=== PATIENT | female | born 1965 | race Caucasian/White ===

== ENCOUNTER 2016-03-07 11:01 | Day surgery (SDC) | payer MEDICARE ==
[2016-03-06 09:43] VITALS: BMI 30.4
[~2016-03-07 11:01] MED LIST: ALBUTEROL NEB (CONC) 2.5 MG/0.5 ML INHALATION ONE; ATROPINE SULFATE 0.4 MG/ML 1 ML VIAL IM ONE; LACTATED RINGERS 1,000 ML IV ONE; LACTATED RINGERS 1,000 ML IV SCH; LIDOCAINE 2% (PF) 20 MG/ML 10ML INHALATION ONE
[2016-03-07] MEDS ORDERED: PROPOFOL 10 MG/ML 20 ML VIAL IV ONE (12:11)
[2016-03-07] MEDS ORDERED: LIDOCAINE 2% INJ 20 MG/ML INTRATRACH ONE (12:19)
[2016-03-07] MEDS: HYDROmorphone 1 MG/ML 1 ML SYRINGE IVP ONE ×2 (13:18→13:24)
[2016-03-07] MEDS ORDERED: LEVALBUTEROL NEB 1.25 MG/3 ML AMP INHALATION PRN (13:38)
[2016-03-07] MEDS: SODIUM CHLORIDE 0.9% 1,000 ML IV SCH (14:06)
--- NOTE | 2016-03-07 14:12 | XR ---
EXAMINATION TYPE: XR chest 2V DATE OF EXAM: 03/07/2016 2:01 PM COMPARISON: 12/11/2015 HISTORY: asthma exacerbation TECHNIQUE: Frontal and lateral views of the chest are obtained. FINDINGS: There is no focal air space opacity, pleural effusion, or pneumothorax seen. The cardiac silhouette size is within normal limits. The osseous structures are intact. Right-sided MediPort ca theter is unchanged in position. IMPRESSION: No acute cardiopulmonary process.
[2016-03-07] MEDS: LEVOFLOXACIN 500 MG TAB PO SCH (14:33)
[2016-03-07] MEDS: methylPREDNISolone SOD SUCCI 125 MG/2 ML VIAL IV SCH ×3 (14:34→23:16)
[2016-03-07 14:54] LABS: Anisocytosis Slight; Basophils % (A) 0 %; CH 28.8; CHCM 31.4; Eosinophils % (A) 1 %; HCT 40.8 % (34.0-46.0); HDW 2.24; HGB 12.5 gm/dL (11.4-16.0); Luc # (Auto) 0.16; Luc % (Auto) 2; Lymphocytes # (A) 1.1 k/uL (1.0-4.8); Lymphocytes % (A) 17 %; MCH 28.2 pg (25.0-35.0); MCHC 30.7 g/dL (31.0-37.0); MCV 92.2 fL (80.0-100.0); Mean Platelet Volume 6.3; Monocytes # (A) 0.5 k/uL (0-1.0); Monocytes % (A) 8 %; Neutrophils # (A) 4.7 k/uL (1.3-7.7); Neutrophils % (A) 72 %; RBC 4.42 m/uL (3.80-5.40); RDW 16.2 % (11.5-15.5); WBC 6.6 k/uL (3.8-10.6); WBC (Perox) 6.67
[2016-03-07 15:08] LABS: Anion Gap 10 mmol/L; Blood Urea Nitrogen 14 mg/dL (7-17); Carbon Dioxide 23 mmol/L (22-30); Chloride 107 mmol/L (98-107); Glucose 82 mg/dL (74-99); Non-African American GFR(MDRD) >60 (>60 ml/min/1.73 sqM); Potassium 4.3 mmol/L (3.5-5.1); Sodium 140 mmol/L (137-145)
[2016-03-07] MEDS ORDERED: PILOCARPINE 5 MG TAB PO PRN (15:43)
[2016-03-07] MEDS ORDERED: MECLIZINE 12.5 MG TAB PO PRN (15:43)
[2016-03-07] MEDS ORDERED: FLUCONAZOLE 100 MG TAB PO PRN (15:43)
[2016-03-07] MEDS: BENZONATATE 100 MG CAP PO SCH ×2 (17:02→21:08)
[2016-03-07] MEDS: clonazePAM 0.5 MG TAB PO SCH ×2 (17:02→21:05)
[2016-03-07 17:18] LABS: RBC, Body Fluid 160 /uL
[2016-03-07] MEDS ORDERED: NON-FORMULARY DRUG (Dimethyl Fumarate [Tecfidera] 240 MG) PO SCH (17:30)
[2016-03-07] MEDS: LEVALBUTEROL NEB 1.25 MG/3 ML AMP INHALATION SCH (19:35)
[2016-03-07] MEDS: BUDESONIDE 1 MG/2 ML NEBU INHALATION SCH (19:35)
[2016-03-07] MEDS: CHOLESTYRAMINE (WITH SUGAR) 4 GM PACKET PO SCH (20:05)
--- NOTE | 2016-03-07 20:29 | PCN ---
DATE OF PROCEDURE: PROCEDURE PERFORMED: Bronchoscopy, airway examination, therapeutic lavage, BAL right middle lobe. PREOPERATIVE DIAGNOSIS: Severe asthma. POSTOPERATIVE DIAGNOSIS: Severe asthma. There was informed consent. There was universal timeout. The patient's procedure took place in Room #1 of [facility]. Provided IV conscious sedation. After the patient was adequately sedated and being fully monitored, the bronchoscope was inserted through the right nostril. It passed through the right nasopharynx into the oropharynx. The hypopharynx was identified and topicalized. The hypopharyngeal structures, including anterior commissure, true cords, false cords, arytenoids, piriform sinuses, right and left vallecula and epiglottis all appeared normal. After topicalization, bronchoscope was pushed through the glottic opening into the trachea. Trachea appeared relatively normal. There were thick secretions noted in the distal trachea and some of the secretions were saddling the tracheal pastor. The right and left mainstem were topicalized. The right upper lobe and its 3 segments, the right middle lobe and its 2 segments, the right lower lobe and its 5 segments, the left upper lobe proper and its 2 segments, the lingula and its 2 segments, and the left lower lobe and its 4 segments all had similar findings of diffuse erythema and bronchitis. There was hyperemia of the airways. The airways were friable. They bled easily. There were thick, yellow secretions noted throughout. They were mostly noted in the right lower lobe and left lower lobe. After they were suctioned, the bronchoscope was wedged into the right middle lobe and the BAL took place. The patient tolerated the procedure well. Additional topicalization took place and the patient's airways were cleansed further. There were no major complications or issues. The patient will be recovered.
[2016-03-07] MEDS: PRAMIPEXOLE 1 MG TAB PO SCH (21:08)
[2016-03-07] MEDS: MONTELUKAST 10 MG TAB PO SCH (21:08)
[2016-03-07] MEDS: HYDROmorphone 2 MG TAB PO PRN (21:09)
[2016-03-07] MEDS: PROMETHAZ-COD 6.25-10 MG/5 ML 5 ML CUP PO PRN (21:10)
[2016-03-08] MEDS: SODIUM CHLORIDE 0.9% 1,000 ML IV SCH ×2 (02:23→17:23)
[2016-03-08] MEDS: HYDROmorphone 2 MG TAB PO PRN ×4 (02:43→19:40)
[2016-03-08] MEDS: methylPREDNISolone SOD SUCCI 125 MG/2 ML VIAL IV SCH ×2 (05:59→11:05)
[2016-03-08] MEDS: PROMETHAZ-COD 6.25-10 MG/5 ML 5 ML CUP PO PRN ×3 (08:04→19:40)
[2016-03-08] MEDS: CHOLECALCIFEROL 1,000 UNIT TAB PO SCH (08:05)
[2016-03-08] MEDS: PRAMIPEXOLE 1 MG TAB PO SCH ×2 (08:05→20:57)
[2016-03-08] MEDS: HYDROCORTISONE 10 MG TAB PO SCH ×2 (08:06→11:06)
[2016-03-08] MEDS: PANTOPRAZOLE 40 MG TABLET PO SCH (08:06)
[2016-03-08] MEDS: clonazePAM 0.5 MG TAB PO SCH ×3 (08:07→20:56)
[2016-03-08] MEDS: CHOLESTYRAMINE (WITH SUGAR) 4 GM PACKET PO SCH ×2 (08:08→19:44)
[2016-03-08] MEDS: FLUDROCORTISONE 0.1 MG TAB PO SCH (08:08)
[2016-03-08] MEDS: FERROUS SULFATE 325 MG TAB PO SCH (08:08)
[2016-03-08] MEDS: BENZONATATE 100 MG CAP PO SCH ×3 (08:08→20:57)
[2016-03-08] MEDS: LEVALBUTEROL NEB 1.25 MG/3 ML AMP INHALATION SCH ×3 (09:05→19:20)
[2016-03-08] MEDS: BUDESONIDE 1 MG/2 ML NEBU INHALATION SCH ×2 (09:05→19:19)
[2016-03-08] MEDS: VORTIOXETINE HYDROBROMIDE 20 MG PO SCH (11:05)
--- NOTE | 2016-03-08 12:43 | P.HPIM ---
History of Present Illness H&P Date: 03/08/16 50-year-old female being seen at the request of pulmonary service for medical management. Patient underwent a bronchoscopy airway exam therapeutic lavage BAL the right middle lobe on March [address] Dougherty Patient states her last bronchoscopy was done in December 2015. Patient does have a history of severe asthma with difficulty clearing airway due to patient's history of multiple sclerosis patient states diagnosed with severe asthma in 2007 and has been followed closely by pulmonology service who is been managing her asthma symptoms. Patient additionally states in 2004 was diagnosed with multiple sclerosis does see a neurology Dr. Currently is resting comfortably in bed appears in no acute distress pulmonology participating in the plan of care Review of Systems Essentially unremarkable except as mentioned at the present illness Past Medical History Past Medical History: Asthma, COPD, Fibromyalgia, GERD/Reflux, Neurologic Disorder, Osteoarthritis (OA), Sleep Apnea/CPAP/BIPAP, Supraventricular Tachycardia (SVT) Additional Past Medical History / Comment(s): multiple sclerosis,optic neuritis, anemia,migraines,adrenal insufficiency,auto immune hepatitis, uses c-pap machine , avascular necrosis, uses cane and has knee brace. History of Any Multi-Drug Resistant Organisms: None Reported Past Surgical History: Bowel Resection, Cholecystectomy, Heart Catheterization, Hysterectomy, Joint Replacement, Orthopedic Surgery, Tonsillectomy Additional Past Surgical History / Comment(s): sinus surgery,blepharoplasty jayleen eyes,POWER PORT -IMPLANTABLE PORT-under right clavicle-bowel adhesions, rt knee replacement , 8 INCH BOWEL REMOVED, jayleen total hip replacement.03-07-16 BRONCHOSCOPY Past Anesthesia/Blood Transfusion Reactions: Blood Transfusion Reaction Additional Past Anesthesia/Blood Transfusion Reaction / Comment(s): HX OF BLOOD TRANSFUSION : HAS CARD STATING K ANTIBODY AFTER RECEIVING A TRANSFUSION Past Psychological History: Anxiety, Depression Smoking Status: Never smoker Past Alcohol Use History: Rare Past Drug Use History: None Reported - Past Family History Mother Family Medical History: Hypertension Father Family Medical History: Hypertension Brother(s) Additional Family Medical History / Comment(s): Brother-[place] X2 Medications and Allergies Home Medications Medication Instructions Recorded Confirmed Type Albuterol Inhaler [Ventolin Hfa 2 puff INHALATION RT-QID PRN 07/14/13 03/06/16 History Inhaler] Fluconazole [Diflucan] 100 mg PO DAILY PRN 07/14/13 03/06/16 History Montelukast [Singulair] 10 mg PO HS 07/14/13 03/06/16 History HYDROmorphone [Dilaudid] 4 mg PO Q4-6H PRN 08/03/13 03/06/16 History Cholecalciferol [Vitamin D3] 12,000 unit PO DAILY 07/22/14 03/06/16 History Meclizine [Antivert] 12.5 mg PO Q8HR PRN 08/28/14 03/06/16 History clonazePAM [KlonoPIN] 0.5 mg PO TID 01/25/15 03/06/16 History Cholestyramine (with Sugar) 4 gm PO BID 07/25/15 03/06/16 History [Questran Packet] Esomeprazole Magnesium [NexIUM] 40 mg PO QAM 07/25/15 03/06/16 History Dimethyl Fumarate [Tecfidera] 240 mg PO BID 11/19/15 03/06/16 History Ferrous Sulfate [Iron (65 MG 325 mg PO DAILY 11/19/15 03/06/16 History Elemental)] Fluticasone/Vilanterol [Breo 1 puff INHALATION RT-DAILY 11/19/15 03/06/16 History Ellipta 200-25 Mcg INH] Hydrocortisone [Cortef] 5 mg PO W/LUNCH 11/19/15 03/06/16 History Hydrocortisone [Cortef] 15 mg PO DAILY 11/19/15 03/06/16 History hydrOXYzine PAMOATE [Vistaril] 100 mg PO DAILY PRN 11/19/15 03/06/16 History Pilocarpine [Salagen] 5 mg PO QID PRN 12/11/15 03/06/16 History Vortioxetine Hydrobromide 20 mg PO QAM 12/11/15 03/06/16 History [Trintellix] Xeomin Inj 1 injection IM Q90D 12/11/15 03/06/16 History Benzonatate [Tessalon Perles] 200 mg PO TID 03/06/16 03/06/16 History Fludrocortisone [Florinef] 0.1 mg PO QAM 03/06/16 03/06/16 History Pramipexole Di-HCl [Mirapex] 1 mg PO BID 03/06/16 03/06/16 History Promethaz-Cod 6.25-10 mg/5 ml 5 ml PO DIRECTED PRN 03/06/16 03/06/16 History [Phenergan with Codeine] QUEtiapine [SEROquel] 50 mg PO HS 03/06/16 03/06/16 History Esomeprazole Magnesium [NexIUM] 40 mg PO DAILY 03/07/16 03/07/16 History Mometasone Inhalr 220 Mcg/Puff 2 puff INHALATION 03/07/16 History [Asmanex] Allergies Allergy/AdvReac Type Severity Reaction Status Date / Time bupropion HCl Allergy Severe Rash/Hives Verified 03/06/16 09:12 [From Wellbutrin] lamotrigine [From Lamictal] Allergy Severe Rash/Hives Verified 03/06/16 09:12 milk Allergy Severe Nausea & Verified 03/06/16 09:12 Vomiting oxaprozin [From Daypro] Allergy Severe Rash/Hives Verified 03/06/16 09:12 Penicillins Allergy Severe Rash/Hives Verified 03/06/16 09:12 soy Allergy Severe Nausea & Verified 03/06/16 09:12 Vomiting & Diarrhea Sulfa (Sulfonamide Allergy Severe Anaphylaxis Verified 03/06/16 09:12 Antibiotics) apple Allergy Unknown diarrhea, Verified 03/06/16 09:12 bloating, upset stomach. azithromycin Allergy Unknown Rash/Hives, Verified 03/06/16 09:12 RED SKING, ITCHING banana Allergy Unknown diarrhea, Verified 03/06/16 09:12 bloating, upset stomach doxycycline Allergy Unknown Rash/Hives Verified 03/06/16 09:12 latex Allergy Unknown Blisters Verified 03/06/16 09:12 albumin human Allergy Rash/Hives Verified 03/07/16 11:31 [From Rebif (with albumin)] dicyclomine [From Bentyl] Allergy Rash/Hives Verified 03/07/16 11:29 duloxetine [From Cymbalta] Allergy Rash/Hives Verified 03/07/16 11:30 wheat Allergy Nausea & Verified 03/06/16 09:12 Vomiting & Diarrhea Beef Containing Products AdvReac Severe bloating, Verified 03/06/16 09:12 abd pain, nasal congestion corn [[place]] AdvReac Severe Nausea & Verified 03/06/16 09:12 Vomiting & Diarrhea Egg Derived AdvReac Severe bloating, Verified 03/06/16 09:12 abd pain, nasal congestion gluten AdvReac Severe Nausea & Verified 03/06/16 09:12 Vomiting & Diarrhea interferon beta AdvReac Severe Rash/Hives Verified 03/06/16 09:12 interferon beta-1a AdvReac Severe Rash/Hives Verified 03/06/16 09:12 [From Avonex] peanut AdvReac Severe bloating, Verified 03/06/16 09:12 abd pain, nasal congestion tomato [Tomato] AdvReac Severe bloating, Verified 03/06/16 09:12 abd pain, nasal congestion Pork/Porcine Containing AdvReac Mild Abdominal Verified 03/06/16 09:15 Products Pain, bloating, nasal congestion ADHESIVE Allergy Severe BLISTERS Uncoded 03/06/16 09:12 TO SKIN MASTISOL Allergy Severe BLISTERS Uncoded 03/06/16 09:12 TO SKIN STERISTRIPS Allergy Severe BLISTERS Uncoded 03/06/16 09:12 TO SKIN METAL Allergy Unknown RASH AND Uncoded 03/06/16 09:12 BLISTERS TO SKIN obrien's yeast AdvReac Severe bloating, Uncoded 03/06/16 09:12 abd pain, nasal congestion Physical Exam Vitals: Vital Signs Temp Pulse Pulse Pulse Resp BP BP 03/08/16 09:29 116 H 03/08/16 09:05 104 H 03/08/16 07:00 96.7 F L 73 18 124/75 03/07/16 22:49 98.2 F 91 20 123/78 03/07/16 19:51 88 03/07/16 19:35 88 03/07/16 15:00 97.4 F L 84 22 125/76 03/07/16 14:07 16 03/07/16 13:15 68 16 145/86 03/07/16 13:00 65 18 135/90 03/07/16 12:45 70 20 133/85 03/07/16 12:28 97.5 F L 72 20 117/73 Pulse Ox 03/08/16 09:29 03/08/16 09:05 03/08/16 07:00 97 03/07/16 22:49 97 03/07/16 19:51 03/07/16 19:35 03/07/16 15:00 96 03/07/16 14:07 03/07/16 13:15 97 03/07/16 13:00 93 L 03/07/16 12:45 96 03/07/16 12:28 95 Intake and Output 03/07/16 03/08/16 03/08/16 22:59 06:59 14:59 Intake Total 200 Balance 200 Intake: Oral 200 Other: # Voids 1 GENERAL APPEARANCE: 50-year-old female patient is alert, oriented, in no acute distress. Sitting up in bed pleasant cooperative talkative appearing in no acute respiratory distress VITAL SIGNS reviewed: HEENT: Head is normocephalic and atraumatic. Pupils are equal and reactive. The nares are patent. Oropharynx is clear without lesions. NECK: Supple without lymphadenopathy. Traches midline. HEART: S1, S2. Regular rate and rhythm. No murmur noted denying chest pain Chest MediPort in place right anterior chest wall patent LUNGS: Posterior diminished at the bases bilateral coarse prolonged expiratory wheezing noted occasional dry nonproductive cough noted. Sats on 2 L are 97% ABDOMEN: Soft, nontender, nondistended with good bowel sounds. No peritoneal signs. No palpable organomegaly or masses. EXTREMITIES: Normal skin color and turgor. No cyanosis, rash, ulceration, clubbing or edema. Radial pedal pulses are 2/4 bilaterally. Results CBC & Chem 7: 03/07/16 14:31 03/07/16 14:31 Labs: Abnormal Lab Results - Last 24 Hours (Table) 03/07/16 Range/Units 14:31 MCHC 30.7 L (31.0-37.0) g/dL RDW 16.2 H (11.5-15.5) % Microbiology - Last 24 Hours (Table) 03/07/16 12:15 Gram Stain - Preliminary Bronchial Washings - Left Bronchial Washings Culture - Preliminary 03/07/16 12:15 Fungal Culture - Preliminary Bronchial Washings - Left 03/07/16 12:15 Acid Fast Bacilli Culture - Preliminary Bronchial Washings - Left Thrombosis Risk Factor Assmnt - Choose All That Apply Each Factor Represents 1 point: Abnormal pulmonary function (COPD), Age 41-60 years, Obesity (BMI >25) Other Risk Factors: No Thrombosis Risk Factor Assessment Total Risk Factor Score: 3 Thrombosis Risk Factor Assessment Level: Moderate Risk Assessment and Plan Plan: Impression History of severe asthma History of multiple sclerosis diagnosed in 2004 Physical debilitated due to chronic illness History of severe asthma with reoccurring bronchoscopy Status post March 07 bronchoscopic airway exam therapeutic lavage BAL right middle lobe due to severe asthma Obstructive sleep apnea moderate in severity within AHI of 17 Chronic bronchial asthma Chronic anemia Hypothyroid Hyperlipidemia History of adrenal insufficiency Plan Resume home meds as appropriate Pulmonary management defer to DVT and GI prophylaxis Titrate the O2 keep sats greater than 90% Further recommendations pending will follow medical course addressing medical issues as they arise The above dictated assessment and findings were discussed with dr santiago . Impression and the plan of care have been dictated as directed. Zeny Paige nurse practitioner acting as a scribe for dr santiago
[2016-03-08] MEDS: LEVOFLOXACIN 500 MG TAB PO SCH (13:03)
--- NOTE | 2016-03-08 13:05 | P.CNPUL ---
History of Present Illness Consult date: 03/08/16 Requesting physician: Marzena Quintanilla Reason for consult: asthma Chief complaint: Shortness of breath, cough congestion. History of present illness: This is a very pleasant 50-year-old female patient who follows with Dr. Dougherty as her primary care physician. She has a history of multiple sclerosis, obstructive sleep apnea, avascular necrosis of the left hip status post left hip arthroplasty, SVT, hypothyroidism, anemia, adrenal insufficiency, autoimmune hepatitis, pots. She presented here yesterday for an outpatient bronchoscopy with Dr. Dougherty and subsequently admitted after failing outpatient therapy for acute exacerbation of her asthma. She is seen today in consultation. She is on the regular medical floor. She is awake and alert in no acute distress. She denies any worsening shortness of breath, cough or congestion. She is not quite back to her baseline. She's been maintained on Levaquin. Her chest x-ray reveals no acute pulmonary process. She is maintaining good O2 saturations in the upper 90s on room air. She's been afebrile. No leukocytosis. Bronchial wash cultures are pending. Review of Systems 14 point review of system was conducted. All negative other than his medications the HPI. Past Medical History Past Medical History: Asthma, COPD, Fibromyalgia, GERD/Reflux, Neurologic Disorder, Osteoarthritis (OA), Sleep Apnea/CPAP/BIPAP, Supraventricular Tachycardia (SVT) Additional Past Medical History / Comment(s): multiple sclerosis,optic neuritis, anemia,migraines,adrenal insufficiency,auto immune hepatitis, uses c-pap machine , avascular necrosis, uses cane and has knee brace. History of Any Multi-Drug Resistant Organisms: None Reported Past Surgical History: Bowel Resection, Cholecystectomy, Heart Catheterization, Hysterectomy, Joint Replacement, Orthopedic Surgery, Tonsillectomy Additional Past Surgical History / Comment(s): sinus surgery,blepharoplasty jayleen eyes,POWER PORT -IMPLANTABLE PORT-under right clavicle-bowel adhesions, rt knee replacement , 8 INCH BOWEL REMOVED, jayleen total hip replacement.03-07-16 BRONCHOSCOPY Past Anesthesia/Blood Transfusion Reactions: Blood Transfusion Reaction Additional Past Anesthesia/Blood Transfusion Reaction / Comment(s): HX OF BLOOD TRANSFUSION : HAS CARD STATING K ANTIBODY AFTER RECEIVING A TRANSFUSION Past Psychological History: Anxiety, Depression Smoking Status: Never smoker Past Alcohol Use History: Rare Past Drug Use History: None Reported - Past Family History Mother Family Medical History: Hypertension Father Family Medical History: Hypertension Brother(s) Additional Family Medical History / Comment(s): Brother-[place] X2 Medications and Allergies Home Medications Medication Instructions Recorded Confirmed Type Albuterol Inhaler [Ventolin Hfa 2 puff INHALATION RT-QID PRN 07/14/13 03/06/16 History Inhaler] Fluconazole [Diflucan] 100 mg PO DAILY PRN 07/14/13 03/06/16 History Montelukast [Singulair] 10 mg PO HS 07/14/13 03/06/16 History HYDROmorphone [Dilaudid] 4 mg PO Q4-6H PRN 08/03/13 03/06/16 History Cholecalciferol [Vitamin D3] 12,000 unit PO DAILY 07/22/14 03/06/16 History Meclizine [Antivert] 12.5 mg PO Q8HR PRN 08/28/14 03/06/16 History clonazePAM [KlonoPIN] 0.5 mg PO TID 01/25/15 03/06/16 History Cholestyramine (with Sugar) 4 gm PO BID 07/25/15 03/06/16 History [Questran Packet] Esomeprazole Magnesium [NexIUM] 40 mg PO QAM 07/25/15 03/06/16 History Dimethyl Fumarate [Tecfidera] 240 mg PO BID 11/19/15 03/06/16 History Ferrous Sulfate [Iron (65 MG 325 mg PO DAILY 11/19/15 03/06/16 History Elemental)] Fluticasone/Vilanterol [Breo 1 puff INHALATION RT-DAILY 11/19/15 03/06/16 History Ellipta 200-25 Mcg INH] Hydrocortisone [Cortef] 5 mg PO W/LUNCH 11/19/15 03/06/16 History Hydrocortisone [Cortef] 15 mg PO DAILY 11/19/15 03/06/16 History hydrOXYzine PAMOATE [Vistaril] 100 mg PO DAILY PRN 11/19/15 03/06/16 History Pilocarpine [Salagen] 5 mg PO QID PRN 12/11/15 03/06/16 History Vortioxetine Hydrobromide 20 mg PO QAM 12/11/15 03/06/16 History [Trintellix] Xeomin Inj 1 injection IM Q90D 12/11/15 03/06/16 History Benzonatate [Tessalon Perles] 200 mg PO TID 03/06/16 03/06/16 History Fludrocortisone [Florinef] 0.1 mg PO QAM 03/06/16 03/06/16 History Pramipexole Di-HCl [Mirapex] 1 mg PO BID 03/06/16 03/06/16 History Promethaz-Cod 6.25-10 mg/5 ml 5 ml PO DIRECTED PRN 03/06/16 03/06/16 History [Phenergan with Codeine] QUEtiapine [SEROquel] 50 mg PO HS 03/06/16 03/06/16 History Esomeprazole Magnesium [NexIUM] 40 mg PO DAILY 03/07/16 03/07/16 History Mometasone Inhalr 220 Mcg/Puff 2 puff INHALATION 03/07/16 History [Asmanex] Allergies Allergy/AdvReac Type Severity Reaction Status Date / Time bupropion HCl Allergy Severe Rash/Hives Verified 03/06/16 09:12 [From Wellbutrin] lamotrigine [From Lamictal] Allergy Severe Rash/Hives Verified 03/06/16 09:12 milk Allergy Severe Nausea & Verified 03/06/16 09:12 Vomiting oxaprozin [From Daypro] Allergy Severe Rash/Hives Verified 03/06/16 09:12 Penicillins Allergy Severe Rash/Hives Verified 03/06/16 09:12 soy Allergy Severe Nausea & Verified 03/06/16 09:12 Vomiting & Diarrhea Sulfa (Sulfonamide Allergy Severe Anaphylaxis Verified 03/06/16 09:12 Antibiotics) apple Allergy Unknown diarrhea, Verified 03/06/16 09:12 bloating, upset stomach. azithromycin Allergy Unknown Rash/Hives, Verified 03/06/16 09:12 RED SKING, ITCHING banana Allergy Unknown diarrhea, Verified 03/06/16 09:12 bloating, upset stomach doxycycline Allergy Unknown Rash/Hives Verified 03/06/16 09:12 latex Allergy Unknown Blisters Verified 03/06/16 09:12 albumin human Allergy Rash/Hives Verified 03/07/16 11:31 [From Rebif (with albumin)] dicyclomine [From Bentyl] Allergy Rash/Hives Verified 03/07/16 11:29 duloxetine [From Cymbalta] Allergy Rash/Hives Verified 03/07/16 11:30 wheat Allergy Nausea & Verified 03/06/16 09:12 Vomiting & Diarrhea Beef Containing Products AdvReac Severe bloating, Verified 03/06/16 09:12 abd pain, nasal congestion corn [[place]] AdvReac Severe Nausea & Verified 03/06/16 09:12 Vomiting & Diarrhea Egg Derived AdvReac Severe bloating, Verified 03/06/16 09:12 abd pain, nasal congestion gluten AdvReac Severe Nausea & Verified 03/06/16 09:12 Vomiting & Diarrhea interferon beta AdvReac Severe Rash/Hives Verified 03/06/16 09:12 interferon beta-1a AdvReac Severe Rash/Hives Verified 03/06/16 09:12 [From Avonex] peanut AdvReac Severe bloating, Verified 03/06/16 09:12 abd pain, nasal congestion tomato [Tomato] AdvReac Severe bloating, Verified 03/06/16 09:12 abd pain, nasal congestion Pork/Porcine Containing AdvReac Mild Abdominal Verified 03/06/16 09:15 Products Pain, bloating, nasal congestion ADHESIVE Allergy Severe BLISTERS Uncoded 03/06/16 09:12 TO SKIN MASTISOL Allergy Severe BLISTERS Uncoded 03/06/16 09:12 TO SKIN STERISTRIPS Allergy Severe BLISTERS Uncoded 03/06/16 09:12 TO SKIN METAL Allergy Unknown RASH AND Uncoded 03/06/16 09:12 BLISTERS TO SKIN obrien's yeast AdvReac Severe bloating, Uncoded 03/06/16 09:12 abd pain, nasal congestion Physical Exam Vitals: Vital Signs Temp Pulse Pulse Pulse Resp BP BP 03/08/16 09:29 116 H 03/08/16 09:05 104 H 03/08/16 07:00 96.7 F L 73 18 124/75 03/07/16 22:49 98.2 F 91 20 123/78 03/07/16 19:51 88 03/07/16 19:35 88 03/07/16 15:00 97.4 F L 84 22 125/76 03/07/16 14:07 16 03/07/16 13:15 68 16 145/86 03/07/16 13:00 65 18 135/90 Pulse Ox 03/08/16 09:29 03/08/16 09:05 03/08/16 07:00 97 03/07/16 22:49 97 03/07/16 19:51 03/07/16 19:35 03/07/16 15:00 96 03/07/16 14:07 03/07/16 13:15 97 03/07/16 13:00 93 L Intake and Output 03/07/16 03/08/16 03/08/16 22:59 06:59 14:59 Intake Total 200 Balance 200 Intake: Oral 200 Other: # Voids 1 GENERAL EXAM: Alert, active, comfortable in no apparent distress. HEAD: Normocephalic. EYES: Normal reaction of pupils, equal size. NOSE: Clear with pink turbinates. THROAT: No erythema or exudates. NECK: No masses, no JVD. CHEST: No chest wall deformity. LUNGS: Equal air entry with no crackles, wheeze, rhonchi or dullness. CVS: S1 and S2 normal with no audible mumurs, regular rhythm. ABDOMEN: No hepatosplenomegaly, normal bowel sounds, no guarding or rigidity. SPINE: No scoliosis or deformity SKIN: No rashes CENTRAL NERVOUS SYSTEM: No focal deficits, tone is normal in all 4 extremities. Extremities: There is no significant peripheral edema. No clubbing, no cyanosis. Peripheral pulses are intact. Results - Laboratory Findings CBC and BMP: 03/07/16 14:31 03/07/16 14:31 Abnormal lab findings: Abnormal Labs 03/07/16 03/07/16 12:15 14:31 MCHC 30.7 L RDW 16.2 H Viral Test See Below H - Diagnostic Findings Chest x-ray: image reviewed (No acute pulmonary process.) Assessment and Plan Plan: Impression: #1 Acute exacerbation of severe persistent chronic bronchial asthma. Status post bronchoscopy with BAL, cultures of which are pending. #2 Obstructive sleep apnea, moderate in severity with an AHI of 17. #3 Multiple sclerosis with a history of optic neuritis. #4 History of autoimmune hepatitis. #5 Adrenal insufficiency. #6 Chronic anemia. #7 Hypothyroidism. #8 Hyperlipidemia. #9 History of avascular necrosis of the left hip, status post total left hip arthroplasty. Plan: The patient's case was reviewed and discussed with Dr. Irwin. We'll continue with her current medications including Pulmicort inhalations twice a day, Tessalon Perles, Xopenex inhalations 3 times a day and when necessary, Singulair, empiric antibiotics in the form of Levaquin. She'll remain on her usual dose of Cortef. She does complain of insomnia. We'll discontinue the IV Solu-Medrol. Will increase her activity as tolerated. We'll continue to follow make further recommendations based on her clinical status.
--- NOTE | 2016-03-08 13:09 | P.PN ---
Progress Note - Text Patient seen and examined by me H&P dictated by Zeny Paige nurse practionner working with me today.
[2016-03-08] MEDS: HEPARIN SODIUM,PORCINE 5,000 UNIT/ML 1 ML VIAL SQ SCH ×2 (15:16→22:59)
[2016-03-08] MEDS: MONTELUKAST 10 MG TAB PO SCH (20:57)
[2016-03-08] MEDS ORDERED: traZODone HCL 50 MG TAB PO SCH (21:00)
[2016-03-09] MEDS: SODIUM CHLORIDE 0.9% 1,000 ML IV SCH (05:20)
[2016-03-09 07:34] VITALS: BP 122/82; RESP 18; TEMP 96.4
[2016-03-09] MEDS: clonazePAM 0.5 MG TAB PO SCH (08:03)
[2016-03-09] MEDS: HEPARIN SODIUM,PORCINE 5,000 UNIT/ML 1 ML VIAL SQ SCH (08:03)
[2016-03-09] MEDS: HYDROmorphone 2 MG TAB PO PRN (08:04)
[2016-03-09] MEDS: PROMETHAZ-COD 6.25-10 MG/5 ML 5 ML CUP PO PRN (08:04)
[2016-03-09] MEDS: BENZONATATE 100 MG CAP PO SCH (08:04)
[2016-03-09] MEDS: CHOLESTYRAMINE (WITH SUGAR) 4 GM PACKET PO SCH (08:05)
[2016-03-09] MEDS: PANTOPRAZOLE 40 MG TABLET PO SCH (08:05)
[2016-03-09] MEDS: VORTIOXETINE HYDROBROMIDE 20 MG PO SCH (08:05)
[2016-03-09] MEDS: CHOLECALCIFEROL 1,000 UNIT TAB PO SCH (08:05)
[2016-03-09] MEDS: HYDROCORTISONE 10 MG TAB PO SCH ×2 (08:05→11:45)
[2016-03-09] MEDS: FERROUS SULFATE 325 MG TAB PO SCH (08:05)
[2016-03-09] MEDS: FLUDROCORTISONE 0.1 MG TAB PO SCH (08:05)
[2016-03-09] MEDS: PRAMIPEXOLE 1 MG TAB PO SCH (08:05)
[2016-03-09] MEDS: BUDESONIDE 1 MG/2 ML NEBU INHALATION SCH (08:55)
[2016-03-09] MEDS: LEVALBUTEROL NEB 1.25 MG/3 ML AMP INHALATION SCH ×2 (08:55→13:41)
--- NOTE | 2016-03-09 10:28 | P.PN ---
Subjective 50-year-old being seen on rounds this morning currently sitting up in bed. Patient states breathing has improved. no new events. Patient is being followed by pulmonology service. Patient was admitted on Thursday outpatient bronchoscopy Dr. terry subsequently admitted being treated currently for an acute exacerbation of asthma patient has been afebrile and is sitting up in the bed does not appear to be any acute distress talkative bronchial washings pending blood cultures pending no growth 24 hours bronchial washings acid fast bacilli are negative Objective - Vital Signs Vital signs: Vital Signs Temp 96.4 F L 03/09/16 07:00 Pulse 96 03/09/16 09:14 Resp 18 03/09/16 07:00 BP 122/82 03/09/16 07:00 Pulse Ox 95 03/09/16 07:00 Intake & Output 03/08/16 03/09/16 03/09/16 18:59 06:59 18:59 Intake Total 600 Balance 600 Intake: IV 600 Sodium Chloride 0.9% 1, 600 000 ml @ 75 mls/hr IV . [id number] [facility] Rx#:[id number] Other: # Voids 3 1 - Exam Physical exam 50-year-old female pleasant cooperative oriented 3 talkative watching television sitting up in bed Lungs bilateral adequate air entry. Not able to appreciate any wheezing this morning no cough noted on room air sats are 95 -96% Heart S1-S2 audible regular Abdomen soft nontender reports no nausea vomiting Extremities no edema tenderness - Labs CBC & Chem 7: 03/07/16 14:31 03/07/16 14:31 Labs: Abnormal Lab Results - Last 24 Hours (Table) 03/07/16 Range/Units 12:15 Viral Test See Below H Microbiology - Last 24 Hours (Table) 03/07/16 12:15 Acid Fast Bacilli Smear - Final Bronchial Washings - Left Acid Fast Bacilli Culture - Preliminary 03/07/16 14:31 Blood Culture - Preliminary Blood No Growth after 24 hours 03/07/16 14:23 Blood Culture - Preliminary Blood No Growth after 24 hours Assessment and Plan Plan: Impression History of severe asthma History of multiple sclerosis diagnosed in 2004 Physical debilitated due to chronic illness History of severe asthma with reoccurring bronchoscopy Status post March 07 bronchoscopic airway exam therapeutic lavage BAL right middle lobe due to severe asthma Obstructive sleep apnea moderate in severity within AHI of 17 Chronic bronchial asthma Chronic anemia Hypothyroid Hyperlipidemia History of adrenal insufficiency History of avascular necrosis of the left hip status post total left hip arthroplasty Plan Pulmonary to follow-up on the bronchial washings continue with current plan of care per pulmonology service Resume home meds as appropriate DVT and GI prophylaxis Titrate the O2 keep sats greater than 90% Continue the Levaquin 500 mg daily as ordered Continue Cortef home dose Further recommendations pending will follow medical course addressing medical issues as they arise The above dictated assessment and findings were discussed with dr santiago . Impression and the plan of care have been dictated as directed. Zeny Paige nurse practitioner acting as a scribe for dr santiago
[2016-03-09 13:44] VITALS: PULSE 100
--- NOTE | 2016-03-09 13:52 | P.DS ---
Providers Expected date of discharge: 03/09/16 Attending physician: Josselin Gloria Consults: 03/07/16 13:10 Consult Physician Routine Consulting Provider: Seferino Dougherty Consult Reason/Comments: post bronch Do you want consulting provider notified?: Already Contacted Primary care physician: Seferino Dougherty Hospital Course: Diagnoses on discharge #1 acute asthma exacerbation, patient underwent bronchoscopy with BAL. Culture results pending #2 underlying history of obstructive sleep apnea #3 underlying history of multiple sclerosis #4 underlying history of autoimmune hepatitis #5 underlying history of adrenal insufficiency #6 underlying history of chronic anemia #7 hypothyroidism #8 hyperlipidemia #9 and underlying history of avascular necrosis of the left hip with history of left total hip arthroplasty Hospital course Patient is a 50-year-old female who follows with Dr. Irwin and Dr. Lucia as outpatient who had worsening cough and shortness of breath she underwent bronchoscopy with BAL. Culture results are still pending. Patient improved significantly after bronchoscopy, she was evaluated today by Dr. Irwin and was cleared for discharge. During this admission patient was maintained on Levaquin and Diflucan. Per Dr. Irwin recommendation discontinue Levaquin and discontinue Diflucan. No need for antibiotic at the time of discharge. Patient will be discharged home on . She follows with Dr. Dougherty as her primary care physician she was instructed to follow-up with him within 2-3 days Plan - Discharge Summary Discharge Medication List Albuterol Inhaler [Ventolin Hfa Inhaler] 2 puff INHALATION RT-QID PRN 07/14/13 [ History] Montelukast [Singulair] 10 mg PO HS 07/14/13 [History] HYDROmorphone [Dilaudid] 4 mg PO Q4-6H PRN 08/03/13 [History] Cholecalciferol [Vitamin D3] 12,000 unit PO DAILY 07/22/14 [History] Meclizine [Antivert] 12.5 mg PO Q8HR PRN 08/28/14 [History] clonazePAM [KlonoPIN] 0.5 mg PO TID 01/25/15 [History] Cholestyramine (with Sugar) [Questran Packet] 4 gm PO BID 07/25/15 [History] Esomeprazole Magnesium [NexIUM] 40 mg PO QAM 07/25/15 [History] Dimethyl Fumarate [Tecfidera] 240 mg PO BID 11/19/15 [History] Ferrous Sulfate [Iron (65 MG Elemental)] 325 mg PO DAILY 11/19/15 [History] Fluticasone/Vilanterol [Breo Ellipta 200-25 Mcg INH] 1 puff INHALATION RT-DAILY 11/19/15 [History] Hydrocortisone [Cortef] 5 mg PO W/LUNCH 11/19/15 [History] Hydrocortisone [Cortef] 15 mg PO DAILY 11/19/15 [History] hydrOXYzine PAMOATE [Vistaril] 100 mg PO DAILY PRN 11/19/15 [History] Pilocarpine [Salagen] 5 mg PO QID PRN 12/11/15 [History] Vortioxetine Hydrobromide [Trintellix] 20 mg PO QAM 12/11/15 [History] Xeomin Inj 1 injection IM Q90D 12/11/15 [History] Benzonatate [Tessalon Perles] 200 mg PO TID 03/06/16 [History] Fludrocortisone [Florinef] 0.1 mg PO QAM 03/06/16 [History] Pramipexole Di-HCl [Mirapex] 1 mg PO BID 03/06/16 [History] Promethaz-Cod 6.25-10 mg/5 ml [Phenergan with Codeine] 5 ml PO DIRECTED PRN 03/06/16 [History] QUEtiapine [SEROquel] 50 mg PO HS 03/06/16 [History] Esomeprazole Magnesium [NexIUM] 40 mg PO DAILY 03/07/16 [History] Mometasone Inhalr 220 Mcg/Puff [Asmanex] 2 puff INHALATION 03/07/16 [History]
[2016-03-09] MEDS: LEVOFLOXACIN 500 MG TAB PO SCH (13:54)
== END 2016-03-09 14:14 | disposition home or self-care (01) ==
LOC: ORWHC2ENDO 11:01 → 4MS4W 12:26 → ORWHC2ENDO 03-09 14:14
PROVIDERS: ATTEND Internal Medicine
DX: J45.901 Unspecified asthma with (acute) exacerbation (principal); J81.1 Chronic pulmonary edema; M79.7 Fibromyalgia; M19.90 Unspecified osteoarthritis, unspecified site; G47.33 Obstructive sleep apnea (adult) (pediatric); F51.9 Sleep disorder not due to a substance or known physiological condition, unspecified; Z99.89 Dependence on other enabling machines and devices; G35 Multiple sclerosis; H46.9 Unspecified optic neuritis; F41.9 Anxiety disorder, unspecified; E27.40 Unspecified adrenocortical insufficiency; F32.9 Major depressive disorder, single episode, unspecified; Z79.51 Long term (current) use of inhaled steroids; Z79.52 Long term (current) use of systemic steroids; Z79.899 Other long term (current) drug therapy; Z88.1 Allergy status to other antibiotic agents; Z91.040 Latex allergy status; Z91.011 Allergy to milk products; Z88.0 Allergy status to penicillin; Z88.8 Allergy status to other drugs, medicaments and biological substances; Z91.018 Allergy to other foods; Z91.012 Allergy to eggs; Z91.010 Allergy to peanuts; Z91.09 Other allergy status, other than to drugs and biological substances
CPT/HCPCS: 94640 ×6; 94760; 87798 ×4; 87496; 87498; 87529 ×2; 88108; 88305; 80048; 89050; 85025; 87040; 87252; 87502 ×2; 87070; 87205; 87116; 87102; 87206; 71020; 31624; J2001 ×2; J0461; J1644 ×2; J2930 ×2; J1170; J1642; J2704

== ENCOUNTER → 2016-03-21 | Outpatient (CLI) | payer MEDICARE | END | disposition home or self-care (01) | LOC: LABWHC1 06:57 | PROVIDERS: ATTEND Internal Medicine Critical Care Medicine | DX: R53.83 Other fatigue (principal); R61 Generalized hyperhidrosis | CPT/HCPCS: 36415; 86308 ==

== ENCOUNTER → 2016-04-25 | Outpatient (CLI) | payer MEDICARE ==
[2016-04-28 21:32] LABS: Pork IgG 3.1 mcg/mL (< 2.0)
[2016-04-28 21:33] LABS: Beef IgG 7.2 mcg/mL (< 2.0); Chicken Meat IgG < 2.0 mcg/mL (< 2.0); Corn IgG 4.5 mcg/mL (< 2.0); Cow's Milk IgG 70.7 mcg/mL (< 2.0); Potato IgG 2.1 mcg/mL (< 2.0); Soybean IgG 2.6 mcg/mL (< 2.0); Tomato IgG < 2.0 mcg/mL (< 2.0); Wheat IgG 4.9 mcg/mL (< 2.0)
== END | disposition home or self-care (01) ==
LOC: LABWHC1 07:57
PROVIDERS: ATTEND Otolaryngology
DX: J30.89 Other allergic rhinitis (principal)
CPT/HCPCS: 36415; 86001

== ENCOUNTER 2016-06-09 12:11 | Inpatient (IN) | payer MEDICARE ==
[2016-06-09] MEDS ORDERED: MECLIZINE 12.5 MG TAB PO PRN (17:00)
[2016-06-09] MEDS ORDERED: PILOCARPINE 5 MG TAB PO PRN (17:00)
[2016-06-09] MEDS ORDERED: ALBUTEROL NEBULIZED 2.5 MG/3 ML INHALATION PRN (17:00)
[2016-06-09] MEDS ORDERED: ACETAMINOPHEN TAB 325 MG TAB PO PRN (17:02)
[2016-06-09] MEDS: HYDROmorphone 2 MG TAB PO PRN (17:16)
[2016-06-09] MEDS: hydrOXYzine PAMOATE 25 MG CAP PO PRN (17:17)
[2016-06-09] MEDS: BENZONATATE 100 MG CAP PO SCH ×2 (17:25→21:59)
[2016-06-09 17:40] LABS: Glucose,Whole Blood 105 mg/dL (75-99)
[2016-06-09] MEDS: LEVALBUTEROL NEB (CONC) 1.25 MG/0.5 ML AMP INHALATION PRN ×2 (17:40→23:32)
[2016-06-09] MEDS: IPRATROPIUM 0.5 MG/2.5 ML NEBU INHALATION PRN ×2 (17:40→23:32)
[2016-06-09] MEDS: INSULIN LISPRO (humaLOG) 300 UNIT/3 ML VIAL SQ SCH ×2 (18:26→21:25)
[2016-06-09] MEDS: SODIUM CHLORIDE 0.9% 1,000 ML IV SCH (18:26)
[2016-06-09] MEDS: methylPREDNISolone SOD SUCCI 125 MG/2 ML VIAL IV SCH ×2 (18:29→23:11)
[2016-06-09] MEDS: FORMOTEROL FUMARATE 20 MCG/2 ML NEBU INHALATION SCH (19:32)
[2016-06-09] MEDS: BUDESONIDE 1 MG/2 ML NEBU INHALATION SCH (19:32)
[2016-06-09] MEDS: LEVALBUTEROL NEB (CONC) 1.25 MG/0.5 ML AMP INHALATION SCH (19:33)
[2016-06-09] MEDS: IPRATROPIUM 0.5 MG/2.5 ML NEBU INHALATION SCH (19:33)
[2016-06-09] MEDS ORDERED: MOMETASONE INHALATION SCH (20:00)
[2016-06-09] MEDS ORDERED: NON-FORMULARY DRUG (Dimethyl Fumarate [Tecfidera] 240 MG) PO SCH (21:00)
[2016-06-09 21:13] LABS: Glucose,Whole Blood 151 mg/dL (75-99)
[2016-06-09] MEDS: CHOLESTYRAMINE (WITH SUGAR) 4 GM PACKET PO SCH (21:24)
[2016-06-09] MEDS: TECFIDERA 240 MG PO SCH (21:24)
[2016-06-09] MEDS: CEFDINIR 300 MG CAP PO SCH (21:25)
[2016-06-09] MEDS: PRAMIPEXOLE 1 MG TAB PO SCH (21:25)
[2016-06-09] MEDS: MONTELUKAST 10 MG TAB PO SCH (21:25)
[2016-06-09] MEDS: traZODone HCL 100 MG TAB PO SCH (21:25)
[2016-06-09] MEDS: clonazePAM 0.5 MG TAB PO SCH (21:25)
[2016-06-09] MEDS: PROMETHAZ-COD 6.25-10 MG/5 ML 5 ML CUP PO PRN (22:00)
[2016-06-09 23:12] LABS: Basophils % (A) 0 %; CH 30.6; CHCM 31.9; Eosinophils % (A) 0 %; HCT 39.1 % (34.0-46.0); HDW 2.32; HGB 12.6 gm/dL (11.4-16.0); Luc # (Auto) 0.14; Luc % (Auto) 3; Lymphocytes # (A) 0.4 k/uL (1.0-4.8); Lymphocytes % (A) 9 %; MCH 31.1 pg (25.0-35.0); MCHC 32.3 g/dL (31.0-37.0); MCV 96.5 fL (80.0-100.0); Mean Platelet Volume 6.6; Monocytes # (A) 0.1 k/uL (0-1.0); Monocytes % (A) 2 %; Neutrophils % (A) 86 %; RBC 4.05 m/uL (3.80-5.40); RDW 13.2 % (11.5-15.5); WBC 4.7 k/uL (3.8-10.6); WBC (Perox) 4.96
[2016-06-09] MEDS: LORATADINE-PSEUDOEPH 5-120 MG 1 EACH TAB.ER.12H PO SCH (23:12)
[2016-06-09 23:25] LABS: ALT 485 U/L (9-52); AST 524 U/L (14-36); Alkaline Phosphatase 161 U/L (38-126); Anion Gap 11 mmol/L; Blood Urea Nitrogen 15 mg/dL (7-17); Calcium 9.1 mg/dL (8.4-10.2); Carbon Dioxide 21 mmol/L (22-30); Chloride 107 mmol/L (98-107); Glucose 181 mg/dL (74-99); Non-African American GFR(MDRD) >60 (>60 ml/min/1.73 sqM); Potassium 4.2 mmol/L (3.5-5.1); Sodium 139 mmol/L (137-145); Total Bilirubin 0.3 mg/dL (0.2-1.3); Total Protein 7.2 g/dL (6.3-8.2)
[2016-06-10] MEDS: methylPREDNISolone SOD SUCCI 125 MG/2 ML VIAL IV SCH ×4 (05:28→22:59)
--- NOTE | 2016-06-10 05:48 | HP ---
DATE OF ADMISSION: 06/09/2016 PRESENTING COMPLAINT: Short of breath, wheezing. HISTORY OF PRESENTING COMPLAINT: This is a pleasant 51-year-old patient who follows with Dr. 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 Patient has a rather extensive medical history. Patient's chronic stable medical conditions include fibromyalgia, GERD, osteoarthritis, multiple sclerosis, optic neuritis, chronic anemia, migraines, adrenal insufficiency, autoimmune hepatitis. Does use CPAP at home. Patient also has go avascular necrosis of both hips with surgery. Patient has been following with Dr. Dougherty in the office getting troubled with sinus symptoms with a course of at least 4 weeks. Patient has tried antibiotics, steroids not really helping. The patient also got a cough and wheezing that has gotten worse now being admitted for the same. Denies any fever. Hepatitis ( ) down. Patient was sent in by Dr. Irwin from the office. REVIEW OF SYSTEMS: CONSTITUTIONAL: Tired. HEENT: As above. RESPIRATORY: As above. CARDIOVASCULAR: None. GASTROINTESTINAL: Heartburn. GENITOURINARY: None. MUSCULOSKELETAL: Aches and pains in multiple joints. DERMATOLOGICAL: None. HEMATOLOGICAL: None. LYMPHATIC: None. PSYCHIATRY: None. NEUROLOGICAL: She has got multiple sclerosis. Past medical history of asthma, fibromyalgia, GERD, osteoarthritis, supraventricular tachycardia, thyroid disorder, multiple sclerosis, optic neuritis, chronic anemia, migraines, adrenal insufficiency, autoimmune hepatitis, uses CPAP. avascular necrosis of both hips. PAST SURGICAL HISTORY: Bowel resection, cholecystectomy, cardiac cath, hysterectomy, tonsillectomy, sinus surgery, blepharoplasty, implantable port under the right clavicle, bowel twisted and 8 inches of bowel had to be removed, right knee replacement, bilateral total hip replacement, bronchoscopy. PSYCH HISTORY: Anxiety, depression. SOCIAL HISTORY: Lives with her . Sometimes uses a cane. Has a knee brace. No smoking. Alcohol rarely. FAMILY HISTORY: Hypertension. Brother had 2 heart attacks. HOME MEDICATIONS: 1. Trazodone 100 mg q.h.s. 2. Vistaril 100 mg p.o. daily p.r.n. 3. Klonopin 0.5 p.o. t.i.d. 4. Xeomin injection IM every 90 days. 5. Trintellix 20 mg p.o. daily. 6. Phenergan with codeine 5 mL p.o. q.12 p.r.n. 7. Mirapex 1 mg p.o. b.i.d. 8. Salagen 5 mg p.o. q.i.d. p.r.n. 9. Singulair 10 mg p.o. q.h.s. 10. Asmanex 220 mcg 2 puffs q.h.s. 11. Antivert 12.5 mg p.o. q.8 p.r.n. 12. Cortef 5 mg p.o. with lunch, 15 mg p.o. daily. 13. Dilaudid 4 mg p.o. q.4 p.r.n. 14. Breo Ellipta 200/25 one puff daily. 15. Nexium 40 mg p.o. daily. 16. Tecfidera 240 mg p.o. b.i.d. 17. Questran 4 grams p.o. b.i.d. 18. Vitamin D3, ( ) mg p.o. daily. 19. Omnicef 300 mg p.o. q.12. 20. Tessalon Perles 200 mg p.o. t.i.d. 21. Ventolin HFA 2 puffs q.i.d. p.r.n. Allergy list is long including SULFA, WELLBUTRIN, EGG DERIVED, GLUTEN, INTERFERON BETA from AVONEX, LAMICTAL, MILK, DAYPRO, PENICILLIN, SOY, BEEF PRODUCTS, CORN, PEANUTS, PORK, TOMATO, APPLE, AZITHROMYCIN, BANANA, DOXYCYCLINE, LATEX, ALBUMIN, CYMBALTA, WHEAT, ADHESIVE, MASTISOL, STERI-STRIPS, GRIMES'S YEAST, METAL. On examination, temperature 97.9, pulse 110, respirations 20, blood pressure 104/41, pulse ox 96% on room air. GENERAL APPEARANCE: Well built, BMI of 33.2, lying in bed, tired appearing. EYES: Pupils equal. Conjunctivae pale. HENT: Oral cavity normal. NECK: JVD not raised. Mass not palpable. RESPIRATORY: Effort increased. LUNGS: Decreased breath sounds, some expiratory wheezing. CARDIOVASCULAR: First and second sounds normal. No edema. ABDOMEN: Soft, nontender. Liver and spleen not palpable. LYMPHATIC: No lymph node palpable in neck or axillae. PSYCHIATRY: Alert and oriented x3. Mood and affect anxious appearing. NEUROLOGICAL: Pupils equal. Cranial nerves grossly intact. Power and sensation grossly intact. INVESTIGATIONS: Blood work pending. Chest x-ray pending. ASSESSMENT: 1. Severe persistent asthma with acute exacerbation having failed outpatient treatment. 2. Chronic fibromyalgia. 3. Gastroesophageal reflux disease. 4. Autoimmune liver disorder. 5. Primary osteoarthritis multiple joints. 6. Multiple sclerosis. 7. Chronic sinus infection, ( ) . 8. Depression and anxiety, not otherwise specified. PLAN: Patient's home medications are resumed. Patient is put on nebulized bronchodilator, IV Solu-Medrol. Consultation with Dr. Dougherty is done. Care was discussed with the patient. Patient also told to do salt water gargle and rather warm liquids like tea as opposed to cold liquids. Will also add Claritin D and add baseline blood work.
--- NOTE | 2016-06-10 07:27 | XR ---
EXAMINATION TYPE: XR chest 2V DATE OF EXAM: 06/10/2016 7:19 AM COMPARISON: 03/07/2016 INDICATION: Asthma cough history of MS TECHNIQUE: Single frontal view of the chest is obtained. FINDINGS: The heart size is normal. The pulmonary vasculature is normal. The lungs are clear. A port is present on the right with the tip in the proximal right atrium. There is elevation of the r ight diaphragm. IMPRESSION: 1. No acute pulmonary process.
[2016-06-10 07:31] LABS: Glucose,Whole Blood 170 mg/dL (75-99)
[2016-06-10] MEDS ORDERED: SYMBICORT 160-4.5 MCG INHALER INHALATION SCH (08:00)
[2016-06-10] MEDS: INSULIN LISPRO (humaLOG) 300 UNIT/3 ML VIAL SQ SCH ×4 (08:15→21:31)
[2016-06-10] MEDS: PROMETHAZ-COD 6.25-10 MG/5 ML 5 ML CUP PO PRN ×3 (08:39→22:58)
[2016-06-10] MEDS: BENZONATATE 100 MG CAP PO SCH ×3 (08:40→21:36)
[2016-06-10] MEDS: LORATADINE-PSEUDOEPH 5-120 MG 1 EACH TAB.ER.12H PO SCH ×2 (08:40→21:35)
[2016-06-10] MEDS: CEFDINIR 300 MG CAP PO SCH ×2 (08:40→21:35)
[2016-06-10] MEDS: PRAMIPEXOLE 1 MG TAB PO SCH ×2 (08:40→21:36)
[2016-06-10] MEDS: CHOLESTYRAMINE (WITH SUGAR) 4 GM PACKET PO SCH ×2 (08:40→21:35)
[2016-06-10] MEDS: PANTOPRAZOLE 40 MG TABLET PO SCH (08:41)
[2016-06-10] MEDS: CHOLECALCIFEROL 1,000 UNIT TAB PO SCH (08:41)
[2016-06-10] MEDS: clonazePAM 0.5 MG TAB PO SCH ×3 (08:41→21:36)
[2016-06-10] MEDS: IPRATROPIUM 0.5 MG/2.5 ML NEBU INHALATION SCH ×4 (08:45→21:16)
[2016-06-10] MEDS: BUDESONIDE 1 MG/2 ML NEBU INHALATION SCH ×2 (08:45→21:17)
[2016-06-10] MEDS: LEVALBUTEROL NEB (CONC) 1.25 MG/0.5 ML AMP INHALATION SCH ×4 (08:45→21:17)
[2016-06-10] MEDS: FORMOTEROL FUMARATE 20 MCG/2 ML NEBU INHALATION SCH ×2 (08:45→21:17)
[2016-06-10] MEDS ORDERED: HYDROCORTISONE 10 MG TAB PO SCH ×2 (09:00→12:30)
[2016-06-10] MEDS: TECFIDERA 240 MG PO SCH ×3 (09:44→17:31)
[2016-06-10] MEDS: hydrOXYzine PAMOATE 25 MG CAP PO PRN (11:22)
[2016-06-10] MEDS: HYDROmorphone 2 MG TAB PO PRN ×3 (11:25→22:58)
[2016-06-10 11:47] LABS: Glucose,Whole Blood 185 mg/dL (75-99)
[2016-06-10 13:21] LABS: Hemoglobin A1C 5.4 % (4.2-6.1)
--- NOTE | 2016-06-10 13:41 | P.CNPUL ---
History of Present Illness Consult date: 06/10/16 Requesting physician: Manuel Finch Reason for consult: dyspnea Chief complaint: Shortness of breath, cough, congestion History of present illness: This is a very pleasant 51-year-old female patient who follows with Dr. Dougherty as her primary care physician. She has a history of chronic moderate persistent asthma, multiple sclerosis, obstructive sleep apnea, avascular necrosis of the left hip status post left hip arthroplasty, SVT, hypothyroidism , anemia, adrenal insufficiency, autoimmune hepatitis, POTS. She presented to our office yesterday with complaints of increasing shortness of breath, cough and congestion. She had recently traveled to [place] and began getting short of breath while there. She was quite bronchospastic and wheezy and was referred here to the emergency room for the same. She was admitted for an asthma exacerbation. Her chest x-ray shows no acute pulmonary process. She is seen today in consultation on the regular medical floor. She is awake and alert in no acute distress. She is still dyspneic with minimal exertion. She has a dry nonproductive cough. No chills or night sweats. She remains afebrile. She is maintaining good O2 saturations in the upper 90s on room air. Review of Systems 14 point review of system was conducted. All negative other than as mentioned in HPI. Past Medical History Past Medical History: Asthma, COPD, Fibromyalgia, GERD/Reflux, Liver Disease, Musculoskeletal Disorder, Neurologic Disorder, Osteoarthritis (OA), Supraventricular Tachycardia (SVT), Thyroid Disorder Additional Past Medical History / Comment(s): Recent sinus infection, multiple sclerosis, optic neuritis,chronic anemia, migraines, adrenal insufficiency, auto immune hepatitis, uses c-pap machine, avascular necrosis bilateral hips with sx, vertigo History of Any Multi-Drug Resistant Organisms: None Reported Past Surgical History: Bowel Resection, Cholecystectomy, Heart Catheterization, Hysterectomy, Joint Replacement, Orthopedic Surgery, Tonsillectomy Additional Past Surgical History / Comment(s): sinus surgery,blepharoplasty jalyeen eyes,POWER PORT -IMPLANTABLE PORT-under right clavicle-bowel twisted and had to have resection-8 inches removed, rt knee replacement , 8 INCH BOWEL REMOVED, jayleen total hip replacement.03-07-16 BRONCHOSCOPY, colonoscopies. Past Anesthesia/Blood Transfusion Reactions: Blood Transfusion Reaction Additional Past Anesthesia/Blood Transfusion Reaction / Comment(s): HX OF BLOOD TRANSFUSION : HAS CARD STATING K ANTIBODY AFTER RECEIVING A TRANSFUSION Past Psychological History: Anxiety, Depression Additional Psychological History / Comment(s): Pt resides with her spouse. She has a cane/walker that she uses prn. She has a knee brace which currently doesn 't fit due to wt gain with steroid use. Smoking Status: Never smoker Past Alcohol Use History: Rare Past Drug Use History: None Reported - Past Family History Mother Family Medical History: Hypertension Father Family Medical History: COPD, Hypertension Additional Family Medical History / Comment(s): Father at the age of 69 yrs. Brother(s) Additional Family Medical History / Comment(s): Brother-MS X2 Medications and Allergies Home Medications Medication Instructions Recorded Confirmed Type Albuterol Inhaler [Ventolin Hfa 2 puff INHALATION RT-QID PRN 07/14/13 06/09/16 History Inhaler] Montelukast [Singulair] 10 mg PO HS 07/14/13 06/09/16 History HYDROmorphone [Dilaudid] 4 mg PO Q4-6H PRN 08/03/13 06/09/16 History Cholecalciferol [Vitamin D3] 12,000 unit PO DAILY 07/22/14 06/09/16 History Meclizine [Antivert] 12.5 mg PO Q8HR PRN 08/28/14 06/09/16 History clonazePAM [KlonoPIN] 0.5 mg PO TID 01/25/15 06/09/16 History Cholestyramine (with Sugar) 4 gm PO BID 07/25/15 06/09/16 History [Questran Packet] Dimethyl Fumarate [Tecfidera] 240 mg PO BID 11/19/15 06/09/16 History Fluticasone/Vilanterol [Breo 1 puff INHALATION RT-DAILY 11/19/15 06/09/16 History Ellipta 200-25 Mcg INH] Hydrocortisone [Cortef] 5 mg PO W/LUNCH 11/19/15 06/09/16 History Hydrocortisone [Cortef] 15 mg PO DAILY 11/19/15 06/09/16 History hydrOXYzine PAMOATE [Vistaril] 100 mg PO DAILY PRN 11/19/15 06/09/16 History Pilocarpine [Salagen] 5 mg PO QID PRN 12/11/15 06/09/16 History Vortioxetine Hydrobromide 20 mg PO QAM 12/11/15 06/09/16 History [Trintellix] Xeomin Inj 1 injection IM Q90D 12/11/15 06/09/16 History Benzonatate [Tessalon Perles] 200 mg PO TID 03/06/16 06/09/16 History Pramipexole Di-HCl [Mirapex] 1 mg PO BID 03/06/16 06/09/16 History Promethaz-Cod 6.25-10 mg/5 ml 5 ml PO Q12H PRN 03/06/16 06/09/16 History [Phenergan with Codeine] Esomeprazole Magnesium [NexIUM] 40 mg PO DAILY 03/07/16 06/09/16 History Mometasone Inhalr 220 Mcg/Puff 2 puff INHALATION RT-HS 03/07/16 06/09/16 History [Asmanex] Cefdinir [Omnicef] 300 mg PO Q12HR 06/02/16 06/09/16 History traZODone HCL 100 mg PO HS 06/02/16 06/09/16 History Allergies Allergy/AdvReac Type Severity Reaction Status Date / Time Sulfa (Sulfonamide Allergy Severe Anaphylaxis Verified 06/09/16 14:21 Antibiotics) bupropion HCl AdvReac Severe Rash/Hives Verified 06/09/16 14:21 [From Wellbutrin] Egg Derived AdvReac Severe bloating, Verified 06/09/16 14:21 abd pain, nasal congestion gluten AdvReac Severe Nausea & Verified 06/09/16 14:21 Vomiting & Diarrhea interferon beta AdvReac Severe Rash/Hives Verified 06/09/16 14:21 interferon beta-1a AdvReac Severe Rash/Hives Verified 06/09/16 14:21 [From Avonex] lamotrigine [From Lamictal] AdvReac Severe Rash/Hives Verified 06/09/16 14:21 milk AdvReac Severe Nausea & Verified 06/09/16 14:21 Vomiting oxaprozin [From Daypro] AdvReac Severe Rash/Hives Verified 06/09/16 14:21 Penicillins AdvReac Severe Rash/Hives Verified 06/09/16 14:21 soy AdvReac Severe Nausea & Verified 06/09/16 14:21 Vomiting & Diarrhea Beef Containing Products AdvReac Mild none Verified 06/09/16 14:21 corn [[place]] AdvReac Mild none Verified 06/09/16 14:21 peanut AdvReac Mild none Verified 06/09/16 14:21 Pork/Porcine Containing AdvReac Mild none Verified 06/09/16 14:21 Products tomato [Tomato] AdvReac Mild none Verified 06/09/16 14:21 apple AdvReac Unknown none Verified 06/09/16 14:21 azithromycin AdvReac Unknown Rash/Hives, Verified 06/09/16 14:21 RED SKING, ITCHING banana AdvReac Unknown none Verified 06/09/16 14:21 doxycycline AdvReac Unknown Rash/Hives Verified 06/09/16 14:21 latex AdvReac Unknown Blisters Verified 06/09/16 14:21 albumin human AdvReac Rash/Hives Verified 06/09/16 14:21 [From Rebif (with albumin)] dicyclomine [From Bentyl] AdvReac Rash/Hives Verified 06/09/16 14:21 duloxetine [From Cymbalta] AdvReac Rash/Hives Verified 06/09/16 14:21 wheat AdvReac Nausea & Verified 06/09/16 14:21 Vomiting & Diarrhea ADHESIVE AdvReac Severe BLISTERS Uncoded 06/09/16 14:21 TO SKIN MASTISOL AdvReac Severe BLISTERS Uncoded 06/09/16 14:21 TO SKIN STERISTRIPS AdvReac Severe BLISTERS Uncoded 06/09/16 14:21 TO SKIN obrien's yeast AdvReac Mild none Uncoded 06/09/16 14:06 METAL AdvReac Unknown RASH AND Uncoded 06/09/16 14:21 BLISTERS TO SKIN Physical Exam Vitals: Vital Signs Temp Pulse Pulse Resp BP Pulse Ox 06/10/16 12:25 112 H 18 06/10/16 12:14 110 H 18 06/10/16 09:11 112 H 06/10/16 08:58 110 H 06/10/16 08:57 110 H 06/10/16 08:47 114 H 06/10/16 07:00 97.1 F L 91 16 122/84 96 06/09/16 23:38 90 06/09/16 23:32 108 H 06/09/16 23:00 97.1 F L 94 20 110/67 94 L 06/09/16 20:53 110 H 06/09/16 19:43 112 H 06/09/16 19:42 104 H 06/09/16 19:32 110 H 06/09/16 17:50 110 H 06/09/16 17:40 110 H 06/09/16 15:00 97.9 F 92 20 104/41 96 Intake and Output 06/09/16 06/10/16 06/10/16 22:59 06:59 14:59 Intake Total 300 100 Balance 300 100 Intake: Oral 300 100 Other: # Voids 2 Results - Laboratory Findings CBC and BMP: 06/09/16 22:35 06/09/16 22:35 Abnormal lab findings: Abnormal Labs 06/09/16 06/09/16 06/09/16 17:38 21:04 22:35 Lymphocytes # 0.4 L Carbon Dioxide Glucose POC Glucose (mg/dL) 105 H 151 H AST ALT Alkaline Phosphatase 06/09/16 06/10/16 06/10/16 22:35 07:25 11:45 Lymphocytes # Carbon Dioxide 21 L Glucose 181 H POC Glucose (mg/dL) 170 H 185 H AST 524 H ALT 485 H Alkaline Phosphatase 161 H - Diagnostic Findings Chest x-ray: image reviewed Assessment and Plan Plan: Impression: #1 Acute exacerbation of moderate persistent chronic bronchial asthma. #2 Obstructive sleep apnea, moderate in severity with an AHI of 17. #3 Multiple sclerosis with a history of optic neuritis. #4 History of autoimmune hepatitis. #5 Adrenal insufficiency. #6 Chronic anemia. #7 Hypothyroidism. #8 Hyperlipidemia. #9 History of avascular necrosis of the left hip, status post total left hip arthroplasty. Plan: The patient was seen and evaluated by Dr. Dougherty. We'll continue with her current medications including Xopenex inhalations 3 times a day and when necessary, Singulair, empiric Antibiotics, Pulmicort inhalations twice a day, Tessalon Perles. We'll change her promethazine cough syrup to every 6 hours. Continue her Solu-Medrol. If she does not make significant improvement in the next 24 hours we'll probably plan on a bronchoscopy with BAL within 48 hours. We'll continue to follow. Time with Patient: Greater than 30
[2016-06-10] MEDS: SODIUM CHLORIDE 0.9% 1,000 ML IV SCH (17:33)
[2016-06-10 17:38] LABS: Glucose,Whole Blood 117 mg/dL (75-99)
[2016-06-10 21:03] LABS: Glucose,Whole Blood 124 mg/dL (75-99)
[2016-06-10] MEDS: MONTELUKAST 10 MG TAB PO SCH (21:36)
[2016-06-10] MEDS: traZODone HCL 100 MG TAB PO SCH (21:36)
[2016-06-11] MEDS: methylPREDNISolone SOD SUCCI 125 MG/2 ML VIAL IV SCH ×4 (05:35→23:04)
--- NOTE | 2016-06-11 07:07 | PN ---
DATE OF SERVICE: 06/10/2016 PRESENTING COMPLAINT: Short of breath, wheezing. INTERVAL HISTORY: This is a patient admitted with severe persistent asthma acute exacerbation having failed outpatient treatment, still has got a wheezing, cough, getting antibiotics. Did tolerate some diet. Has been out of bed. Though still is quite tired. Review of systems done for constitutional, cardiovascular, GI, pulmonary; relevant findings as above. Current medications are reviewed that include IV Solu-Medrol and nebulized bronchodilators. Patient is also on oral Omnicef. On examination, temperature 97.9, pulse 113, respiration 16, blood pressure 140/63, pulse ox 93% on room air. GENERAL APPEARANCE: Sitting up, tired appearing. EYES: Pupils equal. Conjunctivae normal. NECK: JVD not raised. Mass not palpable. RESPIRATORY: Effort increased. LUNGS: Decreased breath sounds, prolonged expiration and wheezing. CARDIOVASCULAR: First and second sounds normal. No edema. ABDOMEN: Soft, nontender. Liver and spleen not palpable. PSYCHIATRY: Alert and oriented x3. Mood and affect anxious appearing. INVESTIGATIONS: Accu-Cheks are noted. AST is 524, ALT is 485. ASSESSMENT: 1. Severe persistent asthma with acute exacerbation, having outpatient treatment, slow to respond. 2. Chronic fibromyalgia. 3. Gastroesophageal reflux disease. 4. Autoimmune liver disease disorder. 5. Primary osteoarthritis of multiple joints. 6. Multiple sclerosis. 7. Chronic sinus infection, probably viral. 8. Depression and anxiety, not otherwise specified. PLAN: Continue current medication and treatment plan. Supportive care. Will follow. Patient was seen by Dr. Dougherty from pulmonary. He is contemplating a bronchoscopy if patient does not respond in the next 24 hours.
[2016-06-11] MEDS: LEVALBUTEROL NEB (CONC) 1.25 MG/0.5 ML AMP INHALATION SCH ×4 (07:10→20:56)
[2016-06-11] MEDS: BUDESONIDE 1 MG/2 ML NEBU INHALATION SCH ×2 (07:10→20:56)
[2016-06-11] MEDS: FORMOTEROL FUMARATE 20 MCG/2 ML NEBU INHALATION SCH ×2 (07:10→20:56)
[2016-06-11] MEDS: IPRATROPIUM 0.5 MG/2.5 ML NEBU INHALATION SCH ×4 (07:10→20:56)
[2016-06-11 07:26] LABS: Glucose,Whole Blood 134 mg/dL (75-99)
[2016-06-11] MEDS: PROMETHAZ-COD 6.25-10 MG/5 ML 5 ML CUP PO PRN ×3 (08:05→23:02)
[2016-06-11] MEDS: clonazePAM 0.5 MG TAB PO SCH ×3 (08:06→21:41)
[2016-06-11] MEDS: CEFDINIR 300 MG CAP PO SCH ×2 (08:08→21:39)
[2016-06-11] MEDS: BENZONATATE 100 MG CAP PO SCH ×3 (08:08→21:41)
[2016-06-11] MEDS: PANTOPRAZOLE 40 MG TABLET PO SCH (08:08)
[2016-06-11] MEDS: CHOLESTYRAMINE (WITH SUGAR) 4 GM PACKET PO SCH ×2 (08:08→21:39)
[2016-06-11] MEDS: CHOLECALCIFEROL 1,000 UNIT TAB PO SCH (08:08)
[2016-06-11] MEDS: TECFIDERA 240 MG PO SCH ×2 (08:09→17:35)
[2016-06-11] MEDS: PRAMIPEXOLE 1 MG TAB PO SCH ×2 (08:09→21:40)
[2016-06-11] MEDS: LORATADINE-PSEUDOEPH 5-120 MG 1 EACH TAB.ER.12H PO SCH ×2 (08:09→21:40)
[2016-06-11] MEDS: INSULIN LISPRO (humaLOG) 300 UNIT/3 ML VIAL SQ SCH ×4 (08:10→21:40)
[2016-06-11] MEDS: TRINTELLIX 20 MG TABLET PO SCH ×2 (10:00→12:52)
[2016-06-11] MEDS: hydrOXYzine PAMOATE 25 MG CAP PO PRN (10:07)
[2016-06-11] MEDS: HYDROmorphone 2 MG TAB PO PRN ×4 (10:08→23:02)
[2016-06-11 11:49] LABS: Glucose,Whole Blood 114 mg/dL (75-99)
--- NOTE | 2016-06-11 15:12 | P.PN ---
Subjective Progress note dated 06/11/2016 This is a 51-year-old female well-known to our service. She has a history of multiple medical problems including severe chronic bronchial asthma sleep apnea syndrome optic neuritis with multiple sclerosis autoimmune hepatitis adrenal insufficiency chronic anemia hypothyroidism hyperlipidemia and avascular necrosis of the left hip. The patient was seen by my partner yesterday in the office. She was admitted to the hospital. We will get her scheduled for bronchoscopy tomorrow. She likely can be discharged home on Thursday. She asked for an ENT consult. I don't believe he'll do a consult on this patient because his routine nonemergent consult but will try anyway. Dr. Matthew will go ahead and get her on the Andi scheduled for tomorrow probably at about 11:00 or so. Objective - Vital Signs Vital signs: Vital Signs Temp 96.9 F L 06/11/16 15:00 Pulse 104 H 06/11/16 15:00 Resp 16 06/11/16 15:00 BP 138/80 06/11/16 15:00 Pulse Ox 98 06/11/16 15:00 Intake & Output 06/10/16 06/11/16 06/11/16 18:59 06:59 18:59 Intake Total 200 Balance 200 Weight 99 kg Intake: Oral 200 Other: Voiding Method Toilet # Voids 1 2 4 - Exam No acute distress, oriented 3. HEENT examination is grossly unremarkable. Mucous membranes are moist. No oral lesions. She get a tse face. Neck supple. Full range of motion. No adenopathy or thyromegaly. Neck veins are flat. Cardiovascular examination reveals regular rhythm rate. S1-S2 normal. No S3- S4 or murmur. Lungs reveal coarse expiratory dysmotility rhonchi. Some expiratory wheezes. Breath sounds are equal but diminished. There is prolongation on forced maneuver. Abdomen soft bowel sounds are heard. Extremities are intact. No cyanosis clubbing or edema. Skin without lesion. Brief neurologic examination is nonfocal. - Labs CBC & Chem 7: 06/09/16 22:35 06/09/16 22:35 Labs: Abnormal Lab Results - Last 24 Hours (Table) 06/10/16 06/10/16 06/11/16 Range/Units :17 21:01 07:22 POC Glucose (mg/dL) 117 H 124 H 134 H (75-99) mg/dL 06/11/16 Range/Units 11:48 POC Glucose (mg/dL) 114 H (75-99) mg/dL Assessment and Plan (1) Adrenal insufficiency Status: Acute (2) Sleep apnea Status: Acute (3) Autoimmune hepatitis Status: Acute (4) Hypothyroidism Status: Acute (5) Hyperlipidemia Status: Acute (6) Anemia of chronic disease Status: Acute (7) Asthma exacerbation Status: Acute (8) Avascular necrosis of bone of left hip Status: Acute (9) Status post total hip replacement, left Status: Acute Plan: Plan dated 06/11/2016 The patient will be scheduled for bronchoscopy tomorrow. We'll try to get it done mid to late morning. We'll also ask her nose and throat to see her for her chronic sinus disease. She'll continue on her current medications. This include short acting beta agonist short acting muscarinic antagonist long- acting beta agonist inhaled corticosteroids and systemic corticosteroids on with oral antibiotics. She'll apply probably be discharged home on Thursday. Bronchoscopy on . Time with Patient: Less than 30
[2016-06-11 17:14] LABS: Glucose,Whole Blood 141 mg/dL (75-99)
[2016-06-11] MEDS: SODIUM CHLORIDE 0.9% 1,000 ML IV SCH (17:37)
--- NOTE | 2016-06-11 20:40 | CT ---
EXAMINATION TYPE: CT sinus wo con DATE OF EXAM: 06/11/2016 8:27 PM COMPARISON: 05/28/2016 HISTORY: continued congestion CT DLP: 584 mGycm Automated exposure control for dose reduction was used. FINDINGS: The orbital margins are intact. There is no sign of retro-orbital mass. There is normal aeration of t he paranasal sinuses. I see no bony destructive process. Maxilla is intact. There is normal aeration of the mastoid sinuses. IMPRESSION: NEGATIVE CT SCAN OF THE PARANASAL SINUSES. NO CHANGE COMPARED TO OLD EXAM.
[2016-06-11 21:02] LABS: Glucose,Whole Blood 129 mg/dL (75-99)
[2016-06-11] MEDS: MONTELUKAST 10 MG TAB PO SCH (21:40)
[2016-06-11] MEDS: traZODone HCL 100 MG TAB PO SCH (21:40)
[2016-06-12] MEDS: methylPREDNISolone SOD SUCCI 125 MG/2 ML VIAL IV SCH ×3 (05:32→18:26)
[2016-06-12] MEDS: HYDROmorphone 2 MG TAB PO PRN (06:34)
[2016-06-12] MEDS: PROMETHAZ-COD 6.25-10 MG/5 ML 5 ML CUP PO PRN ×2 (06:34→21:27)
[2016-06-12 07:41] LABS: Glucose,Whole Blood 126 mg/dL (75-99)
[2016-06-12] MEDS: IPRATROPIUM 0.5 MG/2.5 ML NEBU INHALATION SCH ×3 (07:55→16:27)
[2016-06-12] MEDS: LEVALBUTEROL NEB (CONC) 1.25 MG/0.5 ML AMP INHALATION SCH ×3 (07:55→16:27)
[2016-06-12] MEDS: FORMOTEROL FUMARATE 20 MCG/2 ML NEBU INHALATION SCH ×2 (07:55→19:50)
[2016-06-12] MEDS: BUDESONIDE 1 MG/2 ML NEBU INHALATION SCH ×2 (07:55→19:40)
[2016-06-12] MEDS: INSULIN LISPRO (humaLOG) 300 UNIT/3 ML VIAL SQ SCH ×4 (08:05→20:54)
[2016-06-12] MEDS: TECFIDERA 240 MG PO SCH ×3 (08:05→18:16)
[2016-06-12] MEDS: CHOLESTYRAMINE (WITH SUGAR) 4 GM PACKET PO SCH ×3 (08:06→21:27)
[2016-06-12] MEDS: TRINTELLIX 20 MG TABLET PO SCH (08:06)
[2016-06-12] MEDS: PRAMIPEXOLE 1 MG TAB PO SCH ×2 (08:07→21:27)
[2016-06-12] MEDS: BENZONATATE 100 MG CAP PO SCH ×3 (08:07→22:01)
[2016-06-12] MEDS: CEFDINIR 300 MG CAP PO SCH ×2 (08:07→21:26)
[2016-06-12] MEDS: clonazePAM 0.5 MG TAB PO SCH ×3 (08:08→22:02)
[2016-06-12] MEDS: LORATADINE-PSEUDOEPH 5-120 MG 1 EACH TAB.ER.12H PO SCH ×2 (08:08→21:27)
[2016-06-12] MEDS: CHOLECALCIFEROL 1,000 UNIT TAB PO SCH ×2 (08:08→13:59)
[2016-06-12] MEDS: PANTOPRAZOLE 40 MG TABLET PO SCH (08:08)
[2016-06-12 08:26] VITALS: RESP 16
--- NOTE | 2016-06-12 09:00 | PN ---
DATE OF SERVICE: 06/11/2016 PRESENTING COMPLAINT: Short of breath, wheezing. INTERVAL HISTORY: Patient admitted with severe persistent asthma acute exacerbation, having failed outpatient treatment, still wheezing quite a bit. Has got a cough. Pulmonary decided to proceed with a bronchoscopy lavage tomorrow which I think will be quite beneficial. Patient is tolerating a diet. Bowels are good. Review of systems done for constitutional, cardiovascular, GI, pulmonary; relevant findings as above. Current medications are reviewed that include IV Solu-Medrol, Omnicef. On examination, temperature 96.9, pulse 104, respirations 16, blood pressure 130/80, pulse ox 98% on room air. GENERAL APPEARANCE: Sitting up, comfortable. EYES: Pupils equal. Conjunctivae normal. NECK: JVD not raised. Mass not palpable. Respiratory effort normal. Lungs decreased breath sounds, expiratory wheezing, prolonged expiration. CARDIOVASCULAR: First and second sounds normal. No edema. ABDOMEN: Soft, nontender. Liver and spleen not palpable. PSYCHIATRY: Alert and oriented x3, mood and affect normal. INVESTIGATIONS: Accu-Cheks are noted. ASSESSMENT: 1. Severe persistent asthma with acute exacerbation, having failed outpatient treatment. 2. Chronic fibromyalgia. 3. Gastroesophageal reflux disease. 4. Autoimmune liver disease disorder. 5. Primary osteoarthritis of multiple joints. 6. Multiple sclerosis, stable. 7. Chronic sinus infection, probably viral. 8. Depression, anxiety not otherwise specified. PLAN: Patient is slow to respond. Continue with the current medication and treatment plan. Awaiting bronchoscopy.
[2016-06-12] MEDS ORDERED: GLYCOPYRROLATE 0.2 MG/ML 2 ML VIAL ONE (10:44)
[2016-06-12] MEDS ORDERED: MIDAZOLAM 2 MG/2 ML VIAL ONE (10:44)
[2016-06-12] MEDS ORDERED: PROPOFOL 10 MG/ML 20 ML VIAL IV ONE (10:44)
[2016-06-12] MEDS ORDERED: fentaNYL (PF) 50 MCG/ML 2 ML AMP ONE (10:44)
[2016-06-12] MEDS ORDERED: IV FLUID CONTINUATION 500 ML IV ONE (10:44)
[2016-06-12] MEDS ORDERED: KETAMINE 10 MG/ML 20 ML VIAL ONE (10:44)
--- NOTE | 2016-06-12 10:49 | P.PN ---
Subjective Progress note dated 06/11/2016 This is a 51-year-old female well-known to our service. She has a history of multiple medical problems including severe chronic bronchial asthma sleep apnea syndrome optic neuritis with multiple sclerosis autoimmune hepatitis adrenal insufficiency chronic anemia hypothyroidism hyperlipidemia and avascular necrosis of the left hip. The patient was seen by my partner yesterday in the office. She was admitted to the hospital. We will get her scheduled for bronchoscopy tomorrow. She likely can be discharged home on Thursday. She asked for an ENT consult. I don't believe he'll do a consult on this patient because his routine nonemergent consult but will try anyway. Dr. Matthew will go ahead and get her on the Andi scheduled for tomorrow probably at about 11:00 or so. Progress note dated 06/12/2016 51-year-old female with history of severe chronic bronchial asthma as well as sleep apnea multiple sclerosis optic neuritis autoimmune hepatitis adrenal insufficiency chronic anemia hypothyroidism hyperlipidemia and avascular necrosis of the left hip. She is going to have a bronchoscopy today. This will help with removal of secretions. The CAT scan of her sinuses were negative. We did ask for ENT consultation. Anyway, the patient is doing about the same. We'll hoping that this bronchoscopy helps her the hospital more quickly. Objective - Vital Signs Vital signs: Vital Signs Temp 96.9 F L 06/12/16 07:00 Pulse 96 06/12/16 08:20 Resp 16 06/12/16 07:00 BP 119/80 06/12/16 07:00 Pulse Ox 96 06/12/16 07:00 Intake & Output 06/11/16 06/12/16 06/12/16 18:59 06:59 18:59 Intake Total 300 Balance 300 Weight 99 kg Intake: Oral 300 Other: Voiding Method Toilet # Voids 4 1 - Exam No acute distress, oriented 3. HEENT examination is grossly unremarkable. Mucous membranes are moist. No oral lesions. She get a tse face. Neck supple. Full range of motion. No adenopathy or thyromegaly. Neck veins are flat. Cardiovascular examination reveals regular rhythm rate. S1-S2 normal. No S3- S4 or murmur. Lungs reveal coarse expiratory dysmotility rhonchi. Some expiratory wheezes. Breath sounds are equal but diminished. There is prolongation on forced maneuver. Abdomen soft bowel sounds are heard. Extremities are intact. No cyanosis clubbing or edema. Skin without lesion. Brief neurologic examination is nonfocal. - Labs CBC & Chem 7: 06/09/16 22:35 06/09/16 22:35 Labs: Abnormal Lab Results - Last 24 Hours (Table) 06/11/16 06/11/16 06/11/16 Range/Units 11:48 17:12 21:01 POC Glucose (mg/dL) 114 H 141 H 129 H (75-99) mg/dL 06/12/16 Range/Units 07:37 POC Glucose (mg/dL) 126 H (75-99) mg/dL Assessment and Plan (1) Adrenal insufficiency Status: Acute (2) Sleep apnea Status: Acute (3) Autoimmune hepatitis Status: Acute (4) Hypothyroidism Status: Acute (5) Hyperlipidemia Status: Acute (6) Anemia of chronic disease Status: Acute (7) Asthma exacerbation Status: Acute (8) Avascular necrosis of bone of left hip Status: Acute (9) Status post total hip replacement, left Status: Acute Plan: Plan dated 06/11/2016 The patient will be scheduled for bronchoscopy tomorrow. We'll try to get it done mid to late morning. We'll also ask her nose and throat to see her for her chronic sinus disease. She'll continue on her current medications. This include short acting beta agonist short acting muscarinic antagonist long- acting beta agonist inhaled corticosteroids and systemic corticosteroids on with oral antibiotics. She'll apply probably be discharged home on Thursday. Bronchoscopy on . Plan dated 06/12/2016 The patient will have a bronch today. We will continue to follow closely. Hopeful discharge on Thursday. Await ENT input. CAT scan of the sinuses was dictated as being normal. Time with Patient: Less than 30
[2016-06-12] MEDS ORDERED: LIDOCAINE 2% INJ 20 MG/ML INTRATRACH ONE (10:59)
[2016-06-12 11:39] LABS: Glucose,Whole Blood 125 mg/dL (75-99)
--- NOTE | 2016-06-12 16:39 | P.GSCN ---
History of Present Illness Consult date: 06/12/16 Reason for Consult: Sinus problems Requesting physician: Manuel Finch History of present illness: This patient is a 51-year-old white female who has had many year history of sinonasal symptoms. Over the last 3-1/2 months she's been worse. She complains of postnasal drainage facial pressure drainage etc. she does have some watery eyes and sneezing at times. She underwent ALLERGY testing the past and I do not have those results available to me she's had previous sinus surgery by Dr. Audie Catherine and by Dr. Kiser. She is here today for evaluation. I did review the results of the patient's CAT scan demonstrating no signs of any chronic infectious issues. In the past she has gone through ALLERGY immunotherapy testing Xolair etc. with no improvement long-term. Review of Systems All 14 review of systems performed see H&P Past Medical History Past Medical History: Asthma, COPD, Fibromyalgia, GERD/Reflux, Liver Disease, Musculoskeletal Disorder, Neurologic Disorder, Osteoarthritis (OA), Supraventricular Tachycardia (SVT), Thyroid Disorder Additional Past Medical History / Comment(s): Recent sinus infection, multiple sclerosis, optic neuritis,chronic anemia, migraines, adrenal insufficiency, auto immune hepatitis, uses c-pap machine, avascular necrosis bilateral hips with sx, vertigo History of Any Multi-Drug Resistant Organisms: None Reported Past Surgical History: Bowel Resection, Cholecystectomy, Heart Catheterization, Hysterectomy, Joint Replacement, Orthopedic Surgery, Tonsillectomy Additional Past Surgical History / Comment(s): sinus surgery,blepharoplasty jayleen eyes,POWER PORT -IMPLANTABLE PORT-under right clavicle-bowel twisted and had to have resection-8 inches removed, rt knee replacement , 8 INCH BOWEL REMOVED, jayleen total hip replacement.03-07-16 BRONCHOSCOPY, colonoscopies. Past Anesthesia/Blood Transfusion Reactions: Blood Transfusion Reaction Additional Past Anesthesia/Blood Transfusion Reaction / Comm: HX OF BLOOD TRANSFUSION : HAS CARD STATING K ANTIBODY AFTER RECEIVING A TRANSFUSION Past Psychological History: Anxiety, Depression Additional Psychological History / Comment(s): Pt resides with her spouse. She has a cane/walker that she uses prn. She has a knee brace which currently doesn 't fit due to wt gain with steroid use. Smoking Status: Never smoker Past Alcohol Use History: Rare Past Drug Use History: None Reported - Past Family History Mother Family Medical History: Hypertension Father Family Medical History: COPD, Hypertension Additional Family Medical History / Comment(s): Father at the age of 69 yrs. Brother(s) Additional Family Medical History / Comment(s): Brother-MT X2 Medications and Allergies Home Medications Medication Instructions Recorded Confirmed Type Albuterol Inhaler [Ventolin Hfa 2 puff INHALATION RT-QID PRN 07/14/13 06/09/16 History Inhaler] Montelukast [Singulair] 10 mg PO HS 07/14/13 06/09/16 History HYDROmorphone [Dilaudid] 4 mg PO Q4-6H PRN 08/03/13 06/09/16 History Cholecalciferol [Vitamin D3] 12,000 unit PO DAILY 07/22/14 06/09/16 History Meclizine [Antivert] 12.5 mg PO Q8HR PRN 08/28/14 06/09/16 History clonazePAM [KlonoPIN] 0.5 mg PO TID 01/25/15 06/09/16 History Cholestyramine (with Sugar) 4 gm PO BID 07/25/15 06/09/16 History [Questran Packet] Dimethyl Fumarate [Tecfidera] 240 mg PO BID 11/19/15 06/09/16 History Fluticasone/Vilanterol [Breo 1 puff INHALATION RT-DAILY 11/19/15 06/09/16 History Ellipta 200-25 Mcg INH] Hydrocortisone [Cortef] 5 mg PO W/LUNCH 11/19/15 06/09/16 History Hydrocortisone [Cortef] 15 mg PO DAILY 11/19/15 06/09/16 History hydrOXYzine PAMOATE [Vistaril] 100 mg PO DAILY PRN 11/19/15 06/09/16 History Pilocarpine [Salagen] 5 mg PO QID PRN 12/11/15 06/09/16 History Vortioxetine Hydrobromide 20 mg PO QAM 12/11/15 06/09/16 History [Trintellix] Xeomin Inj 1 injection IM Q90D 12/11/15 06/09/16 History Benzonatate [Tessalon Perles] 200 mg PO TID 03/06/16 06/09/16 History Pramipexole Di-HCl [Mirapex] 1 mg PO BID 03/06/16 06/09/16 History Promethaz-Cod 6.25-10 mg/5 ml 5 ml PO Q12H PRN 03/06/16 06/09/16 History [Phenergan with Codeine] Esomeprazole Magnesium [NexIUM] 40 mg PO DAILY 03/07/16 06/09/16 History Mometasone Inhalr 220 Mcg/Puff 2 puff INHALATION RT-HS 03/07/16 06/09/16 History [Asmanex] Cefdinir [Omnicef] 300 mg PO Q12HR 06/02/16 06/09/16 History traZODone HCL 100 mg PO HS 06/02/16 06/09/16 History Allergies Allergy/AdvReac Type Severity Reaction Status Date / Time Sulfa (Sulfonamide Allergy Severe Anaphylaxis Verified 06/09/16 14:21 Antibiotics) bupropion HCl AdvReac Severe Rash/Hives Verified 06/09/16 14:21 [From Wellbutrin] gluten AdvReac Severe Nausea & Verified 06/09/16 14:21 Vomiting & Diarrhea interferon beta AdvReac Severe Rash/Hives Verified 06/09/16 14:21 interferon beta-1a AdvReac Severe Rash/Hives Verified 06/09/16 14:21 [From Avonex] lamotrigine [From Lamictal] AdvReac Severe Rash/Hives Verified 06/09/16 14:21 milk AdvReac Severe Nausea & Verified 06/09/16 14:21 Vomiting oxaprozin [From Daypro] AdvReac Severe Rash/Hives Verified 06/09/16 14:21 Penicillins AdvReac Severe Rash/Hives Verified 06/09/16 14:21 soy AdvReac Severe Nausea & Verified 06/09/16 14:21 Vomiting & Diarrhea azithromycin AdvReac Unknown Rash/Hives, Verified 06/09/16 14:21 RED SKING, ITCHING doxycycline AdvReac Unknown Rash/Hives Verified 06/09/16 14:21 latex AdvReac Unknown Blisters Verified 06/09/16 14:21 albumin human AdvReac Rash/Hives Verified 06/09/16 14:21 [From Rebif (with albumin)] dicyclomine [From Bentyl] AdvReac Rash/Hives Verified 06/09/16 14:21 duloxetine [From Cymbalta] AdvReac Rash/Hives Verified 06/09/16 14:21 wheat AdvReac Nausea & Verified 06/09/16 14:21 Vomiting & Diarrhea ADHESIVE AdvReac Severe BLISTERS Uncoded 06/09/16 14:21 TO SKIN MASTISOL AdvReac Severe BLISTERS Uncoded 06/09/16 14:21 TO SKIN STERISTRIPS AdvReac Severe BLISTERS Uncoded 06/09/16 14:21 TO SKIN METAL AdvReac Unknown RASH AND Uncoded 06/09/16 14:21 BLISTERS TO SKIN Surgical - Exam Osteopathic Statement: *. No significant issues noted on an osteopathic structural exam other than those noted in the History and Physical/Consult. Vital Signs Temp Pulse Resp BP Pulse Ox 97.9 F 92 20 104/41 96 06/09/16 15:00 06/09/16 15:00 06/09/16 15:00 06/09/16 15:00 06/09/16 15:00 - General Head is normocephalic the face is symmetric there's no abnormal movements is no tenderness to the sinuses are mastoids ears are well-formed canals clear nose shows generalized edema mouth and throat no oral lesions are noted neck is unremarkable - Eyes PERRL - ENT normal pinna, normal nares - Neck no masses Results - Labs 06/09/16 22:35 06/09/16 22:35 Abnormal Lab Results - Last 24 Hours (Table) 06/11/16 06/11/16 06/12/16 Range/Units 17:12 21:01 07:37 POC Glucose (mg/dL) 141 H 129 H 126 H (75-99) mg/dL 06/12/16 Range/Units 11:23 POC Glucose (mg/dL) 125 H (75-99) mg/dL Assessment and Plan (1) Acute allergic rhinitis due to pollen Narrative/Plan: After a long discussion, we've decided to perform specialty food testing. She will come to the office after discharge for a food ALLERGY assessment. Her sinus CAT scan does not reveal any chronic sinus infections, her symptoms are primarily ALLERGIC in etiology. Wider control of her ALLERGIES is recommended. We will be making further recommendations after food ALLERGY testing is available. In the meantime, ALLERGY avoidance, medical therapy and immunotherapy were discussed. Food ALLERGY testing is pending. She is to return to the office for Dr. Kiser for an evaluation of her continued symptoms. Status: Acute (2) Allergic rhinitis due to mold Status: Acute (3) Allergy, food Status: Acute
[2016-06-12 16:48] LABS: Glucose,Whole Blood 120 mg/dL (75-99)
[2016-06-12] MEDS: SODIUM CHLORIDE 0.9% 1,000 ML IV SCH (17:18)
[2016-06-12] MEDS: IPRATROPIUM 0.5 MG/2.5 ML NEBU INHALATION PRN (19:40)
[2016-06-12] MEDS: IPRATROPIUM-ALBUTEROL 3 ML NEB INHALATION SCH (19:51)
[2016-06-12 20:03] LABS: RBC, Body Fluid 1140 /uL
[2016-06-12 21:12] LABS: Glucose,Whole Blood 129 mg/dL (75-99)
[2016-06-12] MEDS: MONTELUKAST 10 MG TAB PO SCH (21:27)
[2016-06-12] MEDS: traZODone HCL 100 MG TAB PO SCH (21:27)
[2016-06-13] MEDS: PROMETHAZ-COD 6.25-10 MG/5 ML 5 ML CUP PO PRN (06:15)
[2016-06-13 07:07] LABS: Glucose,Whole Blood 102 mg/dL (75-99)
[2016-06-13 07:54] VITALS: BP 121/88; TEMP 96.7
[2016-06-13] MEDS: BUDESONIDE 1 MG/2 ML NEBU INHALATION SCH (08:21)
[2016-06-13] MEDS: FORMOTEROL FUMARATE 20 MCG/2 ML NEBU INHALATION SCH (08:21)
[2016-06-13] MEDS: IPRATROPIUM-ALBUTEROL 3 ML NEB INHALATION SCH ×2 (08:21→13:50)
[2016-06-13 08:34] VITALS: PULSE 84
[2016-06-13] MEDS: TRINTELLIX 20 MG TABLET PO SCH (08:41)
[2016-06-13] MEDS: INSULIN LISPRO (humaLOG) 300 UNIT/3 ML VIAL SQ SCH ×2 (08:41→12:19)
[2016-06-13] MEDS: CHOLECALCIFEROL 1,000 UNIT TAB PO SCH (08:41)
[2016-06-13] MEDS: LORATADINE-PSEUDOEPH 5-120 MG 1 EACH TAB.ER.12H PO SCH (08:43)
[2016-06-13] MEDS: BENZONATATE 100 MG CAP PO SCH (08:43)
[2016-06-13] MEDS: PRAMIPEXOLE 1 MG TAB PO SCH (08:43)
[2016-06-13] MEDS: CHOLESTYRAMINE (WITH SUGAR) 4 GM PACKET PO SCH (08:44)
[2016-06-13] MEDS: PANTOPRAZOLE 40 MG TABLET PO SCH (08:44)
[2016-06-13] MEDS: TECFIDERA 240 MG PO SCH (08:46)
[2016-06-13] MEDS: clonazePAM 0.5 MG TAB PO SCH (08:56)
[2016-06-13] MEDS ORDERED: predniSONE 20 MG TAB PO SCH (09:00)
--- NOTE | 2016-06-13 10:09 | PN ---
DATE OF SERVICE: 06/12/2016 PRESENTING COMPLAINT: Short of breath, wheezing. INTERVAL HISTORY: This is a patient with severe persistent asthma, acute exacerbation, having failed outpatient treatment, underwent a bronchoscopy with lavage today. Feeling much improved. A lot of thick secretions were taken off. Patient is feeling remarkably better. Sitting up and smiling. Review of systems done for constitutional, cardiovascular, GI, pulmonary; relevant findings as above. Current medications are reviewed and include IV Solu-Medrol, nebulized bronchodilators. On examination, temperature 97.5, pulse 94, respiration 16, blood pressure 137/77, pulse ox 98% on room air. GENERAL APPEARANCE: Sitting up, comfortable. EYES: Pupils equal normal. NECK: JVD not raised. Mass not palpable. RESPIRATORY: Effort normal. LUNGS: Much improved air entry, wheezing greatly improved. CARDIOVASCULAR: First and second sounds. No edema. ABDOMEN: Soft, nontender. Liver and spleen not palpable. PSYCHIATRY: Alert and oriented x3. Mood and affect normal. INVESTIGATIONS: Accu-Cheks are noted. ASSESSMENT: 1. Severe persistent asthma with acute exacerbation having failed outpatient treatment, responded very well to bronchoscopy with lavage with thick secretions removed. 2. Chronic fibromyalgia. 3. Gastroesophageal reflux disease. 4. Autoimmune liver disease disorder. 5. Primary osteoarthritis in multiple joints. 6. Multiple sclerosis stable. 7. Chronic allergic rhinitis per Dr. Kuo. 8. Depression and anxiety, not otherwise specified. PLAN: Patient is doing much better. Will switch over to oral prednisone. Probably discharge the patient tomorrow.
[2016-06-13 10:13] LABS: Anion Gap 12 mmol/L; Blood Urea Nitrogen 30 mg/dL (7-17); Calcium 9.3 mg/dL (8.4-10.2); Carbon Dioxide 21 mmol/L (22-30); Chloride 107 mmol/L (98-107); Glucose 127 mg/dL (74-99); Non-African American GFR(MDRD) >60 (>60 ml/min/1.73 sqM); Potassium 4.3 mmol/L (3.5-5.1); Sodium 140 mmol/L (137-145)
--- NOTE | 2016-06-13 10:19 | P.PN ---
Subjective Progress note dated 06/11/2016 This is a 51-year-old female well-known to our service. She has a history of multiple medical problems including severe chronic bronchial asthma sleep apnea syndrome optic neuritis with multiple sclerosis autoimmune hepatitis adrenal insufficiency chronic anemia hypothyroidism hyperlipidemia and avascular necrosis of the left hip. The patient was seen by my partner yesterday in the office. She was admitted to the hospital. We will get her scheduled for bronchoscopy tomorrow. She likely can be discharged home on Thursday. She asked for an ENT consult. I don't believe he'll do a consult on this patient because his routine nonemergent consult but will try anyway. Dr. Matthew will go ahead and get her on the Andi scheduled for tomorrow probably at about 11:00 or so. Progress note dated 06/12/2016 51-year-old female with history of severe chronic bronchial asthma as well as sleep apnea multiple sclerosis optic neuritis autoimmune hepatitis adrenal insufficiency chronic anemia hypothyroidism hyperlipidemia and avascular necrosis of the left hip. She is going to have a bronchoscopy today. This will help with removal of secretions. The CAT scan of her sinuses were negative. We did ask for ENT consultation. Anyway, the patient is doing about the same. We'll hoping that this bronchoscopy helps her the hospital more quickly. Progress note dated 06/13/2016 51-year-old female with a history of severe chronic bronchial asthma as well as sleep apnea syndrome. Also suffers some multiple sclerosis, optic neuritis, autoimmune hepatitis, adrenal insufficiency, chronic anemia, hypothyroidism, hyperlipidemia, and avascular necrosis of the left hip. She was seen by the ear nose and throat doctor yesterday. We did do bronchoscopy yesterday. Feeling much better. I did ask her to call the office and get in to see us this week. She still not completely back to baseline and I did ask her to lay low this weekend. She should be discharged on a prednisone burst and taper and/ or she go back on her cortef. In addition she should be discharged home on some antibiotics. Objective - Vital Signs Vital signs: Vital Signs Temp 96.7 F L 06/13/16 07:00 Pulse 84 06/13/16 08:38 Resp 16 06/13/16 07:00 BP 121/88 06/13/16 07:00 Pulse Ox 95 06/13/16 07:00 Intake & Output 06/12/16 06/13/16 06/13/16 18:59 06:59 18:59 Intake Total 250 Balance 250 Intake: IV 50 Intake, IV Titration 200 Amount Sodium Chloride 0.9% 1, 200 000 ml @ 20 mls/hr IV . Q24H YANIV Rx#:[id number] Other: Voiding Method Toilet Toilet Toilet # Voids 3 1 - Exam No acute distress, oriented 3. HEENT examination is grossly unremarkable. Mucous membranes are moist. No oral lesions. She get a tse face. Neck supple. Full range of motion. No adenopathy or thyromegaly. Neck veins are flat. Cardiovascular examination reveals regular rhythm rate. S1-S2 normal. No S3- S4 or murmur. Lungs reveal coarse expiratory rhonchi. Lung sounds have improved. A few scattered mild wheezes. Breath sounds are equal. All all, lung sounds have been much improved since admission. Abdomen soft bowel sounds are heard. Extremities are intact. No cyanosis clubbing or edema. Skin without lesion. Brief neurologic examination is nonfocal. - Labs CBC & Chem 7: 06/09/16 22:35 06/09/16 22:35 Labs: Abnormal Lab Results - Last 24 Hours (Table) 06/12/16 06/12/16 06/12/16 Range/Units 11:23 16:35 20:50 POC Glucose (mg/dL) 125 H 120 H 129 H (75-99) mg/dL 06/13/16 Range/Units 07:00 POC Glucose (mg/dL) 102 H (75-99) mg/dL Microbiology - Last 24 Hours (Table) 06/12/16 10:45 Gram Stain - Preliminary Bronchial Washings - Right Bronchial Washings Culture - Preliminary 06/12/16 10:45 Fungal Culture - Preliminary Bronchial Washings - Right 06/12/16 10:45 Acid Fast Bacilli Culture - Preliminary Bronchial Washings - Right Assessment and Plan (1) Adrenal insufficiency Status: Acute (2) Sleep apnea Status: Acute (3) Autoimmune hepatitis Status: Acute (4) Hypothyroidism Status: Acute (5) Hyperlipidemia Status: Acute (6) Anemia of chronic disease Status: Acute (7) Asthma exacerbation Status: Acute (8) Avascular necrosis of bone of left hip Status: Acute (9) Status post total hip replacement, left Status: Acute Plan: Plan dated 06/11/2016 The patient will be scheduled for bronchoscopy tomorrow. We'll try to get it done mid to late morning. We'll also ask her nose and throat to see her for her chronic sinus disease. She'll continue on her current medications. This include short acting beta agonist short acting muscarinic antagonist long- acting beta agonist inhaled corticosteroids and systemic corticosteroids on with oral antibiotics. She'll apply probably be discharged home on Thursday. Bronchoscopy on . Plan dated 06/12/2016 The patient will have a bronch today. We will continue to follow closely. Hopeful discharge on Thursday. Await ENT input. CAT scan of the sinuses was dictated as being normal. Plan dated 06/13/2016. The patient is doing much better. Possible discharge today. We'll leave that up to the hospitalist. I asked her to come in and see me in the office this week. She did see ear nose and throat doctor. CAT scan of the sinuses was discussed with her by that doctor. She should be discharged home on some steroids and some antibiotics. She'll follow-up with me this week either Thursday or . Time with Patient: Less than 30
[2016-06-13 12:17] LABS: Glucose,Whole Blood 102 mg/dL (75-99)
--- NOTE | 2016-06-16 15:03 | DS ---
DATE OF ADMISSION: 06/09/2016 DATE OF DISCHARGE: 06/13/2016 FINAL DIAGNOSIS(ES): 1. Severe persistent asthma with acute exacerbation having outpatient treatment, responded well to bronchoscopy, ( ) lavage with thick secretions removed. 2. Chronic fibromyalgia. 3. Gastroesophageal reflux disease. 4. Autoimmune liver disease disorder. 5. Primary osteoarthritis of multiple joints. 6. Multiple sclerosis, stable. 7. Chronic allergic rhinitis per Dr. Kuo. 8. Depression, anxiety, not otherwise specified. HOSPITAL COURSE: The patient presented with acute exacerbation of severe persistent asthma having a lot of crackles in the chest. On examination, the patient did undergo bronchoscopy with lavage that really helped. The patient otherwise treated with antibiotics and steroids, nebulized bronchodilators./ Cytology was negative and Gram stain was negative. AFB initially was negative. Fungal cultures are pending. On examination, lungs improved air entry. CARDIOVASCULAR: First and second sounds normal. PSYCH: Alert and oriented x3. Consultations: Dr. Dougherty from pulmonary; Dr. Kuo from ENT. DISCHARGE MEDICATIONS: 1. Ventolin 2 puffs q.i.d. p.r.n. 2. Singulair 10 mg q.h.s. 3. Dilaudid 4 mg q.4 p.r.n. 4. Vitamin D3 1000 units p.o. daily. 5. Klonopin 0.5 p.o. t.i.d., 6. Questran 4 grams p.o. b.i.d. 7. Tecfidera 240 mg p.o. b.i.d. 8. Breo Ellipta 200/25 1 puff daily. 9. Cortef 5 mg with lunch 15 mg in the morning. 10. Zestril 100 mg p.o. daily p.r.n. 11. Salagen 5 mg p.o. q.i.d. p.r.n. 12. Trintallix 20 mg p.o. daily. 13. ( ) injection every 90 days intramuscular. 14. Tessalon Perles 200 mg p.o. t.i.d. 15. Mirapex 100 mg p.o. b.i.d. 16. Phenergan with codeine 5 mL p.o. q.12 p.r.n. 17. Nexium 40 mg p.o. daily. 18. Asmanax 2 puffs q.h.s. 19. Trazodone 100 mg p.o. q.h.s. 20. Omnicef 300 mg p.o. q.12. 21. Claritin-D 1 tablet p.o. q.12. Follow-up with Dr. Kuo as scheduled. Follow-up with Dr. Dougherty in one week. Discharge planning more than 35 minutes.
--- NOTE | 2016-06-20 21:39 | PCN ---
DATE OF PROCEDURE: PROCEDURE: Bronchoscopy, airway examination, therapeutic lavage, bronchoalveolar lavage. PREOPERATIVE DIAGNOSIS: Retained secretions, severe chronic bronchial asthma. POSTOPERATIVE DIAGNOSIS: Retained secretions, severe chronic bronchial asthma. There was informed consent. There was universal timeout. D[employer] TR[employer]ER provided unconscious sedation with general anesthesia. After the patient was adequately sedated and being fully monitored, the bronchoscope was inserted through the right nostril. It passed through the right nasopharynx into the oropharynx. The hypopharynx was identified and topicalized. The hypopharyngeal structures, including the anterior commissure, true cords, false cords, piriform sinuses, right and left valleculae and epiglottis all appeared relatively normal. There were some secretions noted in the hypopharynx. They were suctioned. The hypopharynx and glottic opening were topicalized with lidocaine. The bronchoscope was pushed through the glottic opening into the trachea. Trachea appeared relatively normal. There were some secretions noted in the distal trachea. Tracheal pastor was sharp. The lungs were then thoroughly evaluated after the right and left mainstem were topicalized. The right upper lobe and its 3 segments, the right middle lobe and its 2 segments, the right lower lobe and its 5 segments, the left upper lobe proper and its 2 segments, the lingula and its 2 segments, and the left lower lobe and its 4 segments all had similar findings of diffuse airway edema, bronchitis, erythema and hyperemia. There was mucosal friability. There were thick secretions noted throughout. They were mostly noted in the lower lobes but were seen throughout the lungs. They were suctioned with some difficulty, as they were quite viscid and tenacious. Next the bronchoscope was wedged into the right middle lobe. The BAL took place. The patient tolerated the procedure well. I did one final look-through of the airways. Any additional secretions or mucus was suctioned and removed. The patient tolerated the procedure well. There was no immediate complication. The patient will be recovered. The findings will be reported back to the patient.
== END 2016-06-13 15:25 | disposition home or self-care (01) | DRG 167 ==
LOC: 4MS4W 13:12
PROVIDERS: ADMIT Hospitalist; ATTEND Hospitalist
PROC: 0B9D8ZX Drainage of Right Middle Lung Lobe, Via Natural or Artificial Opening Endoscopic, Diagnostic (ICD-10-PCS; principal; 2016-06-12 07:30)
DX: J45.51 Severe persistent asthma with (acute) exacerbation (principal); E27.40 Unspecified adrenocortical insufficiency; K75.4 Autoimmune hepatitis; H46.9 Unspecified optic neuritis; G35 Multiple sclerosis; F32.9 Major depressive disorder, single episode, unspecified; K21.9 Gastro-esophageal reflux disease without esophagitis; M79.7 Fibromyalgia; M19.91 Primary osteoarthritis, unspecified site; F41.9 Anxiety disorder, unspecified; G47.33 Obstructive sleep apnea (adult) (pediatric); D63.8 Anemia in other chronic diseases classified elsewhere; E03.9 Hypothyroidism, unspecified; E78.5 Hyperlipidemia, unspecified; J44.9 Chronic obstructive pulmonary disease, unspecified; G43.909 Migraine, unspecified, not intractable, without status migrainosus; J31.0 Chronic rhinitis; J30.1 Allergic rhinitis due to pollen; Z96.643 Presence of artificial hip joint, bilateral; Z96.651 Presence of right artificial knee joint; Z91.010 Allergy to peanuts; Z88.0 Allergy status to penicillin; Z88.1 Allergy status to other antibiotic agents; Z91.012 Allergy to eggs; Z91.040 Latex allergy status; Z88.2 Allergy status to sulfonamides; Z91.018 Allergy to other foods; Z82.5 Family history of asthma and other chronic lower respiratory diseases; Z79.899 Other long term (current) drug therapy
CPT/HCPCS: 31624; 70486; 71020; 80048; 80053; 83036; 85025; 87070; 87102; 87116; 87205; 87206; 87252; 87496; 87498; 87502; 87529; 87798; 88108; 88305; 89050; 94640; 94760

== ENCOUNTER → 2016-06-16 | Outpatient (CLI) | payer MEDICARE | END | disposition home or self-care (01) | LOC: LABWHC1 10:22 | PROVIDERS: ATTEND Otolaryngology | DX: J30.9 Allergic rhinitis, unspecified (principal) | CPT/HCPCS: 36415 ==

== ENCOUNTER → 2016-08-30 | Outpatient (CLI) | payer MEDICARE ==
--- NOTE | 2016-08-30 11:01 | MR ---
EXAMINATION TYPE: MR brain wo/w con DATE OF EXAM: 08/30/2016 COMPARISON: 09/08/2014 HISTORY: 51-year-old female MS, headaches, insomnia, hx pituitary adenoma TECHNIQUE: Multiplanar, multisequence images of the brain and brainstem is performed without and wit h utilizing 20 mL intravenous MultiHance gadolinium contrast. Demyelinating disease protocol with ad ditional Sagittal Flair sequence performed. Additional coronal pre and postcontrast T1 fat sat sequen devorah for assessment of the pituitary gland. FINDINGS: T2 Lesions Present : Yes Approximate Number of Lesions: 16 in the left cerebral hemisphere and 8 in the right cerebral hemisph ere. Locations Identified : Primarily subcortical, a couple periventricular. Size of Reference Lesion(s): 1. 5 mm anterior right subinsular white matter. Enhancing Lesion(s) Present: No T1 Hypointense Lesion(s) Present: No Change from Prior: None. Diffusion weighted images demonstrate no evidence of a recent infarct or other diffusion abnormality. There is no worrisome extra-axial fluid collection. The ventricular system and cisternal spaces ar e normal in size and appearance. The brain volume is age appropriate. Midline structures demonstrate normal morphology. No sellar or suprasellar mass is seen. The pituitar y stalk is midline. Pituitary gland shows normal volume for patient's age. The craniocervical junctio n appears within normal limits. Post contrast images demonstrate no abnormal enhancement. The dural venous sinuses appear patent. Mild mucosal thickening ethmoid air cells. Globes are intact. IMPRESSION: 1. Stable chronic T2 bright white matter changes primarily in the subcortical regions with mild overa ll burden. 2. No sellar mass is identified.
== END | disposition home or self-care (01) ==
LOC: RADMRIMAIN 09:41
PROVIDERS: ATTEND Psychiatry & Neurology Neurology
DX: R90.82 White matter disease, unspecified (principal)
CPT/HCPCS: 70553; A9577

== ENCOUNTER → 2016-10-07 | Outpatient (CLI) | payer MEDICARE ==
--- NOTE | 2016-10-08 06:41 | PN ---
Tiarra is 51 years old with known history of obstructive sleep apnea and insomnia. The patient's obstructive sleep apnea is mild to moderate in nature with an AHI of 17.2 and she is still on CPAP therapy at a pressure of 9 cm of water. She is wearing her CPAP every night without any major difficulties. She is looking for an alternative mask. She had chronic and recurrent sinus infection which prevented her from wearing the AirFit P10 nasal pillows. As such, she is contemplating a full face mask. We trialed various different masks on her and I think the one that she chose today is an AirFit F20 full face mask , which fits her very good. She also has chronic issues with insomnia. She is on a combination of trazodone 150 mg at bedtime and Klonopin 1 mg at bedtime. She is also on a fentanyl patch for chronic pain. She goes to bed around 11:00 and it takes her around 20 minutes to fall asleep. She wakes up occasionally in the middle of the night and she ultimately gets out of bed around 6 to 7 a.m. She needs to be more compliant with her CPAP therapy. No recent weight gain. The suboptimal compliance on the CPAP therapy was due to the recurrent sinus infection. BP is 112/67, pulse 92, respiratory rate 16, temperature 98.1, saturation 95% on room air. Weight is 226. BMI is 34.8. [place] score is 15. GENERAL APPEARANCE: Calm, comfortable. HEENT: Short neck, crowding of posterior pharynx. There is no goiter or neck masses. LUNGS: Clear to auscultation. HEART SOUNDS: Regular rate and rhythm. Normal S1, S2. No S3. No murmurs. ABDOMEN: Soft, nontender. No organomegaly. EXTREMITIES: No edema, no cyanosis or clubbing. IMPRESSION: 1. Obstructive sleep apnea, moderate severity. AHI of 17. Currently on CPAP pressure of 9. 2. Difficulty in tolerating nasal pillows due to recurrent and chronic sinus infections. 3. Chronic insomnia, maintained on a combination of Klonopin and trazodone. 4. Multiple sclerosis. 5. Adrenal insufficiency. 6. Chronic pain. PLAN: 1. Encourage weight loss. 2. Continue CPAP at the same level of pressure. 3. Switch this patient on AirFit F20 full face mask. 4. See me back if there is any difficulties with her CPAP use. 5. Anticipate improvement in compliance with above mentioned adjustment and changes. Will continue to follow and make further recommendations accordingly. TAO
== END ==
LOC: SLEEP 15:03
PROVIDERS: ATTEND Internal Medicine Critical Care Medicine
DX: G47.33 Obstructive sleep apnea (adult) (pediatric) (principal); G47.00 Insomnia, unspecified; G35 Multiple sclerosis; E27.40 Unspecified adrenocortical insufficiency

== ENCOUNTER → 2016-12-01 | Outpatient (CLI) | payer MEDICARE | END | disposition home or self-care (01) | LOC: LABWHC1 14:04 | PROVIDERS: ATTEND Internal Medicine Endocrinology, Diabetes & Metabolism | DX: E27.3 Drug-induced adrenocortical insufficiency (principal) | CPT/HCPCS: 36415; 82024; 82533 ==

== ENCOUNTER 2017-01-01 10:45 | Day surgery (SDC) | payer MEDICARE ==
[2016-12-31 09:12] VITALS: BMI 33.1
[~2017-01-01 10:45] MED LIST changes: +LIDOCAINE 1% 20 ML VIAL (10MG/ML) FOR IV START INTRADERMA PRN; +LIDOCAINE 2% (PF) 20 MG/ML 10 ML AMP INHALATION ONE; -LIDOCAINE 2% (PF) 20 MG/ML 10ML INHALATION ONE
[2017-01-01] MEDS ORDERED: MIDAZOLAM 2 MG/2 ML VIAL ONE (12:09)
[2017-01-01] MEDS ORDERED: LIDOCAINE 1% INJ 10MG/ML (20 ML MDV) ONE (12:09)
[2017-01-01] MEDS ORDERED: GLYCOPYRROLATE 0.2 MG/ML 2 ML VIAL ONE (12:09)
[2017-01-01] MEDS ORDERED: PROPOFOL 10 MG/ML 20 ML VIAL IV ONE (12:09)
[2017-01-01] MEDS ORDERED: fentaNYL (PF) 50 MCG/ML 2 ML AMP ONE (12:09)
[2017-01-01] MEDS ORDERED: ONDANSETRON 4 MG/2 ML VIAL ONE (12:09)
[2017-01-01] MEDS ORDERED: LIDOCAINE 2% SYG (PF) 100 MG/5 ML MISCELLANE ONE (12:22)
[2017-01-01] MEDS ORDERED: VANCOMYCIN 1,000 MG in SODIUM CHLORIDE 0.9% 250 ML IVPB STA (12:33)
[2017-01-01] MEDS ORDERED: methylPREDNISolone SOD SUCCI 125 MG/2 ML VIAL IV STA (12:35)
--- NOTE | 2017-01-01 13:03 | PCN ---
PROCEDURE NOTE PROCEDURE: Bronchoscopy, BAL, airway examination, therapeutic lavage. PREOPERATIVE DIAGNOSIS: Asthma, retained secretions. POSTOPERATIVE DIAGNOSIS: Asthma, retained secretions. There was informed consent. There was a universal timeout. provided unconscious sedation and general anesthesia. The patient's procedure was done in room #1 with . After the patient was adequately sedated and being fully monitored, the bronchoscope was inserted through the right nostril. It passed through the right nasopharynx into the oropharynx. The hypopharynx was identified and topicalized. The hypopharyngeal structures including anterior commissure, true cords, false cords, arytenoids, piriform sinuses, right and left vallecula and epiglottis all appeared normal. After topicalization, the bronchoscope was placed through the glottic opening into the trachea. There were some secretions noted in the trachea. The trachea was otherwise normal. Tracheal pastor was sharp. Right and left mainstem were topicalized. Right upper lobe and its three segments, the right middle lobe and its two segments, right lower lobe and its five segments and left upper lobe proper and its two segments, the lingula and its two segments and the left lower lobe and its four segments all appeared relatively normal and all had similar findings of diffuse moderate bronchitis. There was mucosal erythema and hyperemia. There was some foamy secretions noted throughout. Not much color to the secretions. No bleeding. There was some degree of mucosal friability. No dominant mass or lesion. The bronchoscope was wedged into the right middle lobe. BAL took place. The bronchoscope was withdrawn. There was no major complication. The patient will be recovered. MMODL / IJN: [id number] /
[2017-01-01 13:14] VITALS: RESP 18
[2017-01-01] MEDS ORDERED: MEROPENEM 1 GM in SODIUM CHLORIDE 0.9% 100 ML IVPB STA (14:33)
[2017-01-01] MEDS ORDERED: SODIUM CHLORIDE 0.9% 100 ML IV ONE (15:24)
[2017-01-01 15:51] VITALS: TEMP 98.1
[2017-01-01] MEDS ORDERED: HEPARIN SODIUM,PORCINE 100 UNIT/ML 5 ML VIAL IV ONE (16:20)
[2017-01-01 16:40] VITALS: BP 100/66; PULSE 100
[2017-01-01 16:46] LABS: RBC, Body Fluid 1120 /uL
== END 2017-01-01 16:25 | disposition home or self-care (01) ==
LOC: ORWHC2ENDO 10:45
PROVIDERS: ATTEND Internal Medicine Critical Care Medicine
DX: J45.30 Mild persistent asthma, uncomplicated (principal); J81.1 Chronic pulmonary edema; E03.9 Hypothyroidism, unspecified; E27.40 Unspecified adrenocortical insufficiency; G47.33 Obstructive sleep apnea (adult) (pediatric); G35 Multiple sclerosis; I47.1 Supraventricular tachycardia; K75.4 Autoimmune hepatitis; R00.0 Tachycardia, unspecified; K21.9 Gastro-esophageal reflux disease without esophagitis; M79.7 Fibromyalgia; Z79.51 Long term (current) use of inhaled steroids; Z79.52 Long term (current) use of systemic steroids; Z79.899 Other long term (current) drug therapy; Z88.6 Allergy status to analgesic agent; Z88.1 Allergy status to other antibiotic agents; Z91.02 Food additives allergy status; Z91.040 Latex allergy status; Z88.0 Allergy status to penicillin; Z88.2 Allergy status to sulfonamides; Z88.8 Allergy status to other drugs, medicaments and biological substances; Z91.018 Allergy to other foods; Z91.09 Other allergy status, other than to drugs and biological substances
CPT/HCPCS: 94640; 87798 ×4; 87496; 87498; 87529 ×2; 88108; 88305; 89050; 87252; 87502; 87070; 87205; 87116; 87102; 87206; 31624; J2250; J3370; J0461; J1642; J2930; J2001 ×3; J2405; J3010; J2704

== ENCOUNTER 2017-01-05 08:48 | Inpatient (IN) | payer MEDICARE ==
[2017-01-05] MEDS ORDERED: IPRATROPIUM-ALBUTEROL 3 ML NEB INHALATION PRN (10:31)
[2017-01-05] MEDS ORDERED: VANCOMYCIN IV PER PHARMACY 1 EACH MISC MISCELLANE PRN (10:32)
[2017-01-05] MEDS ORDERED: VANCOMYCIN 1,750 MG in SODIUM CHLORIDE 0.9% 250 ML IVPB STA (10:39)
--- NOTE | 2017-01-05 10:51 | P.CNPUL ---
History of Present Illness Consult date: 01/05/17 Reason for consult: dyspnea, cough, asthma, hypoxemia Chief complaint: Shortness of breath History of present illness: Consult dated 01/05/2017 This is a 51-year-old female who I know very well. I service her primary doctor. Among other things, she has a history of severe asthma multiple sclerosis optic neuritis adrenal insufficiency chronic pain syndrome optic neuritis postural orthostatic tachycardia syndrome, etc. The patient has not been doing well from her asthma. She recently had a bronchoscopy done last week. After the procedure, we placed her on some IV Solu-Medrol and some IV antibiotics in the form of vancomycin and meropenem. They will be administered [facility] and she will receive them on Thursday and Thursday. The plan was that we would try to keep her out of the hospital. Her procedure was done last Thursday. Unfortunately, she did not respond to outpatient antibiotics and steroids and so she was admitted directly from the office today. She's not feeling much better. His shortness of breath cough wheezing chest tightness and phlegm production. No fever or chills. No nausea vomiting or diarrhea. No chest pain. So far, all her specimens from the bronchoscopy have been negative or pending. Review of Systems A 12 point review of system is positive for shortness of breath chest tightness wheezing cough weakness and fatigue. She is coughing up some phlegm not a lot. No fever or chills. No chest pain or chest discomfort. No nausea vomiting or diarrhea. Past Medical History Past Medical History: Asthma, COPD, Fibromyalgia, GERD/Reflux, Neurologic Disorder, Osteoarthritis (OA), Sleep Apnea/CPAP/BIPAP, Supraventricular Tachycardia (SVT) Additional Past Medical History / Comment(s): increased cough over a week, multiple sclerosis,optic neuritis,anemia,migraines,adrenal insufficiency,auto immune hepatitis, uses c-pap machine, avascular necrosis, uses cane as needed, daily steroid History of Any Multi-Drug Resistant Organisms: None Reported Past Surgical History: Bowel Resection, Cholecystectomy, Heart Catheterization, Hysterectomy, Joint Replacement, Orthopedic Surgery, Tonsillectomy Additional Past Surgical History / Comment(s): sinus surgery,blepharoplasty jayleen eyes,POWER PORT -IMPLANTABLE PORT-under right clavicle-bowel adhesions, rt knee replacement , 8 INCH BOWEL REMOVED, jayleen total hip replacement. several BRONCHOSCOPY Past Anesthesia/Blood Transfusion Reactions: Blood Transfusion Reaction Additional Past Anesthesia/Blood Transfusion Reaction / Comment(s): HX OF BLOOD TRANSFUSION : HAS CARD STATING K ANTIBODY AFTER RECEIVING A TRANSFUSION Smoking Status: Never smoker - Past Family History Mother Family Medical History: Hypertension Father Family Medical History: COPD, Hypertension Additional Family Medical History / Comment(s): Father at the age of 69 yrs from emphysema Brother(s) Additional Family Medical History / Comment(s): Brother-DE X2 Medications and Allergies Home Medications Medication Instructions Recorded Confirmed Type Albuterol Inhaler [Ventolin Hfa 2 puff INHALATION RT-QID PRN 07/14/13 01/03/17 History Inhaler] Montelukast [Singulair] 10 mg PO HS 07/14/13 01/05/17 History HYDROmorphone [Dilaudid] 4 mg PO Q4-6H PRN 08/03/13 01/05/17 History Cholecalciferol [Vitamin D3] 12,000 unit PO DAILY 07/22/14 01/05/17 History clonazePAM [KlonoPIN] 0.5 mg PO TID 01/25/15 01/05/17 History Dimethyl Fumarate [Tecfidera] 240 mg PO BID 11/19/15 01/05/17 History Fluticasone/Vilanterol [Breo 1 puff INHALATION RT-DAILY 11/19/15 01/05/17 History Ellipta 200-25 Mcg INH] Hydrocortisone [Cortef] 5 mg PO 0700,1200 11/19/15 01/05/17 History hydrOXYzine PAMOATE [Vistaril] 100 mg PO DAILY PRN 11/19/15 01/05/17 History Xeomin Inj 1 injection IM Q90D 12/11/15 01/05/17 History Benzonatate [Tessalon Perles] 200 mg PO TID 03/06/16 01/03/17 History Pramipexole Di-HCl [Mirapex] 1 mg PO BID 03/06/16 01/03/17 History Promethaz-Cod 6.25-10 mg/5 ml 5 ml PO Q12H PRN 03/06/16 01/05/17 History [Phenergan with Codeine] Esomeprazole Magnesium [NexIUM] 40 mg PO QAM 03/07/16 01/05/17 History Mometasone Inhalr 220 Mcg/Puff 2 puff INHALATION RT-HS 03/07/16 01/05/17 History [Asmanex] traZODone HCL 100 mg PO HS 06/02/16 01/05/17 History Loratadine-Pseudoeph 5-120 mg 1 each PO Q12HR tab.er.12h 06/13/16 01/03/17 Rx [Claritin-D 12 Hour] DULoxetine HCL [Cymbalta] 60 mg PO QAM 11/13/16 01/05/17 History Methocarbamol [Robaxin] 1,000 mg PO TID 11/13/16 01/03/17 History Allergies Allergy/AdvReac Type Severity Reaction Status Date / Time Sulfa (Sulfonamide Allergy Severe Rash/Hives Verified 01/03/17 09:54 Antibiotics) bupropion HCl AdvReac Severe Rash/Hives Verified 01/03/17 09:54 [From Wellbutrin] gluten AdvReac Severe Nausea & Verified 01/03/17 09:54 Vomiting & Diarrhea interferon beta AdvReac Severe Rash/Hives Verified 01/03/17 09:54 interferon beta-1a AdvReac Severe Rash/Hives Verified 01/03/17 09:54 [From Avonex] lamotrigine [From Lamictal] AdvReac Severe Rash/Hives Verified 01/03/17 09:54 milk AdvReac Severe Nausea & Verified 01/03/17 09:54 Vomiting oxaprozin [From Daypro] AdvReac Severe Rash/Hives Verified 01/03/17 09:54 Penicillins AdvReac Severe Rash/Hives Verified 01/03/17 09:54 soy AdvReac Severe Nausea & Verified 01/03/17 09:54 Vomiting & Diarrhea azithromycin AdvReac Unknown Rash/Hives, Verified 01/03/17 09:54 RED SKIN, ITCHING doxycycline AdvReac Unknown Rash/Hives Verified 01/03/17 09:54 latex AdvReac Unknown Blisters Verified 01/03/17 09:54 albumin human AdvReac Rash/Hives Verified 01/03/17 09:54 [From Rebif (with albumin)] dicyclomine [From Bentyl] AdvReac Rash/Hives Verified 01/03/17 09:54 wheat AdvReac Nausea & Verified 01/03/17 09:54 Vomiting & Diarrhea surgical yusra Allergy Rash/Hives Uncoded 01/03/17 09:54 ADHESIVE AdvReac Severe BLISTERS Uncoded 01/03/17 09:54 TO SKIN MASTISOL AdvReac Severe BLISTERS Uncoded 01/03/17 09:54 TO SKIN STERISTRIPS AdvReac Severe BLISTERS Uncoded 01/03/17 09:54 TO SKIN Physical Exam Osteopathic Statement: *. No significant issues noted on an osteopathic structural exam other than those noted in the History and Physical/Consult. Vitals: Vital Signs Temp Pulse Resp BP Pulse Ox 01/05/17 10:00 97.6 F 87 18 122/76 95 Intake and Output 01/04/17 01/05/17 01/05/17 22:59 06:59 14:59 Other: Weight 86.5 kg Patient Weight 01/06/17 06:59 Weight 86.5 kg No acute distress, oriented 3. HEENT examination is grossly unremarkable. Mucous membranes are moist. No oral lesions. Neck supple. Full range of motion. No adenopathy or thyromegaly. Neck veins are flat. Cardiovascular examination reveals regular rhythm rate. S1-S2 normal. No S3- S4 or murmur. Lungs reveal some expiratory wheezes and rhonchi. Breath sounds are diminished. There is prolongation on forced maneuver. The patient wheezes and coughs on forced maneuver. Abdomen soft bowel sounds are heard. No masses or tenderness. Extremities are intact. No cyanosis clubbing or edema. Skin is without rash. Neurologic examination is nonfocal. Assessment and Plan (1) POTS (postural orthostatic tachycardia syndrome) Current Visit: Yes Status: Acute Code(s): R00.0 - TACHYCARDIA, UNSPECIFIED; I95.1 - ORTHOSTATIC HYPOTENSION SNOMED Code(s): 089547812 (2) Multiple sclerosis Current Visit: Yes Status: Acute Code(s): G35 - MULTIPLE SCLEROSIS SNOMED Code(s): 27324815 (3) Optic neuritis Current Visit: Yes Status: Acute Code(s): H46.9 - UNSPECIFIED OPTIC NEURITIS SNOMED Code(s): 65218685 (4) Tracheobronchitis Current Visit: Yes Status: Acute Code(s): J40 - BRONCHITIS, NOT SPECIFIED ACUTE OR CHRONIC SNOMED Code(s): 46717804 (5) Adrenal insufficiency Current Visit: No Status: Acute Code(s): E27.40 - UNSPECIFIED ADRENOCORTICAL INSUFFICIENCY SNOMED Code(s): 431894176 (6) Allergic rhinitis due to mold Current Visit: No Status: Acute Code(s): J30.89 - OTHER ALLERGIC RHINITIS SNOMED Code(s): 76355994915519537 (7) Asthma exacerbation Current Visit: No Status: Acute Code(s): J45.901 - UNSPECIFIED ASTHMA WITH ( ACUTE) EXACERBATION SNOMED Code(s): 124662130 (8) Sleep apnea Current Visit: No Status: Acute Code(s): G47.30 - SLEEP APNEA, UNSPECIFIED SNOMED Code(s): 53832071 Plan: Plan dated 01/05/2017 The patient will get the usual cocktails including DuoNeb 4 times a day and when necessary Pulmicort 1 mg along with formoterol twice a day, Solu-Medrol 60 mg every 6 hours, and a combination of both vancomycin 1 g every 24 and Merrem 1 g every 8 hours. In addition, chest x-ray and blood work will be done. The primary hospitalist will be responsible for the other medications. I Vertie spoken to the nurse practitioner who works with him. We'll continue to follow. Cultures done. Time with Patient: Greater than 30
[2017-01-05 11:03] LABS: Basophils % (A) 0 %; CH 29.7; CHCM 31.9; Eosinophils % (A) 1 %; HCT 38.3 % (34.0-46.0); HDW 2.05; HGB 12.1 gm/dL (11.4-16.0); Luc # (Auto) 0.12; Luc % (Auto) 2; Lymphocytes # (A) 1.5 k/uL (1.0-4.8); Lymphocytes % (A) 22 %; MCH 29.5 pg (25.0-35.0); MCHC 31.6 g/dL (31.0-37.0); MCV 93.3 fL (80.0-100.0); Mean Platelet Volume 7.5; Monocytes # (A) 0.7 k/uL (0-1.0); Monocytes % (A) 11 %; Neutrophils # (A) 4.4 k/uL (1.3-7.7); Neutrophils % (A) 65 %; RBC 4.11 m/uL (3.80-5.40); RDW 12.9 % (11.5-15.5); WBC 6.8 k/uL (3.8-10.6); WBC (Perox) 6.87
[2017-01-05 11:13] LABS: ALT 30 U/L (9-52); AST 16 U/L (14-36); Alkaline Phosphatase 79 U/L (38-126); Anion Gap 10 mmol/L; Blood Urea Nitrogen 12 mg/dL (7-17); Calcium 8.6 mg/dL (8.4-10.2); Carbon Dioxide 25 mmol/L (22-30); Chloride 105 mmol/L (98-107); Glucose 90 mg/dL (74-99); Non-African American GFR(MDRD) >60 (>60 ml/min/1.73 sqM); Potassium 3.6 mmol/L (3.5-5.1); Sodium 140 mmol/L (137-145); Total Bilirubin 0.2 mg/dL (0.2-1.3); Total Protein 6.5 g/dL (6.3-8.2)
[2017-01-05] MEDS: IPRATROPIUM-ALBUTEROL 3 ML NEB INHALATION SCH ×3 (11:34→20:28)
[2017-01-05] MEDS: methylPREDNISolone SOD SUCCI 125 MG/2 ML VIAL IV SCH ×2 (11:59→17:17)
[2017-01-05] MEDS: VANCOMYCIN 1,500 MG in SODIUM CHLORIDE 0.9% 250 ML IVPB SCH (12:00)
[2017-01-05] MEDS: SODIUM CHLORIDE 0.9% 1,000 ML IV SCH (12:05)
[2017-01-05 12:22] LABS: Glucose,Whole Blood 70 mg/dL (75-99)
--- NOTE | 2017-01-05 12:31 | XR ---
EXAMINATION TYPE: XR chest 2V DATE OF EXAM: 01/05/2017 COMPARISON: 06/10/2016 HISTORY: 51 year-old female chronic asthma exacerbation TECHNIQUE: Frontal and lateral views FINDINGS: Right anterior chest wall subclavian access injection port with catheter tip at the cavoatrial juncti on. The cardiomediastinal silhouette, aorta, and pulmonary vasculature are within normal limits. Lung s and pleural spaces are clear. IMPRESSION: No acute cardiopulmonary process.
--- NOTE | 2017-01-05 13:34 | HP ---
HISTORY AND PHYSICAL DATE OF ADMISSION: 01/05/2017 PRESENTING COMPLAINT: Short of breath, wheezing. This is a 51-year-old patient admitted by Dr. Dougherty, who has got a history of chronic stable conditions including chronic fibromyalgia, GERD, autoimmune liver disease, primary osteoarthritis, multiple sclerosis, chronic allergic rhinitis, depression, anxiety. The patient has a history of severe persistent asthma. With Dr. Dougherty, she did undergo a bronchoscopy with lavage last week by Dr. Dougherty. All the cultures have been looking negative. The patient for 1 week has been increasing amount of cough, short of breath, wheezing, congested, some chills. The patient for 3 days since last Thursday was sent home on IV vancomycin and meropenem by Dr. Dougherty and admitted for the same. The patient's appetite has gone down. The patient has some stuffy nose, tired, run down. REVIEW OF SYSTEMS: CONSTITUTIONAL: Tired. HEENT: As above. RESPIRATORY: As above. CARDIOVASCULAR: None. GASTROINTESTINAL: Heartburn. GENITOURINARY: None. MUSCULOSKELETAL: Aches and pains in the joints. DERMATOLOGICAL: None. HEMATOLOGICAL: None. LYMPHATIC: None. PSYCHIATRY: Depression controlled. NEUROLOGICAL: None. PAST MEDICAL HISTORY: Past medical history of depression, anxiety, chronic allergic rhinitis, multiple sclerosis, primary osteoarthritis, autoimmune liver disease, GERD, chronic fibromyalgia, severe persistent asthma, sleep apnea, bilateral optic neuritis, chronic anemia. The patient has not been using a CPAP. Bilateral hip avascular necrosis with surgery. PAST SURGICAL HISTORY: Bowel resection, cholecystectomy, cardiac catheterization, tonsillectomy, sinus surgery, blepharoplasty, right knee replacement, 8 inches of bowel removed due to twisting of the bowel, bilateral total hip replacement, bilateral breast benign biopsy, back injections, several bronchoscopies. PAST PSYCH HISTORY: Anxiety, depression. SOCIAL HISTORY: . No smoking. Alcohol rarely. FAMILY HISTORY: Brother having heart attack x2 and hypertension. HOME MEDICATIONS: 1. Trazodone 150 mg q.h.s. 2. Vistaril 100 mg p.o. q.4 p.r.n. 3. Klonopin 0.5 p.o. t.i.d. p.r.n. 4. Xeomin 1 injection IM every 90 days. 5. Vitamin D3, 12.000 units p.o. daily. 6. Phenergan with codeine 5 mL p.o. q.12 p.r.n. 7. Compazine 10 mg q.8 p.r.n. 8. Singulair 10 mg q.h.s. 9. Asmanex 2 puffs daily. 10.Remeron 15 mg p.o. t.i.d. p.r.n. 11.Robaxin 500 mg p.o. t.i.d. p.r.n. 12.Mobic 15 mg p.o. daily. 13.Antivert 12.5 p.o. q.8 p.r.n. 14.Cortef 5 mg p.o. b.i.d. 15.Dilaudid 4 mg p.o. q.4 to 6 p.r.n. 16.Breo Ellipta 1 puff daily. 17.Flonase 2 puffs b.i.d. 18.Diflucan 200 mg p.o. daily p.r.n. 19.Renetta D 1 tablet p.o. daily. 20.Iron 325 p.o. with supper. 21.Nexium 40 mg p.o. daily. 22.Tecfidera 240 mg p.o. b.i.d. 23.Cymbalta 60 mg p.o. daily. 24.Questran 4 gram p.o. b.i.d. 25.Ventolin HFA 2 puffs q.i.d. p.r.n. ALLERGIES: List is long to include SULFA, ADHESIVE, ALCOHOL, AMOXICILLIN, , COPAXONE, GUM MASTIC, INTERFERON BETA, METHYL SALICYLATES, STORAX, BACTRIM, WELLBUTRIN, GLUTEN, LAMICTAL, MILK, DAYPRO, PENICILLIN, SOY, AZITHROMYCIN, DOXYCYCLINE, LATEX, HUMAN ALBUMIN, WHEAT, COWS MILK, SURGICAL SAMANTHA, STERI-STRIPS. PHYSICAL EXAMINATION: On examination, temperature 97.6, pulse 87, respiratory 18, blood pressure 122/76, pulse ox 95% on room air. GENERAL APPEARANCE: Well built, BMI 32.2, sitting up, tired appearing. EYES: Pupils equal. Conjunctivae normal. HENT: Oral cavity normal. NECK: JVD not raised. Mass not palpable. RESPIRATORY: Effort increased. LUNGS: Decreased breath sounds. Prolonged expiration. Wheezing specially anteriorly. CARDIOVASCULAR: First and second sounds normal. No edema. ABDOMEN: Soft, nontender. Liver and spleen not palpable. LYMPHATIC: No lymph node palpable in the neck or axillae. PSYCHIATRY: Alert and oriented x3. Mood and affect normal. NEUROLOGICAL: Pupils equal. Cranial nerves grossly intact. Power and sensation grossly intact. INVESTIGATIONS: White count 6.8, hemoglobin 12.1. Potassium 3.6. BUN and creatinine normal. Chest x- ray reviewed by me appears to be unremarkable. The patient's micro from bronch last week not available. ASSESSMENT: 1. Acute severe persistent asthma exacerbation could be from viral bronchitis. 2. Chronic fibromyalgia. 3. Gastroesophageal reflux disease. 4. Autoimmune liver disease. 5. Primary osteoarthritis multiple joints. 6. Multiple sclerosis, stable. 7. Chronic allergic rhinitis. 8. Depression, anxiety, not otherwise specified. 9. Postural orthostatic tachycardia syndrome. 10.Chronic optic neuritis, stable. 11.Chronic adrenal insufficiency. PLAN: The patient is seen by Dr. Dougherty from Pulmonary. He has the patient on DuoNeb, Pulmicort, Brovana, IV Solu-Medrol, and also has the patient on vancomycin and Merrem. Home medications are resumed. The patient also being bothered by restless leg syndrome. Will add Mirapex for the same. Care was discussed with the patient. MMODL / IJN: [id number] /
[2017-01-05 14:02] LABS: Appearance,Urine Clear (Clear); Bilirubin,Urine Negative (Negative); Glucose,Urine (UA) Negative (Negative); Ketones,Urine Negative (Negative); Leukocyte Esterase,Urine Negative (Negative); Nitrite,Urine Negative (Negative); Protein,Urine Negative (Negative); Specific Gravity,Urine 1.003 (1.001-1.035); Urobilinogen,Urine <2.0 mg/dL (<2.0)
[2017-01-05 14:03] LABS: UA Billing (MACRO vs. MICRO) CHEM
[2017-01-05] MEDS ORDERED: MIRTAZAPINE 15 MG TAB PO PRN (14:15)
[2017-01-05] MEDS ORDERED: PROCHLORPERAZINE 10 MG TAB PO PRN (14:15)
[2017-01-05] MEDS ORDERED: hydrOXYzine PAMOATE 25 MG CAP PO PRN (14:15)
[2017-01-05] MEDS ORDERED: METHOCARBAMOL 500 MG TAB PO PRN (14:15)
[2017-01-05] MEDS ORDERED: MECLIZINE 12.5 MG TAB PO PRN (14:15)
[2017-01-05] MEDS ORDERED: FLUCONAZOLE 100 MG TAB PO PRN (14:15)
[2017-01-05 14:52] VITALS: BMI 29.0
[2017-01-05] MEDS: PROMETHAZ-COD 6.25-10 MG/5 ML 5 ML CUP PO PRN (14:56)
[2017-01-05] MEDS: MEROPENEM 1 GM in SODIUM CHLORIDE 0.9% 100 ML IVPB SCH (16:35)
[2017-01-05] MEDS: FERROUS SULFATE 325 MG TAB PO SCH (16:37)
[2017-01-05 17:19] LABS: Glucose,Whole Blood 155 mg/dL (75-99)
[2017-01-05] MEDS: INSULIN ASPART 100 UNIT/ML 1 ML 10 ML VIAL SQ SCH ×2 (17:36→21:10)
[2017-01-05] MEDS: BUDESONIDE 1 MG/2 ML NEBU INHALATION SCH (20:28)
[2017-01-05] MEDS: FORMOTEROL FUMARATE 20 MCG/2 ML NEBU INHALATION SCH (20:28)
[2017-01-05] MEDS: traZODone HCL 100 MG TAB PO SCH (21:08)
[2017-01-05] MEDS: CHOLESTYRAMINE (WITH SUGAR) 4 GM PACKET PO SCH (21:09)
[2017-01-05] MEDS: MONTELUKAST 10 MG TAB PO SCH (21:09)
[2017-01-05] MEDS: DIMETHYL FUMARATE 240 MG PO SCH (21:10)
[2017-01-05 21:11] LABS: Glucose,Whole Blood 125 mg/dL (75-99)
[2017-01-05] MEDS: FLUTICASONE 50MCG/SPRAY NASAL 16GM NASAL SCH (21:11)
[2017-01-05] MEDS: clonazePAM 0.5 MG TAB PO PRN (21:15)
[2017-01-06] MEDS: methylPREDNISolone SOD SUCCI 125 MG/2 ML VIAL IV SCH ×5 (00:15→22:20)
[2017-01-06] MEDS: MEROPENEM 1 GM in SODIUM CHLORIDE 0.9% 100 ML IVPB SCH ×4 (00:15→22:19)
[2017-01-06] MEDS: VANCOMYCIN 1,500 MG in SODIUM CHLORIDE 0.9% 250 ML IVPB SCH ×3 (01:17→22:20)
[2017-01-06] MEDS: PROMETHAZ-COD 6.25-10 MG/5 ML 5 ML CUP PO PRN ×3 (01:20→17:36)
[2017-01-06] MEDS: SODIUM CHLORIDE 0.9% 1,000 ML IV SCH ×2 (02:16→14:20)
[2017-01-06] MEDS: HYDROmorphone 2 MG TAB PO PRN ×4 (03:30→22:18)
[2017-01-06 07:20] LABS: Glucose,Whole Blood 116 mg/dL (75-99)
[2017-01-06] MEDS: INSULIN ASPART 100 UNIT/ML 1 ML 10 ML VIAL SQ SCH ×4 (07:30→20:35)
[2017-01-06] MEDS: IPRATROPIUM-ALBUTEROL 3 ML NEB INHALATION SCH ×4 (07:56→19:44)
[2017-01-06] MEDS: FORMOTEROL FUMARATE 20 MCG/2 ML NEBU INHALATION SCH ×2 (07:56→19:44)
[2017-01-06] MEDS: BUDESONIDE 1 MG/2 ML NEBU INHALATION SCH ×2 (07:56→19:44)
[2017-01-06] MEDS: FLUTICASONE 50MCG/SPRAY NASAL 16GM NASAL SCH ×2 (07:58→20:34)
[2017-01-06] MEDS: PANTOPRAZOLE 40 MG TABLET PO SCH (07:58)
[2017-01-06] MEDS: DULoxetine HCL 60 MG CAPSULE.DR PO SCH (07:58)
[2017-01-06] MEDS: MELOXICAM 7.5 MG TAB PO SCH (07:58)
[2017-01-06] MEDS: LORATADINE-PSEUDOEPH 5-120 MG 1 EACH TAB.ER.12H PO SCH ×2 (07:58→21:02)
[2017-01-06] MEDS: CHOLESTYRAMINE (WITH SUGAR) 4 GM PACKET PO SCH ×2 (07:59→20:38)
[2017-01-06] MEDS: DIMETHYL FUMARATE 240 MG PO SCH ×2 (07:59→20:34)
[2017-01-06] MEDS ORDERED: NON-FORMULARY DRUG (Fluticasone/Vilanterol [Breo Ellipta 200-25 Mcg Inh] 1 PUFF) INHALATION SCH (08:00)
[2017-01-06] MEDS ORDERED: MOMETASONE INHALATION SCH (08:00)
[2017-01-06] MEDS: clonazePAM 0.5 MG TAB PO PRN ×2 (10:44→21:02)
[2017-01-06] MEDS: CHOLECALCIFEROL 1,000 UNIT TAB PO SCH (11:50)
[2017-01-06 12:25] LABS: Glucose,Whole Blood 106 mg/dL (75-99)
--- NOTE | 2017-01-06 12:37 | P.PN ---
Subjective Progress Note Date: 01/06/17 Principal diagnosis: Acute severe persistent asthma exacerbation This is a 51-year-old female who I know very well. I service her primary doctor. Among other things, she has a history of severe asthma multiple sclerosis optic neuritis adrenal insufficiency chronic pain syndrome optic neuritis postural orthostatic tachycardia syndrome, etc. The patient has not been doing well from her asthma. She recently had a bronchoscopy done last week. After the procedure, we placed her on some IV Solu-Medrol and some IV antibiotics in the form of vancomycin and meropenem. They will be administered her over to [facility] and she will receive them on Thursday and Thursday. The plan was that we would try to keep her out of the hospital. Her procedure was done last Thursday. Unfortunately, she did not respond to outpatient antibiotics and steroids and so she was admitted directly from the office today. She's not feeling much better. His shortness of breath cough wheezing chest tightness and phlegm production. No fever or chills. No nausea vomiting or diarrhea. No chest pain. So far, all her specimens from the bronchoscopy have been negative or pending. On 01/06/2017 patient seen in follow-up medical surgical floor. She states there is improvement in her wheezing, dyspnea and chest tightness. She denies any fever or chills, she is on room air with O2 sat at 94%. Afebrile since admission, no significant phlegm production. Lung sounds are coarse, but no wheezing, no rhonchi, no rales. She continues on empiric antibiotic coverage with ankle and meropenem. Continue with IV Solu-Medrol 60 every 6, Singulair, Pulmicort, Perforomist and DuoNeb nebulized treatments. She complains of leg restlessness, she was placed on Requip twice a day. Overall she has improved, we'll continue with current medical treatment. Objective - Vital Signs Vital signs: Vital Signs Temp 97.2 F L 01/06/17 07:00 Pulse 100 01/06/17 11:58 Resp 18 01/06/17 07:00 BP 135/65 01/06/17 07:00 Pulse Ox 94 L 01/06/17 07:00 Intake & Output 01/05/17 01/06/17 01/06/17 18:59 06:59 18:59 Output Total 600 Balance -600 Weight 86.5 kg Output: Urine 600 Other: Voiding Method Toilet Toilet # Voids 1 1 - Exam No acute distress, oriented 3. HEENT examination is grossly unremarkable. Mucous membranes are moist. No oral lesions. Neck supple. Full range of motion. No adenopathy or thyromegaly. Neck veins are flat. Cardiovascular examination reveals regular rhythm rate. S1-S2 normal. No S3- S4 or murmur. Lungs sounds are coarse. There is prolongation on forced maneuver. The patient wheezes and coughs on forced maneuver. Abdomen soft bowel sounds are heard. No masses or tenderness. Extremities are intact. No cyanosis clubbing or edema. Skin is without rash. Neurologic examination is nonfocal. - Labs CBC & Chem 7: 01/05/17 10:41 01/05/17 10:41 Labs: Abnormal Lab Results - Last 24 Hours (Table) 01/05/17 01/05/17 01/05/17 Range/Units 10:41 17:10 20:51 POC Glucose (mg/dL) 155 H 125 H (75-99) mg/dL Hemoglobin A1c 6.2 H (4.0-6.0) % 01/06/17 01/06/17 Range/Units 07:10 12:16 POC Glucose (mg/dL) 116 H 106 H (75-99) mg/dL Hemoglobin A1c (4.0-6.0) % Microbiology - Last 24 Hours (Table) 01/05/17 13:50 Urine Culture - Preliminary Urine,Clean Catch Assessment and Plan Plan: Assessment: #1. Acute exacerbation of severe persistent asthma with failed outpatient treatment #2. Acute tracheobronchitis #3. History of multiple sclerosis #4. Optic neuritis #5. Adrenal insufficiency #6. ALLERGIC rhinitis due to mold #7. Sleep apnea Plan: Patient is slightly improved, less wheezing and congestion. Lung sounds remain coarse, but overall less chest tightness and improvement in her pulmonary status noted. Continue current medical treatment, continue empiric antibiotics vancomycin and meropenem. Chest x-ray from 01/05/[address] has been reviewed [address] Dr[address] Dougherty and shows no acute cardiopulmonary process. I performed a history & physical examination of the patient and discussed their management with my nurse practitioner, Vibha Spivey. I reviewed the nurse practitioner's note and agree with the documented findings and plan of care. Lung sounds are coarse, but no wheezes, no rhonchi. Continue with same medical treatment. The findings and the impression was discussed with the patient. I attest to the documentation by the nurse practitioner. Time with Patient: Less than 30
[2017-01-06 17:17] LABS: Glucose,Whole Blood 122 mg/dL (75-99)
[2017-01-06] MEDS: FERROUS SULFATE 325 MG TAB PO SCH (17:26)
--- NOTE | 2017-01-06 20:09 | P.PN ---
Progress Note - Text Progress Note Date: 01/06/17 DATE OF SERVICE: 01/06/2017 PRESENTING COMPLAINT: Short of breath wheezing HISTORY OF PRESENT ILLNESS: 51-year-old female who recently underwent a bronchoscopy with lavage with Dr. Dougherty had increasing amount of cough and short of breath wheezing congested with some chills since the bronchoscopy. Patient was seen in the office by INTERVAL HISTORY: 01/06/2017: Patient seen in follow-up today, lying in bed appears comfortable. Breathing is improved since admission yesterday. States she did not sleep well last night due to restless legs and disturbances in the room from her roommate. States she takes her Mirapex twice to 3 times a day and we have only ordered it for her once daily. Tolerating her diet ambulatory in the room. REVIEW OF SYSTEMS: Done for constitutional ,cardiovascular, GI, pulmonary with relevant findings as above. CURRENT MEDICATIONS DuoNeb, Pulmicort, Solu-Medrol, Requip, vancomycin, meropenem PHYSICAL EXAM VITAL SIGNS: Temperature 98.1, pulse 77, respiratory rate 20, blood pressure 131/68, oxygen saturation 98% on room air. GENERAL APPEARANCE: Lying in bed, not in distress. EYES: Pupils equal. Conjunctiva normal. NECK: JVD not raised. Mass not palpable. RESPIRATORY: Respiratory effort increased Lungs diminished mild expiratory wheezing with prolonged expiration to auscultation. CARDIOVASCULAR: First and second sounds normal. No edema. ABDOMEN: Soft. Liver and spleen not palpable. No tenderness. No mass palpable. PSYCHIATRY: Alert and oriented x3. Mood and affect normal. INVESTIGATIONS: Labs: None new ASSESSMENT: -Acute severe persistent asthma exacerbation could be from viral bronchitis -Chronic fibromyalgia. -Gastroesophageal reflux disease. -Autoimmune liver disease. -Primary osteoarthritis multiple joints. -Multiple sclerosis, stable. -Chronic ALLERGIC rhinitis. -Depression, anxiety, not otherwise specified. -Postural orthostatic tachycardia syndrome. -Chronic optic neuritis, stable. -Chronic adrenal insufficiency. PLAN: Continue current antibiotics in the form of meropenem and vancomycin. Nebulized bronchodilators, IV steroids. Requip increased to twice a day. Plan of care discussed with the patient bedside we'll continue to follow closely. HOTEL SERVICE SUPERVISOR statement: Patient was seen and examined by nurse practitioner Lo Rey and all elements of the case discussed with attending Dr. Finch
[2017-01-06 20:28] LABS: Glucose,Whole Blood 129 mg/dL (75-99)
[2017-01-06] MEDS: MONTELUKAST 10 MG TAB PO SCH (20:35)
[2017-01-06] MEDS: traZODone HCL 100 MG TAB PO SCH (20:37)
[2017-01-06] MEDS ORDERED: VANCOMYCIN TROUGH DUE 1 EACH MISC MISCELLANE ONE (23:00)
--- NOTE | 2017-01-07 02:23 | PN ---
PROGRESS NOTE DATE OF SERVICE: 01/06/2017 ATTENDING NOTE: The patient is seen and examined by me. I discussed with my nurse practitioner, Noéclarita. This is a patient admitted with asthma exacerbation. Breathing is better. Tolerating a diet. He has a slight cough. Restless leg is better, but requesting the dose to be increased. EXAMINATION: Afebrile, pulse 77, respirations 20, blood pressure 113/68, 98% on room air. LUNGS: Mild wheezing anteriorly, posteriorly much improved. CARDIOVASCULAR: First and second sounds normal. Some anxiety present. INVESTIGATIONS: Accu-Cheks are noted. ASSESSMENT: 1. Severe persistent asthma with acute exacerbation, clinically improved. 2. Restless legs syndrome. PLAN: Patient is on IV meropenem and vancomycin by Dr. Dougherty and steroids, nebulized bronchodilators. Will cut back on the Solu-Medrol. Requip dose was increased. MMODL / IJN: [id number] /
[2017-01-07] MEDS: methylPREDNISolone SOD SUCCI 40 MG/ML 1 ML VIAL IV SCH ×2 (03:48→08:25)
[2017-01-07] MEDS: SODIUM CHLORIDE 0.9% 1,000 ML IV SCH (06:20)
[2017-01-07] MEDS: HYDROmorphone 2 MG TAB PO PRN (06:20)
[2017-01-07] MEDS: PROMETHAZ-COD 6.25-10 MG/5 ML 5 ML CUP PO PRN ×2 (06:22→13:13)
[2017-01-07] MEDS: clonazePAM 0.5 MG TAB PO PRN (06:24)
[2017-01-07 07:39] VITALS: BP 154/72; RESP 18; TEMP 97.2
[2017-01-07 07:43] LABS: Glucose,Whole Blood 101 mg/dL (75-99)
[2017-01-07] MEDS: INSULIN ASPART 100 UNIT/ML 1 ML 10 ML VIAL SQ SCH ×2 (07:57→12:26)
[2017-01-07] MEDS: BUDESONIDE 1 MG/2 ML NEBU INHALATION SCH (08:14)
[2017-01-07] MEDS: IPRATROPIUM-ALBUTEROL 3 ML NEB INHALATION SCH ×2 (08:14→12:14)
[2017-01-07] MEDS: FORMOTEROL FUMARATE 20 MCG/2 ML NEBU INHALATION SCH (08:14)
[2017-01-07 08:22] LABS: Anion Gap 8 mmol/L; Blood Urea Nitrogen 14 mg/dL (7-17); Carbon Dioxide 23 mmol/L (22-30); Chloride 109 mmol/L (98-107); Glucose 107 mg/dL (74-99); Non-African American GFR(MDRD) >60 (>60 ml/min/1.73 sqM); Potassium 4.4 mmol/L (3.5-5.1); Sodium 140 mmol/L (137-145)
[2017-01-07] MEDS: DULoxetine HCL 60 MG CAPSULE.DR PO SCH (08:22)
[2017-01-07] MEDS: CHOLESTYRAMINE (WITH SUGAR) 4 GM PACKET PO SCH (08:23)
[2017-01-07] MEDS: LORATADINE-PSEUDOEPH 5-120 MG 1 EACH TAB.ER.12H PO SCH (08:23)
[2017-01-07] MEDS: PANTOPRAZOLE 40 MG TABLET PO SCH (08:23)
[2017-01-07] MEDS: FLUTICASONE 50MCG/SPRAY NASAL 16GM NASAL SCH (08:23)
[2017-01-07] MEDS: MELOXICAM 7.5 MG TAB PO SCH (08:23)
[2017-01-07] MEDS: DIMETHYL FUMARATE 240 MG PO SCH (08:24)
[2017-01-07 08:27] VITALS: PULSE 84
[2017-01-07] MEDS: MEROPENEM 1 GM in SODIUM CHLORIDE 0.9% 100 ML IVPB SCH (08:42)
[2017-01-07] MEDS ORDERED: VANCOMYCIN 1,500 MG in SODIUM CHLORIDE 0.9% 250 ML IVPB SCH (10:00)
[2017-01-07 12:15] LABS: Glucose,Whole Blood 103 mg/dL (75-99)
--- NOTE | 2017-01-07 12:34 | P.PN ---
Subjective Progress Note Date: 01/07/17 Principal diagnosis: Acute severe persistent asthma exacerbation This is a 51-year-old female who I know very well. I service her primary doctor. Among other things, she has a history of severe asthma multiple sclerosis optic neuritis adrenal insufficiency chronic pain syndrome optic neuritis postural orthostatic tachycardia syndrome, etc. The patient has not been doing well from her asthma. She recently had a bronchoscopy done last week. After the procedure, we placed her on some IV Solu-Medrol and some IV antibiotics in the form of vancomycin and meropenem. They will be administered her over to [facility] and she will receive them on Thursday and Thursday. The plan was that we would try to keep her out of the hospital. Her procedure was done last Thursday. Unfortunately, she did not respond to outpatient antibiotics and steroids and so she was admitted directly from the office today. She's not feeling much better. His shortness of breath cough wheezing chest tightness and phlegm production. No fever or chills. No nausea vomiting or diarrhea. No chest pain. So far, all her specimens from the bronchoscopy have been negative or pending. On 01/06/2017 patient seen in follow-up medical surgical floor. She states there is improvement in her wheezing, dyspnea and chest tightness. She denies any fever or chills, she is on room air with O2 sat at 94%. Afebrile since admission, no significant phlegm production. Lung sounds are coarse, but no wheezing, no rhonchi, no rales. She continues on empiric antibiotic coverage with ankle and meropenem. Continue with IV Solu-Medrol 60 every 6, Singulair, Pulmicort, Perforomist and DuoNeb nebulized treatments. She complains of leg restlessness, she was placed on Requip twice a day. Overall she has improved, we'll continue with current medical treatment. On 01/07/2017 patient seen in follow-up on medical surgical floor. She continues to improve, she thinks she is improving enough to go home today. Lung sounds are coarse, but no wheezing, no rhonchi or rales auscultated. No significant sputum production. She continues on vancomycin and meropenem. She has been afebrile. She has been on room air, she has been up ambulating in the room and in the hallway without any significant respiratory distress. From pulmonary standpoint she is stable for discharge home today on 7 day course of Omnicef 300 mg by mouth twice a day and prednisone 40 mg daily by mouth until seen in the office by Dr. Dougherty, continue her home inhalers and treatments for her asthma. She has an appointment with Dr. Dougherty on Thursday. Objective - Vital Signs Vital signs: Vital Signs Temp 97.2 F L 01/07/17 07:00 Pulse 84 01/07/17 08:38 Resp 18 01/07/17 07:00 BP 154/72 01/07/17 07:00 Pulse Ox 94 L 01/07/17 07:00 Intake & Output 01/06/17 01/07/17 01/07/17 18:59 06:59 18:59 Other: Voiding Method Toilet # Voids 1 1 - Exam No acute distress, oriented 3. HEENT examination is grossly unremarkable. Mucous membranes are moist. No oral lesions. Neck supple. Full range of motion. No adenopathy or thyromegaly. Neck veins are flat. Cardiovascular examination reveals regular rhythm rate. S1-S2 normal. No S3- S4 or murmur. Lungs sounds are coarse. There is prolongation on forced maneuver. Abdomen soft bowel sounds are heard. No masses or tenderness. Extremities are intact. No cyanosis clubbing or edema. Skin is without rash. Neurologic examination is nonfocal. - Labs CBC & Chem 7: 01/05/17 10:41 01/07/17 07:42 Labs: Abnormal Lab Results - Last 24 Hours (Table) 01/06/17 01/06/17 01/07/17 Range/Units 16:59 20:27 07:28 Chloride (98-107) mmol/L Glucose (74-99) mg/dL POC Glucose (mg/dL) 122 H 129 H 101 H (75-99) mg/dL 01/07/17 01/07/17 Range/Units 07:42 11:55 Chloride 109 H (98-107) mmol/L Glucose 107 H (74-99) mg/dL POC Glucose (mg/dL) 103 H (75-99) mg/dL Microbiology - Last 24 Hours (Table) 01/05/17 13:50 Urine Culture - Final Urine,Clean Catch 01/05/17 10:41 Blood Culture - Preliminary Blood No Growth after 24 hours Assessment and Plan Plan: Assessment: #1. Acute exacerbation of severe persistent asthma with failed outpatient treatment, improved #2. Acute tracheobronchitis #3. History of multiple sclerosis #4. Optic neuritis #5. Adrenal insufficiency #6. ALLERGIC rhinitis due to mold #7. Sleep apnea Plan: Patient continues to improve, able to tolerate increased activity, ambulation without any significant rest or distress. Lung sounds remain coarse, but overall less chest tightness and improvement in her pulmonary status noted. Patient is stable for discharge home from pulmonary standpoint, on Omnicef 300 mg by mouth twice a day for 7 days, prednisone 40 mg daily until seen in the office by Dr. Dougherty. Continue all current inhalers and treatments for asthma. I performed a history & physical examination of the patient and discussed their management with my nurse practitioner, Vibha Spivey. I reviewed the nurse practitioner's note and agree with the documented findings and plan of care. Lung sounds are coarse, but no wheezes, no rhonchi. Continue with same medical treatment. The findings and the impression was discussed with the patient. I attest to the documentation by the nurse practitioner. Time with Patient: Less than 30
[2017-01-07] MEDS: CHOLECALCIFEROL 1,000 UNIT TAB PO SCH (13:07)
--- NOTE | 2017-01-07 20:39 | DS ---
DISCHARGE SUMMARY FINAL DIAGNOSES: 1. Acute severe persistent bronchial asthma exacerbation from acute tracheobronchitis. 2. Chronic fibromyalgia. 3. Gastroesophageal reflux disease. 4. Autoimmune liver disease. 5. Primary osteoarthritis in multiple joints. 6. Multiple sclerosis, stable. 7. Chronic allergic rhinitis. 8. Depression and anxiety not otherwise specified. 9. Postural orthostatic tachycardia syndrome. 10.Chronic optic neuritis, stable. 11.Chronic adrenal insufficiency. CONSULTATION: Dr. Dougherty from Pulmonary. HOSPITAL COURSE: This is a pleasant 51-year-old patient admitted by Dr. Dougherty who has multiple medical problems. About a week ago she underwent a bronchoscopy with lavage by Dr. Dougherty. The cultures came back to be negative. The patient presented with asthma exacerbation and maybe she had a bronchitis element. Initially she was put on IV vancomycin and meropenem by Dr. Dougherty. Doing much better by the time of discharge PHYSICAL EXAMINATION: LUNGS: Improved air entry. CARDIOVASCULAR: First and second sounds normal. Care was discussed with the patient. She is happy to go home. Discussed with Dr. Dougherty. The patient's blood cultures were negative. DISCHARGE MEDICATIONS: 1. Ventolin 2 puffs q.i.d. p.r.n. 2. Singulair 10 mg at bedtime. 3. Dilaudid 4 mg q.4 p.r.n. 4. Klonopin 0.5 mg p.o. t.i.d. p.r.n. 5. Tecfidera 240 mg p.o. b.i.d. 6. Breo Ellipta 200/25 one puff daily. 7. Vistaril 100 mg q.4 p.r.n. 8. Xeomin injection IM q.90 days. 9. Phenergan with codeine 5 mL p.o. q.12 p.r.n. 10.Asmanex 2 puffs daily. 11.Cymbalta 60 mg p.o. daily. 12.Questran 4 grams p.o. b.i.d. 13.Nexium 40 mg p.o. daily. 14.Iron 325 p.o. with supper. 15.Renetta D 1 tablet p.o. daily. 16.Diflucan 200 mg p.o. daily p.r.n. 17.Flonase. 18.Antivert 12.5 p.o. q.8 p.r.n. 19.Mobic 15 mg p.o. daily. 20.Robaxin 500 mg p.o. t.i.d. p.r.n. 21.Remeron 15 mg p.o. t.i.d. p.r.n. 22.Compazine 10 mg p.o. q.8 p.r.n. 23.Vitamin D3, 12,000 units p.o. daily. 24.Trazodone 150 mg p.o. at bedtime. 25.Omnicef 300 mg q.12 for 7 days. 26.Prednisone taper. DISCHARGE INSTRUCTIONS: Follow up with Dr. Dougherty on 01/12/17. MMODL / IJN: [id number] /
== END 2017-01-07 15:14 | disposition home or self-care (01) | DRG 202 ==
LOC: 4MS4W 09:48
PROVIDERS: ADMIT Hospitalist; ATTEND Hospitalist
DX: J45.51 Severe persistent asthma with (acute) exacerbation (principal); J44.0 Chronic obstructive pulmonary disease with (acute) lower respiratory infection; E27.40 Unspecified adrenocortical insufficiency; H46.9 Unspecified optic neuritis; F32.9 Major depressive disorder, single episode, unspecified; K76.89 Other specified diseases of liver; F41.9 Anxiety disorder, unspecified; G25.81 Restless legs syndrome; G35 Multiple sclerosis; G47.30 Sleep apnea, unspecified; G89.4 Chronic pain syndrome; I49.8 Other specified cardiac arrhythmias; J20.9 Acute bronchitis, unspecified; J31.0 Chronic rhinitis; K21.9 Gastro-esophageal reflux disease without esophagitis; M15.9 Polyosteoarthritis, unspecified; M79.7 Fibromyalgia; R09.02 Hypoxemia; D64.9 Anemia, unspecified; G43.909 Migraine, unspecified, not intractable, without status migrainosus; Z79.899 Other long term (current) drug therapy; Z96.651 Presence of right artificial knee joint; Z96.643 Presence of artificial hip joint, bilateral; Z82.49 Family history of ischemic heart disease and other diseases of the circulatory system
CPT/HCPCS: 71020; 80048; 80053; 80202; 81003; 83036; 85025; 87040; 87086; 94640; 96365; 96367; 96375

== ENCOUNTER → 2017-03-16 | Outpatient (CLI) | payer MEDICARE ==
--- NOTE | 2017-03-16 15:19 | CT ---
EXAMINATION TYPE: CT soft tissue neck w con DATE OF EXAM: 03/16/2017 2:53 PM COMPARISON: NONE HISTORY: Dysphagia, pain and tenderness in neck and swelling. CT DLP: 523.70 mGycm Automated exposure control for dose reduction was used. CONTRAST: CT scan of the neck is performed following with IV Contrast, patient injected with 100 mL of Omnipaqu e 300. Axial images are obtained, coronal and sagittal reformatted images are reviewed. FINDINGS: Airway: No gross abnormality seen. Parotid/submandibular glands: Submandibular gland on the right appears atrophic as compared to the l eft. Carotid/Vascular Structures: Patent common, internal and external carotid arteries. Patent vertebral arteries. Jugular veins are patent. Osseous Structures: Thoracic scoliosis thought present in the upper thoracic spine convex right. Ther e is a port present over the right chest, catheter courses towards the superior vena cava. Cervical v ertebral bodies show preserved height, alignment, and bone mineralization. Disc spaces are maintained . Other: Minimal inflammatory change present in the sphenoid sinus. IMPRESSION: Atrophic right sublingual gland. No abnormality evident to account for patient's symptom s. Mild sinus disease.
== END | disposition home or self-care (01) ==
LOC: RADPROMAIN 14:11
PROVIDERS: ATTEND Internal Medicine Critical Care Medicine
DX: K11.0 Atrophy of salivary gland (principal); R13.10 Dysphagia, unspecified
CPT/HCPCS: 70491; Q9967; J1642

== ENCOUNTER 2017-03-26 11:51 | Day surgery (SDC) | payer MEDICARE ==
[~2017-03-26 11:51] MED LIST changes: -ATROPINE SULFATE 0.4 MG/ML 1 ML VIAL IM ONE; -LACTATED RINGERS 1,000 ML IV SCH; -LIDOCAINE 1% 20 ML VIAL (10MG/ML) FOR IV START INTRADERMA PRN; -LIDOCAINE 2% (PF) 20 MG/ML 10 ML AMP INHALATION ONE; +LIDOCAINE 2% (PF) 20 MG/ML 2 ML AMP INHALATION ONE
[2017-03-26 12:30] VITALS: TEMP 97.7
[2017-03-26 12:42] LABS: Glucose,Whole Blood 93 mg/dL (75-99)
[2017-03-26] MEDS ORDERED: fentaNYL (PF) 50 MCG/ML 2 ML AMP ONE (13:41)
[2017-03-26] MEDS ORDERED: PROPOFOL 10 MG/ML 20 ML VIAL IV ONE (13:41)
[2017-03-26] MEDS ORDERED: LIDOCAINE 1% INJ 10MG/ML (20 ML MDV) ONE (13:41)
[2017-03-26] MEDS ORDERED: GLYCOPYRROLATE 0.2 MG/ML 2 ML VIAL ONE (13:41)
[2017-03-26] MEDS ORDERED: LIDOCAINE 2% INJ 20 MG/ML INTRATRACH ONE (13:56)
[2017-03-26 14:09] VITALS: RESP 16
--- NOTE | 2017-03-26 14:43 | PCN ---
PROCEDURE NOTE PROCEDURE: Bronchoscopy and bronchial washings. PREOPERATIVE DIAGNOSIS: Severe persistent asthma and secretions, difficult to clear on her own. POSTOPERATIVE DIAGNOSIS: Severe persistent asthma and secretions, difficult to clear on her own. ANESTHESIA USED: IV conscious sedation. Please refer to the TOP TILE DECORATOR documentation. PROCEDURE DESCRIPTION: Patient was placed in the supine position, O2 was applied via Ventimask, and we monitored her O2 saturation continuously, blood pressure was intermittently monitored, and cardiac rhythm was continuously monitored. After adequate IV conscious sedation, the right naris was anesthetized with the lidocaine, then the bronchoscope was advanced through the right naris down to the area of the vocal cords. Lidocaine was applied over the vocal cords, and these were noted to be very patent. Bronchoscope was advanced further down, and thorough examination was done of the trachea, pastor, right upper lobe, right middle lobe, right lower lobe, left upper lobe, lingula and left lower lobe. There was clearly evidence of significant purulent secretions noted throughout the whole bronchial tree. These were washed and suctioned from the different lobes including the right upper lobe, right middle lobe, right lower lobe, also left upper lobe, lingula and left lower lobe. Secretions were sent for different diagnostic studies and patient tolerated the procedure well, no evidence of any complications. MMODL / IJN: [id number] /
[2017-03-26 15:37] VITALS: BP 109/65; PULSE 97
[2017-03-26 19:55] LABS: Appearance,BF Cloudy; Color,BF Colorless; Nucleated Cells, Body Fluid 1480 /uL; RBC, Body Fluid 100 /uL
[2017-03-26 19:59] LABS: Mononuclear WBC,Body Fluid 66 %; Polynuclear WBC,Body Fluid 34 %; Total Cells Counted,Body Fluid 100
== END 2017-03-26 14:58 | disposition home or self-care (01) ==
LOC: ORWHC2ENDO 11:51
PROVIDERS: ATTEND Internal Medicine
DX: J44.1 Chronic obstructive pulmonary disease with (acute) exacerbation (principal); J45.901 Unspecified asthma with (acute) exacerbation; K75.4 Autoimmune hepatitis; E03.9 Hypothyroidism, unspecified; I47.1 Supraventricular tachycardia; G47.33 Obstructive sleep apnea (adult) (pediatric); M79.7 Fibromyalgia; Z99.89 Dependence on other enabling machines and devices; E27.40 Unspecified adrenocortical insufficiency; K21.9 Gastro-esophageal reflux disease without esophagitis; G35 Multiple sclerosis; G89.29 Other chronic pain; Z79.2 Long term (current) use of antibiotics; Z79.1 Long term (current) use of non-steroidal anti-inflammatories (NSAID); Z79.51 Long term (current) use of inhaled steroids; Z79.52 Long term (current) use of systemic steroids; Z79.899 Other long term (current) drug therapy; Z88.6 Allergy status to analgesic agent; Z88.1 Allergy status to other antibiotic agents; Z91.040 Latex allergy status; Z88.0 Allergy status to penicillin; Z88.2 Allergy status to sulfonamides; Z91.018 Allergy to other foods; Z91.09 Other allergy status, other than to drugs and biological substances
CPT/HCPCS: 94640; 87798 ×3; 87496; 87498; 87529; 89050; 87252; 87502; 87634; 87070; 87205; 87116; 87102; 87206; 31624; J2001 ×3; J3010; J2704; 31645

== ENCOUNTER 2017-03-31 17:10 | Observation (INO) | payer MEDICARE ==
[2017-03-31] MEDS ORDERED: IPRATROPIUM-ALBUTEROL 3 ML NEB INHALATION STA (18:21)
[2017-03-31] MEDS ORDERED: methylPREDNISolone SOD SUCCI 125 MG/2 ML VIAL IV STA (18:21)
[2017-03-31] MEDS ORDERED: LEVOFLOXACIN 500MG-D5W PMX 500 MG in DEXTROSE/WATER 1 100ML.BAG IVPB STA (18:49)
[2017-03-31] MEDS ORDERED: OSELTAMIVIR 75 MG CAP PO STA (18:51)
[2017-03-31 19:18] LABS: Basophils % (A) 1 %; Eosinophils # (A) 0.1 k/uL (0-0.7); Eosinophils % (A) 1 %; HCT 38.9 % (34.0-46.0); HGB 12.4 gm/dL (11.4-16.0); Lymphocytes # (A) 1.4 k/uL (1.0-4.8); Lymphocytes % (A) 31 %; MCH 30.8 pg (25.0-35.0); MCV 96.1 fL (80.0-100.0); Mean Platelet Volume 6.6; Monocytes # (A) 0.4 k/uL (0-1.0); Monocytes % (A) 8 %; Neutrophils # (A) 2.6 k/uL (1.3-7.7); Neutrophils % (A) 56 %; Platelet Count 331 k/uL (150-450); RBC 4.05 m/uL (3.80-5.40); RDW 13.9 % (11.5-15.5); WBC 4.7 k/uL (3.8-10.6)
--- NOTE | 2017-03-31 19:22 | ED ---
General Adult HPI - General Chief complaint: Recheck/Abnormal Lab/Rx Stated complaint: Sob/congestion Time Seen by Provider: 03/31/17 18:11 Source: patient Mode of arrival: ambulatory Limitations: no limitations - History of Present Illness Initial comments: This is a 51-year-old female with a history of COPD and severe asthma who presents emergency department for cough, fevers, generalized body aches, and general the lays. The patient recently had a bronchoscopy done where secretions were sent to the lab and she was found to have influenza B. She's been on Tamiflu for the last 4 days however states that her symptoms have gradually worsened. She is also been on Levaquin as an outpatient. She went to Dr. uLcia's office earlier today and was evaluated there with a chest x-ray that was unremarkable for pneumonia however she was persistently wheezy and she was advised come emergency department for admission for IV medications. The patient denies any nausea or vomiting. She states that she's had a couple episodes of diarrhea that she attributes to the Tamiflu. She denies any chest pain. No other acute complaints. - Related Data Home Medications Medication Instructions Recorded Confirmed Montelukast [Singulair] 10 mg PO HS 07/14/13 03/31/17 HYDROmorphone [Dilaudid] 4 mg PO Q4-6H PRN 08/03/13 03/31/17 clonazePAM [KlonoPIN] 0.5 mg PO TID PRN 01/25/15 03/31/17 Fluticasone/Vilanterol [Breo 1 puff INHALATION RT-DAILY 11/19/15 03/31/17 Ellipta 200-25 Mcg INH] hydrOXYzine PAMOATE [Vistaril] 100 mg PO Q4-6H PRN 11/19/15 03/31/17 Xeomin Inj 1 injection IM Q90D 12/11/15 03/31/17 Promethaz-Cod 6.25-10 mg/5 ml 5 ml PO Q4-6H PRN 03/06/16 03/31/17 [Phenergan with Codeine] Mometasone Inhalr 220 Mcg/Puff 2 puff INHALATION RT-DAILY 03/07/16 03/31/17 [Asmanex] DULoxetine HCL [Cymbalta] 60 mg PO DAILY 11/13/16 03/31/17 Cholestyramine (with Sugar) 4 gm PO BID 01/05/17 03/31/17 [Questran Packet] Esomeprazole Magnesium [NexIUM] 40 mg PO DAILY 01/05/17 03/31/17 Fexofenadine/Pseudoephedrine 1 tab PO DAILY 01/05/17 03/31/17 [Renetta-D 24 Hour Tablet] Fluconazole [Diflucan] 200 mg PO DAILY PRN 01/05/17 03/31/17 Fluticasone Nasal [place] [Flonase 2 puff NASAL BID 01/05/17 03/31/17 Nasal [place]] Meclizine [Antivert] 12.5 mg PO Q8HR PRN 01/05/17 03/31/17 Meloxicam [Mobic] 15 mg PO DAILY 01/05/17 03/31/17 Prochlorperazine [Compazine] 10 mg PO Q8H PRN 01/05/17 03/31/17 Vitamin D3 12,000iu 12,000 unit PO DAILY 01/05/17 03/31/17 traZODone HCL 150 mg PO HS 01/05/17 03/31/17 Levofloxacin [Levaquin] 500 mg PO DAILY 03/26/17 03/31/17 Hydrocodone/Chlorphen P-Stirex 5 ml PO Q12HR PRN 03/31/17 03/31/17 [Tussionex] Hydrocortisone [Cortef] 5 mg PO DAILY 03/31/17 03/31/17 Oseltamivir [Tamiflu] 75 mg PO Q12HR 03/31/17 03/31/17 Pramipexole [Mirapex] 2 mg PO TID 03/31/17 03/31/17 Allergies Allergy/AdvReac Type Severity Reaction Status Date / Time Sulfa (Sulfonamide Allergy Severe Rash/Hives Verified 03/31/17 18:49 Antibiotics) adhesive Allergy Rash/Hives Verified 03/31/17 18:49 alcohol Allergy Rash/Hives Verified 03/31/17 18:49 [From Mastisol Adhesive] amoxicillin Allergy Rash/Hives Verified 03/31/17 18:49 glatiramer (copolymer 1) Allergy Unknown Verified 03/31/17 18:49 [From Copaxone] gum mastic Allergy Rash/Hives Verified 03/31/17 18:49 [From Mastisol Adhesive] interferon beta-1b Allergy Unknown Verified 03/31/17 18:49 [From Betaseron] methyl salicylate Allergy Rash/Hives Verified 03/31/17 18:49 [From Mastisol Adhesive] storax Allergy Rash/Hives Verified 03/31/17 18:49 [From Mastisol Adhesive] sulfamethoxazole Allergy Rash/Hives Verified 03/31/17 18:49 [From Bactrim] trimethoprim [From Bactrim] Allergy Rash/Hives Verified 03/31/17 18:49 bupropion HCl AdvReac Severe Rash/Hives Verified 03/31/17 18:49 [From Wellbutrin] gluten AdvReac Severe Nausea & Verified 03/31/17 18:49 Vomiting & Diarrhea interferon beta AdvReac Severe Rash/Hives Verified 03/31/17 18:49 interferon beta-1a AdvReac Severe Rash/Hives Verified 03/31/17 18:49 [From Avonex] lamotrigine [From Lamictal] AdvReac Severe Rash/Hives Verified 03/31/17 18:49 milk AdvReac Severe Nausea & Verified 03/31/17 18:49 Vomiting oxaprozin [From Daypro] AdvReac Severe Rash/Hives Verified 03/31/17 18:49 Penicillins AdvReac Severe Rash/Hives Verified 03/31/17 18:49 soy AdvReac Severe Nausea & Verified 03/31/17 18:49 Vomiting & Diarrhea azithromycin AdvReac Unknown Rash/Hives, Verified 03/31/17 18:49 RED SKIN, ITCHING doxycycline AdvReac Unknown Rash/Hives Verified 03/31/17 18:49 latex AdvReac Unknown Blisters Verified 03/31/17 18:49 albumin human AdvReac Rash/Hives Verified 03/31/17 18:49 [From Rebif (with albumin)] dicyclomine [From Bentyl] AdvReac Rash/Hives Verified 03/31/17 18:49 duloxetine [From Cymbalta] AdvReac Unknown Verified 03/31/17 18:49 wheat AdvReac Nausea & Verified 03/31/17 18:49 Vomiting & Diarrhea cow's milk Allergy Unknown Uncoded 03/31/17 17:58 surgical yusra Allergy Rash/Hives Uncoded 03/31/17 17:58 STERISTRIPS AdvReac Severe BLISTERS Uncoded 03/31/17 17:58 TO SKIN Review of Systems ROS Statement: Those systems with pertinent positive or pertinent negative responses have been documented in the HPI. ROS Other: All systems not noted in ROS Statement are negative. Past Medical History Past Medical History: Asthma, COPD, Fibromyalgia, GERD/Reflux, Neurologic Disorder, Osteoarthritis (OA), Sleep Apnea/CPAP/BIPAP, Supraventricular Tachycardia (SVT) Additional Past Medical History / Comment(s): multiple sclerosis,optic neuritis, anemia,migraines,adrenal insufficiency,auto immune hepatitis, uses c-pap machine , avascular necrosis, uses cane and has knee brace. History of Any Multi-Drug Resistant Organisms: None Reported Past Surgical History: Bowel Resection, Cholecystectomy, Heart Catheterization, Hysterectomy, Joint Replacement, Orthopedic Surgery, Tonsillectomy Additional Past Surgical History / Comment(s): sinus surgery,blepharoplasty jayleen eyes,POWER PORT -IMPLANTABLE PORT-under right clavicle-bowel adhesions, rt knee replacement , 8 INCH BOWEL REMOVED, jayleen total hip replacement.03-07-16 BRONCHOSCOPY Past Anesthesia/Blood Transfusion Reactions: Blood Transfusion Reaction Additional Past Anesthesia/Blood Transfusion Reaction / Comment(s): HX OF BLOOD TRANSFUSION : HAS CARD STATING K ANTIBODY AFTER RECEIVING A TRANSFUSION Past Psychological History: Anxiety, Depression Smoking Status: Never smoker Past Alcohol Use History: None Reported Past Drug Use History: None Reported - Past Family History Mother Family Medical History: Hypertension Father Family Medical History: COPD, Hypertension Additional Family Medical History / Comment(s): Father at the age of 69 yrs from emphysema Brother(s) Additional Family Medical History / Comment(s): Brother-DC X2 General Exam - General Exam Comments Initial Comments: Constitutional: Awake alert Appears comfortable Head: Normocephalic atraumatic Eyes: no conjunctival injection No scleral icterus EOMI Neck: No JVD Supple Heart: Regular rate rhythm normal S1-S2 no murmurs Lungs: Diffuse inspiratory and expiratory wheezing, no signs of respiratory distress Abdomen: Soft nondistended nontender Extremities: Non edematous DP pulses intact Radial pulses intact Neuro: A&Ox3 No focal neurologic deficits Psych: Appropriate mood and affect Limitations: no limitations Course Vital Signs 03/31/17 03/31/17 03/31/17 17:55 18:50 18:59 Temperature 98.7 F Pulse Rate 102 H 96 95 Respiratory 18 Rate Blood Pressure 120/79 O2 Sat by Pulse 98 Oximetry 03/31/17 19:23 Temperature 97.6 F Pulse Rate 91 Respiratory 18 Rate Blood Pressure 139/78 O2 Sat by Pulse 98 Oximetry - Reevaluation(s) Reevaluation #1: 03/31/17 19:[address] Lucia who recommended continuing with IV Levaquin until he could evaluate the patient tomorrow. We'll continue with steroids and breathing treatments. Blood work was drawn and repeat chest x-ray was done. I spoke with the patient and [facility]. Medical Decision Making - Medical Decision Making This is a 51-year-old female who presents emergency department for shortness of breath, cough, generalized fatigue and fevers. The patient is influenza B- positive. She was continued on Tamiflu, given a breathing treatment, and continued on steroids and Levaquin. was contacted who recommended admission to the hospital so that he can evaluate the patient further. The patient has been treated for the last 4 days and has continued to worsen. Will place in observation at this time. Dr. Carias accepts the admission. Disposition Clinical Impression: COPD exacerbation, Influenza Disposition: ADMITTED IP TO THIS HOSP Condition: Stable
[2017-03-31 19:30] LABS: ALT 31 U/L (9-52); AST 18 U/L (14-36); Albumin 3.8 g/dL (3.5-5.0); Alkaline Phosphatase 90 U/L (38-126); Anion Gap 8 mmol/L; Blood Urea Nitrogen 11 mg/dL (7-17); Calcium 8.8 mg/dL (8.4-10.2); Carbon Dioxide 28 mmol/L (22-30); Chloride 106 mmol/L (98-107); Glucose 84 mg/dL (74-99); Potassium 3.8 mmol/L (3.5-5.1); Sodium 142 mmol/L (137-145); Total Bilirubin 0.2 mg/dL (0.2-1.3); Total Protein 6.5 g/dL (6.3-8.2)
--- NOTE | 2017-03-31 19:44 | XR ---
EXAMINATION: XR chest 2V DATE AND TIME: 03/31/2017 7:25 PM ORDERING PROVIDER: Juan Jose Stroud DO CLINICAL INDICATION: Cough TECHNIQUE: PA and lateral COMPARISON: None. DESCRIPTION: Right IJ port catheter superimposed over the cavoatrial junction. The lungs are clear. T he pleural spaces are negative. The cardiac silhouette is not enlarged. The mediastinal and pleural silhouettes are unremarkable. The skeletal structures are intact without focal findings. The soft tissues are unremarkable. IMPRESSION: NO ACUTE PROCESS.
[2017-03-31] MEDS ORDERED: NALOXONE 0.4 MG/ML 1 ML VIAL IV PRN (21:25)
[2017-03-31] MEDS ORDERED: oxyCODONE-APAP 5-325MG 1 EACH TAB PO PRN (21:25)
[2017-03-31] MEDS: CHOLESTYRAMINE (WITH SUGAR) 4 GM PACKET PO SCH (21:35)
[2017-03-31] MEDS: MONTELUKAST 10 MG TAB PO SCH (21:36)
[2017-03-31] MEDS: traZODone HCL 50 MG TAB PO SCH (21:36)
[2017-03-31] MEDS: FLUTICASONE 50MCG/SPRAY NASAL 16GM NASAL SCH (22:28)
[2017-03-31] MEDS: clonazePAM 0.5 MG TAB PO PRN (22:29)
--- NOTE | 2017-03-31 23:28 | P.HPIM ---
History of Present Illness H&P Date: 03/31/17 Chief Complaint: SOB wheezing 51 year old female with complex past medical history including Asthma, MS. Patient was recently diagnosed with flu B, and has been on tamiflu for 4 days, along with levoflox PO, however, today she noticed progressive worsening of SOB , along with worsening productive cough, she describes severe limitation in her activity over the past few days due to worsening SOB. She visited her lung doctor today and he suggested to go to the hospital for IV medications to her with her acute exacerbation which is thought to be due to flu with failed outpatient therapy. otherwise patient denies any fever, chills, chest pain, nausea or vomiting. patient has never been intubated, does not use home oxygen, denies any smoking or smoke exposure. Review of Systems Constitutional: Patient denies fever, denies chills, denies night sweating, denies significant weight changes Eyes: Patient denies visual changes, denies eye pain ENT: Patient denies ear pain, reports rhinorrhea and sore throat Cardiovascular: Patient denies chest pain, denies exertional dyspnea, denies peripheral leg edema, denies orthopnea, denies paroxysmal nocturnal dyspnea Respiratory: as per HPI Gastrointestinal: Patient denies diarrhea, denies constipation, denies nausea , denies vomiting, denies abdominal pain Genitourinary: Patient denies dysuria, denies hematuria, denies changes in urinary habits, denies genital lesions Musculoskeletal: Patient reports generalized body aches, denies joint pain Psychiatric: Patient denies changes in mood or memory, denies suicidal ideation, denies anxiety Endocrine: Patient denies heat intolerance, denies cold intolerance, denies excessive thirst, denies polyuria Neurological: Patient denies focal neurologic deficits, denies weakness, denies numbness, denies tingling Hem/Lymphatic: Patient denies bleeding tendency, denies bruising, denies swollen lymph glands Allergic/Immun: Patient denies recent allergic reactions Skin: Patient denies rashes, denies pruritis, denies ulcers Past Medical History Past Medical History: Asthma, COPD, Fibromyalgia, GERD/Reflux, Neurologic Disorder, Osteoarthritis (OA), Sleep Apnea/CPAP/BIPAP, Supraventricular Tachycardia (SVT) Additional Past Medical History / Comment(s): multiple sclerosis,optic neuritis, anemia,migraines,adrenal insufficiency,auto immune hepatitis, uses c-pap machine , avascular necrosis, uses cane and has knee brace. History of Any Multi-Drug Resistant Organisms: None Reported Past Surgical History: Bowel Resection, Cholecystectomy, Heart Catheterization, Hysterectomy, Joint Replacement, Orthopedic Surgery, Tonsillectomy Additional Past Surgical History / Comment(s): sinus surgery,blepharoplasty jayleen eyes,POWER PORT -IMPLANTABLE PORT-under right clavicle-bowel adhesions, rt knee replacement , 8 INCH BOWEL REMOVED, jayleen total hip replacement.03-07-16 BRONCHOSCOPY Past Anesthesia/Blood Transfusion Reactions: Blood Transfusion Reaction Additional Past Anesthesia/Blood Transfusion Reaction / Comment(s): HX OF BLOOD TRANSFUSION : HAS CARD STATING K ANTIBODY AFTER RECEIVING A TRANSFUSION Past Psychological History: Anxiety, Depression Smoking Status: Never smoker Past Alcohol Use History: None Reported Past Drug Use History: None Reported - Past Family History Mother Family Medical History: Hypertension Father Family Medical History: COPD, Hypertension Additional Family Medical History / Comment(s): Father at the age of 69 yrs from emphysema Brother(s) Additional Family Medical History / Comment(s): Brother-ID X2 Medications and Allergies Home Medications Medication Instructions Recorded Confirmed Type Montelukast [Singulair] 10 mg PO HS 07/14/13 03/31/17 History HYDROmorphone [Dilaudid] 4 mg PO Q4-6H PRN 08/03/13 03/31/17 History clonazePAM [KlonoPIN] 0.5 mg PO TID PRN 01/25/15 03/31/17 History Fluticasone/Vilanterol [Breo 1 puff INHALATION RT-DAILY 11/19/15 03/31/17 History Ellipta 200-25 Mcg INH] hydrOXYzine PAMOATE [Vistaril] 100 mg PO Q4-6H PRN 11/19/15 03/31/17 History Xeomin Inj 1 injection IM Q90D 12/11/15 03/31/17 History Promethaz-Cod 6.25-10 mg/5 ml 5 ml PO Q4-6H PRN 03/06/16 03/31/17 History [Phenergan with Codeine] Mometasone Inhalr 220 Mcg/Puff 2 puff INHALATION RT-DAILY 03/07/16 03/31/17 History [Asmanex] DULoxetine HCL [Cymbalta] 60 mg PO DAILY 11/13/16 03/31/17 History Cholestyramine (with Sugar) 4 gm PO BID 01/05/17 03/31/17 History [Questran Packet] Esomeprazole Magnesium [NexIUM] 40 mg PO DAILY 01/05/17 03/31/17 History Fexofenadine/Pseudoephedrine 1 tab PO DAILY 01/05/17 03/31/17 History [Renetta-D 24 Hour Tablet] Fluconazole [Diflucan] 200 mg PO DAILY PRN 01/05/17 03/31/17 History Fluticasone Nasal [place] [Flonase 2 puff NASAL BID 01/05/17 03/31/17 History Nasal [place]] Meclizine [Antivert] 12.5 mg PO Q8HR PRN 01/05/17 03/31/17 History Meloxicam [Mobic] 15 mg PO DAILY 01/05/17 03/31/17 History Prochlorperazine [Compazine] 10 mg PO Q8H PRN 01/05/17 03/31/17 History Vitamin D3 12,000iu 12,000 unit PO DAILY 01/05/17 03/31/17 History traZODone HCL 150 mg PO HS 01/05/17 03/31/17 History Levofloxacin [Levaquin] 500 mg PO DAILY 03/26/17 03/31/17 History Hydrocodone/Chlorphen P-Stirex 5 ml PO Q12HR PRN 03/31/17 03/31/17 History [Tussionex] Hydrocortisone [Cortef] 5 mg PO DAILY 03/31/17 03/31/17 History Oseltamivir [Tamiflu] 75 mg PO Q12HR 03/31/17 03/31/17 History Pramipexole [Mirapex] 2 mg PO TID 03/31/17 03/31/17 History Allergies Allergy/AdvReac Type Severity Reaction Status Date / Time Sulfa (Sulfonamide Allergy Severe Rash/Hives Verified 03/31/17 18:49 Antibiotics) adhesive Allergy Rash/Hives Verified 03/31/17 18:49 alcohol Allergy Rash/Hives Verified 03/31/17 18:49 [From Mastisol Adhesive] amoxicillin Allergy Rash/Hives Verified 03/31/17 18:49 glatiramer (copolymer 1) Allergy Unknown Verified 03/31/17 18:49 [From Copaxone] gum mastic Allergy Rash/Hives Verified 03/31/17 18:49 [From Mastisol Adhesive] interferon beta-1b Allergy Unknown Verified 03/31/17 18:49 [From Betaseron] methyl salicylate Allergy Rash/Hives Verified 03/31/17 18:49 [From Mastisol Adhesive] storax Allergy Rash/Hives Verified 03/31/17 18:49 [From Mastisol Adhesive] sulfamethoxazole Allergy Rash/Hives Verified 03/31/17 18:49 [From Bactrim] trimethoprim [From Bactrim] Allergy Rash/Hives Verified 03/31/17 18:49 bupropion HCl AdvReac Severe Rash/Hives Verified 03/31/17 18:49 [From Wellbutrin] gluten AdvReac Severe Nausea & Verified 03/31/17 18:49 Vomiting & Diarrhea interferon beta AdvReac Severe Rash/Hives Verified 03/31/17 18:49 interferon beta-1a AdvReac Severe Rash/Hives Verified 03/31/17 18:49 [From Avonex] lamotrigine [From Lamictal] AdvReac Severe Rash/Hives Verified 03/31/17 18:49 milk AdvReac Severe Nausea & Verified 03/31/17 18:49 Vomiting oxaprozin [From Daypro] AdvReac Severe Rash/Hives Verified 03/31/17 18:49 Penicillins AdvReac Severe Rash/Hives Verified 03/31/17 18:49 soy AdvReac Severe Nausea & Verified 03/31/17 18:49 Vomiting & Diarrhea azithromycin AdvReac Unknown Rash/Hives, Verified 03/31/17 18:49 RED SKIN, ITCHING doxycycline AdvReac Unknown Rash/Hives Verified 03/31/17 18:49 latex AdvReac Unknown Blisters Verified 03/31/17 18:49 albumin human AdvReac Rash/Hives Verified 03/31/17 18:49 [From Rebif (with albumin)] dicyclomine [From Bentyl] AdvReac Rash/Hives Verified 03/31/17 18:49 duloxetine [From Cymbalta] AdvReac Unknown Verified 03/31/17 18:49 wheat AdvReac Nausea & Verified 03/31/17 18:49 Vomiting & Diarrhea cow's milk Allergy Unknown Uncoded 03/31/17 17:58 surgical yusra Allergy Rash/Hives Uncoded 03/31/17 17:58 STERISTRIPS AdvReac Severe BLISTERS Uncoded 03/31/17 17:58 TO SKIN Physical Exam Vitals: Vital Signs Temp Pulse Resp BP Pulse Ox 03/31/17 21:00 97.8 F 96 18 135/87 99 03/31/17 20:00 18 03/31/17 19:23 97.6 F 91 18 139/78 98 03/31/17 18:59 95 03/31/17 18:50 96 03/31/17 17:55 98.7 F 102 H 18 120/79 98 Intake and Output 03/31/17 03/31/17 03/31/17 06:59 14:59 22:59 Intake Total 100 Balance 100 Intake: Amount of Fluid Infused ( 100 ml) Other: Weight 99.79 kg Patient Weight 04/01/17 06:59 Weight 99.79 kg Constitutional: No acute distress, conversant, pleasant Eyes: Anicteric sclerae, moist conjunctiva, no lid-lag Pupils equal round reactive to light ENMT: NC/AT Oropharynx clear, no erythema, exudates Neck: Supple, FROM, no masses, or JVD No carotid bruits No thyromegaly Lungs: prolonged expiratory phase, with expiratory wheezes, Clear to percussion Normal respiratory effort, no accessory muscle use Cardiovascular: Heart regular in rate and rhythm, No murmurs, gallops, or rubs No peripheral edema Abdominal: Soft Nontender, no guarding, rebound or rigidity Abdomen moving with respiration Normoactive bowel sounds No hepatomegaly, No splenomegaly No palpable mass No abdominal wall hernia noted Skin: Normal temperature, tone, texture, turgor No induration No subcutaneous nodules No rash, lesions No ulcers Extremities: No digital cyanosis No clubbing Pedal pulses intact and symmetrical Radial pulses intact and symmetrical No calf tenderness Psychiatric: Alert and oriented to person, place and time Appropriate affect fair judgment of the patient Neuro Muscles Strength 5/5 in all 4 extremities Sensation to light touch grossly present throughout Cranial nerves II-XII grossly intact No focal sensory deficits Lymphatics: no palpable cervical or supraclavicular , or inguinal lymph nodes although without . He Results CBC & Chem 7: 03/31/17 19:03 03/31/17 19:03 Labs: Abnormal Lab Results - Last 24 Hours (Table) 03/31/17 Range/Units 19:03 Plasma Lactic Acid Ovidio 0.6 L (0.7-2.0) mmol/L Assessment and Plan Plan: # acute COPD exacerbation due to underlying influenza B infection failed outpatient therapy IV steroids Duonebs continue home inhalers continue singulair pulmonary toileting pulmonary consultation IV ABx levoquin per pulmonary recs #. Acute influenza B infection continue tamiflu day 05/30 counseled regarding close contact prophylaxis #. Adrenal insufficiency continue cortef #. history of MS, now stable #. ALEXA patient encouraged regarding using her CPAP #. DVT prophylaxis heparin SC Surrogate decision-maker: patient brother Gregg Weaver CODE STATUS:full code DVT prophylaxis: heparin sc Discussed with: Patient, ER, RN Anticipated discharge: [address]: home A total of 55 minutes were spent on the care of this complex patient more than 50% of the time was spent in counseling and care coordination.
[2017-03-31] MEDS: methylPREDNISolone SOD SUCCI 125 MG/2 ML VIAL IV SCH (23:59)
[2017-03-31] MEDS: HEPARIN SODIUM,PORCINE 5,000 UNIT/ML 1 ML VIAL SQ SCH (23:59)
[2017-04-01] MEDS: OSELTAMIVIR 75 MG CAP PO SCH ×2 (05:30→18:59)
[2017-04-01 07:35] LABS: Basophils % (A) 0 %; Eosinophils % (A) 1 %; HCT 40.6 % (34.0-46.0); HGB 12.3 gm/dL (11.4-16.0); Hypochromasia Slight; Lymphocytes # (A) 0.6 k/uL (1.0-4.8); Lymphocytes % (A) 17 %; MCHC 30.2 g/dL (31.0-37.0); MCV 99.2 fL (80.0-100.0); Mean Platelet Volume 6.7; Monocytes # (A) 0.1 k/uL (0-1.0); Monocytes % (A) 2 %; Neutrophils # (A) 2.7 k/uL (1.3-7.7); Neutrophils % (A) 79 %; Platelet Count 322 k/uL (150-450); RBC 4.09 m/uL (3.80-5.40); RDW 13.7 % (11.5-15.5); WBC 3.4 k/uL (3.8-10.6)
[2017-04-01 07:48] LABS: Anion Gap 9 mmol/L; Blood Urea Nitrogen 14 mg/dL (7-17); Calcium 9.3 mg/dL (8.4-10.2); Carbon Dioxide 25 mmol/L (22-30); Chloride 105 mmol/L (98-107); Glucose 152 mg/dL (74-99); Potassium 4.5 mmol/L (3.5-5.1); Sodium 139 mmol/L (137-145)
[2017-04-01] MEDS: SYMBICORT 160-4.5 MCG INHALER INHALATION SCH ×2 (08:10→21:47)
[2017-04-01] MEDS ORDERED: HYDROCORTISONE 10 MG TAB PO SCH (09:00)
[2017-04-01] MEDS: CHLORPHEN-HYDROcod 8-10mg/5ml 5 ML ORAL.SYRG PO PRN ×2 (10:41→21:45)
[2017-04-01] MEDS: LORATADINE-PSEUDOEPH 5-120 MG 1 EACH TAB.ER.12H PO SCH ×2 (10:43→21:33)
[2017-04-01] MEDS: CHOLESTYRAMINE (WITH SUGAR) 4 GM PACKET PO SCH ×2 (10:43→21:30)
[2017-04-01] MEDS: DULoxetine HCL 60 MG CAPSULE.DR PO SCH (10:43)
[2017-04-01] MEDS: FLUTICASONE 50MCG/SPRAY NASAL 16GM NASAL SCH ×2 (10:44→21:28)
[2017-04-01] MEDS: HEPARIN SODIUM,PORCINE 5,000 UNIT/ML 1 ML VIAL SQ SCH ×3 (10:45→21:31)
[2017-04-01] MEDS: PANTOPRAZOLE 40 MG TABLET PO SCH (10:45)
[2017-04-01] MEDS: DOCUSATE 100 MG CAP PO SCH ×2 (10:45→21:33)
[2017-04-01] MEDS: MELOXICAM 7.5 MG TAB PO SCH (10:46)
[2017-04-01] MEDS: INSULIN ASPART 100 UNIT/ML 1 ML 10 ML VIAL SQ SCH ×4 (11:05→21:37)
[2017-04-01] MEDS: BENZONATATE 100 MG CAP PO SCH ×3 (11:08→21:31)
[2017-04-01] MEDS: PRAMIPEXOLE 1 MG TAB PO SCH ×3 (11:08→21:31)
[2017-04-01 11:33] LABS: Glucose,Whole Blood 171 mg/dL (75-99)
[2017-04-01] MEDS: HYDROCORTISONE SUCCINATE 100 MG/2 ML VIAL IV SCH ×3 (11:56→23:51)
[2017-04-01] MEDS: methylPREDNISolone SOD SUCCI 125 MG/2 ML VIAL IV SCH (11:58)
--- NOTE | 2017-04-01 12:45 | P.PN ---
Subjective Progress Note Date: 04/01/17 Principal diagnosis: COPD exacerbation/influenza He feels a little bit better still with a lot of cough no fever no chills. Patient reports that performed a bronchoscopy on Thursday Objective - Vital Signs Vital signs: Vital Signs Temp 97.0 F L 04/01/17 07:00 Pulse 108 H 04/01/17 07:00 Resp 16 04/01/17 08:00 BP 136/86 04/01/17 07:00 Pulse Ox 97 04/01/17 07:00 Intake & Output 03/31/17 04/01/17 04/01/17 18:59 06:59 18:59 Intake Total 1180 700 Balance 1180 700 Weight 99.79 kg Intake: Amount of Fluid Infused ( 100 ml) Intake, IV Titration 200 Amount Levofloxacin 500Mg-D5w 200 Pmx 500 mg In Dextrose/ Water 1 100ml.bag @ 100 mls/hr IVPB ONCE STA Rx#: [id number] Oral 880 700 Other: Voiding Method Toilet # Voids 3 - Exam gen:alert and oriented lungs: Expiratory wheezing heart:s1s2 abdomen:soft and depressible,non tender ext:no edema - Labs CBC & Chem 7: 04/01/17 07:05 04/01/17 07:05 Labs: Abnormal Lab Results - Last 24 Hours (Table) 03/31/17 04/01/17 04/01/17 Range/Units 19:03 07:05 07:05 WBC 3.4 L (3.8-10.6) k/uL MCHC 30.2 L (31.0-37.0) g/dL Lymphocytes # 0.6 L (1.0-4.8) k/uL Glucose 152 H (74-99) mg/dL POC Glucose (mg/dL) (75-99) mg/dL Plasma Lactic Acid Ovidio 0.6 L (0.7-2.0) mmol/L 04/01/17 Range/Units 11:09 WBC (3.8-10.6) k/uL MCHC (31.0-37.0) g/dL Lymphocytes # (1.0-4.8) k/uL Glucose (74-99) mg/dL POC Glucose (mg/dL) 171 H (75-99) mg/dL Plasma Lactic Acid Ovidio (0.7-2.0) mmol/L Assessment and Plan (1) COPD exacerbation Narrative/Plan: IV Solu-Medrol and DuoNeb Current Visit: Yes Status: Acute Code(s): J44.1 - CHRONIC OBSTRUCTIVE PULMONARY DISEASE W (ACUTE) EXACERBATION SNOMED Code(s): 462577452 (2) Influenza Narrative/Plan: on tamiflu Current Visit: Yes Status: Acute Code(s): J11.1 - FLU DUE TO UNIDENTIFIED INFLUENZA VIRUS W OTH RESP MANIFEST SNOMED Code(s): 7290686 (3) Anemia of chronic disease Narrative/Plan: Stable Current Visit: No Status: Acute Code(s): D63.8 - ANEMIA IN OTHER CHRONIC DISEASES CLASSIFIED ELSEWHERE SNOMED Code(s): 326711785 (4) Hyperlipidemia Narrative/Plan: Continue Current Visit: No Status: Acute Code(s): E78.5 - HYPERLIPIDEMIA, UNSPECIFIED SNOMED Code(s): 42311421 (5) Hypothyroidism Narrative/Plan: Continue Synthroid Current Visit: No Status: Acute Code(s): E03.9 - HYPOTHYROIDISM, UNSPECIFIED SNOMED Code(s): 57766828
--- NOTE | 2017-04-01 16:00 | P.CNPUL ---
History of Present Illness Consult date: 04/01/17 Requesting physician: Lorrie Saba Reason for consult: dyspnea, cough Chief complaint: Cough, fevers, generalized body aches, and generalized malaise History of present illness: Tiarra is a 51-year-old white female patient, who follows with Dr. Dougherty for her history of severe persistent bronchial asthma, presented to the pulmonary office yesterday on 03/31/2017 with complaints of increasing shortness of breath , chest congestion and cough. She did have a bronchoscopy with bronchoalveolar lavage with Dr. Weiss last week on 03/26/2017 and the bronch washings were positive for influenza B for which the patient was initiated on Tamiflu. Patient was also placed on Levaquin. However despite the treatment, patient's symptoms did not improve, and she is feeling bronchospastic and wheezy, very weak and fatigued. For that reason patient was referred to the emergency room for further evaluation. Chest x-ray from 03/31/2017 showed no acute process. Patient was negative for any fevers. Vital signs are stable, she is on room air , with O2 sat at 97%. She has been on the Tamiflu for the last 4 days, he did develop some diarrhea, which could be related to the Tamiflu. She denies any chest wall tenderness, denies any hemoptysis. She was given IV Solu-Medrol, nebulized treatments, IV Levaquin, and was admitted for further management. Her lab work did not show any evidence of leukocytosis, no electrolyte abnormality, normal renal profile. Patient's other medical history includes obstructive sleep apnea syndrome, adrenal insufficiency, chronic back pain, fibromyalgia, GERD, multiple sclerosis, postural orthostatic tachycardia syndrome, autoimmune hepatitis, hypothyroidism, SVT, optic neuritis. Review of Systems All systems: negative Constitutional: Denies chills, Denies fever Eyes: denies blurred vision, denies pain Ears, nose, mouth and throat: Denies headache, Denies sore throat Cardiovascular: Denies chest pain, Denies shortness of breath Respiratory: Denies cough Gastrointestinal: Denies abdominal pain, Denies diarrhea, Denies nausea, Denies vomiting Genitourinary: Denies dysuria, Denies hematuria Musculoskeletal: Denies myalgias Integumentary: Denies pruritus, Denies rash Neurological: Denies numbness, Denies weakness Psychiatric: Denies anxiety, Denies depression Endocrine: Denies fatigue, Denies weight change Past Medical History Past Medical History: Asthma, COPD, Fibromyalgia, GERD/Reflux, Neurologic Disorder, Osteoarthritis (OA), Sleep Apnea/CPAP/BIPAP, Supraventricular Tachycardia (SVT) Additional Past Medical History / Comment(s): multiple sclerosis,optic neuritis, anemia,migraines,adrenal insufficiency,auto immune hepatitis, uses c-pap machine , avascular necrosis, uses cane and has knee brace. History of Any Multi-Drug Resistant Organisms: None Reported Past Surgical History: Bowel Resection, Cholecystectomy, Heart Catheterization, Hysterectomy, Joint Replacement, Orthopedic Surgery, Tonsillectomy Additional Past Surgical History / Comment(s): sinus surgery,blepharoplasty jayleen eyes,POWER PORT -IMPLANTABLE PORT-under right clavicle-bowel adhesions, rt knee replacement , 8 INCH BOWEL REMOVED, jayleen total hip replacement.03-07-16 BRONCHOSCOPY Past Anesthesia/Blood Transfusion Reactions: Blood Transfusion Reaction Additional Past Anesthesia/Blood Transfusion Reaction / Comment(s): HX OF BLOOD TRANSFUSION : HAS CARD STATING K ANTIBODY AFTER RECEIVING A TRANSFUSION Past Psychological History: Anxiety, Depression Smoking Status: Never smoker Past Alcohol Use History: None Reported Past Drug Use History: None Reported - Past Family History Mother Family Medical History: Hypertension Father Family Medical History: COPD, Hypertension Additional Family Medical History / Comment(s): Father at the age of 69 yrs from emphysema Brother(s) Additional Family Medical History / Comment(s): Brother-NE X2 Medications and Allergies Home Medications Medication Instructions Recorded Confirmed Type Montelukast [Singulair] 10 mg PO HS 07/14/13 03/31/17 History HYDROmorphone [Dilaudid] 4 mg PO Q4-6H PRN 08/03/13 03/31/17 History clonazePAM [KlonoPIN] 0.5 mg PO TID PRN 01/25/15 03/31/17 History Fluticasone/Vilanterol [Breo 1 puff INHALATION RT-DAILY 11/19/15 03/31/17 History Ellipta 200-25 Mcg INH] hydrOXYzine PAMOATE [Vistaril] 100 mg PO Q4-6H PRN 11/19/15 03/31/17 History Xeomin Inj 1 injection IM Q90D 12/11/15 03/31/17 History Promethaz-Cod 6.25-10 mg/5 ml 5 ml PO Q4-6H PRN 03/06/16 03/31/17 History [Phenergan with Codeine] Mometasone Inhalr 220 Mcg/Puff 2 puff INHALATION RT-DAILY 03/07/16 03/31/17 History [Asmanex] DULoxetine HCL [Cymbalta] 60 mg PO DAILY 11/13/16 03/31/17 History Cholestyramine (with Sugar) 4 gm PO BID 01/05/17 03/31/17 History [Questran Packet] Esomeprazole Magnesium [NexIUM] 40 mg PO DAILY 01/05/17 03/31/17 History Fexofenadine/Pseudoephedrine 1 tab PO DAILY 01/05/17 03/31/17 History [Renetta-D 24 Hour Tablet] Fluconazole [Diflucan] 200 mg PO DAILY PRN 01/05/17 03/31/17 History Fluticasone Nasal [place] [Flonase 2 puff NASAL BID 01/05/17 03/31/17 History Nasal [place]] Meclizine [Antivert] 12.5 mg PO Q8HR PRN 01/05/17 03/31/17 History Meloxicam [Mobic] 15 mg PO DAILY 01/05/17 03/31/17 History Prochlorperazine [Compazine] 10 mg PO Q8H PRN 01/05/17 03/31/17 History Vitamin D3 12,000iu 12,000 unit PO DAILY 01/05/17 03/31/17 History traZODone HCL 150 mg PO HS 01/05/17 03/31/17 History Levofloxacin [Levaquin] 500 mg PO DAILY 03/26/17 03/31/17 History Hydrocodone/Chlorphen P-Stirex 5 ml PO Q12HR PRN 03/31/17 03/31/17 History [Tussionex] Hydrocortisone [Cortef] 5 mg PO DAILY 03/31/17 03/31/17 History Oseltamivir [Tamiflu] 75 mg PO Q12HR 03/31/17 03/31/17 History Pramipexole [Mirapex] 2 mg PO TID 03/31/17 03/31/17 History Allergies Allergy/AdvReac Type Severity Reaction Status Date / Time Sulfa (Sulfonamide Allergy Severe Rash/Hives Verified 03/31/17 18:49 Antibiotics) adhesive Allergy Rash/Hives Verified 03/31/17 18:49 alcohol Allergy Rash/Hives Verified 03/31/17 18:49 [From Mastisol Adhesive] amoxicillin Allergy Rash/Hives Verified 03/31/17 18:49 glatiramer (copolymer 1) Allergy Unknown Verified 03/31/17 18:49 [From Copaxone] gum mastic Allergy Rash/Hives Verified 03/31/17 18:49 [From Mastisol Adhesive] interferon beta-1b Allergy Unknown Verified 03/31/17 18:49 [From Betaseron] methyl salicylate Allergy Rash/Hives Verified 03/31/17 18:49 [From Mastisol Adhesive] storax Allergy Rash/Hives Verified 03/31/17 18:49 [From Mastisol Adhesive] sulfamethoxazole Allergy Rash/Hives Verified 03/31/17 18:49 [From Bactrim] trimethoprim [From Bactrim] Allergy Rash/Hives Verified 03/31/17 18:49 bupropion HCl AdvReac Severe Rash/Hives Verified 03/31/17 18:49 [From Wellbutrin] gluten AdvReac Severe Nausea & Verified 03/31/17 18:49 Vomiting & Diarrhea interferon beta AdvReac Severe Rash/Hives Verified 03/31/17 18:49 interferon beta-1a AdvReac Severe Rash/Hives Verified 03/31/17 18:49 [From Avonex] lamotrigine [From Lamictal] AdvReac Severe Rash/Hives Verified 03/31/17 18:49 milk AdvReac Severe Nausea & Verified 03/31/17 18:49 Vomiting oxaprozin [From Daypro] AdvReac Severe Rash/Hives Verified 03/31/17 18:49 Penicillins AdvReac Severe Rash/Hives Verified 03/31/17 18:49 soy AdvReac Severe Nausea & Verified 03/31/17 18:49 Vomiting & Diarrhea azithromycin AdvReac Unknown Rash/Hives, Verified 03/31/17 18:49 RED SKIN, ITCHING doxycycline AdvReac Unknown Rash/Hives Verified 03/31/17 18:49 latex AdvReac Unknown Blisters Verified 03/31/17 18:49 albumin human AdvReac Rash/Hives Verified 03/31/17 18:49 [From Rebif (with albumin)] dicyclomine [From Bentyl] AdvReac Rash/Hives Verified 03/31/17 18:49 duloxetine [From Cymbalta] AdvReac Unknown Verified 03/31/17 18:49 wheat AdvReac Nausea & Verified 03/31/17 18:49 Vomiting & Diarrhea cow's milk Allergy Unknown Uncoded 03/31/17 17:58 surgical yusra Allergy Rash/Hives Uncoded 03/31/17 17:58 STERISTRIPS AdvReac Severe BLISTERS Uncoded 03/31/17 17:58 TO SKIN Physical Exam Vitals: Vital Signs Temp Pulse Pulse Resp BP BP Pulse Ox 04/01/17 08:00 16 04/01/17 07:00 97.0 F L 108 H 16 136/86 97 04/01/17 03:22 98 F 93 122/72 95 04/01/17 00:00 86 18 03/31/17 23:21 98.2 F 86 17 131/81 96 03/31/17 21:00 97.8 F 96 18 135/87 99 03/31/17 20:00 18 03/31/17 19:23 97.6 F 91 18 139/78 98 03/31/17 18:59 95 03/31/17 18:50 96 03/31/17 17:55 98.7 F 102 H 18 120/79 98 Intake and Output 04/01/17 04/01/17 04/01/17 06:59 14:59 22:59 Intake Total 580 700 Balance 580 700 Intake: Intake, IV Titration 100 Amount Levofloxacin 500Mg-D5w 100 Pmx 500 mg In Dextrose/ Water 1 100ml.bag @ 100 mls/hr IVPB ON[facility] Rx#: [id number] Oral 480 700 Other: Voiding Method Toilet # Voids 3 GENERAL EXAM: Alert, active, comfortable in no apparent distress. HEAD: Normocephalic/atraumatic. EYES: Normal reaction of pupils, equal size. Conjunctiva pink, sclera white. NOSE: Clear with pink turbinates. THROAT: No erythema or exudates. NECK: No masses, no JVD, no thyroid enlargement, no adenopathy. CHEST: No chest wall deformity. Symmetrical expansion. LUNGS: Equal air entry prolongation of the expiratory phase, and end expiratory wheezing On forced exhale maneuver CVS: Regular rate and rhythm, normal S1 and S2, no gallops, no murmurs, no rubs ABDOMEN: Soft, nontender. No hepatosplenomegaly, normal bowel sounds, no guarding or rigidity. EXTREMITIES: No clubbing, no edema, no cyanosis, 2+ pulses and upper and lower extremities. MUSCULOSKELETAL: Muscle strength and tone normal. SPINE: No scoliosis or deformity SKIN: No rashes CENTRAL NERVOUS SYSTEM: Alert and oriented -3. No focal deficits, tone is normal in all 4 extremities. PSYCHIATRIC: Alert and oriented -3. Appropriate affect. Intact judgment and insight. Results - Laboratory Findings CBC and BMP: 04/01/17 07:05 04/01/17 07:05 Abnormal lab findings: Abnormal Labs 03/31/17 04/01/17 04/01/17 19:03 07:05 07:05 WBC 3.4 L MCHC 30.2 L Lymphocytes # 0.6 L Glucose 152 H POC Glucose (mg/dL) Plasma Lactic Acid Ovidio 0.6 L 04/01/17 11:09 WBC MCHC Lymphocytes # Glucose POC Glucose (mg/dL) 171 H Plasma Lactic Acid Ovidio - Diagnostic Findings Chest x-ray: report reviewed Assessment and Plan Plan: Assessment: #1. Acute exacerbation of severe persistent bronchial asthma, with influenza B tracheobronchitis with failed outpatient treatment #2. Bronchoscopy last week on 03/26/[address] Thacker, the bronch washings were positive for influenza B, patient was initiated on Tamiflu and Levaquin, with no improvement in her symptoms #3. Multiple constitutional symptoms, generalized body aches, shortness of breath, persistent cough, weakness, fatigue, wheezing, due to the above #4. History of adrenal insufficiency #5. Multiple sclerosis #6. History of postural orthostatic tachycardia syndrome #7. Optic neuritis #8. Sleep apnea syndrome #9. GERD #10. Autoimmune hepatitis #11. Fibromyalgia #12. Chronic back pain #13. Multiple ALLERGIES to medications, antibiotics, latex, gluten, milk, soy products, wheat Plan: Continue current medical treatment, we will add stress doses of hydrocortisone of 100 mg IV every 8 hours, for patient's history of adrenal insufficiency. Continue Symbicort, nebulized treatments, continue Singulair, patient will be finished with her Tamiflu after tonight's dose, that we will complete her 5 day course of Tamiflu. Continue IV Levaquin, and tinea home meds. I performed a history & physical examination of the patient and discussed their management with my nurse practitioner, Vibha Spivey. I reviewed the nurse practitioner's note and agree with the documented findings and plan of care. Lung sounds are positive for prolongation of expiratory phase upon forced exhale maneuver there are some end expiratory wheezing. The findings and the impression was discussed with the patient. I attest to the documentation by the nurse practitioner. Time with Patient: Greater than 30
[2017-04-01 17:23] LABS: Glucose,Whole Blood 115 mg/dL (75-99)
[2017-04-01] MEDS ORDERED: IPRATROPIUM-ALBUTEROL 3 ML NEB INHALATION PRN (19:25)
[2017-04-01 19:43] LABS: Glucose,Whole Blood 117 mg/dL (75-99)
[2017-04-01] MEDS ORDERED: LEVOFLOXACIN 500MG-D5W PMX 500 MG in DEXTROSE/WATER 1 100ML.BAG IVPB SCH (20:00)
[2017-04-01] MEDS: MONTELUKAST 10 MG TAB PO SCH (21:32)
[2017-04-01] MEDS: traZODone HCL 50 MG TAB PO SCH (21:33)
[2017-04-01] MEDS: clonazePAM 0.5 MG TAB PO PRN (21:45)
[2017-04-02 01:55] VITALS: RESP 17
[2017-04-02] MEDS: SYMBICORT 160-4.5 MCG INHALER INHALATION SCH (07:13)
[2017-04-02 07:27] LABS: Glucose,Whole Blood 153 mg/dL (75-99)
[2017-04-02] MEDS: HEPARIN SODIUM,PORCINE 5,000 UNIT/ML 1 ML VIAL SQ SCH (08:12)
[2017-04-02] MEDS: BENZONATATE 100 MG CAP PO SCH (08:12)
[2017-04-02] MEDS: DOCUSATE 100 MG CAP PO SCH (08:13)
[2017-04-02] MEDS: HYDROCORTISONE SUCCINATE 100 MG/2 ML VIAL IV SCH (08:13)
[2017-04-02] MEDS: PRAMIPEXOLE 1 MG TAB PO SCH (08:13)
[2017-04-02] MEDS: CHOLESTYRAMINE (WITH SUGAR) 4 GM PACKET PO SCH (08:14)
[2017-04-02] MEDS: FLUTICASONE 50MCG/SPRAY NASAL 16GM NASAL SCH (08:14)
[2017-04-02] MEDS: PANTOPRAZOLE 40 MG TABLET PO SCH (08:14)
[2017-04-02] MEDS: MELOXICAM 7.5 MG TAB PO SCH (08:15)
[2017-04-02] MEDS: LORATADINE-PSEUDOEPH 5-120 MG 1 EACH TAB.ER.12H PO SCH (08:16)
[2017-04-02] MEDS: DULoxetine HCL 60 MG CAPSULE.DR PO SCH (08:17)
[2017-04-02 08:19] VITALS: BP 153/91; PULSE 88; TEMP 97.8
[2017-04-02] MEDS: INSULIN ASPART 100 UNIT/ML 1 ML 10 ML VIAL SQ SCH ×2 (08:22→12:41)
--- NOTE | 2017-04-02 10:13 | P.DS ---
Providers Date of admission: 03/31/17 19:28 Expected date of discharge: 04/02/17 Attending physician: Lorrie Saba MD Consults: 03/31/17 19:18 Consult Physician Routine Consulting Provider: Seferino Dougherty Reason/Comments: COPD Do you want consulting provider notified?: Already Contacted Primary care physician: Seferino Dougherty - Discharge Diagnosis(es) (1) COPD exacerbation Current Visit: Yes Status: Acute (2) Influenza Current Visit: Yes Status: Acute (3) Anemia of chronic disease Current Visit: No Status: Acute (4) Hyperlipidemia Current Visit: No Status: Acute (5) Hypothyroidism Current Visit: No Status: Acute (6) Adrenal insufficiency Current Visit: No Status: Acute Hospital Course: 52-year-old female that comes in with several weeks history of cough and shortness of breath. Patient actually had bronchoscopy performed by by Thursday. Patient continued to have cough and shortness of breath. Her test did show evidence of influenza. So patient was started on Tamiflu. Patient was treated with IV steroids and DuoNeb. Currently is feeling much better. Discussed with Dr. Dougherty patient to go back on her normal dose of Solu-Cortef for adrenal insufficiency. gen:alert and oriented lungs:clear to auscultation heart:s1s2 abdomen:soft and depressible,non tender ext:no edema Time of discharge 32 minutes Patient Condition at Discharge: Stable Plan - Discharge Summary Discharge Rx Participant: Yes New Discharge Prescriptions: New Levofloxacin [Levaquin] 500 mg PO DAILY 5 Days #5 tab Benzonatate [Tessalon Perles] 200 mg PO TID #15 cap Continue Montelukast [Singulair] 10 mg PO HS HYDROmorphone [Dilaudid] 4 mg PO Q4-6H PRN PRN Reason: Pain clonazePAM [KlonoPIN] 0.5 mg PO TID PRN PRN Reason: Anxiety hydrOXYzine PAMOATE [Vistaril] 100 mg PO Q4-6H PRN PRN Reason: takes w/ dilaudid for itching Fluticasone/Vilanterol [Breo Ellipta 200-25 Mcg INH] 1 puff INHALATION RT- DAILY Xeomin Inj 1 injection IM Q90D Promethaz-Cod 6.25-10 mg/5 ml [Phenergan with Codeine] 5 ml PO Q4-6H PRN PRN Reason: Cough Mometasone Inhalr 220 Mcg/Puff [Asmanex] 2 puff INHALATION RT-DAILY DULoxetine HCL [Cymbalta] 60 mg PO DAILY Meclizine [Antivert] 12.5 mg PO Q8HR PRN PRN Reason: dizziness Fexofenadine/Pseudoephedrine [Renetta-D 24 Hour Tablet] 1 tab PO DAILY Esomeprazole Magnesium [NexIUM] 40 mg PO DAILY Fluticasone Nasal [place] [Flonase Nasal [place]] 2 puff NASAL BID Prochlorperazine [Compazine] 10 mg PO Q8H PRN PRN Reason: Nausea Fluconazole [Diflucan] 200 mg PO DAILY PRN PRN Reason: WITH ANTIBIOTICS Cholestyramine (with Sugar) [Questran Packet] 4 gm PO BID traZODone HCL 150 mg PO HS Vitamin D3 12,000iu 12,000 unit PO DAILY Meloxicam [Mobic] 15 mg PO DAILY Levofloxacin [Levaquin] 500 mg PO DAILY Hydrocodone/Chlorphen P-Stirex [Tussionex] 5 ml PO Q12HR PRN PRN Reason: Pain Pramipexole [Mirapex] 2 mg PO TID Hydrocortisone [Cortef] 5 mg PO DAILY Discontinued Oseltamivir [Tamiflu] 75 mg PO Q12HR Discharge Medication List Montelukast [Singulair] 10 mg PO HS 07/14/13 [History] HYDROmorphone [Dilaudid] 4 mg PO Q4-6H PRN 08/03/13 [History] clonazePAM [KlonoPIN] 0.5 mg PO TID PRN 01/25/15 [History] Fluticasone/Vilanterol [Breo Ellipta 200-25 Mcg INH] 1 puff INHALATION RT-DAILY 11/19/15 [History] hydrOXYzine PAMOATE [Vistaril] 100 mg PO Q4-6H PRN 11/19/15 [History] Xeomin Inj 1 injection IM Q90D 12/11/15 [History] Promethaz-Cod 6.25-10 mg/5 ml [Phenergan with Codeine] 5 ml PO Q4-6H PRN [History] Mometasone Inhalr 220 Mcg/Puff [Asmanex] 2 puff INHALATION RT-DAILY 03/07/16 [ History] DULoxetine HCL [Cymbalta] 60 mg PO DAILY 11/13/16 [History] Cholestyramine (with Sugar) [Questran Packet] 4 gm PO BID 01/05/17 [History] Esomeprazole Magnesium [NexIUM] 40 mg PO DAILY 01/05/17 [History] Fexofenadine/Pseudoephedrine [Renetta-D 24 Hour Tablet] 1 tab PO DAILY 01/05/17 [History] Fluconazole [Diflucan] 200 mg PO DAILY PRN 01/05/17 [History] Fluticasone Nasal [place] [Flonase Nasal [place]] 2 puff NASAL BID 01/05/17 [History ] Meclizine [Antivert] 12.5 mg PO Q8HR PRN 01/05/17 [History] Meloxicam [Mobic] 15 mg PO DAILY 01/05/17 [History] Prochlorperazine [Compazine] 10 mg PO Q8H PRN 01/05/17 [History] Vitamin D3 12,000iu 12,000 unit PO DAILY 01/05/17 [History] traZODone HCL 150 mg PO HS 01/05/17 [History] Levofloxacin [Levaquin] 500 mg PO DAILY 03/26/17 [History] Hydrocodone/Chlorphen P-Stirex [Tussionex] 5 ml PO Q12HR PRN 03/31/17 [History] Hydrocortisone [Cortef] 5 mg PO DAILY 03/31/17 [History] Pramipexole [Mirapex] 2 mg PO TID 03/31/17 [History] Benzonatate [Tessalon Perles] 200 mg PO TID #15 cap 04/02/17 [Rx] Levofloxacin [Levaquin] 500 mg PO DAILY 5 Days #5 tab 04/02/17 [Rx] Follow up Appointment(s)/Referral(s): Seferino Dougherty DO [Primary Care Provider] - 1 Week Discharge Disposition: HOME SELF-CARE
[2017-04-02 11:13] LABS: Glucose,Whole Blood 96 mg/dL (75-99)
--- NOTE | 2017-04-02 12:06 | P.PN ---
Subjective Progress Note Date: 04/02/17 Principal diagnosis: Exacerbation of severe persistent bronchial asthma with influenza B tracheobronchitis with failed outpatient treatment Tiarra is a 51-year-old white female patient, who follows with Dr. Dougherty for her history of severe persistent bronchial asthma, presented to the pulmonary office yesterday on 03/31/2017 with complaints of increasing shortness of breath , chest congestion and cough. She did have a bronchoscopy with bronchoalveolar lavage with Dr. Weiss last week on 03/26/2017 and the bronch washings were positive for influenza B for which the patient was initiated on Tamiflu. Patient was also placed on Levaquin. However despite the treatment, patient's symptoms did not improve, and she is feeling bronchospastic and wheezy, very weak and fatigued. For that reason patient was referred to the emergency room for further evaluation. Chest x-ray from 03/31/2017 showed no acute process. Patient was negative for any fevers. Vital signs are stable, she is on room air , with O2 sat at 97%. She has been on the Tamiflu for the last 4 days, he did develop some diarrhea, which could be related to the Tamiflu. She denies any chest wall tenderness, denies any hemoptysis. She was given IV Solu-Medrol, nebulized treatments, IV Levaquin, and was admitted for further management. Her lab work did not show any evidence of leukocytosis, no electrolyte abnormality, normal renal profile. Patient's other medical history includes obstructive sleep apnea syndrome, adrenal insufficiency, chronic back pain, fibromyalgia, GERD, multiple sclerosis, postural orthostatic tachycardia syndrome, autoimmune hepatitis, hypothyroidism, SVT, optic neuritis. On 04/02/2017 patient is seen again in follow-up. She is doing very well, she has been ambulating within the room, tolerating activity well. Lung sounds reveal good air entry bilaterally, with only faint few wheezing on forced exhale expiratory maneuver. No significant sputum production. Her vital signs are stable, she has been afebrile. She remains on room air, with O2 sat at 97% . Patient is requesting to go home today, [birth year]. Patient is stable for discharge home today. Objective - Vital Signs Vital signs: Vital Signs Temp 97.8 F 04/02/17 08:08 Pulse 88 04/02/17 08:08 Resp 17 04/02/17 08:15 BP 153/91 04/02/17 08:08 Pulse Ox 97 04/02/17 08:08 Intake & Output 04/01/17 04/02/17 04/02/17 18:59 06:59 18:59 Intake Total 2740 100 240 Balance 2740 100 240 Intake: Intake, IV Titration 100 Amount Levofloxacin 500Mg-D5w 100 Pmx 500 mg In Dextrose/ Water 1 100ml.bag @ 100 mls/hr IVPB Q24H [facility] Rx#: [id number] Oral 2740 240 Other: Voiding Method Toilet Toilet - Exam GENERAL EXAM: Alert, active, comfortable in no apparent distress. HEAD: Normocephalic/atraumatic. EYES: Normal reaction of pupils, equal size. Conjunctiva pink, sclera white. NOSE: Clear with pink turbinates. THROAT: No erythema or exudates. NECK: No masses, no JVD, no thyroid enlargement, no adenopathy. CHEST: No chest wall deformity. Symmetrical expansion. LUNGS: Equal air entry prolongation of the expiratory phase, and end expiratory wheezing On forced exhale maneuver CVS: Regular rate and rhythm, normal S1 and S2, no gallops, no murmurs, no rubs ABDOMEN: Soft, nontender. No hepatosplenomegaly, normal bowel sounds, no guarding or rigidity. EXTREMITIES: No clubbing, no edema, no cyanosis, 2+ pulses and upper and lower extremities. MUSCULOSKELETAL: Muscle strength and tone normal. SPINE: No scoliosis or deformity SKIN: No rashes CENTRAL NERVOUS SYSTEM: Alert and oriented -3. No focal deficits, tone is normal in all 4 extremities. PSYCHIATRIC: Alert and oriented -3. Appropriate affect. Intact judgment and insight. - Labs CBC & Chem 7: 04/01/17 07:05 04/01/17 07:05 Labs: Abnormal Lab Results - Last 24 Hours (Table) 04/01/17 04/01/17 04/02/17 Range/Units 17:18 19:29 07:23 POC Glucose (mg/dL) 115 H 117 H 153 H (75-99) mg/dL Microbiology - Last 24 Hours (Table) 03/31/17 19:03 Blood Culture - Preliminary Blood No Growth after 24 hours Assessment and Plan Plan: Assessment: #1. Acute exacerbation of severe persistent bronchial asthma, with influenza B tracheobronchitis with failed outpatient treatment #2. Bronchoscopy last week on 03/26/[address] Thacker, the bronch washings were positive for influenza B, patient was initiated on Tamiflu and Levaquin, with no improvement in her symptoms #3. Multiple constitutional symptoms, generalized body aches, shortness of breath, persistent cough, weakness, fatigue, wheezing, due to the above #4. History of adrenal insufficiency #5. Multiple sclerosis #6. History of postural orthostatic tachycardia syndrome #7. Optic neuritis #8. Sleep apnea syndrome #9. GERD #10. Autoimmune hepatitis #11. Fibromyalgia #12. Chronic back pain #13. Multiple ALLERGIES to medications, antibiotics, latex, gluten, milk, soy products, wheat Plan: Patient is improving, is able to tolerate ambulation, her vital signs remained stable, afebrile, patient has completed her course of Tamiflu. She is requesting to go home today, from pulmonary standpoint she is stable for discharge home today, she will need to complete 5 day course of outpatient Levaquin. Continue maintenance inhalers and nebulized treatments. We will stop the IV hydrocortisone, patient can continue on her maintenance dose of Cortef 5 mg daily. She will need to see Dr. Dougherty in the office in 7-10 days. I performed a history & physical examination of the patient and discussed their management with my nurse practitioner, Vibha Spivey. I reviewed the nurse practitioner's note and agree with the documented findings and plan of care. Lung sounds are positive for prolongation of expiratory phase upon forced exhale maneuver there are some end expiratory wheezing. The findings and the impression was discussed with the patient. I attest to the documentation by the nurse practitioner. Time with Patient: Less than 30
[2017-04-02] MEDS ORDERED: LEVOFLOXACIN 500 MG TAB PO SCH (20:00)
== END 2017-04-02 13:00 | disposition home or self-care (01) ==
LOC: EC 17:10 → 3SUR 19:28
PROVIDERS: ADMIT Internal Medicine; ATTEND Internal Medicine
DX: J44.1 Chronic obstructive pulmonary disease with (acute) exacerbation (principal); J10.1 Influenza due to other identified influenza virus with other respiratory manifestations; J45.51 Severe persistent asthma with (acute) exacerbation; G35 Multiple sclerosis; D63.8 Anemia in other chronic diseases classified elsewhere; E78.5 Hyperlipidemia, unspecified; E27.40 Unspecified adrenocortical insufficiency; M79.7 Fibromyalgia; K21.9 Gastro-esophageal reflux disease without esophagitis; G47.33 Obstructive sleep apnea (adult) (pediatric); Z99.89 Dependence on other enabling machines and devices; M19.90 Unspecified osteoarthritis, unspecified site; I47.1 Supraventricular tachycardia; I49.8 Other specified cardiac arrhythmias; H46.9 Unspecified optic neuritis; K75.4 Autoimmune hepatitis; M87.9 Osteonecrosis, unspecified; G43.909 Migraine, unspecified, not intractable, without status migrainosus; F41.9 Anxiety disorder, unspecified; F32.9 Major depressive disorder, single episode, unspecified; E03.9 Hypothyroidism, unspecified; G89.29 Other chronic pain; M54.9 Dorsalgia, unspecified; Z82.5 Family history of asthma and other chronic lower respiratory diseases; Z82.49 Family history of ischemic heart disease and other diseases of the circulatory system; Z79.51 Long term (current) use of inhaled steroids; Z79.1 Long term (current) use of non-steroidal anti-inflammatories (NSAID); Z79.899 Other long term (current) drug therapy; Z88.0 Allergy status to penicillin; Z88.1 Allergy status to other antibiotic agents; Z88.2 Allergy status to sulfonamides; Z91.041 Radiographic dye allergy status; Z91.040 Latex allergy status; Z91.011 Allergy to milk products; Z88.8 Allergy status to other drugs, medicaments and biological substances; Z91.018 Allergy to other foods; Z91.048 Other nonmedicinal substance allergy status
CPT/HCPCS: 99284 ×2; 96365 ×2; 96375 ×3; 96376 ×3; 96366; 96372 ×3; 36415; 94640 ×4; 80053; 80048; 83605; 85025 ×2; 87040; 71046; G0378 ×3; J1644 ×3; J1720 ×2; J2930; J1956 ×2; J1642

== ENCOUNTER → 2017-04-09 | Outpatient (CLI) | payer MEDICARE ==
[2017-04-09 11:45] LABS: ALT 430 U/L (9-52); AST 47 U/L (14-36)
== END | disposition home or self-care (01) ==
LOC: LABWHC1 10:46
PROVIDERS: ATTEND Psychiatry & Neurology Psychiatry
DX: F33.2 Major depressive disorder, recurrent severe without psychotic features (principal)
CPT/HCPCS: 36415; 84450; 84460

== ENCOUNTER 2017-04-10 09:57 | Emergency (ER) | payer MEDICARE ==
[2017-04-10] MEDS ORDERED: ONDANSETRON 4 MG/2 ML VIAL IVP STA (10:23)
[2017-04-10] MEDS ORDERED: SODIUM CHLORIDE 0.9% 500 ML IV STA (10:23)
[2017-04-10] MEDS ORDERED: SODIUM CHLORIDE 0.9% 1,000 ML IV STA ×2 (10:23)
[2017-04-10] MEDS ORDERED: MORPHINE SULFATE 4 MG/ML SYRINGE IV STA (10:23)
--- NOTE | 2017-04-10 10:33 | ED ---
General Adult HPI - General Chief complaint: Recheck/Abnormal Lab/Rx Stated complaint: abnormal labs, sent by Time Seen by Provider: 04/10/17 10:23 Source: patient, RN notes reviewed, old records reviewed Mode of arrival: wheelchair Limitations: no limitations - History of Present Illness Initial comments: This is a 52-year-old female to the ER for evaluation. Patient's brought in for ER for evaluation of abnormal lab tests and abnormal vital signs as an outpatient. Patient has extensive medical history. No recent change in medications. Patient was at family doctor earlier today and is significantly elevated heart rate. Patient does feel lightheaded dizzy and weak, nauseous. Patient also complaining of some abdominal pain. Patient has history of hepatitis likely autoimmune hepatitis. Patient denies alcohol. Denies any fevers - Related Data Home Medications Medication Instructions Recorded Confirmed Montelukast [Singulair] 10 mg PO HS 07/14/13 04/10/17 HYDROmorphone [Dilaudid] 4 mg PO Q4-6H PRN 08/03/13 04/10/17 clonazePAM [KlonoPIN] 0.5 mg PO TID PRN 01/25/15 04/10/17 Fluticasone/Vilanterol [Breo 1 puff INHALATION RT-DAILY 11/19/15 04/10/17 Ellipta 200-25 Mcg INH] hydrOXYzine PAMOATE [Vistaril] 100 mg PO Q4-6H PRN 11/19/15 04/10/17 Xeomin Inj 1 injection IM Q90D 12/11/15 04/10/17 Promethaz-Cod 6.25-10 mg/5 ml 5 ml PO Q4-6H PRN 03/06/16 04/10/17 [Phenergan with Codeine] Mometasone Inhalr 220 Mcg/Puff 2 puff INHALATION RT-DAILY 03/07/16 04/10/17 [Asmanex] DULoxetine HCL [Cymbalta] 60 mg PO DAILY 11/13/16 04/10/17 Cholestyramine (with Sugar) 4 gm PO BID 01/05/17 04/10/17 [Questran Packet] Esomeprazole Magnesium [NexIUM] 40 mg PO DAILY 01/05/17 04/10/17 Fexofenadine/Pseudoephedrine 1 tab PO DAILY 01/05/17 04/10/17 [Renetta-D 24 Hour Tablet] Fluconazole [Diflucan] 200 mg PO DAILY PRN 01/05/17 04/10/17 Fluticasone Nasal [place] [Flonase 2 puff NASAL BID 01/05/17 04/10/17 Nasal [place]] Meclizine [Antivert] 12.5 mg PO Q8HR PRN 01/05/17 04/10/17 Meloxicam [Mobic] 15 mg PO DAILY 01/05/17 04/10/17 Prochlorperazine [Compazine] 10 mg PO Q8H PRN 01/05/17 04/10/17 Vitamin D3 12,000iu 12,000 unit PO DAILY 01/05/17 04/10/17 traZODone HCL 150 mg PO HS 01/05/17 04/10/17 Hydrocodone/Chlorphen P-Stirex 5 ml PO Q12HR PRN 03/31/17 04/10/17 [Tussionex] Hydrocortisone [Cortef] 5 mg PO DAILY 03/31/17 04/10/17 Pramipexole [Mirapex] 2 mg PO TID 03/31/17 04/10/17 Previous Rx's Medication Instructions Recorded Benzonatate [Tessalon Perles] 200 mg PO TID #15 cap 04/02/17 Allergies Allergy/AdvReac Type Severity Reaction Status Date / Time Sulfa (Sulfonamide Allergy Severe Rash/Hives Verified 04/10/17 11:11 Antibiotics) adhesive Allergy Rash/Hives Verified 04/10/17 11:11 alcohol Allergy Rash/Hives Verified 04/10/17 11:11 [From Mastisol Adhesive] amoxicillin Allergy Rash/Hives Verified 04/10/17 11:11 glatiramer (copolymer 1) Allergy Unknown Verified 04/10/17 11:11 [From Copaxone] gum mastic Allergy Rash/Hives Verified 04/10/17 11:11 [From Mastisol Adhesive] interferon beta-1b Allergy Unknown Verified 04/10/17 11:11 [From Betaseron] methyl salicylate Allergy Rash/Hives Verified 04/10/17 11:11 [From Mastisol Adhesive] storax Allergy Rash/Hives Verified 04/10/17 11:11 [From Mastisol Adhesive] sulfamethoxazole Allergy Rash/Hives Verified 04/10/17 11:11 [From Bactrim] trimethoprim [From Bactrim] Allergy Rash/Hives Verified 04/10/17 11:11 bupropion HCl AdvReac Severe Rash/Hives Verified 04/10/17 11:11 [From Wellbutrin] gluten AdvReac Severe Nausea & Verified 04/10/17 11:11 Vomiting & Diarrhea interferon beta AdvReac Severe Rash/Hives Verified 04/10/17 11:11 interferon beta-1a AdvReac Severe Rash/Hives Verified 04/10/17 11:11 [From Avonex] lamotrigine [From Lamictal] AdvReac Severe Rash/Hives Verified 04/10/17 11:11 milk AdvReac Severe Nausea & Verified 04/10/17 11:11 Vomiting oxaprozin [From Daypro] AdvReac Severe Rash/Hives Verified 04/10/17 11:11 Penicillins AdvReac Severe Rash/Hives Verified 04/10/17 11:11 soy AdvReac Severe Nausea & Verified 04/10/17 11:11 Vomiting & Diarrhea azithromycin AdvReac Unknown Rash/Hives, Verified 04/10/17 11:11 RED SKIN, ITCHING doxycycline AdvReac Unknown Rash/Hives Verified 04/10/17 11:11 latex AdvReac Unknown Blisters Verified 04/10/17 11:11 albumin human AdvReac Rash/Hives Verified 04/10/17 11:11 [From Rebif (with albumin)] dicyclomine [From Bentyl] AdvReac Rash/Hives Verified 04/10/17 11:11 duloxetine [From Cymbalta] AdvReac Unknown Verified 04/10/17 11:11 wheat AdvReac Nausea & Verified 04/10/17 11:11 Vomiting & Diarrhea cow's milk Allergy Unknown Uncoded 04/10/17 10:08 surgical yusra Allergy Rash/Hives Uncoded 04/10/17 10:08 STERISTRIPS AdvReac Severe BLISTERS Uncoded 04/10/17 10:08 TO SKIN Review of Systems ROS Statement: Those systems with pertinent positive or pertinent negative responses have been documented in the HPI. ROS Other: All systems not noted in ROS Statement are negative. Past Medical History Past Medical History: Asthma, COPD, Fibromyalgia, GERD/Reflux, Hypertension, Neurologic Disorder, Osteoarthritis (OA), Sleep Apnea/CPAP/BIPAP, Supraventricular Tachycardia (SVT), Syncope Additional Past Medical History / Comment(s): multiple sclerosis,optic neuritis, anemia,migraines,adrenal insufficiency,auto immune hepatitis, uses c-pap machine , avascular necrosis, uses cane and has knee brace. SVT, POTS History of Any Multi-Drug Resistant Organisms: None Reported Past Surgical History: Bowel Resection, Cholecystectomy, Heart Catheterization, Hysterectomy, Joint Replacement, Orthopedic Surgery, Tonsillectomy Additional Past Surgical History / Comment(s): sinus surgery,blepharoplasty jayleen eyes,POWER PORT -IMPLANTABLE PORT-under right clavicle-bowel adhesions, rt knee replacement , 8 INCH BOWEL REMOVED, jayleen total hip replacement.03-07-16 BRONCHOSCOPY Past Anesthesia/Blood Transfusion Reactions: Blood Transfusion Reaction Additional Past Anesthesia/Blood Transfusion Reaction / Comment(s): HX OF BLOOD TRANSFUSION : HAS CARD STATING K ANTIBODY AFTER RECEIVING A TRANSFUSION Past Psychological History: Anxiety, Depression Smoking Status: Never smoker Past Alcohol Use History: None Reported Past Drug Use History: None Reported - Past Family History Mother Family Medical History: Hypertension Father Family Medical History: COPD, Hypertension Additional Family Medical History / Comment(s): Father at the age of 69 yrs from emphysema Brother(s) Additional Family Medical History / Comment(s): Brother-[place] X2 General Exam Limitations: no limitations General appearance: alert, in no apparent distress, anxious, obese Head exam: Present: atraumatic, normocephalic, normal inspection Eye exam: Present: normal appearance, PERRL, EOMI. Absent: scleral icterus, conjunctival injection, periorbital swelling ENT exam: Present: normal exam, mucous membranes moist Neck exam: Present: normal inspection. Absent: tenderness, meningismus, lymphadenopathy Respiratory exam: Present: normal lung sounds bilaterally. Absent: respiratory distress, wheezes, rales, rhonchi, stridor Cardiovascular Exam: Present: normal rhythm, tachycardia, normal heart sounds. Absent: systolic murmur, diastolic murmur, rubs, gallop, clicks GI/Abdominal exam: Present: soft, normal bowel sounds. Absent: distended, tenderness, guarding, rebound, rigid Extremities exam: Present: normal inspection, full ROM, normal capillary refill. Absent: tenderness, pedal edema, joint swelling, calf tenderness Back exam: Present: normal inspection Neurological exam: Present: alert, oriented X3, CN II-XII intact Psychiatric exam: Present: normal affect, normal mood Skin exam: Present: warm, dry, intact, normal color. Absent: rash Course Vital Signs 04/10/17 04/10/17 04/10/17 10:04 12:32 14:20 Temperature 97.8 F Pulse Rate 139 H 106 H 100 Respiratory 20 18 18 Rate Blood Pressure 109/77 119/81 148/72 O2 Sat by Pulse 96 96 104 H Oximetry - Reevaluation(s) Reevaluation #1: 04/10/17 11:10 Patient has mild improvement heart rate at this time Reevaluation #2: 04/10/17 15:01 Spoke with cardiology, patient is able to have event monitor here in the ER EKG Findings - EKG Comments: EKG Findings:: EKG shows sinus rhythm rate of 89, OK 134, QRS 70, QTc 408 Medical Decision Making - Medical Decision Making 56 male female the ER for evaluation, patient sent in by family doctor for evaluation regards to severe tachycardia heart rate in the 150s. Heart rate remains elevated at this time. Patient has event monitor placed here in the ER patient can be discharged home - Lab Data Result diagrams: 04/10/17 12:05 04/10/17 12:05 Lab Results 04/10/17 04/10/17 04/10/17 Range/Units 12:05 12:05 12:05 WBC 9.1 (3.8-10.6) k/uL RBC 4.66 (3.80-5.40) m/uL Hgb 14.2 (11.4-16.0) gm/dL Hct 44.8 (34.0-46.0) % MCV 96.2 (80.0-100.0) fL MCH 30.5 (25.0-35.0) pg MCHC 31.8 (31.0-37.0) g/dL RDW 14.2 (11.5-15.5) % Plt Count 392 (150-450) k/uL Neutrophils % 72 % Lymphocytes % 15 % Monocytes % 9 % Eosinophils % 1 % Basophils % 1 % Neutrophils # 6.5 (1.3-7.7) k/uL Lymphocytes # 1.4 (1.0-4.8) k/uL Monocytes # 0.9 (0-1.0) k/uL Eosinophils # 0.1 (0-0.7) k/uL Basophils # 0.1 (0-0.2) k/uL PT (9.0-12.0) sec INR (<1.2) APTT (22.0-30.0) sec Sodium 140 (137-145) mmol/L Potassium 4.4 (3.5-5.1) mmol/L Chloride 103 (98-107) mmol/L Carbon Dioxide 26 (22-30) mmol/L Anion Gap 11 mmol/L BUN 16 (7-17) mg/dL Creatinine 0.83 (0.52-1.04) mg/dL Est GFR (MDRD) Af Amer >60 (>60 ml/min/1.73 sqM) Est GFR (MDRD) Non-Af >60 (>60 ml/min/1.73 sqM) Glucose 92 (74-99) mg/dL Calcium 9.3 (8.4-10.2) mg/dL Phosphorus 3.9 (2.5-4.5) mg/dL Magnesium 2.2 (1.6-2.3) mg/dL Total Bilirubin 0.3 (0.2-1.3) mg/dL AST 25 (14-36) U/L ALT 282 H (9-52) U/L Alkaline Phosphatase 139 H (38-126) U/L Total Creatine Kinase 38 (30-135) U/L CK-MB (CK-2) <0.2 (0.0-2.4) ng/mL CK-MB (CK-2) Rel Index Troponin I <0.012 (0.000-0.034) ng/mL Total Protein 7.0 (6.3-8.2) g/dL Albumin 4.1 (3.5-5.0) g/dL Amylase 88 (30-110) U/L Lipase 127 (23-300) U/L TSH 1.620 (0.465-4.680) mIU/L 04/10/17 Range/Units 12:05 WBC (3.8-10.6) k/uL RBC (3.80-5.40) m/uL Hgb (11.4-16.0) gm/dL Hct (34.0-46.0) % MCV (80.0-100.0) fL MCH (25.0-35.0) pg MCHC (31.0-37.0) g/dL RDW (11.5-15.5) % Plt Count (150-450) k/uL Neutrophils % % Lymphocytes % % Monocytes % % Eosinophils % % Basophils % % Neutrophils # (1.3-7.7) k/uL Lymphocytes # (1.0-4.8) k/uL Monocytes # (0-1.0) k/uL Eosinophils # (0-0.7) k/uL Basophils # (0-0.2) k/uL PT 9.4 (9.0-12.0) sec INR 0.9 (<1.2) APTT 26.6 (22.0-30.0) sec Sodium (137-145) mmol/L Potassium (3.5-5.1) mmol/L Chloride (98-107) mmol/L Carbon Dioxide (22-30) mmol/L Anion Gap mmol/L BUN (7-17) mg/dL Creatinine (0.52-1.04) mg/dL Est GFR (MDRD) Af Amer (>60 ml/min/1.73 sqM) Est GFR (MDRD) Non-Af (>60 ml/min/1.73 sqM) Glucose (74-99) mg/dL Calcium (8.4-10.2) mg/dL Phosphorus (2.5-4.5) mg/dL Magnesium (1.6-2.3) mg/dL Total Bilirubin (0.2-1.3) mg/dL AST (14-36) U/L ALT (9-52) U/L Alkaline Phosphatase (38-126) U/L Total Creatine Kinase (30-135) U/L CK-MB (CK-2) (0.0-2.4) ng/mL CK-MB (CK-2) Rel Index Troponin I (0.000-0.034) ng/mL Total Protein (6.3-8.2) g/dL Albumin (3.5-5.0) g/dL Amylase (30-110) U/L Lipase (23-300) U/L TSH (0.465-4.680) mIU/L Disposition Clinical Impression: Autoimmune hepatitis, COPD exacerbation, POTS (postural orthostatic tachycardia syndrome), Tachycardia Disposition: HOME SELF-CARE Condition: Good Instructions: Tachycardia (ED), Supraventricular Tachycardia (ED) Referrals: Seferino Dougherty DO [Primary Care Provider] - 1-2 days
[2017-04-10 12:19] LABS: Basophils # (A) 0.1 k/uL (0-0.2); Basophils % (A) 1 %; Eosinophils # (A) 0.1 k/uL (0-0.7); Eosinophils % (A) 1 %; HCT 44.8 % (34.0-46.0); HGB 14.2 gm/dL (11.4-16.0); Lymphocytes # (A) 1.4 k/uL (1.0-4.8); Lymphocytes % (A) 15 %; MCH 30.5 pg (25.0-35.0); MCHC 31.8 g/dL (31.0-37.0); MCV 96.2 fL (80.0-100.0); Mean Platelet Volume 6.4; Monocytes # (A) 0.9 k/uL (0-1.0); Monocytes % (A) 9 %; Neutrophils # (A) 6.5 k/uL (1.3-7.7); Neutrophils % (A) 72 %; Platelet Count 392 k/uL (150-450); RBC 4.66 m/uL (3.80-5.40); RDW 14.2 % (11.5-15.5); WBC 9.1 k/uL (3.8-10.6)
[2017-04-10 12:32] LABS: ALT 282 U/L (9-52); AST 25 U/L (14-36); Albumin 4.1 g/dL (3.5-5.0); Alkaline Phosphatase 139 U/L (38-126); Amylase 88 U/L (30-110); Anion Gap 11 mmol/L; Blood Urea Nitrogen 16 mg/dL (7-17); Calcium 9.3 mg/dL (8.4-10.2); Carbon Dioxide 26 mmol/L (22-30); Chloride 103 mmol/L (98-107); Glucose 92 mg/dL (74-99); Lipase 127 U/L (23-300); Magnesium 2.2 mg/dL (1.6-2.3); Phosphorus 3.9 mg/dL (2.5-4.5); Potassium 4.4 mmol/L (3.5-5.1); Sodium 140 mmol/L (137-145); Total Bilirubin 0.3 mg/dL (0.2-1.3)
[2017-04-10 12:33] VITALS: RESP 18
[2017-04-10 12:33] LABS: INR 0.9 (<1.2); Partial Thromboplastin Time 26.6 sec (22.0-30.0); Prothrombin Time 9.4 sec (9.0-12.0)
[2017-04-10 12:42] LABS: Creatine Kinase 38 U/L (30-135)
[2017-04-10 13:50] LABS: Creatine Kinase MB <0.2 ng/mL (0.0-2.4); Troponin I <0.012 ng/mL (0.000-0.034)
[2017-04-10] MEDS ORDERED: MORPHINE SULFATE 4 MG/ML SYRINGE IVP STA (14:28)
[2017-04-10 15:46] VITALS: BP 120/59; PULSE 94; TEMP 98.5
== END 2017-04-10 15:44 | disposition home or self-care (01) ==
LOC: EC 09:57
DX: J44.1 Chronic obstructive pulmonary disease with (acute) exacerbation (principal); I49.8 Other specified cardiac arrhythmias; K75.4 Autoimmune hepatitis; M79.7 Fibromyalgia; M19.90 Unspecified osteoarthritis, unspecified site; G47.30 Sleep apnea, unspecified; Z99.89 Dependence on other enabling machines and devices; D64.9 Anemia, unspecified; F32.9 Major depressive disorder, single episode, unspecified; F41.9 Anxiety disorder, unspecified; Z79.51 Long term (current) use of inhaled steroids; Z79.1 Long term (current) use of non-steroidal anti-inflammatories (NSAID); Z79.899 Other long term (current) drug therapy; Z88.2 Allergy status to sulfonamides; Z91.048 Other nonmedicinal substance allergy status; Z88.0 Allergy status to penicillin; Z88.1 Allergy status to other antibiotic agents; Z88.8 Allergy status to other drugs, medicaments and biological substances; Z91.011 Allergy to milk products; Z91.040 Latex allergy status; Z91.018 Allergy to other foods; Z53.8 Procedure and treatment not carried out for other reasons
CPT/HCPCS: 36415; 93005; 93270; 93271; 80053; 82150; 82550; 82553; 83690; 83735; 84100; 84443; 84484; 85025; 85610; 85730; 99284; 96374; 96375 ×2; 96376; 96361 ×3; J2270; J2405; J1642

== ENCOUNTER 2017-06-10 09:14 | Day surgery (SDC) | payer MEDICARE ==
[2017-06-09 12:08] VITALS: BMI 36.5
[2017-06-10 10:45] LABS: Glucose,Whole Blood 100 mg/dL (75-99)
[2017-06-10] MEDS ORDERED: ALBUTEROL NEBULIZED 2.5 MG/3 ML INHALATION STA (10:46)
[2017-06-10] MEDS ORDERED: LIDOCAINE 2% (PF) 20 MG/ML 10 ML AMP INHALATION ONE (10:50)
[2017-06-10] MEDS ORDERED: LACTATED RINGERS 1,000 ML IV ONE (10:53)
[2017-06-10] MEDS ORDERED: LIDOCAINE 1% INJ 10MG/ML (20 ML MDV) ONE (11:09)
[2017-06-10] MEDS ORDERED: PROPOFOL 10 MG/ML 20 ML VIAL IV ONE (11:09)
[2017-06-10] MEDS ORDERED: LIDOCAINE 2% INJ 20 MG/ML INTRATRACH ONE (11:22)
--- NOTE | 2017-06-10 11:34 | P.PCN ---
Date of Procedure: 06/10/17 Preoperative Diagnosis: Diffuse tracheobronchitis, asthma exacerbation Postoperative Diagnosis: Same Procedure(s) Performed: Flexible bronchoscopy, bronchoalveolar lavage Anesthesia: MAC Surgeon: Balbina Irwin Estimated Blood Loss (ml): 0 Pathology: other Condition: stable Disposition: same day Operative Findings: This is a flexible bronchoscopy that was done in the bronchoscopy unit under conscious sedation. Anesthetic were administered by DIALS SUPERVISOR at the bedside. After achieving adequate sedation flexible bronchoscope was inserted in the right nostril was advanced with upper airway. Examination of the pharynx, larynx, epiglottis, vocal cords, arytenoids and vallecula was done and all of the upper airway structures were within normal limits. No evidence of any abnormalities. Vocal cords were in the midline and there was symmetrical and fully functional. A total of 3 mL of 1% lidocaine was applied to the vocal cords and following that the bronchoscope was advanced into the trachea and examination of the tracheal bronchial tree was done. The visualized airways into the trachea, bilateral mainstem bronchi, right upper lobe bronchus, right middle lobe bronchus, right lower lobe bronchus, left upper lobe bronchus and left lower lobe bronchus along with the various segments and subsegments. There was some looseness for secretions retained throughout the patient's airways that were suctioned out. The bronchial mucosa seemed to be slightly inflamed and swollen. No endobronchial lesions. No foreign bodies. No purulent secretions. The bronchoscope was then wedged to the right middle lobe and the bronchioloalveolar lavage was done. A total of 80 mL of fluid was infused and 35 mL was suctioned back without any major difficulties. The aspirate was nonbloody. Addendum of the procedure, therapeutic it was suctioning was done and ultimately the bronchoscope was removed and the patient was transferred recovery in stable condition. No complications. No bleeding. The patient tolerated the procedure very well.
[2017-06-10 14:04] VITALS: BP 115/78; PULSE 92; RESP 20
[2017-06-10 18:25] LABS: Appearance,BF Hazy; Color,BF Red; Nucleated Cells, Body Fluid 450 /uL; RBC, Body Fluid 12750 /uL
[2017-06-10 18:26] LABS: Mononuclear WBC,Body Fluid 8 %; Polynuclear WBC,Body Fluid 92 %
== END 2017-06-10 14:25 | disposition home or self-care (01) ==
LOC: ORWHC2ENDO 09:14
PROVIDERS: ATTEND Internal Medicine Critical Care Medicine
DX: J45.51 Severe persistent asthma with (acute) exacerbation (principal); J44.9 Chronic obstructive pulmonary disease, unspecified; K75.4 Autoimmune hepatitis; E03.9 Hypothyroidism, unspecified; I47.1 Supraventricular tachycardia; M79.7 Fibromyalgia; G89.29 Other chronic pain; K21.9 Gastro-esophageal reflux disease without esophagitis; G35 Multiple sclerosis; G47.33 Obstructive sleep apnea (adult) (pediatric); Z88.1 Allergy status to other antibiotic agents; Z91.040 Latex allergy status; Z88.0 Allergy status to penicillin; Z88.2 Allergy status to sulfonamides; Z88.8 Allergy status to other drugs, medicaments and biological substances; Z91.018 Allergy to other foods; Z91.048 Other nonmedicinal substance allergy status; Z79.51 Long term (current) use of inhaled steroids; Z79.1 Long term (current) use of non-steroidal anti-inflammatories (NSAID); Z79.899 Other long term (current) drug therapy; Z79.891 Long term (current) use of opiate analgesic
CPT/HCPCS: 94640; 87798 ×3; 87496; 87498; 87529; 88108; 88305; 89050; 87252; 87502; 87634; 87070; 87205; 87116; 87102; 87206; 31624; J2001 ×2; J2704

== ENCOUNTER → 2017-06-23 | Outpatient (CLI) | payer MEDICARE ==
[2017-06-23 15:36] LABS: Hemoglobin A1C 5.8 % (4.0-6.0)
== END | disposition home or self-care (01) ==
LOC: LABWHC1 07:10
PROVIDERS: ATTEND Internal Medicine Critical Care Medicine
DX: E03.9 Hypothyroidism, unspecified (principal); K75.4 Autoimmune hepatitis; Z79.52 Long term (current) use of systemic steroids; Z13.1 Encounter for screening for diabetes mellitus
CPT/HCPCS: 36415; 82947; 83036

== ENCOUNTER 2017-07-20 11:59 | Observation (INO) | payer MEDICARE ==
[2017-07-20] MEDS ORDERED: methylPREDNISolone SOD SUCCI 125 MG/2 ML VIAL IV STA (12:22)
[2017-07-20] MEDS ORDERED: FAMOTIDINE 20 MG/2 ML VIAL IV STA (12:22)
[2017-07-20] MEDS ORDERED: diphenhydrAMINE 50 MG/ML 1 ML VIAL IVP STA (12:22)
--- NOTE | 2017-07-20 12:26 | ED ---
General Adult HPI - General Chief complaint: Allergic Reaction Stated complaint: allergic reaction Time Seen by Provider: 07/20/17 12:13 Source: patient, RN notes reviewed Mode of arrival: ambulatory Limitations: no limitations - History of Present Illness Initial comments: Patient is a pleasant 52-year-old female presenting to the emergency department with concerns regarding ALLERGIC reaction. Patient did have stimulator placed for sleep apnea. This was at [facility] approximately one week ago. Patient is concerned she may be having a reaction to the tape. Patient feels there is some swelling in her throat and she is somewhat short of breath secondary to this. Patient does have rash in the area were tape was present. Patient feels somewhat flushed. Patient did go to urgent care yesterday and received a shot of Decadron with mild improvement of symptoms. - Related Data Home Medications Medication Instructions Recorded Confirmed Montelukast [Singulair] 10 mg PO HS 07/14/13 06/10/17 HYDROmorphone [Dilaudid] 4 mg PO Q4-6H PRN 08/03/13 06/10/17 clonazePAM [KlonoPIN] 0.5 mg PO TID PRN 01/25/15 06/10/17 Fluticasone/Vilanterol [Breo 1 puff INHALATION RT-DAILY 11/19/15 06/10/17 Ellipta 200-25 Mcg INH] hydrOXYzine PAMOATE [Vistaril] 100 mg PO Q4-6H PRN 11/19/15 06/10/17 Xeomin Inj 1 injection IM Q90D 12/11/15 06/10/17 Promethaz-Cod 6.25-10 mg/5 ml 5 ml PO Q4-6H PRN 03/06/16 06/10/17 [Phenergan with Codeine] Mometasone Inhalr 220 Mcg/Puff 2 puff INHALATION RT-DAILY 03/07/16 06/10/17 [Asmanex] DULoxetine HCL [Cymbalta] 90 mg PO DAILY 11/13/16 06/29/17 Cholestyramine (with Sugar) 4 gm PO BID 01/05/17 06/10/17 [Questran Packet] Esomeprazole Magnesium [NexIUM] 40 mg PO DAILY 01/05/17 06/10/17 Fexofenadine/Pseudoephedrine 1 tab PO DAILY 01/05/17 06/10/17 [Renetta-D 24 Hour Tablet] Fluconazole [Diflucan] 200 mg PO DAILY PRN 01/05/17 06/10/17 Fluticasone Nasal [place] [Flonase 2 puff NASAL BID 01/05/17 06/10/17 Nasal [place]] Meclizine [Antivert] 12.5 mg PO Q8HR PRN 01/05/17 06/10/17 Meloxicam [Mobic] 15 mg PO DAILY 01/05/17 06/10/17 Prochlorperazine [Compazine] 10 mg PO Q8H PRN 01/05/17 06/10/17 traZODone HCL 150 mg PO HS 01/05/17 06/10/17 Hydrocodone/Chlorphen P-Stirex 5 ml PO Q12HR PRN 03/31/17 06/10/17 [Tussionex] Cholecalciferol (Vitamin D3) 12,000 unit PO DAILY 06/09/17 06/10/17 [Vitamin D3] Ferrous Sulfate [Feosol] 325 mg PO DAILY 06/09/17 06/10/17 Mirtazapine [Remeron] 15 mg PO TID 06/09/17 06/10/17 Xopenex Updraft 1 dose INHALATION Q6HR PRN 06/09/17 06/10/17 traMADol HCL [Ultram] 50 mg PO Q4-6H PRN 06/09/17 06/10/17 Previous Rx's Medication Instructions Recorded Benzonatate [Tessalon Perles] 200 mg PO TID #15 cap 04/02/17 Allergies Allergy/AdvReac Type Severity Reaction Status Date / Time Sulfa (Sulfonamide Allergy Severe Rash/Hives Verified 06/29/17 10:44 Antibiotics) adhesive Allergy Rash/Hives Verified 06/29/17 10:44 alcohol Allergy Rash/Hives Verified 06/29/17 10:44 [From Mastisol Adhesive] amoxicillin Allergy Rash/Hives Verified 06/29/17 10:44 glatiramer (copolymer 1) Allergy Unknown Verified 06/29/17 10:44 [From Copaxone] gum mastic Allergy Rash/Hives Verified 06/29/17 10:44 [From Mastisol Adhesive] interferon beta-1b Allergy Unknown Verified 06/29/17 10:44 [From Betaseron] methyl salicylate Allergy Rash/Hives Verified 06/29/17 10:44 [From Mastisol Adhesive] storax Allergy Rash/Hives Verified 06/29/17 10:44 [From Mastisol Adhesive] sulfamethoxazole Allergy Rash/Hives Verified 06/29/17 10:44 [From Bactrim] trimethoprim [From Bactrim] Allergy Rash/Hives Verified 06/29/17 10:44 bupropion HCl AdvReac Severe Rash/Hives Verified 06/29/17 10:44 [From Wellbutrin] gluten AdvReac Severe Nausea & Verified 06/29/17 10:44 Vomiting & Diarrhea interferon beta AdvReac Severe Rash/Hives Verified 06/29/17 10:44 interferon beta-1a AdvReac Severe Rash/Hives Verified 06/29/17 10:44 [From Avonex] lamotrigine [From Lamictal] AdvReac Severe Rash/Hives Verified 06/29/17 10:44 milk AdvReac Severe Nausea & Verified 06/29/17 10:44 Vomiting oxaprozin [From Daypro] AdvReac Severe Rash/Hives Verified 06/29/17 10:44 Penicillins AdvReac Severe Rash/Hives Verified 06/29/17 10:44 azithromycin AdvReac Unknown Rash/Hives, Verified 06/29/17 10:44 RED SKIN, ITCHING doxycycline AdvReac Unknown Rash/Hives Verified 06/29/17 10:44 latex AdvReac Unknown Blisters Verified 06/29/17 10:44 albumin human AdvReac Rash/Hives Verified 06/29/17 10:44 [From Rebif (with albumin)] dicyclomine [From Bentyl] AdvReac Rash/Hives Verified 06/29/17 10:44 duloxetine [From Cymbalta] AdvReac Unknown Verified 06/29/17 10:44 wheat AdvReac Nausea & Verified 06/29/17 10:44 Vomiting & Diarrhea cow's milk Allergy Unknown Uncoded 06/29/17 10:44 STERISTRIPS AdvReac Severe BLISTERS Uncoded 06/29/17 10:44 TO SKIN Review of Systems ROS Statement: Those systems with pertinent positive or pertinent negative responses have been documented in the HPI. ROS Other: All systems not noted in ROS Statement are negative. Constitutional: Denies: fever Eyes: Denies: eye pain ENT: Denies: ear pain Respiratory: Reports: dyspnea. Denies: cough Cardiovascular: Denies: chest pain Endocrine: Denies: fatigue Gastrointestinal: Denies: abdominal pain Genitourinary: Denies: dysuria Musculoskeletal: Denies: back pain Skin: Reports: rash Neurological: Denies: weakness Past Medical History Past Medical History: Asthma, COPD, Fibromyalgia, GERD/Reflux, Hypertension, Neurologic Disorder, Osteoarthritis (OA), Sleep Apnea/CPAP/BIPAP, Supraventricular Tachycardia (SVT), Syncope Additional Past Medical History / Comment(s): multiple sclerosis,optic neuritis, anemia,migraines,adrenal insufficiency,auto immune hepatitis, avascular necrosis., SVT, POTS., BROKE RIGHT ANKLE AND WEARING WALKIN BOOT., USES CANE PRN.,STATES CHRONIC SINUS INFECTIONS FROM C- PAP SO SHE DOES NOT USE., STATES BAD COUGH LAST COUPLE DAYS. History of Any Multi-Drug Resistant Organisms: None Reported Past Surgical History: Bowel Resection, Cholecystectomy, Heart Catheterization, Hysterectomy, Joint Replacement, Orthopedic Surgery, Tonsillectomy Additional Past Surgical History / Comment(s): sinus surgery,blepharoplasty jayleen eyes,POWER PORT -IMPLANTABLE PORT-under right clavicle-bowel adhesions, rt knee replacement , 8 INCH BOWEL REMOVED, jayleen total hip replacement.03-07-16 BRONCHOSCOPY Past Anesthesia/Blood Transfusion Reactions: Blood Transfusion Reaction Additional Past Anesthesia/Blood Transfusion Reaction / Comment(s): HX OF BLOOD TRANSFUSION : HAS CARD STATING K ANTIBODY AFTER RECEIVING A TRANSFUSION Past Psychological History: Anxiety, Depression Smoking Status: Never smoker Past Alcohol Use History: None Reported Past Drug Use History: None Reported - Past Family History Mother Family Medical History: Hypertension Father Family Medical History: COPD, Hypertension Additional Family Medical History / Comment(s): Father at the age of 69 yrs from emphysema Brother(s) Additional Family Medical History / Comment(s): Brother-[place] X2 General Exam Limitations: no limitations General appearance: alert, in no apparent distress Head exam: Present: atraumatic Eye exam: Present: normal appearance, PERRL ENT exam: Present: normal oropharynx Neck exam: Present: other (Anterior neck with mild pink erythema and swelling. Right anterior neck with mild swelling near surgical incision site.) Respiratory exam: Present: normal lung sounds bilaterally Cardiovascular Exam: Present: regular rate, normal rhythm GI/Abdominal exam: Present: soft. Absent: tenderness Extremities exam: Present: normal inspection Neurological exam: Present: alert Psychiatric exam: Present: normal affect, normal mood Skin exam: Present: rash (Facial flushing. Left shoulder with urticarial appearing rash. Right lower chest with several vesicles in the area of previous tape placement.) Course Vital Signs 07/20/17 07/20/17 07/20/17 12:08 13:32 15:16 Temperature 97.2 F L Pulse Rate 96 79 92 Respiratory 20 18 18 Rate Blood Pressure 125/73 111/60 119/70 O2 Sat by Pulse 97 98 96 Oximetry - Reevaluation(s) Reevaluation #1: 07/20/17 14:03 Patient reevaluated and unchanged. Case was discussed with Dr. terry who is familiar with this patient. 07/20/17 15:58 Dr. Saunders did come evaluate the patient and is comfortable observing. He does recommend admission to [facility] which the patient requested. He recommends computed tomography scan of the neck and antibiotics for possible early infection. Case was discussed in detail with Dr. Evans, who will admit. 07/20/17 15:59 Patient does not meet sepsis criteria at this time. Disposition Clinical Impression: Allergic reaction Disposition: ADMITTED IP TO THIS HOSP Is patient prescribed a controlled substance at d/c from ED?: No Referrals: Seferino Terry DO [Primary Care Provider] - 1-2 days Decision Time: 15:58
[2017-07-20] MEDS ORDERED: ACETAMINOPHEN TAB 500 MG TAB PO STA (14:50)
[2017-07-20] MEDS ORDERED: RX INFO: IV CONTRAST WAS GIVEN 1 EACH MISC MISCELLANE PRN (16:01)
[2017-07-20] MEDS ORDERED: LEVOFLOXACIN 750MG-D5W PMX 750 MG in DEXTROSE/WATER 1 150ML.BAG IVPB STA (16:01)
[2017-07-20 16:09] LABS: Basophils % (A) 0 %; Eosinophils # (A) 0.1 k/uL (0-0.7); Eosinophils % (A) 1 %; HCT 37.6 % (34.0-46.0); HGB 12.4 gm/dL (11.4-16.0); Lymphocytes # (A) 0.7 k/uL (1.0-4.8); Lymphocytes % (A) 7 %; MCH 30.8 pg (25.0-35.0); MCHC 33.1 g/dL (31.0-37.0); MCV 92.9 fL (80.0-100.0); Mean Platelet Volume 6.8; Monocytes # (A) 0.3 k/uL (0-1.0); Monocytes % (A) 3 %; Neutrophils # (A) 8.4 k/uL (1.3-7.7); Neutrophils % (A) 87 %; Platelet Count 372 k/uL (150-450); RBC 4.04 m/uL (3.80-5.40); RDW 13.6 % (11.5-15.5); WBC 9.7 k/uL (3.8-10.6)
[2017-07-20] MEDS ORDERED: NALOXONE 0.4 MG/ML 1 ML VIAL IV PRN (16:11)
[2017-07-20] MEDS ORDERED: SODIUM CHLORIDE 0.9% 1,000 ML IV SCH (16:15)
[2017-07-20 16:20] LABS: ALT 28 U/L (9-52); AST 20 U/L (14-36); Albumin 4.1 g/dL (3.5-5.0); Alkaline Phosphatase 92 U/L (38-126); Anion Gap 14 mmol/L; Blood Urea Nitrogen 12 mg/dL (7-17); Calcium 9.3 mg/dL (8.4-10.2); Carbon Dioxide 20 mmol/L (22-30); Chloride 107 mmol/L (98-107); Glucose 123 mg/dL (74-99); Potassium 4.2 mmol/L (3.5-5.1); Sodium 141 mmol/L (137-145); Total Bilirubin 0.3 mg/dL (0.2-1.3); Total Protein 6.9 g/dL (6.3-8.2)
--- NOTE | 2017-07-20 16:50 | CT ---
EXAMINATION TYPE: CT soft tissue neck w con DATE OF EXAM: 07/20/2017 HISTORY: Neck swelling and pain post operative stimulator placement COMPARISON: 03/16/2017 CT DLP: 1212 mGycm. Automated Exposure Control for Dose Reduction was Utilized. TECHNIQUE: CT scan of the neck is performed with IV Contrast, patient injected with 100 mL of Isovue 300, axial images are obtained, coronal and sagittal reformatted images are reviewed. FINDINGS: Airway: No gross abnormality seen. Airway remains patent. Parotid/submandibular glands: There is complete atrophy of the right submandibular gland. Less than mandibular gland is unremarkable. There is moderate bilateral symmetric atrophy of the parotid glands . Carotid/Vascular Structures: No hemodynamically significant stenosis. Osseous Structures: Osseous structures appear intact with mild multilevel degenerative change. No ray tebral body height loss. Other: There are numerous foci of air within the right sublingual space and hospitalist program director space without focal fluid collection. Hypoglossal nerve stimulator has been placed. Nonenlarged right submandibula r lymph node measures 5.7 cm in short axis. There is fascial thickening on the right and phlegmonous changes within the submental and right sublingual spaces. Extension is seen to the right submental sk in surface from recent surgical intervention. Punctate foci of air are also seen tracking along the r ight neck anterior to the thyroid gland without extension into the superior mediastinum. Right-sided cardiac device is partially visualized. Lung apices show multifocal groundglass opacities that may relate to fluid overload or atelectasis. IMPRESSION: Phlegmonous changes, subcutaneous emphysema, fascial plane thickening, and subcutaneous fat stranding located within the right sublingual space, hospitalist program director space, and submental space relating to the rec ent known intervention of the hypoglossal nerve stimulator. No focal fluid collection to suggest absc ess.
[2017-07-20 17:20] VITALS: RESP 16
[2017-07-20] MEDS ORDERED: methylPREDNISolone SOD SUCCI 125 MG/2 ML VIAL IV SCH (18:00)
[2017-07-20] MEDS ORDERED: ONDANSETRON 4 MG/2 ML VIAL IVP PRN (18:19)
[2017-07-20] MEDS ORDERED: ACETAMINOPHEN TAB 325 MG TAB PO PRN (18:19)
[2017-07-20] MEDS ORDERED: MELATONIN 3 MG TABLET PO PRN (18:19)
[2017-07-20] MEDS ORDERED: HYDROmorphone 4 MG TABLET PO PRN (18:28)
[2017-07-20] MEDS ORDERED: PROCHLORPERAZINE 10 MG TAB PO PRN (18:28)
[2017-07-20] MEDS ORDERED: MECLIZINE 12.5 MG TAB PO PRN (18:28)
[2017-07-20] MEDS ORDERED: PROMETHAZ-COD 6.25-10 MG/5 ML 5 ML CUP PO PRN (18:28)
[2017-07-20] MEDS ORDERED: NON-FORMULARY DRUG (Chlorphen-Hydrocod 8-10mg/5ml 5 ML) PO PRN (18:28)
[2017-07-20] MEDS: SODIUM CHLORIDE 0.45% 1,000 ML IV SCH (18:34)
[2017-07-20] MEDS: diphenhydrAMINE 50 MG/ML 1 ML VIAL IVP SCH (18:37)
[2017-07-20] MEDS: MORPHINE SULFATE 4 MG/ML SYRINGE IVP PRN (18:38)
[2017-07-20] MEDS ORDERED: ALBUTEROL NEBULIZED 2.5 MG/3 ML INHALATION PRN (18:40)
--- NOTE | 2017-07-20 18:43 | P.HPIM ---
History of Present Illness H&P Date: 07/20/17 Chief Complaint: neck swelling Patient is a 52-year-old female with a complex medical history including COPD/asthma, fibromyalgia, multiple sclerosis, sleep apnea, adrenal insufficiency (came off steroids 4 weeks ago) and multiple other conditions as listed below who presented to the ER with complaints of right-sided neck swelling. She has undergone placement of a hypoglossal stimulator at [facility] 5 days ago. It was outpatient procedure and she was discharged home. She works her pressure dressing for approximately 48 hours she then removed a pressure dressing. Yesterday she noted increasing erythema with blisters to the area and felt itchy. She thought she might have had an ALLERGIC reaction to the Tegaderm and she has a history of ALLERGY to adhesive tape. She sought care at an urgent care and received a dose of Decadron. Today her erythema and blistering is better but she has developed worsening mass on the right side of her neck that is hard. In the ER she underwent an extensive examination. Her initial vital signs are found be within normal limits. Initial laboratory examination was unremarkable other than a glucose of 123. She also underwent a CAT scan of the neck. Patient seen and examined at bedside. She states that the right side of her neck is painful and becoming more enlarged. The area is hard and feels like a golf fall. She states right side of her neck is painful. She also complains of difficulty swallowing. It is more difficult to swallow solids but she is also having some difficulty with liquids. She feels short of breath secondary to the swelling. She also complains of a headache. She has had some chills but no fevers. She has had some nausea but has not ate today and has not taken any of her opiate medications. She is also having some right upper quadrant pain which she believes is related to the incision on the right side of her thorax. She is otherwise in her typical state of health. No difficulty controlling secretions. She recently came off of Cortef 4 weeks ago. She follows which ready for her adrenal insufficiency. She also has a history of multiple sclerosis but is not currently on any treatment secondary to cost of Tecfidera as well as inability to tolerate interferon. Review of Systems Pertinent positives: + Right-sided neck pain, + difficulty swallowing, + headache, + nausea Pertinent positives and negatives as discussed in HPI, a complete review of systems was performed and all other systems are negative. Past Medical History Past Medical History: Asthma, COPD, Fibromyalgia, GERD/Reflux, Hypertension, Osteoarthritis (OA), Sleep Apnea/CPAP/BIPAP, Supraventricular Tachycardia (SVT) , Syncope Additional Past Medical History / Comment(s): multiple sclerosis,optic neuritis, anemia,migraines,adrenal insufficiency,auto immune hepatitis, avascular necrosis , POTS,STATES CHRONIC SINUS INFECTIONs, hypothyroidism History of Any Multi-Drug Resistant Organisms: None Reported Past Surgical History: Bowel Resection, Cholecystectomy, Heart Catheterization, Hysterectomy, Joint Replacement, Orthopedic Surgery, Tonsillectomy Additional Past Surgical History / Comment(s): sinus surgery,blepharoplasty jayleen eyes,POWER PORT -IMPLANTABLE PORT-under right clavicle-bowel adhesions, rt knee replacement , 8 INCH BOWEL REMOVED, jayleen total hip replacement. Multiple BRONCHOSCOPY. Inspire device (sleep apnea) Past Anesthesia/Blood Transfusion Reactions: Blood Transfusion Reaction Additional Past Anesthesia/Blood Transfusion Reaction / Comment(s): HX OF BLOOD TRANSFUSION : HAS CARD STATING K ANTIBODY AFTER RECEIVING A TRANSFUSION Past Psychological History: Anxiety, Depression Smoking Status: Never smoker Past Alcohol Use History: None Reported Past Drug Use History: None Reported Additional History: Using a cane intermittently. - Past Family History Mother Family Medical History: Hypertension Father Family Medical History: COPD, Hypertension Additional Family Medical History / Comment(s): Father at the age of 69 yrs from emphysema Brother(s) Additional Family Medical History / Comment(s): Brother-[place] X2 Medications and Allergies Home Medications Medication Instructions Recorded Confirmed Type Montelukast [Singulair] 10 mg PO HS 07/14/13 07/20/17 History clonazePAM [KlonoPIN] 0.5 mg PO TID PRN 01/25/15 07/20/17 History Fluticasone/Vilanterol [Breo 1 puff INHALATION RT-DAILY 11/19/15 07/20/17 History Ellipta 200-25 Mcg INH] hydrOXYzine PAMOATE [Vistaril] 100 mg PO Q4-6H PRN 11/19/15 07/20/17 History Xeomin Inj 1 injection IM Q90D 12/11/15 07/20/17 History Promethaz-Cod 6.25-10 mg/5 ml 5 ml PO Q4-6H PRN 03/06/16 07/20/17 History [Phenergan with Codeine] Mometasone Inhalr 220 Mcg/Puff 2 puff INHALATION RT-DAILY 03/07/16 07/20/17 History [Asmanex] DULoxetine HCL [Cymbalta] 60 mg PO DAILY 11/13/16 07/20/17 History Cholestyramine (with Sugar) 4 gm PO BID 01/05/17 07/20/17 History [Questran Packet] Esomeprazole Magnesium [NexIUM] 40 mg PO DAILY 01/05/17 07/20/17 History Fexofenadine/Pseudoephedrine 1 tab PO DAILY 01/05/17 07/20/17 History [Renetta-D 24 Hour Tablet] Fluconazole [Diflucan] 200 mg PO DAILY PRN 01/05/17 07/20/17 History Fluticasone Nasal Jasper [Flonase 2 puff NASAL BID 01/05/17 07/20/17 History Nasal Jasper] Meclizine [Antivert] 12.5 mg PO Q8HR PRN 01/05/17 07/20/17 History Prochlorperazine [Compazine] 10 mg PO Q8H PRN 01/05/17 07/20/17 History Ferrous Sulfate [Feosol] 325 mg PO W/SUPPER 06/09/17 07/20/17 History Mirtazapine [Remeron] 15 mg PO TID 06/09/17 07/20/17 History CHLORPHEN-HYDROcod 8-10mg/5ml 5 ml PO Q12HR PRN 07/20/17 07/20/17 History [Tussionex] Cholecalciferol [Vitamin D3] 12,000 unit PO DAILY 07/20/17 07/20/17 History Clindamycin HCl 300 mg PO Q12HR 07/20/17 07/20/17 History HYDROcodone/APAP 5-325MG [Wayne 1 tab PO Q4HR PRN 07/20/17 07/20/17 History 5-325] HYDROmorphone [Dilaudid] 4 mg PO Q4-6H PRN 07/20/17 07/20/17 History Hydrocortisone [Cortef] 5 mg PO BID@0900,1200 07/20/17 07/20/17 History traZODone HCL 100 mg PO HS 07/20/17 07/20/17 History Allergies Allergy/AdvReac Type Severity Reaction Status Date / Time Sulfa (Sulfonamide Allergy Severe Rash/Hives Verified 06/29/17 10:44 Antibiotics) adhesive Allergy Rash/Hives Verified 06/29/17 10:44 alcohol Allergy Rash/Hives Verified 07/20/17 16:45 [From Mastisol Adhesive] amoxicillin Allergy Rash/Hives Verified 07/20/17 16:45 glatiramer (copolymer 1) Allergy Unknown Verified 07/20/17 16:45 [From Copaxone] gum mastic Allergy Rash/Hives Verified 07/20/17 16:45 [From Mastisol Adhesive] interferon beta-1b Allergy Unknown Verified 07/20/17 16:45 [From Betaseron] methyl salicylate Allergy Rash/Hives Verified 07/20/17 16:45 [From Mastisol Adhesive] mold Allergy Unknown Verified 07/20/17 16:45 ragweed pollen Allergy Unknown Verified 07/20/17 16:45 storax Allergy Rash/Hives Verified 07/20/17 16:45 [From Mastisol Adhesive] sulfamethoxazole Allergy Rash/Hives Verified 07/20/17 16:45 [From Bactrim] trimethoprim [From Bactrim] Allergy Rash/Hives Verified 07/20/17 16:45 bupropion HCl AdvReac Severe Rash/Hives Verified 07/20/17 16:45 [From Wellbutrin] gluten AdvReac Severe Nausea & Verified 07/20/17 16:45 Vomiting & Diarrhea interferon beta AdvReac Severe Rash/Hives Verified 07/20/17 16:45 interferon beta-1a AdvReac Severe Rash/Hives Verified 07/20/17 16:45 [From Avonex] lamotrigine [From Lamictal] AdvReac Severe Rash/Hives Verified 07/20/17 16:45 milk AdvReac Severe Nausea & Verified 07/20/17 16:45 Vomiting oxaprozin [From Daypro] AdvReac Severe Rash/Hives Verified 07/20/17 16:45 Penicillins AdvReac Severe Rash/Hives Verified 06/29/17 10:44 azithromycin AdvReac Unknown Rash/Hives, Verified 07/20/17 16:45 RED SKIN, ITCHING doxycycline AdvReac Unknown Rash/Hives Verified 07/20/17 16:45 latex AdvReac Unknown Blisters Verified 07/20/17 16:45 albumin human AdvReac Rash/Hives Verified 07/20/17 16:45 [From Rebif (with albumin)] dicyclomine [From Bentyl] AdvReac Rash/Hives Verified 07/20/17 16:45 wheat AdvReac Nausea & Verified 07/20/17 16:45 Vomiting & Diarrhea cow's milk Allergy Unknown Uncoded 06/29/17 10:44 DUST Allergy Unknown Uncoded 07/20/17 16:45 STERISTRIPS AdvReac Severe BLISTERS Uncoded 06/29/17 10:44 TO SKIN Physical Exam Osteopathic Statement: *. No significant issues noted on an osteopathic structural exam other than those noted in the History and Physical/Consult. Vitals: Vital Signs Temp Pulse Pulse Resp BP BP Pulse Ox 07/20/17 17:16 97.5 F L 83 16 114/71 95 07/20/17 16:50 98.0 F 60 18 130/69 97 07/20/17 15:16 92 18 119/70 96 07/20/17 13:32 79 18 111/60 98 07/20/17 12:08 97.2 F L 96 20 125/73 97 Intake and Output 07/20/17 07/20/17 07/20/17 06:59 14:59 22:59 Other: Weight 104.326 kg General: non toxic, mild distress, appears at stated age, normal weight Derm: Incision right neck, right clavical, right lateral chest wall, without drainage or malodor or erythema,no unusual ecchymoses, warm, dry Head: atraumatic, normocephalic, symmetric Eyes: EOMI, no lid lag, anicteric sclera, pupils equal round reactive to light ENT: Nose and ears atraumatic, + thrush, no pharyngeal erythema, Neck: No thyromegaly, no cervical lymphadenopathy, trachea midline, 2 cm mass palpalable right neck no flucutance, no erythema. Mouth: no lip lesion, mucus membranes moist, no elevation of the sublingual area Cardiovascular: S1S2 reg, no murmur, positive posterior tibial pulse bilateral, no edema, capillary refill less than 2 seconds Lungs: CTA bilateral, no rhonchi, no rales , no accessory muscle use Abdominal: soft, + tender to palpation RUQ, no guarding, no appreciable organomegaly, normal bowel sounds Ext: no gross muscle atrophy, muscle strength 5 out of 5 in all 4 extremities grossly, no contractures, Neuro: CN II-XI grossly intact, light touch intact all 4 extremities, finger to nose within normal limits, Psych: Alert, oriented, appropriate affect Results CBC & Chem 7: 07/20/17 15:53 07/20/17 15:53 Labs: Abnormal Lab Results - Last 24 Hours (Table) 07/20/17 07/20/17 Range/Units 15:53 15:53 Neutrophils # 8.4 H (1.3-7.7) k/uL Lymphocytes # 0.7 L (1.0-4.8) k/uL Carbon Dioxide 20 L (22-30) mmol/L Glucose 123 H (74-99) mg/dL Comments: CT soft tissue of the neck report reviewed Thrombosis Risk Factor Assmnt - DVT/VTE Prophylaxis DVT/VTE Prophylaxis: Low risk, early ambulation encouraged Assessment and Plan Assessment: Phlegmon right neck after hypoglossal nerve stimulator implantation -Currently awaiting call back from Dr. Orr at [facility] regarding treatment and- Benadryl, Pepcid, and Decadron -Levaquin as empiric antibiotic -Monitor airway for signs of compromise - procalcitonin ordered - monitor BS while on steroids Adrenal insufficiency - monitor for symptoms as steroids decreased. - slowly wean steroids - Follows with Dr. Freedman COPD without exacerabtion - resume home ICS, Singulair, LABA - prn bronchodilators - pulmonary recs ALEXA - now has hypoglossal stimulator Chronic: Hypothyroidism GERD SVT Multiple sclerosis optic neuritis Surrogate decision-maker: Advanced directives on file Tiarra Mone CODE STATUS: Full DVT prophylaxis: SCDs Discussed with: patient, nursing, ED physician Anticipated discharge: undetermined awaiting call back Anticipated discharge place: undetermined A total of 65 minutes was spent on the care of this complex patient more than 50 % of the time was spent in counseling and care coordination.
[2017-07-20 19:12] VITALS: BMI 34.9
[2017-07-20 20:09] LABS: Glucose,Whole Blood 140 mg/dL (75-99)
[2017-07-20] MEDS ORDERED: INSULIN ASPART 100 UNIT/ML 1 ML 10 ML VIAL SQ SCH (21:00)
[2017-07-20] MEDS ORDERED: MONTELUKAST 10 MG TAB PO SCH (21:00)
[2017-07-20] MEDS ORDERED: traZODone HCL 100 MG TAB PO SCH (21:00)
[2017-07-20] MEDS: CHOLESTYRAMINE (WITH SUGAR) 4 GM PACKET PO SCH (21:31)
[2017-07-20] MEDS: MIRTAZAPINE 15 MG TAB PO SCH (21:32)
[2017-07-20] MEDS: clonazePAM 0.5 MG TAB PO PRN (21:32)
[2017-07-20] MEDS: FAMOTIDINE 20 MG/2 ML VIAL IV SCH (21:33)
[2017-07-20] MEDS: FLUTICASONE 50MCG/SPRAY NASAL 16GM NASAL SCH (21:33)
[2017-07-20] MEDS: DEXAMETHASONE SOD PHOSPHATE 10 MG/ML 1 ML VIAL IV SCH (21:34)
[2017-07-20] MEDS: INSULIN ASPART 100 UNIT/ML 1 ML 10 ML VIAL SQ SCH (21:35)
[2017-07-20] MEDS ORDERED: DEXAMETHASONE SOD PHOSPHATE 4 MG/ML 1 ML VIAL IV SCH (22:00)
[2017-07-21] MEDS: diphenhydrAMINE 50 MG/ML 1 ML VIAL IVP SCH ×3 (00:48→12:09)
[2017-07-21] MEDS: MORPHINE SULFATE 4 MG/ML SYRINGE IVP PRN ×2 (06:18→12:13)
[2017-07-21] MEDS: DEXAMETHASONE SOD PHOSPHATE 10 MG/ML 1 ML VIAL IV SCH ×2 (06:20→12:11)
[2017-07-21 06:36] LABS: Glucose,Whole Blood 134 mg/dL (75-99)
--- NOTE | 2017-07-21 06:43 | CONS ---
CONSULTATION DATE OF SERVICE: 07/20/2017 This is a 52-year-old female well known to me. She actually is my primary patient. She recently had a hypoglossal nerve stimulator placed by a physician at [facility]. This was done about a week ago. She has sleep apnea syndrome and that is the reason why she had it placed. Apparently, the surgery went uneventfully. Sometime yesterday, she started developing some symptoms which suggested the possibility of allergic reaction either to tape that was on her skin or to the device itself. She complained of with some difficulty breathing, some throat swelling, a rash. The rash was raised and red. It was in the areas of the tape. It appeared to be local like urticaria. It was somewhat itchy. She was a little flushed. For that reason, she came into the ER and saw Dr. Leong. Dr. Leong called me and I stopped down into the emergency room to see her. We attempted to get the patient transferred back to the hospital and doctor who did the procedure, but despite making many phone calls, there was no response and we ended up just putting the patient in at [facility]. The patient when I saw her in the emergency room was doing reasonably well. Her primary complaint was some mild shortness of breath and some tightness or swelling in her throat areas as well as a rash. PAST MEDICAL HISTORY: Is extensive and includes chronic bronchial asthma, which is severe and persistent, fibromyalgia, GERD, hypertension, multiple sclerosis, optic neuritis, sleep apnea syndrome, SVT, postural orthostatic tachycardia syndrome, migraine cephalgia, adrenal insufficiency, and multiple other medical problems. SURGICAL HISTORY: Includes among other things bowel resection, cholecystectomy, heart catheterization, hysterectomy, joint replacement, tonsillectomy, hypoglossal nerve stimulator as well as multiple bronchoscopies for clearing of airway secretions. SOCIAL HISTORY: Negative tobacco or alcohol use. No illicit drug use. FAMILY HISTORY: Positive for hypertension and COPD. ALLERGIES: ALLERGIES are numerous and include among other things, SULFA ANTIBIOTICS, ADHESIVE TAPES, ALCOHOL, AMOXICILLIN, COPAXONE, . MEDICATIONS: Are extensive also and listed in the MAR. REVIEW OF SYSTEMS: Constitutional: Flushed feeling. Neurologic: Negative. HEENT: Throat swelling and tightness. Cardiovascular: Negative. Pulmonary: Mild shortness of breath. GI/ negative. Immunologic: Negative. Rheumatologic: Negative. Hematologic: Negative. Endocrinologic and dermatologic all negative. PHYSICAL EXAMINATION: Current vital signs include a normal temperature, heart rate about 85, respiratory rate 20, blood pressure 125/80 and a saturation on room air of mid 90s. Appears in no acute distress. Not having any respiratory distress for sure. HEENT examination is grossly unremarkable. She does have a somewhat of a tse face from previous use of steroids. NECK: Supple. Full range of motion. No adenopathy. Incisions are noted. CARDIOVASCULAR EXAMINATION reveals regular rhythm and rate. S1, S2 normal. LUNGS: Actually quite clear. Breath sounds equal. ABDOMEN: Soft. Bowel sounds are heard. EXTREMITIES are intact. There is no cyanosis, clubbing, or edema. SKIN reveals areas a rash in the facial area, neck area and left shoulder area. These are the areas where there was tape. It is somewhat raised. It is a little itchy. It appears to look like urticaria. NEUROLOGIC examination is brief but nonfocal. CT of the neck was reviewed. It suggested some phlegmonous changes, some subcutaneous emphysema, facial plane thickening and subcutaneous fat stranding in the neck area, but there was no evidence to suggest an abscess. Labs look pretty good. CBC was completely normal. Sodium, potassium, chloride normal CO2 20 BUN and creatinine were normal. The rest of the comprehensive metabolic profile was normal. ASSESSMENT: 1. Possible allergic reaction to tape or device. 2. Recent implantation of a hypoglossal nerve stimulator for her sleep apnea syndrome. 3. Multiple other medical problems and comorbidities as listed above, including asthma and postural orthostatic tachycardia syndrome adrenal insufficiency, multiple sclerosis, optic neuritis, etc. PLAN: I did speak to Dr. Leong in the emergency room. I saw the patient in the emergency room. The plan was to admit her to the hospital for some antibiotics, CT scan of the neck and some medications for allergy including Benadryl, steroids, and antagonist. Additional recommendations and suggestions are forthcoming. Prognosis is felt to be good. Should she worsen, we will see if we could transfer her back down to [facility]. MMODL / IJN: [id number] /
[2017-07-21 07:23] LABS: HCT 37.4 % (34.0-46.0); HGB 11.7 gm/dL (11.4-16.0); MCH 29.6 pg (25.0-35.0); MCHC 31.3 g/dL (31.0-37.0); MCV 94.7 fL (80.0-100.0); Mean Platelet Volume 6.6; Platelet Count 376 k/uL (150-450); RBC 3.95 m/uL (3.80-5.40); RDW 13.7 % (11.5-15.5); WBC 8.8 k/uL (3.8-10.6)
[2017-07-21 07:29] LABS: Anion Gap 14 mmol/L; Blood Urea Nitrogen 12 mg/dL (7-17); Calcium 9.2 mg/dL (8.4-10.2); Carbon Dioxide 21 mmol/L (22-30); Chloride 107 mmol/L (98-107); Glucose 123 mg/dL (74-99); Potassium 4.5 mmol/L (3.5-5.1); Sodium 142 mmol/L (137-145)
[2017-07-21] MEDS ORDERED: MOMETASONE INHALATION SCH (08:00)
[2017-07-21] MEDS ORDERED: SYMBICORT 160-4.5 MCG INHALER INHALATION SCH (08:00)
[2017-07-21] MEDS: INSULIN ASPART 100 UNIT/ML 1 ML 10 ML VIAL SQ SCH ×2 (08:33→12:12)
[2017-07-21] MEDS ORDERED: LORATADINE-PSEUDOEPH 5-120 MG 1 EACH TAB.ER.12H PO SCH (09:00)
[2017-07-21] MEDS ORDERED: BACITRACIN 500 UNIT/GM OINT 28.4 GM TUBE TOPICAL SCH (09:00)
[2017-07-21] MEDS ORDERED: FLUCONAZOLE 150 MG TAB PO SCH (09:00)
[2017-07-21] MEDS ORDERED: CHOLECALCIFEROL 1,000 UNIT TAB PO SCH (09:00)
[2017-07-21] MEDS ORDERED: DULoxetine HCL 60 MG CAPSULE.DR PO SCH (09:00)
[2017-07-21] MEDS ORDERED: PANTOPRAZOLE 40 MG TABLET PO SCH (09:00)
[2017-07-21] MEDS: FLUTICASONE 50MCG/SPRAY NASAL 16GM NASAL SCH (09:04)
[2017-07-21] MEDS: MIRTAZAPINE 15 MG TAB PO SCH (09:05)
[2017-07-21] MEDS: FAMOTIDINE 20 MG/2 ML VIAL IV SCH (09:05)
[2017-07-21] MEDS: CHOLESTYRAMINE (WITH SUGAR) 4 GM PACKET PO SCH (09:06)
[2017-07-21] MEDS: SODIUM CHLORIDE 0.45% 1,000 ML IV SCH (09:11)
[2017-07-21] MEDS: clonazePAM 0.5 MG TAB PO PRN (09:18)
[2017-07-21 12:12] LABS: Glucose,Whole Blood 113 mg/dL (75-99)
[2017-07-21 15:50] VITALS: BP 124/58; PULSE 77; TEMP 98.3
[2017-07-21 15:50] LABS: Hemoglobin A1C 5.6 % (4.0-6.0)
[2017-07-21] MEDS ORDERED: LEVOFLOXACIN 750MG-D5W PMX 750 MG in DEXTROSE/WATER 1 150ML.BAG IVPB SCH (16:00)
--- NOTE | 2017-07-21 17:10 | P.DS ---
Providers Date of admission: 07/20/17 15:59 Expected date of discharge: 07/21/17 Attending physician: Daphne Evans DO Consults: 07/20/17 16:11 Consult Physician Stat Consulting Provider: Seferino Dougheryt Reason/Comments: dyspnea Do you want consulting provider notified?: Already Contacted Primary care physician: Seferino Dougherty - Discharge Diagnosis(es) (1) Phlegmon Current Visit: Yes Status: Acute (2) Localized swelling, mass and lump, neck Current Visit: Yes Status: Acute (3) ALEXA (obstructive sleep apnea) Current Visit: Yes Status: Acute (4) Adrenal insufficiency Current Visit: No Status: Acute (5) COPD without exacerbation Current Visit: Yes Status: Acute (6) Hypothyroidism Current Visit: Yes Status: Acute (7) Morbid obesity Current Visit: Yes Status: Acute Hospital Course: Patient is a 52-year-old female with a complex medical history including COPD/asthma, fibromyalgia, multiple sclerosis, sleep apnea, adrenal insufficiency (came off steroids 4 weeks ago) and multiple other conditions as listed below who presented to the ER with complaints of right-sided neck swelling. She has undergone placement of a hypoglossal stimulator at [facility] 5 days ago. It was outpatient procedure and she was discharged home. She wore her pressure dressing for approximately 48 hours, she then removed a pressure dressing. On 07/19 she noted increasing erythema with blisters to the area and felt itchy everywhere. She thought she might have had an ALLERGIC reaction to the Tegaderm and she has a history of ALLERGY to adhesive tape. She sought care at an urgent care and received a dose of Decadron. On 07/20 her erythema and blistering is better but she has developed worsening mass on the right side of her neck that is hard. In the ER she underwent an extensive examination. Her initial vital signs are found be within normal limits. Initial laboratory examination was unremarkable other than a glucose of 123. She also underwent a CAT scan of the neck , but no abscess. She was started on Decadron, Pepcid, and Benadryl for possible ALLERGIC reaction. She was also started on Levaquin for possible early abscess formation. Transfer center at [facility] was contacted who recommended observation here for 24 hours when discharge home with close surgical follow-up. Patient was monitored overnight for 24 hours and did well. The swelling appears less on day of discharge. She was able to eat and drink normally. She is not having any difficulty controlling her secretions. Lungs were clear. She was determined stable for discharge home. She does have an history of adrenal insufficiency and she had been off of Cortef. She will resume Cortef 5 mg twice a day. Luckily she has an appointment with her floor finisher helper tomorrow and help adjust these medicines. I spoke with Dr. Cast her surgeon who recommended continuing the Levaquin and will see her on Thursday for a follow-up appointment. He will also email her with her appointment. She was determined stable for discharge home. Calcitonin did come back just after discharge and was 0.04 indicating that this is likely not infectious in origin. However with phlegmon would still recommend treatment with levaquin until seen by Dr. Cast. Patient seen and examined at bedside. States that she is still having some neck pain. Headache is better. She is eating and drinking but is still difficult. No nausea or vomiting. Agrees of the swelling is going down. Nervous about going home I assured her that the swelling was going down her airway did not seem to be compromised and that it would benefit her from following up with Dr. Ambriz tomorrow. Vital signs reviewed and stable. General: non toxic, no distress, appears at stated age, obese Derm: warm, dry, erythema of face, face disease Head: atraumatic, normocephalic, symmetric Eyes: EOMI, no lid lag, anicteric sclera Mouth: no lip lesion, mucus membranes moist, swelling with palpable mass right side of neck approximately 3 cm and decreased from yesterday. Also softer than yesterday. Cardiovascular: S1S2 reg, no murmur, positive posterior tibial pulse bilateral, Lungs: CTA bilateral, no rhonchi, no rales , no accessory muscle use Ext: no gross muscle atrophy, no edema, no contractures Neuro: CN II-XI grossly intact, no focal neuro deficits Psych: Alert, oriented, appropriate affect A total of 35 minutes of time were spent preparing this complex discharge summary . Pertinent Studies: CT neck: Phlegmonous changes, subcutaneous emphysema and fascial plane thickening with subcutaneous fat stranding within the right sublingual space Patient Condition at Discharge: Good Plan - Discharge Summary Discharge Rx Participant: No New Discharge Prescriptions: New Levofloxacin [Levaquin] 500 mg PO DAILY 5 Days #5 tab Nystatin 500,000 unit PO QID 14 Days #1 bottle Continue clonazePAM [KlonoPIN] 0.5 mg PO TID PRN PRN Reason: Anxiety hydrOXYzine PAMOATE [Vistaril] 100 mg PO Q4-6H PRN PRN Reason: takes w/ dilaudid for itching DULoxetine HCL [Cymbalta] 60 mg PO DAILY Meclizine [Antivert] 12.5 mg PO Q8HR PRN PRN Reason: dizziness Fexofenadine/Pseudoephedrine [Renetta-D 24 Hour Tablet] 1 tab PO DAILY Esomeprazole Magnesium [NexIUM] 40 mg PO DAILY Prochlorperazine [Compazine] 10 mg PO Q8H PRN PRN Reason: Nausea Cholestyramine (with Sugar) [Questran Packet] 4 gm PO BID Ferrous Sulfate [Iron (65 MG Elemental)] 325 mg PO W/SUPPER Mirtazapine [Remeron] 15 mg PO TID HYDROcodone/APAP 5-325MG [[place] 5-325] 1 tab PO Q4HR PRN PRN Reason: Pain traZODone HCL 100 mg PO HS HYDROmorphone [Dilaudid] 4 mg PO Q4-6H PRN PRN Reason: Pain Hydrocortisone [Cortef] 5 mg PO BID@0900,1200 #20 tab Discontinued Xeomin Inj 1 injection IM Q90D Fluconazole [Diflucan] 200 mg PO DAILY PRN PRN Reason: WITH ANTIBIOTICS Clindamycin HCl 300 mg PO Q12HR No Action Montelukast [Singulair] 10 mg PO HS Fluticasone/Vilanterol [Breo Ellipta 200-25 Mcg INH] 1 puff INHALATION RT- DAILY Promethaz-Cod 6.25-10 mg/5 ml [Phenergan with Codeine] 5 ml PO Q4-6H PRN PRN Reason: Cough Mometasone Inhalr 220 Mcg/Puff [Asmanex] 2 puff INHALATION RT-DAILY Fluticasone Nasal [place] [Flonase Nasal [place]] 2 puff NASAL BID CHLORPHEN-HYDROcod 8-10mg/5ml [Tussionex] 5 ml PO Q12HR PRN PRN Reason: Cough Cholecalciferol [Vitamin D3] 12,000 unit PO DAILY Discharge Medication List Montelukast [Singulair] 10 mg PO HS 05/22/14 [History] clonazePAM [KlonoPIN] 0.5 mg PO TID PRN 01/25/15 [History] Fluticasone/Vilanterol [Breo Ellipta 200-25 Mcg INH] 1 puff INHALATION RT-DAILY 11/19/15 [History] hydrOXYzine PAMOATE [Vistaril] 100 mg PO Q4-6H PRN 11/19/15 [History] Promethaz-Cod 6.25-10 mg/5 ml [Phenergan with Codeine] 5 ml PO Q4-6H PRN [History] Mometasone Inhalr 220 Mcg/Puff [Asmanex] 2 puff INHALATION RT-DAILY 03/07/16 [ History] DULoxetine HCL [Cymbalta] 60 mg PO DAILY 11/13/16 [History] Cholestyramine (with Sugar) [Questran Packet] 4 gm PO BID 01/05/17 [History] Esomeprazole Magnesium [NexIUM] 40 mg PO DAILY 01/05/17 [History] Fexofenadine/Pseudoephedrine [Renetta-D 24 Hour Tablet] 1 tab PO DAILY 01/05/17 [History] Fluticasone Nasal [place] [Flonase Nasal [place]] 2 puff NASAL BID 01/05/17 [History ] Meclizine [Antivert] 12.5 mg PO Q8HR PRN 01/05/17 [History] Prochlorperazine [Compazine] 10 mg PO Q8H PRN 01/05/17 [History] Ferrous Sulfate [Iron (65 MG Elemental)] 325 mg PO W/SUPPER 06/09/17 [History] Mirtazapine [Remeron] 15 mg PO TID 06/09/17 [History] CHLORPHEN-HYDROcod 8-10mg/5ml [Tussionex] 5 ml PO Q12HR PRN 07/20/17 [History] Cholecalciferol [Vitamin D3] 12,000 unit PO DAILY 07/20/17 [History] HYDROcodone/APAP 5-325MG [[place] 5-325] 1 tab PO Q4HR PRN 07/20/17 [History] HYDROmorphone [Dilaudid] 4 mg PO Q4-6H PRN 07/20/17 [History] traZODone HCL 100 mg PO HS 07/20/17 [History] Hydrocortisone [Cortef] 5 mg PO BID@0900,1200 #20 tab 07/21/17 [Rx] Levofloxacin [Levaquin] 500 mg PO DAILY 5 Days #5 tab 07/21/17 [Rx] Nystatin 500,000 unit PO QID 14 Days #1 bottle 07/21/17 [Rx] Follow up Appointment(s)/Referral(s): Seferino Dougherty DO [Primary Care Provider] - 1-2 days Maria Isabel Ambriz MD [REFERRING] - 1-2 Days Patient Instructions/Handouts: Pain Management After Surgery (GEN) Activity/Diet/Wound Care/Special Instructions: Follow-up with Dr. Cast on Thursday. He will email you. diet as tolerated. Activity as tolerated. Discharge Disposition: HOME SELF-CARE Pending Studies Pending Results: None
[2017-07-21] MEDS ORDERED: FERROUS SULFATE 325 MG TAB PO SCH (17:30)
--- NOTE | 2017-07-21 18:45 | P.PN ---
Subjective Progress Note Date: 07/21/17 Principal diagnosis: Recent implantation of a hypoglossal nerve stimulator for a diagnosis of sleep apnea syndrome, phlegmonous changes, subcutaneous emphysema within the right sublingual space without focal fluid collection This is a 52-year-old white female patient who follows with Dr. Dougherty for primary care services, status post hypoglossal nerve stimulator for a diagnosis of sleep apnea syndrome placed at [facility] about a week ago. Patient presented to the hospital on 07/20/2017 with complaints of difficulty breathing , some throat swelling and rash. There was an area on the submental area that was positive for some urticaria, patient was a little flushed, and for that reason initially an ALLERGIC reaction was considered. Soft tissue neck CT was obtained, and showed a phlegmonous changes, subcutaneous emphysema, fascial plane thickening, and subcutaneous fat stranding located within the right sublingual space, retrimmer space and submental space relating to the recent implantation of the hypoglossal nerve stimulator. No focal fluid collection to suggest abscess was noted. Lab work was negative for any evidence of leukocytosis, electrolytes were essentially normal, carbon dioxide was 20, and subsequently came up to 21. Plasma lactic acid was 0.7, liver enzymes were all within normal limits, Procalcitonin level was 0.04. Patient was treated with IV steroids, empiric antibiotics in the form of Levaquin, IV Benadryl, Pepcid, IV Tylenol, and on 07/21/2017 patient reports improvement in her swallowing, no difficulty breathing, no voice hoarseness. Patient is afebrile, vital signs are stable, room air pulse ox is 97%, lung sounds are diminished, no rhonchi or wheezing noted. Upon initial presentation to the emergency department transfer was attempted to the [facility], however there were no beds available, and the patient was treated at this hospital with the above combination of medical treatments with subsequent clinical improvement. Patient has a follow-up appointment with her surgeon on August 03, however the attending physician has been in contact with her surgeon who recommended continuing the Levaquin, and patient will be seen in follow-up by her surgeon this Thursday. Patient has been cleared from pulmonary standpoint for discharge home with follow-up Objective - Vital Signs Vital signs: Vital Signs Temp 98.3 F 07/21/17 15:40 Pulse 77 07/21/17 15:40 Resp 16 07/21/17 15:40 BP 124/58 07/21/17 15:40 Pulse Ox 97 07/21/17 15:40 Intake & Output 07/20/17 07/21/17 07/21/17 18:59 06:59 18:59 Intake Total 350 Balance 350 Weight 104.326 kg 104.326 kg Intake: Oral 350 - Exam GENERAL EXAM: Alert, pleasant, 52-year-old white female comfortable in no apparent distress. HEAD: Normocephalic/atraumatic. EYES: Normal reaction of pupils, equal size. Conjunctiva pink, sclera white. NOSE: Clear with pink turbinates. THROAT: Submental area on the right has a nodular swelling, and some brownish discoloration, somewhat tender to palpation, but no redness or warmth noted. NECK: No masses, no JVD, no thyroid enlargement, no adenopathy. CHEST: No chest wall deformity. Symmetrical expansion. Right upper chest surgical incision, the site of the hypoglossal nerve stimulator generator implant is clean dry and intact, approximated. Right upper chest limited subcutaneous emphysema noted LUNGS: Equal air entry with no crackles, wheeze, rhonchi or dullness. CVS: Regular rate and rhythm, normal S1 and S2, no gallops, no murmurs, no rubs ABDOMEN: Soft, nontender. No hepatosplenomegaly, normal bowel sounds, no guarding or rigidity. EXTREMITIES: No clubbing, no edema, no cyanosis, 2+ pulses and upper and lower extremities. MUSCULOSKELETAL: Muscle strength and tone normal. SPINE: No scoliosis or deformity SKIN: No rashes CENTRAL NERVOUS SYSTEM: Alert and oriented -3. No focal deficits, tone is normal in all 4 extremities. PSYCHIATRIC: Alert and oriented -3. Appropriate affect. Intact judgment and insight. - Labs CBC & Chem 7: 07/21/17 06:38 07/21/17 06:38 Labs: Abnormal Lab Results - Last 24 Hours (Table) 07/20/17 07/21/17 07/21/17 Range/Units 20:07 06:33 06:38 Carbon Dioxide 21 L (22-30) mmol/L Glucose 123 H (74-99) mg/dL POC Glucose (mg/dL) 140 H 134 H (75-99) mg/dL 07/21/17 Range/Units 12:04 Carbon Dioxide (22-30) mmol/L Glucose (74-99) mg/dL POC Glucose (mg/dL) 113 H (75-99) mg/dL Microbiology - Last 24 Hours (Table) 07/20/17 15:53 Blood Culture - Preliminary Blood No Growth after 24 hours Assessment and Plan Plan: Assessment: #1. Right-sided neck swelling, likely a phlegmonous change, status post hypoglossal nerve stimulator implantation a week ago in [facility] #2. Mild dyspnea, rash, likely related to the above #3. Obstructive sleep apnea, patient has been unable to tolerate CPAP therapy #4. History of severe persistent bronchial asthma #5. History of adrenal insufficiency #6. Multiple sclerosis #7. History of postural orthostatic tachycardia syndrome #8. Optic neuritis #9. GERD #10. Autoimmune hepatitis #11. Fibromyalgia #12. Back pain Plan: Patient has responded favorably to IV steroids, Levaquin, Benadryl, Pepcid. No signs of airway compromise, denies any dyspnea, patient is tolerating swallowing liquids, voice hoarseness, no worsening subcutaneous emphysema, no pulmonary complaints. The attending physician has been in contact with the patient's surgeon from [facility], and follow-up appointment has been arranged for this coming Thursday. Patient is stable for discharge home from pulmonary standpoint, she was instructed to call the ambulance and the events any evidence of worsening dyspnea, or worsening throat swelling. I performed a history & physical examination of the patient and discussed their management with my nurse practitioner, Vibha Spivey. I reviewed the nurse practitioner's note and agree with the documented findings and plan of care. Lung sounds are clear. The findings and the impression was discussed with the patient. I attest to the documentation by the nurse practitioner. Time with Patient: Less than 30
== END 2017-07-21 17:00 | disposition home or self-care (01) ==
LOC: EC 11:59 → 3OBS 15:59
PROVIDERS: ADMIT Internal Medicine; ATTEND Internal Medicine
DX: L02.11 Cutaneous abscess of neck (principal); G47.33 Obstructive sleep apnea (adult) (pediatric); E27.40 Unspecified adrenocortical insufficiency; J44.9 Chronic obstructive pulmonary disease, unspecified; E03.9 Hypothyroidism, unspecified; E66.01 Morbid (severe) obesity due to excess calories; Z68.35 Body mass index [BMI] 35.0-35.9, adult; M79.7 Fibromyalgia; G35 Multiple sclerosis; T79.7XXA Traumatic subcutaneous emphysema, initial encounter; T50.996A Underdosing of other drugs, medicaments and biological substances, initial encounter; Z91.128 Patient's intentional underdosing of medication regimen for other reason; Z90.49 Acquired absence of other specified parts of digestive tract; Z99.89 Dependence on other enabling machines and devices; F41.9 Anxiety disorder, unspecified; F32.9 Major depressive disorder, single episode, unspecified; Z82.49 Family history of ischemic heart disease and other diseases of the circulatory system; Z79.899 Other long term (current) drug therapy; Z79.51 Long term (current) use of inhaled steroids; Z88.1 Allergy status to other antibiotic agents; Z91.048 Other nonmedicinal substance allergy status; Z88.2 Allergy status to sulfonamides; Z91.040 Latex allergy status; Z91.011 Allergy to milk products; Z88.0 Allergy status to penicillin; Z88.8 Allergy status to other drugs, medicaments and biological substances; Z91.018 Allergy to other foods; K21.9 Gastro-esophageal reflux disease without esophagitis; I47.1 Supraventricular tachycardia; H46.9 Unspecified optic neuritis; I10 Essential (primary) hypertension; G43.909 Migraine, unspecified, not intractable, without status migrainosus; I49.8 Other specified cardiac arrhythmias; Z79.1 Long term (current) use of non-steroidal anti-inflammatories (NSAID); R21 Rash and other nonspecific skin eruption; J45.50 Severe persistent asthma, uncomplicated; K75.4 Autoimmune hepatitis; M54.9 Dorsalgia, unspecified; R13.10 Dysphagia, unspecified; R06.02 Shortness of breath; M19.90 Unspecified osteoarthritis, unspecified site; D64.9 Anemia, unspecified; M87.9 Osteonecrosis, unspecified; R11.0 Nausea; R10.11 Right upper quadrant pain; R55 Syncope and collapse; S20.329A Blister (nonthermal) of unspecified front wall of thorax, initial encounter
CPT/HCPCS: 99285; 96365 ×2; 96375 ×5; 96366; 96376 ×2; 36415; 94640; 80053; 80048; 83605; 85025; 85027; 87040; 83036; 84145; 70491; G0378 ×2; J2270 ×2; J1200 ×2; J1100 ×2; J2930; J1956; Q9967

== ENCOUNTER 2017-08-05 11:35 | Day surgery (SDC) | payer MEDICARE ==
[2017-08-03 11:51] VITALS: BMI 34.7
--- NOTE | 2017-08-04 11:28 | P.GSHP ---
History of Present Illness H&P Date: 08/04/17 Chief Complaint: Malfunctioning right sided Port-A-Cath This patient has had a Port-A-Cath for almost 10 years. It has recently began to malfunction. She has recently had some sort of sleep apnea triggering device placed on the right side as well. - Constitutional Constitutional: Reports fatigue, Denies chills, Denies fever - EENT Eyes: denies blurred vision, denies pain Ears, nose, mouth and throat: Denies headache, Denies sore throat - Cardiovascular Cardiovascular: Reports decreased exercise tolerance, Denies chest pain, Denies leg edema, Denies orthopnea, Denies paroxysmal nocturnal dyspnea, Denies shortness of breath - Respiratory Respiratory: Denies cough, Denies cough with sputum, Denies hemoptysis - Gastrointestinal Gastrointestinal: Denies abdominal pain, Denies coffee ground emesis, Denies diarrhea, Denies hematemesis, Denies hematochezia, Denies jaundice, Denies melena, Denies nausea, Denies vomiting - Genitourinary (Female) Genitourinary: Denies dysuria, Denies hematuria - Genitourinary (Male) Genitourinary: Denies dysuria, Denies hematuria - Musculoskeletal Musculoskeletal: Denies myalgias - Integumentary Integumentary: Denies pruritus, Denies rash - Neurological Comment: Patient has been diagnosed with MS with intermittent symptoms Neurological: Denies numbness, Denies weakness - Psychiatric Psychiatric: Denies anxiety, Denies depression - Endocrine Endocrine: Denies fatigue, Denies weight change - Hematologic/Lymphatic Hematologic/Lymphatic: Denies easy bleeding, Denies easy bruising, Denies lymphedema - Allergic/Immunologic Allergic/Immunologic: Denies anaphylaxis, Denies angioedema, Denies urticaria Past Medical History Past Medical History: Asthma, Blood Disorder, COPD, Eye Disorder, Fibromyalgia, GERD/Reflux, Hypertension, Liver Disease, Musculoskeletal Disorder, Osteoarthritis (OA), Sleep Apnea/CPAP/BIPAP, Supraventricular Tachycardia (SVT) , Syncope, Thyroid Disorder Additional Past Medical History / Comment(s): Multiple sclerosis, optic neuritis , anemia, migraines, adrenal insufficiency, auto immune hepatitis, avascular necrosis, chronic sinus infections, hypothyroidism, CPAP use. History of Any Multi-Drug Resistant Organisms: None Reported Past Surgical History: Bowel Resection, Cholecystectomy, Heart Catheterization, Hysterectomy, Joint Replacement, Orthopedic Surgery, Tonsillectomy Additional Past Surgical History / Comment(s): Sinus surgery, blepharoplasty bilateral eyes, POWER PORT -IMPLANTABLE PORT-under right clavicle, bowel adhesions, right knee replacement, 8 INCHS OF BOWEL REMOVED, bilateral total hip replacements. Multiple BRONCHOSCOPIES. Inspire sleep apnea device (07/16/17) Past Anesthesia/Blood Transfusion Reactions: Blood Transfusion Reaction Additional Past Anesthesia/Blood Transfusion Reaction / Comment(s): HX OF BLOOD TRANSFUSION : HAS CARD STATING K ANTIBODY AFTER RECEIVING A TRANSFUSION. Past Psychological History: Anxiety, Depression Smoking Status: Never smoker Past Alcohol Use History: None Reported Past Drug Use History: Marijuana Additional Drug Use History / Comment(s): Has medical marijuana card, uses approx 2X/week. - Past Family History Mother Family Medical History: Hypertension Father Family Medical History: COPD, Hypertension Additional Family Medical History / Comment(s): Father at the age of 69 yrs from emphysema Brother(s) Additional Family Medical History / Comment(s): Brother-[place] X2 Medications and Allergies Home Medications Medication Instructions Recorded Confirmed Type Montelukast [Singulair] 10 mg PO HS 07/14/13 08/03/17 History clonazePAM [KlonoPIN] 0.5 mg PO TID PRN 01/25/15 08/03/17 History Fluticasone/Vilanterol [Breo 1 puff INHALATION RT-DAILY 11/19/15 08/03/17 History Ellipta 200-25 Mcg INH] hydrOXYzine PAMOATE [Vistaril] 100 mg PO Q4-6H PRN 11/19/15 08/03/17 History Promethaz-Cod 6.25-10 mg/5 ml 5 ml PO Q4-6H PRN 03/06/16 08/03/17 History [Phenergan with Codeine] Mometasone Inhalr 220 Mcg/Puff 2 puff INHALATION RT-DAILY 03/07/16 08/03/17 History [Asmanex] DULoxetine HCL [Cymbalta] 60 mg PO QAM 11/13/16 08/03/17 History Esomeprazole Magnesium [NexIUM] 40 mg PO HS 01/05/17 08/03/17 History Fexofenadine/Pseudoephedrine 1 tab PO DAILY 01/05/17 08/03/17 History [Renetta-D 24 Hour Tablet] Fluticasone Nasal [place] [Flonase 2 puff NASAL BID 01/05/17 08/03/17 History Nasal [place]] Meclizine [Antivert] 12.5 mg PO Q8HR PRN 01/05/17 08/03/17 History Prochlorperazine [Compazine] 10 mg PO Q8H PRN 01/05/17 08/03/17 History Ferrous Sulfate [Iron (65 MG 325 mg PO W/SUPPER 06/09/17 08/03/17 History Elemental)] HYDROcodone/APAP 5-325MG [[place] 1 tab PO Q4HR PRN 07/20/17 08/03/17 History 5-325] HYDROmorphone [Dilaudid] 4 mg PO Q4-6H PRN 07/20/17 08/03/17 History traZODone HCL 100 mg PO HS 07/20/17 08/03/17 History Hydrocortisone [Cortef] 10 mg PO W/SUPPER 07/27/17 08/03/17 History Hydrocortisone [Cortef] 20 mg PO QAM 07/27/17 08/03/17 History Albuterol Inhaler [Ventolin Hfa 2 puff INHALATION RT-Q6H PRN 08/03/17 08/03/17 History Inhaler] Allergies Allergy/AdvReac Type Severity Reaction Status Date / Time latex Allergy Severe Anaphylaxis Verified 08/03/17 11:59 Sulfa (Sulfonamide Allergy Severe Rash/Hives Verified 08/03/17 11:59 Antibiotics) adhesive Allergy Rash/Hives Verified 08/03/17 11:59 alcohol Allergy Rash/Hives Verified 08/03/17 11:59 [From Mastisol Adhesive] amoxicillin Allergy Rash/Hives Verified 08/03/17 11:59 glatiramer (copolymer 1) Allergy Unknown Verified 08/03/17 11:59 [From Copaxone] gum mastic Allergy Rash/Hives Verified 08/03/17 11:59 [From Mastisol Adhesive] interferon beta-1b Allergy Unknown Verified 08/03/17 11:59 [From Betaseron] methyl salicylate Allergy Rash/Hives Verified 08/03/17 11:59 [From Mastisol Adhesive] mold Allergy Unknown Verified 08/03/17 11:59 ragweed pollen Allergy Unknown Verified 08/03/17 11:59 storax Allergy Rash/Hives Verified 08/03/17 11:59 [From Mastisol Adhesive] sulfamethoxazole Allergy Rash/Hives Verified 08/03/17 11:59 [From Bactrim] trimethoprim [From Bactrim] Allergy Rash/Hives Verified 08/03/17 11:59 bupropion HCl AdvReac Severe Rash/Hives Verified 08/03/17 11:59 [From Wellbutrin] gluten AdvReac Severe Nausea & Verified 08/03/17 11:59 Vomiting & Diarrhea interferon beta AdvReac Severe Rash/Hives Verified 08/03/17 11:59 interferon beta-1a AdvReac Severe Rash/Hives Verified 08/03/17 11:59 [From Avonex] lamotrigine [From Lamictal] AdvReac Severe Rash/Hives Verified 08/03/17 11:59 milk AdvReac Severe Nausea & Verified 08/03/17 11:59 Vomiting oxaprozin [From Daypro] AdvReac Severe Rash/Hives Verified 08/03/17 11:59 Penicillins AdvReac Severe Rash/Hives Verified 08/03/17 11:59 azithromycin AdvReac Unknown Rash/Hives, Verified 08/03/17 11:59 RED SKIN, ITCHING doxycycline AdvReac Unknown Rash/Hives Verified 08/03/17 11:59 albumin human AdvReac Rash/Hives Verified 08/03/17 11:59 [From Rebif (with albumin)] dicyclomine [From Bentyl] AdvReac Rash/Hives Verified 08/03/17 11:59 wheat AdvReac Nausea & Verified 08/03/17 11:59 Vomiting & Diarrhea cow's milk Allergy Unknown Uncoded 08/03/17 11:59 DUST Allergy Unknown Uncoded 08/03/17 11:59 STERISTRIPS AdvReac Severe BLISTERS Uncoded 08/03/17 11:59 TO SKIN Surgical - Exam Osteopathic Statement: *. No significant issues noted on an osteopathic structural exam other than those noted in the History and Physical/Consult. - General well developed, well nourished, no distress - Eyes normal ocular movement, no icteric - ENT no hearing loss, no congestion - Neck no masses, no bruits, trachea midline - Respiratory normal expansion, normal respiratory effort, clear to auscultation - Cardiovascular Rhythm: regular - Abdomen Abdomen: soft, non tender, no guarding, no rigid, no rebound - Integumentary no rash, no abnormal pigmentation - Neurologic no disoriented, no combative - Musculoskeletal normal gait, normal posture - Psychiatric oriented to time, oriented to person, oriented to place, speech is normal, memory intact Assessment and Plan (1) Poor intravenous access Status: Acute Code(s): Z78.9 - OTHER SPECIFIED HEALTH STATUS SNOMED Code(s) : 679977495 (2) Multiple sclerosis Status: Acute Code(s): G35 - MULTIPLE SCLEROSIS SNOMED Code(s): 89244556 Plan: This patient requires IV access for periodic blood draws and she has difficult to access veins. Her current Port-A-Cath is not functional. We will place the new port on her left side so as not to interfere with her right-sided device. We discussed with her the options and risks involved. She agrees to understand and agrees to proceed with removal of her previous device and placement of a new one.
[~2017-08-05 11:35] MED LIST changes: -ALBUTEROL NEB (CONC) 2.5 MG/0.5 ML INHALATION ONE; +HYDROCORTISONE SUCCINATE 100 MG/2 ML VIAL IV ONE; -LACTATED RINGERS 1,000 ML IV ONE; +LACTATED RINGERS 1,000 ML IV SCH; +LIDOCAINE 1% 20 ML VIAL (10MG/ML) FOR IV START INTRADERMA PRN; -LIDOCAINE 2% (PF) 20 MG/ML 2 ML AMP INHALATION ONE; +MIDAZOLAM 2 MG/2 ML VIAL IV PRN; +ceFAZolin IN SWFI 2 GM/20 ML SYRINGE IVP ONE
[2017-08-05 11:50] VITALS: TEMP 97
[2017-08-05] MEDS ORDERED: PROPOFOL 10 MG/ML 20 ML VIAL IV ONE (12:52)
[2017-08-05] MEDS ORDERED: MIDAZOLAM 2 MG/2 ML VIAL ONE (12:52)
[2017-08-05] MEDS ORDERED: fentaNYL (PF) 50 MCG/ML 2 ML AMP ONE (12:52)
[2017-08-05] MEDS ORDERED: KETAMINE 10 MG/ML 20 ML VIAL ONE (12:52)
[2017-08-05] MEDS ORDERED: LIDOCAINE 1% (PF) 10 MG/ML (30 ML SDV) SQ ONE (12:52)
[2017-08-05] MEDS ORDERED: diphenhydrAMINE 50 MG/ML 1 ML VIAL ONE (12:52)
[2017-08-05] MEDS ORDERED: LIDOCAINE 1% INJ 10MG/ML (20 ML MDV) SQ ONE ×2 (12:52)
[2017-08-05] MEDS ORDERED: LACTATED RINGERS 1,000 ML IV ONE (14:00)
--- NOTE | 2017-08-05 14:52 | FL ---
Fluoroscopy HISTORY: Port-A-Cath placement 10 seconds fluoroscopy time supplied to the referring clinician. 2 intraoperative C-arm images docum ent the procedure. See dictated report from cardiothoracic surgery.
--- NOTE | 2017-08-05 15:08 | P.PCN ---
Date of Procedure: 08/05/17 Preoperative Diagnosis: Malfunction of Port-A-Cath Postoperative Diagnosis: Same Procedure(s) Performed: Removal of Port-A-Cath and insertion of new Port-A-Cath Anesthesia: MAC Surgeon: Pj Luna Estimated Blood Loss (ml): 20 Pathology: none sent Condition: stable Disposition: PACU Indications for Procedure: The patient had had her previous Port-A-Cath for around 7 years. It has become unreliable with difficulties withdrawing from it. Operative Findings: There were no significant abnormalities. Description of Procedure: With the patient spine position, under benefit of IV sedation, we prepped and draped sterile fashion. We anesthetized over the previous Port-A-Cath. An incision was made. We loosened it from its attachments by electrocautery. We removed the entire port including catheter intact. We then anesthetized beneath the left clavicle. We accessed the left subclavian vein via the standard infraclavicular approach. Guidewires inserted through the needle and the needle was removed. We then made an incision encompassing this puncture site. We made a pocket medially to this. We measured a Port-A-Cath catheter to length. We then cut it to length and placed it on the port reservoir. We then using for anchor stitches of silk we secured the reservoir in the pocket. We then placed a dilator and sheath over the guidewire standard Seldinger fashion. The guidewire and dilator removed and the catheter was placed through the sheath. The catheter was found in the lower SVC at the level of the right atrium. We positioned the catheter so that it did not kink. There was good blood return. It was charged with a standard heparin solution. Incisions were hemostatic. They were closed with Vicryl. Sterile dressings were applied. The patient tolerated the procedure well and was taken recovery room in stable condition.
[2017-08-05] MEDS ORDERED: HYDROCORTISONE SUCCINATE 100 MG/2 ML VIAL IVP ONE (15:09)
--- NOTE | 2017-08-05 15:25 | XR ---
EXAMINATION TYPE: XR chest 1V portable DATE OF EXAM: 08/05/2017 COMPARISON: 03/31/2017 HISTORY: Status post port insertion. TECHNIQUE: Single frontal view of the chest is obtained. FINDINGS: There is been interval removal of right-sided Mediport with replacement of a new left-side d Mediport terminating in the high right atrium. New right-sided nerve stimulator overlies the right hemithorax and partially screws the right midlung. There is no focal air space opacity, pleural effus ion, or pneumothorax seen. The cardiac silhouette size is within normal limits. The osseous struct ures are intact. Mild acromio clavicular arthropathy is noted bilaterally. IMPRESSION: No acute cardiopulmonary process. Postprocedural pneumothorax. Newly placed left Medipor t terminating in the high right atrium.
[2017-08-05] MEDS ORDERED: MORPHINE SULFATE 4 MG/ML SYRINGE IVP ONE (15:35)
[2017-08-05 15:42] VITALS: RESP 18
[2017-08-05] MEDS ORDERED: HYDROcodone/APAP 5-325MG 1 EACH TAB PO ONE (15:47)
[2017-08-05] MEDS ORDERED: MORPHINE SULFATE 4MG/4ML SYRG IV ONE (16:55)
[2017-08-05] MEDS ORDERED: KETOROLAC 30 MG/ML 1 ML VIAL IVP ONE (17:20)
[2017-08-05] MEDS ORDERED: MORPHINE SULFATE 4 MG/ML SYRINGE ONE (17:58)
[2017-08-05 18:20] VITALS: BP 132/77; PULSE 72
== END 2017-08-05 19:03 | disposition home or self-care (01) ==
LOC: OR 11:35
PROVIDERS: ATTEND Thoracic Surgery (Cardiothoracic Vascular Surgery)
DX: T82.514A Breakdown (mechanical) of infusion catheter, initial encounter (principal); I87.2 Venous insufficiency (chronic) (peripheral); G35 Multiple sclerosis; J44.9 Chronic obstructive pulmonary disease, unspecified; D75.9 Disease of blood and blood-forming organs, unspecified; M79.7 Fibromyalgia; K21.9 Gastro-esophageal reflux disease without esophagitis; I10 Essential (primary) hypertension; K75.4 Autoimmune hepatitis; M19.90 Unspecified osteoarthritis, unspecified site; H46.9 Unspecified optic neuritis; G47.30 Sleep apnea, unspecified; I47.1 Supraventricular tachycardia; E03.9 Hypothyroidism, unspecified; D64.9 Anemia, unspecified; G43.109 Migraine with aura, not intractable, without status migrainosus; E27.40 Unspecified adrenocortical insufficiency; F41.9 Anxiety disorder, unspecified; F32.9 Major depressive disorder, single episode, unspecified; Z99.89 Dependence on other enabling machines and devices; Z79.51 Long term (current) use of inhaled steroids; Z79.52 Long term (current) use of systemic steroids; Z79.899 Other long term (current) drug therapy; Z90.49 Acquired absence of other specified parts of digestive tract; Z96.651 Presence of right artificial knee joint; Z96.643 Presence of artificial hip joint, bilateral; Z91.040 Latex allergy status; Z88.1 Allergy status to other antibiotic agents; Z88.0 Allergy status to penicillin; Z88.2 Allergy status to sulfonamides; Z88.8 Allergy status to other drugs, medicaments and biological substances; Z91.048 Other nonmedicinal substance allergy status
CPT/HCPCS: 77001; 71045; 36590; 36561; C1788; J2250; J2270 ×2; J1200; J1720; J2001; J3010; J1885; J1642; J2704

== ENCOUNTER → 2017-09-07 | Outpatient (CLI) | payer MEDICARE ==
[2017-09-07 14:41] LABS: Basophils % (A) 0 %; Eosinophils # (A) 0.1 k/uL (0-0.7); Eosinophils % (A) 1 %; HCT 43.4 % (34.0-46.0); HGB 13.3 gm/dL (11.4-16.0); Hypochromasia Slight; Lymphocytes # (A) 1.1 k/uL (1.0-4.8); Lymphocytes % (A) 20 %; MCH 28.9 pg (25.0-35.0); MCHC 30.7 g/dL (31.0-37.0); MCV 94.2 fL (80.0-100.0); Mean Platelet Volume 6.7; Monocytes # (A) 0.4 k/uL (0-1.0); Monocytes % (A) 7 %; Neutrophils # (A) 3.6 k/uL (1.3-7.7); Neutrophils % (A) 68 %; Platelet Count 275 k/uL (150-450); RBC 4.61 m/uL (3.80-5.40); WBC 5.2 k/uL (3.8-10.6)
[2017-09-07 15:02] LABS: ALT 25 U/L (9-52); AST 19 U/L (14-36); Blood Urea Nitrogen 8 mg/dL (7-17)
== END | disposition home or self-care (01) ==
LOC: LABWHC1 13:50
PROVIDERS: ATTEND Psychiatry & Neurology Neurology
DX: G35 Multiple sclerosis (principal)
CPT/HCPCS: 36415; 82565; 84450; 84460; 84520; 85025

== ENCOUNTER → 2017-09-24 | Outpatient (CLI) | payer MEDICARE | END | disposition home or self-care (01) | LOC: LABWHC1 08:54 | PROVIDERS: ATTEND Psychiatry & Neurology Neurology | DX: G35 Multiple sclerosis (principal) | CPT/HCPCS: 36415 ==

== ENCOUNTER → 2017-11-16 | Outpatient (CLI) | payer MEDICARE ==
[2017-11-16 11:00] LABS: Basophils % (A) 1 %; Eosinophils # (A) 0.1 k/uL (0-0.7); Eosinophils % (A) 1 %; HCT 43.1 % (34.0-46.0); HGB 13.7 gm/dL (11.4-16.0); Lymphocytes # (A) 0.9 k/uL (1.0-4.8); Lymphocytes % (A) 17 %; MCH 29.7 pg (25.0-35.0); MCHC 31.8 g/dL (31.0-37.0); MCV 93.5 fL (80.0-100.0); Mean Platelet Volume 6.9; Monocytes # (A) 0.6 k/uL (0-1.0); Monocytes % (A) 11 %; Neutrophils # (A) 3.5 k/uL (1.3-7.7); Neutrophils % (A) 68 %; Platelet Count 291 k/uL (150-450); RBC 4.61 m/uL (3.80-5.40); RDW 14.3 % (11.5-15.5); WBC 5.2 k/uL (3.8-10.6)
[2017-11-16 11:12] LABS: ALT 17 U/L (9-52)
[2017-11-16 11:16] LABS: AST 21 U/L (14-36)
== END ==
LOC: LABWHC1 09:16
PROVIDERS: ATTEND Psychiatry & Neurology Neurology
DX: G35 Multiple sclerosis (principal)
CPT/HCPCS: 36415; 84450; 84460; 85025

== ENCOUNTER 2017-12-01 11:47 | Inpatient (IN) | payer MEDICARE ==
[2017-12-01 12:43] LABS: Basophils % (A) 1 %; Eosinophils # (A) 0.1 k/uL (0-0.7); Eosinophils % (A) 2 %; HGB 13.1 gm/dL (11.4-16.0); Lymphocytes # (A) 1.1 k/uL (1.0-4.8); Lymphocytes % (A) 27 %; MCH 30.3 pg (25.0-35.0); MCHC 32.8 g/dL (31.0-37.0); MCV 92.3 fL (80.0-100.0); Mean Platelet Volume 6.9; Monocytes # (A) 0.4 k/uL (0-1.0); Monocytes % (A) 11 %; Neutrophils # (A) 2.1 k/uL (1.3-7.7); Neutrophils % (A) 56 %; Platelet Count 246 k/uL (150-450); RBC 4.33 m/uL (3.80-5.40); RDW 14.2 % (11.5-15.5); WBC 3.8 k/uL (3.8-10.6)
[2017-12-01 12:52] LABS: Albumin 3.9 g/dL (3.5-5.0); Potassium 3.8 mmol/L (3.5-5.1); Total Bilirubin 0.4 mg/dL (0.2-1.3)
[2017-12-01] MEDS ORDERED: HYDROmorphone 1 MG/ML 1 ML SYRINGE IVP STA (12:57)
[2017-12-01] MEDS ORDERED: ONDANSETRON 4 MG/2 ML VIAL IVP STA (12:58)
--- NOTE | 2017-12-01 13:04 | XR ---
EXAMINATION TYPE: XR chest 2V DATE OF EXAM: 12/01/2017 COMPARISON: Prior chest x-ray 08/05/2017 HISTORY: Altered mental status TECHNIQUE: Frontal and lateral views of the chest are obtained. FINDINGS: Left subclavian central venous catheter shows the distal tip within the right atrium. There is a stimulator with the generator over the right pectoral region, lead is coursing cephalad and not included on the exam. There are overlying cardiac leads. There is no focal air space opacity, pleura l effusion, or pneumothorax seen. The cardiac silhouette size is within normal limits. The osseous structures are intact. IMPRESSION: No acute cardiopulmonary process.
[2017-12-01 13:05] LABS: Partial Thromboplastin Time 31.9 sec (22.0-30.0); Prothrombin Time 9.7 sec (9.0-12.0)
[2017-12-01 13:08] LABS: Creatine Kinase 53 U/L (30-135)
[2017-12-01 13:21] LABS: Creatine Kinase MB <0.2 ng/mL (0.0-2.4); Troponin I <0.012 ng/mL (0.000-0.034)
--- NOTE | 2017-12-01 13:26 | CT ---
EXAMINATION TYPE: CT brain wo con for TPA DATE OF EXAM: 12/01/2017 COMPARISON: None HISTORY: Headache, poss stroke. Right sided tingling CT DLP: 1038.5 mGycm Automated exposure control for dose reduction was used. FINDINGS: Ventricular system is midline. Calvarium intact. No acute hemorrhage or mass effect. No midline shift. Intracranial atherosclerotic changes noted. Hyperdense material within the sphenoid sinus likely related to high proteinaceous secretions or sinu sitis versus hemorrhagic sinusitis. Occasionally fungal sinusitis can give a similar appearance. Find ing is stable relative CT of the neck dated 07/12/2017. IMPRESSION: 1. No acute intracranial hemorrhage or mass effect. If there is concern for acute ischemia or demyeli nating disease correlate with MRI as clinically warranted. 2. Stable hyperdense material within the sphenoid sinus unchanged from 07/12/2017 likely related to hi gh proteinaceous or hemorrhagic secretions. Fungal disease can provide a similar appearance.
--- NOTE | 2017-12-01 14:21 | ED ---
Neuro HPI - General Chief Complaint: Neuro Symptoms/Deficit Stated Complaint: Poss stroke Time Seen by Provider: 12/01/17 12:23 Source: patient, RN notes reviewed Mode of arrival: ambulatory Limitations: no limitations - History of Present Illness Is the patient presenting with stroke symptoms?: No Initial Comments: This is a 52-year-old female history of MS who states she's had a headache on and off for the past 3 weeks she [facility] shot and some Zofran she will up again this morning around 3:30 AM she has some right facial numbness and tingling to right arm numbness and tingling also a racing heart. She has a history of pots and SVT. - Related Data Home Medications: Home Medications Medication Instructions Recorded Confirmed Montelukast [Singulair] 10 mg PO HS 07/14/13 12/01/17 Fluticasone/Vilanterol [Breo 1 puff INHALATION RT-DAILY 11/19/15 12/01/17 Ellipta 200-25 Mcg INH] Promethaz-Cod 6.25-10 mg/5 ml 5 ml PO Q4-6H PRN 03/06/16 12/01/17 [Phenergan with Codeine] Mometasone Inhalr 220 Mcg/Puff 2 puff INHALATION RT-DAILY 03/07/16 12/01/17 [Asmanex] DULoxetine HCL [Cymbalta] 60 mg PO QAM 11/13/16 12/01/17 Esomeprazole Magnesium [NexIUM] 40 mg PO HS 01/05/17 12/01/17 Fexofenadine/Pseudoephedrine 1 tab PO DAILY 01/05/17 12/01/17 [Renetta-D 24 Hour Tablet] Fluticasone Nasal [place] [Flonase 2 spray EA NOSTRIL BID 01/05/17 12/01/17 Nasal [place]] Prochlorperazine [Compazine] 10 mg PO Q8H PRN 01/05/17 12/01/17 ALPRAZolam [Xanax] 0.5 mg PO TID PRN 12/01/17 12/01/17 Cholecalciferol (Vitamin D3) 12,000 unit PO DAILY 12/01/17 12/01/17 [Vitamin D3] Cholestyramine (with Sugar) 4 gm PO BID 12/01/17 12/01/17 [Questran] Fluconazole [Diflucan] 200 mg PO DIRECTED PRN 12/01/17 12/01/17 Hydrocortisone [Cortef] 2.5 mg PO DAILY 12/01/17 12/01/17 Teriflunomide [Aubagio] 7 mg PO DAILY 12/01/17 12/01/17 Topiramate 50 mg PO HS 12/01/17 12/01/17 Xeomin 1 injection IM Q90D 12/01/17 12/01/17 traZODone HCL 150 mg PO HS 12/01/17 12/01/17 Allergies/Adverse Reactions: Allergies Allergy/AdvReac Type Severity Reaction Status Date / Time latex Allergy Severe Anaphylaxis Verified 12/01/17 12:10 Sulfa (Sulfonamide Allergy Severe Rash/Hives Verified 12/01/17 12:10 Antibiotics) adhesive Allergy Rash/Hives Verified 12/01/17 12:10 alcohol Allergy Rash/Hives Verified 12/01/17 12:10 [From Mastisol Adhesive] amoxicillin Allergy Rash/Hives Verified 12/01/17 12:10 glatiramer (copolymer 1) Allergy Unknown Verified 12/01/17 12:10 [From Copaxone] gum mastic Allergy Rash/Hives Verified 12/01/17 12:10 [From Mastisol Adhesive] interferon beta-1b Allergy Unknown Verified 12/01/17 12:10 [From Betaseron] methyl salicylate Allergy Rash/Hives Verified 12/01/17 12:10 [From Mastisol Adhesive] mold Allergy Unknown Verified 12/01/17 12:10 ragweed pollen Allergy Unknown Verified 12/01/17 12:10 storax Allergy Rash/Hives Verified 12/01/17 12:10 [From Mastisol Adhesive] sulfamethoxazole Allergy Rash/Hives Verified 12/01/17 12:10 [From Bactrim] trimethoprim [From Bactrim] Allergy Rash/Hives Verified 12/01/17 12:10 bupropion HCl AdvReac Severe Rash/Hives Verified 12/01/17 12:10 [From Wellbutrin] gluten AdvReac Severe Nausea & Verified 12/01/17 12:10 Vomiting & Diarrhea interferon beta AdvReac Severe Rash/Hives Verified 12/01/17 12:10 interferon beta-1a AdvReac Severe Rash/Hives Verified 12/01/17 12:10 [From Avonex] lamotrigine [From Lamictal] AdvReac Severe Rash/Hives Verified 12/01/17 12:10 milk AdvReac Severe Nausea & Verified 12/01/17 12:10 Vomiting oxaprozin [From Daypro] AdvReac Severe Rash/Hives Verified 12/01/17 12:10 Penicillins AdvReac Severe Rash/Hives Verified 12/01/17 12:10 azithromycin AdvReac Unknown Rash/Hives, Verified 12/01/17 12:10 RED SKIN, ITCHING doxycycline AdvReac Unknown Rash/Hives Verified 12/01/17 12:10 albumin human AdvReac Rash/Hives Verified 12/01/17 12:10 [From Rebif (with albumin)] dicyclomine [From Bentyl] AdvReac Rash/Hives Verified 12/01/17 12:10 wheat AdvReac Nausea & Verified 12/01/17 12:10 Vomiting & Diarrhea cow's milk Allergy Unknown Uncoded 12/01/17 11:57 DUST Allergy Unknown Uncoded 12/01/17 11:57 STERISTRIPS AdvReac Severe BLISTERS Uncoded 12/01/17 11:57 TO SKIN Review of Systems ROS Statement: Those systems with pertinent positive or pertinent negative responses have been documented in the HPI. ROS Other: All systems not noted in ROS Statement are negative. General Exam - General Exam Comments Initial Comments: This is a well developed well-nourished awake alert oriented 3 female Limitations: no limitations General appearance: alert, in no apparent distress Head exam: Present: atraumatic, normocephalic, normal inspection Eye exam: Present: normal appearance, PERRL, EOMI. Absent: scleral icterus, conjunctival injection, periorbital swelling ENT exam: Present: normal exam, mucous membranes moist Neck exam: Present: normal inspection. Absent: tenderness, meningismus, lymphadenopathy Respiratory exam: Present: normal lung sounds bilaterally. Absent: respiratory distress, wheezes, rales, rhonchi, stridor Cardiovascular Exam: Present: regular rate, normal rhythm, normal heart sounds. Absent: systolic murmur, diastolic murmur, rubs, gallop, clicks GI/Abdominal exam: Present: soft, normal bowel sounds. Absent: distended, tenderness, guarding, rebound, rigid Extremities exam: Present: normal inspection, full ROM, normal capillary refill. Absent: tenderness, pedal edema, joint swelling, calf tenderness Back exam: Present: normal inspection Neurological exam: Present: alert, oriented X3, CN II-XII intact, motor sensory deficit (Recently difference in sensation to light touch the right face is somewhat diminished compared to the left no other findings) Psychiatric exam: Present: normal affect, normal mood Skin exam: Present: warm, dry, intact, normal color. Absent: rash Stroke MDM - Lab Data Result diagrams: 12/01/17 12:25 12/01/17 12:25 Lab Results 12/01/17 12/01/17 12/01/17 Range/Units 12:25 12:25 12:25 WBC 3.8 (3.8-10.6) k/uL RBC 4.33 (3.80-5.40) m/uL Hgb 13.1 (11.4-16.0) gm/dL Hct 40.0 (34.0-46.0) % MCV 92.3 (80.0-100.0) fL MCH 30.3 (25.0-35.0) pg MCHC 32.8 (31.0-37.0) g/dL RDW 14.2 (11.5-15.5) % Plt Count 246 (150-450) k/uL Neutrophils % 56 % Lymphocytes % 27 % Monocytes % 11 % Eosinophils % 2 % Basophils % 1 % Neutrophils # 2.1 (1.3-7.7) k/uL Lymphocytes # 1.1 (1.0-4.8) k/uL Monocytes # 0.4 (0-1.0) k/uL Eosinophils # 0.1 (0-0.7) k/uL Basophils # 0.0 (0-0.2) k/uL PT (9.0-12.0) sec INR (<1.2) APTT (22.0-30.0) sec Sodium 138 (137-145) mmol/L Potassium 3.8 (3.5-5.1) mmol/L Chloride 109 H (98-107) mmol/L Carbon Dioxide 20 L (22-30) mmol/L Anion Gap 9 mmol/L BUN 11 (7-17) mg/dL Creatinine 0.97 (0.52-1.04) mg/dL Est GFR (CKD-EPI)AfAm 79 (>60 ml/min/1.73 sqM) Est GFR (CKD-EPI)NonAf 68 (>60 ml/min/1.73 sqM) Glucose 93 (74-99) mg/dL Calcium 9.0 (8.4-10.2) mg/dL Total Bilirubin 0.4 (0.2-1.3) mg/dL AST 18 (14-36) U/L ALT 26 (9-52) U/L Alkaline Phosphatase 97 (38-126) U/L Total Creatine Kinase 53 (30-135) U/L CK-MB (CK-2) <0.2 (0.0-2.4) ng/mL CK-MB (CK-2) Rel Index Troponin I <0.012 (0.000-0.034) ng/mL Total Protein 7.0 (6.3-8.2) g/dL Albumin 3.9 (3.5-5.0) g/dL 12/01/17 Range/Units 12:25 WBC (3.8-10.6) k/uL RBC (3.80-5.40) m/uL Hgb (11.4-16.0) gm/dL Hct (34.0-46.0) % MCV (80.0-100.0) fL MCH (25.0-35.0) pg MCHC (31.0-37.0) g/dL RDW (11.5-15.5) % Plt Count (150-450) k/uL Neutrophils % % Lymphocytes % % Monocytes % % Eosinophils % % Basophils % % Neutrophils # (1.3-7.7) k/uL Lymphocytes # (1.0-4.8) k/uL Monocytes # (0-1.0) k/uL Eosinophils # (0-0.7) k/uL Basophils # (0-0.2) k/uL PT 9.7 (9.0-12.0) sec INR 1.0 (<1.2) APTT 31.9 H (22.0-30.0) sec Sodium (137-145) mmol/L Potassium (3.5-5.1) mmol/L Chloride (98-107) mmol/L Carbon Dioxide (22-30) mmol/L Anion Gap mmol/L BUN (7-17) mg/dL Creatinine (0.52-1.04) mg/dL Est GFR (CKD-EPI)AfAm (>60 ml/min/1.73 sqM) Est GFR (CKD-EPI)NonAf (>60 ml/min/1.73 sqM) Glucose (74-99) mg/dL Calcium (8.4-10.2) mg/dL Total Bilirubin (0.2-1.3) mg/dL AST (14-36) U/L ALT (9-52) U/L Alkaline Phosphatase (38-126) U/L Total Creatine Kinase (30-135) U/L CK-MB (CK-2) (0.0-2.4) ng/mL CK-MB (CK-2) Rel Index Troponin I (0.000-0.034) ng/mL Total Protein (6.3-8.2) g/dL Albumin (3.5-5.0) g/dL - NIH Stroke Scale 1a. Level of Consciousness: (0) alert 1b. LOC Questions: (0) answers correctly 1c. LOC Commands: (0) performs tasks correctly 2. Best Gaze: (0) normal 3. Visual: (0) no visual loss 4. Facial Palsy: (0) normal symmetrical movement 5a. Motor Arm Left: (0) no drift 5b. Motor Arm Right: (0) no drift 6a. Motor Leg Left: (0) no drift 6b. Motor Leg Right: (0) no drift 7. Limb Ataxia: (0) absent 8. Sensory: (1) mild/moderate sensory loss 9. Best Language: (0) no aphasia 10. Dysarthria: (0) normal 11. Extinction/Inattention: (0) no abnormality - Thrombolytic Inclusion/Exclusion Thrombolytic Exclusion Criteria: Symptom Onset > 3 Hours - Medical Decision Making I did discuss findings with the patient and with Dr. Cooper the patient will be admitted with neurological consultation. The presentation appears be consistent with an MS exacerbation. - EKG Data -: EKG Interpreted by Me EKG shows normal: sinus rhythm (Normal sinus rhythm of 84. Interval 154 QRS duration 80 QT since QTC 356/420 this is normal. EKG) Past Medical History Past Medical History: Asthma, COPD, Fibromyalgia, GERD/Reflux, Neurologic Disorder, Osteoarthritis (OA), Sleep Apnea/CPAP/BIPAP, Supraventricular Tachycardia (SVT) Additional Past Medical History / Comment(s): multiple sclerosis,optic neuritis, anemia,migraines,adrenal insufficiency,auto immune hepatitis, uses c-pap machine , avascular necrosis, uses cane and has knee brace. History of Any Multi-Drug Resistant Organisms: None Reported Past Surgical History: Bowel Resection, Joint Replacement, Orthopedic Surgery Additional Past Surgical History / Comment(s): sinus surgery,blepharoplasty jayleen eyes,POWER PORT -IMPLANTABLE PORT-under right clavicle-bowel adhesions, rt knee replacement , 8 INCH BOWEL REMOVED, jayleen total hip replacement.03-07-16 BRONCHOSCOPY Past Anesthesia/Blood Transfusion Reactions: Blood Transfusion Reaction Additional Past Anesthesia/Blood Transfusion Reaction / Comment(s): HX OF BLOOD TRANSFUSION : HAS CARD STATING K ANTIBODY AFTER RECEIVING A TRANSFUSION Past Psychological History: Anxiety, Depression Smoking Status: Never smoker Past Alcohol Use History: None Reported Past Drug Use History: None Reported - Past Family History Mother Family Medical History: Hypertension Father Family Medical History: COPD, Hypertension Additional Family Medical History / Comment(s): Father at the age of 69 yrs from emphysema Brother(s) Additional Family Medical History / Comment(s): Brother-DE X2 Course Vital Signs 12/01/17 11:52 Temperature 98.8 F Pulse Rate 101 H Respiratory 20 Rate Blood Pressure 105/75 O2 Sat by Pulse 98 Oximetry Disposition Clinical Impression: Exacerbation of multiple sclerosis, Paresthesia, Cephalgia Disposition: ADMITTED IP TO THIS HOSP Condition: Stable Referrals: Seferino Dougherty DO [Primary Care Provider] - 1-2 days
[2017-12-01] MEDS ORDERED: methylPREDNISolone SOD SUCCI 125 MG/2 ML VIAL IV STA (14:23)
[2017-12-01] MEDS ORDERED: NALOXONE 0.4 MG/ML 1 ML VIAL IV PRN (15:05)
[2017-12-01] MEDS ORDERED: FLUCONAZOLE 200 MG PO PRN (15:08)
[2017-12-01] MEDS ORDERED: PROCHLORPERAZINE 10 MG TAB PO PRN (15:08)
[2017-12-01] MEDS: SODIUM CHLORIDE 0.9% 1,000 ML IV SCH (17:06)
[2017-12-01] MEDS: CHOLESTYRAMINE (WITH SUGAR) 4 GM PACKET PO SCH (17:07)
[2017-12-01] MEDS: HYDROmorphone 1 MG/ML 1 ML SYRINGE IVP PRN ×2 (17:07→22:01)
[2017-12-01] MEDS ORDERED: HYDROcodone/APAP 5-325MG 1 EACH TAB PO PRN (17:29)
[2017-12-01] MEDS ORDERED: ACETAMINOPHEN TAB 500 MG TAB PO PRN (17:29)
[2017-12-01] MEDS ORDERED: FLUCONAZOLE 100 MG TAB PO PRN (17:30)
[2017-12-01] MEDS ORDERED: methylPREDNISolone SOD SUCCI 125 MG/2 ML VIAL IV SCH (18:00)
[2017-12-01 18:05] LABS: Glucose,Whole Blood 111 mg/dL (75-99)
[2017-12-01] MEDS: INSULIN ASPART 100 UNIT/ML 1 ML 10 ML VIAL SQ SCH ×2 (18:10→22:04)
--- NOTE | 2017-12-01 18:33 | HP ---
HISTORY AND PHYSICAL DATE OF SERVICE: 12/01/2017 CHIEF COMPLAINTS: Headache and associated difficulties. HISTORY OF PRESENT ILLNESS: This 52-year-old woman with a past medical history of asthma, COPD, fibromyalgia , GERD, multiple sclerosis, optic neuritis, adrenal insufficiency, autoimmune hepatitis , being for Dr. Dougherty in the outpatient setting, was complaining of headache, mainly on the right side, for the past 3 weeks. The headache worsened, localized the around the eye. The patient also had significant difficulty in vision, mostly diminished on the right side. The patient was seen in [facility] yesterday. Today the patient came to [facility] and was admitted for further evaluation and treatment. There is no history of any fever, rigor or chills. No history of any chest pain, palpitation. CT scan showed stable hyperdense material within the sphenoid sinus. The patient is being closely monitored. There is no history of fever, rigors or chills at this time. PAST MEDICAL HISTORY: 1. History of asthma. 2. COPD. 3. Fibromyalgia. 4. GERD. 5. DJD. 6. History of SVT.. 7. Anxiety. 8. Depression. HOME MEDICATIONS: 1. Diflucan 100 mg b.i.d. p.r.n. 2. Topamax 50 mg p.o. at bedtime. 3. Cymbalta 60 mg each morning. 4. Vitamin D3 12,000 units daily. 5. Xeomin injection q.90 days. 6. Xanax 0.5 t.i.d. p.r.n. 7. Trazodone 150 mg at bedtime. 8. Singulair 10 mg at bedtime. 9. Questran 4 mg b.i.d. p.r.n. 10.Phenergan 5 mL q.6 p.r.n. 11.Flonase 2 sprays b.i.d. 12.Nexium 40 mg p.o. at bedtime. 13.Compazine 10 mg q.8 p.r.n. 14.Cortef 2.5 mg daily. 15.Renetta-D 1 tablet p.o. daily. 16.Aubagio 7 mg p.o. daily. 17.Asmanex 2 puffs daily. 18.Breo Ellipta 1 puff daily. ALLERGIES: MULTIPLE ALLERGIES INCLUDE: 1. LATEX. 2. SULFA. 3. ADHESIVES. 4. ALCOHOL. 5. AMOXICILLIN. 6. GLATIRAMER. 7. INTERFERON BETA-1B. 8. METHYL SALICYLATE. 9. MOLD. 10.RAGWEED. 11.STORAX. 12.SULFAMETHOXAZOLE. FAMILY HISTORY: History of hypertension in the family and myocardial infarction. SOCIAL HISTORY: History of occasional alcohol. No history of smoking. REVIEW OF SYSTEMS: ENT: As mentioned earlier. CARDIOVASCULAR SYSTEM: No angina, palpitations. RESPIRATORY SYSTEM: As mentioned earlier. GI: No nausea, vomiting. : No dysuria or retention. NERVOUS SYSTEM: As mentioned earlier. ALLERGY/IMMUNOLOGY: As mentioned earlier. HEMATOLOGY/ONCOLOGY: No history of anemia. ENDOCRINE: As mentioned earlier. CONSTITUTIONAL: As mentioned earlier. DERMATOLOGY: Negative. RHEUMATOLOGY: Negative. PSYCHIATRY: As mentioned earlier. PHYSICAL EXAMINATION: Alert, oriented x3. Pulse 74, blood pressure 123/77, respiration 18, temperature 98.2, pulse ox 99% on room air. HEENT: Conjunctivae normal. Oral mucosa moist. NECK: No jugular venous distention. No carotid bruit. No lymph node enlargement. CARDIOVASCULAR SYSTEM: S1, S2 muffled. No S3. No S4. RESPIRATORY SYSTEM: Breath sounds diminished at the bases. A few rhonchi. No crackles. ABDOMEN: Soft, obese, nontender. No mass palpable. LEGS: No edema. No swelling. NERVOUS SYSTEM: Higher functions as mentioned earlier. Moves all 4 limbs. No focal motor deficit. Otherwise, vision is significantly diminished, right more than the left. JOINTS: No active deforming arthropathy. LYMPHATICS: No lymph node palpable in neck, axillae or groin. LABS: CBC within normal limits. APTT 31.9. CO2 is 20. ASSESSMENT: 1. Headache and diminished vision, possibly multiple sclerosis, acute exacerbation. 2. Asthma/chronic obstructive pulmonary disease history. 3. Fibromyalgia. 4. Gastroesophageal reflux disease. 5. History of degenerative joint disease. 6. History of sleep apnea. 7. History of supraventricular tachycardia. 8. History optic neuritis. 9. History of migraines. 10.Adrenal insufficiency. 11.History of autoimmune hepatitis. 12.History of vascular necrosis. 13.History of degenerative joint disease. 14.History of anxiety, depression. 15.History of medical marijuana. RECOMMENDATIONS AND DISCUSSION: In this 52-year-old woman who presented with multiple complex medical issues, we will monitor the patient closely, continue the current medications, continue with symptomatic treatment. Initiate high-dose IV steroids. Monitor blood sugars closely. Otherwise, neurology consultation. Symptomatic treatment. DVT prophylaxis. See orders for further details. Further recommendations to follow. A copy of this dictation is being forwarded to Dr. Dougherty, who is the primary physician. MMODL / IJN: [id number] / MTDD
[2017-12-01] MEDS: MONTELUKAST 10 MG TAB PO SCH (20:27)
[2017-12-01] MEDS: PANTOPRAZOLE 40 MG TABLET PO SCH (20:28)
[2017-12-01] MEDS: TOPIRAMATE 25 MG TAB PO SCH (20:28)
[2017-12-01] MEDS: FLUTICASONE 50MCG/SPRAY NASAL 16GM EA NOSTRIL SCH (20:32)
[2017-12-01] MEDS: HEPARIN SODIUM,PORCINE 5,000 UNIT/ML 1 ML VIAL SQ SCH (20:33)
[2017-12-01] MEDS: methylPREDNISolone SOD SUCCI 250 MG in SODIUM CHLORIDE 0.9% 100 ML IVPB SCH (20:33)
[2017-12-01 21:37] LABS: Glucose,Whole Blood 134 mg/dL (75-99)
[2017-12-01] MEDS: traZODone HCL 50 MG TAB PO SCH (22:01)
[2017-12-01] MEDS: ONDANSETRON 4 MG/2 ML VIAL IVP PRN (22:03)
[2017-12-01] MEDS: ALPRAZolam 0.5 MG TAB PO PRN (22:46)
[2017-12-02] MEDS: HYDROmorphone 1 MG/ML 1 ML SYRINGE IVP PRN ×5 (01:59→21:16)
[2017-12-02] MEDS: methylPREDNISolone SOD SUCCI 250 MG in SODIUM CHLORIDE 0.9% 100 ML IVPB SCH ×4 (04:52→21:01)
[2017-12-02 07:30] LABS: Glucose,Whole Blood 132 mg/dL (75-99)
[2017-12-02] MEDS: HYDROCORTISONE 10 MG TAB PO SCH (07:55)
[2017-12-02] MEDS: DULoxetine HCL 60 MG CAPSULE.DR PO SCH (07:55)
[2017-12-02] MEDS: FLUTICASONE 50MCG/SPRAY NASAL 16GM EA NOSTRIL SCH ×2 (07:55→20:59)
[2017-12-02] MEDS: CHOLESTYRAMINE (WITH SUGAR) 4 GM PACKET PO SCH ×2 (07:55→16:59)
[2017-12-02] MEDS: LORATADINE-PSEUDOEPH 5-120 MG 1 EACH TAB.ER.12H PO SCH ×2 (07:55→21:01)
[2017-12-02] MEDS: HEPARIN SODIUM,PORCINE 5,000 UNIT/ML 1 ML VIAL SQ SCH ×2 (07:55→21:00)
[2017-12-02] MEDS: INSULIN ASPART 100 UNIT/ML 1 ML 10 ML VIAL SQ SCH ×4 (07:56→21:00)
[2017-12-02] MEDS ORDERED: SYMBICORT 160-4.5 MCG INHALER INHALATION SCH (08:00)
[2017-12-02] MEDS ORDERED: TERIFLUNOMIDE 7 MG PO SCH (09:00)
[2017-12-02] MEDS: FLUTICASONE 110 MCG INHALER INHALATION SCH ×2 (09:02→13:08)
[2017-12-02] MEDS: TERIFLUNOMIDE 7 MG PO SCH (10:51)
[2017-12-02 12:05] LABS: Basophils % (A) 0 %; Eosinophils % (A) 1 %; HGB 12.7 gm/dL (11.4-16.0); Lymphocytes # (A) 0.6 k/uL (1.0-4.8); Lymphocytes % (A) 9 %; MCH 29.4 pg (25.0-35.0); MCHC 31.1 g/dL (31.0-37.0); MCV 94.5 fL (80.0-100.0); Mean Platelet Volume 7.2; Monocytes # (A) 0.1 k/uL (0-1.0); Monocytes % (A) 2 %; Neutrophils # (A) 5.8 k/uL (1.3-7.7); Neutrophils % (A) 88 %; Platelet Count 245 k/uL (150-450); RBC 4.34 m/uL (3.80-5.40); RDW 14.3 % (11.5-15.5); WBC 6.6 k/uL (3.8-10.6)
[2017-12-02 12:12] LABS: Anion Gap 14 mmol/L; Blood Urea Nitrogen 12 mg/dL (7-17); Calcium 8.9 mg/dL (8.4-10.2); Carbon Dioxide 16 mmol/L (22-30); Chloride 111 mmol/L (98-107); Glucose 138 mg/dL (74-99); Potassium 4.2 mmol/L (3.5-5.1); Sodium 141 mmol/L (137-145)
[2017-12-02 12:23] LABS: Glucose,Whole Blood 156 mg/dL (75-99)
--- NOTE | 2017-12-02 12:38 | P.CNPUL ---
History of Present Illness Consult date: 12/02/17 Requesting physician: Robert Cooper Reason for consult: other Chief complaint: Headache, right-sided facial numbness, tingling, right arm numbness, nausea History of present illness: This is a 52-year-old white female patient of Dr. Dougherty, with past medical history of multiple sclerosis, severe persistent bronchial asthma, optic neuritis, postural orthostatic tachycardia syndrome, GERD, fibromyalgia, chronic back pain, obstructive sleep apnea with intolerance to CPAP therapy, adrenal insufficiency, migraine cephalgia, hypertension, status post hypoglossal nerve stimulator implantation, who presented to the emergency department on 12/01/2017 for complaint of an ongoing headache for the past 3 weeks. He describes her headache is unilateral, on the right side of her head, with right-sided facial numbness and tingling to right arm, palpitations. This was associated with nausea, and light sensitivity. Patient follows with Dr. Harvey, has recently started her on Aubagio. Brain CT showed no acute intracranial hemorrhage or mass effect, and stable hyperdense material within the sphenoid sinus which was unchanged from previous CAT scan of the brain from June 2017. No lateralizing motor disturbances, no difficulty with speech. No breathing difficulty at this time, patient's asthma stable, her maintenance inhalers include Breo-Ellipta, and Asmanex. Chest x-ray showed no acute cardiopulmonary process. EKG showed normal sinus rhythm. Vital signs have been stable, room air pulse ox is 95%, hemodynamically stable, no complaints of chest pain, no shortness of breath, no fever or chills. She has been started on high-dose IV steroids, patient was seen by neurology last night, who recommended MRI of the brain however in view of the patient's implanted neurostimulator that MRI cannot be completed at this time. Labs showed CBC within normal limits, no leukocytosis, sodium 138, potassium 3.8, chloride is 109, carbon dioxide was 20, BUN is 11, and creatinine 0.97. LFTs, troponins, were all within normal limits. On today's labs, CO2 is down to 16, chloride is 111. Renal profile remains normal, CBC is unremarkable. Patient is still having persistent right-sided headache, and light sensitivity. He has been receiving Dilaudid, and Zofran for nausea Review of Systems All systems: negative Constitutional: Denies chills, Denies fever Eyes: bilateral photophobia, denies blurred vision, denies pain Ears, nose, mouth and throat: Denies headache, Denies sore throat Cardiovascular: Denies chest pain, Denies shortness of breath Respiratory: Denies cough Gastrointestinal: Reports nausea, Denies abdominal pain, Denies diarrhea, Denies vomiting Genitourinary: Denies dysuria, Denies hematuria Musculoskeletal: Denies myalgias Integumentary: Denies pruritus, Denies rash Neurological: Denies numbness, Denies weakness Psychiatric: Denies anxiety, Denies depression Endocrine: Denies fatigue, Denies weight change Past Medical History Past Medical History: Asthma, COPD, Fibromyalgia, GERD/Reflux, Neurologic Disorder, Osteoarthritis (OA), Sleep Apnea/CPAP/BIPAP, Supraventricular Tachycardia (SVT) Additional Past Medical History / Comment(s): Multiple sclerosis, Optic neuritis , Anemia, Migraines, Adrenal insufficiency, Auto immune hepatitis, Avascular necrosis History of Any Multi-Drug Resistant Organisms: None Reported Past Surgical History: Bowel Resection, Joint Replacement, Orthopedic Surgery Additional Past Surgical History / Comment(s): Sinus surgery, Blepharoplasty jayleen eyes, POWER PORT -IMPLANTABLE PORT-under Left clavicle (2018) , Bowel adhesions, rt knee replacement , 8 INCH BOWEL REMOVED, jayleen total hip replacement. Multiple BRONCHOSCOPY, "Inspire" implant right neck for sleep apnea Past Anesthesia/Blood Transfusion Reactions: Blood Transfusion Reaction Additional Past Anesthesia/Blood Transfusion Reaction / Comment(s): HX OF BLOOD TRANSFUSION : HAS CARD STATING K ANTIBODY AFTER RECEIVING A TRANSFUSION Past Psychological History: Anxiety, Depression Smoking Status: Never smoker Past Alcohol Use History: None Reported Past Drug Use History: Marijuana Additional Drug Use History / Comment(s): Has medical marijuana card, uses occasionally., has not used it in months per patient - Past Family History Mother Family Medical History: Hypertension Father Family Medical History: COPD, Hypertension Additional Family Medical History / Comment(s): Father at the age of 69 yrs from emphysema Brother(s) Additional Family Medical History / Comment(s): Brother-[place] X2 Medications and Allergies Home Medications Medication Instructions Recorded Confirmed Type Montelukast [Singulair] 10 mg PO HS 07/14/13 12/01/17 History Fluticasone/Vilanterol [Breo 1 puff INHALATION RT-DAILY 11/19/15 12/01/17 History Ellipta 200-25 Mcg INH] Promethaz-Cod 6.25-10 mg/5 ml 5 ml PO Q4-6H PRN 03/06/16 12/01/17 History [Phenergan with Codeine] Mometasone Inhalr 220 Mcg/Puff 2 puff INHALATION RT-DAILY 03/07/16 12/01/17 History [Asmanex] DULoxetine HCL [Cymbalta] 60 mg PO QAM 11/13/16 12/01/17 History Esomeprazole Magnesium [NexIUM] 40 mg PO HS 01/05/17 12/01/17 History Fexofenadine/Pseudoephedrine 1 tab PO DAILY 01/05/17 12/01/17 History [Renetta-D 24 Hour Tablet] Fluticasone Nasal [place] [Flonase 2 spray EA NOSTRIL BID 01/05/17 12/01/17 History Nasal [place]] Prochlorperazine [Compazine] 10 mg PO Q8H PRN 01/05/17 12/01/17 History ALPRAZolam [Xanax] 0.5 mg PO TID PRN 12/01/17 12/01/17 History Cholecalciferol (Vitamin D3) 12,000 unit PO DAILY 12/01/17 12/01/17 History [Vitamin D3] Cholestyramine (with Sugar) 4 gm PO BID 12/01/17 12/01/17 History [Questran] Fluconazole [Diflucan] 100 mg PO BID PRN 12/01/17 12/01/17 History Hydrocortisone [Cortef] 2.5 mg PO DAILY 12/01/17 12/01/17 History Teriflunomide [Aubagio] 7 mg PO DAILY 12/01/17 12/01/17 History Topiramate 50 mg PO HS 12/01/17 12/01/17 History Xeomin 1 injection IM Q90D 12/01/17 12/01/17 History traZODone HCL 150 mg PO HS 12/01/17 12/01/17 History Allergies Allergy/AdvReac Type Severity Reaction Status Date / Time latex Allergy Severe Anaphylaxis Verified 12/01/17 12:10 Sulfa (Sulfonamide Allergy Severe Rash/Hives Verified 12/01/17 12:10 Antibiotics) adhesive Allergy Rash/Hives Verified 12/01/17 12:10 alcohol Allergy Rash/Hives Verified 12/01/17 12:10 [From Mastisol Adhesive] amoxicillin Allergy Rash/Hives Verified 12/01/17 12:10 glatiramer (copolymer 1) Allergy Unknown Verified 12/01/17 12:10 [From Copaxone] gum mastic Allergy Rash/Hives Verified 12/01/17 12:10 [From Mastisol Adhesive] interferon beta-1b Allergy Unknown Verified 12/01/17 12:10 [From Betaseron] methyl salicylate Allergy Rash/Hives Verified 12/01/17 12:10 [From Mastisol Adhesive] mold Allergy Unknown Verified 12/01/17 12:10 ragweed pollen Allergy Unknown Verified 12/01/17 12:10 storax Allergy Rash/Hives Verified 12/01/17 12:10 [From Mastisol Adhesive] sulfamethoxazole Allergy Rash/Hives Verified 12/01/17 12:10 [From Bactrim] trimethoprim [From Bactrim] Allergy Rash/Hives Verified 12/01/17 12:10 bupropion HCl AdvReac Severe Rash/Hives Verified 12/01/17 12:10 [From Wellbutrin] gluten AdvReac Severe Nausea & Verified 12/01/17 12:10 Vomiting & Diarrhea interferon beta AdvReac Severe Rash/Hives Verified 12/01/17 12:10 interferon beta-1a AdvReac Severe Rash/Hives Verified 12/01/17 12:10 [From Avonex] lamotrigine [From Lamictal] AdvReac Severe Rash/Hives Verified 12/01/17 12:10 milk AdvReac Severe Nausea & Verified 12/01/17 12:10 Vomiting oxaprozin [From Daypro] AdvReac Severe Rash/Hives Verified 12/01/17 12:10 Penicillins AdvReac Severe Rash/Hives Verified 12/01/17 12:10 azithromycin AdvReac Unknown Rash/Hives, Verified 12/01/17 12:10 RED SKIN, ITCHING doxycycline AdvReac Unknown Rash/Hives Verified 12/01/17 12:10 albumin human AdvReac Rash/Hives Verified 12/01/17 12:10 [From Rebif (with albumin)] dicyclomine [From Bentyl] AdvReac Rash/Hives Verified 12/01/17 12:10 wheat AdvReac Nausea & Verified 12/01/17 12:10 Vomiting & Diarrhea cow's milk Allergy Unknown Uncoded 12/01/17 11:57 DUST Allergy Unknown Uncoded 12/01/17 11:57 STERISTRIPS AdvReac Severe BLISTERS Uncoded 12/01/17 11:57 TO SKIN Physical Exam Vitals: Vital Signs Temp Pulse Pulse Resp BP BP Pulse Ox 12/02/17 07:03 97.9 F 77 16 110/76 95 12/01/17 23:00 97.6 F 95 16 119/87 96 12/01/17 16:50 97.6 F 91 18 111/77 97 12/01/17 16:47 98.2 F 74 18 123/77 99 12/01/17 15:21 81 18 116/72 100 Intake and Output 12/01/17 12/02/17 12/02/17 22:59 06:59 14:59 Intake Total 700 100 Balance 700 100 Intake: Oral 700 100 Other: # Voids 1 2 GENERAL EXAM: Alert, pleasant, 52-year-old white female, comfortable in no apparent distress. She has her sunglasses on, for light sensitivity and a headache HEAD: Normocephalic/atraumatic. EYES: Normal reaction of pupils, equal size. Conjunctiva pink, sclera white. NOSE: Clear with pink turbinates. THROAT: No erythema or exudates. NECK: No masses, no JVD, no thyroid enlargement, no adenopathy. CHEST: No chest wall deformity. Symmetrical expansion. Patient has a neurostimulator and planted in the right chest LUNGS: course breath sounds, equal air entry with no crackles, wheeze, rhonchi or dullness. CVS: Regular rate and rhythm, normal S1 and S2, no gallops, no murmurs, no rubs ABDOMEN: Soft, nontender. No hepatosplenomegaly, normal bowel sounds, no guarding or rigidity. EXTREMITIES: No clubbing, no edema, no cyanosis, 2+ pulses and upper and lower extremities. MUSCULOSKELETAL: Muscle strength and tone normal. SPINE: No scoliosis or deformity SKIN: No rashes CENTRAL NERVOUS SYSTEM: Alert and oriented -3. No focal deficits, tone is normal in all 4 extremities. PSYCHIATRIC: Alert and oriented -3. Appropriate affect. Intact judgment and insight. Results - Laboratory Findings CBC and BMP: 10/09/18 12:25 12/01/17 12:25 PT/INR, D-dimer PT 9.7 sec (9.0-12.0) 12/01/17 12:25 INR 1.0 (<1.2) 12/01/17 12:25 Abnormal lab findings: Abnormal Labs 12/01/17 12/01/17 12/01/17 12:25 12:25 18:02 APTT 31.9 H Chloride 109 H Carbon Dioxide 20 L POC Glucose (mg/dL) 111 H 12/01/17 12/02/17 21:25 07:19 APTT Chloride Carbon Dioxide POC Glucose (mg/dL) 134 H 132 H - Diagnostic Findings Chest x-ray: report reviewed, image reviewed Additional studies: CT brain results reviewed, EKG reviewed Assessment and Plan Plan: Assessment: #1. Right-sided cephalgia, with numbness, tingling, light sensitivity, possibly related to multiple sclerosis #2. History of severe persistent bronchial asthma, currently stable #3. Obstructive sleep apnea, with intolerance to CPAP therapy, status post hypoglossal nerve stimulator for ALEXA. This was performed in June 2017 at [facility], and patient reports significant improvement in her AHI score #4. History of arterial insufficiency #5. Multiple sclerosis, currently on Aubagio #6. Optic neuritis #7. History of postural orthostatic tachycardia syndrome #8. GERD #10. Autoimmune hepatitis #11. Fibromyalgia, chronic back pain Plan: From pulmonary perspective patient's asthma is stable, her Breo-Ellipta was substituted for Symbicort per hospital formulary, however patient states she is not able to take Symbicort due to severe thrush formation. We will substitute it for Pulmicort and Perforomist, and the patient is in agreement. Patient is receiving high-dose IV steroids, neurology has been consulted. Have an ongoing right-sided headache, with numbness, tingling, and light sensitivity. Continue to follow I performed a history & physical examination of the patient and discussed their management with my nurse practitioner, Vibha Spivey. I reviewed the nurse practitioner's note and agree with the documented findings and plan of care. Lung sounds are positive for coarse breath sounds. The findings and the impression was discussed with the patient. I attest to the documentation by the nurse practitioner. Time with Patient: Greater than 30
[2017-12-02] MEDS: BUDESONIDE 0.5 MG/2 ML NEBU INHALATION SCH (12:58)
[2017-12-02] MEDS: CHOLECALCIFEROL 1,000 UNIT TAB PO SCH (13:10)
[2017-12-02] MEDS: THIAMINE 100 MG TAB PO SCH (13:11)
[2017-12-02] MEDS: MULTIVITAMINS, THERA 1 EACH TAB PO SCH (13:11)
[2017-12-02] MEDS: FOLIC ACID 1 MG TAB PO SCH (13:11)
--- NOTE | 2017-12-02 13:25 | PN ---
PROGRESS NOTE DATE OF SERVICE: 12/02/2017 This 52-year-old woman who was admitted with multiple sclerosis acute exacerbation also complains severe headache. The patient is started on high-dose IV steroids. Blood sugar is elevated. The patient also had sleep apnea stimulator. Because of that, MRI could not be done. At this time the patient is following with neuro- group supervisor [place] Patient is closely monitored. Neurology is following the patient closely. PAST MEDICAL HISTORY: Reviewed. REVIEW OF SYSTEMS: CARDIOVASCULAR SYSTEM: No angina. RESPIRATORY SYSTEM: As mentioned earlier. GI: As mentioned earlier. : As mentioned earlier. MEDICATIONS: Current medications are reviewed and include: 1. Tylenol 500 mg q.6 p.r.n. 2. [place] 5 mg q.6 p.r.n. 3. Xanax 0.5 t.i.d. p.r.n. 4. Pulmicort 0.5 b.i.d. 5. Vitamin D3, 12,000 p.o. daily. 6. Questran 4 grams p.o. b.i.d. 7. Cymbalta 60 mg q.a.m. 8. Diflucan 100 mg p.o. b.i.d. 9. Flonase. 10.Folic acid. 11.Perforomist 20 mcg b.i.d. 12.Heparin subcu b.i.d. 13.Cortef 2.5 mg daily. 14.Dilaudid. 15.NovoLog. 16.Claritin . 17.Solu-Medrol 250 mg IV q.6. 18.Singulair 10 mg q.h.s. 19.Multivitamins. 20.Narcan 0.2 mg p.r.n. PHYSICAL EXAMINATION: On physical exam, the patient is alert, oriented x3. Pulse 95, blood pressure 119/87, respirations 16, temperature 97.6, pulse ox 96% on room air. HEENT: Conjunctivae normal. Oral mucosa moist. Neck is no jugular venous distention. No carotid bruit. No lymph node enlargement. CARDIOVASCULAR: S1 and S2 muffled. RESPIRATORY: Breath sounds diminished at the bases. No rhonchi. No crackles. ABDOMEN: Soft, nontender. LEGS: No edema. No swelling. NERVOUS SYSTEM: Higher functions as mentioned earlier. Cranial nerves no nystagmus. Vision is diminished, Mild diffuse weakness. No sensory abnormalities. LYMPHATICS: No lymphadenopathy of the neck, axillae or groin. SKIN: No ulcer, rash or bleeding. LABS: Labs at this time shows WBC 6.6, hemoglobin 12.7. CO2 is 16. Glucose 138. ASSESSMENT: 1. Headache and diminished vision, possibly multiple sclerosis acute exacerbation with optic neuritis. 2. Asthma, chronic obstructive pulmonary disease. 3. Fibromyalgia. 4. Increased random blood sugar secondary to steroids. 5. Gastroesophageal reflux disease. 6. History of degenerative joint disease. 7. History of sleep apnea. 8. History of supraventricular tachycardia. 9. History of optic neuritis. 10.History of migraines. 11.History of adrenal insufficiency. 12.History of autoimmune hepatitis. 13.History of necrosis. 14.History of degenerative joint disease. 15.History of anxiety, depression. 16.Medical marijuana history. RECOMMENDATIONS AND DISCUSSION: Recommend to continue current medications and symptomatic treatment in this patient with multiple complex medical issues. Continue with the high-dose IV steroids. Monitor blood sugars closely, insulin to scale. Otherwise, I would also recommend Neurology consultation, pain management. See orders for details. Prognosis guarded because of multiple complex medical issues. Further recommendations to follow. MMODL / IJN: [id number] / TAO
--- NOTE | 2017-12-02 13:59 | CDI ---
Last Revision, January 2017 Documentation Clarification Form Date: 12/02/17 From: Michelle Pabon RN Admit Date: 12/01/2017 3:05:00 PM Patient Name: Tiarra Weaver Visit Number: [id number] ATTENTION: The Clinical Documentation Specialists (CDI) and [facility] Coding Staff appreciate your assistance in clarifying documentation. Please respond to the clarification below the line at the bottom and electronically sign. The CDI & [facility] Coding staff will review the response and follow-up if needed. Please note: Queries are made part of the Legal Health Record. If you have any questions, please contact the author of this message via ITS. Pacheco Harris MD, Documentation of COPD is located in the consult note dated 12/02 Pt. admitted with acute exacerbation of MS History/Risk Factors: asthma, COPD, GERD, MS, fibromyalgia, optic neuritis, adrenal insufficiency, autoimmune hepatitis, DJD Clinical Indicators: CXR: No acute cardiopulmonary process. Vital Signs on admission: T 98.8, P 101, R 20, 105/75, 98 % RA Lung and Respiratory Assessment: normal lung sounds Treatment: Nebulizers: Pulmicort, Symbicort, Flovent, Perforomist Steroids: Lilian Medrol Antibiotics: Diflucan PO In your professional opinion, can you please clarify if the above findings and treatment signify any of the following? Acute Exacerbation of Chronic Obstructive Pulmonary Disease (COPD) Acute on chronic bronchitis Chronic obstructive pulmonary disease with acute lower respiratory infection Emphysema Other condition, please specify Unable to determine MTDD
[2017-12-02] MEDS: ONDANSETRON 4 MG/2 ML VIAL IVP PRN (14:11)
[2017-12-02] MEDS: HYDROcodone/APAP 5-325MG 1 EACH TAB PO PRN ×2 (14:12→22:29)
[2017-12-02] MEDS: ALPRAZolam 0.5 MG TAB PO PRN (14:18)
[2017-12-02 14:24] LABS: Hemoglobin A1C 5.6 % (4.0-6.0)
[2017-12-02] MEDS: SODIUM CHLORIDE 0.9% 1,000 ML IV SCH (16:38)
[2017-12-02 17:01] LABS: Glucose,Whole Blood 122 mg/dL (75-99)
--- NOTE | 2017-12-02 20:01 | P.CNNES ---
History of Present Illness Consult date: 12/01/17 Reason for Consult: This patient is admitted for possible MS exacerbation. History of Present Illness: This patient is a 52-year-old right-handed white female who has underlying history of multiple sclerosis. Patient was brought into the emergency room on 12/01/2017 with a chief complaint of ongoing headache and numbness involving the right face and arm. She does have history of underlying MS and it was felt that her symptoms in the ER were consistent with an acute MS exacerbation. She has a history of multiple sclerosis which was treated with interferon therapy in the past but more recently she was switched over to a oral treatment for her MS. She states she has been taking Aubagio for the past 2 months. She underwent a CAT scan of the brain in the emergency room which failed to reveal any acute changes. There was hyperdense material noted within the sphenoid sinus which is unchanged from a CAT scan done in June 2017. She was subtotally admitted to the hospital for further management. She does have history of multiple complex medical problems including postural orthostatic tachycardia syndrome, fibromyalgia, chronic back pain, obstructive sleep apnea, status post hypoglossal nerve stimulator implantation, and bronchial asthma. Patient states that related to her multiple sclerosis she has had evidence of optic neuritis in the past. The patient states that due to her symptoms of paresthesias and headache it was felt she should be admitted to hospital for acute MS exacerbation. As noted CAT scan of the brain failed to reveal any acute changes. She is scheduled to have MRI of the brain done as outpatient. We have recommended she be placed on IV Solu-Medrol 250 mg IV piggyback every 6 hours for 3 days. Patient states she feels her MS has been slowly progressing and this was part of the reason to switch her to Aubagio. Patient does have history of optic neuritis in the past. We have suggested she have a follow-up with the small arms repairer Dr. Chandler for further evaluation of her visual changes. Apparently she has had episodes of optic neuritis off-and-on due to her long history of MS. We have suggested patient should be monitored for her steroid therapy for at least 3 days. The patient does have history of underlying asthma and is currently being treated with Symbicort and other inhalers. We will await further recommendations from pulmonary medicine. She does continue to complain of right-sided headache pain etiology of which is still unclear. Once again her CAT scan of the brain was negative for any acute changes. Due to the sinusitis she may benefit from ENT consultation is CAT scan did reveal evidence of sphenoid sinus involvement. Once again would recommend ENT consultation for their expert review. Hopefully she will be able to restart on her Aubagio soon after discharge. Neurology is now been consulted for further evaluation and recommendations. Overall prognosis at this time remains guarded. Review of Systems Constitutional: Denies chills, Denies fever Eyes: denies blurred vision, denies pain Ears, nose, mouth and throat: Reports nasal congestion, Reports sinus pain, Reports sinus pressure, Denies headache, Denies sore throat Cardiovascular: Denies chest pain, Denies shortness of breath Respiratory: Denies cough Gastrointestinal: Denies abdominal pain, Denies diarrhea, Denies nausea, Denies vomiting Genitourinary: Denies dysuria, Denies hematuria Integumentary: Denies pruritus, Denies rash Neurological: Reports headaches, Reports paresthesias, Reports tingling, Denies numbness, Denies weakness Psychiatric: Denies anxiety, Denies depression Endocrine: Denies fatigue, Denies weight change Past Medical History Past Medical History: Asthma, COPD, Fibromyalgia, GERD/Reflux, Neurologic Disorder, Osteoarthritis (OA), Sleep Apnea/CPAP/BIPAP, Supraventricular Tachycardia (SVT) Additional Past Medical History / Comment(s): Multiple sclerosis, Optic neuritis , Anemia, Migraines, Adrenal insufficiency, Auto immune hepatitis, Avascular necrosis History of Any Multi-Drug Resistant Organisms: None Reported Past Surgical History: Bowel Resection, Joint Replacement, Orthopedic Surgery Additional Past Surgical History / Comment(s): Sinus surgery, Blepharoplasty jayleen eyes, POWER PORT -IMPLANTABLE PORT-under Left clavicle (2018) , Bowel adhesions, rt knee replacement , 8 INCH BOWEL REMOVED, jayleen total hip replacement. Multiple BRONCHOSCOPY, "Inspire" implant right neck for sleep apnea Past Anesthesia/Blood Transfusion Reactions: Blood Transfusion Reaction Additional Past Anesthesia/Blood Transfusion Reaction / Comment(s): HX OF BLOOD TRANSFUSION : HAS CARD STATING K ANTIBODY AFTER RECEIVING A TRANSFUSION Past Psychological History: Anxiety, Depression Smoking Status: Never smoker Past Alcohol Use History: None Reported Past Drug Use History: Marijuana Additional Drug Use History / Comment(s): Has medical marijuana card, uses occasionally., has not used it in months per patient - Past Family History Mother Family Medical History: Hypertension Father Family Medical History: COPD, Hypertension Additional Family Medical History / Comment(s): Father at the age of 69 yrs from emphysema Brother(s) Additional Family Medical History / Comment(s): Brother-[place] X2 Medications and Allergies Home Medications Medication Instructions Recorded Confirmed Type Montelukast [Singulair] 10 mg PO HS 07/14/13 12/01/17 History Fluticasone/Vilanterol [Breo 1 puff INHALATION RT-DAILY 11/19/15 12/01/17 History Ellipta 200-25 Mcg INH] Promethaz-Cod 6.25-10 mg/5 ml 5 ml PO Q4-6H PRN 03/06/16 12/01/17 History [Phenergan with Codeine] Mometasone Inhalr 220 Mcg/Puff 2 puff INHALATION RT-DAILY 03/07/16 12/01/17 History [Asmanex] DULoxetine HCL [Cymbalta] 60 mg PO QAM 11/13/16 12/01/17 History Esomeprazole Magnesium [NexIUM] 40 mg PO HS 01/05/17 12/01/17 History Fexofenadine/Pseudoephedrine 1 tab PO DAILY 01/05/17 12/01/17 History [Renetta-D 24 Hour Tablet] Fluticasone Nasal [place] [Flonase 2 spray EA NOSTRIL BID 01/05/17 12/01/17 History Nasal [place]] Prochlorperazine [Compazine] 10 mg PO Q8H PRN 01/05/17 12/01/17 History ALPRAZolam [Xanax] 0.5 mg PO TID PRN 12/01/17 12/01/17 History Cholecalciferol (Vitamin D3) 12,000 unit PO DAILY 12/01/17 12/01/17 History [Vitamin D3] Cholestyramine (with Sugar) 4 gm PO BID 12/01/17 12/01/17 History [Questran] Fluconazole [Diflucan] 100 mg PO BID PRN 12/01/17 12/01/17 History Hydrocortisone [Cortef] 2.5 mg PO DAILY 12/01/17 12/01/17 History Teriflunomide [Aubagio] 7 mg PO DAILY 12/01/17 12/01/17 History Topiramate 50 mg PO HS 12/01/17 12/01/17 History Xeomin 1 injection IM Q90D 12/01/17 12/01/17 History traZODone HCL 150 mg PO HS 12/01/17 12/01/17 History Allergies Allergy/AdvReac Type Severity Reaction Status Date / Time latex Allergy Severe Anaphylaxis Verified 12/01/17 12:10 Sulfa (Sulfonamide Allergy Severe Rash/Hives Verified 12/01/17 12:10 Antibiotics) adhesive Allergy Rash/Hives Verified 12/01/17 12:10 alcohol Allergy Rash/Hives Verified 12/01/17 12:10 [From Mastisol Adhesive] amoxicillin Allergy Rash/Hives Verified 12/01/17 12:10 glatiramer (copolymer 1) Allergy Unknown Verified 12/01/17 12:10 [From Copaxone] gum mastic Allergy Rash/Hives Verified 12/01/17 12:10 [From Mastisol Adhesive] interferon beta-1b Allergy Unknown Verified 12/01/17 12:10 [From Betaseron] methyl salicylate Allergy Rash/Hives Verified 12/01/17 12:10 [From Mastisol Adhesive] mold Allergy Unknown Verified 12/01/17 12:10 ragweed pollen Allergy Unknown Verified 12/01/17 12:10 storax Allergy Rash/Hives Verified 12/01/17 12:10 [From Mastisol Adhesive] sulfamethoxazole Allergy Rash/Hives Verified 12/01/17 12:10 [From Bactrim] trimethoprim [From Bactrim] Allergy Rash/Hives Verified 12/01/17 12:10 bupropion HCl AdvReac Severe Rash/Hives Verified 12/01/17 12:10 [From Wellbutrin] gluten AdvReac Severe Nausea & Verified 12/01/17 12:10 Vomiting & Diarrhea interferon beta AdvReac Severe Rash/Hives Verified 12/01/17 12:10 interferon beta-1a AdvReac Severe Rash/Hives Verified 12/01/17 12:10 [From Avonex] lamotrigine [From Lamictal] AdvReac Severe Rash/Hives Verified 12/01/17 12:10 milk AdvReac Severe Nausea & Verified 12/01/17 12:10 Vomiting oxaprozin [From Daypro] AdvReac Severe Rash/Hives Verified 12/01/17 12:10 Penicillins AdvReac Severe Rash/Hives Verified 12/01/17 12:10 azithromycin AdvReac Unknown Rash/Hives, Verified 12/01/17 12:10 RED SKIN, ITCHING doxycycline AdvReac Unknown Rash/Hives Verified 12/01/17 12:10 albumin human AdvReac Rash/Hives Verified 12/01/17 12:10 [From Rebif (with albumin)] dicyclomine [From Bentyl] AdvReac Rash/Hives Verified 12/01/17 12:10 wheat AdvReac Nausea & Verified 12/01/17 12:10 Vomiting & Diarrhea cow's milk Allergy Unknown Uncoded 12/01/17 11:57 DUST Allergy Unknown Uncoded 12/01/17 11:57 STERISTRIPS AdvReac Severe BLISTERS Uncoded 12/01/17 11:57 TO SKIN Physical Examination - Vital Signs Vital Signs: Vital Signs Temp Pulse Pulse Resp BP BP Pulse Ox 12/01/17 16:50 97.6 F 91 18 111/77 97 12/01/17 16:47 98.2 F 74 18 123/77 99 12/01/17 15:21 81 18 116/72 100 12/01/17 11:52 98.8 F 101 H 20 105/75 98 Intake and Output 12/01/17 12/01/17 12/01/17 06:59 14:59 22:59 Intake Total 600 Balance 600 Intake: Oral 600 Other: # Voids 1 Weight 92.986 kg - Constitutional General appearance: average body habitus, cooperative - EENT EENT: PERRL, mucous membranes moist - Respiratory Respiratory: lungs clear, normal breath sounds - Cardiovascular Cardiovascular: regular rate, normal S1, normal S2 - Gastrointestinal Gastrointestinal: normoactive bowel sounds - Integumentary Integumentary: normal - Neurologic Cranial nerve examination: PERRL, EOMI, VFF, V1/V2/V3 grossly intact, face symmetric, intact gag reflex, intact corneal reflex, normal palatal elevation Speech examination: intact Sensorimotor examination: intact Motor examination - right side: 4/5: biceps, triceps, wrist flexion, wrist extension, coupon and bond collection clerk, hip flexors, knee extensors, dorsiflexion, toe extension (EHL) , plantarflexion Motor examination - left side: 4/5: biceps, triceps, wrist flexion, wrist extension, coupon and bond collection clerk, hip flexors, knee extensors, dorsiflexion, toe extension (EHL) , plantarflexion Detailed sensory examination: intact Incision: clean Reflex and gait examination: intact Reflexes: 1+: ankle, bicep, knee, tricep - Musculoskeletal Musculoskeletal: no pain - Psychiatric Psychiatric: mood/affect appropriate, cooperative Results - Laboratory Findings CBC and BMP: 12/02/17 11:01 12/02/17 11:01 Abnormal Lab Findings: Abnormal Labs 12/01/17 12/01/17 12/01/17 12:25 12:25 18:02 APTT 31.9 H Chloride 109 H Carbon Dioxide 20 L POC Glucose (mg/dL) 111 H Assessment and Plan (1) Cephalgia Current Visit: Yes Status: Acute Code(s): R51 - HEADACHE SNOMED Code(s): 05703003 (2) Exacerbation of multiple sclerosis Current Visit: Yes Status: Acute Code(s): G35 - MULTIPLE SCLEROSIS SNOMED Code(s): 201185767 (3) Acute bronchitis Current Visit: No Status: Acute Code(s): J20.9 - ACUTE BRONCHITIS, UNSPECIFIED SNOMED Code(s): 23509114 (4) Adrenal insufficiency Current Visit: No Status: Acute Code(s): E27.40 - UNSPECIFIED ADRENOCORTICAL INSUFFICIENCY SNOMED Code(s): 936951449 Plan: This patient is a 52-year-old female with history of multiple sclerosis. She is admitted to Hospital with symptoms of paresthesias and right-sided headache pain. Patient has been having numbness involving her right arm and face. We have recommended patient to begin on treatment for acute MS exacerbation with IV Solu-Medrol. She is currently on Solu-Medrol 250 mg IV piggyback every 6 hours. She should be maintained on this course of therapy for 3 days. We have recommended consultation with ophthalmology and Dr. Chandler for evaluation of her optic neuritis history. We would also recommend ENT consultation for evaluation of sphenoid sinusitis in this patient with right-sided cephalgia Headache. Patient should be restarted on her about she'll for long-term management of her multiple sclerosis. We will treat her for 3 days with IV Solu -Medrol with slow tapering doses of prednisone at the time of discharge. She should follow-up with her neurologist soon after discharge for further management of her multiple sclerosis. Her overall prognosis at this time remains guarded. Time with Patient: Greater than 30
[2017-12-02] MEDS: FORMOTEROL FUMARATE 20 MCG/2 ML NEBU INHALATION SCH (20:09)
[2017-12-02] MEDS: MONTELUKAST 10 MG TAB PO SCH (21:01)
[2017-12-02] MEDS: traZODone HCL 50 MG TAB PO SCH (21:01)
[2017-12-02] MEDS: TOPIRAMATE 25 MG TAB PO SCH (21:01)
[2017-12-02] MEDS: PANTOPRAZOLE 40 MG TABLET PO SCH (21:02)
[2017-12-02 21:07] LABS: Glucose,Whole Blood 129 mg/dL (75-99)
[2017-12-03] MEDS: HYDROmorphone 1 MG/ML 1 ML SYRINGE IVP PRN ×5 (01:50→21:31)
[2017-12-03] MEDS: methylPREDNISolone SOD SUCCI 250 MG in SODIUM CHLORIDE 0.9% 100 ML IVPB SCH ×4 (03:25→21:11)
[2017-12-03 07:36] LABS: Glucose,Whole Blood 144 mg/dL (75-99)
[2017-12-03] MEDS: FORMOTEROL FUMARATE 20 MCG/2 ML NEBU INHALATION SCH ×2 (07:44→20:15)
[2017-12-03] MEDS: BUDESONIDE 0.5 MG/2 ML NEBU INHALATION SCH ×2 (07:45→20:25)
[2017-12-03] MEDS: FLUTICASONE 110 MCG INHALER INHALATION SCH ×2 (07:45→20:15)
[2017-12-03] MEDS: INSULIN ASPART 100 UNIT/ML 1 ML 10 ML VIAL SQ SCH ×4 (08:05→21:44)
[2017-12-03] MEDS: FLUTICASONE 50MCG/SPRAY NASAL 16GM EA NOSTRIL SCH ×2 (08:06→21:17)
[2017-12-03] MEDS: TERIFLUNOMIDE 7 MG PO SCH (08:06)
[2017-12-03] MEDS: HEPARIN SODIUM,PORCINE 5,000 UNIT/ML 1 ML VIAL SQ SCH ×2 (08:06→21:13)
[2017-12-03] MEDS: CHOLESTYRAMINE (WITH SUGAR) 4 GM PACKET PO SCH ×2 (08:06→17:28)
[2017-12-03] MEDS: DULoxetine HCL 60 MG CAPSULE.DR PO SCH (08:06)
[2017-12-03] MEDS: LORATADINE-PSEUDOEPH 5-120 MG 1 EACH TAB.ER.12H PO SCH ×2 (08:08→21:17)
[2017-12-03] MEDS: HYDROCORTISONE 10 MG TAB PO SCH (08:08)
[2017-12-03] MEDS: ALPRAZolam 0.5 MG TAB PO PRN (08:15)
[2017-12-03 09:13] LABS: Basophils % (A) 0 %; Eosinophils # (A) 0.1 k/uL (0-0.7); Eosinophils % (A) 1 %; HCT 37.1 % (34.0-46.0); HGB 11.9 gm/dL (11.4-16.0); Lymphocytes # (A) 0.7 k/uL (1.0-4.8); Lymphocytes % (A) 6 %; MCH 29.7 pg (25.0-35.0); MCV 92.8 fL (80.0-100.0); Mean Platelet Volume 6.7; Monocytes # (A) 0.3 k/uL (0-1.0); Monocytes % (A) 2 %; Neutrophils % (A) 91 %; Platelet Count 224 k/uL (150-450); RDW 14.4 % (11.5-15.5)
[2017-12-03] MEDS: HYDROcodone/APAP 5-325MG 1 EACH TAB PO PRN ×3 (09:22→23:57)
[2017-12-03 09:23] LABS: Anion Gap 12 mmol/L; Blood Urea Nitrogen 11 mg/dL (7-17); Calcium 8.6 mg/dL (8.4-10.2); Carbon Dioxide 19 mmol/L (22-30); Chloride 111 mmol/L (98-107); Glucose 173 mg/dL (74-99); Potassium 3.8 mmol/L (3.5-5.1); Sodium 142 mmol/L (137-145)
[2017-12-03] MEDS: FOLIC ACID 1 MG TAB PO SCH (11:09)
[2017-12-03] MEDS: MULTIVITAMINS, THERA 1 EACH TAB PO SCH (11:09)
[2017-12-03] MEDS: CHOLECALCIFEROL 1,000 UNIT TAB PO SCH (11:09)
[2017-12-03] MEDS: THIAMINE 100 MG TAB PO SCH (11:09)
[2017-12-03 12:02] LABS: Glucose,Whole Blood 135 mg/dL (75-99)
[2017-12-03] MEDS ORDERED: LORazepam 0.5 MG TAB PO PRN (12:25)
[2017-12-03] MEDS ORDERED: CYCLOBENZAPRINE 5 MG TAB PO PRN (12:27)
[2017-12-03] MEDS: ONDANSETRON 4 MG/2 ML VIAL IVP PRN ×2 (12:39→23:57)
--- NOTE | 2017-12-03 13:53 | P.PN ---
Subjective Progress Note Date: 12/03/17 Principal diagnosis: Increased weakness with suspected multiple sclerosis exacerbation This is a 52-year-old white female patient of Dr. Dougherty, with past medical history of multiple sclerosis, severe persistent bronchial asthma, optic neuritis, postural orthostatic tachycardia syndrome, GERD, fibromyalgia, chronic back pain, obstructive sleep apnea with intolerance to CPAP therapy, adrenal insufficiency, migraine cephalgia, hypertension, status post hypoglossal nerve stimulator implantation, who presented to the emergency department on 12/01/2017 for complaint of an ongoing headache for the past 3 weeks. He describes her headache is unilateral, on the right side of her head, with right-sided facial numbness and tingling to right arm, palpitations. This was associated with nausea, and light sensitivity. Patient follows with Dr. aHrvey, has recently started her on Aubagio. Brain CT showed no acute intracranial hemorrhage or mass effect, and stable hyperdense material within the sphenoid sinus which was unchanged from previous CAT scan of the brain from June 2017. No lateralizing motor disturbances, no difficulty with speech. No breathing difficulty at this time, patient's asthma stable, her maintenance inhalers include Breo-Ellipta, and Asmanex. Chest x-ray showed no acute cardiopulmonary process. EKG showed normal sinus rhythm. Vital signs have been stable, room air pulse ox is 95%, hemodynamically stable, no complaints of chest pain, no shortness of breath, no fever or chills. She has been started on high-dose IV steroids, patient was seen by neurology last night, who recommended MRI of the brain however in view of the patient's implanted neurostimulator that MRI cannot be completed at this time. Labs showed CBC within normal limits, no leukocytosis, sodium 138, potassium 3.8, chloride is 109, carbon dioxide was 20, BUN is 11, and creatinine 0.97. LFTs, troponins, were all within normal limits. On today's labs, CO2 is down to 16, chloride is 111. Renal profile remains normal, CBC is unremarkable. Patient is still having persistent right-sided headache, and light sensitivity. He has been receiving Dilaudid, and Zofran for nausea. The patient is seen again today 12/03/2017 in follow-up on the regular medical floor. She is currently awake and alert in no acute distress. She is having ongoing issues with headache and more so on the right side of her face and right arm. She's been seen and evaluated by neurology. She was initiated on IV Solu-Medrol 250 mg IV piggyback every 6 hours. She remains on Aubagio. No pulmonary complaints. Maintaining good O2 saturations in the 90s on room air. She's been afebrile. Hemodynamically stable. Objective - Vital Signs Vital signs: Vital Signs Temp 97.7 F 12/03/17 06:40 Pulse 72 12/03/17 07:45 Resp 18 12/03/17 06:40 BP 121/76 12/03/17 06:40 Pulse Ox 94 L 12/03/17 06:40 Intake & Output 12/02/17 12/03/17 12/03/17 18:59 06:59 18:59 Intake Total 100 1150 200 Balance 100 1150 200 Intake: Intake, IV Titration 100 Amount methylPREDNISolone SOD 100 SUCCI 250 mg In Sodium Chloride 0.9% 100 ml @ 100 mls/hr IVPB Q6H YANIV Rx#:[id number] Oral 1150 200 Other: # Voids 2 2 - Exam GENERAL EXAM: Alert, pleasant, 52-year-old white female, comfortable in no apparent distress. HEAD: Normocephalic/atraumatic. EYES: Normal reaction of pupils, equal size. Conjunctiva pink, sclera white. NOSE: Clear with pink turbinates. THROAT: No erythema or exudates. NECK: No masses, no JVD, no thyroid enlargement, no adenopathy. CHEST: No chest wall deformity. Symmetrical expansion. Patient has a neurostimulator and planted in the right chest LUNGS: course breath sounds, equal air entry with no crackles, wheeze, rhonchi or dullness. CVS: Regular rate and rhythm, normal S1 and S2, no gallops, no murmurs, no rubs ABDOMEN: Soft, nontender. No hepatosplenomegaly, normal bowel sounds, no guarding or rigidity. EXTREMITIES: No clubbing, no edema, no cyanosis, 2+ pulses and upper and lower extremities. MUSCULOSKELETAL: Muscle strength and tone normal. SPINE: No scoliosis or deformity SKIN: No rashes CENTRAL NERVOUS SYSTEM: Alert and oriented -3. No focal deficits, tone is normal in all 4 extremities. PSYCHIATRIC: Alert and oriented -3. Appropriate affect. Intact judgment and insight. - Labs CBC & Chem 7: 12/03/17 08:57 12/03/17 08:57 Labs: Abnormal Lab Results - Last 24 Hours (Table) 12/02/17 12/02/17 12/03/17 Range/Units 16:53 20:41 07:26 WBC (3.8-10.6) k/uL Neutrophils # (1.3-7.7) k/uL Lymphocytes # (1.0-4.8) k/uL Chloride (98-107) mmol/L Carbon Dioxide (22-30) mmol/L Glucose (74-99) mg/dL POC Glucose (mg/dL) 122 H 129 H 144 H (75-99) mg/dL 12/03/17 12/03/17 12/03/17 Range/Units 08:57 08:57 11:53 WBC 11.0 H (3.8-10.6) k/uL Neutrophils # 10.0 H (1.3-7.7) k/uL Lymphocytes # 0.7 L (1.0-4.8) k/uL Chloride 111 H (98-107) mmol/L Carbon Dioxide 19 L (22-30) mmol/L Glucose 173 H (74-99) mg/dL POC Glucose (mg/dL) 135 H (75-99) mg/dL Assessment and Plan Assessment: Assessment: #1. Right-sided cephalgia, with numbness, tingling, light sensitivity, possibly related to multiple sclerosis #2. History of severe persistent bronchial asthma, currently inactive and stable #3. Obstructive sleep apnea, with intolerance to CPAP therapy, status post hypoglossal nerve stimulator for ALEXA. This was performed in June 2017 at [facility], and patient reports significant improvement in her AHI score #4. History of arterial insufficiency #5. Multiple sclerosis, currently on Aubagio #6. Optic neuritis #7. History of postural orthostatic tachycardia syndrome #8. GERD #9. Autoimmune hepatitis #10. Fibromyalgia, chronic back pain Plan: The patient was seen and evaluated by Dr. Weiss. She remains stable from the pulmonary standpoint. Her asthma is currently inactive and stable. Her lungs are clear. No wheezing. She is continued on her maintenance medications. She' s been seen and evaluated by neurology. She remains on IV Solu-Medrol and Aubagio. We will follow-up the patient on an as-needed basis. I, the cosigning physician, performed a history & physical examination of the patient. Lungs sounds are clear. Maintaining good O2 saturations in the 90s on room air. I discussed the assessment and plan of care with my nurse practitioner, Carmen Matthew. I attest to the above note as dictated by her.
[2017-12-03] MEDS: SODIUM CHLORIDE 0.9% 1,000 ML IV SCH (15:00)
[2017-12-03 17:01] LABS: Glucose,Whole Blood 133 mg/dL (75-99)
--- NOTE | 2017-12-03 18:13 | PN ---
PROGRESS NOTE DATE OF SERVICE: 12/03/2017 This 52-year-old woman is admitted with multiple sclerosis, acute exacerbation, also has significant pain also. The patient on IV steroids. No chest pain. No palpitations. No fever. Neurology following the patient closely. EXAM: Alert and oriented times three. Pulse is 86. Blood pressure 125/70, respiration 18, temperature 97.7, pulse ox 94% on room air. HEENT: Conjunctivae normal. Oral mucosa moist. Neck is no jugular venous distention. Cardiac: S1, S2. Respiration: Breath sounds diminished in the bases. No rhonchi. No crackles. Abdomen is soft. Nontender. Diffusely weak. Vision is also impaired bilaterally which is stable. LABS: WBC 11, hemoglobin 11.9. ASSESSMENT: 1. Acute multiple sclerosis acute exacerbation with headache and diminished vision. 2. Asthma/chronic obstructive pulmonary disease. 3. History of fibromyalgia. 4. Increased random blood sugar secondary to steroids. 5. Acute on chronic pain syndrome. 6. Gastroesophageal reflux disease. 7. History of degenerative joint disease. 8. History of sleep apnea. 9. History of purulent ventricular tachycardia. 10.History of optic neuritis. 11.History of migraine headaches . 12. degenerative joint disease. 13.History of anxiety, depression. 14.Medical marijuana . RECOMMENDATIONS AND DISCUSSION: Recommend to continue current medications, management and symptomatic treatment. Continue with IV steroids. Monitor blood sugars closely. MRA outpatient. Closely follow with Neurology. Ophthalmology evaluation. Guarded prognosis. Further recommendations to follow. MMODL / IJN: [id number] /
[2017-12-03 21:14] LABS: Glucose,Whole Blood 115 mg/dL (75-99)
[2017-12-03] MEDS: traZODone HCL 50 MG TAB PO SCH (21:15)
[2017-12-03] MEDS: TOPIRAMATE 25 MG TAB PO SCH (21:15)
[2017-12-03] MEDS: MONTELUKAST 10 MG TAB PO SCH (21:15)
[2017-12-03] MEDS: PANTOPRAZOLE 40 MG TABLET PO SCH (21:15)
[2017-12-04] MEDS: methylPREDNISolone SOD SUCCI 250 MG in SODIUM CHLORIDE 0.9% 100 ML IVPB SCH ×4 (03:07→21:27)
[2017-12-04] MEDS: PROMETHAZ-COD 6.25-10 MG/5 ML 5 ML CUP PO PRN ×2 (05:17→20:28)
[2017-12-04] MEDS: HYDROcodone/APAP 5-325MG 1 EACH TAB PO PRN ×2 (06:47→14:27)
[2017-12-04 07:34] LABS: Glucose,Whole Blood 110 mg/dL (75-99)
[2017-12-04] MEDS: CHOLESTYRAMINE (WITH SUGAR) 4 GM PACKET PO SCH ×2 (08:02→18:09)
[2017-12-04] MEDS: FLUTICASONE 50MCG/SPRAY NASAL 16GM EA NOSTRIL SCH ×2 (08:02→21:27)
[2017-12-04] MEDS: HEPARIN SODIUM,PORCINE 5,000 UNIT/ML 1 ML VIAL SQ SCH ×2 (08:03→21:27)
[2017-12-04] MEDS: DULoxetine HCL 60 MG CAPSULE.DR PO SCH (08:05)
[2017-12-04] MEDS: HYDROCORTISONE 10 MG TAB PO SCH (08:06)
[2017-12-04] MEDS: LORATADINE-PSEUDOEPH 5-120 MG 1 EACH TAB.ER.12H PO SCH ×2 (08:08→21:27)
[2017-12-04] MEDS: ALPRAZolam 0.5 MG TAB PO PRN ×2 (08:11→14:28)
[2017-12-04] MEDS: FORMOTEROL FUMARATE 20 MCG/2 ML NEBU INHALATION SCH ×2 (08:26→20:53)
[2017-12-04] MEDS: BUDESONIDE 0.5 MG/2 ML NEBU INHALATION SCH ×2 (08:27→21:02)
[2017-12-04] MEDS: FLUTICASONE 110 MCG INHALER INHALATION SCH ×2 (08:27→20:53)
[2017-12-04 08:32] LABS: Basophils % (A) 0 %; Eosinophils # (A) 0.1 k/uL (0-0.7); Eosinophils % (A) 1 %; HCT 37.6 % (34.0-46.0); HGB 11.5 gm/dL (11.4-16.0); Hypochromasia Slight; Lymphocytes # (A) 0.4 k/uL (1.0-4.8); Lymphocytes % (A) 5 %; MCH 29.1 pg (25.0-35.0); MCHC 30.6 g/dL (31.0-37.0); Mean Platelet Volume 7.8; Monocytes # (A) 0.4 k/uL (0-1.0); Monocytes % (A) 5 %; Neutrophils # (A) 7.4 k/uL (1.3-7.7); Neutrophils % (A) 89 %; Platelet Count 218 k/uL (150-450); RBC 3.96 m/uL (3.80-5.40); RDW 14.4 % (11.5-15.5); WBC 8.3 k/uL (3.8-10.6)
[2017-12-04 08:40] LABS: Anion Gap 9 mmol/L; Blood Urea Nitrogen 17 mg/dL (7-17); Calcium 8.7 mg/dL (8.4-10.2); Carbon Dioxide 22 mmol/L (22-30); Chloride 109 mmol/L (98-107); Glucose 110 mg/dL (74-99); Potassium 4.6 mmol/L (3.5-5.1); Sodium 140 mmol/L (137-145)
[2017-12-04] MEDS: INSULIN ASPART 100 UNIT/ML 1 ML 10 ML VIAL SQ SCH ×4 (08:52→21:38)
[2017-12-04] MEDS: TERIFLUNOMIDE 7 MG PO SCH (08:57)
[2017-12-04] MEDS: HYDROmorphone 1 MG/ML 1 ML SYRINGE IVP PRN ×2 (10:43→21:39)
[2017-12-04] MEDS: FOLIC ACID 1 MG TAB PO SCH (11:42)
[2017-12-04] MEDS: MULTIVITAMINS, THERA 1 EACH TAB PO SCH (11:43)
[2017-12-04] MEDS: THIAMINE 100 MG TAB PO SCH (11:43)
[2017-12-04] MEDS: CHOLECALCIFEROL 1,000 UNIT TAB PO SCH (11:47)
[2017-12-04 12:18] LABS: Glucose,Whole Blood 106 mg/dL (75-99)
[2017-12-04 17:46] LABS: Glucose,Whole Blood 123 mg/dL (75-99)
[2017-12-04] MEDS: SODIUM CHLORIDE 0.9% 1,000 ML IV SCH (20:04)
--- NOTE | 2017-12-04 20:12 | CONS ---
CONSULTATION CHIEF COMPLAINT: Loss of vision, both eyes on Thursday night. HISTORY OF PRESENT ILLNESS: Patient is a known case of optic neuritis, being followed with a neuroophthalmologist in [facility]. The patient got several attacks of optic neuritis. She claims her vision was 20/40 both eyes during the last several months. She noticed decreased vision in both eyes on Thursday. Was seen in the emergency room, had a CT scan which shows no acute hemorrhage or mass effect or ischemia. She could not have an MRI. Eye examination: Vision is 20/100 right eye and 20/50, left eye. Right pupil shows relative afferent pupillary defect. Intraocular pressure 18 mmHg both eyes. Lens clear. Retina, no hemorrhages, no detachment. Optic disc shows severe pallor, both with possible drusen. ASSESSMENT: Resistant bilateral optic neuritis. PLAN: Patient is on intravenous steroids for more than 3 days. If not responding by 5 days, she should be seen by her neuroophthalmologist in [facility] who is more familiar with her case. She cannot have MRI due to some metals in her body. Visual field by confrontation shows generalized depression in the right eye with a central island. Left eye shows a nasal defect. I agree with intravenous steroids to be re-evaluated on Thursday with a neuroophthalmologist, who is her previous doctor in [facility]. Thank you for this consultation. MMODL / IJN: [id number] /
[2017-12-04] MEDS: traZODone HCL 50 MG TAB PO SCH (21:27)
[2017-12-04] MEDS: MONTELUKAST 10 MG TAB PO SCH (21:27)
[2017-12-04] MEDS: TOPIRAMATE 25 MG TAB PO SCH (21:27)
[2017-12-04] MEDS: PANTOPRAZOLE 40 MG TABLET PO SCH (21:28)
[2017-12-04 21:32] LABS: Glucose,Whole Blood 153 mg/dL (75-99)
[2017-12-05] MEDS: methylPREDNISolone SOD SUCCI 250 MG in SODIUM CHLORIDE 0.9% 100 ML IVPB SCH ×4 (03:00→21:41)
[2017-12-05] MEDS: PROMETHAZ-COD 6.25-10 MG/5 ML 5 ML CUP PO PRN ×2 (05:18→10:13)
--- NOTE | 2017-12-05 06:39 | P.PN ---
Subjective Progress Note Date: 12/05/17 Principal diagnosis: Optic neuritis Progress note dated 12/05/2017 52-year-old female who presented with a exacerbation of her multiple sclerosis. She does have a history of MS, long-standing, as well as optic neuritis. She' s currently being seen by neurology and ophthalmology. She states that the vision in her right eye is still poor. She has history of multiple medical problems including chronic bronchial asthma which is severe, sleep apnea syndrome, status post recent hypoglossal nerve stimulator, adrenal insufficiency possible orthostatic tachycardia syndrome, GERD, autoimmune hepatitis, and fibromyalgia among other things. Her asthma is currently stable. She is receiving steroids for her MS/optic neuritis. She is agreeable be discharged in next 24-48 hours. She denies any significant shortness of breath chest tightness wheezing cough or phlegm production. Objective - Vital Signs Vital signs: Vital Signs Temp 97.5 F L 12/04/17 23:00 Pulse 88 12/04/17 23:00 Resp 18 12/04/17 23:00 BP 133/75 12/04/17 23:00 Pulse Ox 95 12/04/17 23:00 Intake & Output 12/04/17 12/04/17 12/05/17 06:59 18:59 06:59 Intake Total 363 369 9139 Balance 116 369 5884 Intake: Oral 947 195 4120 Other: # Voids 1 2 1 - Exam No acute distress, oriented 3. HEENT examination is grossly unremarkable. Mucous membranes are moist. No oral lesions. Neck supple. Full range of motion. No adenopathy thyromegaly or neck vein distention. Cardiovascular examination reveals regular rhythm rate. S1-S2 normal. No S3 or S4. No discernible murmur noted. Lungs reveal mostly clear breath sounds. A few scattered rhonchi are noted. No wheezes or crackles. Breath sounds are equal bilaterally. Slight prolongation on forced maneuver. Abdomen soft bowel sounds are heard. No masses or tenderness. Extremities are intact. No cyanosis clubbing or edema. Skin is without rash or lesion. Neurologic examination is brief but nonfocal. - Labs CBC & Chem 7: 12/04/17 07:39 12/04/17 07:39 Labs: Abnormal Lab Results - Last 24 Hours (Table) 12/04/17 12/04/17 12/04/17 Range/Units 07:25 07:39 07:39 MCHC 30.6 L (31.0-37.0) g/dL Lymphocytes # 0.4 L (1.0-4.8) k/uL Chloride 109 H (98-107) mmol/L Glucose 110 H (74-99) mg/dL POC Glucose (mg/dL) 110 H (75-99) mg/dL 12/04/17 12/04/17 12/04/17 Range/Units 12:16 17:44 21:31 MCHC (31.0-37.0) g/dL Lymphocytes # (1.0-4.8) k/uL Chloride (98-107) mmol/L Glucose (74-99) mg/dL POC Glucose (mg/dL) 106 H 123 H 153 H (75-99) mg/dL Assessment and Plan Assessment: Assessment Visual disturbance, mostly involving the right eye, with associated cephalgia numbness tingling and light sensitivity, likely all related to an exacerbation of her MS/optic neuritis Severe chronic bronchial asthma, reasonably stable History of sleep apnea syndrome, status post hypoglossal nerve stimulator implantation History of adrenal insufficiency History of multiple sclerosis/optic neuritis Postural orthostatic tachycardia syndrome History of GERD Autoimmune hepatitis Fibromyalgia Multiple other medical problems and comorbidities Plan: Plan dated 12/05/2017 Currently, the patient is stable from the asthma standpoint. She has been seen by both neurology and by ophthalmology. The patient states that she is likely to get another day's worth of high-dose corticosteroids for her MS/optic neuritis. The vision in her left eye has improved but the right eye vision is still poor. Labs are reviewed. CBC is essentially normal. Sodium potassium normal. Chlorides 109, CO2 22, BUN and creatinine were both normal. The rest of the labs medications and orders are reviewed. We'll see as needed. No additional recommendations are made. Prognosis is guarded. Time with Patient: Less than 30
[2017-12-05 06:44] LABS: Glucose,Whole Blood 117 mg/dL (75-99)
[2017-12-05] MEDS: CHOLESTYRAMINE (WITH SUGAR) 4 GM PACKET PO SCH ×2 (06:46→17:32)
[2017-12-05] MEDS: INSULIN ASPART 100 UNIT/ML 1 ML 10 ML VIAL SQ SCH ×4 (06:59→21:41)
[2017-12-05 07:45] LABS: Basophils % (A) 0 %; Eosinophils # (A) 0.1 k/uL (0-0.7); Eosinophils % (A) 1 %; HCT 39.2 % (34.0-46.0); HGB 12.2 gm/dL (11.4-16.0); Hypochromasia Slight; Lymphocytes # (A) 0.4 k/uL (1.0-4.8); Lymphocytes % (A) 7 %; MCH 30.1 pg (25.0-35.0); MCHC 31.2 g/dL (31.0-37.0); MCV 96.6 fL (80.0-100.0); Mean Platelet Volume 7.6; Monocytes # (A) 0.4 k/uL (0-1.0); Monocytes % (A) 6 %; Neutrophils # (A) 5.6 k/uL (1.3-7.7); Neutrophils % (A) 86 %; Platelet Count 212 k/uL (150-450); RBC 4.06 m/uL (3.80-5.40); RDW 14.4 % (11.5-15.5); WBC 6.5 k/uL (3.8-10.6)
[2017-12-05] MEDS: FLUTICASONE 110 MCG INHALER INHALATION SCH ×2 (07:46→20:20)
[2017-12-05] MEDS: SYMBICORT 160-4.5 MCG INHALER INHALATION SCH ×2 (07:46→20:20)
[2017-12-05 07:57] LABS: Anion Gap 9 mmol/L; Blood Urea Nitrogen 16 mg/dL (7-17); Calcium 8.7 mg/dL (8.4-10.2); Carbon Dioxide 22 mmol/L (22-30); Chloride 109 mmol/L (98-107); Glucose 124 mg/dL (74-99); Potassium 4.2 mmol/L (3.5-5.1); Sodium 140 mmol/L (137-145)
[2017-12-05] MEDS: FLUTICASONE 50MCG/SPRAY NASAL 16GM EA NOSTRIL SCH ×2 (08:57→21:40)
[2017-12-05] MEDS: HEPARIN SODIUM,PORCINE 5,000 UNIT/ML 1 ML VIAL SQ SCH ×2 (08:57→21:40)
[2017-12-05] MEDS: DULoxetine HCL 60 MG CAPSULE.DR PO SCH (08:57)
[2017-12-05] MEDS: HYDROCORTISONE 10 MG TAB PO SCH (08:58)
[2017-12-05] MEDS: TERIFLUNOMIDE 7 MG PO SCH (09:00)
[2017-12-05] MEDS: LORATADINE-PSEUDOEPH 5-120 MG 1 EACH TAB.ER.12H PO SCH ×2 (09:00→21:39)
[2017-12-05] MEDS: CHOLECALCIFEROL 1,000 UNIT TAB PO SCH (09:02)
[2017-12-05 11:31] LABS: Glucose,Whole Blood 103 mg/dL (75-99)
[2017-12-05] MEDS: FOLIC ACID 1 MG TAB PO SCH (12:43)
[2017-12-05] MEDS: THIAMINE 100 MG TAB PO SCH (12:43)
[2017-12-05] MEDS: MULTIVITAMINS, THERA 1 EACH TAB PO SCH (12:43)
[2017-12-05] MEDS: HYDROcodone/APAP 5-325MG 1 EACH TAB PO PRN (15:03)
[2017-12-05] MEDS: SODIUM CHLORIDE 0.9% 1,000 ML IV SCH (15:04)
[2017-12-05 17:18] LABS: Glucose,Whole Blood 129 mg/dL (75-99)
[2017-12-05 21:38] LABS: Glucose,Whole Blood 108 mg/dL (75-99)
[2017-12-05] MEDS: ALPRAZolam 0.5 MG TAB PO PRN (21:39)
[2017-12-05] MEDS: PANTOPRAZOLE 40 MG TABLET PO SCH (21:39)
[2017-12-05] MEDS: traZODone HCL 50 MG TAB PO SCH (21:40)
[2017-12-05] MEDS: TOPIRAMATE 25 MG TAB PO SCH (22:04)
[2017-12-05] MEDS: MONTELUKAST 10 MG TAB PO SCH (22:04)
[2017-12-06] MEDS: methylPREDNISolone SOD SUCCI 250 MG in SODIUM CHLORIDE 0.9% 100 ML IVPB SCH ×2 (03:55→09:26)
[2017-12-06] MEDS: PROMETHAZ-COD 6.25-10 MG/5 ML 5 ML CUP PO PRN (03:57)
[2017-12-06 06:19] LABS: Basophils % (A) 0 %; Eosinophils # (A) 0.1 k/uL (0-0.7); Eosinophils % (A) 1 %; HCT 38.4 % (34.0-46.0); HGB 12.5 gm/dL (11.4-16.0); Lymphocytes # (A) 0.4 k/uL (1.0-4.8); Lymphocytes % (A) 6 %; MCH 29.8 pg (25.0-35.0); MCHC 32.6 g/dL (31.0-37.0); Monocytes # (A) 0.4 k/uL (0-1.0); Monocytes % (A) 6 %; Neutrophils # (A) 6.2 k/uL (1.3-7.7); Neutrophils % (A) 87 %; Platelet Count 192 k/uL (150-450); RBC 4.21 m/uL (3.80-5.40); RDW 14.5 % (11.5-15.5); WBC 7.2 k/uL (3.8-10.6)
[2017-12-06 06:24] LABS: MCV 91.2 fL (80.0-100.0)
[2017-12-06] MEDS: CHOLESTYRAMINE (WITH SUGAR) 4 GM PACKET PO SCH (06:45)
[2017-12-06 06:46] LABS: Anion Gap 7 mmol/L; Blood Urea Nitrogen 19 mg/dL (7-17); Calcium 8.1 mg/dL (8.4-10.2); Carbon Dioxide 25 mmol/L (22-30); Chloride 107 mmol/L (98-107); Glucose 118 mg/dL (74-99); Potassium 3.8 mmol/L (3.5-5.1); Sodium 139 mmol/L (137-145)
[2017-12-06] MEDS: INSULIN ASPART 100 UNIT/ML 1 ML 10 ML VIAL SQ SCH ×2 (06:48→11:33)
[2017-12-06 06:49] LABS: Glucose,Whole Blood 129 mg/dL (75-99)
[2017-12-06] MEDS: SYMBICORT 160-4.5 MCG INHALER INHALATION SCH (08:00)
[2017-12-06] MEDS: FLUTICASONE 110 MCG INHALER INHALATION SCH (08:01)
[2017-12-06 08:37] VITALS: BP 147/75; PULSE 88; RESP 19; TEMP 98.3
[2017-12-06] MEDS: DULoxetine HCL 60 MG CAPSULE.DR PO SCH (09:28)
[2017-12-06] MEDS: FLUTICASONE 50MCG/SPRAY NASAL 16GM EA NOSTRIL SCH (09:28)
[2017-12-06] MEDS: TERIFLUNOMIDE 7 MG PO SCH (09:28)
[2017-12-06] MEDS: LORATADINE-PSEUDOEPH 5-120 MG 1 EACH TAB.ER.12H PO SCH (09:28)
[2017-12-06] MEDS: HYDROCORTISONE 10 MG TAB PO SCH (09:30)
[2017-12-06] MEDS: HEPARIN SODIUM,PORCINE 5,000 UNIT/ML 1 ML VIAL SQ SCH (09:31)
--- NOTE | 2017-12-06 09:36 | P.PN ---
Subjective Progress Note Date: 12/05/17 This patient is a 52-year-old female admitted to Hospital with symptoms of acute MS exacerbation. Patient has been started on IV Solu-Medrol for treatment of her acute MS exacerbation. She also has multiple other complex medical issues which are being followed up with multiple specialists. We have recommended an ophthalmology consultation with Dr. Chandler for further evaluation of her optic neuritis history. She is complaining of right-sided cephalgia and headaches which may be related to known history of optic neuritis. She is also noted on CAT scan as having severe sphenoid sinusitis. We have recommended an ENT consultation for further evaluation. Patient was seen by pulmonary medicine today for her history of severe persistent bronchial asthma. She also has history of obstructive sleep apnea. She is being treated with Symbicort which was substituted with Pulmicort in hospital. She is to follow up with pulmonary medicine for further management. We have recommended the patient undergo 3 days of IV Solu-Medrol therapy for her acute MS exacerbation. She may then be restarted on her [place] for long-term management of her MS. the patient has been followed in the outpatient neuro-ophthalmology clinic by Dr. White in the past. She does see him on a fairly regular basis. We are recommending that she follow up with him soon after discharge from the hospital for reevaluation of her history of optic neuritis. We will continue IV Solu- Medrol therapy for a total of 3 days and pending her response she may be considered for an additional 2 days if necessary. The patient is unable to go for MRI of the brain as she has a sleep apnea stimulator. For this reason her MRI was canceled and she may consider follow-up as outpatient for further reevaluation. Would consider consultation with pain management as her headache pain continues. As noted we will continue to follow her closely for her MS condition and hopefully she will be ready for discharge in the next day or 2. Patient may be considered for discharge home tomorrow. 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 She is to have follow-up with the neuro-pharmacy informatics manager Dr. White as well. We will continue close neurological follow-up this patient during this admission. Objective - Vital Signs Vital signs: Vital Signs Temp 98.2 F 12/05/17 14:14 Pulse 87 12/05/17 14:14 Resp 19 12/05/17 14:14 BP 152/78 12/05/17 14:14 Pulse Ox 97 12/05/17 14:14 Intake & Output 12/05/17 12/05/17 12/06/17 06:59 18:59 06:59 Intake Total 1400 Balance 1400 Intake: Oral 1400 Other: # Voids 1 3 - Exam Physical examination: PHYSICAL EXAMINATION: Patient is resting comfortably in bed. VITAL SIGNS: Blood pressure is [152/78]. Heart rate is [87]. Respiration is [19] . Temperature is [98.2]. HEENT: Head is atraumatic, neck is supple, there were no carotid bruits. CHEST: Lungs are clear to auscultation and percussion. CARDIAC: S1, S2 normal rate and rhythm. There is no murmur. ABDOMEN: Soft and nontender. Bowel sounds are present. EXTREMITIES: There is no pedal edema. Peripheral pulses are present. Neurological examination: Patient's neurological examination is unchanged from yesterday. Her optic neuritis in the right eye is stable. - Labs CBC & Chem 7: 12/06/17 06:09 12/06/17 06:09 Labs: Abnormal Lab Results - Last 24 Hours (Table) 12/04/17 12/05/17 12/05/17 Range/Units 21:31 06:43 06:59 Lymphocytes # 0.4 L (1.0-4.8) k/uL Chloride (98-107) mmol/L Glucose (74-99) mg/dL POC Glucose (mg/dL) 153 H 117 H (75-99) mg/dL 12/05/17 12/05/17 12/05/17 Range/Units 06:59 11:29 17:13 Lymphocytes # (1.0-4.8) k/uL Chloride 109 H (98-107) mmol/L Glucose 124 H (74-99) mg/dL POC Glucose (mg/dL) 103 H 129 H (75-99) mg/dL Assessment and Plan (1) Cephalgia Current Visit: Yes Status: Acute Code(s): R51 - HEADACHE SNOMED Code(s): 20158574 (2) Exacerbation of multiple sclerosis Current Visit: Yes Status: Acute Code(s): G35 - MULTIPLE SCLEROSIS SNOMED Code(s): 232091777 (3) Acute bronchitis Current Visit: No Status: Acute Code(s): J20.9 - ACUTE BRONCHITIS, UNSPECIFIED SNOMED Code(s): 01102567 (4) Adrenal insufficiency Current Visit: No Status: Acute Code(s): E27.40 - UNSPECIFIED ADRENOCORTICAL INSUFFICIENCY SNOMED Code(s): 494655836 Plan: This patient is a 52-year-old female with history of multiple sclerosis. She is admitted to Hospital with symptoms of paresthesias and right-sided headache pain. Patient has been having numbness involving her right arm and face. We have recommended patient to begin on treatment for acute MS exacerbation with IV Solu-Medrol. She is currently on Solu-Medrol 250 mg IV piggyback every 6 hours. She should be maintained on this course of therapy for 3 days. We have recommended consultation with ophthalmology and Dr. Chandler for evaluation of her optic neuritis history. We would also recommend ENT consultation for evaluation of sphenoid sinusitis in this patient with right-sided cephalgia Headache. Patient should be restarted on her about she'll for long-term management of her multiple sclerosis. We will treat her for 3 days with IV Solu -Medrol with slow tapering doses of prednisone at the time of discharge.the patient will complete 3 full days of IV Solu-Medrol tomorrow. She may be considered for discharge home tomorrow. She is to follow-up with her neuro- pharmacy informatics manager Dr. White for further evaluation and treatment of her right eye optic neuritis. She should follow-up with her neurologist soon after discharge for further management of her multiple sclerosis. Her overall prognosis at this time remains guarded.
--- NOTE | 2017-12-08 11:57 | P.PN ---
Subjective Progress Note Date: 12/05/17 Principal diagnosis: multiple sclerosis - acute exacerbation Mr. Weaver is a 52 y/o female with a past medical history of multiple sclerosis admitted for acute exacerbation. Patient is currently on IV steroids. Patient denies having any chest pain palpitations. No fever chills or rigors. The patient is lying in bed comfortably appears to be in no acute distress. Patient denies having any chest pain palpitations. No fever chills or rigors.Patient states her vision is better and improved compared to yesterday Objective - Vital Signs Vital signs: Vital Signs Temp 98.2 F 12/05/17 14:14 Pulse 87 12/05/17 14:14 Resp 19 12/05/17 14:14 BP 152/78 12/05/17 14:14 Pulse Ox 97 12/05/17 14:14 Intake & Output 12/04/17 12/05/17 12/05/17 18:59 06:59 18:59 Intake Total 300 1400 Balance 300 1400 Intake: Oral 300 1400 Other: # Voids 2 1 3 - Exam General examination-alert oriented no acute distress HEENT-conjunctiva normal and oral mucosa moist Neck no JVD or thyromegaly Cardiovascular S1-S2 heard Respiratory bilateral breath sounds diminished in the lung bases GI-abdomen soft nontender 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 - Labs CBC & Chem 7: 12/06/17 06:09 12/06/17 06:09 Labs: Abnormal Lab Results - Last 24 Hours (Table) 12/04/17 12/05/17 12/05/17 Range/Units 21:31 06:43 06:59 Lymphocytes # 0.4 L (1.0-4.8) k/uL Chloride (98-107) mmol/L Glucose (74-99) mg/dL POC Glucose (mg/dL) 153 H 117 H (75-99) mg/dL 12/05/17 12/05/17 12/05/17 Range/Units 06:59 11:29 17:13 Lymphocytes # (1.0-4.8) k/uL Chloride 109 H (98-107) mmol/L Glucose 124 H (74-99) mg/dL POC Glucose (mg/dL) 103 H 129 H (75-99) mg/dL Assessment and Plan Assessment: ASSESSMENT Acute multiple sclerosis exacerbation with headache and diminished vision Asthma /COPD History of fibromyalgia Hyperglycemia secondary to steroids Acute on chronic pain syndrome GERD History of degenerative joint disease Sleep apnea History of supraventricular tachycardia History of optic neuritis History of migraine headaches History of anxiety depression Medical marijuana Plan: Patient to be continued on high-dose IV steroids as per neurology recommendations. Ophthalmology has evaluated the patient recommended continuation of IV steroids. MRI as outpatient. Further recommendations depending on the progress of the patient.
--- NOTE | 2017-12-08 12:03 | P.DS ---
Providers Date of admission: 12/01/17 15:05 Expected date of discharge: 12/06/17 Attending physician: Robert Cooper Consults: 12/01/17 15:06 Consult Physician Routine Consulting Provider: Katrin Resendiz Consult Reason/Comments: MS exacerbation Do you want consulting provider notified?: Yes 12/01/17 17:50 Consult Physician Routine Consulting Provider: Pacheco Thacker Consult Reason/Comments: Known to patient Do you want consulting provider notified?: Yes 12/03/17 14:37 Consult Physician Routine Consulting Provider: Emilee Chandler Consult Reason/Comments: optic neuritis Do you want consulting provider notified?: Yes Primary care physician: [facility] Hospital Course: Ms. Reynaga 52-year-old female with a past medical history of multiple sclerosis, severe persistent bronchial asthma, optic neuritis, postural orthostaticll is a tachycardia syndrome, GERD, fibromyalgia, chronic back pain, obstructive sleep apnea with intolerance to CPAP, adrenal insufficiency, migraine headaches, hypertension, status post hypoglossal nerve stimulator implantation coming into the emergency department with a chief complaint of headaches and decreased vision for the past 3 weeks. Patient had unilateral headache on the right side of the head with right-sided facial numbness and tingling of her right arm. This was associated with nausea and light sensitivity. Patient had a CT showing no acute intracranial hemorrhage or mass- effect and stable hyperdense material within the sphenoid sinus which was unchanged from the previous CAT scan of the brain from June 2017. During the hospital stay the patient was given high IV steroids. Neurology and ophthalmology followed the patient is grossly. Patient responded to the IV steroids and showed improvement in her headaches and vision. She has been cleared by neurology to be discharged home on a tapering dose of steroid. Patient's vitals and physical exam within normal limits at the time of discharge. General examination-alert oriented no acute distress HEENT-conjunctiva normal and oral mucosa moist Neck no JVD or thyromegaly Cardiovascular S1-S2 heard Respiratory bilateral breath sounds diminished in the lung bases GI-abdomen soft nontender [employer] diffusely weak DISCHARGE DIAGNOSIS Acute multiple sclerosis exacerbation with headache and diminished vision Asthma /COPD History of fibromyalgia Hyperglycemia secondary to steroids Acute on chronic pain syndrome GERD History of degenerative joint disease Sleep apnea History of supraventricular tachycardia History of optic neuritis History of migraine headaches History of anxiety depression Medical marijuana Patient is being discharged home in a stable condition. She is advised to take a tapering dose of steroids. Patient states that she dated in the past and knows how to take them. She is advised to follow-up with neurology within 1 weeks of type. More than 30 minutes spent was a discharge with the patient. Patient Condition at Discharge: Stable Plan - Discharge Summary Discharge Rx Participant: Yes New Discharge Prescriptions: New predniSONE See Taper PO DIRECTED #120 tab Continue Montelukast [Singulair] 10 mg PO HS Fluticasone/Vilanterol [Breo Ellipta 200-25 Mcg INH] 1 puff INHALATION RT- DAILY Promethaz-Cod 6.25-10 mg/5 ml [Phenergan with Codeine] 5 ml PO Q4-6H PRN PRN Reason: Cough Mometasone Inhalr 220 Mcg/Puff [Asmanex] 2 puff INHALATION RT-DAILY DULoxetine HCL [Cymbalta] 60 mg PO QAM Fexofenadine/Pseudoephedrine [Renetta-D 24 Hour Tablet] 1 tab PO DAILY Esomeprazole Magnesium [NexIUM] 40 mg PO HS Fluticasone Nasal Howell [Flonase Nasal Howell] 2 spray EA NOSTRIL BID Prochlorperazine [Compazine] 10 mg PO Q8H PRN PRN Reason: Nausea Xeomin 1 injection IM Q90D ALPRAZolam [Xanax] 0.5 mg PO TID PRN PRN Reason: Anxiety traZODone HCL 150 mg PO HS Cholestyramine (with Sugar) [Questran Packet] 4 gm PO BID Hydrocortisone [Cortef] 2.5 mg PO DAILY Teriflunomide [Aubagio] 7 mg PO DAILY Cholecalciferol (Vitamin D3) [Vitamin D3] 12,000 unit PO DAILY Topiramate 50 mg PO HS Fluconazole [Diflucan] 100 mg PO BID PRN PRN Reason: ANTIBIOTICS Discharge Medication List Montelukast [Singulair] 10 mg PO HS 07/14/13 [History] Fluticasone/Vilanterol [Breo Ellipta 200-25 Mcg INH] 1 puff INHALATION RT-DAILY 11/19/15 [History] Promethaz-Cod 6.25-10 mg/5 ml [Phenergan with Codeine] 5 ml PO Q4-6H PRN [History] Mometasone Inhalr 220 Mcg/Puff [Asmanex] 2 puff INHALATION RT-DAILY 03/07/16 [ History] DULoxetine HCL [Cymbalta] 60 mg PO QAM 11/13/16 [History] Esomeprazole Magnesium [NexIUM] 40 mg PO HS 01/05/17 [History] Fexofenadine/Pseudoephedrine [Renetta-D 24 Hour Tablet] 1 tab PO DAILY 01/05/17 [History] Fluticasone Nasal Howell [Flonase Nasal Howell] 2 spray EA NOSTRIL BID 01/05/17 [ History] Prochlorperazine [Compazine] 10 mg PO Q8H PRN 01/05/17 [History] ALPRAZolam [Xanax] 0.5 mg PO TID PRN 12/01/17 [History] Cholecalciferol (Vitamin D3) [Vitamin D3] 12,000 unit PO DAILY 12/01/17 [History ] Cholestyramine (with Sugar) [Questran Packet] 4 gm PO BID 12/01/17 [History] Fluconazole [Diflucan] 100 mg PO BID PRN 12/01/17 [History] Hydrocortisone [Cortef] 2.5 mg PO DAILY 12/01/17 [History] Teriflunomide [Aubagio] 7 mg PO DAILY 12/01/17 [History] Topiramate 50 mg PO HS 12/01/17 [History] Xeomin 1 injection IM Q90D 12/01/17 [History] traZODone HCL 150 mg PO HS 12/01/17 [History] predniSONE See Taper PO DIRECTED #120 tab 12/06/17 [Rx] Follow up Appointment(s)/Referral(s): Seferino Dougherty DO [Primary Care Provider] - 1-2 days Activity/Diet/Wound Care/Special Instructions: Low resonance MRI will be at [facility] on Thursday12/19/2017. Arrive at 7:15am scan at 7:45am. Paperwork was faxed to [phone] Discharge Disposition: HOME SELF-CARE
== END 2017-12-06 12:27 | disposition home or self-care (01) | DRG 59 ==
LOC: EC 11:47 → 4MS4W 15:05 → 6PED 12-03 13:41
PROVIDERS: ADMIT Hospitalist; ATTEND Hospitalist
DX: G35 Multiple sclerosis (principal); E27.40 Unspecified adrenocortical insufficiency; H46.9 Unspecified optic neuritis; I47.1 Supraventricular tachycardia; J44.0 Chronic obstructive pulmonary disease with (acute) lower respiratory infection; G47.33 Obstructive sleep apnea (adult) (pediatric); G89.4 Chronic pain syndrome; H54.7 Unspecified visual loss; I10 Essential (primary) hypertension; J20.9 Acute bronchitis, unspecified; J32.3 Chronic sphenoidal sinusitis; K21.9 Gastro-esophageal reflux disease without esophagitis; K75.4 Autoimmune hepatitis; M19.90 Unspecified osteoarthritis, unspecified site; M79.7 Fibromyalgia; M54.9 Dorsalgia, unspecified; T38.0X5A Adverse effect of glucocorticoids and synthetic analogues, initial encounter; R73.9 Hyperglycemia, unspecified; Z79.899 Other long term (current) drug therapy; Z82.49 Family history of ischemic heart disease and other diseases of the circulatory system; Z82.5 Family history of asthma and other chronic lower respiratory diseases; Z96.643 Presence of artificial hip joint, bilateral; Z96.651 Presence of right artificial knee joint; J45.50 Severe persistent asthma, uncomplicated; Z90.49 Acquired absence of other specified parts of digestive tract; I49.8 Other specified cardiac arrhythmias; Z88.1 Allergy status to other antibiotic agents; Z91.040 Latex allergy status; Z91.011 Allergy to milk products; Z88.0 Allergy status to penicillin; Z88.2 Allergy status to sulfonamides; Z88.8 Allergy status to other drugs, medicaments and biological substances; Z91.018 Allergy to other foods; I77.1 Stricture of artery; F41.9 Anxiety disorder, unspecified; F32.9 Major depressive disorder, single episode, unspecified
CPT/HCPCS: 36415; 36591; 70450; 71046; 80048; 80053; 80061; 82306; 82533; 82550; 82553; 82607; 83036; 83540; 83735; 84439; 84443; 84481; 84484; 85025; 85610; 85730; 93005; 94640; 96374; 96375; 99285

== ENCOUNTER → 2018-01-18 | Outpatient (CLI) | payer MEDICARE ==
[2018-01-18 10:45] LABS: Basophils % (A) 0 %; Eosinophils # (A) 0.1 k/uL (0-0.7); Eosinophils % (A) 2 %; HCT 43.6 % (34.0-46.0); HGB 14.2 gm/dL (11.4-16.0); Hypochromasia Slight; Lymphocytes # (A) 1.4 k/uL (1.0-4.8); Lymphocytes % (A) 32 %; MCH 31.5 pg (25.0-35.0); MCHC 32.6 g/dL (31.0-37.0); Mean Platelet Volume 6.9; Monocytes # (A) 0.3 k/uL (0-1.0); Monocytes % (A) 8 %; Neutrophils # (A) 2.5 k/uL (1.3-7.7); Neutrophils % (A) 56 %; Platelet Count 281 k/uL (150-450); RBC 4.52 m/uL (3.80-5.40); RDW 14.7 % (11.5-15.5); WBC 4.4 k/uL (3.8-10.6)
[2018-01-18 10:51] LABS: MCV 96.4 fL (80.0-100.0)
[2018-01-18 16:10] LABS: ALT 19 U/L (8-44); AST 19 U/L (13-35)
== END ==
LOC: LABWHC1 09:27
PROVIDERS: ATTEND Psychiatry & Neurology Neurology
DX: G35 Multiple sclerosis (principal)
CPT/HCPCS: 36415; 84450; 84460; 85025

== ENCOUNTER → 2018-02-01 | Outpatient (CLI) | payer MEDICARE ==
[~2018-02-01] MED LIST changes: +COSYNTROPIN 0.25 MG VIAL IVP ONE; -HYDROCORTISONE SUCCINATE 100 MG/2 ML VIAL IV ONE; -LACTATED RINGERS 1,000 ML IV SCH; -LIDOCAINE 1% 20 ML VIAL (10MG/ML) FOR IV START INTRADERMA PRN; -MIDAZOLAM 2 MG/2 ML VIAL IV PRN; +SODIUM CHLORIDE 0.9% 500 ML 500 ML in EMPTY BAG 1 BAG IV PRN; -ceFAZolin IN SWFI 2 GM/20 ML SYRINGE IVP ONE
[2018-02-01 10:46] VITALS: BP 114/74; PULSE 87; RESP 22; TEMP 97.8
== END | disposition home or self-care (01) ==
LOC: PROCWHC3 10:30
PROVIDERS: ATTEND Internal Medicine Endocrinology, Diabetes & Metabolism
DX: E27.3 Drug-induced adrenocortical insufficiency (principal)
CPT/HCPCS: 82533; 82024; 82306; 96374; 36591; J0834; J1642

== ENCOUNTER 2018-02-05 10:58 | Day surgery (SDC) | payer MEDICARE ==
[2018-02-04 08:46] VITALS: BMI 30.4
[~2018-02-05 10:58] MED LIST changes: +ALBUTEROL NEB (CONC) 2.5 MG/0.5 ML INHALATION ONE; +ATROPINE SULFATE 0.4 MG/ML 1 ML VIAL IM ONE; -COSYNTROPIN 0.25 MG VIAL IVP ONE; +LACTATED RINGERS 1,000 ML IV ONE; +LACTATED RINGERS 1,000 ML IV SCH; +LIDOCAINE 1% 20 ML VIAL (10MG/ML) FOR IV START INTRADERMA PRN; +LIDOCAINE 2% (PF) 20 MG/ML 2 ML AMP INHALATION ONE; +LIDOCAINE VISCOUS 2% 15 ML CUP TOPICAL ONE; +MIDAZOLAM (PF) 2 MG/2 ML VIAL IV PRN; -SODIUM CHLORIDE 0.9% 500 ML 500 ML in EMPTY BAG 1 BAG IV PRN
[2018-02-05 11:27] VITALS: TEMP 97.8
[2018-02-05] MEDS ORDERED: MIDAZOLAM 2 MG/2 ML VIAL ONE (12:01)
[2018-02-05] MEDS ORDERED: fentaNYL (PF) 50 MCG/ML 2 ML AMP ONE (12:01)
[2018-02-05] MEDS ORDERED: GLYCOPYRROLATE 0.2 MG/ML 2 ML VIAL ONE (12:01)
[2018-02-05] MEDS ORDERED: KETAMINE 10 MG/ML 20 ML VIAL ONE (12:01)
[2018-02-05] MEDS ORDERED: PROPOFOL 10 MG/ML 20 ML VIAL IV ONE (12:01)
[2018-02-05 12:27] VITALS: BP 99/62; PULSE 108; RESP 16
--- NOTE | 2018-02-05 13:10 | PCN ---
PROCEDURE NOTE PROCEDURE: Bronchoscopy and BAL right middle lobe. PREOPERATIVE DIAGNOSIS: Severe asthma, bronchitis, retained secretions. POSTOPERATIVE DIAGNOSIS: Severe asthma, bronchitis, retained secretions. Anitha Puckett CRNA provided unconscious sedation/ general anesthesia. There was informed consent. There was universal timeout. The patient's procedure was done in room #3. The procedure was a bronchoscopy and BAL right middle lobe. After the patient was adequately sedated and being fully monitored, the bronchoscope was inserted through the right nostril. It passed through the right nasopharynx into the oropharynx. The hypopharynx was identified and topicalized. The hypopharyngeal structures including anterior commissure, true cords, false cords, arytenoids, piriform sinuses, right and left vallecula and epiglottis all appeared normal. After topicalization, the bronchoscope was pushed through the glottic opening into the trachea. Trachea appeared normal. There were some thick secretions noted in the distal trachea. The tracheal pastor was sharp. The right and left mainstem were topicalized. After topicalization, the right upper lobe and its 3 segments. right middle lobe and its 2 segments, right lower lobe and its 5 segments, the left upper lobe proper and its 2 segments, the lingula and its 2 segments in the left lower lobe and its 4 segments all had similar findings of moderate bronchitis. There is bronchial mucosal erythema and hyperemia. The mucosa was friable. They bled easily. There were thick secretions noted throughout. The bronchoscope was wedged into the right middle lobe. The BAL took place. The patient tolerated the procedure well. There was no dominant mass or tumor. After the patient's airways were cleansed with saline, the bronchoscope was withdrawn. There was no major complication or issue. Patient tolerated the procedure well. The patient will be moved over to Room 5 in the postop area and recovered. MMODL / IJN: [id number] /
[2018-02-05 20:35] LABS: Appearance,BF Clear; Color,BF Colorless; Nucleated Cells, Body Fluid 23 /uL; RBC, Body Fluid 50 /uL
[2018-02-05 20:36] LABS: Mononuclear WBC,Body Fluid 4 %; Polynuclear WBC,Body Fluid 95 %
== END 2018-02-05 13:20 | disposition home or self-care (01) ==
LOC: ORWHC2ENDO 10:58
PROVIDERS: ATTEND Internal Medicine Critical Care Medicine
DX: J42 Unspecified chronic bronchitis (principal); J45.909 Unspecified asthma, uncomplicated; K75.4 Autoimmune hepatitis; E03.9 Hypothyroidism, unspecified; I47.1 Supraventricular tachycardia; I95.1 Orthostatic hypotension; G47.33 Obstructive sleep apnea (adult) (pediatric); M79.7 Fibromyalgia; E27.40 Unspecified adrenocortical insufficiency; K21.9 Gastro-esophageal reflux disease without esophagitis; G35 Multiple sclerosis; H46.9 Unspecified optic neuritis; Z79.51 Long term (current) use of inhaled steroids; Z79.899 Other long term (current) drug therapy; Z88.1 Allergy status to other antibiotic agents; Z91.040 Latex allergy status; Z88.0 Allergy status to penicillin; Z88.2 Allergy status to sulfonamides; Z88.8 Allergy status to other drugs, medicaments and biological substances; Z91.018 Allergy to other foods
CPT/HCPCS: 94640; 87798 ×3; 87496; 87498; 87529; 88108; 88305; 89050; 87252; 87502; 87634; 87070; 87205; 87116; 87102; 87206; 31624; J2250; J0461; J3010; J2704; J2001

== ENCOUNTER 2018-02-26 02:09 | Inpatient (IN) | payer MEDICARE ==
[2018-02-26] MEDS ORDERED: IPRATROPIUM-ALBUTEROL 3 ML NEB INHALATION STA (02:32)
[2018-02-26] MEDS ORDERED: methylPREDNISolone SOD SUCCI 125 MG/2 ML VIAL IV STA (02:32)
[2018-02-26] MEDS ORDERED: SODIUM CHLORIDE 0.9% 1,000 ML IV STA (02:32)
--- NOTE | 2018-02-26 02:47 | ED ---
SOB HPI - General Chief Complaint: Shortness of Breath Stated Complaint: Asthma Time Seen by Provider: 02/26/18 02:21 Source: patient Mode of arrival: ambulatory Limitations: no limitations - History of Present Illness Initial Comments: Patient is a 52-year-old female with a history of MS, COPD and asthma. Patient follows with Dr. Saunders for pulmonology. Patient has had a persistent cough, she had a bronchoscopy in January and followed up with Dr. Saunders earlier this week. At that time she was prescribed oral antibiotics and given an IM shot of steroids. She was advised by Dr. Saunders that if her symptoms didn't improve in the next 48 hours she should come to the ER for evaluation. Patient reports that she chose to come this morning because she has not improved, she has persistent cough, she reports that when she is coughing she has episodes of feeling very warm and sweaty. She denies any fevers. She reports she occasionally has chills. She denies any nausea vomiting or chest pain. Patient reports that due to her MS she doesn't have the strength to cough anything up, therefore cough has been nonproductive. - Related Data Home Medications Medication Instructions Recorded Confirmed Montelukast [Singulair] 10 mg PO HS 07/14/13 02/26/18 Fluticasone/Vilanterol [Breo 1 puff INHALATION RT-DAILY 11/19/15 02/26/18 Ellipta 200-25 Mcg INH] Promethaz-Cod 6.25-10 mg/5 ml 5 ml PO Q4-6H PRN 03/06/16 02/26/18 [Phenergan with Codeine] Mometasone Inhalr 220 Mcg/Puff 2 puff INHALATION RT-DAILY 03/07/16 02/26/18 [Asmanex] DULoxetine HCL [Cymbalta] 60 mg PO QAM 11/13/16 02/26/18 Esomeprazole Magnesium [NexIUM] 40 mg PO HS 01/05/17 02/26/18 Fluticasone Nasal [place] [Flonase 2 spray EA NOSTRIL BID 01/05/17 02/26/18 Nasal [place]] Prochlorperazine [Compazine] 10 mg PO Q8H PRN 01/05/17 02/26/18 ALPRAZolam [Xanax] 0.5 mg PO TID PRN 12/01/17 02/26/18 Cholecalciferol (Vitamin D3) 12,000 unit PO DAILY 12/01/17 02/26/18 [Vitamin D3] Cholestyramine (with Sugar) 4 gm PO BID 12/01/17 02/26/18 [Questran Packet] Fluconazole [Diflucan] 200 mg PO DAILY PRN 12/01/17 02/26/18 Topiramate 50 mg PO HS 12/01/17 02/26/18 Xeomin 1 injection IM Q90D 12/01/17 02/26/18 traZODone HCL 150 mg PO HS 12/01/17 02/26/18 Hydrocortisone [Cortef] 20 mg PO DAILY@1400 02/26/18 02/26/18 Hydrocortisone [Cortef] 40 mg PO DAILY 02/26/18 02/26/18 Allergies Allergy/AdvReac Type Severity Reaction Status Date / Time latex Allergy Severe Anaphylaxis Verified 02/26/18 07:03 Sulfa (Sulfonamide Allergy Severe Rash/Hives Verified 02/26/18 07:03 Antibiotics) adhesive Allergy Rash/Hives Verified 02/26/18 07:03 alcohol Allergy Rash/Hives Verified 02/26/18 07:03 [From Mastisol Adhesive] amoxicillin Allergy Rash/Hives Verified 02/26/18 07:03 bupropion [From Wellbutrin] Allergy Unknown Verified 02/26/18 07:03 glatiramer (copolymer 1) Allergy Unknown Verified 02/26/18 07:03 [From Copaxone] gum mastic Allergy Rash/Hives Verified 02/26/18 07:03 [From Mastisol Adhesive] interferon beta-1b Allergy Unknown Verified 02/26/18 07:03 [From Betaseron] methyl salicylate Allergy Rash/Hives Verified 02/26/18 07:03 [From Mastisol Adhesive] mold Allergy Unknown Verified 02/26/18 07:03 ragweed pollen Allergy Unknown Verified 02/26/18 07:03 storax Allergy Rash/Hives Verified 02/26/18 07:03 [From Mastisol Adhesive] sulfamethoxazole Allergy Rash/Hives Verified 02/26/18 07:03 [From Bactrim] trimethoprim [From Bactrim] Allergy Rash/Hives Verified 02/26/18 07:03 bupropion HCl AdvReac Severe Rash/Hives Verified 02/26/18 07:03 [From Wellbutrin] gluten AdvReac Severe Nausea & Verified 02/26/18 07:03 Vomiting & Diarrhea interferon beta AdvReac Severe Rash/Hives Verified 02/26/18 07:03 interferon beta-1a AdvReac Severe Rash/Hives Verified 02/26/18 07:03 [From Avonex] lamotrigine [From Lamictal] AdvReac Severe Rash/Hives Verified 02/26/18 07:03 milk AdvReac Severe Nausea & Verified 02/26/18 07:03 Vomiting oxaprozin [From Daypro] AdvReac Severe Rash/Hives Verified 02/26/18 07:03 Penicillins AdvReac Severe Rash/Hives Verified 02/26/18 07:03 azithromycin AdvReac Unknown Rash/Hives, Verified 02/26/18 07:03 RED SKIN, ITCHING doxycycline AdvReac Unknown Rash/Hives Verified 02/26/18 07:03 albumin human AdvReac Rash/Hives Verified 02/26/18 07:03 [From Rebif (with albumin)] dicyclomine [From Bentyl] AdvReac Rash/Hives Verified 02/26/18 07:03 wheat AdvReac Nausea & Verified 02/26/18 07:03 Vomiting & Diarrhea cow's milk Allergy ASTHMA Uncoded 02/26/18 02:17 SYMPTOMS DUST Allergy ASTHMA Uncoded 02/26/18 02:17 SYMPTOMS STERISTRIPS AdvReac Severe BLISTERS Uncoded 02/26/18 02:17 TO SKIN Review of Systems ROS Statement: Those systems with pertinent positive or pertinent negative responses have been documented in the HPI. ROS Other: All systems not noted in ROS Statement are negative. Past Medical History Past Medical History: Asthma, COPD, Fibromyalgia, GERD/Reflux, Hyperlipidemia, Neurologic Disorder, Osteoarthritis (OA), Sleep Apnea/CPAP/BIPAP, Supraventricular Tachycardia (SVT) Additional Past Medical History / Comment(s): Multiple sclerosis, Optic neuritis , Anemia, Migraines, Adrenal insufficiency, Auto immune hepatitis, Avascular necrosis, POTS History of Any Multi-Drug Resistant Organisms: None Reported Past Surgical History: Bowel Resection, Joint Replacement, Orthopedic Surgery Additional Past Surgical History / Comment(s): Sinus surgery, Blepharoplasty jayleen eyes, POWER PORT -IMPLANTABLE PORT-under Left clavicle (2018) , Bowel adhesions, rt knee replacement , 8 INCH BOWEL REMOVED, jayleen total hip replacement. Multiple BRONCHOSCOPY, "Inspire" implant right neck for sleep apnea Past Anesthesia/Blood Transfusion Reactions: Blood Transfusion Reaction Additional Past Anesthesia/Blood Transfusion Reaction / Comment(s): HX OF BLOOD TRANSFUSION : HAS CARD STATING K ANTIBODY AFTER RECEIVING A TRANSFUSION Past Psychological History: Anxiety, Depression Smoking Status: Never smoker Past Drug Use History: Marijuana - Past Family History Mother Family Medical History: Hypertension Father Family Medical History: COPD, Hypertension Additional Family Medical History / Comment(s): Father at the age of 69 yrs from emphysema Brother(s) Additional Family Medical History / Comment(s): Brother-[place] X2 General Exam - General Exam Comments Initial Comments: Physical Exam GENERAL: Patient is well-developed and well-nourished. Patient is nontoxic and well- hydrated and is in no distress. HENT: Normocephalic, Atraumatic. EYES: PERRL, EOMI PULMONARY: Unlabored respirations. No audible rales rhonchi or wheezing was noted. Dry hoarse cough CARDIOVASCULAR: There is a regular rate and rhythm without any murmurs gallops or rubs. ABDOMEN: Soft and nontender with normal bowel sounds. SKIN: Skin is clear with no lesions or rashes and otherwise unremarkable. : Deferred NEUROLOGIC: Patient is alert and oriented x3. Moving all extremities spontaneously MUSCULOSKELETAL: Normal extremities with adequate strength and full range of motion. No lower extremity swelling or edema. No calf tenderness. PSYCHIATRIC: Normal psychiatric evaluation. Limitations: no limitations Limitations: no limitations Course Vital Signs 02/26/18 02/26/18 02/26/18 02:12 02:23 02:27 Temperature 98.3 F Pulse Rate 85 Respiratory 26 H 20 18 Rate Blood Pressure 113/71 O2 Sat by Pulse 98 Oximetry 02/26/18 02/26/18 02/26/18 02:31 02:47 02:52 Temperature Pulse Rate 90 91 Respiratory 18 18 18 Rate Blood Pressure O2 Sat by Pulse Oximetry 02/26/18 02/26/18 02/26/18 03:00 03:30 03:55 Temperature Pulse Rate 79 77 89 Respiratory 16 16 18 Rate Blood Pressure 122/111 O2 Sat by Pulse 98 Oximetry 02/26/18 02/26/18 02/26/18 04:00 05:00 05:06 Temperature Pulse Rate 75 77 64 Respiratory 16 16 16 Rate Blood Pressure 110/77 O2 Sat by Pulse 91 L 93 L Oximetry 02/26/18 06:15 Temperature Pulse Rate 68 Respiratory 16 Rate Blood Pressure 108/81 O2 Sat by Pulse 97 Oximetry Medical Decision Making - Medical Decision Making The patient was seen and evaluated history is obtained from the patient and review of medical record Labs and imaging were ordered DuoNeb was ordered EKG was reviewed, sinus rhythm rate is 82 no chest elevations or depressions, or significant respiratory variation due to the patient's cough. Labs with no significant abnormalities X-ray no evidence of pneumonia Patient had persistent nonproductive dry cough throughout her entire ED visit. At this time I agree with Dr. Lang's plan for admission for further evaluation. Patient care was discussed with Dr. Ha from [facility] as the patient reports she is previously been admitted to this group and prefers this group. accepts the admission with a consult to Dr. Dougherty - Lab Data Result diagrams: 02/26/18 03:48 02/26/18 03:48 Lab Results 02/26/18 02/26/18 02/26/18 Range/Units 02:57 03:48 03:48 WBC 6.1 (3.8-10.6) k/uL RBC 3.89 (3.80-5.40) m/uL Hgb 11.6 (11.4-16.0) gm/dL Hct 37.4 (34.0-46.0) % MCV 96.1 (80.0-100.0) fL MCH 29.9 (25.0-35.0) pg MCHC 31.1 (31.0-37.0) g/dL RDW 14.0 (11.5-15.5) % Plt Count 311 (150-450) k/uL Neutrophils % 62 % Lymphocytes % 27 % Monocytes % 7 % Eosinophils % 2 % Basophils % 0 % Neutrophils # 3.8 (1.3-7.7) k/uL Lymphocytes # 1.6 (1.0-4.8) k/uL Monocytes # 0.4 (0-1.0) k/uL Eosinophils # 0.1 (0-0.7) k/uL Basophils # 0.0 (0-0.2) k/uL Hypochromasia Slight PT (9.0-12.0) sec INR (<1.2) APTT (22.0-30.0) sec Sodium (137-145) mmol/L Potassium (3.5-5.1) mmol/L Chloride (98-107) mmol/L Carbon Dioxide (22-30) mmol/L Anion Gap mmol/L BUN (7-17) mg/dL Creatinine (0.52-1.04) mg/dL Est GFR (CKD-EPI)AfAm (>60 ml/min/1.73 sqM) Est GFR (CKD-EPI)NonAf (>60 ml/min/1.73 sqM) Glucose (74-99) mg/dL Calcium (8.4-10.2) mg/dL Magnesium (1.6-2.3) mg/dL Total Bilirubin (0.2-1.3) mg/dL AST (14-36) U/L ALT (9-52) U/L Alkaline Phosphatase (38-126) U/L Total Creatine Kinase 39 (30-135) U/L CK-MB (CK-2) <0.2 (0.0-2.4) ng/mL CK-MB (CK-2) Rel Index Troponin I <0.012 (0.000-0.034) ng/mL NT-Pro-B Natriuret Pep pg/mL Total Protein (6.3-8.2) g/dL Albumin (3.5-5.0) g/dL Influenza Type A RNA Not Detected (Not Detectd) Influenza Type B (PCR) Not Detected (Not Detectd) 02/26/18 02/26/18 02/26/18 Range/Units 03:48 03:48 03:48 WBC (3.8-10.6) k/uL RBC (3.80-5.40) m/uL Hgb (11.4-16.0) gm/dL Hct (34.0-46.0) % MCV (80.0-100.0) fL MCH (25.0-35.0) pg MCHC (31.0-37.0) g/dL RDW (11.5-15.5) % Plt Count (150-450) k/uL Neutrophils % % Lymphocytes % % Monocytes % % Eosinophils % % Basophils % % Neutrophils # (1.3-7.7) k/uL Lymphocytes # (1.0-4.8) k/uL Monocytes # (0-1.0) k/uL Eosinophils # (0-0.7) k/uL Basophils # (0-0.2) k/uL Hypochromasia PT 20.3 H (9.0-12.0) sec INR 2.1 H (<1.2) APTT >200.0 H* (22.0-30.0) sec Sodium 140 (137-145) mmol/L Potassium 3.0 L (3.5-5.1) mmol/L Chloride 113 H (98-107) mmol/L Carbon Dioxide 21 L (22-30) mmol/L Anion Gap 6 mmol/L BUN 6 L (7-17) mg/dL Creatinine 0.82 (0.52-1.04) mg/dL Est GFR (CKD-EPI)AfAm >90 (>60 ml/min/1.73 sqM) Est GFR (CKD-EPI)NonAf 83 (>60 ml/min/1.73 sqM) Glucose 94 (74-99) mg/dL Calcium 8.0 L (8.4-10.2) mg/dL Magnesium 1.9 (1.6-2.3) mg/dL Total Bilirubin 0.4 (0.2-1.3) mg/dL AST 15 (14-36) U/L ALT 22 (9-52) U/L Alkaline Phosphatase 80 (38-126) U/L Total Creatine Kinase (30-135) U/L CK-MB (CK-2) (0.0-2.4) ng/mL CK-MB (CK-2) Rel Index Troponin I (0.000-0.034) ng/mL NT-Pro-B Natriuret Pep 46 pg/mL Total Protein 6.2 L (6.3-8.2) g/dL Albumin 3.3 L (3.5-5.0) g/dL Influenza Type A RNA (Not Detectd) Influenza Type B (PCR) (Not Detectd) Disposition Clinical Impression: Cough Disposition: ADMITTED IP TO THIS HOSP
--- NOTE | 2018-02-26 03:13 | XR ---
EXAMINATION TYPE: XR chest 2V DATE OF EXAM: 02/26/2018 COMPARISON: February 24, 2018 HISTORY: Short of breath TECHNIQUE: Frontal and lateral views of the chest are obtained. FINDINGS: There is no heart failure nor confluent pneumonic infiltrate. There is right chest wall pa cemaker noted. There are chest leads. There is left central venous catheter with the tip over the rig ht atrium. There is no pleural effusion. Bony thorax is intact. IMPRESSION: No active cardiopulmonary disease. No change.
[2018-02-26] MEDS ORDERED: NALOXONE 0.4 MG/ML 1 ML VIAL IV PRN (03:52)
[2018-02-26 04:01] LABS: Basophils % (A) 0 %; Eosinophils # (A) 0.1 k/uL (0-0.7); Eosinophils % (A) 2 %; HCT 37.4 % (34.0-46.0); HGB 11.6 gm/dL (11.4-16.0); Hypochromasia Slight; Lymphocytes # (A) 1.6 k/uL (1.0-4.8); Lymphocytes % (A) 27 %; MCH 29.9 pg (25.0-35.0); MCHC 31.1 g/dL (31.0-37.0); MCV 96.1 fL (80.0-100.0); Mean Platelet Volume 6.6; Monocytes # (A) 0.4 k/uL (0-1.0); Monocytes % (A) 7 %; Neutrophils # (A) 3.8 k/uL (1.3-7.7); Neutrophils % (A) 62 %; Platelet Count 311 k/uL (150-450); RBC 3.89 m/uL (3.80-5.40); WBC 6.1 k/uL (3.8-10.6)
[2018-02-26 04:11] LABS: ALT 22 U/L (9-52); AST 15 U/L (14-36); Albumin 3.3 g/dL (3.5-5.0); Alkaline Phosphatase 80 U/L (38-126); Anion Gap 6 mmol/L; Blood Urea Nitrogen 6 mg/dL (7-17); Carbon Dioxide 21 mmol/L (22-30); Chloride 113 mmol/L (98-107); Glucose 94 mg/dL (74-99); Magnesium 1.9 mg/dL (1.6-2.3); Sodium 140 mmol/L (137-145); Total Bilirubin 0.4 mg/dL (0.2-1.3); Total Protein 6.2 g/dL (6.3-8.2)
[2018-02-26 04:25] LABS: Creatine Kinase 39 U/L (30-135)
[2018-02-26 04:32] LABS: INR 2.1 (<1.2); Prothrombin Time 20.3 sec (9.0-12.0)
[2018-02-26 04:38] LABS: Creatine Kinase MB <0.2 ng/mL (0.0-2.4); Troponin I <0.012 ng/mL (0.000-0.034)
[2018-02-26 05:17] LABS: Partial Thromboplastin Time >200.0 sec (22.0-30.0)
--- NOTE | 2018-02-26 06:42 | P.HPIM ---
History of Present Illness H&P Date: 02/26/18 The patient is a 52 yo F with a PMH of Asthma, MS, ALEXA, and adrenal insufficiency who presented to the ED due to gradually worsening SOB w/ non- productive cough of 2 months duration. The patient notes that she was following with Dr Dougherty and had undergo a bronch 3 weeks ago though with minimal improvements in her symptoms. She notes that due to her MS, she is unable to generate a strong cough and thereby undergoes bronchs multiple times throughout the year. As per the patient, she was last seen by Dr Dougherty and was given a steroid taper and was advised to come to the ED if her symptoms didn't improve. Due to her persistent symptoms, she decided to come to the ED. She endorsed ocassional chills at home with pleuritic chest pain but denied any headaches, nausea, vomiting, dizziness, weakness, numbness, tingling, or dysuria. She also endorsed recently traveling to [place] via car to visit a friend but denied any LE edema or calf pain. In the ED, the patient underwent a comprehensive w/u with WBC 6.1, Trop neg, BNP 46, Influenza negative, and Hgb 11.6. Review of Systems Pertinent positives and negatives as discussed in HPI, a complete review of systems was performed and all other systems are negative. Past Medical History Past Medical History: Asthma, COPD, Fibromyalgia, GERD/Reflux, Hyperlipidemia, Neurologic Disorder, Osteoarthritis (OA), Sleep Apnea/CPAP/BIPAP, Supraventricular Tachycardia (SVT) Additional Past Medical History / Comment(s): Multiple sclerosis, Optic neuritis , Anemia, Migraines, Adrenal insufficiency, Auto immune hepatitis, Avascular necrosis, POTS History of Any Multi-Drug Resistant Organisms: None Reported Past Surgical History: Bowel Resection, Joint Replacement, Orthopedic Surgery Additional Past Surgical History / Comment(s): Sinus surgery, Blepharoplasty jayleen eyes, POWER PORT -IMPLANTABLE PORT-under Left clavicle (2018) , Bowel adhesions, rt knee replacement , 8 INCH BOWEL REMOVED, jayleen total hip replacement. Multiple BRONCHOSCOPY, "Inspire" implant right neck for sleep apnea Past Anesthesia/Blood Transfusion Reactions: Blood Transfusion Reaction Additional Past Anesthesia/Blood Transfusion Reaction / Comment(s): HX OF BLOOD TRANSFUSION : HAS CARD STATING K ANTIBODY AFTER RECEIVING A TRANSFUSION Past Psychological History: Anxiety, Depression Smoking Status: Never smoker Past Drug Use History: Marijuana - Past Family History Mother Family Medical History: Hypertension Father Family Medical History: COPD, Hypertension Additional Family Medical History / Comment(s): Father at the age of 69 yrs from emphysema Brother(s) Additional Family Medical History / Comment(s): Brother-[place] X2 Medications and Allergies Home Medications Medication Instructions Recorded Confirmed Type Montelukast [Singulair] 10 mg PO HS 07/14/13 02/05/18 History Fluticasone/Vilanterol [Breo 1 puff INHALATION RT-DAILY 11/19/15 02/05/18 History Ellipta 200-25 Mcg INH] Promethaz-Cod 6.25-10 mg/5 ml 5 ml PO Q4-6H PRN 03/06/16 02/05/18 History [Phenergan with Codeine] Mometasone Inhalr 220 Mcg/Puff 2 puff INHALATION HS 03/07/16 02/05/18 History [Asmanex] DULoxetine HCL [Cymbalta] 60 mg PO QAM 11/13/16 02/05/18 History Esomeprazole Magnesium [NexIUM] 40 mg PO HS 01/05/17 02/05/18 History Fexofenadine/Pseudoephedrine 1 tab PO DAILY 01/05/17 02/05/18 History [Renetta-D 24 Hour Tablet] Fluticasone Nasal [place] [Flonase 2 spray EA NOSTRIL BID 01/05/17 02/05/18 History Nasal [place]] Prochlorperazine [Compazine] 10 mg PO Q8H PRN 01/05/17 02/04/18 History ALPRAZolam [Xanax] 0.5 mg PO TID PRN 12/01/17 02/05/18 History Cholecalciferol (Vitamin D3) 12,000 unit PO DAILY 12/01/17 02/05/18 History [Vitamin D3] Cholestyramine (with Sugar) 4 gm PO BID 12/01/17 02/05/18 History [Questran Packet] Fluconazole [Diflucan] 100 mg PO BID PRN 12/01/17 02/05/18 History Hydrocortisone [Cortef] 2.5 mg PO DAILY 12/01/17 02/05/18 History Topiramate 50 mg PO HS 12/01/17 02/05/18 History Xeomin 1 injection IM Q90D 12/01/17 02/05/18 History traZODone HCL 150 mg PO HS 12/01/17 02/05/18 History Benzonatate [Tessalon Perles] 200 mg PO TID PRN 02/04/18 02/05/18 History Allergies Allergy/AdvReac Type Severity Reaction Status Date / Time latex Allergy Severe Anaphylaxis Verified 02/26/18 02:17 Sulfa (Sulfonamide Allergy Severe Rash/Hives Verified 02/26/18 02:17 Antibiotics) adhesive Allergy Rash/Hives Verified 02/26/18 02:17 alcohol Allergy Rash/Hives Verified 02/26/18 02:17 [From Mastisol Adhesive] amoxicillin Allergy Rash/Hives Verified 02/26/18 02:17 glatiramer (copolymer 1) Allergy Unknown Verified 02/26/18 02:17 [From Copaxone] gum mastic Allergy Rash/Hives Verified 02/26/18 02:17 [From Mastisol Adhesive] interferon beta-1b Allergy Unknown Verified 02/26/18 02:17 [From Betaseron] methyl salicylate Allergy Rash/Hives Verified 02/26/18 02:17 [From Mastisol Adhesive] mold Allergy Unknown Verified 02/26/18 02:17 ragweed pollen Allergy Unknown Verified 02/26/18 02:17 storax Allergy Rash/Hives Verified 02/26/18 02:17 [From Mastisol Adhesive] sulfamethoxazole Allergy Rash/Hives Verified 02/26/18 02:17 [From Bactrim] trimethoprim [From Bactrim] Allergy Rash/Hives Verified 02/26/18 02:17 bupropion HCl AdvReac Severe Rash/Hives Verified 02/26/18 02:17 [From Wellbutrin] gluten AdvReac Severe Nausea & Verified 02/26/18 02:17 Vomiting & Diarrhea interferon beta AdvReac Severe Rash/Hives Verified 02/26/18 02:17 interferon beta-1a AdvReac Severe Rash/Hives Verified 02/26/18 02:17 [From Avonex] lamotrigine [From Lamictal] AdvReac Severe Rash/Hives Verified 02/26/18 02:17 milk AdvReac Severe Nausea & Verified 02/26/18 02:17 Vomiting oxaprozin [From Daypro] AdvReac Severe Rash/Hives Verified 02/26/18 02:17 Penicillins AdvReac Severe Rash/Hives Verified 02/26/18 02:17 azithromycin AdvReac Unknown Rash/Hives, Verified 02/26/18 02:17 RED SKIN, ITCHING doxycycline AdvReac Unknown Rash/Hives Verified 02/26/18 02:17 albumin human AdvReac Rash/Hives Verified 02/26/18 02:17 [From Rebif (with albumin)] dicyclomine [From Bentyl] AdvReac Rash/Hives Verified 02/26/18 02:17 wheat AdvReac Nausea & Verified 02/26/18 02:17 Vomiting & Diarrhea cow's milk Allergy ASTHMA Uncoded 02/26/18 02:17 SYMPTOMS DUST Allergy ASTHMA Uncoded 02/26/18 02:17 SYMPTOMS STERISTRIPS AdvReac Severe BLISTERS Uncoded 02/26/18 02:17 TO SKIN Physical Exam Vitals: Vital Signs Temp Pulse Resp BP Pulse Ox 02/26/18 05:06 64 16 110/77 02/26/18 05:00 77 16 122/111 93 L 02/26/18 04:30 80 16 122/111 92 L 02/26/18 04:00 75 16 122/111 91 L 02/26/18 03:55 89 18 122/111 98 02/26/18 03:30 77 16 02/26/18 03:00 79 16 02/26/18 02:52 91 18 02/26/18 02:47 90 18 02/26/18 02:31 18 02/26/18 02:27 18 02/26/18 02:23 20 02/26/18 02:12 98.3 F 85 26 H 113/71 98 Intake and Output 02/25/18 02/25/18 02/26/18 14:59 22:59 06:59 Other: Weight 92.986 kg General: [non toxic], [no distress], [appears at stated age], [normal weight] Derm: [no unusual rashes/lesions] [no unusual ecchymoses], [warm], [dry] Head: [atraumatic], [normocephalic], [symmetric] Eyes: [EOMI], [no lid lag], [anicteric sclera], [pupils equal round reactive to light] ENT: [Nose and ears atraumatic], [no thrush], [no pharyngeal erythema] Neck: [No thyromegaly], [no cervical lymphadenopathy], [trachea midline], [ supple] Mouth: [no lip lesion], [mucus membranes moist] Cardiovascular: [S1S2 reg], [no murmur], [positive posterior tibial pulse bilateral], [no edema], [capillary refill less than 2 seconds] Lungs: [Coarse breath sounds jayleen], [no rales] , [no accessory muscle use] Abdominal: [soft], [ nontender to palpation], [no guarding], [no appreciable organomegaly], [normal bowel sounds] Ext: [no gross muscle atrophy], [muscle strength 5 out of 5 in all 4 extremities grossly], [no contractures], Neuro: [ CN II-XI grossly intact], [light touch intact all 4 extremities], [ finger to nose within normal limits], Psych: [Alert], [oriented], [appropriate affect] Results CBC & Chem 7: 02/26/18 03:48 02/26/18 03:48 Labs: Abnormal Lab Results - Last 24 Hours (Table) 02/26/18 02/26/18 Range/Units 03:48 03:48 PT 20.3 H (9.0-12.0) sec INR 2.1 H (<1.2) APTT >200.0 H* (22.0-30.0) sec Potassium 3.0 L (3.5-5.1) mmol/L Chloride 113 H (98-107) mmol/L Carbon Dioxide 21 L (22-30) mmol/L BUN 6 L (7-17) mg/dL Calcium 8.0 L (8.4-10.2) mg/dL Total Protein 6.2 L (6.3-8.2) g/dL Albumin 3.3 L (3.5-5.0) g/dL Assessment and Plan Plan: Acute asthma exacerbation -C/w Solumedrol with Duonebs -Pulmonary consult -Daily peak flows Hypokalemia -Will replace and repeat Elevated INR and APTT -Likely erroneous value. Will repeat. Multiple sclerosis -Resume home meds after confirmation from pharmacy ALEXA -S/p hypoglossal nerve stimulator Adrenal insufficiency -Resume home meds following confirmation. DVT//GI prophylaxis - IPCDs - No indication for GI prophylaxis The patient is admitted with an anticipated greater than 2 midnight stay for evaluation of acute asthma exacerbation CODE STATUS:Full-code Discussed with: Patient Anticipated discharge date: 03/01/[address]: Home A total of 60 minutes was spent on the care of this complex patient more than 50 % of the time was spent in counseling and care coordination.
[2018-02-26] MEDS ORDERED: PROCHLORPERAZINE 10 MG TAB PO PRN (07:43)
[2018-02-26] MEDS ORDERED: KETOROLAC 30 MG/ML 1 ML VIAL IVP PRN (07:44)
[2018-02-26] MEDS ORDERED: HYDROcodone/APAP 5-325MG 1 EACH TAB PO PRN (07:44)
[2018-02-26 08:27] LABS: INR 0.9 (<1.2); Partial Thromboplastin Time 24.6 sec (22.0-30.0); Prothrombin Time 9.7 sec (9.0-12.0)
[2018-02-26] MEDS: CHOLESTYRAMINE (WITH SUGAR) 4 GM PACKET PO SCH ×2 (09:28→21:13)
[2018-02-26] MEDS: HYDROCORTISONE 20 MG TAB PO SCH ×2 (09:28→15:11)
[2018-02-26] MEDS: CHOLECALCIFEROL 1,000 UNIT TAB PO SCH (09:29)
[2018-02-26] MEDS: FLUTICASONE 50MCG/SPRAY NASAL 16GM EA NOSTRIL SCH ×2 (09:29→21:14)
[2018-02-26] MEDS: DULoxetine HCL 60 MG CAPSULE.DR PO SCH (09:29)
[2018-02-26] MEDS: POTASSIUM CHLORIDE ER 20 MEQ TAB.ER PO SCH ×2 (09:29→11:13)
[2018-02-26] MEDS: IPRATROPIUM-ALBUTEROL 3 ML NEB INHALATION PRN ×4 (09:33→20:22)
[2018-02-26] MEDS: SYMBICORT 160-4.5 MCG INHALER INHALATION SCH ×2 (09:33→20:22)
[2018-02-26] MEDS: FLUTICASONE 110 MCG INHALER INHALATION SCH ×2 (09:34→20:22)
[2018-02-26 09:46] VITALS: BMI 31.1
[2018-02-26] MEDS ORDERED: HYDROmorphone 1 MG/ML 1 ML SYRINGE IVP STA (11:31)
[2018-02-26] MEDS: PROMETHAZ-COD 6.25-10 MG/5 ML 5 ML CUP PO PRN ×2 (11:51→21:22)
[2018-02-26] MEDS ORDERED: LEVOFLOXACIN 500 MG TAB PO SCH (15:00)
--- NOTE | 2018-02-26 16:10 | P.CNPUL ---
History of Present Illness Consult date: 02/26/18 Requesting physician: Hema Ha Reason for consult: dyspnea Chief complaint: Shortness of breath, cough, congestion History of present illness: This is a very pleasant 52-year-old female patient of follows with Dr. Dougherty as her primary care physician. She has a history of multiple sclerosis, severe persistent bronchial asthma, peptic neuritis, postural orthostatic tachycardia syndrome (see pots), gastroesophageal reflux disease, fibromyalgia, chronic back pain, obstructive sleep apnea intolerant to CPAP therapy, adrenal insufficiency, migraine cephalgia, hypertension, status post hypoglossal nerve stimulator implantation. She had undergone her last bronchoscopy with BAL in January 2018 no growth in cultures. She presented to Dr. Lucia's office earlier this week with complaints of increasing shortness of breath cough or congestion. She was treated with antibiotics and steroids without much improvement and presented here again to the emergency room for the same. No leukocytosis. Afebrile since admission. Maintaining high O2 saturations in the 90s on room air. Hemodynamically stable. Influenza screen negative. She is seen today in consultation on the regular medical floor. She is awake and alert in no acute distress. Her main complaint is that of shortness of breath and weakness. Stating her MS presents her from expectorating any sputum. She continues with a loose nonproductive cough. She's been initiated on Levaquin, Symbicort, DuoNeb inhalations, Tessalon Perles, Flovent, Cortef, Singulair, Phenergan with codeine. Review of Systems 14 point review of system was conducted. All negative other than as mentioned in the HPI. Past Medical History Past Medical History: Asthma, COPD, Eye Disorder, Fibromyalgia, GERD/Reflux, Hyperlipidemia, Liver Disease, Neurologic Disorder, Osteoarthritis (OA), Pneumonia, Sleep Apnea/CPAP/BIPAP, Supraventricular Tachycardia (SVT) Additional Past Medical History / Comment(s): Bronchitis, multiple sclerosis, chronic lumbago, migraines, adrenal insufficiency, POTS, avascular necrosis, bilateral optic neuritis, autoimmune hepatitis, anemia, ALEXA with surgery. History of Any Multi-Drug Resistant Organisms: None Reported Past Surgical History: Bowel Resection, Cholecystectomy, EPS, Hernia Repair, Hysterectomy, Joint Replacement, Orthopedic Surgery, Tonsillectomy Additional Past Surgical History / Comment(s): Multiple bronchoscopies/BALs with last time being 02/05/18, bowel "twisted" with 8 inches removed, bilateral knee arthroscopies, total R knee arthroplasty, bilateral hip arthroplasties, R elbow surgery d/t trauma, L ankle breen/shultz, bilateral foot surgeries- fractured toe/pinned and neuroma removed, R rotator cuff repair, hypoglossal nerve stimulator ([employer]) for ALEXA, L power port, past picc line, sinus surgery , bilateral blepharoplasties, EGD/colonoscopy, lap Shaan fundoplasty, TTT, stone removed from R salivary gland. Past Anesthesia/Blood Transfusion Reactions: Blood Transfusion Reaction Additional Past Anesthesia/Blood Transfusion Reaction / Comment(s): HX OF BLOOD TRANSFUSION : HAS CARD STATING K ANTIBODY AFTER RECEIVING A TRANSFUSION Smoking Status: Never smoker - Past Family History Mother Family Medical History: Hypertension, Thyroid Disorder Additional Family Medical History / Comment(s): Mother is an alcoholic. Pt has no contact with her mother. Father Family Medical History: COPD, Hypertension Additional Family Medical History / Comment(s): Father at the age of 69yrs from emphysema. He was a smoker. Brother(s) Additional Family Medical History / Comment(s): Brother-[place] X2 Medications and Allergies Home Medications Medication Instructions Recorded Confirmed Type Montelukast [Singulair] 10 mg PO HS 07/14/13 02/26/18 History Fluticasone/Vilanterol [Breo 1 puff INHALATION RT-DAILY 11/19/15 02/26/18 History Ellipta 200-25 Mcg INH] Promethaz-Cod 6.25-10 mg/5 ml 5 ml PO Q4-6H PRN 03/06/16 02/26/18 History [Phenergan with Codeine] Mometasone Inhalr 220 Mcg/Puff 2 puff INHALATION RT-DAILY 03/07/16 02/26/18 History [Asmanex] DULoxetine HCL [Cymbalta] 60 mg PO QAM 11/13/16 02/26/18 History Esomeprazole Magnesium [NexIUM] 40 mg PO HS 01/05/17 02/26/18 History Fluticasone Nasal Sparks [Flonase 2 spray EA NOSTRIL BID 01/05/17 02/26/18 History Nasal Sparks] Prochlorperazine [Compazine] 10 mg PO Q8H PRN 01/05/17 02/26/18 History ALPRAZolam [Xanax] 0.5 mg PO TID PRN 12/01/17 02/26/18 History Cholecalciferol (Vitamin D3) 12,000 unit PO DAILY 12/01/17 02/26/18 History [Vitamin D3] Cholestyramine (with Sugar) 4 gm PO BID 12/01/17 02/26/18 History [Questran Packet] Fluconazole [Diflucan] 200 mg PO DAILY PRN 12/01/17 02/26/18 History Topiramate 50 mg PO HS 12/01/17 02/26/18 History Xeomin 1 injection IM Q90D 12/01/17 02/26/18 History traZODone HCL 150 mg PO HS 12/01/17 02/26/18 History Hydrocortisone [Cortef] 20 mg PO DAILY@1400 02/26/18 02/26/18 History Hydrocortisone [Cortef] 40 mg PO DAILY 02/26/18 02/26/18 History Allergies Allergy/AdvReac Type Severity Reaction Status Date / Time latex Allergy Severe Anaphylaxis Verified 02/26/18 07:03 Sulfa (Sulfonamide Allergy Severe Rash/Hives Verified 02/26/18 07:03 Antibiotics) adhesive Allergy Rash/Hives Verified 02/26/18 07:03 alcohol Allergy Rash/Hives Verified 02/26/18 07:03 [From Mastisol Adhesive] amoxicillin Allergy Rash/Hives Verified 02/26/18 07:03 bupropion [From Wellbutrin] Allergy Unknown Verified 02/26/18 07:03 glatiramer (copolymer 1) Allergy Unknown Verified 02/26/18 07:03 [From Copaxone] gum mastic Allergy Rash/Hives Verified 02/26/18 07:03 [From Mastisol Adhesive] interferon beta-1b Allergy Unknown Verified 02/26/18 07:03 [From Betaseron] methyl salicylate Allergy Rash/Hives Verified 02/26/18 07:03 [From Mastisol Adhesive] mold Allergy Unknown Verified 02/26/18 07:03 ragweed pollen Allergy Unknown Verified 02/26/18 07:03 storax Allergy Rash/Hives Verified 02/26/18 07:03 [From Mastisol Adhesive] sulfamethoxazole Allergy Rash/Hives Verified 02/26/18 07:03 [From Bactrim] trimethoprim [From Bactrim] Allergy Rash/Hives Verified 02/26/18 07:03 bupropion HCl AdvReac Severe Rash/Hives Verified 02/26/18 07:03 [From Wellbutrin] gluten AdvReac Severe Nausea & Verified 02/26/18 07:03 Vomiting & Diarrhea interferon beta AdvReac Severe Rash/Hives Verified 02/26/18 07:03 interferon beta-1a AdvReac Severe Rash/Hives Verified 02/26/18 07:03 [From Avonex] lamotrigine [From Lamictal] AdvReac Severe Rash/Hives Verified 02/26/18 07:03 milk AdvReac Severe Nausea & Verified 02/26/18 07:03 Vomiting oxaprozin [From Daypro] AdvReac Severe Rash/Hives Verified 02/26/18 07:03 Penicillins AdvReac Severe Rash/Hives Verified 02/26/18 07:03 azithromycin AdvReac Unknown Rash/Hives, Verified 02/26/18 07:03 RED SKIN, ITCHING doxycycline AdvReac Unknown Rash/Hives Verified 02/26/18 07:03 albumin human AdvReac Rash/Hives Verified 02/26/18 07:03 [From Rebif (with albumin)] dicyclomine [From Bentyl] AdvReac Rash/Hives Verified 02/26/18 07:03 wheat AdvReac Nausea & Verified 02/26/18 07:03 Vomiting & Diarrhea cow's milk Allergy ASTHMA Uncoded 02/26/18 02:17 SYMPTOMS DUST Allergy ASTHMA Uncoded 02/26/18 02:17 SYMPTOMS STERISTRIPS AdvReac Severe BLISTERS Uncoded 02/26/18 02:17 TO SKIN Physical Exam Vitals: Vital Signs Temp Pulse Pulse Resp BP BP Pulse Ox 02/26/18 14:31 98.3 F 98 16 102/58 98 02/26/18 13:07 92 02/26/18 12:57 92 02/26/18 09:48 92 02/26/18 09:35 92 02/26/18 07:32 97.5 F L 84 18 125/72 95 02/26/18 06:15 68 16 108/81 97 02/26/18 05:06 64 16 110/77 02/26/18 05:00 77 16 93 L 02/26/18 04:00 75 16 91 L 02/26/18 03:55 89 18 122/111 98 02/26/18 03:30 77 16 02/26/18 03:00 79 16 02/26/18 02:52 91 18 02/26/18 02:47 90 18 02/26/18 02:31 18 02/26/18 02:27 18 02/26/18 02:23 20 02/26/18 02:12 98.3 F 85 26 H 113/71 98 Intake and Output 02/26/18 02/26/18 02/26/18 06:59 14:59 22:59 Intake Total 1000 Balance 1000 Intake: Intake, IV Titration 800 Amount Sodium Chloride 0.9% 1, 800 000 ml @ 75 mls/hr IV . [id number] [facility] Rx#:[id number] Other 200 Other: # Voids 3 Weight 92.986 kg 92.986 kg GENERAL EXAM: Alert, fairly comfortable in no apparent distress. On room air. HEAD: Normocephalic. EYES: Normal reaction of pupils, equal size. NOSE: Clear with pink turbinates. THROAT: No erythema or exudates. NECK: No masses, no JVD. CHEST: No chest wall deformity. LUNGS: Equal air entry with no crackles, wheeze, rhonchi or dullness. CVS: S1 and S2 normal with no audible murmur, regular rhythm. ABDOMEN: No hepatosplenomegaly, normal bowel sounds, no guarding or rigidity. SPINE: No scoliosis or deformity SKIN: No rashes CENTRAL NERVOUS SYSTEM: No focal deficits, tone is weak in all 4 extremities. EXTREMITIES: There is no peripheral edema. No clubbing, no cyanosis. Peripheral pulses are intact. Results - Laboratory Findings CBC and BMP: 02/26/18 03:48 02/26/18 03:48 PT/INR, D-dimer PT 9.7 sec (9.0-12.0) 02/26/18 07:56 INR 0.9 (<1.2) 02/26/18 07:56 Abnormal lab findings: Abnormal Labs 02/26/18 02/26/18 03:48 03:48 PT 20.3 H INR 2.1 H APTT >200.0 H* Potassium 3.0 L Chloride 113 H Carbon Dioxide 21 L BUN 6 L Calcium 8.0 L Total Protein 6.2 L Albumin 3.3 L - Diagnostic Findings Chest x-ray: image reviewed (No acute pulmonary process.) Assessment and Plan Assessment: Impression: #1 Acute exacerbation of severe persistent chronic bronchial asthma. Failed outpatient treatment. No pneumonia. #2 Obstructive sleep apnea intolerant to CPAP therapy. Status post hypoglossal nerve stimulator performed June 2017 at [facility]. #3 History of adrenal insufficiency maintained on Cortef in the outpatient setting. #4 Multiple sclerosis maintained on Aubagio. #5 Optic neuritis. #6 History of postural orthostatic tachycardia syndrome (POTS) #7 Autoimmune hepatitis. #8 Fibromyalgia. #9 Chronic back pain. #10 Gastroesophageal reflux disease. Plan: The patient was seen and evaluated by Dr. Thacker. Chest x-ray and labs were reviewed. We will treat her with empiric antibiotics. Continue asthma exacerbation medications. Replace electrolytes. We will continue to follow and make further recommendations based on her clinical status. I, the cosigning physician, performed a history & physical examination of the patient. Lungs sounds are clear. Maintaining good O2 saturations in the 90s on room air. I discussed the assessment and plan of care with my nurse practitioner, Carmen Matthew. I attest to the above consultation as dictated by her. Time with Patient: Greater than 30
--- NOTE | 2018-02-26 18:33 | P.PN ---
Progress Note - Text Progress Note Date: 02/26/18 Patient seen and examined at [facility]. Seen by Dr. Ha early this AM. Breathing improved. Asking for dilaudid for rib pain. Told her 1 dose and then oral medications. General: non toxic, no distress, appears older than stated age Derm: warm, dry Head: atraumatic, normocephalic, symmetric Eyes: EOMI, no lid lag, anicteric sclera Mouth: no lip lesion, mucus membranes moist Cardiovascular: S1S2 reg, no murmur, positive posterior tibial pulse bilateral, Lungs: ronchi b/l , no accessory muscle use Abdominal: soft, nontender to palpation, no guarding, no appreciable organomegaly Ext: no gross muscle atrophy, no edema, no contractures Neuro: CN II-XI grossly intact, no focal neuro deficits Psych: Alert, oriented, appropriate affect Please see assessment and plan from H and P by Dr. Ha
[2018-02-26] MEDS: LEVOFLOXACIN 500MG-D5W PMX 500 MG in DEXTROSE/WATER 1 100ML.BAG IVPB SCH (21:13)
[2018-02-26] MEDS: PANTOPRAZOLE 40 MG TABLET PO SCH (21:14)
[2018-02-26] MEDS: MONTELUKAST 10 MG TAB PO SCH (21:14)
[2018-02-26] MEDS: TOPIRAMATE 25 MG TAB PO SCH (21:14)
[2018-02-26] MEDS: traZODone HCL 50 MG TAB PO SCH (21:15)
[2018-02-26] MEDS: ALPRAZolam 0.5 MG TAB PO PRN (21:22)
[2018-02-27] MEDS: BENZONATATE 100 MG CAP PO PRN ×2 (04:09→21:10)
[2018-02-27 08:34] LABS: ALT 11 U/L (9-52); AST 12 U/L (14-36); Albumin 3.8 g/dL (3.5-5.0); Alkaline Phosphatase 68 U/L (38-126); Anion Gap 6 mmol/L; Blood Urea Nitrogen 10 mg/dL (7-17); Calcium 9.1 mg/dL (8.4-10.2); Carbon Dioxide 22 mmol/L (22-30); Chloride 113 mmol/L (98-107); Glucose 111 mg/dL (74-99); Magnesium 2.1 mg/dL (1.6-2.3); Phosphorus 3.2 mg/dL (2.5-4.5); Potassium 4.3 mmol/L (3.5-5.1); Sodium 141 mmol/L (137-145); Total Bilirubin 0.3 mg/dL (0.2-1.3); Total Protein 6.5 g/dL (6.3-8.2)
[2018-02-27] MEDS: FLUTICASONE 110 MCG INHALER INHALATION SCH ×2 (09:13→19:40)
[2018-02-27] MEDS: SYMBICORT 160-4.5 MCG INHALER INHALATION SCH ×2 (09:13→19:40)
[2018-02-27] MEDS: CHOLECALCIFEROL 1,000 UNIT TAB PO SCH (09:23)
[2018-02-27] MEDS: DULoxetine HCL 60 MG CAPSULE.DR PO SCH (09:23)
[2018-02-27] MEDS: CHOLESTYRAMINE (WITH SUGAR) 4 GM PACKET PO SCH ×2 (09:23→21:06)
[2018-02-27] MEDS: HYDROCORTISONE 20 MG TAB PO SCH ×2 (09:24→13:11)
[2018-02-27] MEDS: FLUTICASONE 50MCG/SPRAY NASAL 16GM EA NOSTRIL SCH ×2 (09:26→21:06)
[2018-02-27] MEDS: PROMETHAZ-COD 6.25-10 MG/5 ML 5 ML CUP PO PRN (11:43)
[2018-02-27] MEDS: HYDROcodone/APAP 10-325MG 1 EACH TAB PO PRN (11:46)
--- NOTE | 2018-02-27 13:46 | P.PN ---
Subjective Progress Note Date: 02/27/18 Principal diagnosis: Acute exacerbation of severe persistent chronic bronchial asthma. This is a very pleasant 52-year-old female patient of follows with Dr. Dougherty as her primary care physician. She has a history of multiple sclerosis, severe persistent bronchial asthma, peptic neuritis, postural orthostatic tachycardia syndrome (see pots), gastroesophageal reflux disease, fibromyalgia, chronic back pain, obstructive sleep apnea intolerant to CPAP therapy, adrenal insufficiency, migraine cephalgia, hypertension, status post hypoglossal nerve stimulator implantation. She had undergone her last bronchoscopy with BAL in January 2018 no growth in cultures. She presented to Dr. Lucia's office earlier this week with complaints of increasing shortness of breath cough or congestion. She was treated with antibiotics and steroids without much improvement and presented here again to the emergency room for the same. No leukocytosis. Afebrile since admission. Maintaining high O2 saturations in the 90s on room air. Hemodynamically stable. Influenza screen negative. She is seen today in consultation on the regular medical floor. She is awake and alert in no acute distress. Her main complaint is that of shortness of breath and weakness. Stating her MS presents her from expectorating any sputum. She continues with a loose nonproductive cough. She's been initiated on Levaquin, Symbicort, DuoNeb inhalations, Tessalon Perles, Flovent, Cortef, Singulair, Phenergan with codeine. The patient is seen again today 02/27/2018 in follow-up on the regular medical floor. She is awake and alert in no acute distress. She is a bit stronger today compared to yesterday. Less rhonchus spastic and wheezy. Continues to maintain good O2 saturation in the mid 90s on room air. She's afebrile. Hemodynamically stable. Blood cultures reveal no growth. Sodium 141. Potassium 4.3. Creatinine 0.84. Vitamin B12 264. Objective - Vital Signs Vital signs: Vital Signs Temp 97.9 F 02/27/18 07:39 Pulse 95 02/27/18 07:39 Resp 18 02/27/18 07:40 BP 116/78 02/27/18 07:39 Pulse Ox 95 02/27/18 07:39 Intake & Output 02/26/18 02/27/18 02/27/18 18:59 06:59 18:59 Intake Total 1000 2390 Balance 1000 2390 Weight 92.986 kg Intake: Intake, IV Titration 800 770 Amount Levofloxacin 500Mg-D5w 200 Pmx 500 mg In Dextrose/ Water 1 100ml.bag @ 100 mls/hr IVPB Q24H [facility] Rx#: [id number] Sodium Chloride 0.9% 1, 800 570 000 ml @ 75 mls/hr IV . [id number] STA Rx#:[id number] Oral 1620 Other 200 Other: Voiding Method Toilet Toilet # Voids 3 2 1 - Exam GENERAL EXAM: Alert, active, comfortable in no apparent distress. Room air. HEAD: Normocephalic. EYES: Normal reaction of pupils, equal size. NOSE: Clear with pink turbinates. THROAT: No erythema or exudates. NECK: No masses, no JVD. CHEST: No chest wall deformity. LUNGS: Equal air entry with faint end expiratory wheeze. CVS: S1 and S2 normal with no audible murmur, regular rhythm. ABDOMEN: No hepatosplenomegaly, normal bowel sounds, no guarding or rigidity. SPINE: No scoliosis or deformity SKIN: No rashes CENTRAL NERVOUS SYSTEM: No focal deficits, tone is normal in all 4 extremities. EXTREMITIES: There is no peripheral edema. No clubbing, no cyanosis. Peripheral pulses are intact. - Labs CBC & Chem 7: 02/26/18 03:48 02/27/18 07:48 Labs: Abnormal Lab Results - Last 24 Hours (Table) 02/27/18 Range/Units 07:48 Chloride 113 H (98-107) mmol/L Glucose 111 H (74-99) mg/dL AST 12 L (14-36) U/L Microbiology - Last 24 Hours (Table) 02/26/18 03:48 Blood Culture - Preliminary Blood No Growth after 24 hours Assessment and Plan Assessment: Impression: #1 Acute exacerbation of severe persistent chronic bronchial asthma. Failed outpatient treatment. No pneumonia. #2 Obstructive sleep apnea intolerant to CPAP therapy. Status post hypoglossal nerve stimulator performed June 2017 at [facility]. #3 History of adrenal insufficiency maintained on Cortef in the outpatient setting. #4 Multiple sclerosis. #5 Optic neuritis. #6 History of postural orthostatic tachycardia syndrome (POTS) #7 Autoimmune hepatitis. #8 Fibromyalgia. #9 Chronic back pain. #10 Gastroesophageal reflux disease. Plan: The patient was seen and evaluated by Dr. Thacker. She is improved today compared to yesterday. Not quite back to her baseline. Continue with her current treatment plan. We will continue to follow and make further recommendations based on her clinical status. I, the cosigning physician, performed a history & physical examination of the patient. Lungs sounds with faint end expiratory wheeze. Maintaining good O2 saturations in the 90s on room air. I discussed the assessment and plan of care with my nurse practitioner, Carmen Matthew. I attest to the above consultation as dictated by her.
[2018-02-27] MEDS: IPRATROPIUM-ALBUTEROL 3 ML NEB INHALATION PRN ×2 (15:57→19:40)
--- NOTE | 2018-02-27 18:29 | P.PN ---
Subjective Progress Note Date: 02/27/18 (Delayed charting patient seen at 1215) Principal diagnosis: shortness of breath Patient is a 52-year-old female past medical history of asthma, multiple sclerosis, adrenal insufficiency, and obstructive sleep apnea presented to the emergency department due to worsening shortness of breath with nonproductive cough for 2 months. Patient was seen by Dr. Dougherty multiple times throughout this illness she had a bronch approximately 3 weeks ago with minimal improvement of her symptoms. She then saw Dr. Dougherty again 2 days before admission and was placed on prednisone and he called in an antibiotic. Her symptoms did not improve within 24 hours and she presented to the emergency department. In the ER she underwent an extensive evaluation. Her white blood cell count was 6.1, troponin negative, BNP 9, influenza was negative. Chest x- ray revealed no acute process. She was admitted for treatment of her acute exacerbation of asthma and acute bronchitis failed outpatient treatment. She was given 1 dose of IV steroids and placed on IV antibiotics. She was then maintained on her home steroid dosing for her adrenal insufficiency. She was seen by pulmonary. Patient seen and examined at bedside. She believes her cough is slightly better today. She is still not able to bring anything up secondary to her multiple sclerosis. She denies any nausea or vomiting. Her headache is better from yesterday. Rib pain is controlled at this point in time. Objective - Vital Signs Vital signs: Vital Signs Temp 98.1 F 02/27/18 14:32 Pulse 88 02/27/18 16:07 Resp 18 02/27/18 14:32 BP 124/85 02/27/18 14:32 Pulse Ox 95 02/27/18 14:32 Intake & Output 02/26/18 02/27/18 02/27/18 18:59 06:59 18:59 Intake Total 1000 2390 Balance 1000 2390 Weight 92.986 kg Intake: Intake, IV Titration 800 770 Amount Levofloxacin 500Mg-D5w 200 Pmx 500 mg In Dextrose/ Water 1 100ml.bag @ 100 mls/hr IVPB Q24H [facility] Rx#: [id number] Sodium Chloride 0.9% 1, 800 570 000 ml @ 75 mls/hr IV . [id number] STA Rx#:[id number] Oral 1620 Other 200 Other: Voiding Method Toilet Toilet # Voids 3 2 1 - Exam General: non toxic, no distress, appears older than stated age, obese Derm: warm, dry Head: atraumatic, normocephalic, symmetric Eyes: EOMI, no lid lag, anicteric sclera Mouth: no lip lesion, mucus membranes moist Cardiovascular: S1S2 reg, no murmur, positive posterior tibial pulse bilateral, Lungs: Faint wheezes bilateral, no rhonchi, no rales , no accessory muscle use Abdominal: soft, nontender to palpation, no guarding, no appreciable organomegaly Ext: no gross muscle atrophy, no edema, no contractures Neuro: CN II-XI grossly intact, no focal neuro deficits Psych: Alert, oriented, appropriate affect - Labs CBC & Chem 7: 02/26/18 03:48 02/27/18 07:48 Labs: Abnormal Lab Results - Last 24 Hours (Table) 02/27/18 Range/Units 07:48 Chloride 113 H (98-107) mmol/L Glucose 111 H (74-99) mg/dL AST 12 L (14-36) U/L Microbiology - Last 24 Hours (Table) 02/26/18 03:48 Blood Culture - Preliminary Blood No Growth after 24 hours Assessment and Plan Assessment: Acute asthma exacerbation with acute bronchitis -C/w Duonebs, flovent, symbicort -Pulmonary recs -Levaquin -Phenergan Multiple sclerosis -Xeomin Adrenal insufficiency -continue cortef ALEXA -S/p hypoglossal nerve stimulator Hypokalemia, resolved Chronic: POTS Fibromyalgia GERD Discussed with: Patient Anticipated discharge date: 1-[address]: Home A total of 25 minutes was spent on the care of this complex patient more than 50 % of the time was spent in counseling and care coordination.
[2018-02-27] MEDS: LEVOFLOXACIN 500MG-D5W PMX 500 MG in DEXTROSE/WATER 1 100ML.BAG IVPB SCH (21:05)
[2018-02-27] MEDS: PANTOPRAZOLE 40 MG TABLET PO SCH (21:06)
[2018-02-27] MEDS: traZODone HCL 50 MG TAB PO SCH (21:06)
[2018-02-27] MEDS: MONTELUKAST 10 MG TAB PO SCH (21:06)
[2018-02-27] MEDS: TOPIRAMATE 25 MG TAB PO SCH (21:07)
[2018-02-28] MEDS: HYDROcodone/APAP 10-325MG 1 EACH TAB PO PRN (00:48)
[2018-02-28] MEDS: PROMETHAZ-COD 6.25-10 MG/5 ML 5 ML CUP PO PRN ×3 (04:29→19:37)
[2018-02-28] MEDS: ALPRAZolam 0.5 MG TAB PO PRN (05:46)
[2018-02-28] MEDS: CHOLECALCIFEROL 1,000 UNIT TAB PO SCH (07:03)
[2018-02-28] MEDS: FLUTICASONE 50MCG/SPRAY NASAL 16GM EA NOSTRIL SCH ×2 (07:03→21:24)
[2018-02-28] MEDS: DULoxetine HCL 60 MG CAPSULE.DR PO SCH (07:03)
[2018-02-28] MEDS: CHOLESTYRAMINE (WITH SUGAR) 4 GM PACKET PO SCH ×2 (07:05→19:37)
[2018-02-28] MEDS: HYDROCORTISONE 20 MG TAB PO SCH ×2 (07:05→15:22)
[2018-02-28] MEDS: FLUTICASONE 110 MCG INHALER INHALATION SCH ×2 (09:47→21:17)
[2018-02-28] MEDS: SYMBICORT 160-4.5 MCG INHALER INHALATION SCH ×2 (09:47→21:17)
[2018-02-28] MEDS ORDERED: CYANOCOBALAMIN 1,000 MCG/ML 1 ML VIAL IM ONE (10:34)
--- NOTE | 2018-02-28 16:23 | P.PN ---
Subjective Progress Note Date: 02/28/18 Principal diagnosis: shortness of breath Patient is a 52-year-old female past medical history of asthma, multiple sclerosis, adrenal insufficiency, and obstructive sleep apnea presented to the emergency department due to worsening shortness of breath with nonproductive cough for 2 months. Patient was seen by Dr. Dougherty multiple times throughout this illness she had a bronch approximately 3 weeks ago with minimal improvement of her symptoms. She then saw Dr. Dougherty again 2 days before admission and was placed on prednisone and he called in an antibiotic. Her symptoms did not improve within 24 hours and she presented to the emergency department. In the ER she underwent an extensive evaluation. Her white blood cell count was 6.1, troponin negative, BNP 9, influenza was negative. Chest x- ray revealed no acute process. She was admitted for treatment of her acute exacerbation of asthma and acute bronchitis failed outpatient treatment. She was given 1 dose of IV steroids and placed on IV antibiotics. She was then maintained on her home steroid dosing for her adrenal insufficiency. She was seen by pulmonary maintained on bronchodilators. Patient seen and examined at bedside. Was able to cough some sputum up / and sent for culture. Still feeling SOB and very tired today. States they just increased her steroids as outpatient. No nausea. Objective - Vital Signs Vital signs: Vital Signs Temp 97.8 F 02/28/18 13:06 Pulse 102 H 02/28/18 13:06 Resp 16 02/28/18 06:57 BP 116/77 02/28/18 13:06 Pulse Ox 98 02/28/18 13:06 Intake & Output 02/27/18 02/28/18 02/28/18 18:59 06:59 18:59 Intake Total 1300 Balance 1300 Intake: Intake, IV Titration 1300 Amount Levofloxacin 500Mg-D5w 100 Pmx 500 mg In Dextrose/ Water 1 100ml.bag @ 100 mls/hr IVPB Q24H [facility] Rx#: [id number] Sodium Chloride 0.9% 1, 1200 000 ml @ 75 mls/hr IV . [id number] [facility] Rx#:[id number] Other: Voiding Method Toilet Toilet # Voids 1 2 1 - Exam General: non toxic, no distress, appears older than stated age, obese Derm: warm, dry Head: atraumatic, normocephalic, symmetric Eyes: EOMI, no lid lag, anicteric sclera Mouth: no lip lesion, mucus membranes moist Cardiovascular: S1S2 reg, no murmur, positive posterior tibial pulse bilateral, Lungs: CTA bilateral, no rhonchi, no rales , no accessory muscle use Abdominal: soft, nontender to palpation, no guarding, no appreciable organomegaly Ext: no gross muscle atrophy, no edema, no contractures Neuro: CN II-XI grossly intact, no focal neuro deficits Psych: Alert, oriented, appropriate affect - Labs CBC & Chem 7: 02/26/18 03:48 02/27/18 07:48 Labs: Microbiology - Last 24 Hours (Table) 02/27/18 21:50 Gram Stain - Preliminary Sputum Sputum Culture - Preliminary 02/26/18 03:48 Blood Culture - Preliminary Blood No Growth after 48 hours Assessment and Plan Assessment: Acute asthma exacerbation with acute bronchitis -Duonebs, flovent, symbicort -Pulmonary recs -Levaquin -Phenergan Multiple sclerosis -Xeomin Adrenal insufficiency -continue cortef ALEXA -S/p hypoglossal nerve stimulator Hypokalemia, resolved Chronic: POTS Fibromyalgia GERD Likely home in 24 hours Discussed with: Patient Anticipated discharge date: [address]: Home A total of 25 minutes was spent on the care of this complex patient more than 50 % of the time was spent in counseling and care coordination.
--- NOTE | 2018-02-28 16:27 | P.PN ---
Subjective Progress Note Date: 02/28/18 Principal diagnosis: Acute exacerbation of severe persistent bronchial asthma This is a very pleasant 52-year-old female patient of follows with Dr. Dougherty as her primary care physician. She has a history of multiple sclerosis, severe persistent bronchial asthma, peptic neuritis, postural orthostatic tachycardia syndrome (see pots), gastroesophageal reflux disease, fibromyalgia, chronic back pain, obstructive sleep apnea intolerant to CPAP therapy, adrenal insufficiency, migraine cephalgia, hypertension, status post hypoglossal nerve stimulator implantation. She had undergone her last bronchoscopy with BAL in January 2018 no growth in cultures. She presented to Dr. Lucia's office earlier this week with complaints of increasing shortness of breath cough or congestion. She was treated with antibiotics and steroids without much improvement and presented here again to the emergency room for the same. No leukocytosis. Afebrile since admission. Maintaining high O2 saturations in the 90s on room air. Hemodynamically stable. Influenza screen negative. She is seen today in consultation on the regular medical floor. She is awake and alert in no acute distress. Her main complaint is that of shortness of breath and weakness. Stating her MS presents her from expectorating any sputum. She continues with a loose nonproductive cough. She's been initiated on Levaquin, Symbicort, DuoNeb inhalations, Tessalon Perles, Flovent, Cortef, Singulair, Phenergan with codeine. The patient is seen again today 02/27/2018 in follow-up on the regular medical floor. She is awake and alert in no acute distress. She is a bit stronger today compared to yesterday. Less rhonchus spastic and wheezy. Continues to maintain good O2 saturation in the mid 90s on room air. She's afebrile. Hemodynamically stable. Blood cultures reveal no growth. Sodium 141. Potassium 4.3. Creatinine 0.84. Vitamin B12 264. Reevaluated today on 02/28/2018, continues to have intermittent episodes of cough and wheezing. Didn't sleep much last night, patient is maximized on bronchodilators, there is definite improvement, but she is not back to her baseline according to her. Labs were reviewed, she had a relatively normal basic metabolic profile. Influenza screening was negative on admission. Chest x-ray showed no evidence of acute infiltrate. Objective - Vital Signs Vital signs: Vital Signs Temp 97.8 F 02/28/18 13:06 Pulse 102 H 02/28/18 13:06 Resp 16 02/28/18 06:57 BP 116/77 02/28/18 13:06 Pulse Ox 98 02/28/18 13:06 Intake & Output 02/27/18 02/28/18 02/28/18 18:59 06:59 18:59 Intake Total 1300 Balance 1300 Intake: Intake, IV Titration 1300 Amount Levofloxacin 500Mg-D5w 100 Pmx 500 mg In Dextrose/ Water 1 100ml.bag @ 100 mls/hr IVPB Q24H [facility] Rx#: [id number] Sodium Chloride 0.9% 1, 1200 000 ml @ 75 mls/hr IV . [id number] [facility] Rx#:[id number] Other: Voiding Method Toilet Toilet # Voids 1 2 1 - Exam Physical Exam: Revealed 52-year-old female in no distress. Head: Atraumatic normocephalic. HEENT:[Neck is supple.] [No neck masses.] [No thyromegaly.] [No JVD.] PERRLA, EOMI, no icterus. Chest: [Clear throughout, no crackles, no rhonchi, no wheezes.] Cardiac Exam: [Normal S1 and S2, no S3 gallop, no murmur.] Abdomen: [Soft, nontender, no megaly, no rebound, no guarding, normal bowel sounds.] Extremities: [No clubbing, no edema, no cyanosis.] Neurological Exam: [No focal neurologic deficit.] - Labs CBC & Chem 7: 02/26/18 03:48 02/27/18 07:48 Labs: Microbiology - Last 24 Hours (Table) 02/27/18 21:50 Gram Stain - Preliminary Sputum Sputum Culture - Preliminary 02/26/18 03:48 Blood Culture - Preliminary Blood No Growth after 48 hours Assessment and Plan Assessment: #1 Acute exacerbation of severe persistent chronic bronchial asthma. Failed outpatient treatment. No pneumonia. #2 Obstructive sleep apnea intolerant to CPAP therapy. Status post hypoglossal nerve stimulator performed June 2017 at [facility]. #3 History of adrenal insufficiency maintained on Cortef in the outpatient setting. #4 Multiple sclerosis. #5 Optic neuritis. #6 History of postural orthostatic tachycardia syndrome (POTS) #7 Autoimmune hepatitis. #8 Fibromyalgia. #9 Chronic back pain. #10 Gastroesophageal reflux disease. Recommendation: Continue present treatment plan including bronchodilators, antibiotics, steroids, sputum was sent today for culture, patient had some greenish sputum production early this morning, unfortunately the patient has ALLERGIES to multiple antibiotics, and with the right have many choices but decision will be made on antibiotics change depending on the sputum culture. She had a recent bronchoscopy on outpatient basis, and cultures were nondiagnostic. Patient will be reevaluated tomorrow by Dr. Dougherty and he will decide whether the patient could be discharged home soon . Discussed her condition with the admitting physician and explained to keep at least for another day. Time with Patient: Less than 30
[2018-02-28] MEDS: LEVOFLOXACIN 500MG-D5W PMX 500 MG in DEXTROSE/WATER 1 100ML.BAG IVPB SCH (19:37)
[2018-02-28] MEDS: MONTELUKAST 10 MG TAB PO SCH (21:24)
[2018-02-28] MEDS: traZODone HCL 50 MG TAB PO SCH (21:24)
[2018-02-28] MEDS: PANTOPRAZOLE 40 MG TABLET PO SCH (21:24)
[2018-02-28] MEDS: BENZONATATE 100 MG CAP PO PRN (21:24)
[2018-02-28] MEDS: TOPIRAMATE 25 MG TAB PO SCH (21:25)
[2018-03-01] MEDS: PROMETHAZ-COD 6.25-10 MG/5 ML 5 ML CUP PO PRN ×4 (00:24→22:16)
[2018-03-01] MEDS: ALPRAZolam 0.5 MG TAB PO PRN ×2 (08:19→22:16)
[2018-03-01] MEDS: CHOLESTYRAMINE (WITH SUGAR) 4 GM PACKET PO SCH ×2 (08:19→17:16)
[2018-03-01] MEDS: DULoxetine HCL 60 MG CAPSULE.DR PO SCH (08:19)
[2018-03-01] MEDS: CHOLECALCIFEROL 1,000 UNIT TAB PO SCH (08:19)
[2018-03-01] MEDS: FLUTICASONE 50MCG/SPRAY NASAL 16GM EA NOSTRIL SCH ×2 (08:20→22:09)
[2018-03-01] MEDS: HYDROCORTISONE 20 MG TAB PO SCH (08:20)
[2018-03-01] MEDS: SYMBICORT 160-4.5 MCG INHALER INHALATION SCH (08:43)
[2018-03-01] MEDS: FLUTICASONE 110 MCG INHALER INHALATION SCH ×2 (08:43→20:20)
[2018-03-01] MEDS: methylPREDNISolone SOD SUCCI 125 MG/2 ML VIAL IV SCH ×3 (13:03→23:42)
[2018-03-01] MEDS: HYDROcodone/APAP 10-325MG 1 EACH TAB PO PRN (13:03)
--- NOTE | 2018-03-01 16:40 | P.PN ---
Subjective Progress Note Date: 03/01/18 Principal diagnosis: Patient is a 52-year-old female past medical history of asthma, multiple sclerosis, adrenal insufficiency, and obstructive sleep apnea presented to the emergency department due to worsening shortness of breath with nonproductive cough for 2 months. Patient was seen by Dr. Dougherty multiple times throughout this illness she had a bronch approximately 3 weeks ago with minimal improvement of her symptoms. She then saw Dr. Dougherty again 2 days before admission and was placed on prednisone and he called in an antibiotic. Her symptoms did not improve within 24 hours and she presented to the emergency department. In the ER she underwent an extensive evaluation. Her white blood cell count was 6.1, troponin negative, BNP 9, influenza was negative. Chest x- ray revealed no acute process. She was admitted for treatment of her acute exacerbation of asthma and acute bronchitis failed outpatient treatment. She was given 1 dose of IV steroids and placed on IV antibiotics. She was then maintained on her home steroid dosing for her adrenal insufficiency. She was seen by pulmonary maintained on bronchodilators. patient reports that she's not quite back to her baseline, still complain of some shortness of breath with chest congestion and wheezes are much improved. Afebrile overnight. Reports that she had a updraft approximately an hour prior. No acute events overnight. Objective - Vital Signs Vital signs: Vital Signs Temp 97.8 F 03/01/18 15:00 Pulse 79 03/01/18 15:00 Resp 16 03/01/18 15:00 BP 110/75 03/01/18 15:00 Pulse Ox 97 03/01/18 15:00 Intake & Output 02/28/18 03/01/18 03/01/18 18:59 06:59 18:59 Intake Total 1300 540 Balance 1300 540 Intake: Intake, IV Titration 1300 Amount Levofloxacin 500Mg-D5w 100 Pmx 500 mg In Dextrose/ Water 1 100ml.bag @ 100 mls/hr IVPB Q24H [facility] Rx#: [id number] Sodium Chloride 0.9% 1, 1200 000 ml @ 75 mls/hr IV . [id number] [facility] Rx#:[id number] Oral 540 Other: Voiding Method Toilet Toilet # Voids 1 2 3 - Exam Constitutional: No acute distress, conversant, pleasant Eyes: Anicteric sclerae, moist conjunctiva, no lid-lag, PERRLA ENMT: NC/AT,Oropharynx clear, no erythema, exudates Neck:Supple, FROM, no masses, or JVD, No carotid bruits; No thyromegaly Lungs: Clear to auscultation, Clear to percussion, Normal respiratory effort, no accessory muscle use Cardiovascular: Heart regular in rate and rhythm, No murmurs, gallops, or rubs no peripheral edema Abdominal: Soft Nontender, nom distended, no guarding, no rebound or rigidity, Normoactive bowel sounds No hepatomegaly, No splenomegaly, No palpable mass No abdominal wall hernia noted Skin: Normal temperature, tone, texture, turgor, No induration No subcutaneous nodules, No rash, lesions, No ulcers Extremities:No digital cyanosis No clubbing, Pedal pulses intact and symmetrical Radial pulses intact and symmetrical Normal gait and station, No calf tenderness Psychiatric: Alert and oriented to person, place and time, Appropriate affect Intact judgement Neuro: Muscles Strength 5/5 in all 4 extremities, Sensation to light touch grossly present throughout, Cranial nerves II-XII grossly intact. No focal sensory deficits - Labs CBC & Chem 7: 02/26/18 03:48 02/27/18 07:48 Labs: Microbiology - Last 24 Hours (Table) 02/26/18 03:48 Blood Culture - Preliminary Blood No Growth after 72 hours 02/27/18 21:50 Gram Stain - Preliminary Sputum Sputum Culture - Preliminary Assessment and Plan Plan: Acute asthma exacerbation with acute bronchitis -Duonebs, flovent, symbicort -Pulmonary recs -Levaquin -Phenergan Multiple sclerosis -Xeomin Adrenal insufficiency -continue cortef ALEXA -S/p hypoglossal nerve stimulator Hypokalemia, resolved Chronic: POTS Fibromyalgia GERD Likely home in 24 hours Discussed with: Patient Anticipated discharge date: [address]: Home A total of 25 minutes was spent on the care of this complex patient more than 50 % of the time was spent in counseling and care coordination
--- NOTE | 2018-03-01 16:49 | PN ---
PROGRESS NOTE DATE OF SERVICE: 03/01/2018 This is a 52-year-old female, well known to me. She has a history of severe chronic bronchial asthma. She failed outpatient therapy. She had a recent bronchoscopy. There was no pneumonia on chest x-ray. The patient also has a history of sleep apnea syndrome, status post hypoglossal nerve stimulator insertion. She has a number of other medical problems, including multiple sclerosis, optic neuritis, adrenal insufficiency, postural orthostatic tachycardia syndrome, autoimmune hepatitis, fibromyalgia, chronic back pain, GERD, and a number of other major medical problems. Anyway, the patient continues to show slow improvement in her asthma exacerbation. She seems depressed today. She is sitting in her chair. I will go ahead and change her medications a bit, increasing her Solu-Medrol and also adding Pulmicort and formoterol to her regimen. Hopefully that will get her turned around. She requested a bronch, but she just recently had one, the results of which all were negative. Current vital signs are reviewed. Her temperature is 97.5, heart rate 76, respiratory rate 16, blood pressure 110/75, mean 86. Room-air saturation is 97%. She is in no acute distress. HEENT examination is grossly unremarkable. Mucous membranes are moist. There are no oral lesions. She does have a bit of a tse face from previous steroid use. Neck is supple. Full range of motion. No adenopathy or thyromegaly. Neck veins are flat. Cardiovascular examination reveals regular rhythm and rate. S1, S2 normal. No S3, S4, murmur. Lungs reveal diminished breath sounds, a few scattered rhonchi. There is slight prolongation on forced maneuver. Breath sounds are equal bilaterally. Abdomen is obese. Bowel sounds are heard. Extremities are intact. No cyanosis, clubbing or edema. Skin without rash. Neurologic examination is brief but nonfocal. Microbiologic studies are negative. Labs are reviewed. Nothing new to report. Medications are reviewed. Again, we added back some Pulmicort and formoterol to her regimen. We also increased her Solu-Medrol to 60 mg q.6 hours. She remains on antibiotic. ASSESSMENT: 1. Acute hypoxemic respiratory failure secondary to an acute exacerbation of severe persistent chronic bronchial asthma. 2. No evidence of pneumonia. 3. Sleep apnea syndrome, intolerant to CPAP, status post hypoglossal nerve stimulator implantation. 4. History of adrenal insufficiency. 5. Multiple sclerosis. 6. Optic neuritis. 7. Postural orthostatic tachycardia syndrome. 8. Autoimmune hepatitis. 9. Fibromyalgia. 10.Chronic back pain. 11.Gastroesophageal reflux disease. PLAN: The patient's medications are adjusted, as mentioned. Labs and x-rays are reviewed. Prognosis is guarded. If she does not improve, I might want to consider repeat bronchoscopy. At this point I am not thinking that that is the right thing to do. She recently had one. All the results are negative. Additional recommendations and suggestions are forthcoming. Prognosis is very guarded. MMODL / IJN: [id number] /
[2018-03-01] MEDS: FORMOTEROL FUMARATE 20 MCG/2 ML NEBU INHALATION SCH (20:19)
[2018-03-01] MEDS: BUDESONIDE 1 MG/2 ML NEBU INHALATION SCH (20:19)
[2018-03-01] MEDS: LEVOFLOXACIN 500MG-D5W PMX 500 MG in DEXTROSE/WATER 1 100ML.BAG IVPB SCH (22:09)
[2018-03-01] MEDS: PANTOPRAZOLE 40 MG TABLET PO SCH (22:10)
[2018-03-01] MEDS: traZODone HCL 50 MG TAB PO SCH (22:10)
[2018-03-01] MEDS: MONTELUKAST 10 MG TAB PO SCH (22:10)
[2018-03-01] MEDS: TOPIRAMATE 25 MG TAB PO SCH (22:16)
[2018-03-02] MEDS: methylPREDNISolone SOD SUCCI 125 MG/2 ML VIAL IV SCH ×3 (07:12→17:10)
[2018-03-02] MEDS: CHOLECALCIFEROL 1,000 UNIT TAB PO SCH (07:13)
[2018-03-02] MEDS: PROMETHAZ-COD 6.25-10 MG/5 ML 5 ML CUP PO PRN (07:13)
[2018-03-02] MEDS: CHOLESTYRAMINE (WITH SUGAR) 4 GM PACKET PO SCH ×2 (07:13→20:24)
[2018-03-02] MEDS: DULoxetine HCL 60 MG CAPSULE.DR PO SCH (07:13)
[2018-03-02] MEDS: FLUTICASONE 50MCG/SPRAY NASAL 16GM EA NOSTRIL SCH ×2 (07:16→20:25)
[2018-03-02] MEDS: IPRATROPIUM-ALBUTEROL 3 ML NEB INHALATION PRN ×2 (09:25→21:24)
[2018-03-02] MEDS: BUDESONIDE 1 MG/2 ML NEBU INHALATION SCH ×2 (09:25→21:24)
[2018-03-02] MEDS: FORMOTEROL FUMARATE 20 MCG/2 ML NEBU INHALATION SCH ×2 (09:26→21:24)
[2018-03-02] MEDS: FLUTICASONE 110 MCG INHALER INHALATION SCH ×2 (09:26→21:24)
[2018-03-02 10:59] LABS: Vitamin B1 58 ug/L (38-122)
--- NOTE | 2018-03-02 15:15 | P.PN ---
Subjective Progress Note Date: 03/02/18 Principal diagnosis: Patient is a 52-year-old female past medical history of asthma, multiple sclerosis, adrenal insufficiency, and obstructive sleep apnea presented to the emergency department due to worsening shortness of breath with nonproductive cough for 2 months. Patient was seen by Dr. Dougherty multiple times throughout this illness she had a bronch approximately 3 weeks ago with minimal improvement of her symptoms. She then saw Dr. Dougherty again 2 days before admission and was placed on prednisone and he called in an antibiotic. Her symptoms did not improve within 24 hours and she presented to the emergency department. In the ER she underwent an extensive evaluation. Her white blood cell count was 6.1, troponin negative, BNP 9, influenza was negative. Chest x- ray revealed no acute process. She was admitted for treatment of her acute exacerbation of asthma and acute bronchitis failed outpatient treatment. She was given 1 dose of IV steroids and placed on IV antibiotics. She was then maintained on her home steroid dosing for her adrenal insufficiency. She was seen by pulmonary maintained on bronchodilators. patient reports that she's not quite back to her baseline, still complain of some shortness of breath with chest congestion and wheezes are much improved. Afebrile overnight. Reports that she had a updraft approximately an hour prior. No acute events overnight. Objective - Vital Signs Vital signs: Vital Signs Temp 98.2 F 03/02/18 07:06 Pulse 80 03/02/18 09:55 Resp 17 03/02/18 07:21 BP 138/85 03/02/18 07:06 Pulse Ox 100 03/02/18 07:06 Intake & Output 03/01/18 03/02/18 03/02/18 18:59 06:59 18:59 Intake Total 540 580 296 Balance 540 580 296 Intake: Intake, IV Titration 100 Amount Levofloxacin 500Mg-D5w 100 Pmx 500 mg In Dextrose/ Water 1 100ml.bag @ 100 mls/hr IVPB Q24H [facility] Rx#: [id number] Oral 540 480 296 Other: Voiding Method Toilet Toilet # Voids 3 2 1 - Exam Constitutional: No acute distress, conversant, pleasant Eyes: Anicteric sclerae, moist conjunctiva, no lid-lag, PERRLA ENMT: NC/AT,Oropharynx clear, no erythema, exudates Neck:Supple, FROM, no masses, or JVD, No carotid bruits; No thyromegaly Lungs: Clear to auscultation, Clear to percussion, Normal respiratory effort, no accessory muscle use Cardiovascular: Heart regular in rate and rhythm, No murmurs, gallops, or rubs no peripheral edema Abdominal: Soft Nontender, nom distended, no guarding, no rebound or rigidity, Normoactive bowel sounds No hepatomegaly, No splenomegaly, No palpable mass No abdominal wall hernia noted Skin: Normal temperature, tone, texture, turgor, No induration No subcutaneous nodules, No rash, lesions, No ulcers Extremities:No digital cyanosis No clubbing, Pedal pulses intact and symmetrical Radial pulses intact and symmetrical Normal gait and station, No calf tenderness Psychiatric: Alert and oriented to person, place and time, Appropriate affect Intact judgement Neuro: Muscles Strength 5/5 in all 4 extremities, Sensation to light touch grossly present throughout, Cranial nerves II-XII grossly intact. No focal sensory deficits - Labs CBC & Chem 7: 02/26/18 03:48 02/27/18 07:48 Labs: Abnormal Lab Results - Last 24 Hours (Table) 02/26/18 Range/Units 18:29 Vitamin B6 2 L (5-50) ug/L Microbiology - Last 24 Hours (Table) 02/27/18 21:50 Gram Stain - Final Sputum Sputum Culture - Final 02/26/18 03:48 Blood Culture - Preliminary Blood No Growth after 96 hours Assessment and Plan (1) Asthma exacerbation Narrative/Plan: Acute asthma exacerbation with acute bronchitis -Duonebs, flovent, symbicort -Pulmonary recs -Levaquin -Phenergan Current Visit: No Status: Acute Code(s): J45.901 - UNSPECIFIED ASTHMA WITH ( ACUTE) EXACERBATION SNOMED Code(s): 301221528 (2) Hypokalemia Narrative/Plan: * resolved after replacement Current Visit: No Status: Resolved Code(s): E87.6 - HYPOKALEMIA SNOMED Code(s): 07834075 (3) Adrenal insufficiency Narrative/Plan: * continue cortef Current Visit: No Status: Acute Code(s): E27.40 - UNSPECIFIED ADRENOCORTICAL INSUFFICIENCY SNOMED Code(s): 023967184 (4) ALEXA (obstructive sleep apnea) Narrative/Plan: -S/p hypoglossal nerve stimulator Current Visit: No Status: Acute Code(s): G47.33 - OBSTRUCTIVE SLEEP APNEA ( ADULT) (PEDIATRIC) SNOMED Code(s): 32560899 (5) Multiple sclerosis Narrative/Plan: Multiple sclerosis -Xeomin Current Visit: No Status: Acute Code(s): G35 - MULTIPLE SCLEROSIS SNOMED Code(s): 18544171
[2018-03-02] MEDS: ALPRAZolam 0.5 MG TAB PO PRN ×2 (15:19→20:35)
--- NOTE | 2018-03-02 16:23 | P.PN ---
Subjective Progress Note Date: 03/02/18 Principal diagnosis: Acute exacerbation of severe persistent bronchial asthma This is a very pleasant 52-year-old female patient of follows with Dr. Dougherty as her primary care physician. She has a history of multiple sclerosis, severe persistent bronchial asthma, peptic neuritis, postural orthostatic tachycardia syndrome (see pots), gastroesophageal reflux disease, fibromyalgia, chronic back pain, obstructive sleep apnea intolerant to CPAP therapy, adrenal insufficiency, migraine cephalgia, hypertension, status post hypoglossal nerve stimulator implantation. She had undergone her last bronchoscopy with BAL in January 2018 no growth in cultures. She presented to Dr. Lucia's office earlier this week with complaints of increasing shortness of breath cough or congestion. She was treated with antibiotics and steroids without much improvement and presented here again to the emergency room for the same. No leukocytosis. Afebrile since admission. Maintaining high O2 saturations in the 90s on room air. Hemodynamically stable. Influenza screen negative. She is seen today in consultation on the regular medical floor. She is awake and alert in no acute distress. Her main complaint is that of shortness of breath and weakness. Stating her MS presents her from expectorating any sputum. She continues with a loose nonproductive cough. She's been initiated on Levaquin, Symbicort, DuoNeb inhalations, Tessalon Perles, Flovent, Cortef, Singulair, Phenergan with codeine. The patient is seen again today 02/27/2018 in follow-up on the regular medical floor. She is awake and alert in no acute distress. She is a bit stronger today compared to yesterday. Less rhonchus spastic and wheezy. Continues to maintain good O2 saturation in the mid 90s on room air. She's afebrile. Hemodynamically stable. Blood cultures reveal no growth. Sodium 141. Potassium 4.3. Creatinine 0.84. Vitamin B12 264. Reevaluated today on 02/28/2018, continues to have intermittent episodes of cough and wheezing. Didn't sleep much last night, patient is maximized on bronchodilators, there is definite improvement, but she is not back to her baseline according to her. Labs were reviewed, she had a relatively normal basic metabolic profile. Influenza screening was negative on admission. Chest x-ray showed no evidence of acute infiltrate. On 03/02/2018 patient seen again on selective care unit, breathing easier, although still has intermittent cough and wheezing. She is maximized on medical treatment, she is on IV steroids, nebulized bronchodilators, Pulmicort, Perforomist, and antibiotics. Afebrile, room air pulse ox is 100%. Antibiotic coverage in the form of Zosyn, blood and sputum cultures show no growth. Today' s labs have been reviewed, BNP was done only, no CBC, relatively unremarkable, fluids a screen was negative. Today patient had apparently called her counselor , and expressed suicidal thoughts, she has been depressed, and had expressed that she would be better off . She normally follows with Dr. Contreras. Her counselor then got a hold of our office correspondent in the pulmonary clinic, alerted Dr. Dougherty about patient's suicidal thoughts. Objective - Vital Signs Vital signs: Vital Signs Temp 98.2 F 03/02/18 07:06 Pulse 80 03/02/18 09:55 Resp 17 03/02/18 07:21 BP 138/85 03/02/18 07:06 Pulse Ox 100 03/02/18 07:06 Intake & Output 03/01/18 03/02/18 03/02/18 18:59 06:59 18:59 Intake Total 540 580 296 Balance 540 580 296 Intake: Intake, IV Titration 100 Amount Levofloxacin 500Mg-D5w 100 Pmx 500 mg In Dextrose/ Water 1 100ml.bag @ 100 mls/hr IVPB Q24H [facility] Rx#: [id number] Oral 540 480 296 Other: Voiding Method Toilet Toilet # Voids 3 2 1 - Exam Physical Exam: Revealed 52-year-old female in no distress. Head: Atraumatic normocephalic. HEENT:[Neck is supple.] [No neck masses.] [No thyromegaly.] [No JVD.] PERRLA, EOMI, no icterus. Chest: [Clear throughout, no crackles, no rhonchi, no wheezes.] Cardiac Exam: [Normal S1 and S2, no S3 gallop, no murmur.] Abdomen: [Soft, nontender, no megaly, no rebound, no guarding, normal bowel sounds.] Extremities: [No clubbing, no edema, no cyanosis.] Neurological Exam: [No focal neurologic deficit.] - Labs CBC & Chem 7: 02/26/18 03:48 02/27/18 07:48 Labs: Abnormal Lab Results - Last 24 Hours (Table) 02/26/18 Range/Units 18:29 Vitamin B6 2 L (5-50) ug/L Microbiology - Last 24 Hours (Table) 02/27/18 21:50 Gram Stain - Final Sputum Sputum Culture - Final 02/26/18 03:48 Blood Culture - Preliminary Blood No Growth after 96 hours Assessment and Plan Plan: Assessment: #1 Acute exacerbation of severe persistent chronic bronchial asthma. Failed outpatient treatment. No pneumonia. #2 Obstructive sleep apnea intolerant to CPAP therapy. Status post hypoglossal nerve stimulator performed June 2017 at [facility]. #3 History of adrenal insufficiency maintained on Cortef in the outpatient setting. #4 Multiple sclerosis. #5 Optic neuritis. #6 History of postural orthostatic tachycardia syndrome (POTS) #7 Autoimmune hepatitis. #8 Fibromyalgia. #9 Chronic back pain. #10 Gastroesophageal reflux disease. #11. Depression, suicidal thoughts Plan: Continue current medical treatment, same dose IV steroids, Levaquin, Pulmicort and Perforomist, patient is improving from pulmonary perspective. Should be able to be discharged home tomorrow. Today she had expressed suicidal thoughts , she had been depressed, feeling down. We will consult Dr. Whitley from psychiatric services for evaluation. We'll continue to follow I performed a history & physical examination of the patient and discussed their management with my nurse practitioner, Vibha Spivey. I reviewed the nurse practitioner's note and agree with the documented findings and plan of care. Lung sounds are positive for clear breath sounds. The findings and the impression was discussed with the patient. I attest to the documentation by the nurse practitioner. Time with Patient: Less than 30
[2018-03-02] MEDS: LEVOFLOXACIN 500MG-D5W PMX 500 MG in DEXTROSE/WATER 1 100ML.BAG IVPB SCH (19:33)
[2018-03-02] MEDS ORDERED: LEVOFLOXACIN 500 MG TAB PO SCH (20:00)
[2018-03-02] MEDS: MONTELUKAST 10 MG TAB PO SCH (20:25)
[2018-03-02] MEDS: traZODone HCL 50 MG TAB PO SCH (20:25)
[2018-03-02] MEDS: PANTOPRAZOLE 40 MG TABLET PO SCH (20:25)
[2018-03-02] MEDS: TOPIRAMATE 25 MG TAB PO SCH (20:25)
[2018-03-02] MEDS: HYDROcodone/APAP 10-325MG 1 EACH TAB PO PRN (20:35)
[2018-03-03] MEDS: methylPREDNISolone SOD SUCCI 125 MG/2 ML VIAL IV SCH ×3 (04:39→13:25)
[2018-03-03] MEDS: IPRATROPIUM-ALBUTEROL 3 ML NEB INHALATION PRN (07:08)
[2018-03-03] MEDS: BUDESONIDE 1 MG/2 ML NEBU INHALATION SCH (07:08)
[2018-03-03 07:09] LABS: Nicotinuric Acid None Detected
[2018-03-03] MEDS: FORMOTEROL FUMARATE 20 MCG/2 ML NEBU INHALATION SCH (07:09)
[2018-03-03] MEDS: FLUTICASONE 110 MCG INHALER INHALATION SCH (07:09)
[2018-03-03] MEDS: HYDROcodone/APAP 10-325MG 1 EACH TAB PO PRN (07:44)
[2018-03-03] MEDS: CHOLECALCIFEROL 1,000 UNIT TAB PO SCH (09:59)
[2018-03-03] MEDS: DULoxetine HCL 60 MG CAPSULE.DR PO SCH (10:00)
[2018-03-03] MEDS: CHOLESTYRAMINE (WITH SUGAR) 4 GM PACKET PO SCH (10:00)
[2018-03-03] MEDS: FLUTICASONE 50MCG/SPRAY NASAL 16GM EA NOSTRIL SCH (10:05)
[2018-03-03] MEDS: ALPRAZolam 0.5 MG TAB PO PRN (10:05)
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
[2018-03-03 14:56] VITALS: BP 130/80; PULSE 86; RESP 19; TEMP 98
--- NOTE | 2018-03-03 15:01 | P.PN ---
Subjective Progress Note Date: 03/03/18 Principal diagnosis: Acute exacerbation of severe persistent bronchial asthma This is a very pleasant 52-year-old female patient of follows with Dr. Dougherty as her primary care physician. She has a history of multiple sclerosis, severe persistent bronchial asthma, peptic neuritis, postural orthostatic tachycardia syndrome (see pots), gastroesophageal reflux disease, fibromyalgia, chronic back pain, obstructive sleep apnea intolerant to CPAP therapy, adrenal insufficiency, migraine cephalgia, hypertension, status post hypoglossal nerve stimulator implantation. She had undergone her last bronchoscopy with BAL in January 2018 no growth in cultures. She presented to Dr. Lucia's office earlier this week with complaints of increasing shortness of breath cough or congestion. She was treated with antibiotics and steroids without much improvement and presented here again to the emergency room for the same. No leukocytosis. Afebrile since admission. Maintaining high O2 saturations in the 90s on room air. Hemodynamically stable. Influenza screen negative. She is seen today in consultation on the regular medical floor. She is awake and alert in no acute distress. Her main complaint is that of shortness of breath and weakness. Stating her MS presents her from expectorating any sputum. She continues with a loose nonproductive cough. She's been initiated on Levaquin, Symbicort, DuoNeb inhalations, Tessalon Perles, Flovent, Cortef, Singulair, Phenergan with codeine. The patient is seen again today 02/27/2018 in follow-up on the regular medical floor. She is awake and alert in no acute distress. She is a bit stronger today compared to yesterday. Less rhonchus spastic and wheezy. Continues to maintain good O2 saturation in the mid 90s on room air. She's afebrile. Hemodynamically stable. Blood cultures reveal no growth. Sodium 141. Potassium 4.3. Creatinine 0.84. Vitamin B12 264. Reevaluated today on 02/28/2018, continues to have intermittent episodes of cough and wheezing. Didn't sleep much last night, patient is maximized on bronchodilators, there is definite improvement, but she is not back to her baseline according to her. Labs were reviewed, she had a relatively normal basic metabolic profile. Influenza screening was negative on admission. Chest x-ray showed no evidence of acute infiltrate. On 03/02/2018 patient seen again on selective care unit, breathing easier, although still has intermittent cough and wheezing. She is maximized on medical treatment, she is on IV steroids, nebulized bronchodilators, Pulmicort, Perforomist, and antibiotics. Afebrile, room air pulse ox is 100%. Antibiotic coverage in the form of Zosyn, blood and sputum cultures show no growth. Today' s labs have been reviewed, BNP was done only, no CBC, relatively unremarkable, fluids a screen was negative. Today patient had apparently called her counselor , and expressed suicidal thoughts, she has been depressed, and had expressed that she would be better off . She normally follows with Dr. Contreras. Her counselor then got a hold of our office nurse practitioner in the pulmonary clinic, alerted Dr. Dougherty about patient's suicidal thoughts. On 03/03/2018 patient seen in follow-up on medical surgical unit. She is awake and alert, in no acute distress, breathing easier, no wheezing, no chest congestion, room air pulse ox is 99%, afebrile. Breathing is improving, patient is ready to be discharged home today from pulmonary perspective, blood and sputum cultures were negative, today's labs showed a sodium of 141, potassium is 4.3, chloride is 113, BUN of 10, and creatinine of 0.84. Patient was seen by psychiatry in regards to her suicidal ideation and was found to be nonsuicidal, and was recommended outpatient follow-up with her psychiatrist Dr. Contreras Objective - Vital Signs Vital signs: Vital Signs Temp 98.0 F 03/03/18 14:25 Pulse 86 03/03/18 14:25 Resp 19 03/03/18 14:25 BP 130/80 03/03/18 14:25 Pulse Ox 94 L 03/03/18 14:25 Intake & Output 03/02/18 03/03/18 03/03/18 18:59 06:59 18:59 Intake Total 296 1427 Balance 296 1427 Intake: Intake, IV Titration 200 Amount Levofloxacin 500Mg-D5w 200 Pmx 500 mg In Dextrose/ Water 1 100ml.bag @ 100 mls/hr IVPB Q24H [facility] Rx#: [id number] Oral 296 1227 Other: Voiding Method Toilet Toilet Toilet # Voids 1 3 - Exam Physical Exam: Revealed 52-year-old female in no distress. Head: Atraumatic normocephalic. HEENT:[Neck is supple.] [No neck masses.] [No thyromegaly.] [No JVD.] PERRLA, EOMI, no icterus. Chest: [Clear throughout, no crackles, no rhonchi, no wheezes.] Cardiac Exam: [Normal S1 and S2, no S3 gallop, no murmur.] Abdomen: [Soft, nontender, no megaly, no rebound, no guarding, normal bowel sounds.] Extremities: [No clubbing, no edema, no cyanosis.] Neurological Exam: [No focal neurologic deficit.] - Labs CBC & Chem 7: 02/26/18 03:48 02/27/18 07:48 Labs: Microbiology - Last 24 Hours (Table) 02/26/18 03:48 Blood Culture - Preliminary Blood No Growth after 120 hours Assessment and Plan Plan: Assessment: #1 Acute exacerbation of severe persistent chronic bronchial asthma. Failed outpatient treatment. No pneumonia. #2 Obstructive sleep apnea intolerant to CPAP therapy. Status post hypoglossal nerve stimulator performed June 2017 at [facility]. #3 History of adrenal insufficiency maintained on Cortef in the outpatient setting. #4 Multiple sclerosis. #5 Optic neuritis. #6 History of postural orthostatic tachycardia syndrome (POTS) #7 Autoimmune hepatitis. #8 Fibromyalgia. #9 Chronic back pain. #10 Gastroesophageal reflux disease. #11. Depression, suicidal thoughts Plan: Psychiatry notes were noted, patient was found not to be suicidal, and was recommended outpatient follow-up with Dr. Contreras. From pulmonary perspective patient is stable, continues to improve. Can go home from pulmonary perspective , she can resume her oral Cortef, 40 in the morning and 20 at night until she sees Dr. Dr. Dougherty in the office, she can resume her Breo-Ellipta, Asmanex, she can finish outpatient course of oral Levaquin. Follow-up with Dr. Dougherty in the office in one week I performed a history & physical examination of the patient and discussed their management with my nurse practitioner, Vibha Spivey. I reviewed the nurse practitioner's note and agree with the documented findings and plan of care. Lung sounds are positive for clear breath sounds. The findings and the impression was discussed with the patient. I attest to the documentation by the nurse practitioner. Time with Patient: Less than 30
--- NOTE | 2018-03-05 12:15 | P.DS ---
Providers Date of admission: 02/26/18 03:52 Expected date of discharge: 03/02/18 Attending physician: Hema Ha MD Consults: 02/26/18 03:53 Consult Physician Urgent Consulting Provider: Seferino Dougherty Consult Reason/Comments: sob Do you want consulting provider notified?: Yes, Notify in am Primary care physician: Seferino Dougherty - Discharge Diagnosis(es) (1) Asthma exacerbation Status: Acute (2) Adrenal insufficiency Status: Acute (3) Hypokalemia Status: Resolved (4) Multiple sclerosis Status: Acute (5) ALEXA (obstructive sleep apnea) Status: Acute Hospital Course: Patient is a 52-year-old female past medical history of asthma, multiple sclerosis, adrenal insufficiency, and obstructive sleep apnea presented to the emergency department due to worsening shortness of breath with nonproductive cough for 2 months. Patient was seen by Dr. Dougherty multiple times throughout this illness she had a bronch approximately 3 weeks ago with minimal improvement of her symptoms. She then saw Dr. Dougherty again 2 days before admission and was placed on prednisone and he called in an antibiotic. Her symptoms did not improve within 24 hours and she presented to the emergency department. In the ER she underwent an extensive evaluation. Her white blood cell count was 6.1, troponin negative, BNP 9, influenza was negative. Chest x- ray revealed no acute process. She was admitted for treatment of her acute exacerbation of asthma and acute bronchitis failed outpatient treatment. She was given 1 dose of IV steroids and placed on IV antibiotics. She was then maintained on her home steroid dosing for her adrenal insufficiency. She was seen by pulmonary maintained on bronchodilators. Psychiatry was consulted due to concern for ongoing depression and suicidal ideation Psychiatry notes were noted, patient was found not to be suicidal, and was recommended outpatient follow-up with Dr. Contreras. From pulmonary perspective patient is stable, continues to improve. Can go home from pulmonary perspective, she can resume her oral Cortef, 40 in the morning and 20 at night until she sees Dr. Dr. Dougherty in the office, she can resume her Breo-Ellipta, Asmanex, she can finish outpatient course of oral Levaquin. Follow-up with Dr. Dougherty in the office in one week. This discharge process took approximately 35 minutes Focused exam Respiratory: Clear to auscultation bilaterally no wheezes or rhonchi, respiration nonlabored Patient Condition at Discharge: Good Plan - Discharge Summary Discharge Rx Participant: No New Discharge Prescriptions: New Levofloxacin [Levaquin] 500 mg PO DAILY 3 Days #3 tab Continue Montelukast [Singulair] 10 mg PO HS Fluticasone/Vilanterol [Breo Ellipta 200-25 Mcg INH] 1 puff INHALATION RT- DAILY Promethaz-Cod 6.25-10 mg/5 ml [Phenergan with Codeine] 5 ml PO Q4-6H PRN PRN Reason: Cough Mometasone Inhalr 220 Mcg/Puff [Asmanex] 2 puff INHALATION RT-DAILY DULoxetine HCL [Cymbalta] 60 mg PO QAM Esomeprazole Magnesium [NexIUM] 40 mg PO HS Fluticasone Nasal [place] [Flonase Nasal [place]] 2 spray EA NOSTRIL BID Prochlorperazine [Compazine] 10 mg PO Q8H PRN PRN Reason: Nausea Xeomin 1 injection IM Q90D ALPRAZolam [Xanax] 0.5 mg PO TID PRN PRN Reason: Anxiety traZODone HCL 150 mg PO HS Cholestyramine (with Sugar) [Questran Packet] 4 gm PO BID Cholecalciferol (Vitamin D3) [Vitamin D3] 12,000 unit PO DAILY Topiramate 50 mg PO HS Fluconazole [Diflucan] 200 mg PO DAILY PRN PRN Reason: ANTIBIOTICS Hydrocortisone [Cortef] 40 mg PO DAILY Hydrocortisone [Cortef] 20 mg PO DAILY@1400 Discharge Medication List Montelukast [Singulair] 10 mg PO HS 07/14/13 [History] Fluticasone/Vilanterol [Breo Ellipta 200-25 Mcg INH] 1 puff INHALATION RT-DAILY 11/19/15 [History] Promethaz-Cod 6.25-10 mg/5 ml [Phenergan with Codeine] 5 ml PO Q4-6H PRN [History] Mometasone Inhalr 220 Mcg/Puff [Asmanex] 2 puff INHALATION RT-DAILY 03/07/16 [ History] DULoxetine HCL [Cymbalta] 60 mg PO QAM 11/13/16 [History] Esomeprazole Magnesium [NexIUM] 40 mg PO HS 01/05/17 [History] Fluticasone Nasal [place] [Flonase Nasal [place]] 2 spray EA NOSTRIL BID 01/05/17 [ History] Prochlorperazine [Compazine] 10 mg PO Q8H PRN 01/05/17 [History] ALPRAZolam [Xanax] 0.5 mg PO TID PRN 12/01/17 [History] Cholecalciferol (Vitamin D3) [Vitamin D3] 12,000 unit PO DAILY 12/01/17 [History ] Cholestyramine (with Sugar) [Questran Packet] 4 gm PO BID 12/01/17 [History] Fluconazole [Diflucan] 200 mg PO DAILY PRN 12/01/17 [History] Topiramate 50 mg PO HS 12/01/17 [History] Xeomin 1 injection IM Q90D 12/01/17 [History] traZODone HCL 150 mg PO HS 12/01/17 [History] Hydrocortisone [Cortef] 20 mg PO DAILY@1400 02/26/18 [History] Hydrocortisone [Cortef] 40 mg PO DAILY 02/26/18 [History] Levofloxacin [Levaquin] 500 mg PO DAILY 3 Days #3 tab 03/03/18 [Rx] Follow up Appointment(s)/Referral(s): Seferino Dougherty DO [Primary Care Provider] - 03/10/18 8:30 am Patient Instructions/Handouts: Shortness of Breath (DC) Discharge Disposition: HOME SELF-CARE
== END 2018-03-03 16:36 | disposition home or self-care (01) | DRG 202 ==
LOC: EC 02:09 → 4SSUR 03:52
PROVIDERS: ADMIT Internal Medicine; ATTEND Internal Medicine
DX: J45.51 Severe persistent asthma with (acute) exacerbation (principal); J96.01 Acute respiratory failure with hypoxia; J44.0 Chronic obstructive pulmonary disease with (acute) lower respiratory infection; E27.40 Unspecified adrenocortical insufficiency; H46.9 Unspecified optic neuritis; R45.851 Suicidal ideations; M87.9 Osteonecrosis, unspecified; J20.9 Acute bronchitis, unspecified; E78.5 Hyperlipidemia, unspecified; E87.6 Hypokalemia; F32.9 Major depressive disorder, single episode, unspecified; F41.9 Anxiety disorder, unspecified; G35 Multiple sclerosis; G47.33 Obstructive sleep apnea (adult) (pediatric); G89.29 Other chronic pain; I10 Essential (primary) hypertension; I49.8 Other specified cardiac arrhythmias; K21.9 Gastro-esophageal reflux disease without esophagitis; K75.4 Autoimmune hepatitis; M79.7 Fibromyalgia; R79.1 Abnormal coagulation profile; Z81.1 Family history of alcohol abuse and dependence; Z82.49 Family history of ischemic heart disease and other diseases of the circulatory system; Z82.5 Family history of asthma and other chronic lower respiratory diseases; Z90.710 Acquired absence of both cervix and uterus; Z96.643 Presence of artificial hip joint, bilateral; Z96.651 Presence of right artificial knee joint; Z62.810 Personal history of physical and sexual abuse in childhood; M54.5 Low back pain; D64.9 Anemia, unspecified; Z88.0 Allergy status to penicillin; Z88.2 Allergy status to sulfonamides; Z88.8 Allergy status to other drugs, medicaments and biological substances; Z88.1 Allergy status to other antibiotic agents; Z91.040 Latex allergy status; Z91.011 Allergy to milk products
CPT/HCPCS: 36415; 71046; 80053; 82550; 82553; 82607; 83735; 83880; 84100; 84207; 84425; 84484; 84591; 85025; 85610; 85730; 87040; 87070; 87205; 87502; 93005; 94640; 94667; 94668; 96361; 96374; 99285

== ENCOUNTER 2018-04-23 06:54 | Day surgery (SDC) | payer MEDICARE ==
[2018-04-23 11:50] VITALS: RESP 24; TEMP 98.5
[2018-04-23] MEDS ORDERED: ATROPINE SULFATE 0.4 MG/ML 1 ML VIAL IM ONE (12:09)
[2018-04-23] MEDS: LACTATED RINGERS 1,000 ML IV SCH ×2 (12:09→12:20)
[2018-04-23] MEDS ORDERED: ALBUTEROL NEBULIZED 2.5 MG/3 ML INHALATION STA (12:11)
[2018-04-23] MEDS ORDERED: LIDOCAINE 2% (PF) 20 MG/ML 5 ML VIAL INHALATION ONE (12:12)
[2018-04-23] MEDS ORDERED: LIDOCAINE VISCOUS 2% 15 ML CUP MUCOUS MEM ONE (12:18)
[2018-04-23] MEDS ORDERED: PROPOFOL 10 MG/ML 20 ML VIAL IV ONE (12:21)
[2018-04-23] MEDS ORDERED: MIDAZOLAM 2 MG/2 ML VIAL ONE (12:21)
[2018-04-23] MEDS ORDERED: LIDOCAINE 2% (PF) 20 MG/ML 10 ML AMP INHALATION STA (12:28)
[2018-04-23] MEDS ORDERED: LIDOCAINE 2% INJ 20 MG/ML INTRATRACH ONE (12:36)
[2018-04-23] MEDS ORDERED: LEVOFLOXACIN 750MG-D5W PMX 750 MG in DEXTROSE/WATER 1 150ML.BAG IVPB STA (12:43)
--- NOTE | 2018-04-23 12:53 | PCN ---
PROCEDURE NOTE PROCEDURE: Bronchoscopy, airway examination, therapeutic lavage, BAL. PRESS OPERATOR APPRENTICE provided general anesthesia/unconscious sedation. There was informed consent. There was universal timeout. The procedure was a bronchoscopy, airway examination, therapeutic lavage, BAL right middle lobe. PREOPERATIVE DIAGNOSIS: Asthma. POSTOPERATIVE DIAGNOSIS: Asthma. PROCEDURE: After the patient was adequately sedated and being fully monitored, the bronchoscope was inserted through the right nostril. It passed through the right nasopharynx into the oropharynx. The hypopharynx was identified and topicalized. Anterior commissure, true cords, false cords, arytenoids, piriform sinuses, right and left vallecula and epiglottis all appeared relatively normal. After topicalization, the bronchoscope was pushed through the glottic opening into the trachea. Trachea appeared normal. Tracheal pastor was sharp. There were minimal secretions noted in the trachea. The right and left mainstem were topicalized. Right upper lobe and its 3 segments, right middle lobe and its 2 segments, right lower lobe and its 5 segments, the left upper lobe proper and its 2 segments, the lingula and its 2 segments and the left lower lobe and its 4 segments, all had similar findings of diffuse mild to moderate bronchitis. There was thin secretions noted throughout. Nothing looked purulent. There was no dominant mass or tumor. There was mild erythema and hyperemia of the airways. The bronchoscope was wedged into the right middle lobe. The BAL took place. The patient tolerated the procedure well and the bronchoscope was withdrawn. The patient will be recovered. I will likely give the patient some IV Solu-Medrol and some IV antibiotic after the procedure. MMODL / IJN: [id number] /
[2018-04-23] MEDS ORDERED: methylPREDNISolone SOD SUCCI 125 MG/2 ML VIAL IVP ONE (13:00)
[2018-04-23] MEDS ORDERED: PROMETHAZ-COD 6.25-10 MG/5 ML 5 ML CUP PO PRN (14:00)
[2018-04-23 14:40] VITALS: BP 107/69; PULSE 100
[2018-04-23 16:26] LABS: Appearance,BF Hazy; Color,BF Colorless
[2018-04-23 16:27] LABS: Nucleated Cells, Body Fluid 15 /uL; RBC, Body Fluid 1230 /uL
== END 2018-04-23 15:14 | disposition home or self-care (01) ==
LOC: ORWHC2ENDO 06:54
PROVIDERS: ATTEND Internal Medicine Critical Care Medicine
DX: J45.901 Unspecified asthma with (acute) exacerbation (principal); M79.7 Fibromyalgia; E27.40 Unspecified adrenocortical insufficiency; G35 Multiple sclerosis; K75.4 Autoimmune hepatitis; E03.9 Hypothyroidism, unspecified; Z82.49 Family history of ischemic heart disease and other diseases of the circulatory system; I95.1 Orthostatic hypotension; H46.9 Unspecified optic neuritis; D64.9 Anemia, unspecified; M19.90 Unspecified osteoarthritis, unspecified site; M87.9 Osteonecrosis, unspecified; K74.60 Unspecified cirrhosis of liver; G47.33 Obstructive sleep apnea (adult) (pediatric); Z79.51 Long term (current) use of inhaled steroids; Z79.52 Long term (current) use of systemic steroids; Z79.899 Other long term (current) drug therapy; Z88.6 Allergy status to analgesic agent; Z88.1 Allergy status to other antibiotic agents; Z91.040 Latex allergy status; Z88.0 Allergy status to penicillin; Z88.2 Allergy status to sulfonamides; Z88.8 Allergy status to other drugs, medicaments and biological substances; Z91.018 Allergy to other foods; Z91.09 Other allergy status, other than to drugs and biological substances
CPT/HCPCS: 94640; 88108; 88305; 89050; 87252; 87070; 87205; 87116; 87102; 87206; 31624; J2001 ×2; J2250; J0461; J2930; J1956; J2704; 87496; 87498; 87502; 87529; 87634; 87798

== ENCOUNTER 2018-05-17 11:58 | Inpatient (IN) | payer MEDICARE ==
[2018-05-17] MEDS ORDERED: NALOXONE 0.4 MG/ML 1 ML VIAL IV PRN (13:59)
[2018-05-17] MEDS ORDERED: ONDANSETRON 4 MG/2 ML VIAL IVP PRN (13:59)
[2018-05-17] MEDS ORDERED: ACETAMINOPHEN TAB 325 MG TAB PO PRN (13:59)
[2018-05-17] MEDS ORDERED: methylPREDNISolone SOD SUCCI 125 MG/2 ML VIAL IV STA (14:03)
[2018-05-17] MEDS ORDERED: ALBUTEROL NEBULIZED 2.5 MG/3 ML INHALATION PRN (14:08)
--- NOTE | 2018-05-17 14:32 | XR ---
EXAMINATION TYPE: XR chest 1V portable DATE OF EXAM: 05/17/2018 COMPARISON: 02/26/2018 HISTORY: Difficulty breathing TECHNIQUE: Single frontal view of the chest is obtained. FINDINGS: There is be a stimulator device with the lead extending cephalad. Mediport catheter noted. Heart size stable. Linear changes left lung base most atelectasis. Apical pleural thickening. No velasquez lure or acute consolidation. No sizable pleural effusion. IMPRESSION: No acute intrathoracic process
[2018-05-17 14:51] LABS: Basophils % (A) 0 %; Eosinophils # (A) 0.1 k/uL (0-0.7); Eosinophils % (A) 1 %; HCT 43.7 % (34.0-46.0); HGB 13.7 gm/dL (11.4-16.0); Hypochromasia Slight; Lymphocytes # (A) 1.7 k/uL (1.0-4.8); Lymphocytes % (A) 16 %; MCH 29.7 pg (25.0-35.0); MCHC 31.3 g/dL (31.0-37.0); Monocytes % (A) 9 %; Neutrophils # (A) 7.6 k/uL (1.3-7.7); Neutrophils % (A) 72 %; Platelet Count 310 k/uL (150-450); RDW 14.3 % (11.5-15.5); WBC 10.5 k/uL (3.8-10.6)
[2018-05-17 15:01] LABS: Albumin 3.8 g/dL (3.5-5.0); Calcium 9.2 mg/dL (8.4-10.2); Potassium 3.7 mmol/L (3.5-5.1); Total Bilirubin 0.5 mg/dL (0.2-1.3); Total Protein 6.7 g/dL (6.3-8.2)
[2018-05-17] MEDS: SODIUM CHLORIDE 0.9% 1,000 ML IV SCH (15:46)
[2018-05-17] MEDS: LEVOFLOXACIN 750MG-D5W PMX 750 MG in DEXTROSE/WATER 1 150ML.BAG IVPB SCH (15:46)
[2018-05-17] MEDS: IPRATROPIUM-ALBUTEROL 3 ML NEB INHALATION SCH ×2 (16:08→20:43)
[2018-05-17] MEDS ORDERED: PROCHLORPERAZINE 10 MG TAB PO PRN (17:18)
[2018-05-17] MEDS ORDERED: MORPHINE SULFATE 2 MG/ML SYRINGE IVP PRN (17:20)
--- NOTE | 2018-05-17 17:25 | P.HPIM ---
History of Present Illness H&P Date: 05/17/18 Chief Complaint: sinus pressure Patient is a 53-year-old female with a past medical history of chronic sinusitis, asthma, multiple sclerosis, adrenal insufficiency, autoimmune hepatitis, fibromyalgia, and obstructive sleep apnea who presented as a direct admission from Dr. Dougherty's office. She has been struggling with shortness of breath, sinus congestion, and postnasal drip for approximately 3 weeks. She underwent a bronchoscopy with Dr. Dougherty on April 23. She then started having sinus difficulties on April 28. She has been taking Levaquin, had a course of C eftin, and now Rocephin. She typically sees Dr. Berkowitz but has been unable to get an appointment with his office. Approximately 6 days ago her shortness of breath increased and it felt as though her sinus infection was moving into her chest. She was seen by pulmonology 4 days ago and was started on IV Solu- Medrol, IV Levaquin, and IV Rocephin through [facility]. She has not had a significant improvement in her symptoms so she therefore was admitted to the hospital. Patient seen and examined at bedside. She states approximately 3 weeks ago she started with sinus pressure, nasal congestion, runny nose, and sore throat. Her course has been as listed above. She now complains of some right facial and ear plain as well. She states that her nasal discharge has been yellow to green and even brown at times. The nasal pressure is getting worse especially over the right maxilla area. It has been not responding to [id number] medications. She states last Thursday she developed significant shortness of breath and wheezing. She's had a cough that is nonproductive. She has had mild fevers at home without significant white night sweats. She's not had much wheezing. She is felt very fatigued and drained for the last week. She also reports decreased urine output. She feels as though she may have lost a couple pounds secondary to her infection. She has been maintained on Cortef 20 mg twice daily prior to starting Solu-Medrol but since has not taken any Cortef. No other complaints currently. Review of Systems Pertinent positives and negatives as discussed in HPI, a complete review of systems was performed and all other systems are negative. Past Medical History Past Medical History: Asthma, COPD, Eye Disorder, Fibromyalgia, GERD/Reflux, Hyperlipidemia, Liver Disease, Neurologic Disorder, Osteoarthritis (OA), Pneumonia, Sleep Apnea/CPAP/BIPAP, Supraventricular Tachycardia (SVT) Additional Past Medical History / Comment(s): Currently being treated for sinus infection, recent L ankle fracture, bronchitis, multiple sclerosis, chronic lumbago, migraines, adrenal insufficiency, POTS, avascular necrosis, bilateral optic neuritis, autoimmune hepatitis, anemia, ALEXA with surgery. History of Any Multi-Drug Resistant Organisms: None Reported Past Surgical History: Bowel Resection, Cholecystectomy, EPS, Hernia Repair, Hysterectomy, Joint Replacement, Orthopedic Surgery, Tonsillectomy Additional Past Surgical History / Comment(s): Multiple bronchoscopies/BALs with last time being 02/05/18, bowel "twisted" with 8 inches removed, bilateral knee arthroscopies, total R knee arthroplasty, bilateral hip arthroplasties, R elbow surgery d/t trauma, L ankle breen/shultz, bilateral foot surgeries-fractured toe/pinned and neuroma removed, R rotator cuff repair, hypoglossal nerve sti mulator ([employer]) for ALEXA, L power port, past picc line, sinus surgery, bilateral blepharoplasties, EGD/colonoscopy, lap Shaan fundoplasty, TTT, stone removed from R salivary gland. Past Anesthesia/Blood Transfusion Reactions: Blood Transfusion Reaction Additional Past Anesthesia/Blood Transfusion Reaction / Comment(s): HX OF BLOOD TRANSFUSION : HAS CARD STATING K ANTIBODY AFTER RECEIVING A TRANSFUSION Smoking Status: Never smoker - Past Family History Mother Family Medical History: Hypertension, Thyroid Disorder Additional Family Medical History / Comment(s): Mother is an alcoholic. Pt has no contact with her mother. Father Family Medical History: COPD, Hypertension Additional Family Medical History / Comment(s): Father at the age of 69yrs from emphysema. He was a smoker. Brother(s) Additional Family Medical History / Comment(s): Brother-AL X2 Medications and Allergies Home Medications Medication Instructions Recorded Confirmed Type Montelukast [Singulair] 10 mg PO HS 07/14/13 05/16/18 History Fluticasone/Vilanterol [Breo 1 puff INHALATION RT-DAILY 11/19/15 05/16/18 History Ellipta 200-25 Mcg INH] Promethaz-Cod 6.25-10 mg/5 ml 5 ml PO Q4-6H PRN 01/12/17 03/24/19 History [Phenergan with Codeine] Mometasone Inhalr 220 Mcg/Puff 2 puff INHALATION RT-DAILY 03/07/16 05/16/18 History [Asmanex] DULoxetine HCL [Cymbalta] 60 mg PO QAM 11/13/16 05/16/18 History Esomeprazole Magnesium [NexIUM] 40 mg PO HS 01/05/17 05/16/18 History Fluticasone Nasal Asher [Flonase 2 spray EA NOSTRIL BID 01/05/17 05/16/18 History Nasal Asher] Prochlorperazine [Compazine] 10 mg PO Q8H PRN 01/05/17 05/16/18 History ALPRAZolam [Xanax] 0.5 mg PO TID PRN 12/01/17 05/16/18 History Cholecalciferol (Vitamin D3) 12,000 unit PO DAILY 12/01/17 05/16/18 History [Vitamin D3] Cholestyramine (with Sugar) 4 gm PO BID 12/01/17 05/16/18 History [Questran Packet] Fluconazole [Diflucan] 200 mg PO DAILY PRN 12/01/17 05/16/18 History Topiramate 50 mg PO HS 12/01/17 05/16/18 History Xeomin 1 injection IM Q90D 12/01/17 05/16/18 History traZODone HCL 150 mg PO HS 12/01/17 05/16/18 History Hydrocortisone [Cortef] 30 mg PO DAILY 02/26/18 05/16/18 History Allergies Allergy/AdvReac Type Severity Reaction Status Date / Time latex Allergy Severe Anaphylaxis Verified 05/17/18 16:22 Sulfa (Sulfonamide Allergy Severe Rash/Hives Verified 05/17/18 16:22 Antibiotics) adhesive Allergy Rash/Hives Verified 05/17/18 16:22 alcohol Allergy Rash/Hives Verified 05/17/18 16:22 [From Mastisol Adhesive] amoxicillin Allergy Rash/Hives Verified 05/17/18 16:22 bupropion [From Wellbutrin] Allergy Unknown Verified 05/17/18 16:22 duloxetine [From Cymbalta] Allergy Unknown Verified 05/17/18 16:23 gabapentin Allergy Unknown Verified 05/17/18 16:26 glatiramer (copolymer 1) Allergy Unknown Verified 05/17/18 16:22 [From Copaxone] gum mastic Allergy Rash/Hives Verified 05/17/18 16:22 [From Mastisol Adhesive] interferon christian (human leuk. Allergy Unknown Verified 05/17/18 16:24 derive interferon beta-1b Allergy Unknown Verified 05/17/18 16:22 [From Betaseron] methyl salicylate Allergy Rash/Hives Verified 05/17/18 16:22 [From Mastisol Adhesive] mold Allergy Unknown Verified 05/17/18 16:22 ragweed pollen Allergy Unknown Verified 05/17/18 16:22 soy Allergy Unknown Verified 05/17/18 16:28 storax Allergy Rash/Hives Verified 05/17/18 16:22 [From Mastisol Adhesive] sulfamethoxazole Allergy Rash/Hives Verified 05/17/18 16:22 [From Bactrim] trimethoprim [From Bactrim] Allergy Rash/Hives Verified 05/17/18 16:22 bupropion HCl AdvReac Severe Rash/Hives Verified 05/17/18 16:22 [From Wellbutrin] gluten AdvReac Severe Nausea & Verified 05/17/18 16:22 Vomiting & Diarrhea interferon beta AdvReac Severe Rash/Hives Verified 05/17/18 16:22 interferon beta-1a AdvReac Severe Rash/Hives Verified 05/17/18 16:22 [From Avonex] lamotrigine [From Lamictal] AdvReac Severe Rash/Hives Verified 05/17/18 16:22 milk AdvReac Severe Nausea & Verified 05/17/18 16:22 Vomiting oxaprozin [From Daypro] AdvReac Severe Rash/Hives Verified 05/17/18 16:22 Penicillins AdvReac Severe Rash/Hives Verified 05/17/18 16:22 azithromycin AdvReac Unknown Rash/Hives, Verified 05/17/18 16:22 RED SKIN, ITCHING doxycycline AdvReac Unknown Rash/Hives Verified 05/17/18 16:22 albumin human AdvReac Rash/Hives Verified 05/17/18 16:22 [From Rebif (with albumin)] dicyclomine [From Bentyl] AdvReac Rash/Hives Verified 05/17/18 16:22 wheat AdvReac Nausea & Verified 05/17/18 16:22 Vomiting & Diarrhea cow's milk Allergy ASTHMA Uncoded 05/16/18 10:19 SYMPTOMS DUST Allergy ASTHMA Uncoded 05/16/18 10:19 SYMPTOMS STERISTRIPS AdvReac Severe BLISTERS Uncoded 05/16/18 10:19 TO SKIN Physical Exam Osteopathic Statement: *. No significant issues noted on an osteopathic structural exam other than those noted in the History and Physical/Consult. Vitals: Vital Signs Temp Pulse Pulse Resp BP Pulse Ox 05/17/18 16:20 84 05/17/18 16:08 82 97 05/17/18 16:00 16 05/17/18 15:00 97.5 F L 93 16 112/78 96 Intake and Output 05/17/18 05/17/18 05/17/18 06:59 14:59 22:59 Other: # Voids 0 # Bowel Movements 0 Weight 93 kg General: Ill appearing, no distress, appears at stated age, obese Derm: Sunken in eyes, scar over right neck, no unusual rashes/lesions no unusual ecchymoses, warm, dry Head: atraumatic, normocephalic, symmetric Eyes: EOMI, no lid lag, anicteric sclera, pupils equal round reactive to light ENT: Nose and ears atraumatic, no thrush, no pharyngeal erythema Neck: No thyromegaly, no cervical lymphadenopathy, trachea midline, supple Mouth: no lip lesion, mucus membranes dry Cardiovascular: S1S2 reg, no murmur, positive posterior tibial pulse bilateral, no edema, capillary refill less than 2 seconds Lungs: Decreased breath sounds bilateral, faint wheeze right base, no rhonchi, no rales , no accessory muscle use Abdominal: soft, nontender to palpation, no guarding, no appreciable organomegaly, normal bowel sounds Ext: no gross muscle atrophy, muscle strength 5 out of 5 in all 4 extremities grossly, no contractures, Neuro: CN II-XI grossly intact, light touch intact all 4 extremities, finger to nose within normal limits, Psych: Alert, oriented, appropriate affect Results CBC & Chem 7: 05/17/18 14:30 05/17/18 14:30 Labs: Abnormal Lab Results - Last 24 Hours (Table) 05/17/18 Range/Units 14:30 Chloride 108 H (98-107) mmol/L Carbon Dioxide 20 L (22-30) mmol/L BUN 19 H (7-17) mg/dL Chest x-ray: report reviewed, image reviewed Thrombosis Risk Factor Assmnt - DVT/VTE Prophylaxis DVT/VTE Prophylaxis: Pharmacologic Prophylaxis ordered - Choose All That Apply Any of the Below Risk Factors Present?: Yes Each Factor Represents 1 point: Abnormal pulmonary function (COPD), Age 41-60 years, Obesity (BMI >25) Other Risk Factors: No Other congenital or acquired thrombophilia - If yes, enter type in comment: No Thrombosis Risk Factor Assessment Total Risk Factor Score: 3 Thrombosis Risk Factor Assessment Level: Moderate Risk Assessment and Plan Assessment: Acute exacerbation of asthma with acute bronchitis failed outpatient treatment Dr. Dougherty's office with multiple bronchodilators, IV steroids, and IV antibiotics -Solumedrol, duonebs, pulm hygiene -Continue rocephin and levaquin - Peroformist and pulmicort - Consult Dr. Thacker Acute sinusitis - allergic to amoxicillin - continue with rocephin and levequin - consult ENT - Flonase and singulair Adrenal insufficiency - off cortef while on solumedrol ALEXA - has stimulator will continue to use HTN, controlled - not on medications - follow blood pressures multiple sclerosis - out patient follow-up Obesity, BMI 31 - likely due to chronic steroid use - outpatient structured weight loss The patient is admitted with an anticipated greater than 2 midnight stay for evaluation of acute exacerbation of asthma failed outpatient treatment Surrogate decision-maker: Brother- Gregg CODE STATUS:Full DVT prophylaxis: Lovenox Discussed with: Patient, Dr. Dougherty's office Anticipated discharge date: 3-[address]: home A total of 65 minutes was spent on the care of this complex patient more than 5 0% of the time was spent in counseling and care coordination.
[2018-05-17 17:39] LABS: Glucose,Whole Blood 85 mg/dL (75-99)
[2018-05-17] MEDS: methylPREDNISolone SOD SUCCI 125 MG/2 ML VIAL IV SCH ×2 (17:54→23:20)
[2018-05-17] MEDS: INSULIN ASPART (NovoLOG) 100 UNIT/ML VIAL SQ SCH ×2 (17:56→21:41)
[2018-05-17] MEDS: HYDROcodone/APAP 7.5-325MG 1 EACH TAB PO PRN (18:00)
[2018-05-17] MEDS: BUDESONIDE 1 MG/2 ML NEBU INHALATION SCH (20:43)
[2018-05-17] MEDS: FORMOTEROL FUMARATE 20 MCG/2 ML NEBU INHALATION SCH (20:43)
[2018-05-17 20:56] LABS: Glucose,Whole Blood 151 mg/dL (75-99)
[2018-05-17] MEDS: CHOLESTYRAMINE (WITH SUGAR) 4 GM PACKET PO SCH (21:35)
[2018-05-17] MEDS: TOPIRAMATE 25 MG TAB PO SCH (21:38)
[2018-05-17] MEDS: MONTELUKAST 10 MG TAB PO SCH (21:38)
[2018-05-17] MEDS: PANTOPRAZOLE 40 MG TABLET PO SCH (21:38)
[2018-05-17] MEDS: traZODone HCL 100 MG TAB PO SCH (21:38)
[2018-05-17] MEDS: ALPRAZolam 0.5 MG TAB PO PRN (21:39)
[2018-05-17] MEDS: PROMETHAZ-COD 6.25-10 MG/5 ML 5 ML CUP PO PRN (21:39)
[2018-05-17] MEDS: FLUTICASONE 50MCG/SPRAY NASAL 16GM EA NOSTRIL SCH (21:40)
[2018-05-18] MEDS: SODIUM CHLORIDE 0.9% 1,000 ML IV SCH ×2 (04:30→16:18)
[2018-05-18] MEDS: methylPREDNISolone SOD SUCCI 125 MG/2 ML VIAL IV SCH ×4 (05:31→22:50)
[2018-05-18] MEDS: FORMOTEROL FUMARATE 20 MCG/2 ML NEBU INHALATION SCH ×2 (07:04→19:40)
[2018-05-18] MEDS: BUDESONIDE 1 MG/2 ML NEBU INHALATION SCH ×2 (07:04→19:40)
[2018-05-18] MEDS: IPRATROPIUM-ALBUTEROL 3 ML NEB INHALATION SCH ×4 (07:04→19:40)
[2018-05-18 07:11] LABS: Glucose,Whole Blood 134 mg/dL (75-99)
[2018-05-18] MEDS: INSULIN ASPART (NovoLOG) 100 UNIT/ML VIAL SQ SCH ×4 (07:20→20:27)
[2018-05-18] MEDS: DULoxetine HCL 60 MG CAPSULE.DR PO SCH (07:35)
[2018-05-18] MEDS: CHOLECALCIFEROL 1,000 UNIT TAB PO SCH (07:35)
[2018-05-18] MEDS: CHOLESTYRAMINE (WITH SUGAR) 4 GM PACKET PO SCH ×2 (07:36→20:26)
[2018-05-18] MEDS: ENOXAPARIN 40 MG/0.4 ML SYRINGE SQ SCH (07:36)
[2018-05-18] MEDS: ALPRAZolam 0.5 MG TAB PO PRN (07:40)
[2018-05-18] MEDS: FLUTICASONE 50MCG/SPRAY NASAL 16GM EA NOSTRIL SCH ×2 (07:51→20:27)
[2018-05-18 09:05] LABS: Appearance,Urine Clear (Clear); Bilirubin,Urine Negative (Negative); Blood,Urine Negative (Negative); Color,Urine Light Yellow; Glucose,Urine (UA) Negative (Negative); Ketones,Urine Negative (Negative); Leukocyte Esterase,Urine Negative (Negative); Nitrite,Urine Negative (Negative); PH, Urine 6.5 (5.0-8.0); Protein,Urine Negative (Negative); Specific Gravity,Urine 1.007 (1.001-1.035); Urobilinogen,Urine <2.0 mg/dL (<2.0)
[2018-05-18 11:28] LABS: Glucose,Whole Blood 124 mg/dL (75-99)
--- NOTE | 2018-05-18 12:37 | P.PN ---
Subjective Progress Note Date: 05/18/18 (delayed charting seen at 9 am ) Principal diagnosis: sinus congestion Patient is a 53-year-old female with a past medical history of chronic sinusitis, asthma, multiple sclerosis, adrenal insufficiency, autoimmune hepatitis, fibromyalgia, and obstructive sleep apnea who presented as a direct admission from Dr. Dougherty's office. She has been struggling with shortness of breath, sinus congestion, and postnasal drip for approximately 3 weeks. She underwent a bronchoscopy with Dr. Dougherty on April 23. She then started having sinus difficulties on April 28. She has been taking Levaquin, had a course of Ceftin, and now Rocephin. She typically sees Dr. Berkowitz but has been unable to get an appointment with his office. Approximately 6 days ago her shortness of breath increased and it felt as though her sinus infection was moving into her chest. She was seen by pulmonology 4 days ago and was started on IV Solu- Medrol, IV Levaquin, and IV Rocephin through [facility]. She has not had a significant improvement in her symptoms so she therefore was admitted to the [facility].e She was maintained on IV steroids, levaquin, rocephin and bronchodilators. Pulmonary and ENT were consulted. Patient seen and examined at bedside. She is still feeling very congested, fatig ued and is having shortness of breath, No nausea, vomiting, diarrhea. Objective - Vital Signs Vital signs: Vital Signs Temp 97.8 F 05/18/18 05:32 Pulse 87 05/18/18 11:29 Resp 16 05/18/18 05:32 BP 107/72 05/18/18 05:32 Pulse Ox 95 05/18/18 07:07 Intake & Output 05/17/18 05/18/18 05/18/18 18:59 06:59 18:59 Weight 93 kg Other: # Voids 0 1 # Bowel Movements 0 - Exam General: ill appearing, no distress, appears at stated age, sunken in eyes Derm: warm, dry Head: atraumatic, normocephalic, symmetric Eyes: EOMI, no lid lag, anicteric sclera Mouth: no lip lesion, mucus membranes moist Cardiovascular: S1S2 reg, no murmur, positive posterior tibial pulse bilateral, Lungs: decreased bs bilateral, no rhonchi, no rales , no accessory muscle use Abdominal: soft, nontender to palpation, no guarding, no appreciable organomegaly Ext: no gross muscle atrophy, no edema, no contractures Neuro: CN II-XI grossly intact, no focal neuro deficits Psych: Alert, oriented, appropriate affect - Labs CBC & Chem 7: 05/17/18 14:30 05/17/18 14:30 Labs: Abnormal Lab Results - Last 24 Hours (Table) 05/17/18 05/17/18 05/18/18 Range/Units 14:30 20:50 07:00 Chloride 108 H (98-107) mmol/L Carbon Dioxide 20 L (22-30) mmol/L BUN 19 H (7-17) mg/dL POC Glucose (mg/dL) 151 H 134 H (75-99) mg/dL 05/18/18 Range/Units 11:27 Chloride (98-107) mmol/L Carbon Dioxide (22-30) mmol/L BUN (7-17) mg/dL POC Glucose (mg/dL) 124 H (75-99) mg/dL Assessment and Plan Assessment: Acute exacerbation of asthma with acute bronchitis failed outpatient treatment Dr. Dougherty's office with multiple bronchodilators, IV steroids, and IV antibiotics -Solumedrol, duonebs, pulm hygiene -Continue rocephin and levaquin - Peroformist and pulmicort -Await pulm recs Acute sinusitis - allergic to amoxicillin - continue with rocephin and levequin - Await ENT recs, consider sinus CT - Flonase and singulair Adrenal insufficiency - off cortef while on solumedrol ALEXA - has stimulator will continue to use HTN, controlled - not on medications - follow blood pressures multiple sclerosis - out patient follow-up Obesity, BMI 31 - likely due to chronic steroid use - outpatient structured weight loss DVT prophylaxis: Lovenox Discussed with: Patient, nursing Anticipated discharge date: 2-[address]: home A total of 25 minutes was spent on the care of this complex patient more than 50% of the time was spent in counseling and care coordination.
[2018-05-18] MEDS: HYDROcodone/APAP 7.5-325MG 1 EACH TAB PO PRN (12:46)
[2018-05-18] MEDS: PROMETHAZ-COD 6.25-10 MG/5 ML 5 ML CUP PO PRN (12:47)
--- NOTE | 2018-05-18 12:54 | CDI ---
Documentation Clarification Form Date: 05/18/2018 12:39:11 PM From: Annemarie Haines RN CCDS Admit Date: 05/17/2018 1:21:00 PM Patient Name: Tiarra Weaver Visit Number: [id number] Discharge Date: ATTENTION: The Clinical Documentation Specialists (CDI) and [facility] Coding Staff appreciate your assistance in clarifying documentation. Please respond to the clarification below the line at the bottom and electronically sign. The CDI & [facility] Coding staff will review the response and follow-up if needed. Please note: Queries are made part of the Legal Health Record. If you have any questions, please contact the author of this message via ITS. Dr. Daphne Evans Asthma is documented in the H & P. History/risk factors: 53 y/o female presents to the ED as a direct admission from Dr. Herring office for shortness of breath and sinus congestion. Clinical Indicators: Medical Hx Chronic sinusitis , Asthma, MS Autoimmune hepatitis; Radiology: CXR no acute intrathoracic process. Vital Signs:112/78 93 97.5 96% 16 Medication: Pulmicort, Rocpehin, Ventolin, Duoneb ,flonase, perforist , Levaquin Solumedrol, Singulair , Consults: ENT, Pulmonary In your professional opinion, can you please further specify the Acute Exacerbation of Asthma with acute bronchitis , if known? Severity * Mild intermittent * Mild persistent * Moderate persistent * Severe persistent * Other, please specify ____ * Unable to determine Form or Type * Cough variant * Childhood * Extrinsic allergic * Idiosyncratic * Intrinsic nonallergic * Late-onset * Mixed * Other, please specify____ * Unable to determine Severe persistent MTDD
--- NOTE | 2018-05-18 14:57 | P.CNPUL ---
History of Present Illness Consult date: 05/18/18 Requesting physician: Daphne Evans Reason for consult: dyspnea Chief complaint: Sinus congestion History of present illness: This is a very pleasant 53-year-old female patient who follows with Dr. Dougherty in our office as her primary care physician. She has a history of multiple sclerosis, severe persistent chronic bronchial asthma, peptic neuritis, postural orthostatic tachycardia syndrome, gastroesophageal reflux disease, chronic sinusitis, fibromyalgia, chronic back pain, obstructive sleep apnea intolerant to CPAP therapy status post hypoglossal nerve stimulator implantation, adrenal insufficiency, migraine cephalgia, hypertension. She has had multiple bronchoscopies with BAL. Her most recent one was 04/23/2018. Cultures all revealed no growth. She was admitted from the office yesterday after failing outpatient treatment for her asthma exacerbation as well as acute on chronic sinusitis. She failed multiple antibiotic therapies. Chest x-ray shows no acute process. White count 10.5. Hemoglobin 13.7. Creatinine 1.01. Urine is clear. Influenza screen negative. She is maintaining O2 saturations up to 100% on room air. She's been afebrile. She is seen today in consultation in the regular medical floor. Awake and alert in no acute distress. She still has ongoing complaints of sinus congestion. ENT has been consulted. Review of Systems REVIEW OF SYSTEMS: CONSTITUTIONAL: Denies any recent significant weight loss or weight gain. EYES: Denies change in vision. EARS, NOSE, MOUTH, THROAT: Positive for sinus congestion. Denies headaches, denies sore throat. CARDIOVASCULAR: Denies chest pain, palpitations or syncopal episodes. RESPIRATORY: Positive for shortness of breath, cough, congestion no hemoptysis. GASTROINTESTINAL: Denies change in appetite, denies abdominal pain GENITOURINARY: Denies hematuria, denies infections. MUSKULOSKELETAL: Denies pain, denies swelling. INTEGUMENTARY: Denies rash, denies eczema. NEUROLOGICAL: Denies recent memory loss, no recent seizure activity. PSYCHIATRIC: Denies anxiety, denies depression. HEMATOLOGIC/LYMPHATIC: Denies anemia, denies enlarged lymph nodes. Past Medical History Past Medical History: Asthma, COPD, Eye Disorder, Fibromyalgia, GERD/Reflux, Hyperlipidemia, Liver Disease, Neurologic Disorder, Osteoarthritis (OA), Pneumonia, Sleep Apnea/CPAP/BIPAP, Supraventricular Tachycardia (SVT) Additional Past Medical History / Comment(s): Currently being treated for sinus infection, recent L ankle fracture, bronchitis, multiple sclerosis, chronic lumbago, migraines, adrenal insufficiency, POTS, avascular necrosis, bilateral optic neuritis, autoimmune hepatitis, anemia, ALEXA with surgery. History of Any Multi-Drug Resistant Organisms: None Reported Past Surgical History: Bowel Resection, Cholecystectomy, EPS, Hernia Repair, Hysterectomy, Joint Replacement, Orthopedic Surgery, Tonsillectomy Additional Past Surgical History / Comment(s): Multiple bronchoscopies/BALs with last time being 02/05/18, bowel "twisted" with 8 inches removed, bilateral knee arthroscopies, total R knee arthroplasty, bilateral hip arthroplasties, R elbow surgery d/t trauma, L ankle breen/shultz, bilateral foot surgeries-fractured toe/pinned and neuroma removed, R rotator cuff repair, hypoglossal nerve stimulator ([employer]) for ALEXA, L power port, past picc line, sinus surgery, bilateral blepharoplasties, EGD/colonoscopy, lap Shaan fundoplasty, TTT, stone removed from R salivary gland. Past Anesthesia/Blood Transfusion Reactions: Blood Transfusion Reaction Additional Past Anesthesia/Blood Transfusion Reaction / Comment(s): HX OF BLOOD TRANSFUSION : HAS CARD STATING K ANTIBODY AFTER RECEIVING A TRANSFUSION Smoking Status: Never smoker - Past Family History Mother Family Medical History: Hypertension, Thyroid Disorder Additional Family Medical History / Comment(s): Mother is an alcoholic. Pt has no contact with her mother. Father Family Medical History: COPD, Hypertension Additional Family Medical History / Comment(s): Father at the age of 69yrs from emphysema. He was a smoker. Brother(s) Additional Family Medical History / Comment(s): Brother-AK X2 Medications and Allergies Home Medications Medication Instructions Recorded Confirmed Type Montelukast [Singulair] 10 mg PO HS 07/14/13 05/17/18 History Fluticasone/Vilanterol [Breo 1 puff INHALATION RT-DAILY 11/19/15 05/17/18 History Ellipta 200-25 Mcg INH] Promethaz-Cod 6.25-10 mg/5 ml 5 ml PO Q4-6H PRN 03/06/16 05/17/18 History [Phenergan with Codeine] Mometasone Inhalr 220 Mcg/Puff 2 puff INHALATION RT-DAILY 03/07/16 05/17/18 History [Asmanex] DULoxetine HCL [Cymbalta] 60 mg PO DAILY 11/13/16 05/17/18 History Esomeprazole Magnesium [NexIUM] 40 mg PO DAILY 01/05/17 05/17/18 History Fluticasone Nasal Dix [Flonase 2 spray EA NOSTRIL DAILY 01/05/17 05/17/18 History Nasal Dix] ALPRAZolam [Xanax] 0.5 mg PO TID PRN 12/01/17 05/17/18 History Cholecalciferol (Vitamin D3) 12,000 unit PO DAILY 12/01/17 05/17/18 History [Vitamin D3] Cholestyramine (with Sugar) 4 gm PO BID 12/01/17 05/17/18 History [Questran Packet] Topiramate 50 mg PO HS 12/01/17 05/17/18 History Xeomin 100 unit IM Q90D 12/01/17 05/17/18 History traZODone HCL 150 mg PO HS 12/01/17 05/17/18 History Hydrocortisone [Cortef] 40 mg PO DAILY 02/26/18 05/17/18 History Albuterol Inhaler [Ventolin Hfa 1 - 2 puff INHALATION RT-Q6H PRN 05/17/18 05/17/18 History Inhaler] Cefuroxime Axetil [Ceftin] 500 mg PO BID 05/17/18 05/17/18 History Cyanocobalamin [Vitamin B-12 1,000 mcg IM Q30D 05/17/18 05/17/18 History Injection] DULoxetine HCL [Cymbalta] 30 mg PO DAILY 05/17/18 05/17/18 History EPINEPHrine [Epipen 2-Ezra] 0.3 mg IM ONCE PRN 05/17/18 05/17/18 History Fluconazole [Diflucan] 200 mg PO DAILY 05/17/18 05/17/18 History Levalbuterol Nebulized [Xopenex 1.25 mg INHALATION RT-QID PRN 05/17/18 05/17/18 History Nebulized] Replesta 50,000iu Oral Wafer 50,000 unit PO Q7D 05/17/18 05/17/18 History Allergies Allergy/AdvReac Type Severity Reaction Status Date / Time latex Allergy Severe Anaphylaxis Verified 05/17/18 16:22 Sulfa (Sulfonamide Allergy Severe Rash/Hives Verified 05/17/18 16:22 Antibiotics) adhesive Allergy Rash/Hives Verified 05/17/18 16:22 alcohol Allergy Rash/Hives Verified 05/17/18 16:22 [From Mastisol Adhesive] amoxicillin Allergy Rash/Hives Verified 05/17/18 16:22 bupropion [From Wellbutrin] Allergy Unknown Verified 05/17/18 16:22 duloxetine [From Cymbalta] Allergy Unknown Verified 05/17/18 16:23 gabapentin Allergy Unknown Verified 05/17/18 16:26 glatiramer (copolymer 1) Allergy Unknown Verified 05/17/18 16:22 [From Copaxone] gum mastic Allergy Rash/Hives Verified 05/17/18 16:22 [From Mastisol Adhesive] interferon christian (human leuk. Allergy Unknown Verified 05/17/18 16:24 derive interferon beta-1b Allergy Unknown Verified 05/17/18 16:22 [From Betaseron] methyl salicylate Allergy Rash/Hives Verified 05/17/18 16:22 [From Mastisol Adhesive] mold Allergy Unknown Verified 05/17/18 16:22 ragweed pollen Allergy Unknown Verified 05/17/18 16:22 storax Allergy Rash/Hives Verified 05/17/18 16:22 [From Mastisol Adhesive] sulfamethoxazole Allergy Rash/Hives Verified 05/17/18 16:22 [From Bactrim] trimethoprim [From Bactrim] Allergy Rash/Hives Verified 05/17/18 16:22 bupropion HCl AdvReac Severe Rash/Hives Verified 05/17/18 16:22 [From Wellbutrin] gluten AdvReac Severe Nausea & Verified 05/17/18 16:22 Vomiting & Diarrhea interferon beta AdvReac Severe Rash/Hives Verified 05/17/18 16:22 interferon beta-1a AdvReac Severe Rash/Hives Verified 05/17/18 16:22 [From Avonex] lamotrigine [From Lamictal] AdvReac Severe Rash/Hives Verified 05/17/18 16:22 oxaprozin [From Daypro] AdvReac Severe Rash/Hives Verified 05/17/18 16:22 Penicillins AdvReac Severe Rash/Hives Verified 05/17/18 16:22 azithromycin AdvReac Unknown Rash/Hives, Verified 05/17/18 16:22 RED SKIN, ITCHING doxycycline AdvReac Unknown Rash/Hives Verified 05/17/18 16:22 albumin human AdvReac Rash/Hives Verified 05/17/18 16:22 [From Rebif (with albumin)] dicyclomine [From Bentyl] AdvReac Rash/Hives Verified 05/17/18 16:22 wheat AdvReac Nausea & Verified 05/17/18 16:22 Vomiting & Diarrhea DUST Allergy ASTHMA Uncoded 05/16/18 10:19 SYMPTOMS STERISTRIPS AdvReac Severe BLISTERS Uncoded 05/16/18 10:19 TO SKIN Physical Exam Vitals: Vital Signs Temp Pulse Pulse Resp BP Pulse Ox 05/18/18 13:16 98.4 F 105 H 16 118/86 100 05/18/18 11:29 87 05/18/18 11:18 85 05/18/18 07:29 84 05/18/18 07:22 86 05/18/18 07:21 86 05/18/18 07:07 80 95 05/18/18 05:32 97.8 F 85 16 107/72 96 05/17/18 21:27 96.5 F L 108 H 22 129/81 98 05/17/18 21:01 78 05/17/18 20:52 80 05/17/18 20:43 80 05/17/18 16:20 84 05/17/18 16:08 82 97 05/17/18 16:00 16 05/17/18 15:00 97.5 F L 93 16 112/78 96 Intake and Output 05/17/18 05/18/18 05/18/18 22:59 06:59 14:59 Other: # Voids 1 1 2 # Bowel Movements 0 Weight 93 kg GENERAL EXAM: Alert, active, comfortable in no apparent distress. On room air. HEAD: Normocephalic. EYES: Normal reaction of pupils, equal size. NOSE: Congested. THROAT: No erythema or exudates. NECK: No masses, no JVD. CHEST: No chest wall deformity. LUNGS: Equal air entry with no crackles, rhonchi or dullness. Very faint end expiratory wheeze. CVS: S1 and S2 normal with no audible murmur, regular rhythm. ABDOMEN: No hepatosplenomegaly, normal bowel sounds, no guarding or rigidity. SPINE: No scoliosis or deformity SKIN: No rashes CENTRAL NERVOUS SYSTEM: No focal deficits, tone is normal in all 4 extremities. EXTREMITIES: There is no peripheral edema. No clubbing, no cyanosis. Peripheral pulses are intact. Results - Laboratory Findings CBC and BMP: 05/17/18 14:30 05/17/18 14:30 Abnormal lab findings: Abnormal Labs 05/17/18 05/17/18 05/18/18 14:30 20:50 07:00 Chloride 108 H Carbon Dioxide 20 L BUN 19 H POC Glucose (mg/dL) 151 H 134 H 05/18/18 11:27 Chloride Carbon Dioxide BUN POC Glucose (mg/dL) 124 H - Diagnostic Findings Chest x-ray: image reviewed (No acute pulmonary process) Assessment and Plan Assessment: Impression: #1 Acute on chronic sinusitis. Failed outpatient therapy. #2 Acute on chronic exacerbation of moderate persistent asthma. Failed outpatient therapy. #3 Obstructive sleep apnea intolerant to CPAP therapy. Status post hypoglossal nerve stimulator performed in June 2017 at [facility]. #4 History of adrenal insufficiency, maintained on Cortef in the outpatient setting. #5 Multiple sclerosis maintained on a bottle she'll. #6 Optic neuritis. #7 History of postural orthostatic tachycardia syndrome. #8 Autoimmune hepatitis. #9 Fibromyalgia. #10 Chronic back pain. #11 Gastroesophageal reflux disease. #12 History of depression. #13 History of multiple and extensive ALLERGIES. Plan: The patient was seen and evaluated by Dr. Thacker. Chest x-ray and labs reviewed. No acute pulmonary process. No leukocytosis. No fever. Lungs have very faint end expiratory wheeze. We'll continue her treatment for her asthma exacerbation. Awaiting ENT consult for her complaints of sinusitis. We'll see the patient on as-needed basis. She'll follow up with Dr. Dougherty post discharge. I, the cosigning physician, performed a history & physical examination of the patient. Lungs sounds with very faint end expiratory wheeze otherwise clear. Maintaining good O2 saturations in the 90s on room air. I discussed the assessment and plan of care with my nurse practitioner, Carmen Matthew. I attest to the above note as dictated by her. Time with Patient: Greater than 30
[2018-05-18] MEDS: LEVOFLOXACIN 750MG-D5W PMX 750 MG in DEXTROSE/WATER 1 150ML.BAG IVPB SCH (16:17)
--- NOTE | 2018-05-18 17:23 | CONS ---
CONSULTATION REASON FOR CONSULTATION: Sinusitis. HISTORY: This is a 53-year-old white female with multiple sclerosis and history of asthma who has had difficulties, who had bronchoscopy April 23 and a few days later developed right maxillary pain and pressure with congestion and purulent nasal discharge from the right nasal cavity. She has been on Levaquin, Ceftin and Rocephin as an outpatient for about 6 days and her symptoms were not improving. Therefore, she was admitted for IV steroids, and antibiotics. She is currently on IV steroids, IV Levaquin and Rocephin. She is still having right maxillary pressure and congestion as well as purulent discharge anteriorly and posteriorly from the right side. She has had a history of sinusitis previously and had sinus surgery twice, once remotely in approximately 1998. She does have a history of allergies also. She did have CT scan of the sinuses in 2017, which was the last one she had, which was negative, but did have allergy testing which showed positive allergies. She deferred allergy immunotherapy at that time. She is having no fever, chills. PAST MEDICAL HISTORY: Is as above as well as fibromyalgia, GERD, Sleep apnea, SVT, liver disease, bronchitis, avascular necrosis, adrenal insufficiency. PAST SURGICAL HISTORY: Bowel surgery, cholecystectomy, herniorrhaphy, hysterectomy, joint replacement, tonsillectomy, sinus surgery, multiple bronchoscopies with BAL, elbow surgery, hypoglossal nerve stimulator for sleep apnea, blepharoplasties, colonoscopy, Shaan fundoplication, right submandibular gland excision. ALLERGIES: TO LATEX, SULFA, ADHESIVE, WELLBUTRIN, CYMBALTA, COPAXONE, INTERFERON, WELLBUTRIN, LAMICTAL, DAYPRO, PENICILLIN, AZITHROMYCIN, DOXYCYCLINE. MEDICATIONS: At home: Singular, Breo, Phenergan, Asmanex, Cymbalta, Nexium, Compazine, Xanax, Diflucan, topiramate, Xeomin, trazodone and Cortef. REVIEW OF SYSTEMS: Noncontributory other than as above. PHYSICAL EXAM: Well-developed adult white female in no acute distress. HEENT. HEAD: Normocephalic and atraumatic. No facial swelling or tenderness or erythema. The ears show both TMs are clear. Membranes unremarkable. Mobile nose. Shows no abnormalities on the left. Overall, good airways bilaterally. Right middle meatus does have some yellow drainage which was cultured. Overall, good nasal airways. Oropharynx and nasopharynx unremarkable. Oropharynx shows no erythema or swelling. Mouth status post tonsillectomy. NECK: Supple without adenopathy or tenderness. No swelling or tenderness. ASSESSMENT: 1. Acute right maxillary sinusitis. 2. Chronic sinusitis. 3. Allergic rhinitis. 4. Asthma. PLAN: The patient did have culture right nasal cavity. Dr. Thacker already ordered a CT scan of the sinuses, which she is going to have done in a short while, going to be transferred soon for this. We will await these results. She currently is on good empiric antibiotics, Levaquin and Rocephin, but has been on these already. Depending on CT scan, may need surgical intervention to at least lavage of the right maxillary sinus depend on findings on CT. We will await these results as well as culture. If there are questions in the meantime, otherwise, please contact me. Followup after CT scan is completed. We will proceed accordingly. MMODL / IJN: [id number] /
[2018-05-18 17:29] LABS: Glucose,Whole Blood 188 mg/dL (75-99)
--- NOTE | 2018-05-18 18:31 | CT ---
EXAMINATION TYPE: CT sinus wo con DATE OF EXAM: 05/18/2018 COMPARISON: 06/11/2016 HISTORY: Chronic sinusitis. CT DLP: 612.2 mGycm. Automated Exposure Control for Dose Reduction was Utilized. TECHNIQUE: CT scan of the sinuses is performed without contrast, axial images are obtained, coronal r eformatted images are also reviewed. FINDINGS: There is apparent old osteotomy medial wall right maxillary sinus. There is opacification l eft side of the sphenoid sinus with minimal wall thickening. There is no expansion. The orbital nevin ns are intact. There is fairly normal aeration of the maxillary ethmoid and frontal sinuses. IMPRESSION: There is left-sided sphenoid sinusitis that is a change compared to old exam. Material in the sinus h as high attenuation consistent with inspissation. No bone destruction.
[2018-05-18 20:23] LABS: Glucose,Whole Blood 135 mg/dL (75-99)
[2018-05-18] MEDS: TOPIRAMATE 25 MG TAB PO SCH (20:26)
[2018-05-18] MEDS: PANTOPRAZOLE 40 MG TABLET PO SCH (20:26)
[2018-05-18] MEDS: MONTELUKAST 10 MG TAB PO SCH (20:26)
[2018-05-18] MEDS: traZODone HCL 100 MG TAB PO SCH (20:26)
--- NOTE | 2018-05-19 05:26 | CONS ---
CONSULTATION ADDENDUM TO PREVIOUS CONSULT The patient had CT scan of the sinuses, which shows some obstruction of the anterior aspect of the right middle meatus between the middle turbinate and lateral nasal wall although it is felt that the patient is symptomatic in this area, although the right maxillary sinus otherwise appears unremarkable. In addition, however, she has almost complete opacification of the left sphenoid sinus with some inspissation. This has been noted previously on CT scans in November 2017 and on comparison apparently on June of 2017 CT scan. I reviewed these findings with the patient this evening and she would be a candidate for a limited revision endoscopic sinus surgery with attention to the right maxillary sinus and left sphenoid sinus. I reviewed this with the patient in detail including the risks, benefits, and alternatives with the risks including, but not inclusive of the risks of general anesthesia, bleeding, infection, scarring, continued symptoms, need for further procedures in the future, injury to the eyes including blindness, fluid leakage, and meningitis. The patient understands these risks and does desire to proceed. We will try to add this to my scheduled line of cases tomorrow. I did discuss this with the anesthesiologist sam . The patient will be n.p.o. at midnight, already ordered. MMODL / IJN: [id number] /
[2018-05-19] MEDS: SODIUM CHLORIDE 0.9% 1,000 ML IV SCH (05:27)
[2018-05-19] MEDS: methylPREDNISolone SOD SUCCI 125 MG/2 ML VIAL IV SCH (05:28)
[2018-05-19 07:03] LABS: Glucose,Whole Blood 121 mg/dL (75-99)
[2018-05-19] MEDS: INSULIN ASPART (NovoLOG) 100 UNIT/ML VIAL SQ SCH ×3 (07:05→16:44)
[2018-05-19] MEDS: ENOXAPARIN 40 MG/0.4 ML SYRINGE SQ SCH (07:05)
[2018-05-19] MEDS: LEVOFLOXACIN 750 MG TAB PO SCH (07:49)
[2018-05-19] MEDS: CHOLESTYRAMINE (WITH SUGAR) 4 GM PACKET PO SCH (07:49)
[2018-05-19] MEDS: CHOLECALCIFEROL 1,000 UNIT TAB PO SCH (07:49)
[2018-05-19] MEDS: FLUTICASONE 50MCG/SPRAY NASAL 16GM EA NOSTRIL SCH ×2 (07:49→22:02)
[2018-05-19] MEDS: DULoxetine HCL 60 MG CAPSULE.DR PO SCH (07:49)
[2018-05-19] MEDS: ALPRAZolam 0.5 MG TAB PO PRN ×2 (07:56→23:03)
[2018-05-19] MEDS: IPRATROPIUM-ALBUTEROL 3 ML NEB INHALATION SCH ×4 (07:58→19:48)
[2018-05-19] MEDS: FORMOTEROL FUMARATE 20 MCG/2 ML NEBU INHALATION SCH ×2 (07:59→19:44)
[2018-05-19] MEDS: BUDESONIDE 1 MG/2 ML NEBU INHALATION SCH ×2 (07:59→19:44)
--- NOTE | 2018-05-19 10:31 | P.PN ---
Subjective Progress Note Date: 05/19/18 Principal diagnosis: sinus congestion Patient is a 53-year-old female with a past medical history of chronic sinusitis, asthma, multiple sclerosis, adrenal insufficiency, autoimmune hepatitis, fibromyalgia, and obstructive sleep apnea who presented as a direct admission from Dr. Dougherty's office. She has been struggling with shortness of breath, sinus congestion, and postnasal drip for approximately 3 weeks. She underwent a bronchoscopy with Dr. Dougherty on April 23. She then started having sinus difficulties on April 28. She has been taking Levaquin, had a course of Ceftin, and now Rocephin. She typically sees Dr. Berkowitz but has been unable to get an appointment with his office. Approximately 6 days ago her shortness of breath increased and it felt as though her sinus infection was moving into her chest. She was seen by pulmonology 4 days ago and was started on IV Solu- Medrol, IV Levaquin, and IV Rocephin through [facility]. She has not had a significant improvement in her symptoms so she therefore was admitted to the hospital. She was maintained on IV steroids, levaquin, rocephin and bronchodilators. Pulmonary and ENT were consulted. Underwent sinus CT which showed sphenoid sinusitis. Plan is for OR today. Will need stress dose steroids due to adrenal insufficiency. Patient seen and examined at bedside. Still feeling fatigued and tired. Lungs much better, no nausea, no vomiting. Loose stools but no theron diarrhea. Objective - Vital Signs Vital signs: Vital Signs Temp 96.9 F L 05/19/18 05:40 Pulse 86 05/19/18 08:21 Resp 18 05/19/18 05:40 BP 131/85 05/19/18 05:40 Pulse Ox 97 05/19/18 07:59 Intake & Output 05/18/18 05/19/18 05/19/18 18:59 06:59 18:59 Intake Total 600 Balance 600 Intake: Oral 600 Other: # Voids 1 1 # Bowel Movements 0 - Exam General: ill appearing, no distress, appears at stated age, sunken in eyes Derm: warm, dry Head: atraumatic, normocephalic, symmetric Eyes: EOMI, no lid lag, anicteric sclera Mouth: no lip lesion, mucus membranes moist Cardiovascular: S1S2 reg, no murmur, positive posterior tibial pulse bilateral, Lungs: CTA bilateral, no rhonchi, no rales , no accessory muscle use Abdominal: soft, nontender to palpation, no guarding, no appreciable organomegaly Ext: no gross muscle atrophy, no edema, no contractures Neuro: CN II-XI grossly intact, no focal neuro deficits Psych: Alert, oriented, appropriate affect - Labs CBC & Chem 7: 05/17/18 14:30 05/17/18 14:30 Labs: Abnormal Lab Results - Last 24 Hours (Table) 05/18/18 05/18/18 05/18/18 Range/Units 11:27 17:09 20:22 POC Glucose (mg/dL) 124 H 188 H 135 H (75-99) mg/dL 05/19/18 Range/Units 06:53 POC Glucose (mg/dL) 121 H (75-99) mg/dL Microbiology - Last 24 Hours (Table) 05/18/18 Unknown Gram Stain - Preliminary Nose Wound Culture - Preliminary 05/17/18 14:49 Blood Culture - Preliminary Blood No Growth after 24 hours 05/17/18 14:30 Blood Culture - Preliminary Blood No Growth after 24 hours Assessment and Plan Assessment: Acute left sphenoid sinusitis, failed out patient treatment. - allergic to amoxicillin - continue with rocephin and levequin - ENT recs appreciated sinus surgery today. Will start stress does steroids due to adrenal insufficiency. Will plan on observing overnight for any signs of adrenal crisis. - Flonase and singulair Acute exacerbation of asthma with acute bronchitis failed outpatient treatment Dr. Dougherty's office with multiple bronchodilators, IV steroids, and IV antibiotics -Solumedrol, duonebs, pulm hygiene -Continue rocephin and levaquin - Peroformist and pulmicort - Pulm recs appreciated. Adrenal insufficiency - start stress dose steroids solucortef 100mg TID for today, then 50 mg TID start for tomorrow. If okay with ENT and no signs of adrenal crisis plan will be for home tomorrow. Would double home cortef dose for a few days. ALEXA - has stimulator will continue to use HTN, controlled - not on medications - follow blood pressures multiple sclerosis - out patient follow-up Obesity, BMI 31 - likely due to chronic steroid use - outpatient structured weight loss DVT prophylaxis: Lovenox Discussed with: Patient, nursing Anticipated discharge date: [address]: home A total of 25 minutes was spent on the care of this complex patient more than 50% of the time was spent in counseling and care coordination.
[2018-05-19] MEDS ORDERED: IV FLUID CONTINUATION 600 ML IV ONE (11:51)
[2018-05-19 12:23] LABS: Glucose,Whole Blood 102 mg/dL (75-99)
[2018-05-19] MEDS ORDERED: HYDROCORTISONE SUCCINATE 100 MG/2 ML VIAL IVP ONE (12:45)
[2018-05-19] MEDS ORDERED: PROPOFOL 10 MG/ML 20 ML VIAL IV ONE (13:25)
[2018-05-19] MEDS ORDERED: MIDAZOLAM 2 MG/2 ML VIAL ONE (13:25)
[2018-05-19] MEDS ORDERED: LIDOCAINE 1% INJ 10MG/ML (20 ML MDV) ONE (13:25)
[2018-05-19] MEDS ORDERED: SUCCINYLCHOLINE CHLORIDE 100 MG/5 ML SYR IV ONE (13:25)
[2018-05-19] MEDS ORDERED: fentaNYL (PF) 50 MCG/ML 2 ML AMP ONE (13:25)
[2018-05-19] MEDS ORDERED: LIDOCAINE 1%-EPI 1:100,000 20 ML VIAL SQ ONE (13:57)
--- NOTE | 2018-05-19 14:38 | P.OP ---
Date of Procedure: 05/19/18 Preoperative Diagnosis: Acute and chronic right maxillary sinusitis Acute and chronic left sphenoid sinusitis Postoperative Diagnosis: Same Procedure(s) Performed: Bilateral endoscopic sinus surgery including right maxillary antrostomy and left sphenoidotomy Anesthesia: GRACE Surgeon: Bruno Mendoza Estimated Blood Loss (ml): 2 Pathology: other (Sinus contents) Condition: stable Disposition: PACU Indications for Procedure: This is a 53-year-old white female whose had difficulties with acute and chronic sinusitis. She was hospitalized for failure of outpatient medical management of her sinusitis. Computed tomography scan did show some obstruction of the right maxillary ostium which is postsurgical previously. It also shows a nearly completely opacified left maxillary sinus which has been present on CT scans incidentally in June and November 2017 but was not present in 2017 Operative Findings: Mucosal contact the right middle turbinate and lateral nasal wall with narrowing of the middle meatus and maxillary ostium on the right, obstruction of the left sphenoid ostium with mucous drainage within the left sphenoid sinus Description of Procedure: Patient was brought in the operative suite and placed in a supine position. The patient underwent induction of general anesthesia oral endotracheal intubation without difficulty. The patient was prepped and draped in usual aseptic fashion with the orbits in the operative field for monitoring case and computed tomography scan on the computer screen for review throughout the case. 1% lidocaine with 1 100,000 epinephrine was infused submucosally lateral nasal wall and anterior tips of the middle turbinates bilaterally. This was left for vasoconstrictive effect. Beginning on the right the middle turbinate was medialized with a [place] elevator. The maxillary ostium was patent although anteriorly there was a shelf of tissue which was then removed with side-biting forceps to enlarge the maxillary ostium. There was some yellow mucous drainage in the maxillary sinus which was suctioned. The ethmoid sinuses appeared patent. A pledget of xerogel nasal dressing was placed in the middle meatus. Good hemostasis was noted. Attention was then turned to the left. The middle turbinate was lateralized minimally in order to access the sphenoid ostium. The face of the sphenoid was visualized and the entellus balloon sinus plasty apparatus was used to access the ostium confirmed visually and then balloon dilation was performed. The mucous drainage within the sinus was suctioned. The sinus was then explored with 0 endoscope showed mucosal thickening. Once this was completed the middle turbinate was medialized with a [place] elevator. The maxillary ostium on the left and ethmoid labyrinths were patent. No packing was placed for dressing on the left. Once this was completed the patient was suctioned in oral gastric fashion. The patient was allowed to emerge from general anesthesia having tolerated procedure well was extubated in the operating suite and transferred to postop recovery area in satisfactory condition.
[2018-05-19] MEDS ORDERED: HYDROmorphone 1 MG/ML 1 ML SYRINGE IVP ONE ×2 (14:54→15:01)
[2018-05-19] MEDS ORDERED: HYDROCORTISONE SUCCINATE 100 MG/2 ML VIAL IV SCH ×2 (16:00→20:00)
[2018-05-19] MEDS: PROMETHAZ-COD 6.25-10 MG/5 ML 5 ML CUP PO PRN (16:40)
[2018-05-19 16:44] LABS: Glucose,Whole Blood 97 mg/dL (75-99)
[2018-05-19 20:01] LABS: Glucose,Whole Blood 103 mg/dL (75-99)
[2018-05-19] MEDS: MONTELUKAST 10 MG TAB PO SCH (21:58)
[2018-05-19] MEDS: traZODone HCL 100 MG TAB PO SCH (21:58)
[2018-05-19] MEDS: PANTOPRAZOLE 40 MG TABLET PO SCH (21:58)
[2018-05-19] MEDS: TOPIRAMATE 25 MG TAB PO SCH (23:03)
[2018-05-20] MEDS: SODIUM CHLORIDE 0.9% 1,000 ML IV SCH ×2 (00:34→09:59)
[2018-05-20] MEDS: CHOLESTYRAMINE (WITH SUGAR) 4 GM PACKET PO SCH ×2 (00:35→10:12)
[2018-05-20] MEDS: INSULIN ASPART (NovoLOG) 100 UNIT/ML VIAL SQ SCH ×3 (00:38→13:49)
[2018-05-20] MEDS: HYDROCORTISONE SUCCINATE 100 MG/2 ML VIAL IV SCH ×2 (04:41→13:49)
[2018-05-20 06:58] LABS: Glucose,Whole Blood 108 mg/dL (75-99)
[2018-05-20] MEDS ORDERED: HYDROCORTISONE SUCCINATE 100 MG/2 ML VIAL IV SCH (08:00)
[2018-05-20] MEDS: BUDESONIDE 1 MG/2 ML NEBU INHALATION SCH (08:15)
[2018-05-20] MEDS: IPRATROPIUM-ALBUTEROL 3 ML NEB INHALATION SCH ×2 (08:15→11:33)
[2018-05-20] MEDS: FORMOTEROL FUMARATE 20 MCG/2 ML NEBU INHALATION SCH (08:15)
[2018-05-20 09:59] VITALS: BP 120/75; RESP 14
[2018-05-20] MEDS: DULoxetine HCL 60 MG CAPSULE.DR PO SCH (10:07)
[2018-05-20] MEDS: ENOXAPARIN 40 MG/0.4 ML SYRINGE SQ SCH (10:08)
[2018-05-20] MEDS: CHOLECALCIFEROL 1,000 UNIT TAB PO SCH (10:08)
[2018-05-20] MEDS: LEVOFLOXACIN 750 MG TAB PO SCH (10:10)
[2018-05-20] MEDS: FLUTICASONE 50MCG/SPRAY NASAL 16GM EA NOSTRIL SCH (10:11)
[2018-05-20] MEDS: HYDROcodone/APAP 7.5-325MG 1 EACH TAB PO PRN (10:21)
[2018-05-20] MEDS: ALPRAZolam 0.5 MG TAB PO PRN (10:21)
[2018-05-20 10:49] LABS: HGB 11.9 gm/dL (11.4-16.0); Hypochromasia Moderate; MCH 29.6 pg (25.0-35.0); MCHC 30.6 g/dL (31.0-37.0); MCV 96.9 fL (80.0-100.0); Mean Platelet Volume 7.6; Platelet Count 267 k/uL (150-450); RBC 4.03 m/uL (3.80-5.40); RDW 14.7 % (11.5-15.5); WBC 11.8 k/uL (3.8-10.6)
[2018-05-20 10:59] LABS: Anion Gap 8 mmol/L; Blood Urea Nitrogen 10 mg/dL (7-17); Calcium 8.1 mg/dL (8.4-10.2); Carbon Dioxide 20 mmol/L (22-30); Chloride 111 mmol/L (98-107); Glucose 109 mg/dL (74-99); Sodium 139 mmol/L (137-145)
[2018-05-20 11:58] LABS: Glucose,Whole Blood 86 mg/dL (75-99)
[2018-05-20 15:32] VITALS: PULSE 77; TEMP 97.9
== END 2018-05-20 15:40 | disposition home or self-care (01) | DRG 202 ==
LOC: 4MS4W 13:21 → 4SSUR 05-19 15:32
PROVIDERS: ADMIT Internal Medicine; ATTEND Internal Medicine
PROC: 099Q8ZZ Drainage of Right Maxillary Sinus, Via Natural or Artificial Opening Endoscopic (ICD-10-PCS; 2018-05-19)
PROC: 099X8ZZ Drainage of Left Sphenoid Sinus, Via Natural or Artificial Opening Endoscopic (ICD-10-PCS; 2018-05-19)
PROC: 099R8ZZ Drainage of Left Maxillary Sinus, Via Natural or Artificial Opening Endoscopic (ICD-10-PCS; principal; 2018-05-19 11:10)
DX: J45.41 Moderate persistent asthma with (acute) exacerbation (principal); J44.0 Chronic obstructive pulmonary disease with (acute) lower respiratory infection; E27.40 Unspecified adrenocortical insufficiency; H46.9 Unspecified optic neuritis; K75.4 Autoimmune hepatitis; G35 Multiple sclerosis; J01.00 Acute maxillary sinusitis, unspecified; J01.30 Acute sphenoidal sinusitis, unspecified; J20.9 Acute bronchitis, unspecified; M79.7 Fibromyalgia; J32.0 Chronic maxillary sinusitis; J32.3 Chronic sphenoidal sinusitis; G47.33 Obstructive sleep apnea (adult) (pediatric); K21.9 Gastro-esophageal reflux disease without esophagitis; E78.5 Hyperlipidemia, unspecified; M19.90 Unspecified osteoarthritis, unspecified site; G43.909 Migraine, unspecified, not intractable, without status migrainosus; E66.9 Obesity, unspecified; I10 Essential (primary) hypertension; F32.9 Major depressive disorder, single episode, unspecified; T38.0X5A Adverse effect of glucocorticoids and synthetic analogues, initial encounter; Z68.31 Body mass index [BMI] 31.0-31.9, adult; Z79.899 Other long term (current) drug therapy; Z79.52 Long term (current) use of systemic steroids; Z87.81 Personal history of (healed) traumatic fracture; Z90.710 Acquired absence of both cervix and uterus; Z90.49 Acquired absence of other specified parts of digestive tract; Z96.651 Presence of right artificial knee joint; Z87.01 Personal history of pneumonia (recurrent); Z96.643 Presence of artificial hip joint, bilateral; Z88.1 Allergy status to other antibiotic agents; Z91.011 Allergy to milk products; Z88.0 Allergy status to penicillin; Z88.2 Allergy status to sulfonamides; Z88.8 Allergy status to other drugs, medicaments and biological substances; Z91.018 Allergy to other foods; Z91.048 Other nonmedicinal substance allergy status; Z82.49 Family history of ischemic heart disease and other diseases of the circulatory system; Z81.1 Family history of alcohol abuse and dependence; Z82.5 Family history of asthma and other chronic lower respiratory diseases
CPT/HCPCS: 70486; 71045; 80048; 80053; 81003; 85025; 85027; 87040; 87070; 87205; 87502; 88305; 94640; 94667; 94760

== ENCOUNTER → 2018-07-01 | Outpatient (CLI) | payer MEDICARE ==
[2018-07-01 16:17] LABS: Basophils % (A) 1 %; Eosinophils # (A) 0.1 k/uL (0-0.7); Eosinophils % (A) 1 %; HCT 39.8 % (34.0-46.0); HGB 12.1 gm/dL (11.4-16.0); Hypochromasia Moderate; Lymphocytes # (A) 1.5 k/uL (1.0-4.8); Lymphocytes % (A) 23 %; MCH 29.4 pg (25.0-35.0); MCHC 30.4 g/dL (31.0-37.0); MCV 96.7 fL (80.0-100.0); Mean Platelet Volume 6.8; Monocytes # (A) 0.5 k/uL (0-1.0); Monocytes % (A) 8 %; Neutrophils # (A) 4.1 k/uL (1.3-7.7); Neutrophils % (A) 64 %; Platelet Count 317 k/uL (150-450); RBC 4.12 m/uL (3.80-5.40); RDW 14.8 % (11.5-15.5); WBC 6.4 k/uL (3.8-10.6)
[2018-07-02 00:53] LABS: ALT 13 U/L (8-44); AST 19 U/L (13-35)
== END | disposition home or self-care (01) ==
LOC: LABWHC1 15:23
PROVIDERS: ATTEND Psychiatry & Neurology Neurology
DX: G35 Multiple sclerosis (principal)
CPT/HCPCS: 36415; 84450; 84460; 85025

== ENCOUNTER → 2018-07-27 | Outpatient (CLI) | payer MEDICARE ==
[2018-07-27 16:26] LABS: Calcium 8.8 mg/dL (8.7-10.3)
[2018-07-27 16:51] LABS: T4, Free (Free Thyroxine) 0.8 ng/dL (0.80-1.80)
== END | disposition home or self-care (01) ==
LOC: LABWHC1 07:43
PROVIDERS: ATTEND Internal Medicine Endocrinology, Diabetes & Metabolism
DX: E55.9 Vitamin D deficiency, unspecified (principal); M89.9 Disorder of bone, unspecified; R73.03 Prediabetes
CPT/HCPCS: 36415; 82306; 82310; 84439; 84443

== ENCOUNTER → 2018-08-05 | Outpatient (CLI) | payer MEDICARE ==
--- NOTE | 2018-08-05 11:47 | FL ---
EXAMINATION TYPE: FL barium swallow w video DATE OF EXAM: 08/05/2018 MODIFIED SWALLOW / DEGLUTITION STUDY CLINICAL HISTORY: Dysphagia. History of multiple sclerosis. TECHNIQUE: Deglutition study is performed utilizing thin liquid barium, honey and nectar thick liqui d barium, barium thick pudding, and barium coated cracker. A total of 2 minutes 5 seconds of fluorosc opic time was utilized during procedure. 0 spot images are saved to PACS. COMPARISON: None. FINDINGS: The oral and pharyngeal phases show satisfactory initiation with all modalities tested. Sat isfactory mastication is seen with solid modalities tested. There is diminished epiglottis inversion and diminished cricopharyngeal motility There is no evidence of penetration or aspiration with any m odality tested. Mild to moderate pharyngeal residue was appreciated. Overlying vagus stimulator noted submandibular level. IMPRESSION: No penetration or aspiration observed. Please refer to speech therapist notes for furthe r details if necessary.
== END | disposition home or self-care (01) ==
LOC: RADFLMAIN 10:57
PROVIDERS: ATTEND Otolaryngology
DX: R13.10 Dysphagia, unspecified (principal)
CPT/HCPCS: 74230

== ENCOUNTER 2018-08-15 12:19 | Emergency (ER) | payer MEDICARE ==
[2018-08-15 12:34] VITALS: BP 96/61; PULSE 70; RESP 18; TEMP 97.7
[2018-08-15] MEDS ORDERED: ONDANSETRON ODT 4 MG TAB PO STA (12:58)
--- NOTE | 2018-08-15 13:06 | ED ---
Back Pain HPI - General Chief Complaint: Back Pain/Injury Stated Complaint: back pain Time Seen by Provider: 08/15/18 12:32 Source: patient, RN notes reviewed Mode of arrival: ambulatory Limitations: no limitations - History of Present Illness Initial Comments: This a 53-year-old female presents emergency Department chief complaint of low back pain. Patient states she does have a history of L4 L5 S1 issues. Patient states that she was laying in her bed yesterday when she woke up and states that she sneezed when she was laying her back. Patient states she felt a pop in her low back and states that she's had excruciating pain in her symptoms. Patient states is radiating down her right leg. She does admit that she also had multiple right knee surgeries. Patient states that she has no loss of bowel bladder control. Patient denies any abdominal pain including vomiting diarrhea, fevers chills does admit to some nausea no dysuria no hematuria. Patient was seen at [facility] was advised to do stretches and was given Toradol no other medications. - Related Data Home Medications Medication Instructions Recorded Confirmed Montelukast [Singulair] 10 mg PO HS 07/14/13 08/02/18 Fluticasone/Vilanterol [Breo 1 puff INHALATION RT-DAILY 11/19/15 08/02/18 Ellipta 200-25 Mcg INH] Promethaz-Cod 6.25-10 mg/5 ml 5 ml PO Q4-6H PRN 03/06/16 08/02/18 [Phenergan with Codeine] Mometasone Inhalr 220 Mcg/Puff 2 puff INHALATION RT-DAILY 03/07/16 08/02/18 [Asmanex] DULoxetine HCL [Cymbalta] 60 mg PO DAILY 11/13/16 08/02/18 Esomeprazole Magnesium [NexIUM] 40 mg PO DAILY 01/05/17 08/02/18 Fluticasone Nasal [place] [Flonase 2 spray EA NOSTRIL DAILY 01/05/17 08/02/18 Nasal [place]] ALPRAZolam [Xanax] 0.5 mg PO TID PRN 12/01/17 08/02/18 Cholecalciferol (Vitamin D3) 12,000 unit PO DAILY 12/01/17 08/02/18 [Vitamin D3] Cholestyramine (with Sugar) 4 gm PO BID 12/01/17 08/02/18 [Questran Packet] Topiramate 50 mg PO HS 12/01/17 08/02/18 Xeomin 100 unit IM Q90D 12/01/17 08/02/18 traZODone HCL 150 mg PO HS 12/01/17 08/02/18 Hydrocortisone [Cortef] 40 mg PO DAILY 02/26/18 08/02/18 Albuterol Inhaler [Ventolin Hfa 1 - 2 puff INHALATION RT-Q6H PRN 05/17/18 08/02/18 Inhaler] Cyanocobalamin [Vitamin B-12 1,000 mcg IM Q30D 05/17/18 08/02/18 Injection] EPINEPHrine [Epipen 2-Ezra] 0.3 mg IM ONCE PRN 05/17/18 08/02/18 Fluconazole [Diflucan] 200 mg PO DAILY 05/17/18 08/02/18 Levalbuterol Nebulized [Xopenex 1.25 mg INHALATION RT-QID PRN 05/17/18 08/02/18 Nebulized] Replesta 50,000iu Oral Wafer 50,000 unit PO Q7D 05/17/18 08/02/18 Previous Rx's Medication Instructions Recorded Levofloxacin [Levaquin] 750 mg PO DAILY #7 tab 05/20/18 Hydrocodone/Acetaminophen [[place] 1 tab PO Q6HR PRN #12 tab 08/15/18 5-325] Ibuprofen [Motrin] 600 mg PO Q8HR PRN #20 tab 08/15/18 Methocarbamol [Robaxin] 500 mg PO TID PRN #15 tab 08/15/18 Allergies Allergy/AdvReac Type Severity Reaction Status Date / Time latex Allergy Severe Anaphylaxis Verified 08/15/18 12:28 Sulfa (Sulfonamide Allergy Severe Rash/Hives Verified 08/15/18 12:28 Antibiotics) adhesive Allergy Rash/Hives Verified 08/15/18 12:28 alcohol Allergy Rash/Hives Verified 08/15/18 12:28 [From Mastisol Adhesive] amoxicillin Allergy Rash/Hives Verified 08/15/18 12:28 bupropion [From Wellbutrin] Allergy Unknown Verified 08/15/18 12:28 duloxetine [From Cymbalta] Allergy Unknown Verified 08/15/18 12:28 gabapentin Allergy Unknown Verified 08/15/18 12:28 glatiramer (copolymer 1) Allergy Unknown Verified 08/15/18 12:28 [From Copaxone] gum mastic Allergy Rash/Hives Verified 08/15/18 12:28 [From Mastisol Adhesive] interferon christian (human leuk. Allergy Unknown Verified 08/15/18 12:28 derive interferon beta-1b Allergy Unknown Verified 08/15/18 12:28 [From Betaseron] methyl salicylate Allergy Rash/Hives Verified 08/15/18 12:28 [From Mastisol Adhesive] mold Allergy Unknown Verified 08/15/18 12:28 ragweed pollen Allergy Unknown Verified 08/15/18 12:28 storax Allergy Rash/Hives Verified 08/15/18 12:28 [From Mastisol Adhesive] sulfamethoxazole Allergy Rash/Hives Verified 08/15/18 12:28 [From Bactrim] trimethoprim [From Bactrim] Allergy Rash/Hives Verified 08/15/18 12:28 bupropion HCl AdvReac Severe Rash/Hives Verified 08/15/18 12:28 [From Wellbutrin] gluten AdvReac Severe Nausea & Verified 08/15/18 12:28 Vomiting & Diarrhea interferon beta AdvReac Severe Rash/Hives Verified 08/15/18 12:28 interferon beta-1a AdvReac Severe Rash/Hives Verified 08/15/18 12:28 [From Avonex] lamotrigine [From Lamictal] AdvReac Severe Rash/Hives Verified 08/15/18 12:28 oxaprozin [From Daypro] AdvReac Severe Rash/Hives Verified 08/15/18 12:28 Penicillins AdvReac Severe Rash/Hives Verified 08/15/18 12:28 azithromycin AdvReac Unknown Rash/Hives, Verified 08/15/18 12:28 RED SKIN, ITCHING doxycycline AdvReac Unknown Rash/Hives Verified 08/15/18 12:28 albumin human AdvReac Rash/Hives Verified 08/15/18 12:28 [From Rebif (with albumin)] dicyclomine [From Bentyl] AdvReac Rash/Hives Verified 08/15/18 12:28 wheat AdvReac Nausea & Verified 08/15/18 12:28 Vomiting & Diarrhea DUST Allergy ASTHMA Uncoded 08/15/18 12:28 SYMPTOMS STERISTRIPS AdvReac Severe BLISTERS Uncoded 08/15/18 12:28 TO SKIN Review of Systems ROS Statement: Those systems with pertinent positive or pertinent negative responses have been documented in the HPI. ROS Other: All systems not noted in ROS Statement are negative. Past Medical History Past Medical History: No Reported History Additional Past Medical History / Comment(s): Bronchitis, multiple sclerosis, chronic lumbago, migraines, adrenal insufficiency, POTS, avascular necrosis, bilateral optic neuritis, autoimmune hepatitis, anemia, ALEXA with surgery. History of Any Multi-Drug Resistant Organisms: None Reported Past Surgical History: Bowel Resection, Cholecystectomy, EPS, Hernia Repair, Hysterectomy, Joint Replacement, Orthopedic Surgery, Tonsillectomy Additional Past Surgical History / Comment(s): Multiple bronchoscopies/BALs with last time being 02/05/18, bowel "twisted" with 8 inches removed, bilateral knee arthroscopies, total R knee arthroplasty, bilateral hip arthroplasties, R elbow surgery d/t trauma, L ankle breen/shultz, bilateral foot surgeries-fractured toe/pinned and neuroma removed, R rotator cuff repair, hypoglossal nerve stimulator ([employer]spire) for ALEXA, L power port, past picc line, sinus surgery, bilateral blepharoplasties, EGD/colonoscopy, lap Shaan fundoplasty, TTT, stone removed from R salivary gland. Past Anesthesia/Blood Transfusion Reactions: Blood Transfusion Reaction Additional Past Anesthesia/Blood Transfusion Reaction / Comment(s): HX OF BLOOD TRANSFUSION : HAS CARD STATING K ANTIBODY AFTER RECEIVING A TRANSFUSION Past Psychological History: Anxiety, Depression Smoking Status: Never smoker Past Alcohol Use History: Rare Past Drug Use History: Marijuana - Past Family History Mother Family Medical History: Hypertension, Thyroid Disorder Additional Family Medical History / Comment(s): Mother is an alcoholic. Pt has no contact with her mother. Father Family Medical History: COPD, Hypertension Additional Family Medical History / Comment(s): Father at the age of 69yrs from emphysema. He was a smoker. Brother(s) Additional Family Medical History / Comment(s): Brother-NM X2 General Exam Limitations: no limitations General appearance: alert, in no apparent distress Head exam: Present: atraumatic, normocephalic, normal inspection Eye exam: Present: normal appearance, PERRL, EOMI. Absent: scleral icterus, conjunctival injection, periorbital swelling ENT exam: Present: normal exam, normal oropharynx, mucous membranes moist Respiratory exam: Present: normal lung sounds bilaterally. Absent: respiratory distress, wheezes, rales, rhonchi, stridor Cardiovascular Exam: Present: regular rate, normal rhythm, normal heart sounds. Absent: systolic murmur, diastolic murmur, rubs, gallop, clicks GI/Abdominal exam: Present: soft, normal bowel sounds. Absent: distended, tenderness, guarding, rebound, rigid Course Vital Signs 08/15/18 12:26 Temperature 97.7 F Pulse Rate 70 Respiratory 18 Rate Blood Pressure 96/61 O2 Sat by Pulse 100 Oximetry Medical Decision Making - Medical Decision Making 53-year-old female presented for low back pain. Patient x-ray which is negative for acute abnormality I did feel this is more muscular but patient requested imaging. Patient will be discharged with pain meds, anti-inflammatories and muscle relaxers. Patient will follow-up with PCP and orthopedics and return for any worsening symptoms. Disposition Clinical Impression: Lumbar strain Disposition: HOME SELF-CARE Condition: Stable Instructions (If sedation given, give patient instructions): Acute Low Back Pain (ED) Additional Instructions: Please return to the Emergency Department if symptoms worsen or any other concerns. Prescriptions: Ibuprofen [Motrin] 600 mg PO Q8HR PRN #20 tab PRN Reason: Pain Hydrocodone/Acetaminophen [[place] 5-325] 1 tab PO Q6HR PRN #12 tab PRN Reason: Pain Methocarbamol [Robaxin] 500 mg PO TID PRN #15 tab PRN Reason: muscle spasms Is patient prescribed a controlled substance at d/c from ED?: Yes When asked, does pt state using other controlled substances?: No If prescribed controlled substance>3 days was MAPS reviewed?: Prescribed <3 Days If opioid is for acute pain is fill amount 7 days or less?: Yes If Rx opioid, was Start Talking consent form obtained?: Yes Referrals: Seferino Dougherty DO [Primary Care Provider] - 1-2 days Gabby Lang DO [Doctor of Osteopathic Medicine] - 1-2 days Time of Disposition: 13:53
--- NOTE | 2018-08-15 13:42 | XR ---
EXAMINATION TYPE: XR lumbosacral spine min 4V , 5 VIEWS DATE OF EXAM ORDERED: 08/15/2018 HISTORY: Pain. COMPARISON: Previous study dated 03/19/2015. FINDINGS: There has been a previous cholecystectomy. Vertebral body height and alignment are maintained. There is no spondylolysis or spondylolisthesis. D isc spaces are reasonably well-maintained. The facets are unremarkable. The pedicles are intact. IMPRESSION: NO ACUTE OSSEOUS LESION.
== END 2018-08-15 13:59 | disposition home or self-care (01) ==
LOC: EC 12:19
DX: S39.012A Strain of muscle, fascia and tendon of lower back, initial encounter (principal); G43.909 Migraine, unspecified, not intractable, without status migrainosus; F41.9 Anxiety disorder, unspecified; F32.9 Major depressive disorder, single episode, unspecified; Z96.651 Presence of right artificial knee joint; Z96.643 Presence of artificial hip joint, bilateral; Z79.51 Long term (current) use of inhaled steroids; Z79.52 Long term (current) use of systemic steroids; Z79.899 Other long term (current) drug therapy; Z91.040 Latex allergy status; Z88.2 Allergy status to sulfonamides; Z91.048 Other nonmedicinal substance allergy status; Z88.0 Allergy status to penicillin; Z88.8 Allergy status to other drugs, medicaments and biological substances; Z91.018 Allergy to other foods; Z88.1 Allergy status to other antibiotic agents
CPT/HCPCS: 72110; 99283

== ENCOUNTER 2018-09-06 16:06 | Inpatient (IN) | payer MEDICARE ==
[2018-09-06] MEDS ORDERED: MORPHINE SULFATE 4 MG/ML SYRINGE IV STA (16:55)
[2018-09-06] MEDS ORDERED: ONDANSETRON 4 MG/2 ML VIAL IVP STA (16:55)
[2018-09-06] MEDS ORDERED: SODIUM CHLORIDE 0.9% 1,000 ML IV STA (16:55)
[2018-09-06 17:24] LABS: Basophils % (A) 1 %; Eosinophils # (A) 0.1 k/uL (0-0.7); Eosinophils % (A) 2 %; HCT 37.8 % (34.0-46.0); HGB 12.1 gm/dL (11.4-16.0); Lymphocytes # (A) 1.1 k/uL (1.0-4.8); Lymphocytes % (A) 24 %; MCH 29.2 pg (25.0-35.0); MCHC 32.1 g/dL (31.0-37.0); MCV 91.1 fL (80.0-100.0); Mean Platelet Volume 7.4; Monocytes # (A) 0.6 k/uL (0-1.0); Monocytes % (A) 13 %; Neutrophils # (A) 2.7 k/uL (1.3-7.7); Neutrophils % (A) 57 %; Platelet Count 259 k/uL (150-450); RBC 4.15 m/uL (3.80-5.40); RDW 14.5 % (11.5-15.5); WBC 4.8 k/uL (3.8-10.6)
[2018-09-06 17:25] LABS: Appearance,Urine Clear (Clear); Bilirubin,Urine Negative (Negative); Blood,Urine Negative (Negative); Color,Urine Colorless; Glucose,Urine (UA) Negative (Negative); Ketones,Urine Negative (Negative); Leukocyte Esterase,Urine Negative (Negative); Nitrite,Urine Negative (Negative); Protein,Urine Negative (Negative); Specific Gravity,Urine 1.002 (1.001-1.035); Urobilinogen,Urine <2.0 mg/dL (<2.0)
[2018-09-06 17:29] LABS: Prothrombin Time 10.3 sec (9.0-12.0)
--- NOTE | 2018-09-06 17:46 | ED ---
Abdominal Pain HPI - General Chief Complaint: Abdominal Pain Stated Complaint: abdominal pain, N/D, abnormal labs, Hx GI issues Time Seen by Provider: 09/06/18 16:27 Source: patient Mode of arrival: ambulatory Limitations: no limitations - History of Present Illness Initial Comments: The patient is a 53-year-old female who presents to the emergency room with complaint of acute on chronic abdominal pain. The patient's reports right upper quadrant abdominal pain with radiation to her right flank. She describes it as a sharp shooting sensation. She has been seeing a GI doctor at [facility] her chronic abdominal pain. Recently she saw him last week and had stool studies performed. States that after her visit she developed worsening of the right upper quadrant pain with worsening diarrhea. Denies any melanotic stools or hematochezia. She reports nausea with decreased appetite. No vomiting. Denies any changes in her urination to include dysuria, hematuria or difficulty voiding. The patient called her physician at [facility]. She states that he disclosed to her that she had a high stool calprotectin level of 162 and that she needs a colonoscopy to rule out inflammatory bowel disease. Patient reports that the GI physician instructed her to go to her local ER as he would be unable to perform this study for 3 weeks in the outpatient setting. Her last colonoscopy was 3 years ago and reports it was normal. She denies any chest pa in or shortness of breath. No ripping or tearing sensation to her back. Denies he weakness in her lower extremities. No associated fevers or chills. There are no other alleviating, precipitating or modifying factors - Related Data Home Medications Medication Instructions Recorded Confirmed Montelukast [Singulair] 10 mg PO HS 07/14/13 09/06/18 Fluticasone/Vilanterol [Breo 1 puff INHALATION RT-DAILY 11/19/15 09/06/18 Ellipta 200-25 Mcg INH] Mometasone Inhalr 220 Mcg/Puff 2 puff INHALATION RT-DAILY 03/07/16 09/06/18 [Asmanex] DULoxetine HCL [Cymbalta] 60 mg PO DAILY 11/13/16 09/06/18 Esomeprazole Magnesium [NexIUM] 40 mg PO DAILY 01/05/17 09/06/18 Fluticasone Nasal Corona [Flonase 2 spray EA NOSTRIL BID 01/05/17 09/06/18 Nasal Corona] ALPRAZolam [Xanax] 0.5 mg PO TID PRN 12/01/17 09/06/18 Cholecalciferol (Vitamin D3) 12,000 unit PO DAILY 12/01/17 09/06/18 [Vitamin D3] Cholestyramine (with Sugar) 4 gm PO BID 12/01/17 09/06/18 [Questran Packet] Xeomin 100 unit IM Q90D 12/01/17 09/06/18 traZODone HCL 150 mg PO HS 12/01/17 09/06/18 Ergocalciferol (Vitamin D2) 50,000 unit PO FR 09/06/18 09/06/18 [Drisdol] Fluconazole [Diflucan] 200 mg PO DAILY PRN 09/06/18 09/06/18 Hydrocortisone [Cortef] 10 mg PO DAILY 09/06/18 09/06/18 Levothyroxine Sodium [Synthroid] 50 mcg PO DAILY 09/06/18 09/06/18 Prochlorperazine [Compazine] 10 mg PO TID PRN 09/06/18 09/06/18 Topiramate [Topamax] 100 mg PO HS 09/06/18 09/06/18 Previous Rx's Medication Instructions Recorded HYDROmorphone [Dilaudid] 4 mg PO Q4H PRN #36 tab 09/10/18 Allergies Allergy/AdvReac Type Severity Reaction Status Date / Time latex Allergy Severe Anaphylaxis Verified 09/06/18 19:46 Sulfa (Sulfonamide Allergy Severe Rash/Hives Verified 09/06/18 19:46 Antibiotics) adhesive Allergy Rash/Hives Verified 09/06/18 19:46 alcohol Allergy Rash/Hives Verified 09/06/18 19:46 [From Mastisol Adhesive] amoxicillin Allergy Rash/Hives Verified 09/06/18 19:46 bupropion [From Wellbutrin] Allergy Unknown Verified 09/06/18 19:46 duloxetine [From Cymbalta] Allergy Unknown Verified 09/08/18 10:38 gabapentin Allergy Unknown Verified 09/06/18 19:46 glatiramer (copolymer 1) Allergy Unknown Verified 09/06/18 19:46 [From Copaxone] gum mastic Allergy Rash/Hives Verified 09/06/18 19:46 [From Mastisol Adhesive] interferon christian (human leuk. Allergy Unknown Verified 09/06/18 19:46 derive interferon beta-1b Allergy Unknown Verified 09/06/18 19:46 [From Betaseron] methyl salicylate Allergy Rash/Hives Verified 09/06/18 19:46 [From Mastisol Adhesive] mold Allergy Unknown Verified 09/06/18 19:46 ragweed pollen Allergy Unknown Verified 09/06/18 19:46 storax Allergy Rash/Hives Verified 09/06/18 19:46 [From Mastisol Adhesive] sulfamethoxazole Allergy Rash/Hives Verified 09/06/18 19:46 [From Bactrim] trimethoprim [From Bactrim] Allergy Rash/Hives Verified 09/06/18 19:46 bupropion HCl AdvReac Severe Rash/Hives Verified 09/06/18 19:46 [From Wellbutrin] gluten AdvReac Severe Nausea & Verified 09/06/18 19:46 Vomiting & Diarrhea interferon beta AdvReac Severe Rash/Hives Verified 09/06/18 19:46 interferon beta-1a AdvReac Severe Rash/Hives Verified 09/06/18 19:46 [From Avonex] lamotrigine [From Lamictal] AdvReac Severe Rash/Hives Verified 09/06/18 19:46 oxaprozin [From Daypro] AdvReac Severe Rash/Hives Verified 09/06/18 19:46 Penicillins AdvReac Severe Rash/Hives Verified 09/06/18 19:46 azithromycin AdvReac Unknown Rash/Hives, Verified 09/06/18 19:46 RED SKIN, ITCHING doxycycline AdvReac Unknown Rash/Hives Verified 09/06/18 19:46 albumin human AdvReac Rash/Hives Verified 09/06/18 19:46 [From Rebif (with albumin)] dicyclomine [From Bentyl] AdvReac Rash/Hives Verified 09/06/18 19:46 wheat AdvReac Nausea & Verified 09/06/18 19:46 Vomiting & Diarrhea DUST Allergy ASTHMA Uncoded 09/06/18 19:47 SYMPTOMS STERISTRIPS AdvReac Severe BLISTERS Uncoded 09/06/18 19:47 TO SKIN Review of Systems ROS Statement: Those systems with pertinent positive or pertinent negative responses have been documented in the HPI. ROS Other: All systems not noted in ROS Statement are negative. Past Medical History Past Medical History: Asthma, COPD Additional Past Medical History / Comment(s): multiple sclerosis, anemia History of Any Multi-Drug Resistant Organisms: None Reported Past Surgical History: Bowel Resection, Cholecystectomy, EPS, Hernia Repair, Hysterectomy, Joint Replacement, Orthopedic Surgery, Tonsillectomy Additional Past Surgical History / Comment(s): Multiple bronchoscopies/BALs with last time being 02/05/18, bowel "twisted" with 8 inches removed, bilateral knee arthroscopies, total R knee arthroplasty, bilateral hip arthroplasties, R elbow surgery d/t trauma, L ankle breen/shultz, bilateral foot surgeries-fractured toe/pinned and neuroma removed, R rotator cuff repair, hypoglossal nerve stimulator (Inspire) for ALEXA, L power port, past picc line, sinus surgery, bila teral blepharoplasties, EGD/colonoscopy, lap Shaan fundoplasty, TTT, stone removed from R salivary gland. july 2018 rt eye surgery Past Anesthesia/Blood Transfusion Reactions: Blood Transfusion Reaction Additional Past Anesthesia/Blood Transfusion Reaction / Comment(s): HX OF BLOOD TRANSFUSION : HAS CARD STATING K ANTIBODY AFTER RECEIVING A TRANSFUSION Past Psychological History: Anxiety, Depression Smoking Status: Never smoker Past Alcohol Use History: Rare Past Drug Use History: None Reported - Past Family History Mother Family Medical History: Hypertension, Thyroid Disorder Additional Family Medical History / Comment(s): Mother is an alcoholic. Pt has no contact with her mother. Father Family Medical History: COPD, Hypertension Additional Family Medical History / Comment(s): Father at the age of 69yrs from emphysema. He was a smoker. Brother(s) Additional Family Medical History / Comment(s): Brother-AL X2 General Exam Limitations: no limitations General appearance: alert, other (mild distress secondary to pain) Head exam: Present: atraumatic, normocephalic, normal inspection Eye exam: Present: normal appearance, PERRL, EOMI. Absent: scleral icterus, conjunctival injection, periorbital swelling ENT exam: Present: normal exam, mucous membranes moist Neck exam: Present: normal inspection. Absent: tenderness, meningismus, lymphadenopathy Respiratory exam: Present: normal lung sounds bilaterally. Absent: respiratory distress, wheezes, rales, rhonchi, stridor Cardiovascular Exam: Present: normal rhythm, tachycardia, normal heart sounds. Absent: systolic murmur, diastolic murmur, rubs, gallop, clicks GI/Abdominal exam: Present: soft, tenderness, normal bowel sounds, other (tenderness to palpation in the right upper quadrant and right flank. ). Absent: distended, guarding, rebound, rigid, pulsatile mass, hernia Rectal exam: Present: deferred Extremities exam: Present: normal inspection, full ROM, normal capillary refill, other (2+ DP and PT pulses. Good capillary refill). Absent: tenderness, pedal edema, joint swelling, calf tenderness Back exam: Present: normal inspection, CVA tenderness (R). Absent: CVA tenderness (L), paraspinal tenderness, vertebral tenderness Neurological exam: Present: alert, oriented X3, CN II-XII intact Psychiatric exam: Present: normal affect, normal mood, anxious Skin exam: Present: warm, dry, intact, normal color. Absent: rash Course Vital Signs 09/06/18 09/06/18 09/06/18 16:09 18:38 19:27 Temperature 98.3 F 98 F Pulse Rate 120 H 93 95 Respiratory 20 16 18 Rate Blood Pressure 94/69 128/80 102/67 O2 Sat by Pulse 98 100 100 Oximetry Medical Decision Making - Medical Decision Making Upon arrival the patient is placed into room 15. She is hooked to continuous pulse ox and cardiac monitoring. A 12-lead EKG is performed which demonstrates no acute ischemic findings. Her tachycardia has improved. Peripheral IV is established. The patient was given 4 mg of morphine for her pain and 4 grams of Zofran for nausea. Laboratory studies were conducted. A CT of the patient's abdomen and pelvis performed with contrast which demonstrated a possible ileus. The patient did provide a urine sample. I did discuss results with the patient. The patient is still having significant amount of pain therefore she is given a second dose of IV morphine. Serial abdominal exams are performed and demonstrated no peritoneal signs. The patient was reevaluated for a third time and she was found texting on her phone in no acute distress. I did discuss the results with the patient. I did recommend transfer down [facility] as this is where her specialist is located. The patient refused transfer. I then recommend admission to [facility] for evaluation by GI and surgery for her ileus. The patient agreed to this. I did call discuss case with Dr. Evans. She did accept the admission. I did consult GI and surgery. I made the patient nothing by mouth at midnight, with a clear liquid diet at this time. Pain medications as well as antinausea medications are ordered for the floor. The patient remained in stable condition and was transported to the floor. - Differential Diagnosis acute abd pain, acute ileus, small bowel obstruction, suspected IBD - Lab Data Result diagrams: 09/06/18 17:08 09/10/18 08:34 Lab Results 09/06/18 09/06/18 09/06/18 Range/Units 16:55 17:08 17:08 WBC 4.8 (3.8-10.6) k/uL RBC 4.15 (3.80-5.40) m/uL Hgb 12.1 (11.4-16.0) gm/dL Hct 37.8 (34.0-46.0) % MCV 91.1 (80.0-100.0) fL MCH 29.2 (25.0-35.0) pg MCHC 32.1 (31.0-37.0) g/dL RDW 14.5 (11.5-15.5) % Plt Count 259 (150-450) k/uL Neutrophils % 57 % Lymphocytes % 24 % Monocytes % 13 % Eosinophils % 2 % Basophils % 1 % Neutrophils # 2.7 (1.3-7.7) k/uL Lymphocytes # 1.1 (1.0-4.8) k/uL Monocytes # 0.6 (0-1.0) k/uL Eosinophils # 0.1 (0-0.7) k/uL Basophils # 0.0 (0-0.2) k/uL ESR 18 (0-20) mm/hr PT (9.0-12.0) sec INR (<1.2) Sodium 139 (137-145) mmol/L Potassium 3.8 (3.5-5.1) mmol/L Chloride 109 H (98-107) mmol/L Carbon Dioxide 19 L (22-30) mmol/L Anion Gap 11 mmol/L BUN 9 (7-17) mg/dL Creatinine 1.08 H (0.52-1.04) mg/dL Est GFR (CKD-EPI)AfAm 68 (>60 ml/min/1.73 sqM) Est GFR (CKD-EPI)NonAf 59 (>60 ml/min/1.73 sqM) Glucose 90 (74-99) mg/dL Plasma Lactic Acid Ovidio (0.7-2.0) mmol/L Calcium 9.2 (8.4-10.2) mg/dL Total Bilirubin 0.3 (0.2-1.3) mg/dL AST 16 (14-36) U/L ALT 15 (9-52) U/L Alkaline Phosphatase 90 (38-126) U/L C-Reactive Protein 7.4 (<10.0) mg/L Total Protein 6.2 L (6.3-8.2) g/dL Albumin 3.6 (3.5-5.0) g/dL Lipase 73 (23-300) U/L Urine Color Colorless Urine Appearance Clear (Clear) Urine pH 6.0 (5.0-8.0) Ur Specific Grant 1.002 (1.001-1.035) Urine Protein Negative (Negative) Urine Glucose (UA) Negative (Negative) Urine Ketones Negative (Negative) Urine Blood Negative (Negative) Urine Nitrite Negative (Negative) Urine Bilirubin Negative (Negative) Urine Urobilinogen <2.0 (<2.0) mg/dL Ur Leukocyte Esterase Negative (Negative) 09/06/18 09/06/18 Range/Units 17:08 17:08 WBC (3.8-10.6) k/uL RBC (3.80-5.40) m/uL Hgb (11.4-16.0) gm/dL Hct (34.0-46.0) % MCV (80.0-100.0) fL MCH (25.0-35.0) pg MCHC (31.0-37.0) g/dL RDW (11.5-15.5) % Plt Count (150-450) k/uL Neutrophils % % Lymphocytes % % Monocytes % % Eosinophils % % Basophils % % Neutrophils # (1.3-7.7) k/uL Lymphocytes # (1.0-4.8) k/uL Monocytes # (0-1.0) k/uL Eosinophils # (0-0.7) k/uL Basophils # (0-0.2) k/uL ESR (0-20) mm/hr PT 10.3 (9.0-12.0) sec INR 1.0 (<1.2) Sodium (137-145) mmol/L Potassium (3.5-5.1) mmol/L Chloride (98-107) mmol/L Carbon Dioxide (22-30) mmol/L Anion Gap mmol/L BUN (7-17) mg/dL Creatinine (0.52-1.04) mg/dL Est GFR (CKD-EPI)AfAm (>60 ml/min/1.73 sqM) Est GFR (CKD-EPI)NonAf (>60 ml/min/1.73 sqM) Glucose (74-99) mg/dL Plasma Lactic Acid Ovidio 0.7 (0.7-2.0) mmol/L Calcium (8.4-10.2) mg/dL Total Bilirubin (0.2-1.3) mg/dL AST (14-36) U/L ALT (9-52) U/L Alkaline Phosphatase (38-126) U/L C-Reactive Protein (<10.0) mg/L Total Protein (6.3-8.2) g/dL Albumin (3.5-5.0) g/dL Lipase (23-300) U/L Urine Color Urine Appearance (Clear) Urine pH (5.0-8.0) Ur Specific Grant (1.001-1.035) Urine Protein (Negative) Urine Glucose (UA) (Negative) Urine Ketones (Negative) Urine Blood (Negative) Urine Nitrite (Negative) Urine Bilirubin (Negative) Urine Urobilinogen (<2.0) mg/dL Ur Leukocyte Esterase (Negative) - EKG Data EKG Comments: EKG demonstrates a normal sinus rhythm with a ventricular rate of 69. DC interval 154. QRS 76. QTc 407. There are no acute ST segment elevations or depressions concerning for ischemic changes. - Radiology Data Radiology results: report reviewed, image reviewed Disposition Clinical Impression: Abdominal pain, Ileus Disposition: ADMITTED IP TO THIS [facility] Condition: Stable Is patient prescribed a controlled substance at d/c from ED?: No Decision to Admit Reason: Admit from EC Decision Date: 09/06/18 Decision Time: 19:42
--- NOTE | 2018-09-06 17:56 | CT ---
EXAMINATION TYPE: CT abdomen pelvis w con DATE OF EXAM: 09/06/2018 COMPARISON: None HISTORY: Generalized pain with distention CT DLP: 1089.8 mGycm Automated exposure control for dose reduction was used. TECHNIQUE: Helical acquisition of images was performed from the lung bases through the pelvis. CONTRAST: Performed without Oral Contrast and with IV Contrast, patient injected with 100 mL of Isovue 300. FINDINGS: Lung bases are clear. There is no pleural effusion. Heart size is normal. There is no pericardial eff usion. There are clips from cholecystectomy. Liver spleen pancreas appear normal. Stomach appears normal. Bi le ducts are not dilated. There is no adrenal mass. Kidneys show satisfactory contrast opacification. There is no hydronephrosi s. The ureters are not dilated. There is no retroperitoneal adenopathy. There are surgical clips at t he right lower quadrant in the cecum. There are some distended fluid-filled loops of small bowel in t he mid abdomen that measure up to 3 cm. There is no sign of free air. There is no ascites. There is n o mesenteric edema. There is fluid in the large bowel down to the rectum. The lumbar spine is intact. Bony pelvis appears intact. There is bilateral hip prosthesis. IMPRESSION: DISTENDED SMALL BOWEL LOOPS WITH FLUID. LARGE BOWEL FLUID. APPEARANCE IS CONSISTENT WITH LARGE AND SM ALL BOWEL MILD ILEUS. I DO NOT SUSPECT A MECHANICAL OBSTRUCTION. PREVIOUS SURGERY NOTED AT THE CECUM IS A CHANGE COMPARED TO OLD EXAM.
[2018-09-06 18:03] LABS: Albumin 3.6 g/dL (3.5-5.0); C Reactive Protein 7.4 mg/L (<10.0); Calcium 9.2 mg/dL (8.4-10.2); Potassium 3.8 mmol/L (3.5-5.1); Total Bilirubin 0.3 mg/dL (0.2-1.3); Total Protein 6.2 g/dL (6.3-8.2)
[2018-09-06] MEDS ORDERED: MORPHINE SULFATE 4 MG/ML SYRINGE IVP STA (18:03)
[2018-09-06 18:36] LABS: Erythrocyte Sedimentation Rate 18 mm/hr (0-20)
[2018-09-06] MEDS ORDERED: NALOXONE 0.4 MG/ML 1 ML VIAL IV PRN (19:42)
[2018-09-06] MEDS ORDERED: MORPHINE SULFATE 4 MG/ML SYRINGE IV PRN (19:42)
[2018-09-06] MEDS ORDERED: ALPRAZolam 0.5 MG TAB PO PRN (19:55)
[2018-09-06] MEDS: MONTELUKAST 10 MG TAB PO SCH (21:36)
[2018-09-06] MEDS: traZODone HCL 50 MG TAB PO SCH (21:36)
[2018-09-06] MEDS: TOPIRAMATE 100 MG TAB PO SCH (21:36)
--- NOTE | 2018-09-06 23:01 | P.HPIM ---
History of Present Illness H&P Date: 09/06/18 The patient is a 53 yo F with a PMH of MS, asthma, adrenal insufficiency, ALEXA, and GERD who presented to the ED for abdominal pain and diarrhea. The patient follows w/ GI at [facility]. She reports that for the past few months, she has developed worsening diarrhea, bloating, and abdominal pain. She had been scheduled for a Colonoscopy at [facility] on 09/23/18, however, noted that her symptoms continued to get worse for which she contacted her GI physician who advised her to come to the ED. They also informed her that her test for stool Calprolectin was abnormal and elevated. She notes continued abd pain, at time of the interview a 6/10, diffuse, cramping like with associated nausea and no vomiting. She reports having worsening diarrhea with 5 watery BMs this morning. She however denied fever, chills, vomiting. Also denied chest pain, SOB, dizziness, or headaches. She underwent an extensive evaluation in the Ed w/ WBC 4.8, hemoglobin 12.1, platelets 259, BUN 9, creatinine 1.08, and abdomen/pelvis CT showing findings consistent with mild ileus. Urinalysis was unremarkable. EKG revealed normal sinus rhythm at 69 bpm. Review of Systems Pertinent positives and negatives as discussed in HPI, a complete review of systems was performed and all other systems are negative. Past Medical History Past Medical History: Asthma, COPD Additional Past Medical History / Comment(s): multiple sclerosis, anemia History of Any Multi-Drug Resistant Organisms: None Reported Past Surgical History: Bowel Resection, Cholecystectomy, EPS, Hernia Repair, Hysterectomy, Joint Replacement, Orthopedic Surgery, Tonsillectomy Additional Past Surgical History / Comment(s): Multiple bronchoscopies/BALs with last time being 02/05/18, bowel "twisted" with 8 inches removed, bilateral knee arthroscopies, total R knee arthroplasty, bilateral hip arthroplasties, R elbow surgery d/t trauma, L ankle breen/shultz, bilateral foot surgeries-fractured toe/pinned and neuroma removed, R rotator cuff repair, hypoglossal nerve stimulator (Inspire) for ALEXA, L power port, past picc line, sinus surgery, bilateral blepharoplasties, EGD/colonoscopy, lap Shaan fundoplasty, TTT, stone removed from R salivary gland. july 2018 rt eye surgery Past Anesthesia/Blood Transfusion Reactions: Blood Transfusion Reaction Additional Past Anesthesia/Blood Transfusion Reaction / Comment(s): HX OF BLOOD TRANSFUSION : HAS CARD STATING K ANTIBODY AFTER RECEIVING A TRANSFUSION Past Psychological History: Anxiety, Depression Additional Psychological History / Comment(s): Pt resides alone. She is retired and on disability. She drives. She has a nebulizer. Smoking Status: Never smoker Past Alcohol Use History: Rare Past Drug Use History: None Reported Additional Drug Use History / Comment(s): Has medical marijuana card, uses occasionally., - Past Family History Mother Family Medical History: Hypertension, Thyroid Disorder Additional Family Medical History / Comment(s): Mother is an alcoholic. Pt has no contact with her mother. Father Family Medical History: COPD, Hypertension Additional Family Medical History / Comment(s): Father at the age of 69yrs from emphysema. He was a smoker. Brother(s) Additional Family Medical History / Comment(s): Brother-[place] X2 Medications and Allergies Home Medications Medication Instructions Recorded Confirmed Type Montelukast [Singulair] 10 mg PO HS 07/14/13 09/06/18 History Fluticasone/Vilanterol [Breo 1 puff INHALATION RT-DAILY 11/19/15 09/06/18 History Ellipta 200-25 Mcg INH] Promethaz-Cod 6.25-10 mg/5 ml 5 ml PO Q4-6H PRN 03/06/16 09/06/18 History [Phenergan with Codeine] Mometasone Inhalr 220 Mcg/Puff 2 puff INHALATION RT-DAILY 03/07/16 09/06/18 History [Asmanex] DULoxetine HCL [Cymbalta] 60 mg PO DAILY 11/13/16 09/06/18 History Esomeprazole Magnesium [NexIUM] 40 mg PO DAILY 01/05/17 09/06/18 History Fluticasone Nasal [place] [Flonase 2 spray EA NOSTRIL BID 01/05/17 09/06/18 History Nasal Wells] ALPRAZolam [Xanax] 0.5 mg PO TID PRN 12/01/17 09/06/18 History Cholecalciferol (Vitamin D3) 12,000 unit PO DAILY 12/01/17 09/06/18 History [Vitamin D3] Cholestyramine (with Sugar) 4 gm PO BID 12/01/17 09/06/18 History [Questran Packet] Xeomin 100 unit IM Q90D 12/01/17 09/06/18 History traZODone HCL 150 mg PO HS 12/01/17 09/06/18 History Ergocalciferol (Vitamin D2) 50,000 unit PO FR 09/06/18 09/06/18 History [Drisdol] Fluconazole [Diflucan] 200 mg PO DAILY PRN 09/06/18 09/06/18 History HYDROmorphone [Dilaudid] 4 mg PO Q4-6H PRN 09/06/18 09/06/18 History Hydrocortisone [Cortef] 10 mg PO DAILY 09/06/18 09/06/18 History Levothyroxine Sodium [Synthroid] 50 mcg PO DAILY 09/06/18 09/06/18 History Prochlorperazine [Compazine] 10 mg PO TID PRN 09/06/18 09/06/18 History Topiramate [Topamax] 100 mg PO HS 09/06/18 09/06/18 History Allergies Allergy/AdvReac Type Severity Reaction Status Date / Time latex Allergy Severe Anaphylaxis Verified 09/06/18 19:46 Sulfa (Sulfonamide Allergy Severe Rash/Hives Verified 09/06/18 19:46 Antibiotics) adhesive Allergy Rash/Hives Verified 09/06/18 19:46 alcohol Allergy Rash/Hives Verified 09/06/18 19:46 [From Mastisol Adhesive] amoxicillin Allergy Rash/Hives Verified 09/06/18 19:46 bupropion [From Wellbutrin] Allergy Unknown Verified 09/06/18 19:46 duloxetine [From Cymbalta] Allergy Unknown Verified 09/06/18 19:46 gabapentin Allergy Unknown Verified 09/06/18 19:46 glatiramer (copolymer 1) Allergy Unknown Verified 09/06/18 19:46 [From Copaxone] gum mastic Allergy Rash/Hives Verified 09/06/18 19:46 [From Mastisol Adhesive] interferon christian (human leuk. Allergy Unknown Verified 09/06/18 19:46 derive interferon beta-1b Allergy Unknown Verified 09/06/18 19:46 [From Betaseron] methyl salicylate Allergy Rash/Hives Verified 09/06/18 19:46 [From Mastisol Adhesive] mold Allergy Unknown Verified 09/06/18 19:46 ragweed pollen Allergy Unknown Verified 09/06/18 19:46 storax Allergy Rash/Hives Verified 09/06/18 19:46 [From Mastisol Adhesive] sulfamethoxazole Allergy Rash/Hives Verified 09/06/18 19:46 [From Bactrim] trimethoprim [From Bactrim] Allergy Rash/Hives Verified 09/06/18 19:46 bupropion HCl AdvReac Severe Rash/Hives Verified 09/06/18 19:46 [From Wellbutrin] gluten AdvReac Severe Nausea & Verified 09/06/18 19:46 Vomiting & Diarrhea interferon beta AdvReac Severe Rash/Hives Verified 09/06/18 19:46 interferon beta-1a AdvReac Severe Rash/Hives Verified 09/06/18 19:46 [From Avonex] lamotrigine [From Lamictal] AdvReac Severe Rash/Hives Verified 09/06/18 19:46 oxaprozin [From Daypro] AdvReac Severe Rash/Hives Verified 09/06/18 19:46 Penicillins AdvReac Severe Rash/Hives Verified 09/06/18 19:46 azithromycin AdvReac Unknown Rash/Hives, Verified 09/06/18 19:46 RED SKIN, ITCHING doxycycline AdvReac Unknown Rash/Hives Verified 09/06/18 19:46 albumin human AdvReac Rash/Hives Verified 09/06/18 19:46 [From Rebif (with albumin)] dicyclomine [From Bentyl] AdvReac Rash/Hives Verified 09/06/18 19:46 wheat AdvReac Nausea & Verified 09/06/18 19:46 Vomiting & Diarrhea DUST Allergy ASTHMA Uncoded 09/06/18 19:47 SYMPTOMS STERISTRIPS AdvReac Severe BLISTERS Uncoded 09/06/18 19:47 TO SKIN Physical Exam Vitals: Vital Signs Temp Pulse Pulse Resp BP BP Pulse Ox 09/06/18 20:57 98.1 F 94 18 110/73 100 09/06/18 19:27 98 F 95 18 102/67 100 09/06/18 18:38 93 16 128/80 100 09/06/18 16:09 98.3 F 120 H 20 94/69 98 Intake and Output 09/06/18 09/06/18 09/06/18 06:59 14:59 22:59 Other: Weight 90.265 kg General: non toxic, no distress, appears at stated age, obese Derm: no unusual rashes/lesions no unusual ecchymoses, warm, dry Head: atraumatic, normocephalic, symmetric Eyes: EOMI, no lid lag, anicteric sclera, pupils equal round reactive to light ENT: Nose and ears atraumatic, no thrush, no pharyngeal erythema Neck: No thyromegaly, no cervical lymphadenopathy, trachea midline, supple Mouth: no lip lesion, mucus membranes moist Cardiovascular: S1S2 reg, no murmur, positive posterior tibial pulse bilateral, no edema, capillary refill less than 2 seconds Lungs: CTA bilateral, no rhonchi, no rales , no accessory muscle use Abdominal: Mildly distended, diffuse mild abdominal tenderness to palpation, no guarding, no appreciable organomegaly, normal bowel sounds Ext: no gross muscle atrophy, muscle strength 5 out of 5 in all 4 extremities grossly, no contractures, Neuro: CN II-XI grossly intact, light touch intact all 4 extremities, finger to nose within normal limits, Psych: Alert, oriented, appropriate affect Results CBC & Chem 7: 09/06/18 17:08 09/06/18 17:08 Labs: Abnormal Lab Results - Last 24 Hours (Table) 09/06/18 Range/Units 17:08 Chloride 109 H (98-107) mmol/L Carbon Dioxide 19 L (22-30) mmol/L Creatinine 1.08 H (0.52-1.04) mg/dL Total Protein 6.2 L (6.3-8.2) g/dL Thrombosis Risk Factor Assmnt - Choose All That Apply Each Factor Represents 1 point: Abnormal pulmonary function (COPD), Age 41-60 years, Obesity (BMI >25) Thrombosis Risk Factor Assessment Total Risk Factor Score: 3 Thrombosis Risk Factor Assessment Level: Moderate Risk Assessment and Plan Plan: Diarrhea, bloating, with abnormal Calprolectin levels -Possible IBD -Clear liquid diet for now -GI evaluation -Avoid further opiates -Antiemetics -Check C. diff Chronic conditions; multiple sclerosis, hypothyroidism, asthma -Resume home medications DVT prophylaxis -Heparin The patient is admitted with an anticipated greater than 2 midnight stay for evaluation of abdominal complaints. CODE STATUS:Full Code Discussed with: Patient Anticipated discharge date: 09/08/[address]: Home A total of 40 minutes was spent on the care of this complex patient more than 50% of the time was spent in counseling and care coordination.
[2018-09-06] MEDS: HEPARIN SODIUM,PORCINE 5,000 UNIT/ML 1 ML VIAL SQ SCH (23:56)
[2018-09-07] MEDS: ONDANSETRON 4 MG/2 ML VIAL IVP PRN ×3 (04:51→22:00)
[2018-09-07] MEDS: LEVOTHYROXINE 50 MCG TAB PO SCH (05:25)
[2018-09-07] MEDS: SYMBICORT 160-4.5 MCG INHALER INHALATION SCH ×2 (07:54→19:56)
[2018-09-07] MEDS: FLUTICASONE 110 MCG INHALER INHALATION SCH ×2 (07:57→19:58)
[2018-09-07] MEDS ORDERED: HYDROmorphone 2 MG TAB PO PRN ×2 (09:27→13:58)
[2018-09-07] MEDS: SODIUM CHLORIDE 0.45% 1,000 ML IV SCH ×2 (09:42→23:45)
[2018-09-07] MEDS: HYDROmorphone 1 MG/ML 1 ML SYRINGE IVP PRN ×3 (09:43→22:01)
[2018-09-07] MEDS: FLUTICASONE 50MCG/SPRAY NASAL 16GM EA NOSTRIL SCH ×2 (09:49→20:57)
[2018-09-07] MEDS: DULoxetine HCL 30 MG CAPSULE.DR PO SCH (09:50)
[2018-09-07] MEDS: PANTOPRAZOLE 40 MG TABLET PO SCH (09:50)
[2018-09-07] MEDS: HEPARIN SODIUM,PORCINE 5,000 UNIT/ML 1 ML VIAL SQ SCH ×3 (09:50→23:46)
[2018-09-07] MEDS: HYDROCORTISONE 10 MG TAB PO SCH (09:51)
--- NOTE | 2018-09-07 11:21 | P.CONS ---
History of Present Illness - Reason for Consult Consult date: 09/07/18 Abdominal pain and ileus Requesting physician: Hema Ha - Chief Complaint Abdominal pain - History of Present Illness 53-year-old female history of chronic abdominal pain admitted with acute abdominal pain nonbloody diarrhea with a history of bowel resection 4 years ago secondary to "twisted bowel" Dr. Resendiz, chronic adrenal insufficiency with chronic steroid usage, cholecystectomy, multiple bronchoscopies, multiple GI complaints and reported abnormal calprotectin result followed by [facility] specialist with schedule outpatient CT the next few weeks. Patient was advised by her [facility] GI specialist to have a colonoscopy locally. Admission white count 4.8. Hemoglobin 12.1. Platelet 259. CRP 7.4. she has a history of Crohn's disease on her dad's side. CT abdomen reported a sense small bowel loops with fluid in the mid abdomen measuring up to 3 cm. No free air. No ascites. No edema. Last reported EGD/colonoscopy about 4-5 years ago unremarkable. No fevers. Denies hematemesis hematochezia melena. Review of Systems General appearance: The patient is alert, oriented, in no acute distress. HET: Head is normocephalic and atraumatic. Pupils are equal and reactive. Oropharynx is clear without lesions. Neck: Supple without lymphadenopathy. Trachea midline. Heart: S1 S2. Regular rate and rhythm. Lungs: No crackles or wheezes are heard. Abdomen: Soft, nontender, nondistended with bowel sounds. No peritoneal signs. No palpable organomegaly or masses. Extremities: Normal skin color and turgor. No cyanosis, rash, ulceration, clubbing, or edema. Radial and pedal pulses are 2/4 bilaterally. Neurological: No focal deficits. Strength and sensation are grossly intact. Past Medical History Past Medical History: Asthma, COPD Additional Past Medical History / Comment(s): multiple sclerosis, anemia History of Any Multi-Drug Resistant Organisms: None Reported Past Surgical History: Bowel Resection, Cholecystectomy, EPS, Hernia Repair, Hysterectomy, Joint Replacement, Orthopedic Surgery, Tonsillectomy Additional Past Surgical History / Comment(s): Multiple bronchoscopies/BALs with last time being 02/05/18, bowel "twisted" with 8 inches removed, bilateral knee arthroscopies, total R knee arthroplasty, bilateral hip arthroplasties, R elbow surgery d/t trauma, L ankle breen/shultz, bilateral foot surgeries-fractured toe/pinned and neuroma removed, R rotator cuff repair, hypoglossal nerve stimulator (Inspire) for ALEXA, L power port, past picc line, sinus surgery, bilateral blepharoplasties, EGD/colonoscopy, lap Shaan fundoplasty, TTT, stone removed from R salivary gland. july 2018 rt eye surgery Past Anesthesia/Blood Transfusion Reactions: Blood Transfusion Reaction Additional Past Anesthesia/Blood Transfusion Reaction / Comm: HX OF BLOOD TRANSFUSION : HAS CARD STATING K ANTIBODY AFTER RECEIVING A TRANSFUSION Past Psychological History: Anxiety, Depression Smoking Status: Never smoker Past Alcohol Use History: Rare Past Drug Use History: None Reported - Past Family History Mother Family Medical History: Hypertension, Thyroid Disorder Additional Family Medical History / Comment(s): Mother is an alcoholic. Pt has no contact with her mother. Father Family Medical History: COPD, Hypertension Additional Family Medical History / Comment(s): Father at the age of 69yrs from emphysema. He was a smoker. Brother(s) Additional Family Medical History / Comment(s): Brother-[place] X2 Medications and Allergies Home Medications Medication Instructions Recorded Confirmed Type Montelukast [Singulair] 10 mg PO HS 07/14/13 09/06/18 History Fluticasone/Vilanterol [Breo 1 puff INHALATION RT-DAILY 11/19/15 09/06/18 History Ellipta 200-25 Mcg INH] Promethaz-Cod 6.25-10 mg/5 ml 5 ml PO Q4-6H PRN 03/06/16 09/06/18 History [Phenergan with Codeine] Mometasone Inhalr 220 Mcg/Puff 2 puff INHALATION RT-DAILY 03/07/16 09/06/18 History [Asmanex] DULoxetine HCL [Cymbalta] 60 mg PO DAILY 11/13/16 09/06/18 History Esomeprazole Magnesium [NexIUM] 40 mg PO DAILY 01/05/17 09/06/18 History Fluticasone Nasal Gantt [Flonase 2 spray EA NOSTRIL BID 01/05/17 09/06/18 History Nasal Gantt] ALPRAZolam [Xanax] 0.5 mg PO TID PRN 12/01/17 09/06/18 History Cholecalciferol (Vitamin D3) 12,000 unit PO DAILY 12/01/17 09/06/18 History [Vitamin D3] Cholestyramine (with Sugar) 4 gm PO BID 12/01/17 09/06/18 History [Questran Packet] Xeomin 100 unit IM Q90D 12/01/17 09/06/18 History traZODone HCL 150 mg PO HS 12/01/17 09/06/18 History Ergocalciferol (Vitamin D2) 50,000 unit PO FR 09/06/18 09/06/18 History [Drisdol] Fluconazole [Diflucan] 200 mg PO DAILY PRN 09/06/18 09/06/18 History HYDROmorphone [Dilaudid] 4 mg PO Q4-6H PRN 09/06/18 09/06/18 History Hydrocortisone [Cortef] 10 mg PO DAILY 09/06/18 09/06/18 History Levothyroxine Sodium [Synthroid] 50 mcg PO DAILY 09/06/18 09/06/18 History Prochlorperazine [Compazine] 10 mg PO TID PRN 09/06/18 09/06/18 History Topiramate [Topamax] 100 mg PO HS 09/06/18 09/06/18 History Allergies Allergy/AdvReac Type Severity Reaction Status Date / Time latex Allergy Severe Anaphylaxis Verified 09/06/18 19:46 Sulfa (Sulfonamide Allergy Severe Rash/Hives Verified 09/06/18 19:46 Antibiotics) adhesive Allergy Rash/Hives Verified 09/06/18 19:46 alcohol Allergy Rash/Hives Verified 09/06/18 19:46 [From Mastisol Adhesive] amoxicillin Allergy Rash/Hives Verified 09/06/18 19:46 bupropion [From Wellbutrin] Allergy Unknown Verified 09/06/18 19:46 duloxetine [From Cymbalta] Allergy Unknown Verified 09/06/18 19:46 gabapentin Allergy Unknown Verified 09/06/18 19:46 glatiramer (copolymer 1) Allergy Unknown Verified 09/06/18 19:46 [From Copaxone] gum mastic Allergy Rash/Hives Verified 09/06/18 19:46 [From Mastisol Adhesive] interferon christian (human leuk. Allergy Unknown Verified 09/06/18 19:46 derive interferon beta-1b Allergy Unknown Verified 09/06/18 19:46 [From Betaseron] methyl salicylate Allergy Rash/Hives Verified 09/06/18 19:46 [From Mastisol Adhesive] mold Allergy Unknown Verified 09/06/18 19:46 ragweed pollen Allergy Unknown Verified 09/06/18 19:46 storax Allergy Rash/Hives Verified 09/06/18 19:46 [From Mastisol Adhesive] sulfamethoxazole Allergy Rash/Hives Verified 09/06/18 19:46 [From Bactrim] trimethoprim [From Bactrim] Allergy Rash/Hives Verified 09/06/18 19:46 bupropion HCl AdvReac Severe Rash/Hives Verified 09/06/18 19:46 [From Wellbutrin] gluten AdvReac Severe Nausea & Verified 09/06/18 19:46 Vomiting & Diarrhea interferon beta AdvReac Severe Rash/Hives Verified 09/06/18 19:46 interferon beta-1a AdvReac Severe Rash/Hives Verified 09/06/18 19:46 [From Avonex] lamotrigine [From Lamictal] AdvReac Severe Rash/Hives Verified 09/06/18 19:46 oxaprozin [From Daypro] AdvReac Severe Rash/Hives Verified 09/06/18 19:46 Penicillins AdvReac Severe Rash/Hives Verified 09/06/18 19:46 azithromycin AdvReac Unknown Rash/Hives, Verified 09/06/18 19:46 RED SKIN, ITCHING doxycycline AdvReac Unknown Rash/Hives Verified 09/06/18 19:46 albumin human AdvReac Rash/Hives Verified 09/06/18 19:46 [From Rebif (with albumin)] dicyclomine [From Bentyl] AdvReac Rash/Hives Verified 09/06/18 19:46 wheat AdvReac Nausea & Verified 09/06/18 19:46 Vomiting & Diarrhea DUST Allergy ASTHMA Uncoded 09/06/18 19:47 SYMPTOMS STERISTRIPS AdvReac Severe BLISTERS Uncoded 09/06/18 19:47 TO SKIN Physical Exam Vitals: Vital Signs Temp Pulse Pulse Resp BP BP Pulse Ox 09/07/18 01:01 98.6 F 82 18 95/63 97 09/06/18 20:57 98.1 F 94 18 110/73 100 09/06/18 19:27 98 F 95 18 102/67 100 09/06/18 18:38 93 16 128/80 100 09/06/18 16:09 98.3 F 120 H 20 94/69 98 Intake and Output 09/06/18 09/07/18 09/07/18 22:59 06:59 14:59 Intake Total 10 Balance 10 Intake: Oral 10 Other: Weight 90.265 kg General appearance: The patient is alert, oriented, in no acute distress. HET: Head is normocephalic and atraumatic. Pupils are equal and reactive. Oropharynx is clear without lesions. Neck: Supple without lymphadenopathy. Trachea midline. Heart: S1 S2. Regular rate and rhythm. Lungs: No crackles or wheezes are heard. Abdomen: Soft, mild tenderness to the right lower quadrant, nondistended with bowel sounds. No peritoneal signs. No palpable organomegaly or masses. Extremities: Normal skin color and turgor. No cyanosis, rash, ulceration, clubbing, or edema. Radial and pedal pulses are 2/4 bilaterally. Neurological: No focal deficits. Strength and sensation are grossly intact. Results CBC & Chem 7: 09/06/18 17:08 09/06/18 17:08 Labs: Abnormal Lab Results - Last 24 Hours (Table) 09/06/18 Range/Units 17:08 Chloride 109 H (98-107) mmol/L Carbon Dioxide 19 L (22-30) mmol/L Creatinine 1.08 H (0.52-1.04) mg/dL Total Protein 6.2 L (6.3-8.2) g/dL CT scan - abdomen: report reviewed (Dr. 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 Jenkins admitted with acute on chronic abdominal pain right upper quadrant with nonbloody diarrhea possible ileus. CT reported possible ileus with unremarkable LFTs. Underlying inflammatory bowel disease suppressed by chronicity of steroid usage cannot be excluded. Current Visit: Yes Status: Acute Code(s): R10.9 - UNSPECIFIED ABDOMINAL PAIN SNOMED Code(s): 51058657 Plan: 1. Symptomatic supportive measures. GI prophylaxis. General surgery con sulted. Recommend EGD colonoscopy with biopsies will defer to GS service. Patient was advised to follow up with her GI specialist after discharge. Thank you for this kind referral and the opportunity to participate in the care of your patient. This consultation was discussed with Dr. Boyle. The impression and plan of care have been directed as dictated.
[2018-09-07] MEDS: CHOLESTYRAMINE (WITH SUGAR) 4 GM PACKET PO SCH ×2 (11:28→17:06)
--- NOTE | 2018-09-07 11:42 | CONS ---
CONSULTATION PULMONARY/CRITICAL CARE CONSULTATION: DATE OF CONSULTATION: September 07, 2018 This is a 53-year-old female who presented to the emergency department with complaints of abdominal pain. The pain had been going on for a couple days prior to admission. The pain is throughout her entire abdomen, but more so on the right flank area. Anyway, the patient described it is a very sharp shooting sensation. She apparently contacted her [facility] lead architect who suggested that she have a colonoscopy. He states he could not do it for her in a timely fashion and recommended that she head into the ER here to be evaluated, admitted and have a colonoscopy here. She apparently was seen by Dr. Hutchins and Dr. Hutchins is planning a colonoscopy tomorrow. I did pass it on to the hospitalist service. The patient denies any fever or chills. Her breathing is stable. Her asthma is not acting out. I see her as a primary and she has multiple medical problems including chronic bronchial asthma, sleep apnea syndrome, status post hypoglossal nerve stimulator implantation, adrenal insufficiency, postural orthostatic tachycardia syndrome, previous colectomy, chronic pain syndrome, multiple sclerosis, optic neuritis, and multiple previous orthopedic and surgical procedures. PAST SURGICAL HISTORY: Surgical procedures include among other things cholecystectomy, hernia repair, hysterectomy, joint replacement, tonsillectomy, hypoglossal nerve stimulator implant, knee arthroscopy, bowel resection, laparoscopic Shaan fundoplication for severe acid reflux disease, excision of a salivary gland, sialolithiasis, and multiple other surgical procedures. SOCIAL HISTORY: Negative for tobacco. She drinks rarely. No illicit drug use. FAMILY HISTORY: Positive for hypertension in her mother as well as hypothyroidism in her mother. Mother is an alcoholic. Father has a history of COPD and hypertension. Brother has a history of myocardial infarction x2. REVIEW OF SYSTEMS: CONSTITUTIONAL: Negative. NEUROLOGIC: Negative. HEENT: Negative. CARDIOVASCULAR: Negative. PULMONARY: Negative. GI: Abdominal pain, nausea, vomiting. : Negative. RHEUMATOLOGIC: Negative. IMMUNOLOGIC: Negative. ENDOCRINOLOGIC: Negative. DERMATOLOGIC: Negative. PHYSICAL EXAMINATION: VITAL SIGNS: Current vital signs are reviewed. Temperature is 98.9, heart rate 86, respiratory rate 16, blood pressure 109/72, mean 84, room air saturation 100%. GENERAL: Appears in no acute distress. Moaning and holding her right side. HEENT: Examination is grossly unremarkable. Mucous membranes are moist. NECK: Supple. Full range of motion. No adenopathy or thyromegaly. Neck veins are flat. CARDIOVASCULAR: Examination reveals regular rhythm and rate. Heart rate 86 beats per minute. S1, S2 normal. No S3, S4, or murmur. LUNGS: Reveal clear breath sounds. No wheezes or rhonchi. Breath sounds are diminished. No crackles. No prolongation. ABDOMEN: Is tender on palpation, particularly in the right mid to lower quadrant of the abdomen. Bowel sounds are noted. Abdomen is mildly distended. She has got diffuse tenderness throughout, but does seem to localize into the right lower quadrant of the abdomen or mid right-sided portion of the abdomen. No masses. EXTREMITIES: Are intact. No cyanosis, clubbing, or edema. SKIN: Without rash. NEUROLOGIC: Examination is brief but nonfocal. LAB DATA: Lab data includes a white count 4.8, hemoglobin 12.1, hematocrit 37.8, platelet count 259,000. PT, INR is 10.3 and 1.0. Sodium 139, potassium 3.8, chloride 109, CO2 of 19. BUN and creatinine were 9 and 1.08. UA is negative. She had a CT of the abdomen and pelvis, which showed air within small and large bowel. No mechanical obstructions appreciated. She was seen by the PA of the surgeon. A colonoscopy is planned for tomorrow. I did pass that on to the hospital service. Medications are reviewed. She is on appropriate medications at this time. ASSESSMENT: 1. Right-sided abdominal pain, possibly related to ileus and/or bowel obstruction. 2. Previous colon resection for twisted bowel/volvulus. 3. History of severe chronic bronchial asthma, which is stable. 4. History of adrenal insufficiency. 5. Postural orthostatic tachycardia syndrome. 6. Autoimmune hepatitis. 7. History of multiple surgical procedures. 8. Sleep apnea syndrome, status post implantation of a hypoglossal nerve stimulator. 9. Vitamin D deficiency. 10.Multiple sclerosis/optic neuritis. 11.Status post laparoscopic Shaan fundoplication. PLAN: We will await input from surgery. Apparently, a colonoscopy is planned for tomorrow. No additional recommendations are made. We will continue to follow. Prognosis is guarded. The patient does have a history of multiple medical problems. Will continue to watch closely. Asthma is currently stable. MMODL / IJN: [id number] /
[2018-09-07] MEDS ORDERED: PEG 3350-NA SULF,BICARB,CL/KCL 4,000 ML BOTTLE PO ONE (11:50)
--- NOTE | 2018-09-07 11:59 | P.GSCN ---
History of Present Illness Consult date: 09/07/18 Reason for Consult: abdominal pain Requesting physician: Vonnie Morales History of present illness: CHIEF COMPLAINT: Abdominal pain HISTORY OF PRESENT ILLNESS: 53-year-old female with a history of chronic abdominal pain who follows with GI specialist out of [facility]. Patient reports she was notified by GI specialist yesterday secondary to abnormal calprotectin level of 162. Patient reports he recommended patient to have a colonoscopy but apparently was unable to do this in the next few weeks so he advised patient to come to the emergency room. Patient reports she has been having increased abdominal pain over the past few days. Pain mostly in the right upper quadrant. Patient reports loose bowel movement yesterday. Reports nausea. Denies vomiting. Patient reports history of bowel resection 4 years ago secondary to twisted bowel by Dr. Resendiz. PAST MEDICAL HISTORY: See list. PAST SURGICAL HISTORY: See list. SOCIAL HISTORY: No illicit drug use. REVIEW OF SYSTEMS: CONSTITUTIONAL: Denies fever or chills. HEENT: Denies blurred vision, vision changes, or eye pain. Denies hemoptysis CARDIOVASCULAR: Denies chest pain or pressure. RESPIRATORY: No shortness of breath. GASTROINTESTINAL: Refer to HPI for pertinent findings HEMATOLOGIC: Denies bleeding disorders. GENITOURINARY: Denies any blood in urine. SKIN: Denies pruitis. Denies rash. PHYSICAL EXAM: VITAL SIGNS: Reviewed. GENERAL: Well-developed in no acute distress. HEENT: No sclera icterus. Extraocular movements grossly intact. Moist buccal mucosa. Head is atraumatic, normocephalic. ABDOMEN: Soft. Minimal distention. Tenderness with palpation to right upper quadrant. Positive bowel sounds. NEUROLOGIC: Alert and oriented. Cranial nerves II through XII grossly intact. LABORATORY DATA: Laboratory data upon admission reveals white count 4.8. Hemoglobin 12.1. Sodium 139. Potassium 3.8. Creatinine 1.08. Lactic acid 0.7. Bilirubin 0.3. AST 16. ALT 15. CRP 7.4. IMAGING: CT abdomen and pelvis: Distended small bowel loops with fluid. Large bowel fluid. Appearance is consistent with large and small bowel mild ileus. No suspected mechanical obstruction. ASSESSMENT: 1. Acute on chronic abdominal pain 2. Mild ileus per CT scan 3. History of bowel resection 4 years ago PLAN: 1. Clear liquid diet. NPO after midnight 2. GI evaluated patient this morning who is also recommending EGD 3. Will perform EGD and colonoscopy tomorrow 4. Patient advised to follow up post discharge with GI specialist Nurse practitioner note has been reviewed by physician. Signing provider agrees with the documented findings, assessment, and plan of care. Past Medical History Past Medical History: Asthma, COPD Additional Past Medical History / Comment(s): multiple sclerosis, anemia History of Any Multi-Drug Resistant Organisms: None Reported Past Surgical History: Bowel Resection, Cholecystectomy, EPS, Hernia Repair, Hysterectomy, Joint Replacement, Orthopedic Surgery, Tonsillectomy Additional Past Surgical History / Comment(s): Multiple bronchoscopies/BALs with last time being 02/05/18, bowel "twisted" with 8 inches removed, bilateral knee arthroscopies, total R knee arthroplasty, bilateral hip arthroplasties, R elbow surgery d/t trauma, L ankle breen/shultz, bilateral foot surgeries-fractured toe/pinned and neuroma removed, R rotator cuff repair, hypoglossal nerve stimulator ([employer]spire) for ALEXA, L power port, past picc line, sinus surgery, bila teral blepharoplasties, EGD/colonoscopy, lap Shaan fundoplasty, TTT, stone removed from R salivary gland. july 2018 rt eye surgery Past Anesthesia/Blood Transfusion Reactions: Blood Transfusion Reaction Additional Past Anesthesia/Blood Transfusion Reaction / Comm: HX OF BLOOD TRANSFUSION : HAS CARD STATING K ANTIBODY AFTER RECEIVING A TRANSFUSION Past Psychological History: Anxiety, Depression Smoking Status: Never smoker Past Alcohol Use History: Rare Past Drug Use History: None Reported - Past Family History Mother Family Medical History: Hypertension, Thyroid Disorder Additional Family Medical History / Comment(s): Mother is an alcoholic. Pt has no contact with her mother. Father Family Medical History: COPD, Hypertension Additional Family Medical History / Comment(s): Father at the age of 69yrs from emphysema. He was a smoker. Brother(s) Additional Family Medical History / Comment(s): Brother-[place] X2 Medications and Allergies Home Medications Medication Instructions Recorded Confirmed Type Montelukast [Singulair] 10 mg PO HS 07/14/13 09/06/18 History Fluticasone/Vilanterol [Breo 1 puff INHALATION RT-DAILY 11/19/15 09/06/18 History Ellipta 200-25 Mcg INH] Promethaz-Cod 6.25-10 mg/5 ml 5 ml PO Q4-6H PRN 03/06/16 09/06/18 History [Phenergan with Codeine] Mometasone Inhalr 220 Mcg/Puff 2 puff INHALATION RT-DAILY 03/07/16 09/06/18 History [Asmanex] DULoxetine HCL [Cymbalta] 60 mg PO DAILY 11/13/16 09/06/18 History Esomeprazole Magnesium [NexIUM] 40 mg PO DAILY 01/05/17 09/06/18 History Fluticasone Nasal [place] [Flonase 2 spray EA NOSTRIL BID 01/05/17 09/06/18 History Nasal [place]] ALPRAZolam [Xanax] 0.5 mg PO TID PRN 12/01/17 09/06/18 History Cholecalciferol (Vitamin D3) 12,000 unit PO DAILY 12/01/17 09/06/18 History [Vitamin D3] Cholestyramine (with Sugar) 4 gm PO BID 12/01/17 09/06/18 History [Questran Packet] Xeomin 100 unit IM Q90D 12/01/17 09/06/18 History traZODone HCL 150 mg PO HS 12/01/17 09/06/18 History Ergocalciferol (Vitamin D2) 50,000 unit PO FR 09/06/18 09/06/18 History [Drisdol] Fluconazole [Diflucan] 200 mg PO DAILY PRN 09/06/18 09/06/18 History HYDROmorphone [Dilaudid] 4 mg PO Q4-6H PRN 09/06/18 09/06/18 History Hydrocortisone [Cortef] 10 mg PO DAILY 09/06/18 09/06/18 History Levothyroxine Sodium [Synthroid] 50 mcg PO DAILY 09/06/18 09/06/18 History Prochlorperazine [Compazine] 10 mg PO TID PRN 09/06/18 09/06/18 History Topiramate [Topamax] 100 mg PO HS 09/06/18 09/06/18 History Allergies Allergy/AdvReac Type Severity Reaction Status Date / Time latex Allergy Severe Anaphylaxis Verified 09/06/18 19:46 Sulfa (Sulfonamide Allergy Severe Rash/Hives Verified 09/06/18 19:46 Antibiotics) adhesive Allergy Rash/Hives Verified 09/06/18 19:46 alcohol Allergy Rash/Hives Verified 09/06/18 19:46 [From Mastisol Adhesive] amoxicillin Allergy Rash/Hives Verified 09/06/18 19:46 bupropion [From Wellbutrin] Allergy Unknown Verified 09/06/18 19:46 duloxetine [From Cymbalta] Allergy Unknown Verified 09/06/18 19:46 gabapentin Allergy Unknown Verified 09/06/18 19:46 glatiramer (copolymer 1) Allergy Unknown Verified 09/06/18 19:46 [From Copaxone] gum mastic Allergy Rash/Hives Verified 09/06/18 19:46 [From Mastisol Adhesive] interferon christian (human leuk. Allergy Unknown Verified 09/06/18 19:46 derive interferon beta-1b Allergy Unknown Verified 09/06/18 19:46 [From Betaseron] methyl salicylate Allergy Rash/Hives Verified 09/06/18 19:46 [From Mastisol Adhesive] mold Allergy Unknown Verified 09/06/18 19:46 ragweed pollen Allergy Unknown Verified 09/06/18 19:46 storax Allergy Rash/Hives Verified 09/06/18 19:46 [From Mastisol Adhesive] sulfamethoxazole Allergy Rash/Hives Verified 09/06/18 19:46 [From Bactrim] trimethoprim [From Bactrim] Allergy Rash/Hives Verified 09/06/18 19:46 bupropion HCl AdvReac Severe Rash/Hives Verified 09/06/18 19:46 [From Wellbutrin] gluten AdvReac Severe Nausea & Verified 09/06/18 19:46 Vomiting & Diarrhea interferon beta AdvReac Severe Rash/Hives Verified 09/06/18 19:46 interferon beta-1a AdvReac Severe Rash/Hives Verified 09/06/18 19:46 [From Avonex] lamotrigine [From Lamictal] AdvReac Severe Rash/Hives Verified 09/06/18 19:46 oxaprozin [From Daypro] AdvReac Severe Rash/Hives Verified 09/06/18 19:46 Penicillins AdvReac Severe Rash/Hives Verified 09/06/18 19:46 azithromycin AdvReac Unknown Rash/Hives, Verified 09/06/18 19:46 RED SKIN, ITCHING doxycycline AdvReac Unknown Rash/Hives Verified 09/06/18 19:46 albumin human AdvReac Rash/Hives Verified 09/06/18 19:46 [From Rebif (with albumin)] dicyclomine [From Bentyl] AdvReac Rash/Hives Verified 09/06/18 19:46 wheat AdvReac Nausea & Verified 09/06/18 19:46 Vomiting & Diarrhea DUST Allergy ASTHMA Uncoded 09/06/18 19:47 SYMPTOMS STERISTRIPS AdvReac Severe BLISTERS Uncoded 09/06/18 19:47 TO SKIN Surgical - Exam Vital Signs Temp Pulse Resp BP Pulse Ox 98.3 F 120 H 20 94/69 98 09/06/18 16:09 09/06/18 16:09 09/06/18 16:09 09/06/18 16:09 09/06/18 16:09 Results - Labs 09/06/18 17:08 09/06/18 17:08 Abnormal Lab Results - Last 24 Hours (Table) 09/06/18 Range/Units 17:08 Chloride 109 H (98-107) mmol/L Carbon Dioxide 19 L (22-30) mmol/L Creatinine 1.08 H (0.52-1.04) mg/dL Total Protein 6.2 L (6.3-8.2) g/dL Diabetes panel 09/06/18 Range/Units 17:08 Sodium 139 (137-145) mmol/L Potassium 3.8 (3.5-5.1) mmol/L Chloride 109 H (98-107) mmol/L Carbon Dioxide 19 L (22-30) mmol/L BUN 9 (7-17) mg/dL Creatinine 1.08 H (0.52-1.04) mg/dL Glucose 90 (74-99) mg/dL Calcium 9.2 (8.4-10.2) mg/dL AST 16 (14-36) U/L ALT 15 (9-52) U/L Alkaline Phosphatase 90 (38-126) U/L Total Protein 6.2 L (6.3-8.2) g/dL Albumin 3.6 (3.5-5.0) g/dL Calcium panel 09/06/18 Range/Units 17:08 Calcium 9.2 (8.4-10.2) mg/dL Albumin 3.6 (3.5-5.0) g/dL Pituitary panel 09/06/18 Range/Units 17:08 Sodium 139 (137-145) mmol/L Potassium 3.8 (3.5-5.1) mmol/L Chloride 109 H (98-107) mmol/L Carbon Dioxide 19 L (22-30) mmol/L BUN 9 (7-17) mg/dL Creatinine 1.08 H (0.52-1.04) mg/dL Glucose 90 (74-99) mg/dL Calcium 9.2 (8.4-10.2) mg/dL Adrenal panel 09/06/18 Range/Units 17:08 Sodium 139 (137-145) mmol/L Potassium 3.8 (3.5-5.1) mmol/L Chloride 109 H (98-107) mmol/L Carbon Dioxide 19 L (22-30) mmol/L BUN 9 (7-17) mg/dL Creatinine 1.08 H (0.52-1.04) mg/dL Glucose 90 (74-99) mg/dL Calcium 9.2 (8.4-10.2) mg/dL Total Bilirubin 0.3 (0.2-1.3) mg/dL AST 16 (14-36) U/L ALT 15 (9-52) U/L Alkaline Phosphatase 90 (38-126) U/L Total Protein 6.2 L (6.3-8.2) g/dL Albumin 3.6 (3.5-5.0) g/dL
--- NOTE | 2018-09-07 14:07 | P.PN ---
Subjective Progress Note Date: 09/07/18 (delayed charting seen at 1030) Principal diagnosis: abdominal pain Patient is a 53-year-old female with a complex past medical history including multiple sclerosis, adrenal insufficiency, hypothyroidism, asthma, and irritable bowel syndrome who presented to the emergency department with abdominal pain and diarrhea. Apparently she has been being worked up as an outpatient through [facility]. She was noted to have an elevated she'll protect them level. She was due to have an outpatient CT of the abdomen and pelvis in a few weeks. Her GI physician. Apparently she called his office on the day of admission he was unable to fit her in for approximately 3 weeks and directed her to the emergency department. On arrival to the emergency department here she was found to be tachycardic with a heart rate of 120 and a slightly low blood pressure of 94/69. Initial laboratory analysis is essentially unremarkable. CT abdomen and pelvis showed distended small bowel loops that were fluid filled as well as fluid-filled large bowel consistent with large and small bowel mild ileus. She was started on a clear liquid diet, antiemetics, and pain control. She is admitted for further monitoring. She has been seen by general surgery and plan is for EGD and colonoscopy on 09/08. Patient seen and examined at bedside. She denies any chest pain, shortness of breath, or cough. She is still having significant abdominal pain with some nausea. We discussed the risks and benefits of opiate use with known ileus. She is okay in proceeding with Dilaudid use. She has not been taking any oral Dilaudid at home for quite some time. Objective - Vital Signs Vital signs: Vital Signs Temp 98.9 F 09/07/18 07:14 Pulse 86 09/07/18 07:14 Resp 16 09/07/18 07:14 BP 109/72 09/07/18 07:14 Pulse Ox 100 09/07/18 07:14 Intake & Output 09/06/18 09/07/18 09/07/18 18:59 06:59 18:59 Intake Total 10 775 Balance 10 775 Weight 90.265 kg Intake: Oral 10 775 Other: Voiding Method Toilet - Exam General: non toxic, mild distress due to pain, appears at stated age Derm: warm, dry Head: atraumatic, normocephalic, symmetric Eyes: EOMI, no lid lag, anicteric sclera Mouth: no lip lesion, mucus membranes moist Cardiovascular: S1S2 reg, no murmur, positive posterior tibial pulse bilateral, Lungs: CTA bilateral, no rhonchi, no rales , no accessory muscle use Abdominal: soft, + tender to palpation Right and left lower quadrants, no guarding, no appreciable organomegaly Ext: no gross muscle atrophy, no edema, no contractures Neuro: CN II-XI grossly intact, no focal neuro deficits Psych: Alert, oriented, appropriate affect - Labs CBC & Chem 7: 09/06/18 17:08 09/06/18 17:08 Labs: Abnormal Lab Results - Last 24 Hours (Table) 09/06/18 Range/Units 17:08 Chloride 109 H (98-107) mmol/L Carbon Dioxide 19 L (22-30) mmol/L Creatinine 1.08 H (0.52-1.04) mg/dL Total Protein 6.2 L (6.3-8.2) g/dL Assessment and Plan Assessment: Intractable abdominal pain with diarrhea -Concern is for probable inflammatory bowel disease. Plan is for EGD and colonoscopy in a.m. with biopsies. -GI and surgery recommendations appreciated. -Plan is for outpatient follow-up -Symptomatic control with pain medications, IV fluids, antiemetics -If starts vomiting with insert nasogastric tube. -Check C. diff if patient able to produce a specimen -Patient unable to tolerate Bentyl secondary to ALLERGY Adrenal insufficiency -Continue home Cortef dosing Multiple sclerosis -Continue outpatient follow-up Hypothyroidism -Continue Synthroid Asthma without exacerbation -Continue with home bronchodilators -Pulmonary consultation Chronic: -Autoimmune hepatitis -Sinusitis, chronic -Anemia -Obstructive sleep apnea status post surgery -Chronic low back pain -Pot -Fibromyalgia -GERD -Dyslipidemia -History of SVT DVT prophylaxis: heparin Discussed with: patient, nursing, surgery and GI Anticipated discharge: 2-[address]: home A total of [35] minutes was spent on the care of this complex patient more than 50% of the time was spent in counseling and care coordination.
[2018-09-07] MEDS: MONTELUKAST 10 MG TAB PO SCH (20:56)
[2018-09-07] MEDS: TOPIRAMATE 100 MG TAB PO SCH (20:56)
[2018-09-07] MEDS: traZODone HCL 50 MG TAB PO SCH (20:57)
[2018-09-08] MEDS: LEVOTHYROXINE 50 MCG TAB PO SCH (05:32)
[2018-09-08] MEDS: ONDANSETRON 4 MG/2 ML VIAL IVP PRN ×4 (05:51→23:10)
[2018-09-08] MEDS: HYDROmorphone 1 MG/ML 1 ML SYRINGE IVP PRN ×4 (05:52→23:10)
[2018-09-08] MEDS: FLUTICASONE 110 MCG INHALER INHALATION SCH ×2 (08:32→19:45)
[2018-09-08] MEDS: SYMBICORT 160-4.5 MCG INHALER INHALATION SCH ×2 (08:32→19:44)
[2018-09-08 08:35] LABS: Albumin 3.4 g/dL (3.5-5.0); Calcium 8.9 mg/dL (8.4-10.2); Potassium 3.6 mmol/L (3.5-5.1); Total Bilirubin 0.4 mg/dL (0.2-1.3); Total Protein 5.9 g/dL (6.3-8.2)
[2018-09-08] MEDS: PANTOPRAZOLE 40 MG TABLET PO SCH (08:40)
[2018-09-08] MEDS: HEPARIN SODIUM,PORCINE 5,000 UNIT/ML 1 ML VIAL SQ SCH ×3 (08:41→23:07)
[2018-09-08] MEDS: DULoxetine HCL 30 MG CAPSULE.DR PO SCH (08:41)
[2018-09-08] MEDS: HYDROCORTISONE 10 MG TAB PO SCH (08:41)
[2018-09-08] MEDS: CHOLESTYRAMINE (WITH SUGAR) 4 GM PACKET PO SCH ×2 (08:41→17:43)
--- NOTE | 2018-09-08 12:13 | P.PN ---
Subjective Progress Note Date: 09/08/18 Patient reports that she is getting slightly better her belly is the less distended as compared to before and her pain is getting better. She reported that she presented to the emergency department a few days ago her abdominal pain was 10 over 10 in intensity but now it's 6-7/10 in intensity. Patient stated that she had a consumed the bowel prep completely and the has been passing loose stools since then. She stated that abdominal pain is not related to the bowel movements. She did give history of having bowel resection few years ago because of the "twisting of her bowels" as reported by her. Patient reported that she was concerned that she may have the similar condition again but it resolved on its own before the CAT scan was done. Patient denies nausea, vomiting, chest pain, palpitation, shortness of breath, fever, chills, headache, dizziness, diaphoresis and denies rest of the review system. Patient's stool was sent for C. diff toxin which was negative. And currently patient is waiting for her EGD/colonoscopy. Nurses reported no current issues with her. Objective - Vital Signs Vital signs: Vital Signs Temp 98.1 F 09/08/18 10:56 Pulse 89 09/08/18 10:56 Resp 15 09/08/18 10:56 BP 93/59 09/08/18 10:56 Pulse Ox 96 09/08/18 10:56 Intake & Output 09/07/18 09/08/18 09/08/18 18:59 06:59 18:59 Intake Total 775 Balance 775 Intake: Oral 775 Other: Voiding Method Toilet # Voids 2 - Constitutional General appearance: Present: cooperative, no acute distress, obese - EENT Eyes: Present: EOMI, normal appearance ENT: Present: hearing grossly normal, NA/AT - Neck Neck: Present: normal ROM. Absent: lymphadenopathy, rigidity - Respiratory Respiratory: bilateral: CTA, negative: rales, rhonchi, wheezing - Cardiovascular Rhythm: regular Heart sounds: normal: S1, S2 Abnormal Heart Sounds: Absent: systolic murmur, diastolic murmur, S3 Gallop, S4 Gallop - Gastrointestinal General gastrointestinal: Present: normal bowel sounds, soft. Absent: distended, rigid Localized gastrointestinal: tender: diffuse (Without guarding or rigidity or rebound.) - Neurologic Neurologic: Present: CNII-XII intact. Absent: focal deficits - Psychiatric Psychiatric: Present: A&O x's 3, appropriate affect, intact judgment & insight - Allied health notes Allied health notes reviewed: nursing - Labs CBC & Chem 7: 09/06/18 17:08 09/08/18 08:00 Labs: Abnormal Lab Results - Last 24 Hours (Table) 09/08/18 Range/Units 08:00 Chloride 109 H (98-107) mmol/L BUN 5 L (7-17) mg/dL AST 117 H (14-36) U/L ALT 146 H (9-52) U/L Alkaline Phosphatase 166 H (38-126) U/L Total Protein 5.9 L (6.3-8.2) g/dL Albumin 3.4 L (3.5-5.0) g/dL Assessment and Plan (1) Abdominal pain Current Visit: Yes Status: Acute Priority: High Code(s): R10.9 - UNSPECIFIED ABDOMINAL PAIN SNOMED Code(s): 74784209 (2) Ileus Current Visit: Yes Status: Acute Priority: High Code(s): K56.7 - ILEUS, UNSPECIFIED SNOMED Code(s): 309257929 (3) Adrenal insufficiency Current Visit: Yes Status: Chronic Priority: Medium Code(s): E27.40 - UNSPECIFIED ADRENOCORTICAL INSUFFICIENCY SNOMED Code(s): 708787545 (4) Asthma Current Visit: No Status: Chronic Priority: Medium Code(s): J45.909 - UNSPECIFIED ASTHMA, UNCOMPLICATED SNOMED Code(s): 304655558 (5) Hyperlipidemia Current Visit: No Status: Chronic Priority: Medium Code(s): E78.5 - HYPERLIPIDEMIA, UNSPECIFIED SNOMED Code(s): 81618334 (6) Hypothyroidism Current Visit: No Status: Chronic Priority: Medium Code(s): E03.9 - HYPOTHYROIDISM, UNSPECIFIED SNOMED Code(s): 28322402 (7) Multiple sclerosis Current Visit: No Status: Chronic Priority: Medium Code(s): G35 - MULTIPLE SCLEROSIS SNOMED Code(s): 44722063 Plan: Patient is a clinically improving but is still don't know the reason for her a bdominal pain and bowel ileus, she will be going for EGD/colonoscopy upon the call from the OR. Patient current management will be continued as it is and no changes are recommended at this point in time until further information is received from the above plan and procedure. Time with Patient: Less than 30
[2018-09-08] MEDS ORDERED: PROPOFOL 10 MG/ML 20 ML VIAL IV ONE (14:13)
[2018-09-08] MEDS ORDERED: MIDAZOLAM 2 MG/2 ML VIAL ONE (14:13)
[2018-09-08] MEDS ORDERED: fentaNYL (PF) 50 MCG/ML 2 ML AMP ONE (14:13)
--- NOTE | 2018-09-08 14:17 | P.PN ---
Subjective Progress Note Date: 09/08/18 Principal diagnosis: Abdominal distention This is a very pleasant 53-year-old female patient presented to the emergency room on 09/06/2018 with complaints of abdominal pain and distention. She is seen again today in follow-up in the endoscopy suite. She is awake and alert in no acute distress. She is going to be undergoing EGD and colonoscopy with Dr. Lopez. She is maintaining good O2 saturations in the 90s on room air. She's afebrile. Hemodynamically stable. Sodium 141. Potassium 3.6. Creatinine 1.04. AST 117, ALT 146, alk phos 166. C. difficile screen was negative. Objective - Vital Signs Vital signs: Vital Signs Temp 98.1 F 09/08/18 10:56 Pulse 89 09/08/18 10:56 Resp 15 09/08/18 10:56 BP 93/59 09/08/18 10:56 Pulse Ox 96 09/08/18 10:56 Intake & Output 09/07/18 09/08/18 09/08/18 18:59 06:59 18:59 Intake Total 775 Balance 775 Intake: Oral 775 Other: Voiding Method Toilet # Voids 2 - Exam GENERAL EXAM: Alert, pleasant 53-year-old female patient, fairly comfortable in no apparent distress. On room air. HEAD: Normocephalic. EYES: Normal reaction of pupils, equal size. NOSE: Clear with pink turbinates. THROAT: No erythema or exudates. NECK: No masses, no JVD. CHEST: No chest wall deformity. LUNGS: Equal air entry with no crackles, wheeze, rhonchi or dullness. CVS: S1 and S2 normal with no audible murmur, regular rhythm. ABDOMEN: Distended, tender to palpation. SPINE: No scoliosis or deformity SKIN: No rashes CENTRAL NERVOUS SYSTEM: No focal deficits, tone is normal in all 4 extremities. EXTREMITIES: There is no peripheral edema. No clubbing, no cyanosis. Peripheral pulses are intact. - Labs CBC & Chem 7: 09/06/18 17:08 09/08/18 08:00 Labs: Abnormal Lab Results - Last 24 Hours (Table) 09/08/18 Range/Units 08:00 Chloride 109 H (98-107) mmol/L BUN 5 L (7-17) mg/dL AST 117 H (14-36) U/L ALT 146 H (9-52) U/L Alkaline Phosphatase 166 H (38-126) U/L Total Protein 5.9 L (6.3-8.2) g/dL Albumin 3.4 L (3.5-5.0) g/dL Assessment and Plan Assessment: Impression: #1 Right-sided abdominal discomfort secondary to possible ileus and/or bowel obstruction. #2 Previous colon resection for twisted bowel/volvulus. #3 History of severe chronic bronchial asthma, currently inactive and stable. #4 Adrenal insufficiency. #5 Postural orthostatic tachycardia syndrome. #6 Autoimmune hepatitis. #7 Obstructive sleep apnea status post implantation of a hypoglossal nerve stimulator. #8 Vitamin D deficiency. #9 Multiple sclerosis/optic neuritis. #10 Status post laparoscopic Shaan fundoplication. Plan: The patient was seen and evaluated by Dr. Dougherty. She is stable from the pulmonary standpoint. We will await results of the EGD/colonoscopy. We'll continue to follow. I, the cosigning physician, performed a history & physical examination of the patient. Lungs sounds are clear. Maintaining good O2 saturations in the 90s on room air. I discussed the assessment and plan of care with my nurse practitioner, Carmen Matthew. I attest to the above note as dictated by her.
[2018-09-08] MEDS ORDERED: IV FLUID CONTINUATION 1,000 ML IV ONE ×2 (14:18)
--- NOTE | 2018-09-08 14:48 | P.OP ---
Date of Procedure: 09/08/18 Preoperative Diagnosis: Abdominal pain, nausea Screening colonoscopy Postoperative Diagnosis: Antral gastritis Normal colonoscopy Procedure(s) Performed: EGD Colonoscopy Anesthesia: MAC Surgeon: Yadiel Hutchins Pathology: other (Antrum) Condition: stable Disposition: PACU Description of Procedure: The patient's placed on the endoscopy table in the lateral position. She received IV sedation. The gastroscope placed oropharynx passed in the esophagus and into the stomach. Scope then placed through the pylorus. The first and second portion of the duodenum. Scope was then brought back the antrum and this appeared mildly inflamed. A biopsies performed. Scope was unretroflexed and remainder the stomach appeared normal. There is no significant hiatal hernia. The GE junction was at 40 cm. The distal esophagus appeared normal the proximal esophagus appeared normal. Scope was withdrawn for patient. Next digital rectal exam was performed which revealed no ebonized. The possible colonoscope was then placed patient anus passed rotator entire colon. The patient had a previous right colectomy. The ileocolonic anastomosis visualized. There was no evidence of scarring at the anastomosis. The scope was then withdrawn the remainder of the ascending, transverse and descending colon appe ared normal. The sigmoid colon and rectum appeared normal. Scope withdrawn for patient.
[2018-09-08] MEDS: FLUTICASONE 50MCG/SPRAY NASAL 16GM EA NOSTRIL SCH ×2 (15:44→21:35)
[2018-09-08] MEDS: SODIUM CHLORIDE 0.45% 1,000 ML IV SCH (15:47)
[2018-09-08] MEDS: TOPIRAMATE 100 MG TAB PO SCH (21:35)
[2018-09-08] MEDS: MONTELUKAST 10 MG TAB PO SCH (21:35)
[2018-09-08] MEDS: traZODone HCL 50 MG TAB PO SCH (21:35)
[2018-09-09] MEDS: SODIUM CHLORIDE 0.45% 1,000 ML IV SCH ×2 (01:29→17:32)
[2018-09-09] MEDS: LEVOTHYROXINE 50 MCG TAB PO SCH (05:23)
[2018-09-09] MEDS: HYDROmorphone 1 MG/ML 1 ML SYRINGE IVP PRN ×2 (05:25→22:02)
[2018-09-09] MEDS: ONDANSETRON 4 MG/2 ML VIAL IVP PRN ×2 (05:25→15:43)
[2018-09-09] MEDS: SYMBICORT 160-4.5 MCG INHALER INHALATION SCH ×2 (07:32→19:58)
[2018-09-09] MEDS: FLUTICASONE 110 MCG INHALER INHALATION SCH ×2 (07:43→20:19)
[2018-09-09] MEDS: FLUTICASONE 50MCG/SPRAY NASAL 16GM EA NOSTRIL SCH ×2 (08:03→21:14)
[2018-09-09] MEDS: HEPARIN SODIUM,PORCINE 5,000 UNIT/ML 1 ML VIAL SQ SCH ×2 (08:04→17:31)
[2018-09-09] MEDS: DULoxetine HCL 30 MG CAPSULE.DR PO SCH (08:04)
[2018-09-09] MEDS: HYDROCORTISONE 10 MG TAB PO SCH (08:04)
[2018-09-09] MEDS: PANTOPRAZOLE 40 MG TABLET PO SCH (08:04)
--- NOTE | 2018-09-09 10:16 | P.PN ---
Subjective Progress Note Date: 09/09/18 CHIEF COMPLAINT: Abdominal pain HISTORY OF PRESENT ILLNESS: patient is status post EGD and colonoscopy revealing antral gastritis. Colonoscopy normal. Biopsies are pending. Patient continues to report abdominal pain this morning. She denies nausea. However she is tolerating regular diet without emesis. Passing flatus. LFTs were elevated yesterday. GI has been consulted. PHYSICAL EXAM: VITAL SIGNS: Reviewed. GENERAL: Well-developed in no acute distress. HEENT: No sclera icterus. Extraocular movements grossly intact. Moist buccal mucosa. Head is atraumatic, normocephalic. ABDOMEN: Soft. nondistended. Tenderness with palpation to right upper quadrant. Positive bowel sounds. NEUROLOGIC: Alert and oriented. Cranial nerves II through XII grossly intact. ASSESSMENT: 1. Acute on chronic abdominal pain 2. Mild ileus per CT scan 3. History of bowel resection 4 years ago 4. History of cholecystectomy 5. Elevated liver enzymes PLAN: Diet as tolerated. Patient to follow up with her GI physician at [facility] for chronic abdominal pain GI consulted for elevated LFTS No surgical intervention recommended we will sign off. Please reconsult if needed. Nurse practitioner note has been reviewed by physician. Signing provider agrees with the documented findings, assessment, and plan of care. Objective - Vital Signs Vital signs: Vital Signs Temp 98.6 F 09/09/18 07:00 Pulse 89 09/09/18 07:00 Resp 16 09/09/18 07:00 BP 103/66 09/09/18 07:00 Pulse Ox 95 09/09/18 07:00 Intake & Output 09/08/18 09/09/18 09/09/18 18:59 06:59 18:59 Intake Total 940 675 118 Balance 940 675 118 Intake: IV 100 Intake, IV Titration 600 675 Amount Sodium Chloride 0.45% 1, 600 675 000 ml @ 75 mls/hr IV . [id number] [facility] Rx#:[id number] Oral 240 118 Other: Voiding Method Toilet Toilet # Voids 1 - Labs CBC & Chem 7: 09/06/18 17:08 09/08/18 08:00
--- NOTE | 2018-09-09 10:32 | P.PN ---
Subjective Progress Note Date: 09/09/18 Principal diagnosis: Abdominal pain History of cholecystectomy for acalculous biliary dyskinesia adrenal insufficiency chronic steroid usage. Status post EGD colonoscopy yesterday with biopsies to evaluate for possible underlying inflammatory bowel disease. Patient has a history of reported autoimmune hepatitis via biospy about 5 years ago. Transaminases normal on admission. Admission CT reported no obvious abnormalities of the biliary tree or liver. Yesterday transaminases had increased AST 117. ALT 146. AP 166. CMP is pending today. Objective - Vital Signs Vital signs: Vital Signs Temp 98.6 F 09/09/18 07:00 Pulse 89 09/09/18 07:00 Resp 16 09/09/18 07:00 BP 103/66 09/09/18 07:00 Pulse Ox 95 09/09/18 07:00 Intake & Output 09/08/18 09/09/18 09/09/18 18:59 06:59 18:59 Intake Total 940 675 Balance 940 675 Intake: IV 100 Intake, IV Titration 600 675 Amount Sodium Chloride 0.45% 1, 600 675 000 ml @ 75 mls/hr IV . [id number] [facility] Rx#:[id number] Oral 240 Other: Voiding Method Toilet # Voids 1 - Exam General appearance: The patient is alert, oriented, in no acute distress. HET: Head is normocephalic and atraumatic. Pupils are equal and reactive. Orop harynx is clear without lesions. Neck: Supple without lymphadenopathy. Trachea midline. Heart: S1 S2. Regular rate and rhythm. Lungs: No crackles or wheezes are heard. Abdomen: Soft, nontender, nondistended with bowel sounds. No peritoneal signs. No palpable organomegaly or masses. Extremities: Normal skin color and turgor. No cyanosis, rash, ulceration, clubbing, or edema. Radial and pedal pulses are 2/4 bilaterally. Neurological: No focal deficits. Strength and sensation are grossly intact. - Labs CBC & Chem 7: 09/06/18 17:08 09/10/18 08:34 Assessment and Plan (1) Transaminitis Narrative/Plan: History of acalculous cholecystectomy biliary dyskinesia with reported history of autoimmune hepatitis by patient however liver biopsy 2012 for evaluation of transaminitis reviewed by [facility] reported no evidence of autoimmune hepatitis possible hepatic necrosis but increased iron stores nowhere near the range for hemochromotosis. Etiology of transaminitis is unclear at this time. Current Visit: Yes Status: Acute Priority: High Code(s): R74.0 - NONSPEC ELEV OF LEVELS OF TRANSAMNS & LACTIC ACID DEHYDRGNSE SNOMED Code(s): 253361032 (2) Abdominal pain Narrative/Plan: History of cecal volvulus s/p colectomy multiple upper and lower endoscopies in the past without no convincing evidence of underlying IBD. Status post EGD colonoscopy for evaluation of elevated fecal calprotectin level biopsies pending Current Visit: Yes Status: Acute Priority: High Code(s): R10.9 - UNSPECIFIED ABDOMINAL PAIN SNOMED Code(s): 44350829 (3) Adrenal insufficiency Current Visit: Yes Status: Chronic Priority: Medium Code(s): E27.40 - UNSPECIFIED ADRENOCORTICAL INSUFFICIENCY SNOMED Code(s): 086909891 (4) Multiple sclerosis Current Visit: Yes Status: Chronic Code(s): G35 - MULTIPLE SCLEROSIS SNOMED Code(s): 24083677 Plan: 1. Endoscopic biopsies pending. Daily CMP. Ultrasound right upper quadrant. If CMP continues to improve may discharge and follow up with [facility]. Archival medical records liver biopsy reviewed. Assessment and plan a care discussed with Dr. Boyle
[2018-09-09 11:05] LABS: Albumin 3.7 g/dL (3.5-5.0); Bilirubin, Delta 0.1 mg/dL (0.0-0.2); Bilirubin,Unconjugated 0.1 mg/dL (0.0-1.1); Total Bilirubin 0.2 mg/dL (0.2-1.3); Total Protein 6.4 g/dL (6.3-8.2)
[2018-09-09] MEDS: CHOLESTYRAMINE (WITH SUGAR) 4 GM PACKET PO SCH ×2 (11:28→21:14)
--- NOTE | 2018-09-09 12:14 | P.PN ---
Subjective Progress Note Date: 09/09/18 Principal diagnosis: Abdominal distention and pain On 09/09/2018 patient seen in follow-up on medical surgical floor. Still having abdominal pain and distention, but no nausea or vomiting. Underwent EGD and colonoscopy by Dr. Gilbert yesterday, and patient was found to have antral gastritis, anoscopy was negative. Patient denies any shortness of breath or cough, no wheezing, her breathing is stable, repair pulse ox is 95%, she is afebrile. His lab work showed trending downward of the liver enzymes, AST is down to 50 from 117, ALT is 101 from 146, C-reactive protein is 158 from 166, lipase was within normal limits on 09/06/2018. Difficile was negative, urinalysis was negative endoscopic biopsies are pending. Ultrasound of the right upper quadrant is pending. Objective - Vital Signs Vital signs: Vital Signs Temp 98.6 F 09/09/18 07:00 Pulse 89 09/09/18 07:00 Resp 16 09/09/18 07:00 BP 103/66 09/09/18 07:00 Pulse Ox 95 09/09/18 07:00 Intake & Output 09/08/18 09/09/18 09/09/18 18:59 06:59 18:59 Intake Total 940 675 118 Balance 940 675 118 Intake: IV 100 Intake, IV Titration 600 675 Amount Sodium Chloride 0.45% 1, 600 675 000 ml @ 75 mls/hr IV . [id number] [facility] Rx#:[id number] Oral 240 118 Other: Voiding Method Toilet Toilet # Voids 1 - Exam GENERAL EXAM: Alert, pleasant, 53-year-old white female, on room air comfortable in no apparent distress. HEAD: Normocephalic/atraumatic. EYES: Normal reaction of pupils, equal size. Conjunctiva pink, sclera white. NOSE: Clear with pink turbinates. THROAT: No erythema or exudates. NECK: No masses, no JVD, no thyroid enlargement, no adenopathy. CHEST: No chest wall deformity. Symmetrical expansion. LUNGS: Equal air entry with no crackles, wheeze, rhonchi or dullness. CVS: Regular rate and rhythm, normal S1 and S2, no gallops, no murmurs, no rubs ABDOMEN: Soft, nontender. No hepatosplenomegaly, normal bowel sounds, no guarding or rigidity. EXTREMITIES: No clubbing, no edema, no cyanosis, 2+ pulses and upper and lower extremities. MUSCULOSKELETAL: Muscle strength and tone normal. SPINE: No scoliosis or deformity SKIN: No rashes CENTRAL NERVOUS SYSTEM: Alert and oriented -3. No focal deficits, tone is no rmal in all 4 extremities. PSYCHIATRIC: Alert and oriented -3. Appropriate affect. Intact judgment and insight. - Labs CBC & Chem 7: 09/06/18 17:08 09/08/18 08:00 Labs: Abnormal Lab Results - Last 24 Hours (Table) 09/09/18 Range/Units 10:03 AST 50 H (14-36) U/L ALT 101 H (9-52) U/L Alkaline Phosphatase 158 H (38-126) U/L Assessment and Plan Plan: Assessment: #1 Right-sided abdominal discomfort, under investigation, EGD showing antral gastritis, endoscopic biopsies are pending, colonoscopy was within normal limits #2 elevated liver transaminases, US of the abdomen is pending, lipase is negative #3 Previous colon resection for twisted bowel/volvulus. #4 History of severe chronic bronchial asthma, currently inactive and stable. #5 Adrenal insufficiency. #6 Postural orthostatic tachycardia syndrome. #7 Autoimmune hepatitis. #8 Obstructive sleep apnea status post implantation of a hypoglossal nerve stimulator. #9 Vitamin D deficiency. #10 Multiple sclerosis/optic neuritis. #11 Status post laparoscopic Shaan fundoplication. Plan: Patient is stable from pulmonary perspective, no acute pulmonary issues at this time, ultrasound of the abdomen is pending, GI and surgical services are following. She continues to have abdominal pain and distention, no nausea or vomiting. His Biopsies are pending, liver enzymes are trending down. We will sign off and follow an as-needed basis I performed a history & physical examination of the patient and discussed their management with my nurse practitioner, Vibha Spivey. I reviewed the nurse practitioner's note and agree with the documented findings and plan of care. Lung sounds are positive for clear lung sounds. The findings and the impression was discussed with the patient. I attest to the documentation by the nurse practitioner. Time with Patient: Less than 30
--- NOTE | 2018-09-09 12:52 | US ---
EXAMINATION TYPE: US abdomen limited DATE OF EXAM: 09/09/2018 COMPARISON: CT 3 days ago. CLINICAL HISTORY: elevated liver enzymes; on multiple medication for MS, asthma, COPD, adrenal insuff iciency; colon resection, patient c/o abdominal bloating x 2 months; right abdominal pain and bloatin g x 4 days; had EGD and colonoscopy yesterday; gluten intolerance; gallbladder removed EXAM MEASUREMENTS: Liver Length: 15.1 cm Gallbladder Wall: surgically removed CBD: 0.5 cm Right Kidney: 9.6 x 4.8 x 4.5 cm Pancreas: hyperechoic but seen in entirety Liver: no masses are seen Gallbladder: surgically removed Evidence for sonographic Beckman's sign: no CBD: wnl Right Kidney: No hydronephrosis or masses seen IMPRESSION: No suspicious intrahepatic or extrahepatic biliary dilatation in patient with history of cholecystectomy.
--- NOTE | 2018-09-09 14:28 | P.PN ---
Subjective Progress Note Date: 09/09/18 Patient reports that her abdominal pain is not getting completely resolved and she still rates around 6/10 in intensity now she states that it is more localized to the right upper quadrant area and some on the just left to the umbilical area. Patient has not consumed pain medication since last evening. Myles lux had colonoscopy and EGD done yesterday which was the significant for antral gastritis biopsies were taken colonoscopy was reported as normal. Patient does have the volvulus of the cecum status post right hemicolectomy and ileocolic anastomosis and anastomosis site was visualized no scar tissue was reported. Patient was started on regular diet yesterday but after eating the foods her pain in the abdomen got worse and she herself requested to full liquid diet since morning and she is eating very slowly and reported that she is going to advance diet slowly. Patient denies nausea but off and on she gets dry heaves if she tried to eat fast. Patient liver enzymes were elevated yesterday and they were normal at the time of admission with her right upper quadrant abdominal pain complaints and history of autoimmune hepatitis repeat liver enzymes were ordered for this morning they show slight improvement. Overall clinical condition is slightly improved as compared to the time when she came into the hospital but per patient she is not getting any further improvements. Patient denies chest pain, palpitation, headache, dizziness, fever, chills, diaphoresis and denies rest of the review of system. Objective - Vital Signs Vital signs: Vital Signs Temp 98.6 F 09/09/18 07:00 Pulse 89 09/09/18 07:00 Resp 16 09/09/18 07:00 BP 103/66 09/09/18 07:00 Pulse Ox 95 09/09/18 07:00 Intake & Output 09/08/18 09/09/18 09/09/18 18:59 06:59 18:59 Intake Total 940 675 118 Balance 940 675 118 Intake: IV 100 Intake, IV Titration 600 675 Amount Sodium Chloride 0.45% 1, 600 675 000 ml @ 75 mls/hr IV . [id number] [facility] Rx#:[id number] Oral 240 118 Other: Voiding Method Toilet Toilet # Voids 1 - Constitutional General appearance: Present: cooperative, no acute distress - EENT Eyes: Present: EOMI, normal appearance ENT: Present: hearing grossly normal, NA/AT - Neck Neck: Present: normal ROM. Absent: lymphadenopathy, rigidity - Respiratory Respiratory: bilateral: CTA, negative: rales, rhonchi, wheezing - Cardiovascular Rhythm: regular Heart sounds: normal: S1, S2 Abnormal Heart Sounds: Absent: systolic murmur, diastolic murmur, S3 Gallop, S4 Gallop - Gastrointestinal Gastrointestinal Comment(s): Abdomen soft bowel sound positive all 4 quadrants, patient does have right upper quadrant direct tenderness, unable to palpate liver margin. Patient does have increased pain over the right upper quadrant/hepatic area with deep inspirations. Some soreness in the umbilicus area just left to the umbilicus was noted without guarding or rigidity or rebound. No epigastric or suprapubic tenderness or bilateral lower quadrant tenderness detected. - Neurologic Neurologic: Present: CNII-XII intact. Absent: focal deficits - Psychiatric Psychiatric: Present: A&O x's 3, appropriate affect, intact judgment & insight - Allied health notes Allied health notes reviewed: nursing - Labs CBC & Chem 7: 09/06/18 17:08 09/08/18 08:00 Labs: Abnormal Lab Results - Last 24 Hours (Table) 09/09/18 Range/Units 10:03 AST 50 H (14-36) U/L ALT 101 H (9-52) U/L Alkaline Phosphatase 158 H (38-126) U/L - Imaging and Cardiology US - abdomen: report reviewed Assessment and Plan (1) Transaminitis Narrative/Plan: Normal liver enzymes at admission but got worse yesterday and on review of blood pressure log she usually runs between 90 systolic to 110 systolic there was no severe hypotensive episodes documented. Patient presented with abdominal pain which was more generalized but including the right upper quadrant it could be because of her autoimmune hepatitis leading to slight worsening in the condition and perihepatitis with pain and tenderness and now her transaminases are elevated or it could be idiopathic cause. I will repeat liver enzymes in the morning and will reconsult Dr. Phelps for their input and patient liver condition. Current Visit: Yes Status: Acute Priority: High Code(s): R74.0 - NONSPEC ELEV OF LEVELS OF TRANSAMNS & LACTIC ACID DEHYDRGNSE SNOMED Code(s): 535107069 (2) Abdominal pain Narrative/Plan: Patient's abdominal pain still persisting but slightly improved as compared to the time of presentation. Patient is not requiring when necessary pain medication will continue to monitor. Patient will be continued on full liquid diet and slowly advance as tolerated. Current Visit: Yes Status: Acute Priority: High Code(s): R10.9 - UNSPECIFIED ABDOMINAL PAIN SNOMED Code(s): 21667989 (3) Ileus Narrative/Plan: Patient's ileus has been resolved especially after her bowel prep. There is no distended abdomen noted and bowel sounds are present. Cause of ileus not known but does not appears to be a volvulus at this point. This was the patient's concern as she had similar abdominal pain few years ago and she ended up with partial colectomy of the right side. Current Visit: Yes Status: Acute Priority: High Code(s): K56.7 - ILEUS, UNSPECIFIED SNOMED Code(s): 475545948 (4) Adrenal insufficiency Narrative/Plan: Stable, continue current management. Current Visit: Yes Status: Chronic Priority: Medium Code(s): E27.40 - UNSPECIFIED ADRENOCORTICAL INSUFFICIENCY SNOMED Code(s): 067793235 (5) Asthma Narrative/Plan: Patient is stable on current management, being followed by pulmonary Dr. Dougherty. Current Visit: No Status: Chronic Priority: Medium Code(s): J45.909 - UNSPECIFIED ASTHMA, UNCOMPLICATED SNOMED Code(s): 322833122 (6) Hyperlipidemia Narrative/Plan: Continue to hold his statin for now due to GI complaints and transaminitis. Current Visit: No Status: Chronic Priority: Medium Code(s): E78.5 - HYPERLIPIDEMIA, UNSPECIFIED SNOMED Code(s): 88936578 (7) Hypothyroidism Narrative/Plan: Continue Synthroid. Current Visit: No Status: Chronic Priority: Medium Code(s): E03.9 - HYPOTHYROIDISM, UNSPECIFIED SNOMED Code(s): 02605187 (8) Multiple sclerosis Narrative/Plan: Clinically stable, no clinical evidence of relapse at this point. Current Visit: No Status: Chronic Priority: Medium Code(s): G35 - MULTIPLE SCLEROSIS SNOMED Code(s): 61633809 Time with Patient: Less than 30
[2018-09-09] MEDS: traZODone HCL 50 MG TAB PO SCH (21:14)
[2018-09-09] MEDS: TOPIRAMATE 100 MG TAB PO SCH (21:14)
[2018-09-09] MEDS: MONTELUKAST 10 MG TAB PO SCH (21:14)
[2018-09-09] MEDS ORDERED: METOCLOPRAMIDE 5 MG TAB PO STA (23:13)
[2018-09-10] MEDS: HEPARIN SODIUM,PORCINE 5,000 UNIT/ML 1 ML VIAL SQ SCH ×2 (00:15→09:06)
[2018-09-10 01:07] VITALS: RESP 16
[2018-09-10] MEDS: SODIUM CHLORIDE 0.45% 1,000 ML IV SCH (04:52)
[2018-09-10] MEDS: LEVOTHYROXINE 50 MCG TAB PO SCH (05:24)
[2018-09-10 07:31] VITALS: BP 108/69; PULSE 73; TEMP 98.5
[2018-09-10] MEDS: SYMBICORT 160-4.5 MCG INHALER INHALATION SCH ×2 (08:06→08:10)
[2018-09-10] MEDS: FLUTICASONE 110 MCG INHALER INHALATION SCH ×2 (08:06→08:08)
[2018-09-10] MEDS: HYDROCORTISONE 10 MG TAB PO SCH (09:06)
[2018-09-10] MEDS: DULoxetine HCL 30 MG CAPSULE.DR PO SCH (09:06)
[2018-09-10] MEDS: PANTOPRAZOLE 40 MG TABLET PO SCH (09:06)
[2018-09-10] MEDS: FLUTICASONE 50MCG/SPRAY NASAL 16GM EA NOSTRIL SCH (09:14)
[2018-09-10 09:22] LABS: Albumin 3.1 g/dL (3.5-5.0); Potassium 3.5 mmol/L (3.5-5.1); Total Bilirubin 0.2 mg/dL (0.2-1.3); Total Protein 5.7 g/dL (6.3-8.2)
[2018-09-10] MEDS: CHOLESTYRAMINE (WITH SUGAR) 4 GM PACKET PO SCH (10:29)
--- NOTE | 2018-09-10 19:00 | P.DS ---
Providers Date of admission: 09/06/18 19:42 Expected date of discharge: 09/10/18 Attending physician: Daphne Evans, DO Consults: 09/07/18 14:07 Consult Physician Routine Consulting Provider: Seferino Dougherty Reason/Comments: wendy Do you want consulting provider notified?: Already Contacted Primary care [facility] Course: 53-year-old female with PMH of otosclerosis, adrenal insufficiency, hypothyroidism, asthma and irritable bowel syndrome presents to the ED for abdominal pain and diarrhea. CT of the abdomen and pelvis in the ED showed dis tended small bowel loops that were fluid-filled as well as fluid-filled largebowel consistent with large and small bowel mild ileus. Patient was started on a clear liquid diet, antiemetics and pain control. General surgery was consulted and patient underwent EGD and colonoscopy. EGD showed antral gastritis. Colonoscopy was within normal limits. Patient was noted to have elevated liver enzymes on day 2 of admission. Abdominal ultrasound showed normal hepatic ducts. LFTs trended down at the time of discharge. Patient was seen and examined. No acute events overnight. Patient very upset this morning. Patient is upset that the surgeon only saw her for "12 seconds" after her EGD and colonoscopy while she was getting her liver ultrasound. Also upset that she has not been seen by the GI attending yet. Patient is demanding that we discharge her. Patient reports 8 out of 10 in severity abdominal pain in the right lower quadrant. Patient reports no bowel movement since her colonoscopy. She does report passing minimal amounts of gas. She denies any chest pain, shortness of breath or palpitations. Patient states that she will get in contact with [facility] for further treatment. General: [non toxic], [upset], [appears at stated age] Derm: [warm], [dry] Head: [atraumatic], [normocephalic], [symmetric] Eyes: [EOMI], [no lid lag], [anicteric sclera] Mouth: [no lip lesion], [mucus membranes moist] Cardiovascular: [S1S2 reg], [no murmur] Lungs: [CTA bilateral], [no rhonchi, no rales] , [no accessory muscle use] Abdominal: [soft], [tenderness to palpation in the right lower quadrant without rebound], [no guarding], [no appreciable organomegaly] Ext: [no gross muscle atrophy], [no edema], [no contractures] Neuro: [no focal neuro deficits] Psych: [Alert], [oriented], [appropriate affect] Abdominal pain likely related to ileus, rule out volvulus Transaminitis Adrenal insufficiency Asthma Hypothyroidism Multiple sclerosis Patient is afebrile with no leukocytosis. CT abdomen and pelvis shows distended small bowel loops along with large bowel fluid consistent with large and small bowel mild ileus. EGD and colonoscopy shows antral gastritis. Plans: Pain control with Dilaudid by mouth. Zofran for nausea or vomiting. Protonix by mouth daily. Patient will need follow-up with GI at [facility]. AST 171, ALT 146 on 09/08/2018. Resolved now except for mildly elevated ALT of 64. Abdominal ultrasound shows no dilated ducts. Plans: Need repeat CMP in 3 days. Plans: Continue Cortef. Monitor vital signs. Plans: Continue Singulair. Continue Symbicort. Plans: Continue Synthroid. Plans: Outpatient follow-up with neurology. Patient appears quite upset with the care that she has received and is requesting discharge. States that she will get in contact with GI at [facility] for further management of her symptoms. Workup so far has been benign. Will DC the patient home. Patient Condition at Discharge: Stable Plan - Discharge Summary Discharge Rx Participant: Yes New Discharge Prescriptions: New HYDROmorphone [Dilaudid] 4 mg PO Q4H PRN #36 tab PRN Reason: Pain Scale 4 To 6 Continue Montelukast [Singulair] 10 mg PO HS Fluticasone/Vilanterol [Breo Ellipta 200-25 Mcg INH] 1 puff INHALATION RT-DA ARACELI Mometasone Inhalr 220 Mcg/Puff [Asmanex] 2 puff INHALATION RT-DAILY DULoxetine HCL [Cymbalta] 60 mg PO DAILY Esomeprazole Magnesium [NexIUM] 40 mg PO DAILY Fluticasone Nasal [place] [Flonase Nasal [place]] 2 spray EA NOSTRIL BID Xeomin 100 unit IM Q90D ALPRAZolam [Xanax] 0.5 mg PO TID PRN PRN Reason: Anxiety traZODone HCL 150 mg PO HS Cholestyramine (with Sugar) [Questran Packet] 4 gm PO BID Cholecalciferol (Vitamin D3) [Vitamin D3] 12,000 unit PO DAILY Topiramate [Topamax] 100 mg PO HS Fluconazole [Diflucan] 200 mg PO DAILY PRN PRN Reason: WITH ANTIBIOTICS Prochlorperazine [Compazine] 10 mg PO TID PRN PRN Reason: Nausea Hydrocortisone [Cortef] 10 mg PO DAILY Levothyroxine Sodium [Synthroid] 50 mcg PO DAILY Ergocalciferol (Vitamin D2) [Drisdol] 50,000 unit PO FR Discontinued Promethaz-Cod 6.25-10 mg/5 ml [Phenergan with Codeine] 5 ml PO Q4-6H PRN PRN Reason: Cough HYDROmorphone [Dilaudid] 4 mg PO Q4-6H PRN PRN Reason: Pain Discharge Medication List Montelukast [Singulair] 10 mg PO HS 07/14/13 [History] Fluticasone/Vilanterol [Breo Ellipta 200-25 Mcg INH] 1 puff INHALATION RT-DAILY 11/19/15 [History] Mometasone Inhalr 220 Mcg/Puff [Asmanex] 2 puff INHALATION RT-DAILY 03/07/16 [History] DULoxetine HCL [Cymbalta] 60 mg PO DAILY 11/13/16 [History] Esomeprazole Magnesium [NexIUM] 40 mg PO DAILY 01/05/17 [History] Fluticasone Nasal [place] [Flonase Nasal [place]] 2 spray EA NOSTRIL BID 01/05/17 [History] ALPRAZolam [Xanax] 0.5 mg PO TID PRN 12/01/17 [History] Cholecalciferol (Vitamin D3) [Vitamin D3] 12,000 unit PO DAILY 12/01/17 [History] Cholestyramine (with Sugar) [Questran Packet] 4 gm PO BID 12/01/17 [History] Xeomin 100 unit IM Q90D 12/01/17 [History] traZODone HCL 150 mg PO HS 12/01/17 [History] Ergocalciferol (Vitamin D2) [Drisdol] 50,000 unit PO FR 09/06/18 [History] Fluconazole [Diflucan] 200 mg PO DAILY PRN 09/06/18 [History] Hydrocortisone [Cortef] 10 mg PO DAILY 09/06/18 [History] Levothyroxine Sodium [Synthroid] 50 mcg PO DAILY 09/06/18 [History] Prochlorperazine [Compazine] 10 mg PO TID PRN 09/06/18 [History] Topiramate [Topamax] 100 mg PO HS 09/06/18 [History] HYDROmorphone [Dilaudid] 4 mg PO Q4H PRN #36 tab 09/10/18 [Rx] Follow up Appointment(s)/Referral(s): Seferino Dougherty DO [Primary Care Provider] - 09/17/18 9:30 am Tino Boyle MD [STAFF PHYSICIAN] - 1 Week (Patient to appointment. Office closed.) Activity/Diet/Wound Care/Special Instructions: Diet: Regular Follow-up PCP within 1-2 days discharge. Please follow-up with your director internal communications at [facility] within 1 week of discharge. Take all medications as advised. Come back to the ED or call 911 for worsening abdominal pain not responding to medication, intractable nausea or vomiting, dizziness or worsening of your current symptoms. Discharge Disposition: HOME SELF-CARE
== END 2018-09-10 16:04 | disposition home or self-care (01) | DRG 389 ==
LOC: EC 16:06 → 4SSUR 19:42
PROVIDERS: ADMIT Internal Medicine; ATTEND Internal Medicine
PROC: 0DJD8ZZ Inspection of Lower Intestinal Tract, Via Natural or Artificial Opening Endoscopic (ICD-10-PCS; principal; 2018-09-08 14:15)
PROC: 0DD78ZX Extraction of Stomach, Pylorus, Via Natural or Artificial Opening Endoscopic, Diagnostic (ICD-10-PCS; principal; 2018-09-08 14:15)
DX: K56.7 Ileus, unspecified (principal); E27.40 Unspecified adrenocortical insufficiency; H46.9 Unspecified optic neuritis; K56.2 Volvulus; D64.9 Anemia, unspecified; E03.9 Hypothyroidism, unspecified; E55.9 Vitamin D deficiency, unspecified; E78.5 Hyperlipidemia, unspecified; F32.9 Major depressive disorder, single episode, unspecified; F41.9 Anxiety disorder, unspecified; G35 Multiple sclerosis; G89.4 Chronic pain syndrome; I49.8 Other specified cardiac arrhythmias; J32.9 Chronic sinusitis, unspecified; J44.9 Chronic obstructive pulmonary disease, unspecified; K21.9 Gastro-esophageal reflux disease without esophagitis; K29.70 Gastritis, unspecified, without bleeding; K58.9 Irritable bowel syndrome, unspecified; M79.7 Fibromyalgia; Z79.52 Long term (current) use of systemic steroids; Z79.890 Hormone replacement therapy; Z79.899 Other long term (current) drug therapy; Z81.1 Family history of alcohol abuse and dependence; Z82.49 Family history of ischemic heart disease and other diseases of the circulatory system; Z82.5 Family history of asthma and other chronic lower respiratory diseases; Z90.49 Acquired absence of other specified parts of digestive tract; Z90.710 Acquired absence of both cervix and uterus; Z96.643 Presence of artificial hip joint, bilateral; Z96.651 Presence of right artificial knee joint; Z79.51 Long term (current) use of inhaled steroids; Z79.891 Long term (current) use of opiate analgesic; Z88.1 Allergy status to other antibiotic agents; Z91.040 Latex allergy status; Z88.2 Allergy status to sulfonamides; Z88.8 Allergy status to other drugs, medicaments and biological substances; Z91.048 Other nonmedicinal substance allergy status; R74.0 Nonspecific elevation of levels of transaminase and lactic acid dehydrogenase [LDH]
CPT/HCPCS: 36415; 43239; 45378; 74177; 76705; 80053; 80076; 81003; 83605; 83690; 85025; 85610; 85652; 86140; 87324; 88305; 93005; 94640; 96361; 96374; 96375; 96376; 99285

== ENCOUNTER → 2018-09-17 | Outpatient (CLI) | payer MEDICARE ==
--- NOTE | 2018-09-17 16:13 | CT ---
EXAMINATION TYPE: CT lumbar spine wo con DATE OF EXAM: 09/17/2018 COMPARISON: None HISTORY: low back pain CT DLP: 760.[address] of the lumbar spine was performed. Bone and soft tissue window settings are submitted as well as coronal and sagittal reconstructions. L1-L2: Normal disc space height. No disc herniation protrusion or central stenosis. No facet joint arthropathy. No evidence for foraminal encroachment. L2-L3: Normal disc space height. No disc herniation protrusion or central stenosis. No facet joint arthropathy. No evidence for foraminal encroachment. L3-L4: Mild degenerative disc space narrowing. Posterior disc bulge with mild effacement ventral thec al sac. No evidence for herniation or central stenosis. No evidence for lateral recess stenosis. Mild bilateral foraminal encroachment. L4-L5: Mild degenerative disc space narrowing. Posterior disc bulge with mild effacement ventral thec al sac. No evidence for herniation or central stenosis. No evidence for lateral recess stenosis. Mild bilateral foraminal encroachment. L5-S1: Mild degenerative disc space narrowing. Posterior disc bulge with mild effacement ventral thec al sac. No evidence for herniation or central stenosis. No evidence for lateral recess stenosis. Mild bilateral foraminal encroachment. No paraspinal masses are identified. Lumbar segments are free if fracture. IMPRESSION: 1. Mild degenerative disc space narrowing and disc bulging at L3-4 through L5-S1.
== END | disposition home or self-care (01) ==
LOC: RADCTMAIN 15:34
PROVIDERS: ATTEND Physical Medicine & Rehabilitation
DX: M99.73 Connective tissue and disc stenosis of intervertebral foramina of lumbar region (principal); M51.26 Other intervertebral disc displacement, lumbar region; M51.27 Other intervertebral disc displacement, lumbosacral region; G35 Multiple sclerosis; M54.2 Cervicalgia; M25.561 Pain in right knee; M25.562 Pain in left knee; M25.511 Pain in right shoulder; M25.512 Pain in left shoulder
CPT/HCPCS: 72131

== ENCOUNTER 2018-09-24 13:19 | Emergency (ER) | payer MEDICARE ==
[2018-09-24] MEDS ORDERED: FAMOTIDINE 20 MG/2 ML VIAL IV STA (13:29)
--- NOTE | 2018-09-24 14:32 | ED ---
Allergic Reaction HPI - General Chief complaint: Allergic Reaction Stated complaint: Allergic reaction Time Seen by Provider: 09/24/18 13:19 Source: patient, EMS, RN notes reviewed, old records reviewed Mode of arrival: EMS Limitations: no limitations - History of Present Illness Initial Comments: This is a 53-year-old female history of MS, COPD and bee sting ALLERGIES who was stung on the back of her neck just prior to being transported by EMS. He started having a reaction right away she did call 911 this did respond she received IV steroids as well as IV Benadryl and 1 shot of sub-Q epinephrine. She did start respond was feeling better though she was feeling cold at the time of arrival. Prior to this episode she was feeling her normal self. No other modifying factors at this time. MD Complaint: allergic reaction - Related Data Home Medications Medication Instructions Recorded Confirmed Montelukast [Singulair] 10 mg PO HS 07/14/13 09/24/18 Fluticasone/Vilanterol [Breo 1 puff INHALATION RT-DAILY 11/19/15 09/24/18 Ellipta 200-25 Mcg INH] Mometasone Inhalr 220 Mcg/Puff 2 puff INHALATION RT-DAILY 03/07/16 09/24/18 [Asmanex] DULoxetine HCL [Cymbalta] 60 mg PO DAILY 11/13/16 09/24/18 Esomeprazole Magnesium [NexIUM] 40 mg PO DAILY 01/05/17 09/24/18 Fluticasone Nasal [place] [Flonase 2 spray EA NOSTRIL BID 01/05/17 09/24/18 Nasal [place]] ALPRAZolam [Xanax] 0.5 mg PO TID PRN 12/01/17 09/24/18 Cholecalciferol (Vitamin D3) 12,000 unit PO DAILY 12/01/17 09/24/18 [Vitamin D3] Cholestyramine (with Sugar) 4 gm PO BID 12/01/17 09/24/18 [Questran Packet] Xeomin 100 unit IM Q90D 12/01/17 09/24/18 traZODone HCL 150 mg PO HS 12/01/17 09/24/18 Ergocalciferol (Vitamin D2) 50,000 unit PO FR 09/06/18 09/24/18 [Drisdol] Fluconazole [Diflucan] 200 mg PO DAILY PRN 09/06/18 09/24/18 Hydrocortisone [Cortef] 10 mg PO DAILY 09/06/18 09/24/18 Levothyroxine Sodium [Synthroid] 50 mcg PO DAILY 09/06/18 09/24/18 Prochlorperazine [Compazine] 10 mg PO TID PRN 09/06/18 09/24/18 Topiramate [Topamax] 100 mg PO HS 09/06/18 09/24/18 Previous Rx's Medication Instructions Recorded HYDROmorphone [Dilaudid] 4 mg PO Q4H PRN #36 tab 09/10/18 Allergies Allergy/AdvReac Type Severity Reaction Status Date / Time bupropion HCl Allergy Severe Rash/Hives Verified 09/24/18 13:42 [From Wellbutrin] interferon beta Allergy Severe Rash/Hives Verified 09/24/18 13:42 interferon beta-1a Allergy Severe Rash/Hives Verified 09/24/18 13:42 [From Avonex] lamotrigine [From Lamictal] Allergy Severe Rash/Hives Verified 09/24/18 13:42 latex Allergy Severe Anaphylaxis Verified 09/24/18 13:42 oxaprozin [From Daypro] Allergy Severe Rash/Hives Verified 09/24/18 13:42 Penicillins Allergy Severe Rash/Hives Verified 09/24/18 13:42 Sulfa (Sulfonamide Allergy Severe Rash/Hives Verified 09/24/18 13:42 Antibiotics) doxycycline Allergy Unknown Rash/Hives Verified 09/24/18 13:42 adhesive Allergy Rash/Hives Verified 09/24/18 13:42 albumin human Allergy Rash/Hives Verified 09/24/18 13:42 [From Rebif (with albumin)] alcohol Allergy Rash/Hives Verified 09/24/18 13:42 [From Mastisol Adhesive] amoxicillin Allergy Rash/Hives Verified 09/24/18 13:42 bupropion [From Wellbutrin] Allergy Unknown Verified 09/24/18 13:42 dicyclomine [From Bentyl] Allergy Rash/Hives Verified 09/24/18 13:42 duloxetine [From Cymbalta] Allergy Unknown Verified 09/24/18 13:42 gabapentin Allergy Unknown Verified 09/24/18 13:42 glatiramer (copolymer 1) Allergy Unknown Verified 09/24/18 13:42 [From Copaxone] gum mastic Allergy Rash/Hives Verified 09/24/18 13:42 [From Mastisol Adhesive] interferon christian (human leuk. Allergy Unknown Verified 09/24/18 13:42 derive interferon beta-1b Allergy Unknown Verified 09/24/18 13:42 [From Betaseron] methyl salicylate Allergy Rash/Hives Verified 09/24/18 13:42 [From Mastisol Adhesive] mold Allergy Unknown Verified 09/24/18 13:42 ragweed pollen Allergy Unknown Verified 09/24/18 13:42 storax Allergy Rash/Hives Verified 09/24/18 13:42 [From Mastisol Adhesive] sulfamethoxazole Allergy Rash/Hives Verified 09/24/18 13:42 [From Bactrim] trimethoprim [From Bactrim] Allergy Rash/Hives Verified 09/24/18 13:42 gluten AdvReac Severe Nausea & Verified 09/24/18 13:42 Vomiting & Diarrhea azithromycin AdvReac Unknown Rash/Hives, Verified 09/24/18 13:42 RED SKIN, ITCHING wheat AdvReac Nausea & Verified 09/24/18 13:42 Vomiting & Diarrhea DUST Allergy ASTHMA Uncoded 09/24/18 13:42 SYMPTOMS STERISTRIPS AdvReac Severe BLISTERS Uncoded 09/24/18 13:42 TO SKIN Review of Systems ROS Statement: Those systems with pertinent positive or pertinent negative responses have been documented in the HPI. ROS Other: All systems not noted in ROS Statement are negative. Past Medical History Past Medical History: Asthma, COPD Additional Past Medical History / Comment(s): multiple sclerosis, anemia History of Any Multi-Drug Resistant Organisms: None Reported Past Surgical History: Bowel Resection, Cholecystectomy, EPS, Hernia Repair, Hysterectomy, Joint Replacement, Orthopedic Surgery, Tonsillectomy Additional Past Surgical History / Comment(s): Multiple bronchoscopies/BALs with last time being 02/05/18, bowel "twisted" with 8 inches removed, bilateral knee arthroscopies, total R knee arthroplasty, bilateral hip arthroplasties, R elbow surgery d/t trauma, L ankle breen/shultz, bilateral foot surgeries-fractured toe/pinned and neuroma removed, R rotator cuff repair, hypoglossal nerve stimulator (Inspire) for ALEXA, L power port, past picc line, sinus surgery, bilateral blepharoplasties, EGD/colonoscopy, lap Shaan fundoplasty, TTT, stone removed from R salivary gland. july 2018 rt eye surgery Past Anesthesia/Blood Transfusion Reactions: Blood Transfusion Reaction Additional Past Anesthesia/Blood Transfusion Reaction / Comment(s): HX OF BLOOD TRANSFUSION : HAS CARD STATING K ANTIBODY AFTER RECEIVING A TRANSFUSION Past Psychological History: Anxiety, Depression, PTSD Smoking Status: Never smoker Past Alcohol Use History: Rare Past Drug Use History: Marijuana - Past Family History Mother Family Medical History: Hypertension, Thyroid Disorder Additional Family Medical History / Comment(s): Mother is an alcoholic. Pt has no contact with her mother. Father Family Medical History: COPD, Hypertension Additional Family Medical History / Comment(s): Father at the age of 69yrs from emphysema. He was a smoker. Brother(s) Additional Family Medical History / Comment(s): Brother-CT X2 General Exam - General Exam Comments Initial Comments: This is a well-developed well-nourished awake alert oriented x 3 female Limitations: no limitations General appearance: alert, anxious Head exam: Present: atraumatic, normocephalic, normal inspection Eye exam: Present: normal appearance, PERRL, EOMI. Absent: scleral icterus, conjunctival injection, periorbital swelling ENT exam: Present: normal exam, mucous membranes moist, other (No stridor JVD or bruits) Neck exam: Present: other (Facing markers notes the left posterior neck mild localized erythema). Absent: tenderness, meningismus, lymphadenopathy Respiratory exam: Present: normal lung sounds bilaterally. Absent: respiratory distress, wheezes, rales, rhonchi, stridor Cardiovascular Exam: Present: regular rate, normal rhythm, normal heart sounds. Absent: systolic murmur, diastolic murmur, rubs, gallop, clicks GI/Abdominal exam: Present: soft, normal bowel sounds. Absent: distended, tenderness, guarding, rebound, rigid Extremities exam: Present: normal inspection, full ROM, normal capillary refill. Absent: tenderness, pedal edema, joint swelling, calf tenderness Back exam: Present: normal inspection Neurological exam: Present: alert, oriented X3, CN II-XII intact Psychiatric exam: Present: normal affect, normal mood Skin exam: Present: warm, dry, intact, normal color. Absent: rash Course Vital Signs 09/24/18 09/24/18 13:24 13:35 Temperature 98.1 F Pulse Rate 91 Respiratory 22 Rate Blood Pressure 98/68 O2 Sat by Pulse 100 Oximetry Medical Decision Making - Medical Decision Making The patient is much improved after the treatment that was rendered. She is feeling much improved other than some chills from the: She is sitting in right n ow. She will be discharged she does have steroids at home already as well as Benadryl and did also recommend a histamine blockers. She'll be taking her 10 mg prednisone 2 tabs twice a day for 3-5 days. Disposition Clinical Impression: Allergic reaction to insect sting Disposition: HOME SELF-CARE Condition: Good Instructions (If sedation given, give patient instructions): Insect Bite or Sting (ED) Additional Instructions: 20 mg of prednisone twice a day for 3-5 days, Benadryl when necessary, [id number] Pepcid 20 mg twice a day for 5 days. Is patient prescribed a controlled substance at d/c from ED?: No Referrals: Caryl Dougherty MD [Primary Care Provider] - 1-2 days
[2018-09-24 15:21] VITALS: BP 110/66; PULSE 95; RESP 18; TEMP 98.8
== END 2018-09-24 15:20 | disposition home or self-care (01) ==
LOC: EC 13:19
DX: T63.481A Toxic effect of venom of other arthropod, accidental (unintentional), initial encounter (principal); J44.9 Chronic obstructive pulmonary disease, unspecified; F41.9 Anxiety disorder, unspecified; F32.9 Major depressive disorder, single episode, unspecified; F43.10 Post-traumatic stress disorder, unspecified; Z96.651 Presence of right artificial knee joint; Z96.643 Presence of artificial hip joint, bilateral; Z79.51 Long term (current) use of inhaled steroids; Z79.890 Hormone replacement therapy; Z88.8 Allergy status to other drugs, medicaments and biological substances; Z91.040 Latex allergy status; Z88.0 Allergy status to penicillin; Z88.2 Allergy status to sulfonamides; Z88.1 Allergy status to other antibiotic agents; Z91.048 Other nonmedicinal substance allergy status; Z91.018 Allergy to other foods; Y93.89 Activity, other specified; Y92.89 Other specified places as the place of occurrence of the external cause
CPT/HCPCS: 96374; 99284

== ENCOUNTER → 2018-11-03 | Outpatient (CLI) | payer MEDICARE ==
[2018-11-03 10:46] LABS: Anisocytosis Slight; Basophils # (A) 0.1 k/uL (0-0.2); Basophils % (A) 1 %; Eosinophils # (A) 0.1 k/uL (0-0.7); Eosinophils % (A) 1 %; HCT 44.1 % (34.0-46.0); HGB 13.6 gm/dL (11.4-16.0); Lymphocytes # (A) 1.1 k/uL (1.0-4.8); Lymphocytes % (A) 19 %; MCHC 30.9 g/dL (31.0-37.0); Mean Platelet Volume 6.6; Monocytes # (A) 0.3 k/uL (0-1.0); Monocytes % (A) 6 %; Neutrophils # (A) 4.1 k/uL (1.3-7.7); Neutrophils % (A) 71 %; Platelet Count 324 k/uL (150-450); RBC 4.69 m/uL (3.80-5.40); RDW 16.1 % (11.5-15.5); WBC 5.8 k/uL (3.8-10.6)
[2018-11-03 17:04] LABS: Albumin 4.5 g/dL (3.80-4.90); Albumin/Globulin Ratio 2.14 (1.60-3.17); Anion Gap 12.8 mmol/L (4.00-12.00); Calcium 8.8 mg/dL (8.7-10.3); Carbon Dioxide 19.2 mmol/L (21.6-31.8); Chol/HDL Ratio 2.41; Globulin 2.1 g/dL (1.6-3.3); Total Bilirubin 0.3 mg/dL (0.2-1.2); Total Protein 6.6 g/dL (6.2-8.2)
== END | disposition home or self-care (01) ==
LOC: LABWHC1 10:23
PROVIDERS: ATTEND Internal Medicine
DX: M89.9 Disorder of bone, unspecified (principal); E55.9 Vitamin D deficiency, unspecified; R73.03 Prediabetes
CPT/HCPCS: 36415; 80053; 80061; 82024; 82533; 84439; 84443; 84481; 85025

== ENCOUNTER → 2018-11-04 | Outpatient (CLI) | payer MEDICARE ==
[2018-11-05 01:46] LABS: Amylase 54 U/L (23-121)
== END | disposition home or self-care (01) ==
LOC: LABWHC1 14:10
PROVIDERS: ATTEND Internal Medicine
DX: R10.84 Generalized abdominal pain (principal)
CPT/HCPCS: 36415; 82150; 83690

== ENCOUNTER 2019-01-04 10:49 | Day surgery (SDC) | payer MEDICARE ==
[2018-12-31 11:39] VITALS: BMI 30.4
[~2019-01-04 10:49] MED LIST changes: -LACTATED RINGERS 1,000 ML IV ONE; -LIDOCAINE 1% 20 ML VIAL (10MG/ML) FOR IV START INTRADERMA PRN; -LIDOCAINE 2% (PF) 20 MG/ML 2 ML AMP INHALATION ONE; +LIDOCAINE 2% (PF) 20 MG/ML 5 ML VIAL INHALATION ONE; -LIDOCAINE VISCOUS 2% 15 ML CUP TOPICAL ONE; +LIDOCAINE VISCOUS 300 MG/15 ML CUP MUCOUS MEM ONE; -MIDAZOLAM (PF) 2 MG/2 ML VIAL IV PRN; +SODIUM CHLORIDE 0.9% 1,000 ML IV SCH
[2019-01-04 11:01] VITALS: TEMP 97.4
[2019-01-04 11:39] LABS: Glucose,Whole Blood 89 mg/dL (75-99)
[2019-01-04] MEDS ORDERED: PROPOFOL 10 MG/ML 20 ML VIAL IV ONE (11:56)
[2019-01-04] MEDS ORDERED: fentaNYL (PF) 50 MCG/ML 2 ML AMP ONE (11:56)
[2019-01-04] MEDS ORDERED: LIDOCAINE 1% INJ 10MG/ML (20 ML MDV) ONE (11:56)
[2019-01-04] MEDS ORDERED: MIDAZOLAM 2 MG/2 ML VIAL ONE (11:56)
[2019-01-04] MEDS ORDERED: LIDOCAINE 2% INJ 20 MG/ML INTRATRACH ONE (12:05)
[2019-01-04 12:20] VITALS: BP 94/65; RESP 18
--- NOTE | 2019-01-04 12:32 | PCN ---
PROCEDURE NOTE PROCEDURE: Bronchoscopy, airway examination, therapeutic lavage, BAL right middle lobe. PREOPERATIVE DIAGNOSIS: Severe chronic bronchial asthma with retained secretions. POSTOPERATIVE DIAGNOSIS: Severe chronic bronchial asthma with retained secretions. ANESTHESIA: MOLDER HELPER/Anesthesia provided unconscious sedation and general anesthesia. The patient's procedure was done in room #1. There was informed consent and universal timeout. STRATEGIC ANALYST: Dr. Dougherty. PROCEDURE: After the patient was adequately sedated and being fully monitored, the bronchoscope was inserted through the right nostril. It passed through the right nasopharynx into the oropharynx. The hypopharynx was identified and topicalized. The hypopharyngeal structures including anterior commissure, true cords, false cords, arytenoids, piriform sinuses, right and left valleculae and epiglottis, all appeared normal. The glottic opening is topicalized. The trachea was entered. The trachea itself was relatively normal. Tracheal pastor was sharp. Right and left mainstem bronchi were topicalized. The right upper lobe and its 3 segments, the right middle lobe and its 2 segments, the right lower lobe and its 5 segments, the left upper lobe proper and its 2 segments, the lingula and its 2 segments and the left lower lobe and its 4 segments, all had similar findings throughout. There was diffuse moderate erythema hyperemia of the airways. This was consistent with moderate bronchitis. There was mild mucosal friability. There was no endobronchial masses or tumors. There were secretions noted throughout. The secretions were foamy and purulent looking. They were slightly yellow. There was no bleeding. The bronchoscope was then wedged into the right middle lobe. The BAL took place; 30 mL was recovered. The bronchoscope was then withdrawn. The patient tolerated the procedure well. There was no immediate complication. I discussed the findings with the patient afterwards. The patient will be recovered and then discharged home. MMODL / IJN: [id number] /
[2019-01-04 12:43] VITALS: PULSE 78
[2019-01-04 15:42] LABS: Appearance,BF Hazy; Nucleated Cells, Body Fluid 215 /uL; RBC, Body Fluid 1060 /uL
[2019-01-04 15:50] LABS: Mononuclear WBC,Body Fluid 23 %; Polynuclear WBC,Body Fluid 77 %; Total Cells Counted,Body Fluid 100
== END 2019-01-04 12:55 | disposition home or self-care (01) ==
LOC: ORWHC2ENDO 10:49
PROVIDERS: ATTEND Internal Medicine Critical Care Medicine
DX: J45.901 Unspecified asthma with (acute) exacerbation (principal); J44.9 Chronic obstructive pulmonary disease, unspecified; I47.1 Supraventricular tachycardia; E78.5 Hyperlipidemia, unspecified; G47.33 Obstructive sleep apnea (adult) (pediatric); M87.9 Osteonecrosis, unspecified; E27.40 Unspecified adrenocortical insufficiency; G43.909 Migraine, unspecified, not intractable, without status migrainosus; M19.90 Unspecified osteoarthritis, unspecified site; G35 Multiple sclerosis; D64.9 Anemia, unspecified; K75.9 Inflammatory liver disease, unspecified; Z90.710 Acquired absence of both cervix and uterus; Z79.51 Long term (current) use of inhaled steroids; Z79.02 Long term (current) use of antithrombotics/antiplatelets; Z79.899 Other long term (current) drug therapy; Z91.018 Allergy to other foods; Z91.048 Other nonmedicinal substance allergy status; Z91.040 Latex allergy status; Z88.0 Allergy status to penicillin; Z88.2 Allergy status to sulfonamides; Z88.1 Allergy status to other antibiotic agents; Z88.8 Allergy status to other drugs, medicaments and biological substances
CPT/HCPCS: 31624; 94640; 87798 ×3; 87496; 87498; 87529 ×2; 88108; 88305; 89050; 86308; 87252; 87502; 87634; 87070; 87205; 87116; 87102; 87206; J2001 ×3; J2250; J0461; J3010; J2704; 31645

== ENCOUNTER 2019-04-05 11:03 | Day surgery (SDC) | payer MEDICARE ==
[2019-04-04 13:17] VITALS: BMI 27.0
[~2019-04-05 11:03] MED LIST changes: -LACTATED RINGERS 1,000 ML IV SCH
[2019-04-05] MEDS ORDERED: HYDROCORTISONE SUCCINATE 100 MG/2 ML VIAL IVP ONE (12:08)
[2019-04-05 12:10] LABS: Glucose,Whole Blood 97 mg/dL (75-99)
[2019-04-05 12:15] VITALS: TEMP 98.1
[2019-04-05] MEDS ORDERED: LIDOCAINE 1% INJ 10MG/ML (20 ML MDV) ONE (12:15)
[2019-04-05] MEDS ORDERED: PROPOFOL 10 MG/ML 20 ML VIAL IV ONE (12:15)
--- NOTE | 2019-04-05 12:49 | PCN ---
PROCEDURE NOTE PROCEDURE: Bronchoscopy, airway examination, therapeutic lavage, BAL. PREOPERATIVE DIAGNOSIS: Severe asthma. POSTOP DIAGNOSIS: Severe asthma. Lo Diaz CRNA provided unconscious sedation or general anesthesia. DESCRIPTION OF PROCEDURE: The patient's place in room #1. There was informed consent and universal timeout. After the patient was adequately sedated and being fully monitored, the bronchoscope was inserted through the right nostril. It passed through the right nasopharynx into the oropharynx and then into the hypopharynx. The hypopharyngeal structures were evaluated. These included the anterior commissure, true cords, false cords, arytenoids, right and left piriform sinuses, right and left valleculae and epiglottis. All these structures appeared normal. After topicalization, the bronchoscope was pushed through the glottic opening into the trachea. The trachea was normal. The tracheal pastor was sharp. The right and left mainstem were topicalized. Right upper lobe and its 3 segments, right middle lobe and its 2 segments, right lower lobe and its 5 segments, the left upper lobe proper and its 2 segments, the lingula and its 2 segments and the left lower lobe and its 4 segments all had similar findings of moderate to severe bronchitis. There was mucosal erythema and hyperemia. They were purulent secretions that were slightly yellow noted throughout the bronchial tree. These were suctioned. The bronchoscope was then wedged into the right middle lobe. The BAL took place. The patient tolerated the procedure well. Additional secretions were suctioned. There was no immediate complication. The fluid will be sent for analysis. The patient tolerated the procedure well. MMODL / IJN: [id number] /
[2019-04-05 13:00] VITALS: BP 112/70; PULSE 92; RESP 18
[2019-04-05 18:09] LABS: Appearance,BF Hazy; Color,BF Colorless; Nucleated Cells, Body Fluid 265 /uL; RBC, Body Fluid 50 /uL
[2019-04-05 18:11] LABS: Mononuclear WBC,Body Fluid 10 %; Polynuclear WBC,Body Fluid 90 %; Total Cells Counted,Body Fluid 100
== END 2019-04-05 13:22 | disposition home or self-care (01) ==
LOC: ORWHC2ENDO 11:03
PROVIDERS: ATTEND Internal Medicine Critical Care Medicine
DX: J45.901 Unspecified asthma with (acute) exacerbation (principal); K75.4 Autoimmune hepatitis; E03.9 Hypothyroidism, unspecified; I47.1 Supraventricular tachycardia; G47.33 Obstructive sleep apnea (adult) (pediatric); M79.7 Fibromyalgia; K21.9 Gastro-esophageal reflux disease without esophagitis; G35 Multiple sclerosis; I49.8 Other specified cardiac arrhythmias; H46.9 Unspecified optic neuritis; H43.819 Vitreous degeneration, unspecified eye; J44.9 Chronic obstructive pulmonary disease, unspecified; E27.1 Primary adrenocortical insufficiency; F41.9 Anxiety disorder, unspecified; Z91.09 Other allergy status, other than to drugs and biological substances; Z88.0 Allergy status to penicillin; Z88.1 Allergy status to other antibiotic agents; Z88.2 Allergy status to sulfonamides; Z91.030 Bee allergy status; Z88.8 Allergy status to other drugs, medicaments and biological substances; Z88.6 Allergy status to analgesic agent; Z91.040 Latex allergy status; Z91.018 Allergy to other foods; Z79.899 Other long term (current) drug therapy; Z79.51 Long term (current) use of inhaled steroids; Z79.890 Hormone replacement therapy; Z98.890 Other specified postprocedural states; Z90.710 Acquired absence of both cervix and uterus; Z90.89 Acquired absence of other organs; Z90.49 Acquired absence of other specified parts of digestive tract; Z82.5 Family history of asthma and other chronic lower respiratory diseases; Z81.1 Family history of alcohol abuse and dependence; Z82.49 Family history of ischemic heart disease and other diseases of the circulatory system; Z83.49 Family history of other endocrine, nutritional and metabolic diseases
CPT/HCPCS: 94640; 88108; 88305; 89050; 87252; 87070; 87205; 87116; 87102; 87206; 31624; J0461; J1720; J2001 ×2; J2704; 87496; 87498; 87502; 87529; 87634; 87798

== ENCOUNTER → 2019-12-02 | Outpatient (CLI) | payer MEDICARE ==
--- NOTE | 2019-12-02 12:11 | XR ---
EXAMINATION TYPE: XR soft tissue neck DATE OF EXAM: 12/02/2019 COMPARISON: CT neck July 20, 2017 HISTORY: Obstructive sleep apnea. TECHNIQUE: 2 view soft tissue neck. FINDINGS: Stable left subclavian Mediport catheter terminating in right atrium. Persistent right-side d neck stimulator device in the anterior C3 level unchanged from prior. No suspicious prevertebral so ft tissue swelling. Mild to moderate concentric narrowing of the hypopharyngeal airway at C3 level un changed from 2018 CT. Region of epiglottis and vallecula remains within normal limits. No suspicious narrowing of subglottic airway on the frontal view. Emphysematous change visualized lungs noted. IMPRESSION: As above.
--- NOTE | 2019-12-02 13:03 | XR ---
EXAMINATION TYPE: XR chest 2V DATE OF EXAM: 12/02/2019 COMPARISON: Prior chest x-ray January 17, 2019 HISTORY: Obstructive sleep apnea. Inspiratory and battery placement. TECHNIQUE: Frontal and lateral views of the chest are obtained. FINDINGS: Stable left subclavian Mediport catheter terminating in the right atrium. Overlying stimula tor device with lead extending into right neck redemonstrated. There is lower lead near the anterior aspect right hemidiaphragm unchanged in position. There is no new suspicious focal air space opacity, pleural effusion, or pneumothorax seen. The cardiac silhouette size remains within normal limits. The osseous structures are intact. Cholecystectomy clips noted on lateral view. IMPRESSION: No acute cardiopulmonary process. No significant change from prior.
== END | disposition home or self-care (01) ==
LOC: RADXRMAIN 10:28
PROVIDERS: ATTEND Otolaryngology
DX: G47.33 Obstructive sleep apnea (adult) (pediatric) (principal)
CPT/HCPCS: 70360; 71046

== ENCOUNTER → 2020-01-06 | Outpatient (CLI) | payer MEDICARE ==
--- NOTE | 2020-01-06 10:47 | CT ---
EXAMINATION TYPE: CT lumbar spine wo con DATE OF EXAM: 01/06/2020 COMPARISON: CT lumbar spine 09/17/2018 HISTORY: Spinal stenosis, low back pain into right leg CT DLP: 984 mGycm Automated exposure control for dose reduction was used. An unenhanced CT of the lumbar spine was performed. Bone and soft tissue window settings are submitt ed as well as coronal and sagittal reconstructions. FINDINGS: Lumbar vertebral bodies show stable height, alignment, bone mineralization. There is multilevel spond ylosis present. No evident spinal stenosis. Multilevel posterior disc bulges are again seen. Lumbar v ertebral bodies are intact. There is no fracture or subluxation. Spina bifida occulta present at S1 a s on prior. Postop changes are noted within the abdomen L1-L2: Normal disc space height. No disc herniation protrusion or central stenosis. No facet joint arthropathy. No evidence for foraminal encroachment. L2-L3: Posterior disc bulge causes mild anterior mass effect on the thecal sac. There is some mild fa cet arthropathy. Disc bulges extending towards the neural foramina. L3-L4: Loss of disc height is present. There is some mild facet arthropathy with hypertrophy ligament um flavum. Disc bulges extending towards the neural foramina. L4-L5: Similar to L3-4 there is some loss of disc height, some facet arthropathy change is present wi th hypertrophy ligamentum flavum causing some posterior lateral mass effect on the thecal sac. Disc b ulges extending towards the neural foramina. L5-S1: Normal disc space height. No disc herniation protrusion or central stenosis. No facet joint arthropathy. No evidence for foraminal encroachment. IMPRESSION: Lumbar CT shows a similar appearance. There is mild degenerative disc disease without jennifer dent spinal stenosis. Additional findings above. No paraspinal masses are identified. Lumbar segments are intact.
== END | disposition home or self-care (01) ==
LOC: RADCTMAIN 06:39
PROVIDERS: ATTEND Family Medicine
DX: M51.26 Other intervertebral disc displacement, lumbar region (principal); M51.36 Other intervertebral disc degeneration, lumbar region; M47.816 Spondylosis without myelopathy or radiculopathy, lumbar region; M51.86 Other intervertebral disc disorders, lumbar region; M24.29 Disorder of ligament, other specified site
CPT/HCPCS: 72131

== ENCOUNTER → 2020-03-22 | Outpatient (CLI) | payer MEDICARE ==
--- NOTE | 2020-03-22 19:00 | US ---
EXAMINATION TYPE: US thyroid st tissue head/neck DATE OF EXAM: 03/22/2020 COMPARISON: NONE CLINICAL HISTORY: 54-year-old female R22.1 Neck mass. TECHNIQUE: Multiple sonographic images of the thyroid gland are obtained. FINDINGS: GLAND SIZE: Right Lobe: 5.0 x 1.5 x 1.3 cm Overall Parenchyma: homogenous Left Lobe: 4.3 x 1.2 x 1.0 cm Overall Parenchyma: homogeneous Isthmus Thickness: 0.2 cm NODULES RIGHT: # of nodules measured on right: 0 LEFT: # of nodules measured on left: 0 ISTHMUS: # of nodules measured in the isthmus: 0 Dermatological Surgeon notes: Bilateral neck scanned, no evidence of lymphadenopathy. No evident neck masses. IMPRESSION: derline to mild thyromegal No discrete nodules
== END | disposition home or self-care (01) ==
LOC: RADUSWWP 12:08
PROVIDERS: ATTEND Family Medicine
DX: R22.1 Localized swelling, mass and lump, neck (principal)
CPT/HCPCS: 76536

== ENCOUNTER → 2020-04-12 | Outpatient (CLI) | payer MEDICARE ==
--- NOTE | 2020-04-12 12:12 | CT ---
EXAMINATION TYPE: CT soft tissue neck w con DATE OF EXAM: 04/12/2020 COMPARISON: None HISTORY: Dysphagia, neck mass CT DLP: 318.10 mGycm CONTRAST: CT scan of the neck is performed with IV Contrast, patient injected with 100 ml mL of Isovue 300. Contrast enhanced CT of the neck was performed from the skull base through the lung apices. Examinati on is limited from streak artifact from dental amalgam. There is subglossal stimulator in place. AIRWAY: The supraglottic, glottic, and subglottic portions of the airway appear patent and free of mass. SALIVARY GLANDS: The submandibular and parotid glands are free of mass or inflammatory process. THYROID GLAND: No nodules or masses seen. LYMPH NODES: No adenopathy seen greater than 1cm. LUNG APICES: No nodule or mass is seen. OTHER: Vascular structures are patent. No significant degenerative change of the cervical spine. N o abscess seen. IMPRESSION: No distinct mass is appreciated. Correlate clinically.
--- NOTE | 2020-04-12 12:44 | FL ---
Modified barium swallow. HISTORY: Dysphagia. Modified barium swallow was performed with the department of speech pathology. The patient was prese nted with various consistencies of barium. There is no evidence for aspiration or penetration. Full report is to follow from the department of speech pathology. Impression: Normal study.
== END | disposition home or self-care (01) ==
LOC: RADCTMAIN 10:16
PROVIDERS: ATTEND Otolaryngology
DX: R22.1 Localized swelling, mass and lump, neck (principal); R13.10 Dysphagia, unspecified
CPT/HCPCS: 92611; 74230; 70491; Q9967

== ENCOUNTER 2020-05-03 06:41 | Day surgery (SDC) | payer MEDICARE ==
[2020-05-02 09:42] VITALS: BMI 24.6
[~2020-05-03 06:41] MED LIST changes: -ALBUTEROL NEB (CONC) 2.5 MG/0.5 ML INHALATION ONE; -ATROPINE SULFATE 0.4 MG/ML 1 ML VIAL IM ONE; +LACTATED RINGERS 1,000 ML IV SCH; -LIDOCAINE 2% (PF) 20 MG/ML 5 ML VIAL INHALATION ONE; -LIDOCAINE VISCOUS 300 MG/15 ML CUP MUCOUS MEM ONE; -SODIUM CHLORIDE 0.9% 1,000 ML IV SCH
[2020-05-03 07:03] VITALS: RESP 16; TEMP 97.7
[2020-05-03] MEDS ORDERED: LIDOCAINE 1% (10MG/ML) FOR IV START INTRADERMA ONE (07:18)
[2020-05-03] MEDS ORDERED: MIDAZOLAM 2 MG/2 ML VIAL ONE (07:27)
--- NOTE | 2020-05-03 07:37 | P.PCN ---
Date of Procedure: 05/03/20 Procedure(s) Performed: Preoperative diagnosis: Multiple sclerosis Post operative diagnoses: Multiple sclerosis Procedure= lumbar puncture Anesthesia = never sedation with Versed 2 mg , and local infiltration with lidocaine 1% 2 mL. Condition: stable Complication: none. Description of the procedure procedure risk and benefits discussed with the patient and family, consent signed. Patient and the procedure area placed in sitting position , back prepped with chlorhexidine 3 times been local infiltration of the skin and subcutaneous tissue with lidocaine 1% 2 mL for skin and subcu interstitial frustrations at L4 5 levels then 22-gauge Quincke-type needle advanced slowly at L4- 5 interlaminar space there was positive cerebrospinal fluid which was clear, no heme, no paresthesia ,total of 9 ML of clear cerebrospinal fluid collected in 4 different tubes 2-2-1/2 mL in each, then the needle removed and a Band-Aid applied and patient tolerated the procedure well without any complications. Sedation was given 2 the patient's anxiety, vital signs monitored throughout the procedure
[2020-05-03] MEDS ORDERED: IV FLUID CONTINUATION 1,000 ML IV ONE (07:41)
[2020-05-03 09:08] VITALS: BP 96/54; PULSE 71
[2020-05-03 13:38] LABS: Glucose,CSF 57 mg/dL (40-70); Total Protein,CSF 57 mg/dL (12-60)
[2020-05-03 15:32] LABS: Appearance,CSF Clear; CSF Tube Number 4; Nucleated Cells, CSF 2 u/L (0-5); Red Blood Cell,CSF 0 u/L (0-10)
[2020-05-04 14:57] LABS: IgG - CSF 3.6 mg/dL (0.0 - 3.4); IgG Synthesis Rate 1.38 mg/day (0.00 - 3.00); IgG/Albumin Index (CSF) 0.62 (0.00 - 0.77)
== END 2020-05-03 09:21 | disposition home or self-care (01) ==
LOC: ORPAIN 06:41
PROVIDERS: ATTEND Specialist
DX: G35 Multiple sclerosis (principal); Z88.8 Allergy status to other drugs, medicaments and biological substances
CPT/HCPCS: 88108; 84157; 82945; 82040; 82042; 82784; 83916; 83873; 89050; 62270; J2250

== ENCOUNTER 2020-05-07 09:49 | Emergency (ER) | payer MEDICARE ==
[2020-05-07] MEDS ORDERED: METOCLOPRAMIDE 5 MG/ML 2 ML VIAL IVP STA (10:38)
[2020-05-07] MEDS ORDERED: SODIUM CHLORIDE 0.9% 1,000 ML IV STA (10:38)
[2020-05-07] MEDS ORDERED: KETOROLAC 15 MG/ML 1 ML VIAL IVP STA (10:38)
[2020-05-07] MEDS ORDERED: diphenhydrAMINE 50 MG/ML 1 ML VIAL IVP STA (10:38)
[2020-05-07] MEDS ORDERED: CAFFEINE-SODIUM BENZOATE 500 MG in SODIUM CHLORIDE 0.9% 1,000 ML IVPB ONE (10:55)
[2020-05-07 11:09] LABS: Basophils % (A) 1 %; Eosinophils # (A) 0.1 k/uL (0-0.7); Eosinophils % (A) 2 %; HCT 38.6 % (34.0-46.0); HGB 12.2 gm/dL (11.4-16.0); Lymphocytes # (A) 1.2 k/uL (1.0-4.8); Lymphocytes % (A) 28 %; MCH 29.9 pg (25.0-35.0); MCHC 31.7 g/dL (31.0-37.0); MCV 94.4 fL (80.0-100.0); Mean Platelet Volume 6.6; Monocytes # (A) 0.3 k/uL (0-1.0); Monocytes % (A) 8 %; Neutrophils # (A) 2.6 k/uL (1.3-7.7); Neutrophils % (A) 59 %; Platelet Count 270 k/uL (150-450); RBC 4.09 m/uL (3.80-5.40); RDW 13.6 % (11.5-15.5); WBC 4.3 k/uL (3.8-10.6)
[2020-05-07 11:20] LABS: Potassium 4.1 mmol/L (3.5-5.1)
--- NOTE | 2020-05-07 11:27 | ED ---
General Adult HPI - General Source: patient Mode of arrival: ambulatory Limitations: no limitations <Andrew Mattson - Last Filed: 05/07/20 14:16> <Vonnie Morales - Last Filed: 05/08/20 22:59> - General Chief complaint: Headache Stated complaint: headache/vomiting Time Seen by Provider: 05/07/20 10:05 - History of Present Illness Initial comments: 55-year-old female with a couple dictated past medical history presents to the emergency room for a chief complaint of headache. Patient has a history of multiple sclerosis. She cannot undergo MRI due to foreign body. Therefore her neurologist ordered a spinal tap 4 days ago that was performed in this hospital. Patient states that tonight she developed a headache. She noticed that laying down makes her headache away however getting up makes it worse and. Patient states she has been laying in bed and laying on the couch to help alleviate her pain. States she has been drinking caffeine all weekend. And states that she notices her headache worsens when she gets up such as letting her dog out. Patient also has had a bit of nausea vomiting over the past couple days.Patient has no other complaints at this time including shortness of breath, chest pain, abdominal pain, or visual changes. (Andrew Mattson) - Related Data Home Medications Medication Instructions Recorded Confirmed Montelukast [Singulair] 10 mg PO HS 07/14/13 05/07/20 Fluticasone/Vilanterol [Breo 1 puff INHALATION RT-DAILY 11/19/15 05/07/20 Ellipta 200-25 Mcg INH] DULoxetine HCL [Cymbalta] 60 mg PO DAILY 11/13/16 05/07/20 Esomeprazole Magnesium [NexIUM] 40 mg PO BID 01/05/17 05/07/20 Fluticasone Nasal [place] [Flonase 2 spr EA NOSTRIL BID 01/05/17 05/07/20 Nasal [place]] ALPRAZolam [Xanax] 0.5 mg PO BID PRN 12/01/17 05/07/20 Cholestyramine (with Sugar) 4 gm PO BID 12/01/17 05/07/20 [Questran Packet] Xeomin 1 dose IM Q90D 12/01/17 05/07/20 traZODone HCL 150 mg PO HS 12/01/17 05/07/20 Hydrocortisone [Cortef] 15 mg PO DAILY 09/06/18 05/07/20 Prochlorperazine [Compazine] 10 mg PO TID PRN 09/06/18 05/07/20 Topiramate [Topamax] 100 mg PO BID 09/06/18 05/07/20 Hydrocortisone [Cortef] 5 mg PO HS 12/31/18 05/07/20 methocarbamoL [Robaxin] 1,000 mg PO Q8H PRN 01/17/19 05/07/20 Promethaz-Cod 6.25-10 mg/5 ml 5 ml PO Q4-6H PRN 01/18/19 05/07/20 [Phenergan with Codeine] Cholecalciferol [Vitamin D3 (25 50 mcg PO DAILY 05/02/20 05/07/20 Mcg = 1000 Iu)] Colchicine 0.6 mg PO BID 05/02/20 05/07/20 EPINEPHrine (Auto Inject) [Epipen] 0.3 mg IM ONCE PRN 05/02/20 05/07/20 Umeclidinium [place] [Incruse 1 puff INHALATION RT-DAILY 05/02/20 05/07/20 Ellipta] Albuterol Inhaler [Ventolin Hfa 2 puff INHALATION RT-QID PRN 05/07/20 05/07/20 Inhaler] Famotidine 40 mg PO HS 05/07/20 05/07/20 Gabapentin [Neurontin] 100 mg PO TID PRN 05/07/20 05/07/20 Levothyroxine Sodium [Synthroid] 75 mcg PO DAILY 05/07/20 05/07/20 Allergies Allergy/AdvReac Type Severity Reaction Status Date / Time bupropion HCl Allergy Severe Rash/Hives Verified 05/07/20 12:06 [From Wellbutrin] interferon beta Allergy Severe Rash/Hives Verified 05/07/20 12:06 interferon beta-1a Allergy Severe Rash/Hives Verified 05/07/20 12:06 [From Avonex] lamotrigine [From Lamictal] Allergy Severe Rash/Hives Verified 05/07/20 12:06 latex Allergy Severe Anaphylaxis Verified 05/07/20 12:06 oxaprozin [From Daypro] Allergy Severe Rash/Hives Verified 05/07/20 12:06 Penicillins Allergy Severe Rash/Hives Verified 05/07/20 12:06 Sulfa (Sulfonamide Allergy Severe Rash/Hives Verified 05/07/20 12:06 Antibiotics) doxycycline Allergy Unknown Rash/Hives Verified 05/07/20 12:06 adhesive Allergy Rash/Hives Verified 05/07/20 12:06 albumin human Allergy Rash/Hives Verified 05/07/20 12:06 [From Rebif (with albumin)] alcohol Allergy Rash/Hives Verified 05/07/20 12:06 [From Mastisol Adhesive] (in surgical glue) amoxicillin Allergy Rash/Hives Verified 05/07/20 12:06 bee venom protein (honey bee) Allergy Anaphylaxis Verified 05/07/20 12:06 bupropion [From Wellbutrin] Allergy Unknown Verified 05/07/20 12:06 dicyclomine [From Bentyl] Allergy Rash/Hives Verified 05/07/20 12:06 gabapentin Allergy Unknown Verified 05/07/20 12:06 glatiramer (copolymer 1) Allergy Unknown Verified 05/07/20 12:06 [From Copaxone] gum mastic Allergy Rash/Hives Verified 05/07/20 12:06 [From Mastisol Adhesive] insect venom Allergy Anaphylaxis Verified 05/07/20 12:06 interferon christian (human leuk. Allergy Unknown Verified 05/07/20 12:06 derive interferon beta-1b Allergy Unknown Verified 05/07/20 12:06 [From Betaseron] methyl salicylate Allergy Rash/Hives Verified 05/07/20 12:06 [From Mastisol Adhesive] Milk Containing Products Allergy Unknown Verified 05/07/20 12:06 [Dairy] mold Allergy Unknown Verified 05/07/20 12:06 morphine Allergy Unknown Verified 05/07/20 12:06 ragweed pollen Allergy Unknown Verified 05/07/20 12:06 storax Allergy Rash/Hives Verified 05/07/20 12:06 [From Mastisol Adhesive] sulfamethoxazole Allergy Rash/Hives Verified 05/07/20 12:06 [From Bactrim] trimethoprim [From Bactrim] Allergy Rash/Hives Verified 05/07/20 12:06 gluten AdvReac Severe Nausea & Verified 05/07/20 12:06 Vomiting & Diarrhea azithromycin AdvReac Unknown Rash/Hives, Verified 05/07/20 12:06 RED SKIN, ITCHING wheat AdvReac Nausea & Verified 05/07/20 12:06 Vomiting & Diarrhea STERISTRIPS Allergy Severe BLISTERS Uncoded 05/07/20 12:06 TO SKIN DUST Allergy ASTHMA Uncoded 05/07/20 12:06 SYMPTOMS steri strips Allergy Rash/Hives Uncoded 05/07/20 12:06 wasp Allergy Anaphylaxis Uncoded 05/02/20 09:16 Review of Systems ROS Other: All systems not noted in ROS Statement are negative. <Andrew Mattson - Last Filed: 05/07/20 14:16> ROS Other: All systems not noted in ROS Statement are negative. <Vonnie Morales - Last Filed: 05/08/20 22:59> ROS Statement: Those systems with pertinent positive or pertinent negative responses have been documented in the HPI. Past Medical History Past Medical History: Asthma, COPD, Eye Disorder, Fibromyalgia, GERD/Reflux, Hyperlipidemia, Liver Disease, Neurologic Disorder, Osteoarthritis (OA), Pneumonia, Sleep Apnea/CPAP/BIPAP, Supraventricular Tachycardia (SVT) Additional Past Medical History / Comment(s): Bronchitis, multiple sclerosis, lupus, chronic lumbago, migraines, adrenal insufficiency, POTS, avascular necrosis hips, bilateral optic neuritis, autoimmune hepatitis, anemia, ALEXA w/ Inspire implant surgery. Ongoing coughing, dyspnea, ill since 11/2018. Paricarditis History of Any Multi-Drug Resistant Organisms: None Reported Past Surgical History: Bowel Resection, Cholecystectomy, EPS, Hernia Repair, Hysterectomy, Joint Replacement, Orthopedic Surgery, Tonsillectomy Additional Past Surgical History / Comment(s): left foot, second and third digit surgery 01/12/20, current walking boot to [facility]. Multiple bronchoscopies/BALs, bowel "twisted" w/ 8 inches removed, bilat knee arthroscopies, total R knee arthroplasty, bilat hip arthroplasties, R elbow surgery d/t trauma, L ankle breen/shultz, bilat foot surgeries-fractured toe/pinned, neuroma removed, R rot ator cuff repair, hypoglossal nerve stimulator (Inspire) for ALEXA, L power port (mediport), past picc line, sinus surgery, bilat blepharoplasties, EGD/colonoscopy, lap Shaan fundoplasty, TTT, stone removed from R salivary gland. 07/2018 jayleen eye surgery. Past Anesthesia/Blood Transfusion Reactions: Blood Transfusion Reaction Additional Past Anesthesia/Blood Transfusion Reaction / Comment(s): HX OF BLOOD TRANSFUSION : HAS a CARD STATING K ANTIBODY AFTER RECEIVING A TRANSFUSION Past Psychological History: Anxiety, Depression Smoking Status: Never smoker Past Alcohol Use History: None Reported Past Drug Use History: Marijuana - Past Family History Mother Family Medical History: Hypertension, Thyroid Disorder Additional Family Medical History / Comment(s): Mother is an alcoholic. Pt has no contact with her mother. Father Family Medical History: COPD, Hypertension Additional Family Medical History / Comment(s): Father at the age of 69yrs from emphysema. He was a smoker. Brother(s) Additional Family Medical History / Comment(s): Brother-PR X2 <Andrew Mattson P - Last Filed: 05/07/20 14:16> General Exam Limitations: no limitations General appearance: alert, in no apparent distress Head exam: Present: atraumatic, normocephalic, normal inspection Eye exam: Present: normal appearance, PERRL, EOMI. Absent: scleral icterus, co njunctival injection, periorbital swelling ENT exam: Present: normal exam, mucous membranes moist Neck exam: Present: normal inspection, full ROM. Absent: tenderness Respiratory exam: Present: normal lung sounds bilaterally. Absent: respiratory distress, wheezes, rales, rhonchi, stridor Cardiovascular Exam: Present: regular rate, normal rhythm, normal heart sounds. Absent: systolic murmur, diastolic murmur, rubs, gallop, clicks GI/Abdominal exam: Present: soft, normal bowel sounds. Absent: distended, tenderness, guarding, rebound, rigid Neurological exam: Present: alert, oriented X3, normal gait, other (GSC 15) <Andrew Mattson P - Last Filed: 05/07/20 14:16> Course Vital Signs 05/07/20 05/07/20 05/07/20 09:52 11:40 12:00 Temperature 97.4 F L Pulse Rate 81 68 63 Respiratory 18 16 16 Rate Blood Pressure 98/69 94/60 98/64 O2 Sat by Pulse 98 100 100 Oximetry 05/07/20 05/07/20 13:00 14:35 Temperature 98.2 F Pulse Rate 75 63 Respiratory 20 18 Rate Blood Pressure 99/56 112/74 O2 Sat by Pulse 99 100 Oximetry Medical Decision Making - Lab Data Result diagrams: 05/07/20 10:51 05/07/20 10:51 <Andrew Mattson - Last Filed: 05/07/20 14:16> - Lab Data Result diagrams: 05/07/20 10:51 05/07/20 10:51 <Vonnie Morales - Last Filed: 05/08/20 22:59> - Medical Decision Making Vitals are stable. Patient is well appearing. No focal neurologic deficits. Symptoms are consistent with a spinal headache. Patient was given migraine cocktail and IV caffeine. Did have significant improvement in symptoms. Headache is resolved. She is able to ambulate around the ER. At this time patient will be discharged home. She'll follow up outpatient. She'll return for any worsening symptoms. (Andrew Mattson) I was available for consultation in the emergency department. The history and physical exam were done by the midlevel provider. I was consulted for this patients care. I reviewed the case with the midlevel provider and based on their presentation of the patient, I agree with the assessment, medical decision making and plan of care as documented. Chart was dictated using [employer] dictation software. Attempts were made to correct any dictation errors however some typographical errors may persist. (Vonnie Morales) - Lab Data Lab Results 05/07/20 05/07/20 Range/Units 10:51 10:51 WBC 4.3 (3.8-10.6) k/uL RBC 4.09 (3.80-5.40) m/uL Hgb 12.2 (11.4-16.0) gm/dL Hct 38.6 (34.0-46.0) % MCV 94.4 (80.0-100.0) fL MCH 29.9 (25.0-35.0) pg MCHC 31.7 (31.0-37.0) g/dL RDW 13.6 (11.5-15.5) % Plt Count 270 (150-450) k/uL MPV 6.6 Neutrophils % 59 % Lymphocytes % 28 % Monocytes % 8 % Eosinophils % 2 % Basophils % 1 % Neutrophils # 2.6 (1.3-7.7) k/uL Lymphocytes # 1.2 (1.0-4.8) k/uL Monocytes # 0.3 (0-1.0) k/uL Eosinophils # 0.1 (0-0.7) k/uL Basophils # 0.0 (0-0.2) k/uL Sodium 136 L (137-145) mmol/L Potassium 4.1 (3.5-5.1) mmol/L Chloride 106 (98-107) mmol/L Carbon Dioxide 26 (22-30) mmol/L Anion Gap 4 mmol/L BUN 12 (7-17) mg/dL Creatinine 1.05 H (0.52-1.04) mg/dL Est GFR (CKD-EPI)AfAm 70 (>60 ml/min/1.73 sqM) Est GFR (CKD-EPI)NonAf 60 (>60 ml/min/1.73 sqM) Glucose 99 (74-99) mg/dL Calcium 9.0 (8.4-10.2) mg/dL Disposition Is patient prescribed a controlled substance at d/c from ED?: No Time of Disposition: 14:19 <Andrew Mattson P - Last Filed: 05/07/20 14:16> <Vonnie Morales - Last Filed: 05/08/20 22:59> Clinical Impression: Headache Disposition: HOME SELF-CARE Condition: Good Instructions (If sedation given, give patient instructions): Acute Headache (ED) Additional Instructions: Please follow-up with primary care. Please return to the emergency room for any worsening symptoms. Referrals: Chantal Salgado MD [Primary Care Provider] - 1-2 days
[2020-05-07 14:44] VITALS: BP 112/74; PULSE 63; RESP 18; TEMP 98.2
== END 2020-05-07 14:35 | disposition home or self-care (01) ==
LOC: EC 09:49
DX: R51.9 Headache, unspecified (principal); J44.9 Chronic obstructive pulmonary disease, unspecified; M79.7 Fibromyalgia; M19.90 Unspecified osteoarthritis, unspecified site; K21.9 Gastro-esophageal reflux disease without esophagitis; G47.33 Obstructive sleep apnea (adult) (pediatric); F32.9 Major depressive disorder, single episode, unspecified; F41.9 Anxiety disorder, unspecified; Z79.899 Other long term (current) drug therapy; Z79.890 Hormone replacement therapy; Z88.8 Allergy status to other drugs, medicaments and biological substances; Z91.040 Latex allergy status; Z88.0 Allergy status to penicillin; Z88.2 Allergy status to sulfonamides; Z88.1 Allergy status to other antibiotic agents; Z88.6 Allergy status to analgesic agent; Z91.048 Other nonmedicinal substance allergy status; Z91.030 Bee allergy status; Z91.038 Other insect allergy status; Z91.011 Allergy to milk products; Z88.5 Allergy status to narcotic agent; Z91.018 Allergy to other foods; Z90.49 Acquired absence of other specified parts of digestive tract; Z99.89 Dependence on other enabling machines and devices; Z96.651 Presence of right artificial knee joint; Z96.643 Presence of artificial hip joint, bilateral
CPT/HCPCS: 36415; 80048; 85025; 99284; 96365; 96375 ×3; 96361 ×3; J1200; J2765; J1885

== ENCOUNTER → 2020-05-07 | Outpatient (CLI) | payer MEDICARE ==
--- NOTE | 2020-05-07 11:52 | FL ---
EXAMINATION TYPE: FL barium swallow DATE OF EXAM: 05/07/2020 CLINICAL INDICATION: 55 year-old female R13.10, dysphagia. Sensation of food sticking in the midstern al region for several months. COMPARISON: Correlation CT soft tissue neck 04/12/2020 Total Fluoroscopy Time: 2.4 minutes Total images: 44 FINDINGS: Mild aspiration is encountered. This is followed by a coughing episode. The patient had some trouble swallowing the thick barium consistency. Mild residuals are noted in the piriform sinus which the pat ient is able to feel. There is mild hypertrophy of the cricopharyngeus. However, otherwise, the hypopharyngeal anatomy is p reserved. The thoracic portion has a normal course and caliber and normal motility. The mucosa is normal and no persistent filling defect is encountered. No hiatal hernia is present. No gastroesophageal reflux is identified. IMPRESSION: 1. Mild aspiration is encountered followed by a coughing episode. The patient reports frequent simila r episodes with food. Despite the recent negative dynamic swallow study, consider speech pathology re ferral for any potential exercises or interventions. 2. Mild CP hypertrophy without obstruction. 3. Otherwise, unremarkable esophagram.
== END ==
LOC: RADUSWWP 08:48
PROVIDERS: ATTEND Otolaryngology
DX: R13.10 Dysphagia, unspecified (principal); Y84.4 Aspiration of fluid as the cause of abnormal reaction of the patient, or of later complication, without mention of misadventure at the time of the procedure
CPT/HCPCS: 74220

== ENCOUNTER → 2020-09-21 | Outpatient (CLI) | payer MEDICARE ==
--- NOTE | 2020-10-01 13:36 | MM ---
Reason for exam: screening (asymptomatic). Last mammogram was performed 6 years and 6 months ago. History: Patient is postmenopausal and is nulliparous. Family history of breast cancer in paternal grandmother and breast cancer in paternal aunt. Benign excisional biopsy of the left breast, June 2005. Ultrasound-guided core biopsy of the right breast, June 17, 2004. Ultrasound-guided core biopsy of the right breast, June 17, 2004. 2 core biopsies of the right breast. Took hormonal contraceptives for 7 years beginning at age 27. Took estrogen for 9 years beginning at age 38. Physical Findings: A clinical breast exam by your physician is recommended on an annual basis and results should be correlated with mammographic findings. MG Screening Mammo w CAD Bilateral CC and MLO view(s) were taken. Prior study comparison: March 31, 2014, bilateral MG screening mammo w CAD. The breast tissue is heterogeneously dense. This may lower the sensitivity of mammography. There are benign appearing round calcifications bilaterally. Previous mammotome biopsy in the right breast. There is no discrete abnormality. Right axillary pacemaker noted. ASSESSMENT: Benign, BI-RAD 2 RECOMMENDATION: Routine screening mammogram of both breasts in 1 year.
== END | disposition home or self-care (01) ==
LOC: RADMAMWWP 15:34
PROVIDERS: ATTEND Family Medicine
DX: Z12.31 Encounter for screening mammogram for malignant neoplasm of breast (principal)
CPT/HCPCS: 77067

== ENCOUNTER → 2020-09-21 | Outpatient (CLI) | payer MEDICARE ==
[2020-09-22 05:09] LABS: T4, Free (Free Thyroxine) 0.8 ng/dL (0.80-1.80)
== END | disposition home or self-care (01) ==
LOC: LABWHC1 15:36
PROVIDERS: ATTEND Internal Medicine
DX: E03.9 Hypothyroidism, unspecified (principal); E55.9 Vitamin D deficiency, unspecified
CPT/HCPCS: 36415; 82306; 84439; 84443

== ENCOUNTER → 2020-11-29 | Outpatient (CLI) | payer MEDICARE ==
[2020-11-29 15:56] LABS: Appearance,BF Cloudy; Nucleated Cells, Body Fluid 550 /uL; RBC, Body Fluid 300 /uL
[2020-11-29 17:53] LABS: Mononuclear WBC,Body Fluid 88 %; Polynuclear WBC,Body Fluid 10 %; Total Cells Counted,Body Fluid 100
== END | disposition home or self-care (01) ==
LOC: LABWHC1 14:52
PROVIDERS: ATTEND Orthopaedic Surgery
DX: M25.561 Pain in right knee (principal); M25.551 Pain in right hip; Z96.651 Presence of right artificial knee joint
CPT/HCPCS: 36415; 85379; 85652; 86140; 87070; 87205; 89050; 89060

== ENCOUNTER → 2021-01-09 | Outpatient (CLI) | payer MEDICARE ==
--- NOTE | 2021-01-09 16:49 | NM ---
EXAMINATION TYPE: NM bone 3 phase DATE OF EXAM: 01/09/2021 COMPARISON: NONE HISTORY: 55-year-old female M25.51 Pain R Hip, Z96.641 Presence of hip joint prosthesis. Additional t echnologist notes: There is possible aseptic loosening of the right femoral stem. The right revision knee arthroplasty has a prior patellectomy and possible stress fracture over the tibial tubercle. Patient with bilateral total hip arthroplasties as well as right knee total arthroplasty with multipl e surgeries on the right knee. TECHNIQUE: Triple phase bone scintigraphy was performed following the injection of 25.2 mCi Tc 99m MD P. Immediate images and 5.5 hours post injection images acquired. Imaging was carried out centered a t the hips and knees. FINDINGS: Initial flow images of the pelvis show no asymmetric hyperemia. Flow images show slight asymmetric increased activity along the lateral margin of the proximal right femur. Delayed images show no significant abnormal increased uptake at either hip. Delayed images at the level of the knee show some uptake at the tibial tray component. No focal abnor mal uptake identified at the level of the tibial tuberosity. Suspect some degenerative uptake within the left medial compartment. Symmetric patchy areas of increased uptake within the right and left mid and hindfeet probably on a d egenerative basis. IMPRESSION: 1. Bilateral total hip arthroplasties. No asymmetric increased activity on flow images. Delayed image s also showed no significant abnormal asymmetric activity at the hips to clearly indicate loosening. 2. Some increased activity along the lateral margin of the proximal right femur on pool images could reflect adjacent gluteal tendinopathy or trochanteric bursitis. Clinically correlate. 3. Status post right total knee arthroplasty. There is some nonspecific foci of activity along the ti bial tray component. No abnormal activity at the level of the tibial tuberosity to clearly indicate f racture here.
== END | disposition home or self-care (01) ==
LOC: RADNMMAIN 07:24
PROVIDERS: ATTEND Orthopaedic Surgery
DX: M25.551 Pain in right hip (principal); Z96.643 Presence of artificial hip joint, bilateral; Z96.651 Presence of right artificial knee joint
CPT/HCPCS: 78315; A9503

== ENCOUNTER → 2021-01-14 | Outpatient (CLI) | payer MEDICARE ==
[2021-01-14 08:58] VITALS: BP 93/66; PULSE 95; RESP 18; TEMP 97.4
--- NOTE | 2021-01-14 09:10 | P.PAINCN ---
History of Present Illness - Reason for Consult Consult date: 01/14/21 - Chief Complaint Low back pain - History of Present Illness Karo is a 55-year-old female presenting to clinic today for initial visit for low back pain. She is referred to our office by Dr. Nair for possible repeat lumbar radiofrequency ablation. She has a history of multiple sclerosis, COPD, and bilateral total hip arthroplasty due to avascular necrosis. 2017 she had lumbar medial branch block and lumbar radiofrequency ablation with Dr. Vincent. She reported after the procedure she had greater than 80% pain relief for over 18 months and allowed her to increase her daily activities. Over the last several months that pain is increased. She describes it as a constant ache in her low back that radiates into the groin more on the right than the left. Pain is worse with increased activity and excessive standing. Pain is made better with interventions and ice. 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 Today she rates her pain as 10 out of 10. She is currently wearing a knee brace on her right knee for a right tibial plateau fracture. She denies any bowel or bladder dysfunction related to her back pain, saddle anesthesia, or any other red flag symptoms. Past Medical History Past Medical History: Asthma, COPD, Eye Disorder, Fibromyalgia, GERD/Reflux, Hyperlipidemia, Liver Disease, Neurologic Disorder, Osteoarthritis (OA), Pneumonia, Sleep Apnea/CPAP/BIPAP, Supraventricular Tachycardia (SVT) Additional Past Medical History / Comment(s): Bronchitis, multiple sclerosis, lupus, chronic lumbago, migraines, adrenal insufficiency, POTS, avascular necrosis hips, bilateral optic neuritis, autoimmune hepatitis, anemia, ALEXA w/ Inspire implant surgery. Ongoing coughing, dyspnea, ill since 11/2018. Thyroidectomy 05/17/20 History of Any Multi-Drug Resistant Organisms: None Reported Past Surgical History: Bowel Resection, Cholecystectomy, EPS, Hernia Repair, Hysterectomy, Joint Replacement, Orthopedic Surgery, Tonsillectomy Additional Past Surgical History / Comment(s): left foot, second and third digit surgery 01/12/20, current walking boot to LLE. Multiple bronchoscopies/BALs, bowel "twisted" w/ 8 inches removed, bilat knee arthroscopies, total R knee arthroplasty, bilat hip arthroplasties, R elbow surgery d/t trauma, L ankle breen/shultz, bilat foot surgeries-fractured toe/pinned, neuroma removed, R rotator cuff repair, hypoglossal nerve stimulator (Inspire) for ALEXA, L power port (mediport), past picc line, sinus surgery, bilat blepharoplasties, EGD/colonoscopy, lap Shaan fundoplasty, TTT, stone removed from R salivary gland. 07/2018 jayleen eye surgery. Past Anesthesia/Blood Transfusion Reactions: Blood Transfusion Reaction Additional Past Anesthesia/Blood Transfusion Reaction / Comm: HX OF BLOOD TRANSFUSION : HAS a CARD STATING K ANTIBODY AFTER RECEIVING A TRANSFUSION Smoking Status: Never smoker - Past Family History Mother Family Medical History: Hypertension, Thyroid Disorder Additional Family Medical History / Comment(s): Mother is an alcoholic. Pt has no contact with her mother. Father Family Medical History: COPD, Hypertension Additional Family Medical History / Comment(s): Father at the age of 69yrs from emphysema. He was a smoker. Brother(s) Additional Family Medical History / Comment(s): Brother-[place] X2 Medications and Allergies Home Medications Medication Instructions Recorded Confirmed Type Montelukast [Singulair] 10 mg PO HS 07/14/13 01/14/21 History Fluticasone/Vilanterol [Breo 1 puff INHALATION RT-DAILY 11/19/15 01/14/21 History Ellipta 200-25 Mcg Inhaler] DULoxetine HCL [Cymbalta] 60 mg PO DAILY 11/13/16 01/14/21 History Esomeprazole Magnesium [NexIUM] 40 mg PO BID 01/05/17 01/14/21 History Fluticasone Nasal Viola [Flonase 2 spr EA NOSTRIL BID 01/05/17 01/14/21 History Nasal Viola] ALPRAZolam [Xanax] 0.5 mg PO BID PRN 12/01/17 01/14/21 History Cholestyramine (with Sugar) 4 gm PO BID 12/01/17 01/14/21 History [Questran Packet] Xeomin 1 dose IM Q90D 12/01/17 01/14/21 History traZODone HCL 150 mg PO HS 12/01/17 01/14/21 History Hydrocortisone [Cortef] 15 mg PO DAILY 09/06/18 01/14/21 History Prochlorperazine [Compazine] 10 mg PO TID PRN 09/06/18 01/14/21 History Topiramate [Topamax] 100 mg PO BID 09/06/18 01/14/21 History Hydrocortisone [Cortef] 5 mg PO HS 12/31/18 01/14/21 History methocarbamoL [Robaxin] 1,000 mg PO Q8H PRN 01/17/19 01/14/21 History Promethaz-Cod 6.25-10 mg/5 ml 5 ml PO Q4-6H PRN 01/18/19 01/14/21 History [Phenergan with Codeine] Cholecalciferol [Vitamin D3 (25 50 mcg PO DAILY 05/02/20 01/14/21 History Mcg = 1000 Iu)] EPINEPHrine (Auto Inject) [Epipen] 0.3 mg IM ONCE PRN 05/02/20 01/14/21 History Albuterol Inhaler [Ventolin Hfa 2 puff INHALATION RT-QID PRN 05/07/20 01/14/21 History Inhaler] Famotidine 40 mg PO HS 05/07/20 01/14/21 History Thyroid,Pork [Shoe Dresser Thyroid] 90 mg PO 01/14/21 History Allergies Allergy/AdvReac Type Severity Reaction Status Date / Time bupropion HCl Allergy Severe Rash/Hives Verified 01/02/21 10:55 [From Wellbutrin] interferon beta Allergy Severe Rash/Hives Verified 01/02/21 10:55 interferon beta-1a Allergy Severe Rash/Hives Verified 01/02/21 10:55 [From Avonex] lamotrigine [From Lamictal] Allergy Severe Rash/Hives Verified 01/02/21 10:55 latex Allergy Severe Anaphylaxis Verified 01/02/21 10:55 oxaprozin [From Daypro] Allergy Severe Rash/Hives Verified 01/02/21 10:55 Penicillins Allergy Severe Rash/Hives Verified 01/02/21 10:55 Sulfa (Sulfonamide Allergy Severe Rash/Hives Verified 01/02/21 10:55 Antibiotics) doxycycline Allergy Unknown Rash/Hives Verified 01/02/21 10:55 adhesive Allergy Rash/Hives Verified 01/02/21 10:55 albumin human Allergy Rash/Hives Verified 01/02/21 10:55 [From Rebif (with albumin)] alcohol Allergy Rash/Hives Verified 01/02/21 10:55 [From Mastisol Adhesive] (in surgical glue) amoxicillin Allergy Rash/Hives Verified 01/02/21 10:55 bee venom protein (honey bee) Allergy Anaphylaxis Verified 01/02/21 10:55 bupropion [From Wellbutrin] Allergy Unknown Verified 01/02/21 10:55 dicyclomine [From Bentyl] Allergy Rash/Hives Verified 01/02/21 10:55 gabapentin Allergy Unknown Verified 01/02/21 10:55 glatiramer (copolymer 1) Allergy Unknown Verified 01/02/21 10:55 [From Copaxone] gum mastic Allergy Rash/Hives Verified 01/02/21 10:55 [From Mastisol Adhesive] insect venom Allergy Anaphylaxis Verified 01/02/21 10:55 interferon christian (human leuk. Allergy Unknown Verified 01/02/21 10:55 derive interferon beta-1b Allergy Unknown Verified 01/02/21 10:55 [From Betaseron] methyl salicylate Allergy Rash/Hives Verified 01/02/21 10:55 [From Mastisol Adhesive] Milk Containing Products Allergy Unknown Verified 01/02/21 10:55 [Dairy] mold Allergy Unknown Verified 01/02/21 10:55 morphine Allergy Unknown Verified 01/02/21 10:55 ragweed pollen Allergy Unknown Verified 01/02/21 10:55 storax Allergy Rash/Hives Verified 01/02/21 10:55 [From Mastisol Adhesive] sulfamethoxazole Allergy Rash/Hives Verified 01/02/21 10:55 [From Bactrim] trimethoprim [From Bactrim] Allergy Rash/Hives Verified 01/02/21 10:55 gluten AdvReac Severe Nausea & Verified 01/02/21 10:55 Vomiting & Diarrhea azithromycin AdvReac Unknown Rash/Hives, Verified 01/02/21 10:55 RED SKIN, ITCHING wheat AdvReac Nausea & Verified 01/02/21 10:55 Vomiting & Diarrhea STERISTRIPS Allergy Severe BLISTERS Uncoded 01/02/21 10:55 TO SKIN DUST Allergy ASTHMA Uncoded 01/02/21 10:55 SYMPTOMS steri strips Allergy Rash/Hives Uncoded 01/02/21 10:55 wasp Allergy Anaphylaxis Uncoded 01/02/21 10:55 Physical Exam REVIEW OF ORGAN SYSTEMS: CONSTITUTIONAL: No fevers or chills. No recent weight loss. EYES: denies troubles with vision. HEENT: No difficulties with hearing. No nosebleeds. No difficulty swallowing. RESPIRATORY: Denies any troubles with breathing or dyspnea on exertion. History of COPD CARDIOVASCULAR: Denies any chest pain, palpitations, or recent heart attacks. GASTROINTESTINAL: Denies fatty food intolerance. Has change in bowel habits and gas bloat. GENITOURINARY: Denies any blood in urine. Has increased urinary frequency. NEUROLOGICAL: + numbness and tingling along the distal extremities. No seizure disorders or headaches. MUSCULOSKELETAL: Has back pain. SKIN:no skin cancer. No rash. PSYCHIATRIC: Denies current depression or suicidal thoughts. ENDOCRINE: Torrance's HEME/LYMPHATIC: Denies any lumps and bumps around the neck. History of deep venous thrombosis. ALLERGY/IMMUNOLOGY: No immunoglobulin therapy. No immune deficiencies. BREAST: Denies current breast lumps, pain or nipple discharge. Physical Examinations : Constitutiona : Cooperative , not in acute distress . HEENT : nech : supple , no Lymphadenopathy : eyes no ptosis , no icterus, no photophobia . : ENT normal of hearing , normal oropharynx , no Thrush . Respiratory : Chest clear to auscultations Bilaterally , no wheezing , no Rhonchi . Cardiovascula : regular rate and rhythem , S1 , S2 , no S3 , no S4. Gastrointestina : abdomen soft no tenderness , bowel sounds , no organomegally . Genitourinary : Defferred . neurologic : Cranial nerve II to XII intact , no focal neurological deffecit . psychatric : alert , oriented X 3 , appropriate affect , intact judgment and insight . Lymphatic : no Lymphadenopathy . musculoskeltal : Cervical Spine motor stregnth in the deltoid and biceps, normal right side , normal Left side motor stregnth biceps and the wrist extensors normal right side ,normal left side . motor stregnth in the triceps muscle . normal Right side , normal Left side deep tendon reflexes= normal at the biceps , normal at Brachioradialis , normal at triceps. cervical facet loading test: Positive Bilaterally Spurling test= negative bilaterally. Neck distraction test= negative bilaterally. Lumber spine moter stegnth lower extremities ,thigh and legs 5/5 Right side , 5/5 Left side deep tendon reflexes : normal Knee Jerk , normal ankle Jerk lumber facet Loading Test= positive Right , positive Left Range of motion of the lumbar spine Flexion 30 degrees, extension 10 degrees strait leg raising test , positive at 20 degree Fabere test= positive Right , and positive left . Sever tenderness over the Sacroiliac joint on the Right , and Left sides Gaenslen test= positive bilaterally. Seated flexion test= positive bilaterally. Assessment and Plan Assessment: Assessment and plan Assessment: Multiple sclerosis COPD Bilateral total hip arthroplasty Torrance's Lumbar spondylosis with facet arthropathy without myelopathy Sacroiliac joint dysfunction Plan: Patient could fit for repeat lumbar radiofrequency ablation bilateral L4 5 and L5-S1 Dr. Nieves was available by phone for consultation during his visit. I have spent 50 minutes on patient care today. The time was used to review the medical records including relevant urine studies and Prescription history (MAPs), review of the available imaging, evaluation and examination of the patient, coordination of care with the medical staff and if applicable referring physicians, as well as creation of the medical record. - PQRS measures = - Patient's medications are documented in the chart. -Tobacco use is negative -Patient's has not received pneumococcal vaccine. -Advanced care planning discussed, patient not eligible. -Opiate contract not signed. -Pain positive and follow-up visit/procedure is scheduled. -Patient's blood pressure measured 93/66 , and documented in the record ,and patient will follow up with the primary care. -Patient was not identified as an unhealthy alcohol user Time with Patient: Greater than 30 PQRS Measure Charge Sheet - Pain Location Right Hip Non-Pharmacological Interventions: Chiropractic Treatment, Exercise, Heat, Home Exercise, Ice, Inactivity, Physical Therapy, Stretching Pharmacological Interventions: Block, Epidural, Medication PQRS Narrative: Smoking Status Never smoker Home Medications: Ambulatory Orders Montelukast [Singulair] 10 mg PO HS 07/14/13 Fluticasone/Vilanterol [Breo Ellipta 200-25 Mcg Inhaler] 1 puff INHALATION RT- DAILY 11/19/15 DULoxetine HCL [Cymbalta] 60 mg PO DAILY 11/13/16 Esomeprazole Magnesium [NexIUM] 40 mg PO BID 01/05/17 Fluticasone Nasal Viola [Flonase Nasal Viola] 2 spr EA NOSTRIL BID 01/05/17 ALPRAZolam [Xanax] 0.5 mg PO BID PRN 12/01/17 Cholestyramine (with Sugar) [Questran Packet] 4 gm PO BID 12/01/17 Xeomin 1 dose IM Q90D 12/01/17 traZODone HCL 150 mg PO HS 12/01/17 Hydrocortisone [Cortef] 15 mg PO DAILY 09/06/18 Prochlorperazine [Compazine] 10 mg PO TID PRN 09/06/18 Topiramate [Topamax] 100 mg PO BID 09/06/18 Hydrocortisone [Cortef] 5 mg PO HS 12/31/18 methocarbamoL [Robaxin] 1,000 mg PO Q8H PRN 01/17/19 Promethaz-Cod 6.25-10 mg/5 ml [Phenergan with Codeine] 5 ml PO Q4-6H PRN 01/18/19 Cholecalciferol [Vitamin D3 (25 Mcg = 1000 Iu)] 50 mcg PO DAILY 05/02/20 EPINEPHrine (Auto Inject) [Epipen] 0.3 mg IM ONCE PRN 05/02/20 Albuterol Inhaler [Ventolin Hfa Inhaler] 2 puff INHALATION RT-QID PRN 05/07/20 Famotidine 40 mg PO HS 05/07/20 Thyroid,Pork [Shoe Dresser Thyroid] 90 mg PO 01/14/21
== END ==
LOC: PNWHC3 07:56
PROVIDERS: ATTEND Student in an Organized Health Care Education/Training Program
DX: M47.816 Spondylosis without myelopathy or radiculopathy, lumbar region (principal); G35 Multiple sclerosis; J44.9 Chronic obstructive pulmonary disease, unspecified; Z96.643 Presence of artificial hip joint, bilateral; E27.1 Primary adrenocortical insufficiency; M46.1 Sacroiliitis, not elsewhere classified; Z88.0 Allergy status to penicillin; Z88.2 Allergy status to sulfonamides; Z88.1 Allergy status to other antibiotic agents; Z91.030 Bee allergy status; Z91.040 Latex allergy status; Z88.8 Allergy status to other drugs, medicaments and biological substances; Z88.5 Allergy status to narcotic agent; Z91.011 Allergy to milk products; Z91.018 Allergy to other foods; Z91.048 Other nonmedicinal substance allergy status
CPT/HCPCS: 99211

== ENCOUNTER 2021-02-05 07:57 | Day surgery (SDC) | payer MEDICARE ==
[2021-02-05 08:35] VITALS: BP 105/69; PULSE 80; RESP 16; TEMP 98.4
--- NOTE | 2021-02-05 11:10 | US ---
EXAMINATION TYPE: US extremity nonvasc complete RT DATE OF EXAM: 02/05/2021 COMPARISON: NONE CLINICAL HISTORY: 55-year-old female M25.511, M25.651. Patient status post right total arthroplasty w ith aggressive right hip pain. Technique: Multiple sonographic images of the anterior right hip centered along the femoral head neck junction utilizing longitudinal scanning. Findings: The patient's prosthetic femoral head and neck is identified utilizing an anterior approach. During r eal-time scanning, we are unable to identify any appreciable fluid to target for aspiration. IMPRESSION: Unable to identify any appreciable fluid to target for right hip aspiration status post total arthrop lasty.
== END 2021-02-05 09:20 | disposition home or self-care (01) ==
LOC: RADPROMAIN 07:57
PROVIDERS: ATTEND Orthopaedic Surgery
DX: M25.651 Stiffness of right hip, not elsewhere classified (principal); M25.511 Pain in right shoulder; Z96.641 Presence of right artificial hip joint; Z53.8 Procedure and treatment not carried out for other reasons

== ENCOUNTER → 2021-03-28 | Outpatient (CLI) | payer MEDICARE | LOC: PROCWHC3 10:01 | PROVIDERS: ATTEND Internal Medicine | DX: Z53.9 Procedure and treatment not carried out, unspecified reason (principal) ==

== ENCOUNTER → 2021-10-21 | Outpatient (CLI) | payer MEDICARE ==
--- NOTE | 2021-10-21 11:55 | MM ---
Reason for Exam: Screening (asymptomatic). Last mammogram was performed 1 year(s) and 1 month(s) ago. Patient History: Menarche at age 13. Patient has no children. Left ovary removed at age 37. Right ovary removed at age 37. Hysterectomy at age 37. Postmenopausal. Estrogen for 9 years from age 38 until age 47. Hormonal Contraceptives for 7 years from age 27 until age 34. 06/2005, Benign Excisional Biopsy on the left side. Core Biopsy on the Right side. Core Biopsy on the Right side. 06/17/2004, Ultrasound-Guided Core Biopsy on the Right side. 06/17/2004, Ultrasound-Guided Core Biopsy on the Right side. Paternal grandmother had breast cancer. Paternal aunt had breast cancer. Risk Values: Elsie 5 year model risk: 2.0%. NCI Lifetime model risk: 13.3%. Prior Study Comparison: 03/25/2013 Bilateral Screening Mammogram, [facility]. 03/31/2014 Bilateral Screening Mammogram, [facility]. 09/21/2020 Bilateral Screening Mammogram, [facility]. Tissue Density: The breast tissue is heterogeneously dense. This may lower the sensitivity of mammography. Findings: Analyzed By CAD. There is a biopsy clip in the right breast. Partial visualization of a calculus is noted. There is no suspicious group of microcalcifications or new suspicious mass in either breast. Overall Assessment: Negative, BI-RAD 1 Management: Screening Mammogram of both breasts in 1 year. A clinical breast exam by your physician is recommended on an annual basis and results should be correlated with mammographic findings. Electronically signed and approved by: Seferino Larios DO
== END | disposition home or self-care (01) ==
LOC: RADMAMWWP 11:10
PROVIDERS: ATTEND Family Medicine
DX: Z12.31 Encounter for screening mammogram for malignant neoplasm of breast (principal); Z80.3 Family history of malignant neoplasm of breast; Z78.0 Asymptomatic menopausal state
CPT/HCPCS: 77067

== ENCOUNTER → 2022-12-03 | Outpatient (CLI) | payer MEDICARE ==
--- NOTE | 2022-12-04 10:54 | MM ---
Reason for Exam: Screening (asymptomatic). Last mammogram was performed 1 year(s) and 2 month(s) ago. Patient History: Menarche at age 13. Patient has no children. Left ovary removed at age 37. Right ovary removed at age 37. Hysterectomy at age 37. Postmenopausal. Estrogen for 9 years from age 38 until age 47. Hormonal Contraceptives for 7 years from age 27 until age 34. 06/2005, Benign Excisional Biopsy on the left side. Core Biopsy on the Right side. Core Biopsy on the Right side. 06/17/2004, Ultrasound-Guided Core Biopsy on the Right side. 06/17/2004, Ultrasound-Guided Core Biopsy on the Right side. Paternal grandmother had breast cancer. Paternal aunt had breast cancer. Risk Values: Elsie 5 year model risk: 2.1%. NCI Lifetime model risk: 13.1%. Prior Study Comparison: 03/25/2013 Bilateral Screening Mammogram, [facility]. 03/31/2014 Bilateral Screening Mammogram, [facility]. 09/21/2020 Bilateral Screening Mammogram, [facility]. 10/21/2021 Bilateral MG screening mammo w CAD, [facility]. Tissue Density: The breast tissue is heterogeneously dense. This may lower the sensitivity of mammography. Findings: Analyzed By CAD. There is no suspicious group of microcalcifications or new suspicious mass in either breast. Overall Assessment: Negative, BI-RAD 1 Management: Screening Mammogram of both breasts in 1 year. . Patient should continue monthly self-breast exams. A clinical breast exam by your physician is recommended on an annual basis. This exam should not preclude additional follow-up of suspicious palpable abnormalities. Note on Elsie scores and lifetime risk: 1. A Elsie score greater than 3% is considered moderate risk. If this is the case, consider specialist referral to assess eligibility for a risk reducing agent. 2. If overall lifetime risk for the development of breast cancer is 20% or higher, the patient may qualify for future screening with alternating mammogram and breast MRI. Electronically signed and approved by: Pratik Saab M.D. Radiologis
== END | disposition home or self-care (01) ==
LOC: RADMAMWWP 07:28
PROVIDERS: ATTEND Family Medicine
DX: Z12.31 Encounter for screening mammogram for malignant neoplasm of breast (principal); Z80.3 Family history of malignant neoplasm of breast; Z78.0 Asymptomatic menopausal state
CPT/HCPCS: 77067

== ENCOUNTER → 2023-12-10 | Outpatient (CLI) | payer MEDICARE ==
--- NOTE | 2023-12-11 09:10 | MM ---
Reason for Exam: Screening (asymptomatic). Last screening mammogram was performed 12 month(s) ago. Patient History: Menarche at age 13. Patient has no children. Left ovary removed at age 37. Right ovary removed at age 37. Hysterectomy at age 37. Postmenopausal. Estrogen for 9 years from age 38 until age 47. Hormonal Contraceptives for 7 years from age 27 until age 34. 06/2005, Benign Excisional Biopsy on the left side. Core Biopsy on the Right side. Core Biopsy on the Right side. 06/17/2004, Ultrasound-Guided Core Biopsy on the Right side. 06/17/2004, Ultrasound-Guided Core Biopsy on the Right side. Paternal grandmother had breast cancer. Paternal aunt had breast cancer. Risk Values: Elsie 5 year model risk: 2.1%. NCI Lifetime model risk: 12.8%. Prior Study Comparison: 09/21/2020 Bilateral Screening Mammogram, [facility]. 10/21/2021 Bilateral MG screening mammo w CAD, [facility]. 12/03/2022 Bilateral MG screening mammo w CAD, [facility]. Tissue Density: There are scattered areas of fibroglandular density. Findings: Analyzed By CAD. Right breast biopsy clip. Right breast: There is no suspicious group of microcalcifications or new suspicious mass. Left breast: There is no suspicious group of microcalcifications or new suspicious mass. Overall Assessment: Benign, BI-RAD 2 Management: Screening Mammogram of both breasts in [address] [facility] will attempt to contact patient to return for supplemental views and ultrasound if indicated. Patient should continue monthly self-breast exams. A clinical breast exam by your physician is recommended on an annual basis. This exam should not preclude additional follow-up of suspicious palpable abnormalities. Note on Elsie scores and lifetime risk: 1. A Elsie score greater than 3% is considered moderate risk. If this is the case, consider specialist referral to assess eligibility for a risk reducing agent. 2. If overall lifetime risk for the development of breast cancer is 20% or higher, the patient may qualify for future screening with alternating mammogram and breast MRI. [facility], , 12/11/2023 9:08 AM. Electronically signed and approved by: Seferino Larios DO
== END | disposition home or self-care (01) ==
LOC: RADMAMWWP 07:24
PROVIDERS: ATTEND Family Medicine
CPT/HCPCS: 77067